=== PATIENT | male | born 1980 | race Caucasian/White ===

== ENCOUNTER 2017-04-05 10:00 | Emergency (ER) | payer MEDICAID ==
[~2017-04-05] VITALS: Ht 193 cm; Wt 88.9 kg
[~2017-04-05 10:00] MED LIST: ANXIETY PILL PO; BACTRIM DS 8001 TAB PO; ESCITALOPRAM5 MG PO; FACTOR 8 SQ; KEFLEX 500MG.500 MG PO; KEFLEX500 M1 PO; MEDROL 4MG. DOSE4 MG PO; VENTOLIN H0.09 MG/Ac IH; WELLBUTRIN XL300 MG PO
[2017-04-05 10:13] LABS: HEMOGLOBIN 15.9 g/dL (14.1-18.0); LYMPH # 1.5 K/mm3 (0.7-4.5); LYMPH % 25.5 % (10-50)
--- OUTSIDE RECORDS SUMMARY | 2017-04-05 10:31 | External Medical Summary Rpt ---
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 [address] 30 AR EV 0 MA EN MG CY J CA 03 PS 93 UL 8 E # 03 93 OX 00 12 12 0 90 30 WA 44 CO Ac AZ 78 -1 -1 .0 L- 90 OP ti EP 12 6- 6- 00 MA 52 ER ve AM 80 20 20 RT 3 90 10 10 MATT 10 1 PH HN AR G MG MA CY CA # PS UL 10 E 05 91 67 12 12 3 60 30 WA 70 CO Ac 76 -1 -1 .0 L- 98 OP ti 70 6- 6- 00 MA 74 ER ve 13 20 20 RT 3 36 10 10 MATT 0 PH HN AR G MA CY # 10 05 91 AL 68 12 12 5 79 8 BI 10 PE Ac PH 51 -0 -0 20 OP 05 TE ti AN 64 6- 8- .0 AR 4 RS ve AT 60 20 20 00 TN ON E 30 10 10 ER 1, 2 S NIELSEN 00 IN SA 0- N 40 CA M 0 RE UN IT IN C # AL 00 08 EN 60 11 12 0 50 9 CL 22 LA Ac DO 95 -0 -0 .0 IN 80 WR ti CE 10 8- 6- 00 IC 94 EN ve T 60 20 20 CE 5- 28 10 10 PH [address] 5 MA EV TA CY EN BL J ET LL C AL 68 10 11 0 99 28 BI 99 PE Ac PH 51 -2 -1 00 OP 30 TE ti AN 64 5- 1- .0 AR RS ve AT 60 20 20 00 TN ON E 30 10 10 ER 1, 2 S NIELSEN 00 IN SA 0- N 40 CA M 0 RE UN IT IN C # AL 00 08 NC 68 11 11 0 15 4 CL 22 CO Ac OM 38 -0 -0 .0 IN 61 OP ti ET 20 4- 4- 00 IC 80 ER ve MULLER 04 20 20 ZI 10 10 10 PH MATT NE 1 AR HN MA G 25 CY MG LL C TA BL ET OX 00 10 10 60 6 RI 85 BA Ac YC 60 -2 -2 .0 TE 59 RR ti OD 34 8- 9- 00 38 ON ve ON 99 20 20 AI E- 82 10 10 D MA AC 1 PH RK ET AR T AM MA IN CY OP HE 03 N 93 5- 8 32 # 5 03 93 00 09 10 1 30 30 CL 22 CO Ac 02 -1 -2 .0 IN 30 OP ti 45 0- 9- 00 IC 27 ER ve 80 20 20 09 10 10 PH MATT 0 AR HN MA G CY LL C AL 68 10 10 0 65 17 BI 98 PE Ac PH 51 -2 -2 50 OP 76 TE ti AN 64 5- 8- .0 AR 1 RS ve AT 60 20 20 00 TN ON E 30 10 10 ER 1, 2 S NIELSEN 00 IN SA 0- N 40 CA M 0 RE UN IT IN C # AL 00 08 AL 68 08 10 3 38 8 BI 98 PE Ac PH 51 -0 -2 00 OP 56 TE ti AN 64 5- 1- .0 AR RS ve AT 60 20 20 00 TN ON E 20 10 10 ER 50 1 S NIELSEN 0- IN SA 20 N 0 CA M UN RE IT IN C AL # 00 08 OX 00 10 10 0 90 30 CL 22 NO Ac AZ 17 -2 -2 .0 IN 52 RF ti EP 24 0- 0- 00 IC 99 LE ve AM 80 20 20 ET 46 10 10 PH R 10 0 AR MA HE MG CY NR Y CA LL PS C UL E BU 00 10 10 0 60 30 CL 22 CO Ac NC 18 -1 -1 .0 IN 49 OP ti OP 50 4- 4- 00 IC 78 ER ve IO 41 20 20 N 50 10 10 PH MATT HC 1 AR HN L MA G SR CY 15 LL 0 C MG TA BL ET BU 00 09 09 2 30 30 CL 22 CO Ac NC 18 -2 -2 .0 IN 37 OP ti OP 50 4- 4- 00 IC 87 ER ve IO 41 20 20 N 50 10 10 PH MATT HC 1 AR HN L MA G SR CY 15 LL 0 C MG TA BL ET 00 09 09 1 30 30 CL 22 CO Ac 02 -1 -1 .0 IN 30 OP ti 45 0- 0- 00 IC 27 ER ve 80 20 20 09 10 10 PH MATT 0 AR HN MA G CY LL C AL 68 08 09 4 39 8 AC 30 PE Ac PH 51 -0 -0 20 CR 85 TE ti AN 64 5- 9- .0 ED 1 RS ve AT 60 20 20 00 O ON E 20 10 10 HE 50 1 AL NIELSEN 0- TH SA 20 N 0 GR M UN OU IT P IN C AL # 07 0 OX 00 09 09 0 90 30 CL 22 CO Ac AZ 17 -0 -0 .0 IN 29 OP ti EP 24 9- 9- 00 IC 71 ER ve AM 80 20 20 46 10 10 PH MATT 10 0 AR HN MA G MG CY CA LL PS C UL E BU 00 08 08 3 30 30 RI 84 CO Ac NC 18 -2 -2 .0 TE 70 OP ti OP 50 5- 5- 00 72 ER ve IO 41 20 20 AI N 56 10 10 D MATT HC 0 PH HN L AR G SR MA CY 15 0 03 MG 93 8 TA # BL 03 ET 93 NY 51 08 08 15 14 RI [address] 67 -1 -1 .0 TE 59 MM ti AT 21 7- 7- 00 86 ON ve IN 26 20 20 AI D -T 30 10 10 D KA RI 1 PH TH AM AR AR CI MA IN NO CY E LO Y NE 03 93 CR 8 EA # M 03 93 60 08 08 1 18 5 RI 84 MULLER Ac 25 -1 -1 0. TE 59 MM ti 80 7- 7- 00 87 ON ve 23 20 20 0 AI D 91 10 10 D KA 6 PH TH AR AR MA IN CY E Y 03 93 8 # 03 93 59 06 08 2 8. 16 RI 83 NO Ac 31 -1 -1 50 TE 82 RF ti 00 6- 7- 0 34 LE ve 57 20 20 AI ET 92 10 10 D R 0 PH AR HE MA NR CY Y 03 93 8 # 03 93 00 04 08 5 30 30 CL 21 CO Ac 37 -0 -0 .0 IN 41 OP ti 84 8- 9- 00 IC 68 ER ve 18 20 20 80 10 10 PH MATT 5 AR HN MA G CY LL C AL 68 08 08 5 39 8 AC 27 PE Ac PH 51 -0 -0 20 CR 72 TE ti AN 64 5- 9- .0 ED 0 RS ve AT 60 20 20 00 O ON E 20 10 10 HE 50 1 AL NIELSEN 0- TH SA 20 N 0 GR M UN OU IT P IN C AL # 07 0 OX 00 06 07 1 90 30 CL 21 CO Ac AZ 17 -2 -3 .0 IN 86 OP ti EP 24 3- 0- 00 IC 17 ER ve AM 80 20 20 46 10 10 PH MATT 10 0 AR HN MA G MG CY CA LL PS C UL E 00 06 07 3 30 30 RI 83 NO Ac 02 -1 -2 .0 TE 82 RF ti 45 6- 6- 00 33 LE ve 80 20 20 AI ET 09 10 10 D R 0 PH AR HE MA NR CY Y 03 93 8 # 03 93 00 04 07 5 30 30 CL 21 CO Ac 37 -0 -0 .0 IN 41 OP ti 84 8- 9- 00 IC 68 ER ve 18 20 20 80 10 10 PH MATT 5 AR HN MA G CY LL C AL 68 02 07 3 39 8 AC 24 PE Ac PH 51 -1 -0 20 CR 75 TE ti AN 64 8- 6- .0 ED 0 RS ve AT 60 20 20 00 O ON E 20 10 10 HE 50 1 AL NIELSEN 0- TH SA 20 N 0 GR M UN OU IT P IN C AL # 07 0 NIELSEN 53 06 06 0 14 7 CL 21 MULLER Ac LF 74 -2 -2 .0 IN 88 MM ti AM 60 9- 9- 00 IC 87 ON ve ET 27 20 20 D HO 20 10 10 PH KA XA 5 AR TH ZO MA AR LE CY IN -T E MP LL Y C DS TA BL ET OX 00 06 06 1 90 30 CL 21 CO Ac AZ 17 -2 -2 .0 IN 86 OP ti EP 24 3- 3- 00 IC 17 ER ve AM 80 20 20 46 10 10 PH MATT 10 0 AR HN MA G MG CY CA LL PS C UL E 00 06 06 3 30 30 RI 83 NO Ac 02 -1 -1 .0 TE 82 RF ti 45 6- 6- 00 33 LE ve 80 20 20 AI ET 09 10 10 D R 0 PH AR HE MA NR CY Y 03 93 8 # 03 93 59 06 06 2 8. 16 RI 83 NO Ac 31 -1 -1 50 TE 82 RF ti 00 6- 6- 0 34 LE ve 57 20 20 AI ET 92 10 10 D R 0 PH AR HE MA NR CY Y 03 93 8 # 03 93 00 04 06 5 30 30 CL 21 CO Ac 37 -0 -0 .0 IN 41 OP ti 84 8- 7- 00 IC 68 ER ve 18 20 20 80 10 10 PH MATT 5 AR HN MA G CY LL C AL 68 02 06 3 40 8 AC 24 PE Ac PH 51 -1 -0 00 CR 75 TE ti AN 64 8- 1- .0 ED 0 RS ve AT 60 20 20 00 O ON E 20 10 10 HE 50 1 AL NIELSEN 0- TH SA 20 N 0 GR M UN OU IT P IN C AL # 07 0 64 05 05 18 5 RI 83 NO Ac 37 -1 -1 0. TE 39 RF ti 60 4- 4- 00 12 LE ve 72 20 20 0 AI ET 91 10 10 D R 6 PH AR HE MA NR CY Y 03 93 8 # 03 93 NIELSEN 00 05 05 20 10 RI 83 NO Ac LF 60 -1 -1 .0 TE 34 RF ti AM 35 1- 1- 00 80 LE ve ET 78 20 20 AI ET HO 12 10 10 D R XA 8 PH ZO AR HE LE MA NR -T CY Y MP 03 DS 93 8 TA # BL 03 ET 93 BE 67 05 05 0 30 10 CL 21 MU Ac NZ 87 -0 -0 .0 IN 59 LB ti ON 70 8- 8- 00 IC 99 ER ve AT 10 20 20 RY AT 60 10 10 PH E 1 AR BR 20 MA IA 0 CY N MG T LL CA C PS UL E 00 04 05 5 30 30 CL 21 CO Ac 37 -0 -0 .0 IN 41 OP ti 84 8- 7- 00 IC 68 ER ve 18 20 20 80 10 10 PH MATT 5 AR HN MA G CY LL C NC 00 04 04 12 3 RI 83 CO Ac OM 78 -2 -2 .0 TE 14 OP ti ET 11 6- 6- 00 37 ER ve MULLER 83 20 20 AI ZI 00 10 10 D MATT NE 1 PH HN AR G 25 MA CY MG 03 TA 93 BL 8 ET # 03 93 60 04 04 18 5 RI 83 MULLER Ac 25 -1 -1 0. TE 01 MM ti 80 6- 6- 00 61 ON ve 23 20 20 0 AI D 91 10 10 D KA 6 PH TH AR AR MA IN CY E Y 03 93 8 # 03 93 NIELSEN 00 04 04 14 7 RI 83 MULLER Ac LF 60 -1 -1 .0 TE 01 MM ti AM 35 6- 6- 00 62 ON ve ET 78 20 20 AI D HO 12 10 10 D KA XA 8 PH TH ZO AR AR LE MA IN -T CY E MP Y 03 DS 93 8 TA # BL 03 ET 93 00 04 04 5 30 30 CL 21 CO Ac 37 -0 -0 .0 IN 41 OP ti 84 8- 8- 00 IC 68 ER ve 18 20 20 80 10 10 PH MATT 5 AR HN MA G CY LL C OX 00 02 04 1 90 30 WA 44 CO Ac AZ 78 -2 -0 .0 L- 83 OP ti EP 12 2- 5- 00 MA 66 ER ve AM 80 20 20 RT 0 90 10 10 MATT 10 1 PH HN AR G MG MA CY CA # PS UL 10 E 05 91 AL 68 02 03 3 16 8 AC 24 PE Ac PH 51 -1 -2 80 CR 75 TE ti AN 64 8- 9- 0. ED 02 RS ve AT 60 20 20 00 O ON E 30 10 10 0 HE 1, 2 AL NIELSEN 00 TH SA 0- N 40 GR M 0 OU UN P IT IN C # AL 07 0 00 03 03 10 10 RI 82 CO Ac 09 -2 -2 .0 TE 70 OP ti 51 5- 5- 00 75 ER ve 29 20 20 AI 00 10 10 D MATT 6 PH HN AR G MA CY 03 93 8 # 03 93 CI 13 03 03 2 30 30 RI 82 CO Ac TA 66 -2 -2 .0 TE 70 OP ti LO 80 5- 5- 00 76 ER ve NC 01 20 20 AI AM 10 10 10 D MATT 1 PH HN HB AR G R MA 40 CY MG 03 93 TA 8 BL # ET 03 93 66 03 03 20 10 RI 82 NO Ac 99 -0 -0 .0 TE 39 RF ti 20 4- 4- 00 64 LE ve 23 20 20 AI ET 56 10 10 D R 0 PH AR HE MA NR CY Y 03 93 8 # 03 93 AL 68 02 02 00 41 8 AC 24 PE Ac PH 51 -1 -2 60 CR 75 TE ti AN 64 8- 6- .0 ED 0 RS ve AT 60 20 20 00 O ON E 20 10 10 HE 50 1 AL NIELSEN 0- TH SA 20 N 0 GR M UN OU IT P IN C AL CE 65 01 01 00 28 7 RI 81 MULLER Ac FU 86 -2 -2 .0 TE 79 MM ti RO 20 0- 8- 00 73 ON ve XI 03 20 20 AI D ME 42 10 10 D KA 0 PH TH AX AR AR ET M IN IL #3 E 93 Y 25 8 0 MG TA B 60 01 01 00 12 3 RI 81 MULLER Ac 25 -2 -2 0. TE 79 MM ti 80 0- 8- 00 74 ON ve 23 20 20 0 AI D 91 10 10 D KA 6 PH TH AR AR M IN #3 E 93 Y 8 59 01 01 00 8. 25 RI 81 MULLER Ac 31 -2 -2 50 TE 79 MM ti 00 0- 8- 0 75 ON ve 57 20 20 AI D 92 10 10 D KA 0 PH TH AR AR M IN #3 E 93 Y 8 DE 00 12 01 00 75 5 CL 20 NO Ac XA 05 -3 -1 .0 IN 79 RF ti ME 43 1- 4- 00 IC 10 LE ve TH 17 20 20 ET 76 09 10 PH R ON 3 AR E MA HE 0. CY NR 5 Y MG /5 ML LI Q AL 68 11 12 00 35 7 AC 23 PE Ac PH 51 -2 -1 70 CR 49 TE ti AN 64 5- 7- .0 ED 0 RS ve AT 60 20 20 00 O ON E 20 09 09 HE 50 1 AL NIELSEN 0- TH SA 20 N 0 GR M UN OU IT P IN C AL MU 63 11 11 00 20 10 WA 88 KE Ac CI 82 -1 -1 .0 L- 15 AG ti NE 40 2- 9- 00 MA 01 LE ve X 05 20 20 RT 1 D 73 09 09 RI ER 6 PH TA AR K 60 MA 0- CY 60 #5 MG 91 TA BL ET DO 00 11 11 00 14 7 RI 80 MU Ac XY 14 -0 -1 .0 TE 74 LB ti CY 33 6- 9- 00 98 ER ve CL 14 20 20 AI RY IN 20 09 09 D E 5 PH BR HY AR IA CL M N AT #3 T E 93 10 8 0 MG CA P AL 68 10 10 00 11 31 AC 22 PE Ac PH 51 -0 -2 22 CR 62 TE ti AN 64 6- 2- 0. ED 8 RS ve AT 60 20 20 00 O ON E 20 09 09 0 HE 50 1 AL NIELSEN 0- TH SA 20 N 0 GR M UN OU IT P IN C AL 00 10 10 00 45 3 RI 80 No Ac 40 -1 -2 .0 TE 40 t ti 60 2- 2- 00 11 Av ve 35 20 20 AI ai 70 09 09 D la 5 PH bl AR e M #3 93 8 AL 68 08 10 01 22 30 AC 22 PE Ac PH 51 -1 -0 80 CR 06 TE ti AN 64 8- 8- 0. ED 7 RS ve AT 60 20 20 00 O ON E 30 09 09 0 HE 1, 2 AL NIELSEN 00 TH SA 0- N 40 GR M 0 OU UN P IT IN C AL KE 00 09 09 00 60 30 RI 80 CO Ac TO 09 -1 -2 .0 TE 03 OP ti CO 30 7- 4- 00 45 ER ve NA 84 20 20 AI ZO 09 09 09 D MATT LE 2 PH HN AR G 2% M #3 CR 93 EA 8 M AL 68 08 09 00 22 28 AC 22 PE Ac PH 51 -1 -1 80 CR 06 TE ti AN 64 8- 0- 0. ED 7 RS ve AT 60 20 20 00 O ON E 30 09 09 0 HE 1, 2 AL NIELSEN 00 TH SA 0- N 40 GR M 0 OU UN P IT IN C AL AL 68 08 08 00 51 28 AC 21 PE Ac PH 51 -1 -2 70 CR 76 TE ti AN 64 8- 7- .0 ED 7 RS ve AT 60 20 20 00 O ON E 20 09 09 HE 50 1 AL NIELSEN 0- TH SA 20 N 0 GR M UN OU IT P IN C AL MU 63 07 08 00 36 9 WA 88 NO Ac CI 82 -2 -1 .0 L- 14 RF ti NE 40 8- 3- 00 MA 40 LE ve X 05 20 20 RT 1 ET D 73 09 09 R ER 6 PH AR HE 60 MA NR 0- CY Y 60 #5 MG 91 TA BL ET DO 53 07 08 00 14 7 WA 70 NO Ac XY 48 -2 -1 .0 L- 30 RF ti CY 90 8- 3- 00 MA 04 LE ve CL 11 20 20 RT 0 ET IN 90 09 09 R E 2 PH HY AR HE CL MA NR AT CY Y E 10 #5 0 91 MG CA P AL 68 07 07 00 83 28 AC 21 PE Ac PH 51 -0 -3 20 CR 03 TE ti AN 64 9- 0- .0 ED 1 RS ve AT 60 20 20 00 O ON E 30 09 09 HE 1, 2 AL NIELSEN 00 TH SA 0- N 40 GR M 0 OU UN P IT IN C AL 60 07 07 00 12 3 WA 70 NO Ac 25 -0 -1 0. L- 27 RF ti 80 9- 6- 00 MA 89 LE ve 23 20 20 0 RT 6 ET 91 09 09 R 6 PH AR HE MA NR CY Y #5 91 CE 00 07 07 00 30 30 WA 70 PE Ac LE 02 -0 -1 .0 L- 27 TE ti BR 51 9- 6- 00 MA 93 RS ve EX 52 20 20 RT 5 ON 53 09 09 20 1 PH NIELSEN 0 AR SA MG MA N CY M CA PS #5 UL 91 E HE 00 04 07 01 13 6 AC 19 PE Ac MO 94 -1 -0 80 CR 40 TE ti FI 42 0- 2- 0. ED 3 RS ve L 93 20 20 00 O ON M 20 09 09 0 HE 1, 1 AL NIELSEN 00 TH SA 0 N UN GR M IT OU P NO IN AZ C NA L HE 00 04 06 00 28 6 AC 19 PE Ac MO 94 -1 -0 50 CR 40 TE ti FI 42 0- 4- .0 ED 31 RS ve L 93 20 20 00 O ON M 10 09 09 HE 50 1 AL NIELSEN 0 TH SA UN N IT GR M OU NO P AZ IN NA C L 60 05 05 00 18 4 WA 70 NO Ac 25 -0 -2 0. L- 18 RF ti 80 2- 1- 00 MA 92 LE ve 23 20 20 0 RT 7 ET 91 09 09 R 6 PH AR HE MA NR CY Y #5 91 NIELSEN 53 05 05 00 20 10 WA 70 NO Ac LF 74 -0 -2 .0 L- 18 RF ti AM 60 2- 1- 00 MA 92 LE ve ET 27 20 20 RT 8 ET HO 20 09 09 R XA 5 PH ZO AR HE LE MA NR -T CY Y MP #5 DS 91 TA BL ET VE 00 01 05 01 18 20 WA 70 MULLER Ac NT 17 -0 -2 .0 L- 02 MM ti OL 30 7- 1- 00 MA 87 ON ve IN 68 20 20 RT 6 D 22 09 09 KA HF 0 PH TH A AR AR 90 MA IN CY E MC Y G #5 IN 91 MULLER LE R CE 68 04 05 00 20 10 WA 70 MU Ac PH 18 -2 -0 .0 L- 18 LB ti AL 00 7- 7- 00 MA 13 ER ve EX 12 20 20 RT 6 RY IN 20 09 09 2 PH BR 50 AR IA 0 MA N MG CY T CA #5 PS 91 UL E HE 00 04 04 00 13 6 AC 19 PE Ac MO 94 -1 -2 56 CR 40 TE ti FI 42 0- 3- 0. ED 3 RS ve L 93 20 20 00 O ON M 20 09 09 0 HE 1, 1 AL NIELSEN 00 TH SA 0 N UN GR M IT OU P NO IN AZ C NA L HE 00 09 03 03 13 6 AC 17 PE Ac MO 94 -1 -2 56 CR 11 TE ti FI 42 7- 6- 0. ED 3 RS ve L 93 20 20 00 O ON M 20 08 09 0 HE 1, 1 AL NIELSEN 00 TH SA 0 N UN GR M IT OU P NO IN AZ C NA L HE 00 09 02 02 13 6 AC 17 PE Ac MO 94 -1 -2 56 CR 11 TE ti FI 42 7- 6- 0. ED 3 RS ve L 93 20 20 00 O ON M 20 08 09 0 HE 1, 1 AL NIELSEN 00 TH SA 0 N UN GR M IT OU P NO IN AZ C NA L 00 02 02 00 20 2 WA 70 NO Ac 40 -0 -1 .0 L- 06 RF ti 62 2- 2- 00 MA 26 LE ve 04 20 20 RT 9 ET 10 09 09 R 1 PH AR HE MA NR CY Y #5 91 CI 55 02 02 00 14 7 70 NO Ac NC 11 -0 -1 .0 L- 06 RF ti OF 10 3- 2- 00 MA 58 LE ve LO 12 20 20 RT 7 ET XA 60 09 09 R CI 1 PH N AR HE HC MA NR L CY Y 25 0 #5 MG 91 TA B NIELSEN 53 02 02 00 14 7 WA 70 NO Ac LF 74 -0 -1 .0 L- 06 RF ti AM 60 2- 2- 00 MA 26 LE ve ET 27 20 20 RT 8 ET HO 20 09 09 R XA 5 PH ZO AR HE LE MA NR -T CY Y MP #5 DS 91 TA BL ET HE 00 09 01 01 13 6 AC 17 PE Ac MO 94 -1 -3 56 CR 11 TE ti FI 42 7- 0- 0. ED 3 RS ve L 93 20 20 00 O ON M 20 08 09 0 HE 1, 1 AL NIELSEN 00 TH SA 0 N UN GR M IT OU P NO IN AZ C NA L 60 01 01 01 12 3 WA 70 MULLER Ac 25 -0 -3 0. L- 02 MM ti 80 7- 0- 00 MA 87 ON ve 23 20 20 0 RT 5 D 91 09 09 KA 6 PH TH AR AR MA IN CY E Y #5 91 60 01 01 00 12 3 WA 70 MULLER Ac 25 -0 -1 0. L- 02 MM ti 80 7- 5- 00 MA 87 ON ve 23 20 20 0 RT 5 D 91 09 09 KA 6 PH TH AR AR MA IN CY E Y #5 91 VE 00 01 01 00 18 20 WA 70 MULLER Ac NT 17 -0 -1 .0 L- 02 MM ti OL 30 7- 5- 00 MA 87 ON ve IN 68 20 20 RT 6 D 22 09 09 KA HF 0 PH TH A AR AR 90 MA IN CY E MC Y G #5 IN 91 MULLER LE R HE 00 09 12 00 13 6 AC 17 PE Ac MO 94 -1 -1 56 CR 11 TE ti FI 42 7- 8- 0. ED 3 RS ve L 93 20 20 00 O ON M 20 08 08 0 HE 1, 1 AL NIELSEN 00 TH SA 0 N UN GR M IT OU P NO IN AZ C NA L 00 09 10 00 26 6 AC 16 PE Ac 94 -1 -0 16 CR 04 TE ti 42 7- 9- .0 ED 71 RS ve 93 20 20 00 O ON 50 08 08 HE 2 AL NIELSEN TH SA N GR M OU P IN C HE 00 09 10 00 11 6 AC 16 PE Ac MO 94 -1 -0 04 CR 04 TE ti FI 42 7- 9- 0. ED 7 RS ve L 93 20 20 00 O ON M 30 08 08 0 HE 1, 1 AL NIELSEN 70 TH SA 0 N UN GR M IT OU P NO IN AZ C NA L TR 00 08 08 00 80 20 WA 69 CO Ac IA 16 -1 -2 .0 L- 82 OP ti MC 80 3- 8- 00 MA 92 ER ve IN 00 20 20 RT 6 OL 48 08 08 MATT ON 0 PH HN E AR G 0. MA 1% CY CR #5 EA 91 M 60 08 08 00 18 4 WA 69 CO Ac 25 -1 -2 0. L- 82 OP ti 80 3- 8- 00 MA 92 ER ve 23 20 20 0 RT 4 91 08 08 MATT 6 PH HN AR G MA CY #5 91 00 07 08 00 35 28 AC 14 PE Ac 94 -1 -0 20 CR 98 TE ti 42 6- 1- 0. ED 71 RS ve 93 20 20 00 O ON 50 08 08 0 HE 4 AL NIELSEN TH SA N GR M OU P IN C 00 07 08 00 98 28 AC 14 PE Ac 94 -1 -0 00 CR 98 TE ti 42 6- 1- .0 ED 7 RS ve 93 20 20 00 O ON 50 08 08 HE 3 AL NIELSEN TH SA N GR M OU P IN C 00 06 07 00 24 14 AC 14 PE Ac 94 -3 -1 64 CR 77 TE ti 42 0- 7- 0. ED 31 RS ve 93 20 20 00 O ON 50 08 08 0 HE 4 AL NIELSEN TH SA N GR M OU P IN C 00 06 07 00 30 14 AC 14 PE Ac 94 -3 -1 52 CR 77 TE ti 42 0- 7- .0 ED 3 RS ve 93 20 20 00 O ON 50 08 08 HE 2 AL NIELSEN TH SA N GR M OU P IN C 00 04 07 02 12 6 AC 13 PE Ac 94 -0 -0 96 CR 61 TE ti 42 3- 3- 0. ED 3 RS ve 93 20 20 00 O ON 50 08 08 0 HE 3 AL NIELSEN TH SA N GR M OU P IN C 00 05 06 00 20 5 WA 44 No Ac 40 -2 -0 .0 L- 68 t ti 60 3- 5- 00 MA 40 Av ve 35 20 20 RT 4 ai 70 08 08 la 5 PH bl AR e MA CY #5 91 00 05 06 00 64 14 AC 14 No Ac 94 -2 -0 96 CR 24 t ti 42 2- 5- 0. ED 8 Av ve 93 20 20 00 O ai 50 08 08 0 HE la 3 AL bl TH e GR OU P IN C 00 04 05 01 13 6 AC 13 No Ac 94 -0 -2 56 CR 61 t ti 42 3- 2- 0. ED 3 Av ve 93 20 20 00 O ai 50 08 08 0 HE la 3 AL bl TH e GR OU P IN C 00 04 04 00 13 6 AC 13 No Ac 94 -0 -1 74 CR 61 t ti 42 3- 0- 0. ED 3 Av ve 93 20 20 00 O ai 50 08 08 0 HE la 3 AL bl TH e GR OU P IN C CE 00 01 04 01 30 30 WA 69 No Ac LE 02 -1 -0 .0 L- 56 t ti BR 51 7- 7- 00 MA 51 Av ve EX 52 20 20 RT 0 ai 53 08 08 la 20 1 PH bl 0 AR e MG MA CY CA PS #5 UL 91 E VE 00 03 04 00 18 20 WA 69 No Ac NT 17 -0 -0 .0 L- 63 t ti OL 30 6- 7- 00 MA 12 Av ve IN 68 20 20 RT 1 ai 22 08 08 la HF 0 PH bl A AR e 90 MA CY MC G #5 IN 91 MULLER LE R MU 63 03 04 00 20 10 WA 88 No Ac CI 82 -0 -0 .0 L- 11 t ti NE 40 6- 7- 00 MA 93 Av ve X 05 20 20 RT 0 ai D 71 08 08 la ER 8 PH bl AR e 60 MA 0- CY 60 #5 MG 91 TA BL ET 63 01 03 00 21 7 WA 69 No Ac 30 -2 -2 .0 L- 57 t ti 40 9- 6- 00 MA 99 Av ve 65 20 20 RT 5 ai 70 08 08 la 1 PH bl AR e MA CY #5 91 00 09 03 00 30 6 AC 41 No Ac 94 -1 -2 36 CR 19 t ti 42 7- 6- .0 ED 57 Av ve 93 20 20 00 O ai 50 07 08 HE la 2 AL bl TH e GR OU P IN C 00 09 03 00 10 6 AC 31 No Ac 94 -1 -2 44 CR 19 t ti 42 7- 6- 0. ED 57 Av ve 93 20 20 00 O ai 50 07 08 0 HE la 4 AL bl TH e GR OU P IN C 59 01 03 00 14 7 WA 69 No Ac 70 -2 -2 .0 L- 57 t ti 20 9- 6- 00 MA 99 Av ve 81 20 20 RT 6 ai 90 08 08 la 1 PH bl AR e MA CY #5 91 CE 00 01 03 00 30 30 WA 69 No Ac LE 02 -1 -2 .0 L- 56 t ti BR 51 7- 5- 00 MA 51 Av ve EX 52 20 20 RT 0 ai 53 08 08 la 20 1 PH bl 0 AR e MG MA CY CA PS #5 UL 91 E 00 09 03 01 10 6 AC 11 No Ac 94 -1 -2 44 CR 95 t ti 42 7- 4- 0. ED 71 Av ve 93 20 20 00 O ai 50 07 08 0 HE la 4 AL bl TH e GR OU P IN C 00 09 03 01 30 6 AC 11 No Ac 94 -1 -2 36 CR 95 t ti 42 7- 4- .0 ED 7 Av ve 93 20 20 00 O ai 50 07 08 HE la 2 AL bl TH e GR OU P IN C Immunization Name Date Rout CVX Reac Dose Comm Prov Is Faci e tion ent ider Refu lity Give sed n TDAP 03-10 115 [facility] No [facility] 4-20 O O VACC 15 DIST DIST INE RICT RICT 7 YRS/ HLTH HLTH > IM DEPT DEPT [place] TDAP 09-11 115 [facility] No EDEN 7-20 [facility] VACC 15 MEM MEM INE 7 HOSP HOSP YRS/ INC INC > IM IIV3 06-10 141 EDEN No EDEN 9-20 [facility] VACC 12 CO CO INE HEAL HEAL SPLI TH TH T CENT CENT VIRU ER ER S 0.5 ML DOSA GE IM USE Results Labs Lab Lab Date Result Refere Interp Status Commen Order Detail nces retati t Range on CHLAMYDIA AND GONORRHEA TESTING (07-03-2012 14:45) Chlamyd NEGATIV complet ia 012 E ed trachom 14:45 atis rRNA [Presen ce] in Unspeci fied specime n by Probe & target amplifi cation method Neisser NEGATIV complet ia 012 E ed gonorrh 14:45 oeae rRNA [Presen ce] in Unspeci fied specime n by Probe & target amplifi cation method Treponema pallidum IgG Ab [Presence] in Serum by Immunoassay (07-03-2012 14:45) Trepone NON-JULIANNE complet ma 012 CTIVE ed pallidu 14:45 m IgG Ab [Presen ce] in Serum by Immunoa ssay Treponema pallidum IgG Ab [Presence] in Serum by Immunoassay (07-03-2012 14:45) COLLECT J. complet OR 012 HOLLOWAY ed 14:45 RN ETHNICI W complet TY 012 ed 14:45 PURPOSE DIAGNOS complet OF 012 TIC ed EXAM 14:45 SPECIME BLOOD complet N 012 ed SOURCE 14:45 CHART NA complet NUMBER 012 ed 14:45 Trepone Pending complet ma 012 ed pallidu 14:45 m IgG Ab [Presen ce] in Serum by Immunoa ssay CHLAMYDIA AND GONORRHEA TESTING (07-03-2012 14:45) COLLECT J. complet [place] 012 HOLLOWAY ed 14:45 RN ETHNICI WHITE, complet TY 012 NON-HIS ed 14:45 PANIC KIT December complet EXPIRAT 012 30, ed ION 14:45 2012 DATE SYMPTOM NO complet S 012 ed 14:45 REASON VOLUNTE complet FOR 012 ER/MEDI ed REQUEST 14:45 EIDE PROBLEM SPECIME MALE complet N 012 URETHRA ed SOURCE 14:45 L PREGNAN NO complet T 012 ed 14:45 CHART NA complet NUMBER 012 ed 14:45 Chlamyd Pending complet ia 012 ed trachom 14:45 atis rRNA [Presen ce] in Unspeci fied specime n by Probe & target amplifi cation method Neisser Pending complet ia 012 ed gonorrh 14:45 oeae rRNA [Presen ce] in Unspeci fied specime n by Probe & target amplifi cation method Procedures Procedure DOS Code Location Performer Comment BLOOD [id number] FAMILY FAMILY COUNT 7 CARE CARE COMPLETE ASSOCIATE ASSOCIATE AUTO&AUTO S S DIFRNTL WBC IAADIADOO 34257 FAMILY WARE 7 CARE STREPTOCO ASSOCIATE CCUS S GROUP A BLOOD 42749 FAMILY FAMILY COUNT 7 CARE CARE COMPLETE ASSOCIATE ASSOCIATE AUTO&AUTO S S DIFRNTL WBC IAADIADOO 44144 FAMILY YAJAIRA 7 CARE STREPTOCO ASSOCIATE CCUS S GROUP A BLOOD 81118 FAMILY MULBERRY COUNT 6 CARE COMPLETE ASSOCIATE AUTO&AUTO S DIFRNTL WBC COLLECTIO 41667 FAMILY MULBERRY N 6 CARE CAPILLARY ASSOCIATE BLOOD S SPECIMEN COMPREHEN 11969 [facility] SIVE 6 [facility] METABOLIC E E PANEL [facility] BLOOD 54877 [place] COUNT 6 [facility]ALTH[facility] HEALTHCAR COMPLETE E E AUTO&AUTO [facility] DIFRNTL WBC ANTIBODY 12-12-201 61673 [place] SCREEN 6 [facility] RBC EACH E E SERUM [facility] TECHNIQUE BLOOD 99207 [place] TYPING 6 [facility]ALTH[facility] HEALTHCAR SEROLOGIC E E [facility] [address] [place] VARGAS EXTREMITY 6 MEDICAL NON-VASC SERV FOUNDATIO REAL-TIME N IMG LMTD PROTHROMB 80778 [place] IN TIME 6 [facility]ALTHCAR HEALTHCAR E E [facility] THROMBOPL 88411 [place] ASTIN 6 HEALTHCAR HEALTHCAR TIME E E PARTIAL [facility] PLASMA/WH OLE BLOOD BLOOD 70203 [place] TYPING 6 [facility]ALTHCAR HEALTHCAR SEROLOGIC E E RH (D) [facility] CUL BACT 84058 COMBINED COMBINED XCPT 6 PHYSICIAN PHYSICIAN URINE S LA S LA BLOOD/STO OL AEROBIC ISOL IAADIADOO 03374 FAMILY ISAMAR 6 CARE STREPTOCO ASSOCIATE CCUS S GROUP A IAADIADOO 96930 FAMILY ISAMAR 6 CARE TAR STREPTOCO ASSOCIATE CCUS S GROUP A BLOOD 73735 FAMILY FAMILY COUNT 6 CARE CARE COMPLETE ASSOCIATE ASSOCIATE AUTO&AUTO S S DIFRNTL WBC RADEX 71460 [place] [facility] SINUSES 6 MEDICAL PARANASAL IMAGING COMPL ASS MINIMUM 3 VIEWS IAADIADOO 62134 FAMILY ISAMAR 6 CARE TAR STREPTOCO ASSOCIATE CCUS S GROUP A BLOOD 99205 FAMILY FAMILY COUNT 6 CARE CARE COMPLETE ASSOCIATE ASSOCIATE AUTO&AUTO S S DIFRNTL WBC RADIOLOGI 56972 [place] NICKELS C 6 MEDICAL MAL[place] EXAMINATI SERV ON CHEST FOUNDATIO SINGLE N VIEW FRONTAL RADEX 06364 [place] ABDOMEN 1 6 MEDICAL [place] SERV ANTEROPOS FOUNDATIO TERIOR N VIEW BLOOD 75406 FAMILY ISAMAR COUNT 6 CARE TAR COMPLETE ASSOCIATE AUTO&AUTO S DIFRNTL WBC IAADIADOO 81202 FAMILY ISAMAR 6 CARE TAR STREPTOCO ASSOCIATE CCUS S GROUP A COLLECTIO 20404 FAMILY ISAMAR N 6 CARE TAR CAPILLARY [place] B[place] [address] [facility] SIVLA IN[facility]ION 6 [facility] INC INC ROPHYLAXI S /DX 1ST TO 1 [place] [address] SHIRA SILVA INFUSION 6 [facility] THERAPY INC INC PROPHYLAX IS/DX EA HOUR UNCLASSIF J3490 SHIRA SILVA IED DRUGS 6 [facility] INC INC UNCLASSIF J3490 SHIRA SILVA IED DRUGS 6 [facility] [place] [address] SHIRA SILVA INFUSION 6 [facility] THERAPY INC INC PROPHYLAX IS/DX EA [place] [address] SHIRA SILVA INFUSION 6 [facility] THERAPY/P INC INC ROPHYLAXI S /DX 1ST TO 1 [place] [address] SHIRA SILVA INFUSION 6 [facility] THERAPY/P INC INC ROPHYLAXI S /DX 1ST TO 1 [place] [address] SHIRA SILVA INFUSION 6 [facility] THERAPY INC INC PROPHYLAX IS/DX EA HOUR UNCLASSIF J3490 SHIRA SILVA IED DRUGS 6 [facility] INC INC UNCLASSIF J3490 SHIRA SILVA IED DRUGS 6 [facility] [place] [address] SHIRA SILVA INFUSION 6 [facility] THERAPY INC INC PROPHYLAX IS/DX EA HOUR BASIC 82331 SHIRA SILVA METABOLIC 6 [facility] PANEL INC INC CALCIUM TOTAL DRUG 47089 SHIRA SILVA SCREEN 6 [facility] QU[place]IT[place] [address] SHIRA SILVA INFUSION 6 [facility] THERAPY/P INC INC ROPHYLAXI S /DX 1ST TO 1 [place] [address] SHIRA SILVA INFUSION 6 [facility] THERAPY/P INC INC ROPHYLAXI S /DX 1ST TO 1 [place] [address] SHIRA SILVA INFUSION 6 [facility] THERAPY INC INC PROPHYLAX IS/DX EA HOUR UNCLASSIF J3490 SHIRA SILVA IED DRUGS 6 [facility] INC INC UNCLASSIF J3490 SHIRA SILVA IED DRUGS 6 [facility] [place] [address] SHIRA SHIRA INFUSION 6 [facility] THERAPY INC [place] [address] SHIRA HEARDON INFUSION 6 [facility] THERAPY/P INC INC ROPHYLAXI S /DX 1ST TO 1 [place] [address] SHIRAROCKY SILVA INFUSION 6 [facility] THERAPY/P INC INC ROPHYLAXI S /DX 1ST TO 1 [place] [address] SHIRAROCKY SILVA INFUSION 6 [facility] THERAPY INC [place] [address] SHIRAROCKY SILVA INFUSION 6 [facility] THERAPY INC [place] [address] SHIRA HEARDON INFUSION 6 [facility] THERAPY/P INC INC ROPHYLAXI S /DX 1ST TO 1 HR DRUG 54387 SHIRA SILVA SCREEN 6 [facility] QUANTITAT INC INC JEF VANCOMYCI N COLLECTIO 43658 SHIRA SILVA N VENOUS 6 [facility] BLOOD INC INC VENIPUNCT URE UNCLASSIF J3490 SHIRA SILVA IED DRUGS 6 [facility] INC INC UNCLASSIF J3490 SHIRA SILVA IED DRUGS 6 [place] [address] SHIRA HEARDON INFUSION 6 [facility] THERAPY/P INC INC ROPHYLAXI S /DX 1ST TO 1 HR BLOOD 36317 FAMILY FAMILY COUNT 6 CARE CARE COMPLETE ASSOCIATE ASSOCIATE AUTO&[place] [address] SHIRAROCKY SILVA INFUSION 6 [facility] THERAPY INC INC PROPHYLAX IS/DX EA HOUR BLOOD 52640 FAMILY FAMILY COUNT 6 CARE CARE COMPLETE ASSOCIATE ASSOCIATE AUTO&AUTO S S DIFRNTL WBC BLOOD 18246 FAMILY FAMILY COUNT 6 CARE CARE COMPLETE ASSOCIATE ASSOCIATE AUTO&AUTO S S DIFRNTL WBC BLOOD 83275 FAMILY FAMILY COUNT 6 CARE CARE COMPLETE ASSOCIATE ASSOCIATE AUTO&AUTO S S DIFRNTL WBC IAADIADOO 82014 FAMILY CROWDY 6 CARE CRI STREPTOCO ASSOCIATE CCUS S GROUP A BLOOD 02067 FAMILY FAMILY COUNT 5 CARE CARE COMPLETE ASSOCIATE ASSOCIATE AUTO&AUTO S S DIFRNTL WBC BLOOD 19247 FAMILY FAMILY COUNT 5 CARE CARE COMPLETE ASSOCIATE ASSOCIATE AUTO&AUTO S S DIFRNTL WBC ANKLE L4350 [employer], [employer], [employer] CONTROL 5 ORTHOSIS STIRRUP STYL RIGID PREFAB BLOOD 54505 FAMILY FAMILY COUNT 5 CARE CARE COMPLETE ASSOCIATE ASSOCIATE AUTO&AUTO S S DIFRNTL WBC BLOOD 36326 FAMILY FAMILY COUNT 5 CARE CARE COMPLETE ASSOCIATE ASSOCIATE AUTO&AUTO S S DIFRNTL WBC IM ADM 79715 [facility] PR[facility] SUBQ/IM HLTH DEPT HLTH DEPT NJXS 1 [place] VACC[facility] TDAP 33664 [facility] VACCINE 7 [facility] YRS/> IM HLTH [place] [address] COMBINED COMBINED TROPONIN 5 PHYSICIAN PHYSICIAN QUALITATI S LA S LA VE CYANOCOBA 89648 COMBINED COMBINED HARDY 5 PHYSICIAN PHYSICIAN VITAMIN S LA S LA B-12 MYOGLOBIN 69315 COMBINED COMBINED 5 PHYSICIAN PHYSICIAN S LA S LA COMPREHEN 28378 COMBINED COMBINED SIVE 5 PHYSICIAN PHYSICIAN METABOLIC S LA S LA PANEL CREATINE 40721 COMBINED COMBINED KINASE MB 5 PHYSICIAN PHYSICIAN FRACTION S LA S LA ONLY INJECTION J7185 BIORX BIORX FACTOR 5 VIII PER IU APPLICATI 72283 SHRIA SILVA ON SHORT 5 [facility] ARM INC INC SPLINT FOREARM-H AND STATIC RADEX 54204 SH[facility]A SILVA HAND 5 [facility] MINIMUM 3 INC INC VIEWS CAST Q4010 [facility] SUPPLIES 5 PHYSICIAN JAM SHORT ARM S GROUP CAST ADULT FIBERGLAS S RADEX 62136 SHIRA SILVA WRIST 5 [facility] COMPLETE INC INC MINIMUM 3 VIEWS APPLICATI 50486 [facility] ON CAST 5 PHYSICIAN JAM ELBOW S GROUP FINGER SHORT ARM WRIST L3908 ADVANCED ADVANCED HAND 5 TECHNOLOG TECHNOLOG ORTHOSIS IES INC IES INC EXT CONTROL COCK-UP PREFAB US SOFT 95271 SHIRA SILVA TISSUE 5 [facility] HEAD & INC INC NECK REAL TIME IMGE DOCM BLOOD 61908 FAMILY FAMILY COUNT 5 CARE CARE COMPLETE ASSOCIATE ASSOCIATE AUTO&AUTO S S DIFRNTL WBC BLOOD 29518 FAMILY FAMILY COUNT 5 CARE CARE COMPLETE ASSOCIATE ASSOCIATE AUTO&AUTO S S DIFRNTL WBC INJECTION J7185 [facility]OR[facility] BIORX FACTOR 5 VIII PER IU RADEX 00608 MATEO COCHRANAN ANKLE 5 MEDICAL FRA COMPLETE SERV MINIMUM 3 FOUNDATIO VIEWS N IAADIADOO 80001 FAMILY YAJAIRA 5 CARE R H STREPTOCO ASSOCIATE CCUS S GROUP A BLOOD 16635 FAMILY FAMILY COUNT 5 CARE CARE COMPLETE ASSOCIATE ASSOCIATE AUTO&AUTO S S DIFRNTL WBC INJECTION J7185 BIOR[facility] BIORX FACTOR 5 VIII PER IU INJECTION J7185 BIORX BIORX FACTOR 5 VIII PER IU SIMPLE 08282 SHIRA DE LA VEGA REPAIR 5 [facility] / P 2.5CM/< TDAP 64209 SHIRA SILVA VACCINE 7 5 [facility] YRS/> IM INC INC IM ADM 30637 SHIRA SILVA PRQ ID 5 [facility] SUBQ/IM INC INC NJXS 1 VACCINE BLOOD 27284 FAMILY FAMILY COUNT 4 CARE CARE COMPLETE ASSOCIATE ASSOCIATE AUTO&AUTO S S DIFRNTL WBC IAADIADOO 93382 FAMILY YAJAIRA 4 CARE R H INFLUENZA ASSOCIATE S BLOOD 80592 FAMILY FAMILY COUNT 4 CARE CARE COMPLETE ASSOCIATE ASSOCIATE AUTO&AUTO S S DIFRNTL WBC BLOOD 54688 FAMILY FAMILY COUNT 4 CARE CARE COMPLETE ASSOCIATE ASSOCIATE AUTO&AUTO S S DIFRNTL WBC INJECTION J7185 BIORX BIORX FACTOR 4 VIII PER IU BLOOD 50946 FAMILY FAMILY COUNT 4 CARE CARE COMPLETE ASSOCIATE ASSOCIATE AUTO&AUTO S S DIFRNTL WBC INJECTION J7185 BIORX BIORX FACTOR 4 VIII PER IU INJECTION J7185 BIORX BIORX FACTOR 4 VIII PER IU BLOOD 25535 FAMILY FAMILY COUNT 4 CARE CARE COMPLETE ASSOCIATE ASSOCIATE AUTO&AUTO S S DIFRNTL WBC ADD LOW L2330 HARJIT LOMBARDI EXT LACER 4 ORTHOPEDI ORTHOPEDI MOLD PT CS CS MDL CSTM ORTHOTIC ONLY ADDITION L2210 HARJIT LOMBARDI LOWER 4 ORTHOPEDI ORTHOPEDI EXTREM CS CS DORSIFLEX ASSIST EA JOINT ADD LW L2820 HARJIT LOMBARDI EXT ORTH 4 ORTHOPEDI ORTHOPEDI SFT CS CS INTERFCE MOLD BELW KNEE ANK FT L1940 HARJIT LOMBARDI ORTHOTIC 4 ORTHOPEDI ORTHOPEDI PLASTIC/O CS CS TH MATERIAL CUSTOM PAUL INJECTION J7185 BIORX BIORX FACTOR 4 VIII PER IU BLOOD 46876 LISA Gordon COUNT 4 G G COMPLETE AUTO&AUTO DIFRNTL WBC IAADIADOO 52717 MULBERRY MULBERRY 4 NEW NEW STREPTOCO CCUS GROUP A BLOOD 02153 MULBERRY MULBERRY COUNT 4 NEW NEW COMPLETE AUTO&AUTO DIFRNTL WBC IAADIADOO 38514 MULBERRY MULBERRY 4 NEW NEW STREPTOCO CCUS GROUP A BLOOD 18953 MULBERRY BALBAUGH COUNT 4 NEW AND COMPLETE AUTO&AUTO DIFRNTL WBC INJECTION J7185 BIORX BIORX FACTOR 4 VIII PER IU INJECTION J7185 BIORX BIORX FACTOR 4 VIII PER IU INJECTION J7185 BIORX BIORX FACTOR 4 VIII PER IU BLOOD 24708 LISA Gordon COUNT 4 G G COMPLETE AUTO&AUTO DIFRNTL WBC NONINVASI 14258 LISA Gordon VE 4 G G EAR/PULSE OXIMETRY SINGLE DETER COLLECTIO 82814 LISA Gordon N 4 G G CAPILLARY BLOOD SPECIMEN NEBULIZER E0570 HOLDEN HATCH WITH 4 HOME HOME COMPRESSO MEDICAL MEDICAL R EQUIPME EQUIPME RADIOLOGI 29468 SYL SYL C EXAM 4 MARA MARA CHEST 2 VIEWS FRONTAL&L ATERAL ADMN SET A7003 YOUR YOUR SM VOL 4 [facility]ARM[facility]Y [facility] PNEUMAT NEBULIZR DISPBL NONINVASI 82280 FAMILY SCOTT VE 3 CARE CARE EAR/PULSE ASSOCIATE ASSOCIATE OXIMETRY S S SINGLE DETER BLOOD 64628 MULBERRY MULBERRY COUNT 3 NEW NEW COMPLETE AUTO&AUTO DIFRNTL WBC BLOOD 21661 FAMILY GONZALEZ COUNT 3 CARE PAUL COMPLETE ASSOCIATE AUTO&AUTO S DIFRNTL WBC COLLECTIO 35360 FAMILY GONZALEZ N 3 CARE PAUL CAPILLARY ASSOCIATE BLOOD S SPECIMEN INJECTION J7185 BIORX BIORX FACTOR 3 VIII PER IU INJECTION J7185 BIORX BIORX FACTOR 3 VIII PER IU INJECTION J7185 BIORX BIORX FACTOR 3 VIII PER IU INJECTION J7185 BIORX BIORX FACTOR 3 VIII PER IU INJECTION J7185 BIORX BIORX FACTOR 3 VIII PER IU INJECTION J7185 BIORX BIORX FACTOR 3 VIII PER IU INJECTION J7185 BIORX BIORX FACTOR 3 VIII PER IU INJECTION J7185 BIORX BIORX FACTOR 3 VIII PER IU SUPPLIES A4221 BIORX BIORX FOR MAINT 3 NON-INS RX INFUS CATH PER WK RADEX 25844 [facility] 3 Y Y [facility] MINIMUM 3 VIEWS RADEX 55652 SYL SYL SPINE 3 MARA MARA LUMBOSACR AL 2/3 VIEWS RADEX 27670 SHIRA SILVA SPINE 3 [facility] LUMBOSACR INC INC AL MINIMUM 4 VIEWS URNLS DIP 14585 LISA GONZALEZ J 3 G G STICK/TAB LET RGNT NON-AUTO W/O MICRSCP INJECTION J7185 BIORX BIORX FACTOR 3 VIII PER IU SUPPLIES A4221 BIORX BIORX FOR MAINT 3 NON-INS RX INFUS CATH PER WK ORTHOTIC 90133 SHIRA SILVA MGMT&DAREN 3 [facility] [place] UXTR INC INC LXTR&/TRN K EA 15 ELB ORTH L3760 ADVANCED ADVANCED W/ADJ 3 TECHNOLOG TECHNOLOG LOCK JNT IES INC IES INC PRFAB W/FIT&ADJ TYPE INJ F/ J7186 BIORX BIORX VWF CMPLX 3 PER FACTOR VIII IU SUPPLIES A4221 BIORX BIORX FOR MAINT 3 NON-INS RX INFUS CATH PER WK BLOOD 35054 MULBERRY MULBERRY COUNT 3 NEW NEW COMPLETE AUTO&AUTO DIFRNTL WBC SUPPLIES A4221 BIORX BIORX FOR MAINT 2 NON-INS RX INFUS CATH PER WK INJ AHF/ J7186 BIORX BIORX VWF CMPLX 2 PER FACTOR VIII IU INJ AHF/ J7186 BIORX BIORX VWF CMPLX 2 PER FACTOR VIII IU RADEX 24406 [place] CHEPE ELBOW 2 MEDICAL AMBROSIO COMPLETE SERV MINIMUM 3 FOUNDATIO VIEWS N IIV3 70318 SHIRA SILVA VACCINE 2 [facility] VIRUS 0.5 ML DOSAGE IM USE E-STIM G0283 SHIRA SILVA 1/> AREAS 2 [facility] OTH THAN INC INC WND CARE PART TX PLAN APPL 38778 SHIRA SILVA MODALITY 2 [facility] 1/> AREAS INC INC ULTRASOUN D EA 15 MIN APPLICATI 39542 SHIRA SILVA ON 2 [facility] MODALITY INC INC 1/> AREAS HOT/COLD PACKS MANUAL 04747 SHIRA SILVA THERAPY 2 [facility] TQS 1/> INC INC REGIONS EACH 15 MINUTES INJ AHF/ J7186 BIORX BIORX VWF CMPLX 2 PER FACTOR VIII IU APPL 28858 SHIRA SILVA MODALITY 2 [facility] 1/> AREAS INC INC ULTRASOUN D EA 15 MIN APPLICATI 46797 SHIRA SILVA ON 2 [facility] MODALITY INC INC 1/> AREAS HOT/COLD PACKS E-STIM G0283 SHIRA SILVA 1/> AREAS 2 [facility] OTH THAN INC INC WND CARE PART TX PLAN MANUAL 38590 SHIRA SILVA THERAPY 2 [facility] TQS 1/> INC INC REGIONS EACH 15 MINUTES INJ AHF/ J7186 BIORX BIORX VWF CMPLX 2 PER FACTOR VIII IU MANUAL 70831 SHIRA SILVA THERAPY 2 [facility] TQS 1/> INC INC REGIONS EACH 15 MINUTES APPL 89345 SHIRA SILVA MODALITY 2 [facility] 1/> AREAS INC INC ULTRASOUN D EA 15 MIN APPLICATI 63735 SHIRA SILVA ON 2 [facility] MODALITY INC INC 1/> AREAS HOT/COLD PACKS E-STIM G0283 SHIRA SILVA 1/> AREAS 2 [facility] OTH THAN INC INC WND CARE PART TX PLAN E-STIM G0283 SHIRA SILVA 1/> AREAS 2 [facility] OTH THAN INC INC WND CARE PART TX PLAN APPL 69489 SHIRA SILVA MODALITY 2 [facility] 1/> AREAS INC INC ULTRASOUN D EA 15 MIN MANUAL 62973 SHIRA SILVA THERAPY 2 [facility] TQS 1/> INC INC REGIONS EACH 15 MINUTES APPLICATI 85628 SHIRA SILVA ON 2 [facility] MODALITY INC INC 1/> AREAS HOT/COLD PACKS APPLICATI 84188 SHIRA SILVA ON 2 [facility] MODALITY INC INC 1/> AREAS HOT/COLD PACKS MANUAL 58011 SHIRA SILVA THERAPY 2 [facility] TQS 1/> INC INC REGIONS EACH 15 MINUTES APPL 57759 SHIRA SILVA MODALITY 2 [facility] 1/> AREAS INC INC ULTRASOUN D EA 15 MIN E-STIM G0283 SHIRA SILVA 1/> AREAS 2 [facility] OTH THAN INC INC WND CARE PART TX PLAN E-STIM G0283 SHIRA SILVA 1/> AREAS 2 [facility] OTH THAN INC INC WND CARE PART TX PLAN THERAPEUT 23373 SHIRA SILVA IC PX 1/> 2 [facility] AREAS INC INC EACH 15 MIN EXERCISES APPL 31335 SHIRA SILVA MODALITY 2 [facility] 1/> AREAS INC INC ULTRASOUN D EA 15 MIN MANUAL 08979 SHIRA SILVA THERAPY 2 [facility] TQS 1/> INC INC REGIONS EACH 15 MINUTES APPLICATI 53924 SHIRA SILVA ON 2 [facility] MODALITY INC INC 1/> AREAS HOT/COLD PACKS INJ AHF/ J7186 BIORX BIORX VWF CMPLX 2 PER FACTOR VIII IU THROMBOPL 01671 [facility] ASTIN 2 Y Y TIME [facility] PARTIAL PLASMA/WH OLE BLOOD PROTHROMB 06714 [facility] IN TIME 2 Y Y [facility] SEDIMENTA 83258 [facility] TION RATE 2 Y Y RBC [facility] AUTOMATED BLOOD 85079 [facility] COUNT 2 Y Y COMPLETE [facility] AUTO&AUTO DIFRNTL WBC THERAPEUT 88697 [facility] IC 2 Y Y INJECTION [facility] IV PUSH EACH NEW DRUG INJECTION J2270 [facility] MORPHINE 2 Y Y SULFATE [facility] UP TO 10 MG C-REACTIV 42083 [facility] E PROTEIN 2 Y Y [facility] INJECTION J2405 [facility] PER 1 MG RADEX 19861 [place] MERHAR ELBOW 2 MEDICAL GAR COMPLETE SERV MINIMUM 3 FOUNDATIO VIEWS N COLLECTIO 25591 [facility] N VENOUS 2 Y Y BLOOD [facility] VENIPUNCT URE THER 45206 [facility] PROPH/DX 2 Y Y NJX IV [facility] PUSH SINGLE/1S T SBST/DRUG APPLICATI 97244 SHIRA SILVA ON 2 [facility] MODALITY INC INC 1/> AREAS HOT/COLD PACKS MANUAL 12655 SHIRA SILVA THERAPY 2 [facility] TQS 1/> INC INC REGIONS EACH 15 MINUTES PHYSICAL 54492 SHIRA SILVA THERAPY 2 [facility] EVALUATIO INC INC N ARTHROSCO 50245 CAM LEVY PY ELBOW 2 SRI SRI SURGICAL SYNOVECTO MY COMPLETE ARTHROSCO 56042 [facility] PY ELBOW 2 Y Y SURGICAL HOSPITAL HOSPITAL DEBRIDEME NT EXTENSIVE PARTIAL 77930 MENDYLEONORMOI AVINI EXCISION 2 SRI [facility] BONE OLECRANON PROCESS INJECTION J2250 [facility] 2 Y Y [facility] HCL PER 1 MG INJECTION J2270 [facility] MORPHINE 2 [facility] UP TO 10 MG INJECTION J2405 [facility] 2 Y Y ONDANSETR [facility] ON HCL PER 1 MG INJECTION J1170 [facility] 2 Y Y HYDROMORP [facility] KADY UP TO 4 MG RINGERS J7120 [facility] LACTATE 2 Y Y INFUSION [facility] UP TO 1000 CC BLOOD 87208 [facility] COUNT 2 Y Y COMPLETE [facility] [place] [address] [facility] SURG 2 Y Y PATHOLOGY [facility] GROSS&SONU ROSCOPIC EXAM PROTHROMB 85234 [facility] IN TIME 2 Y Y HOSPITAL HOSPITAL ANESTHESI 65783 [facility] RE[facility] A ELBOW 2 LTH [place] ANESTHESI DIAGNOSTI A PSC C ARTHROSCO PIC THROMBOPL 59631 [facility] ASTIN 2 Y Y TIME HOSPITAL HOSPITAL PARTIAL PLASMA/WH OLE BLOOD INJECTION J3010 [facility] FENTANYL 2 Y Y CITRATE [facility] 0.1 MG INJECTION J2710 [facility] 2 Y Y NEOSTIGMI [facility] NE METHYLSUL FATE UP TO 0.5 MG UNCLASSIF J3490 [facility] IED DRUGS 2 Y Y HOSPITAL HOSPITAL ARTHRT 63298 CAM LEVY ELBOW 2 [facility] SRI CAPSULAR EXCISION CAPSULAR RLS SPX INJ AHF/ J7186 [facility]OR[facility]ORX VWF CMPLX 2 PER FACTOR VIII IU INJ AHF/ J7186 [facility]ORX VWF CMPLX 2 PER FACTOR VIII IU FACTOR J7190 BIORX BIORX VIII 2 ANTIHEMOP HILIC FACTOR HUMAN PER IU RADEX 26045 [place] CHEPE ELBOW 2 MEDICAL AMBROSIO COMPLETE SERV MINIMUM 3 FOUNDATIO VIEWS N INJ AHF/ J7186 BIORX BIORX VWF CMPLX 2 PER FACTOR VIII IU FACTOR J7190 [facility] BIORX VIII 2 ANTIHEMOP HILIC FACTOR HUMAN PER IU BLOOD 74289 [facility] OSORIOOND COUNT 2 [place] KATI[place] COMPLETE AUTO&AUTO DIFRNTL WBC INJ AHF/ J7186 BIORX BIORX VWF CMPLX 2 PER FACTOR VIII IU BLOOD 68634 LISA Gordon COUNT 2 COMPLETE AUTO&AUTO DIFRNTL WBC RADIOLOGI 90156 SHIRA Desai EXAM 2 [facility] CHEST 2 INC INC VIEWS FRONTAL&L ATERAL TRANSFERA 37052 LISA Gordon HANA ANT SE 2 ASPARTATE AMINO AST SGOT TRANSFERA 90628 LISA Gordon SE 2 ALANINE AMINO ALT SGPT PROTHROMB 76669 LISA Gordon IN TIME 2 SUPPLIES A4221 BIORX BIORX FOR MAINT 2 NON-INS RX INFUS CATH PER WK FACTOR J7190 BIORX BIORX VIII 2 ANTIHEMOP HILIC FACTOR HUMAN PER IU INJ AHF/ J7186 BIORX BIORX VWF CMPLX 2 PER FACTOR VIII IU INJ AHF/ J7186 BIORX BIORX VWF CMPLX 2 PER FACTOR VIII IU FACTOR J7190 BIORX BIORX VIII 2 ANTIHEMOP HILIC FACTOR HUMAN PER IU CULTURE 86344 COMBINED COMBINED BACTERIAL 2 PHYSICIAN PHYSICIAN S LA S LA QUANTTATI VE COLONY COUNT URINE BLOOD 63744 CHAZ OSORIOOND COUNT 2 [place] COMPLETE AUTO&AUTO DIFRNTL WBC URNLS DIP 43139 CHAZ OSORIOOND 2 [place] STICK/TAB LET RGNT NON-AUTO W/O MICRSCP LOCM Q9967 SHIRA SILVA 300-399 2 [facility] MG/ML INC INC IODINE CONCENTRA TION PER ML COMPREHEN 37227 SHIRA SILVA SIVE 2 [facility] METABOLIC INC INC PANEL URNLS DIP 67359 SHIRA SILVA 2 [facility] STICK/TAB INC INC LET REAGENT AUTO MICROSCOP Y BLOOD 22304 SH[facility] SILVA COUNT 2 [facility] COMPLETE INC INC AUTO&[place] [address] SYL SYL ABDOMEN & 2 MARA MARA PELVIS W/CONTRAS T MATERIAL THROMBOPL 05989 SH[facility] SILVA ASTIN 2 [facility] TIME INC INC PARTIAL PLASMA/WH OLE BLOOD PROTHROMB 07868 SHIRA [facility] IN TIME 2 [facility] THO INC FACTOR J7190 BIORX BIORX VIII 2 ANTIHEMOP HILIC FACTOR HUMAN PER IU BLOOD 47683 FAMILY FAMILY COUNT 2 CARE CARE COMPLETE ASSOCIATE ASSOCIATE AUTO&AUTO S S DIFRNTL WBC FACTOR J7190 [facility]OR[facility] BIORX VIII 1 ANTIHEMOP HILIC FACTOR HUMAN PER IU ORTHOTIC 90854 SHIRA SILVA MGMT&DAREN 1 [facility] [place] UXTR INC INC LXTR&/TRN K EA 15 ANK FT L1906 ADVANCED ADVANCED ORTHOS 1 TECHNOLOG TECHNOLOG MX-LIG IES INC IES INC ANK SUPT PREFB OFF SHELF BLOOD 19790 FAMILY FAMILY COUNT 1 CARE CARE COMPLETE ASSOCIATE ASSOCIATE AUTO&AUTO S S DIFRNTL WBC BLOOD 66340 FAMILY FAMILY COUNT 1 CARE CARE COMPLETE ASSOCIATE ASSOCIATE AUTO&AUTO S S DIFRNTL WBC IAADIADOO 69641 FAMILY MULBERRY 1 CARE NEW STREPTOCO ASSOCIATE CCUS S GROUP A IAADIADOO 28981 FAMILY MULBERRY 1 CARE NEW STREPTOCO ASSOCIATE CCUS S GROUP A BLOOD 29956 FAMILY FAMILY COUNT 1 CARE CARE COMPLETE ASSOCIATE ASSOCIATE AUTO&AUTO S S DIFRNTL WBC BLOOD 82638 SHIRA SIVLA OCCULT 1 [facility] PEROXIDAS INC INC E ACTV QUAL FECES 1-3 [place] [address] SHIRA SILVA CLOSTRIDI 1 [facility] [place] [address] SHIRA SILVA ROTAVIRUS 1 [facility] INC INC IAADIADOO 61031 FAMILY YAJAIRA 1 CARE R H STREPTOCO ASSOCIATE CCUS S GROUP A IAADIADOO 77755 FAMILY LISA J 1 CARE STREPTOCO ASSOCIATE CCUS S GROUP A RADIOLOGI 82678 [facility] SILVA C EXAM 0 [facility] CHEST 2 INC INC VIEWS FRONTAL&L ATERAL BLOOD 89271 FAMILY MULBERRY COUNT 0 CARE NEW COMPLETE ASSOCIATE AUTO&AUTO S DIFRNTL WBC IAADIADOO 75559 FAMILY MULBERRY 0 CARE NEW STREPTOCO ASSOCIATE CCUS S GROUP A ARTHROSCO 83362 [place] MICHOACANO PY ANKLE 0 MEDICAL ALLEN SURGICAL SERV DEBRIDEME FOUNDATIO NT LIMITED ANESTHESI 18419 [place] YADIRA A 0 MEDICAL JOSH ARTHROSCO SERVICES PIC PROCEDURE ANKLE & FOOT OTH LOCAL 8087 [facility] 0 Y Y EXCISION/ [facility] DESTRUCTI ON LESION ANK JOINT IAADIADOO 31497 FAMILY LISA J 0 CARE STREPTOCO ASSOCIATE CCUS S GROUP A BLOOD 90064 FAMILY FAMILY COUNT 0 CARE CARE COMPLETE ASSOCIATE ASSOCIATE AUTO&AUTO S S DIFRNTL WBC RADEX 27234 [place] MANAS ANGELIQUE ANKLE 0 MEDICAL COMPLETE SERV MINIMUM 3 FOUNDATIO VIEWS 25 [id number] [facility] SHANI HYDROXY 0 AMERIC AMERIC INCLUDES HOLDING HOLDING FRACTIONS IF PERFORMED THERAPEUT 07923 [facility] IC PX 1/> 0 Y Y [facility] 15 MIN EXERCISES PHYSICAL 98036 [facility] 9 Y Y [facility] N APPL 46840 SHIRA SILVA MODALITY 9 [facility] 1/> AREAS INC INC ELEC STIMJ UNATTENDE D THERAPEUT 22508 SHIRA SILVA IC PX 1/> 9 [facility] AREAS INC INC EACH 15 MIN EXERCISES APPLICATI 23620 [facility] SILVA ON 9 [facility] MODALITY INC INC 1/> AREAS HOT/COLD PACKS APPL 65230 [facility] SILVA MODALITY 9 [facility] 1/> AREAS INC INC ULTRASOUN D EA 15 MIN APPL 59759 SH[facility] SILVA MODALITY 9 [facility] 1/> AREAS INC INC ULTRASOUN D EA 15 MIN APPLICATI 55521 SHIRA SILVA ON 9 [facility] MODALITY INC INC 1/> AREAS HOT/COLD PACKS THERAPEUT 68898 SHIRA SILVA IC PX 1/> 9 [facility] AREAS INC INC EACH 15 MIN EXERCISES APPL 81538 SHIRA SILVA MODALITY 9 [facility] 1/> AREAS INC INC ELEC STIMJ UNATTENDE D RADEX 72102 SHIRA SHIRA ELBOW 9 [facility] COMPLETE INC INC MINIMUM 3 VIEWS APPL 20984 SHIRA SILVA MODALITY 9 [facility] 1/> AREAS INC INC ELEC STIMJ UNATTENDE D THERAPEUT 10914 SHIRA SHIRA IC PX 1/> 9 [facility] AREAS INC INC EACH 15 MIN EXERCISES APPLICATI 48794 SHIRAROCKY SILVA ON 9 [facility] MODALITY INC INC 1/> AREAS HOT/COLD PACKS APPL 39647 SHIRA SILVA MODALITY 9 [facility] 1/> AREAS INC INC ULTRASOUN D EA 15 MIN APPL 39848 SHIRA SILVA MODALITY 9 [facility] 1/> AREAS INC INC ULTRASOUN D EA 15 MIN APPLICATI 58176 SHIRA SILVA ON 9 [facility] MODALITY INC INC 1/> AREAS HOT/COLD PACKS APPL 76466 SHIRA SILVA MODALITY 9 [facility] 1/> AREAS INC INC IONTOPHOR ESIS EA 15 MIN BLOOD 75814 FAMILY ZEESHANBERRY, COUNT 9 CARE ALEKSANDR T COMPLETE ASSOCIATE AUTO&AUTO S DIFRNTL WBC APPL 20853 SH[facility] SILVA MODALITY 9 [facility] 1/> AREAS INC INC ELEC STIMJ UNATTENDE D PHYSICAL 42725 SHIRA SILVA THERAPY 9 [facility] EVALUATIO INC INC N BLOOD 78399 FAMILY YAJAIRA, COUNT 9 CARE R NII COMPLETE ASSOCIATE AUTO&AUTO S DIFRNTL WBC INITIAL 26910 [facility] 9 Y Y ON HOSPITAL HOSPITAL CARE/DAY 30 MINUTES INJECTION J2997 [facility] 9 Y [facility] RECOMBINA NT 1 MG INJECTION J3010 [facility] FENTANYL 9 Y Y [facility] 0.1 MG EXCISION 88156 MATEO AVIMOI, RADIAL 9 MEDICAL [facility] HEAD SERV FOUNDATIO RAD RESCJ 35108 MATEO LEVY, CAPSL 9 [facility] TISS&HTRT SERV PC BONE FOUNDATIO ELBW CONTRCT UNCLASSIF J3490 [facility] IED DRUGS 9 Y [facility] ANESTHESI 44049 MATEO MELI, Reid 9 MEDICAL JULIETTE C OPEN/SURG SERVICES ARTHRS RADICAL PROC ELBOW INJECTION J2270 [facility] MORPHINE 9 Y Y [facility] UP TO 10 MG INJECTION J2405 [facility] 9 [facility] PER 1 MG ARTHROSCO 19461 [facility] PY ELBOW 9 Y Y SURGICAL [facility] SYNOVECTO MY COMPLETE UNLISTED 61595 [facility] PROCEDURE 9 [facility] [place] [address] [facility] SURG 9 Y Y PATHOLOGY [facility] GROSS&SONU ROSCOPIC EXAM DECALCIFI 84808 [facility] CATION 9 Y Y [facility]URE [facility] INJECTION J2175 [facility] 9 Y Y MEPERIDIN [facility] E HCL PER 100 MG INJECTION J2795 [facility] 9 Y Y [facility] NE HYDROCHLO RIDE 1 MG BLOOD 66706 [facility] ALLIANCE UNIVERS COUNT 9 Y [facility]PLETE [facility] AUTO&AUTO DIFRNTL WBC RADIOLOGI 80820 [facility] C EXAM 9 Y Y CHEST 2 [facility] FRONTAL&L ATERAL INSJ PRPH 18571 [facility] CVC W/O 9 Y Y SUBQ H[facility] HOSPITAL PORT/PAPER SORTER AND COUNTER AGE 6 YR/> FACTOR 63910 [facility] INHIBITOR 9 Y Y TEST [facility] RADEX 07105 [place] MATHIAS, ELBOW 2 9 MEDICAL HITESH N VIEWS SERV FOUNDATIO BLOOD 88105 Heidi REDD COUNT 9 CARE G COMPLETE ASSOCIATE AUTO&AUTO S DIFRNTL WBC THERAPEUT 35579 SHIRA SILVA IC PX 1/> 9 [facility] AREAS INC INC EACH 15 MIN EXERCISES APPL 18403 SHIRA SILVA MODALITY 9 [facility] 1/> AREAS INC INC IONTOPHOR ESIS EA 15 MIN APPL 38186 SHIRA HEARDON MODALITY 9 [facility] 1/> AREAS INC INC ULTRASOUN D EA 15 MIN APPL 30113 SHIRA HEARDON MODALITY 9 [facility] 1/> AREAS INC INC ULTRASOUN D EA 15 MIN MANUAL 96600 [facility] TQS 1/> INC INC REGIONS EACH 15 MINUTES APPL 13919 [facility] MODALITY 9 [facility] 1/> AREAS INC INC IONTOPHOR ESIS EA 15 MIN PHYSICAL 67892 [facility] EVALUATIO INC INC N THERAPEUT 59340 SH[facility] SILVA IC PX 1/> 9 [facility] AREAS INC INC EACH 15 MIN EXERCISES RADIOLOGI 11243 Giselle RILEY 9 MEDICAL SERENITY N EXAMINATI SERV ON KNEE 3 FOUNDATIO VIEWS RADIOLOGI 50921 Giselle RILEY MEDICAL SERENITY N EXAMINATI SERV ON KNEE FOUNDATIO 1/2 VIEWS MRI ANY 05128 ROLANDO C SYL, JT LOWER 9 SYL ROLANDO EXTREM W/O CONTRAST MATRL COLLECTIO 39016 FAMILY MULBERRY, N 9 CARE ALEKSANDR T CAPILLARY ASSOCIATE BLOOD S SPECIMEN BLOOD 81116 FAMILY MULBERRY, COUNT 9 CARE ALEKSANDR T COMPLETE ASSOCIATE AUTO&AUTO S DIFRNTL WBC RADIOLOGI 35688 [facility] C 9 [facility] EXAMINATI INC INC ON KNEE 3 VIEWS BLOOD 21845 FAMILY MULBERRY, COUNT 9 CARE ALEKSANDR T COMPLETE ASSOCIATE AUTO&AUTO S DIFRNTL WBC COLLECTIO 92390 FAMILY MULBERRY, N 9 CARE ALEKSANDR T CAPILLARY ASSOCIATE BLOOD S SPECIMEN RADEX 50929 UNIVERSIT DIPTI, ELBOW 2 9 Y OF JENELLE A VIEWS [facility] APPL 89671 [facility] MODALITY 9 [facility] 1/> AREAS INC INC ELEC STIMJ UNATTENDE D THERAPEUT 60137 SH[facility]A SILVA IC PX 1/> 9 [facility] AREAS INC INC EACH 15 MIN EXERCISES APPLICATI 73612 [facility] ON 9 [facility] MODALITY INC INC 1/> AREAS HOT/COLD PACKS APPLICATI 04271 [facility] ON [facility] MODALITY INC INC 1/> AREAS HOT/COLD PACKS THERAPEUT 95207 SH[facility]A SILVA IC PX /> 9 [facility] AREAS INC INC EACH 15 MIN EXERCISES APPL 41201 [facility]ALITY [facility] 1/> AREAS INC INC ELEC STIMJ UNATTENDE D URNLS DIP 11336 FAMILY YAJAIRA, 9 CARE R NII STICK/TAB ASSOCIATE LET RGNT S NON-AUTO W/O MICRSCP CULTURE 93971 COMBINED COMBINED BACTERIAL 9 PHYSICIAN PHYSICIAN S LAB S LAB QUANTTATI VE COLONY COUNT URINE URNLS DIP 42771 FAMILY YAJAIRA, 9 CARE R NII STICK/TAB ASSOCIATE LET RGNT S NON-AUTO W/O MICRSCP APPL 85041 [facility]ALITY [facility] 1/> AREAS INC INC ELEC STIMJ UNATTENDE D THERAPEUT 61929 SH[facility] SILVA IC PX /> 9 [facility] AREAS INC INC EACH 15 MIN EXERCISES APPLICATI 51369 [facility] S[facility]VA ON 9 [facility] MODALITY INC INC 1/> AREAS HOT/COLD PACKS MANUAL 06401 [facility] TH[facility]APY 9 [facility] TQS 1/> INC INC REGIONS EACH 15 MINUTES THERAPEUT 27974 SHIRA SILVA IC PX 1/> 9 [facility] AREAS INC INC EACH 15 MIN EXERCISES THERAPEUT 51614 SH[facility]A SILVA IC PX 1/> 9 [facility] AREAS INC INC EACH 15 MIN EXERCISES APPL 20948 [facility] S[facility]VA MODALITY 9 [facility] 1/> AREAS INC INC ELEC STIMJ UNATTENDE D MANUAL 70800 [facility]VA TH[facility]APY 9 [facility] TQS 1/> INC INC REGIONS EACH 15 MINUTES APPLICATI 25891 [facility]VA ON 9 [facility] MODALITY INC INC 1/> AREAS HOT/COLD PACKS MANUAL 26190 SH[facility] THERAPY 9 [facility] TQS 1/> INC INC REGIONS EACH 15 MINUTES THERAPEUT 40456 SHIRA HEARDON IC PX /> 9 [facility] AREAS INC INC EACH 15 MIN EXERCISES THERAPEUT 93733 SH[facility]A HEARDON IC PX /> 9 [facility] AREAS INC INC EACH 15 MIN EXERCISES PHYSICAL 94981 SH[facility]APY [facility] EVALUATIO INC INC N ANKLE L1930 PROSTHETI PROSTHETI FOOT 8 C&ORTHOTI C&ORTHOTI ORTHOTIC C C PLASTIC/O ASSOCIATE ASSOCIATE [facility] PREFAB RADEX 72502 [place] ABDIRASHID, ANKLE 8 MEDICAL REJI K COMPLETE SERV MINIMUM 3 FOUNDATIO VIEWS HOSPITAL 76553 [facility], DISCHARGE 8 MEDICAL ANDRES DAY SERV MANAGEMEN FOUNDATIO T 30 MIN/< CT PELVIS 20556 [facility], 8 MEDICAL MIKEY W/CONTRAS SERV T FOUNDATIO MATERIAL INITIAL 51605 [place] O[place] INPATIENT 8 MEDICAL , JANAE CONSULT SERV R NEW/ESTAB [place] [address] [place] [address] [facility], ABDOMEN 8 MEDICAL MIKEY W/CONTRAS SERV T FOUNDATIO MATERIAL SBSQ 64056 [facility] 8 [facility] SERV 25 FOUNDATIO MINUTES INFUSION [address] [place] [address] Y [facility] INITIAL 46684 [facility] 8 [facility] C[facility]/DAY SERV 70 FOUNDATIO MINUTES BLOOD 53603 FAMILY YAJAIRA, COUNT 8 CARE R NII COMPLETE ASSOCIATE AUTO&AUTO S DIFRNTL WBC CT PELVIS 69987 FANY MANJARREZ, 8 MEDICAL VILMA P W/CONTRAS IMAGING T ASSOCIATE MATERIAL S 3D 78870 FANY MANJARREZ, RENDERING 8 MEDICAL VILMA P IMAGING W/INTERP& [place]OCI[place] [address] FANY MANJARREZ, ABDOMEN 8 MEDICAL VILMA P W/CONTRAS IMAGING T ASSOCIATE MATERIAL S BLOOD 17172 FAMILY OCONNOR, COUNT 8 CARE ALEKSANDR T COMPLETE ASSOCIATE AUTO&AUTO S DIFRNTL WBC BLOOD 46667 FAMILY GONZALEZHeidi COUNT 8 CARE G COMPLETE ASSOCIATE AUTO&AUTO S DIFRNTL WBC THROMBOPL 31284 COMBINED COMBINED ASTIN 8 PHYSICIAN PHYSICIAN TIME S LAB S LAB PARTIAL PLASMA/WH OLE BLOOD PROTHROMB 71421 Heidi GONZALEZ IN TIME 8 CARE G ASSOCIATE S Encounters Encounter Start End Date Code Location Performer Type Date OFFICE 69555 FAMILY YAJAIRA OUTPATIEN 7 7 CARE T VISIT ASSOCIATE 15 S MINUTES OFFICE 96660 FAMILY WARE OUTPATIEN 7 7 CARE T VISIT ASSOCIATE 15 S MINUTES OFFICE 99153 FAMILY YAJAIRA OUTPATIEN 7 7 CARE T VISIT ASSOCIATE 15 S MINUTES OFFICE 38192 FAMILY ANASTASIA OUTPATIEN 6 6 CARE T VISIT ASSOCIATE 15 S MINUTES OFFICE 77737 FAMILY YAJAIRA OUTPATIEN 6 6 CARE T VISIT ASSOCIATE 15 S MINUTES EMERGENCY 87292 6 6 [facility] DEPARTMEN E T VISIT HOSPITALS HIGH/URGE NT SEVERITY EMERGENCY 82475 [facility] 6 6 MEDICAL DEPARTMEN SERV T VISIT FOUNDATIO LOW/MODER N SEVERITY HOSPITAL - 6 6 [facility] OUTPATIEN E T HOSPITALS OFFICE 25653 [facility] OUTPATIEN 6 6 PHYSICIAN WENDY T NEW 10 S GROUP MINUTES OFFICE 61872 FAMILY ISAMAR OUTPATIEN 6 6 CARE T VISIT ASSOCIATE 15 S MINUTES OFFICE 66907 FAMILY ISAMAR OUTPATIEN 6 6 CARE TAR T VISIT ASSOCIATE 15 S MINUTES OFFICE 03519 FAMILY ISAMAR OUTPATIEN 6 6 CARE TAR T VISIT ASSOCIATE 15 S MINUTES OFFICE 60618 FAMILY CROWDY OUTPATIEN 6 6 CARE CRI T VISIT ASSOCIATE 15 S MINUTES OFFICE 73633 FAMILY MULBERRY OUTPATIEN 6 6 CARE NEW T VISIT ASSOCIATE 15 S MINUTES OFFICE 48120 FAMILY ISAMAR OUTPATIEN 6 6 CARE TAR T VISIT ASSOCIATE 15 S MINUTES OFFICE 36552 FAMILY LISA OUTPATIEN 6 6 CARE PAUL T VISIT ASSOCIATE 15 S MINUTES OFFICE 06370 FAMILY ISAMAR OUTPATIEN 6 6 CARE TAR T VISIT ASSOCIATE 15 S MINUTES OFFICE 68153 FAMILY LISA OUTPATIEN 6 6 CARE PAUL T VISIT ASSOCIATE 15 S MINUTES OFFICE 30669 FAMILY LISA OUTPATIEN 6 6 CARE PAUL T VISIT ASSOCIATE 15 S MINUTES [facility]OSP[facility] [place] ECKERLINE 6 6 MEDICAL JR ROSE DEPARTMEN SERV T VISIT FOUNDATIO MODERATE N SEVERITY OFFICE 43000 FAMILY YAJAIRA OUTPATIEN 6 6 CARE R H T VISIT ASSOCIATE 15 S MINUTES EMERGENCY 60461 YAYA PAZ 6 6 PHYSICIAN U NAM DEPARTMEN S, PLLC T VISIT MODERATE SEVERITY OFFICE 87961 FAMILY ISAMAR OUTPATIEN 6 6 CARE TAR T VISIT ASSOCIATE 15 S MINUTES OFFICE 17756 FAMILY LISA OUTPATIEN 6 6 CARE PAUL T VISIT ASSOCIATE 10 S MINUTES HOSPITAL [facility] - 6 6 [facility] SH[facility] - 6 6 [facility] SH[facility] - 6 6 [facility] OFFICE 84229 FAMILY LISA OUTPATIEN 6 6 CARE PAUL T VISIT ASSOCIATE 15 S MINUTES HOSPITAL SH[facility]A - 6 6 [facility] SH[facility] - 6 6 [facility] 6 6 [facility] - 6 6 [facility] - 6 6 [facility] OFFICE 50657 FAMILY LISA OUTPATIEN 6 6 CARE PAUL T VISIT ASSOCIATE 15 S MINUTES [facility] 6 6 [facility] 58713 YAYA PAZ 6 6 PHYSICIAN Julita [facility]PART[facility] S, [facility] T VISIT HIGH/URGE NT SEVERITY OFFICE 76390 FAMILY LISA OUTPATIEN 6 6 CARE PAUL T VISIT ASSOCIATE 15 S MINUTES EMERGENCY 04488 YAYA MARTINEZ 6 6 PHYSICIAN JR [facility], [facility] T VISIT HIGH/URGE NT SEVERITY OFFICE 87379 FAMILY YAJAIRA OUTPATIEN 6 6 CARE R H T VISIT ASSOCIATE 15 S MINUTES OFFICE 21677 FAMILY CROWDY OUTPATIEN 6 6 CARE CRI T VISIT ASSOCIATE 15 S MINUTES OFFICE 79319 FAMILY CROWDY OUTPATIEN 6 6 CARE CRI T VISIT ASSOCIATE 15 S MINUTES OFFICE 60139 FAMILY YAJAIRA OUTPATIEN 6 6 CARE R H T VISIT ASSOCIATE 15 S MINUTES OFFICE 45805 FAMILY CROWDY OUTPATIEN 6 6 CARE CRI T VISIT ASSOCIATE 15 S MINUTES OFFICE 15541 FAMILY LISA OUTPATIEN 5 5 CARE PAUL T VISIT ASSOCIATE 15 S MINUTES OFFICE 00293 FAMILY CROWDY OUTPATIEN 5 5 CARE CRI T VISIT ASSOCIATE 15 S MINUTES OFFICE 44225 FAMILY YAJAIRA OUTPATIEN 5 5 CARE R H T VISIT ASSOCIATE 15 S MINUTES OFFICE 62835 FAMILY CROWDY OUTPATIEN 5 5 CARE CRI T VISIT ASSOCIATE 15 S MINUTES OFFICE 34920 FAMILY CROWDY OUTPATIEN 5 5 CARE CRI T VISIT ASSOCIATE 15 S MINUTES OFFICE 86654 [facility] OUTPATIEN 5 5 PHYSICIAN JAM T VISIT S GROUP 15 MINUTES OFFICE 51107 [facility] OUTPATIEN 5 5 PHYSICIAN JAM T NEW 20 S GROUP MINUTES EMERGENCY 15079 [facility] 5 5 [facility] DEPARTMEN INC T VISIT MODERATE SEVERITY HOSPITAL [facility] - 5 5 [facility] OUTPATIEN INC T OFFICE 03197 FAMILY LISA OUTPATIEN 5 5 CARE PAUL T VISIT ASSOCIATE 25 S MINUTES OFFICE 97201 FAMILY YAJAIRA OUTPATIEN 5 5 CARE R H T VISIT ASSOCIATE 15 S MINUTES OFFICE 85346 UNIVERSIT OUTPATIEN 5 5 Y T VISIT HOSPITAL 10 MINUTES HOSPITAL UNIVERSIT - 5 5 Y OUTPATIEN HOSPITAL T OFFICE 53102 [place] MICHOACANO OUTPATIEN 5 5 MEDICAL ALLEN T VISIT SERV 25 FOUNDATIO MINUTES N OFFICE 99544 FAMILY YAJAIRA OUTPATIEN 5 5 CARE R H T VISIT ASSOCIATE 15 S MINUTES OFFICE 02136 FAMILY CROWDY OUTPATIEN 5 5 CARE CRI T VISIT ASSOCIATE 15 S MINUTES OFFICE 10493 FAMILY LISA J OUTPATIEN 5 5 CARE G T VISIT ASSOCIATE 15 S MINUTES HOSPITAL [facility]A - 5 5 [facility] OUTPATIEN INC T EMERGENCY 83799 [facility] 5 5 [facility] T VISIT MODERATE SEVERITY EMERGENCY 01308 [facility] 5 5 [facility] T VISIT P LOW/MODER SEVERITY OFFICE 56735 FAMILY MULBERRY OUTPATIEN 4 4 CARE NEW T VISIT ASSOCIATE 15 S MINUTES OFFICE 02756 FAMILY YAJAIRA OUTPATIEN 4 4 CARE R H T VISIT ASSOCIATE 15 S MINUTES OFFICE 99902 FAMILY MULBERRY OUTPATIEN 4 4 CARE NEW T VISIT ASSOCIATE 15 S MINUTES OFFICE 99284 FAMILY OUTPATIEN 4 4 CARE T VISIT ASSOCIATE 15 S MINUTES OFFICE 88774 FAMILY YAJAIRA OUTPATIEN 4 4 CARE R H T VISIT ASSOCIATE 15 S MINUTES OFFICE 98964 LISA J OUTPATIEN 4 4 G T VISIT 15 MINUTES OFFICE 00850 MULBERRY MULBERRY OUTPATIEN 4 4 NEW NEW T VISIT 15 MINUTES OFFICE 96614 ABDULAZIZ CINTRON OUTPATIEN 4 4 ERIC ERIC T VISIT 15 MINUTES OFFICE 40574 MULBERRY MULBERRY OUTPATIEN 4 4 NEW NEW T VISIT 15 MINUTES OFFICE 95207 LISA GONZALEZ J OUTPATIEN 4 4 G G T VISIT 15 MINUTES HOSPITAL [facility] - 4 4 [facility] OUTPATIEN INC T OFFICE 30097 FAMILY OUTPATIEN 3 3 CARE T VISIT ASSOCIATE 15 S MINUTES OFFICE 84703 MULBERRY MULBERRY OUTPATIEN 3 3 NEW NEW T VISIT 15 MINUTES OFFICE 69084 FAMILY LISA OUTPATIEN 3 3 CARE PAUL T VISIT ASSOCIATE 15 S MINUTES OFFICE 51136 [place] ROM[place] OUTPATIEN 3 3 MEDICAL EDW T VISIT SERV 25 FOUNDATIO MINUTES N OFFICE 95264 YAJAIRA YAJAIRA OUTPATIEN 3 3 R H R H T VISIT 15 MINUTES OFFICE 70242 ABDULAZIZ CINTRON OUTPATIEN 3 3 ERIC ERIC T VISIT 15 MINUTES OFFICE 51386 KMSF ABDULAZIZ OUTPATIEN 3 3 NURSE ERIC T VISIT PRACTITIO 15 NER GR MINUTES HOSPITAL UNIVERSIT - 3 3 Y [facility] T OFFICE 80358 LISA Gordon OUTPATIEN 3 3 G G T VISIT 10 MINUTES HOSPITAL SHIAR - 3 3 [facility] OUTPATIEN [facility] T OFFICE 77015 LISA Gordon OUTPATIEN 3 3 G G T VISIT 15 MINUTES HOSPITAL SHIRA - 3 3 [facility] OUTPATIEN [facility] T OFFICE 79765 ABDULAZIZ CINTRON OUTPATIEN 3 3 ERIC ERIC T VISIT 15 MINUTES OFFICE 55541 MULBERRY MULBERRY OUTPATIEN 3 3 NEW NEW T VISIT 15 MINUTES OFFICE 20302 SHIRA SILVA OUTPATIEN 2 2 [facility] T VISIT CENTER CENTER 10 [facility]ES [facility] 2 2 Y [facility] SHIRA - 2 2 [facility] OUTPATIEN INC T EMERGENCY 71756 MATEO [place] 2 2 MEDICAL NEW DEPARTMEN SERV T VISIT FOUNDATIO MODERATE SEVERITY EMERGENCY 82498 UNIVERSIT DEPT 2 2 Y VISIT HOSPITAL HIGH SEVERITY& THREAT [facility] UNIVERSIT - 2 2 Y [facility] SHIRA - 2 2 [facility] OUTPATIEN INC T OFFICE 93376 ABDULAZIZ CINTRON OUTPATIEN 2 2 ERIC ERIC T VISIT 15 MINUTES HOSPITAL UNIVERSIT - 2 2 Y [facility] T OFFICE 83139 BRENDA FREEMANGH CONSULTAT 2 2 LUCIAN LUCIAN ION NEW/ESTAB PATIENT 40 MIN OFFICE 90681 CAM LEVY OUTPATIEN 2 2 SRI SRI T VISIT 25 MINUTES HOSPITAL UNIVERSIT - 2 2 Y [facility] T OFFICE 22307 FAMILY OUTPATIEN 2 2 CARE T VISIT ASSOCIATE 15 S MINUTES OFFICE 03671 ABDULAZIZ CINTRON OUTPATIEN 2 2 ERIC ERIC T VISIT 15 MINUTES OFFICE 45607 WARE WARE OUTPATIEN 2 2 KATIUSKA KATIUSKA T VISIT 15 MINUTES OFFICE 12620 LISA Gordon OUTPATIEN 2 2 T VISIT 15 MINUTES HOSPITAL SHIRA - 2 2 [facility] OUTPATIEN INC T OFFICE 75182 LISA Gordon OUTPATIEN 2 2 T VISIT 15 MINUTES OFFICE 51299 CHAZ WARE OUTPATIEN 2 2 KATIUSKA KATIUSKA T VISIT 15 MINUTES HOSPITAL SHIRA - 2 2 [facility] OUTPATIEN INC T EMERGENCY 04018 SHIRA 2 2 [facility] DEPARTMEN INC T VISIT MODERATE SEVERITY OFFICE 87270 FAMILY WARE OUTPATIEN 2 2 CARE KATIUSKA T VISIT ASSOCIATE 15 S MINUTES HOSPITAL SHIRA - 1 1 [facility] OUTPATIEN INC T OFFICE 12793 ABDULAZIZ CINTRON OUTPATIEN 1 1 ERIC ERIC T VISIT 15 MINUTES OFFICE 14306 MARINE HAWTHORNE OUTPATIEN 1 1 YESI YESI T NEW 30 MINUTES OFFICE 93778 FAMILY MULBERRY OUTPATIEN 1 1 CARE NEW T VISIT ASSOCIATE 15 S MINUTES OFFICE 38974 FAMILY ZEESHANBERRY OUTPATIEN 1 1 CARE NEW T VISIT ASSOCIATE 15 S MINUTES HOSPITAL [facility] - 1 1 [facility] OUTPATIEN INC T OFFICE 69723 FAMILY ZEESHANBERRY OUTPATIEN 1 1 CARE NEW T VISIT ASSOCIATE 15 S MINUTES OFFICE 47442 FAMILY YAJAIRA OUTPATIEN 1 1 CARE R H T VISIT ASSOCIATE 15 S MINUTES OFFICE 47451 FAMILY YAJAIRA OUTPATIEN 1 1 CARE R H T VISIT ASSOCIATE 15 S MINUTES OFFICE 74292 FAMILY LISA Gordon OUTPATIEN 1 1 CARE T VISIT ASSOCIATE 15 S MINUTES OFFICE 31742 ABEBESMauricio CINTRON OUTPATIEN 1 1 NURSE ERIC T VISIT PRACTITIO 15 NER GR MINUTES OFFICE 58108 FAMILY ANASTASIA OUTPATIEN 1 1 CARE NEW T VISIT ASSOCIATE 25 S MINUTES OFFICE 13553 MATEO RÍOS OUTPATIEN 1 1 MEDICAL ALLEN T VISIT SERV 15 FOUNDATIO MINUTES HOSPITAL SHIRA - 0 0 [facility] OUTPATIEN INC T OFFICE 68951 FAMILY LISA Gordon OUTPATIEN 0 0 CARE T VISIT ASSOCIATE 15 S MINUTES OFFICE 81465 FAMILY YAJAIRA OUTPATIEN 0 0 CARE R H T VISIT ASSOCIATE 15 S MINUTES OFFICE 68824 FAMILY ZEESHANBERRY OUTPATIEN 0 0 CARE NEW T VISIT ASSOCIATE 15 S MINUTES HOSPITAL UNIVERSIT - 0 0 Y INPATIENT HOSPITAL OFFICE 31586 FAMILY GONZALEZ J OUTPATIEN 0 0 CARE T VISIT ASSOCIATE 15 S MINUTES OFFICE 36032 MATEO RÍOS OUTPATIEN 0 0 MEDICAL ALLEN T VISIT SERV 10 FOUNDATIO MINUTES OFFICE 90845 FAMILY ANASTASIA OUTPATIEN 0 0 CARE NEW T VISIT ASSOCIATE 15 S [facility]UTES [facility] JOHN CINTRON OUTPATIEN 0 0 NURSE JOSÉ Stephens T VISIT PRACTITIO 15 NER GROUP MINUTES OFFICE 28813 Heidi GONZALEZ OUTPATIEN 0 0 CARE G T VISIT ASSOCIATE 15 S MINUTES OFFICE 19338 FAMILY GATES, OUTPATIEN 0 0 CARE R NII T VISIT ASSOCIATE 15 S MINUTES OFFICE 08142 JOHN CINTRON OUTPATIEN 0 0 NURSE JOSÉ Stephens T VISIT PRACTITIO 15 NER GROUP MINUTES OFFICE 20239 FAMILY GATES, OUTPATIEN 0 0 CARE R NII T VISIT ASSOCIATE 15 S MINUTES OFFICE 66914 FAMILY OCONNOR, OUTPATIEN 0 0 CARE ALEKSANDR T T VISIT ASSOCIATE 15 S MINUTES OFFICE 71088 Heidi GONZALEZ OUTPATIEN 0 0 CARE G T VISIT ASSOCIATE 15 S MINUTES OFFICE 08242 MATEO GLORIAKAYLEEN, OUTPATIEN 0 0 MEDICAL EDWARD T VISIT SERV 15 FOUNDATIO MINUTES OFFICE 06520 FAMILY GATES, OUTPATIEN 0 0 CARE R NII T VISIT ASSOCIATE 15 S MINUTES HOSPITAL UN[facility]ERSIT - 0 0 Y [facility] T OFFICE 60660 FAMILY CARSONT, OUTPATIEN 9 9 CARE R NII T VISIT ASSOCIATE 15 S MINUTES [facility] - 9 9 [facility] - 9 9 [facility] OFFICE 81332 FAMILY OCONNOR, OUTPATIEN 9 9 CARE ALEKSANDR T T VISIT ASSOCIATE 15 S MINUTES OFFICE 33649 FAMILY GATES, OUTPATIEN 9 9 CARE R NII T VISIT ASSOCIATE 15 S MINUTES OFFICE 59349 ABEBEDreaMauricio CINTRON OUTPATIEN 9 9 NURSE JOSÉ Stephens T VISIT PRACTITIO 10 NER GROUP MINUTES OFFICE 63371 FAMILY OCONNOR OUTPATIEN 9 9 CARE ALEKSANDR T T VISIT ASSOCIATE 15 S MINUTES HOSPITAL [facility] - 9 9 [facility] OUTPATIEN INC T OFFICE 38143 FARMDALE OUTPATIEN 9 9 [facility] T VISIT INC 10 MINUTES HOME [facility], 9 9 HOME [facility] - 9 9 Y [facility] T HOME [facility], 9 9 HOME [facility] T [facility] UNIVERSIT [facility] 9 9 Y [facility] T OFFICE 95181 MATEO CAM OUTPATIEN 9 9 MEDICAL BIMAL T VISIT SERV 15 FOUNDATIO MINUTES [facility] 9 9 Y [facility] T OFFICE 82408 Heidi REDD OUTPATIEN 9 9 CARE G T VISIT ASSOCIATE 15 S MINUTES OFFICE 36728 FAMILY GATES, OUTPATIEN 9 9 CARE R NII T VISIT ASSOCIATE 15 S MINUTES OFFICE 37681 MATEO ANNY OUTPATIEN 9 9 MEDICAL EDWARD T VISIT SERV 15 FOUNDATIO MINUTES HOSPITAL [facility] - 9 9 [facility] OUTPATIEN INC T OFFICE 42331 [place] KACI, CONSULTAT 9 9 MEDICAL JULIETTE T ION SERV NEW/ESTAB FOUNDATIO PATIENT 40 MIN OFFICE 36012 FAMILY YAJAIRA OUTPATIEN 9 9 CARE R NII T VISIT ASSOCIATE 15 S MINUTES OFFICE 21598 FAMILY MULBERRY, OUTPATIEN 9 9 CARE ALEKSANDR T T VISIT ASSOCIATE 15 S MINUTES OFFICE 88617 FAMILY YAJAIRA, OUTPATIEN 9 9 CARE R NII T VISIT ASSOCIATE 15 S MINUTES HOSPITAL [facility] - 9 9 [facility] OUTPATIEN INC T OFFICE 26937 FAMILY MULBERRY, OUTPATIEN 9 9 CARE ALEKSANDR T T VISIT ASSOCIATE 15 S MINUTES OFFICE 88366 FAMILY MULBERRY, OUTPATIEN 9 9 CARE ALEKSANDR T T VISIT ASSOCIATE 15 S MINUTES [facility] 29085 ABEBESMauricio ESTRADAON, OUTPATIEN 9 9 NURSE JOSÉ Stephens T VISIT PRACTITIO 10 NER GROUP MINUTES HOSPITAL [facility] - 9 9 [facility] OUTPATIEN INC T OFFICE 40592 FAMILY YAJAIRA, OUTPATIEN 9 9 CARE R NII T VISIT ASSOCIATE 15 S MINUTES OFFICE 66677 FAMILY YAJAIRA, OUTPATIEN 9 9 CARE R NII T VISIT ASSOCIATE 15 S MINUTES OFFICE 16792 FAMILY YAJAIRA, OUTPATIEN 9 9 CARE R NII T VISIT ASSOCIATE 15 S MINUTES HOSPITAL [facility] - 9 9 [facility] OUTPATIEN INC T OFFICE 67306 FAMILY YAJIARA, OUTPATIEN 9 9 CARE R NII T VISIT ASSOCIATE 15 S MINUTES OFFICE 41436 MATEO MCCORMICK, OUTPATIEN 9 9 MEDICAL EDWARD T VISIT SERV 15 FOUNDATIO MINUTES OFFICE 42130 FAMILY YAJAIRA, OUTPATIEN 9 9 CARE R NII T VISIT ASSOCIATE 15 S MINUTES OFFICE 64127 FAMILY YAJAIRA, OUTPATIEN 8 8 CARE R NII T VISIT ASSOCIATE 10 S MINUTES OFFICE 83785 MATEO RÍOS OUTPATIEN 8 8 MEDICAL ELENA J T VISIT SERV 10 FOUNDATIO MINUTES OFFICE 92512 FAMILY GATES OUTPATIEN 8 8 CARE R NII T VISIT ASSOCIATE 15 S MINUTES OFFICE 31872 MATEO CASTROKAYLEEN OUTPATIEN 8 8 MEDICAL EDWARD T VISIT SERV 15 FOUNDATIO MINUTES HOSPITAL UNIVERSIT - 8 8 Y OUTPATIEN HOSPITAL T OFFICE 53438 MATEO RÍOS OUTPATIEN 8 8 MEDICAL ELENA J T VISIT SERV 15 FOUNDATIO MINUTES HOSPITAL UNIVERSIT - 8 8 Y INPATIENT HOSPITAL OFFICE 01741 FAMILY CARSONDenise BRIPATIEN 8 8 CARE R NII T VISIT ASSOCIATE 15 S MINUTES HOSPITAL [facility] - 8 8 [facility] 94020 FAMILY OCONNOR BRIPATIEN 8 8 CARE ALEKSANDR T T VISIT ASSOCIATE 15 S MINUTES OFFICE 80464 ANASTASIA OUTPATIEN 8 8 CARE ALEKSANDR T T VISIT ASSOCIATE 15 S MINUTES OFFICE 56079 FAMILY GONZALEZHeidi OUTPATIEN 8 8 CARE G T VISIT ASSOCIATE 15 S MINUTES OFFICE 45949 YAJAIRA BRIPATIEN 8 8 CARE R NII T VISIT ASSOCIATE 15 S MINUTES OFFICE 22377 MATEO ANNY BRIPATIPATRICA 8 8 MEDICAL EDWARD T VISIT SERV 15 FOUNDATIO MINUTES
--- OUTSIDE RECORDS SUMMARY | 2017-04-05 10:31 | External Medical Summary Rpt ---
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 BIORX FOR MAINT 3 NON-INS RX INFUS CATH PER WK BLOOD 45411 MULBERRY MULBERRY COUNT 3 NEW NEW COMPLETE AUTO&AUTO DIFRNTL WBC SUPPLIES A4221 BIORX BIORX FOR MAINT 2 NON-INS RX INFUS CATH PER WK INJ AHF/ J7186 BIORX BIORX VWF CMPLX 2 PER FACTOR VIII IU INJ AHF/ J7186 BIORX BIORX VWF CMPLX 2 PER FACTOR VIII IU RADEX 45477 [place] CHEPE ELBOW 2 MEDICAL AMBROSIO COMPLETE SERV MINIMUM 3 FOUNDATIO VIEWS N IIV3 58949 SHIRA SILVA VACCINE 2 [facility] VIRUS 0.5 ML DOSAGE IM USE E-STIM G0283 SHIRA SILVA 1/> AREAS 2 [facility] OTH THAN INC INC WND CARE PART TX PLAN APPL 53984 SHIRA SILVA MODALITY 2 [facility] 1/> AREAS INC INC ULTRASOUN D EA 15 MIN APPLICATI 03091 SHIRA SILVA ON 2 [facility] MODALITY INC INC 1/> AREAS HOT/COLD PACKS MANUAL 75023 SHIRA SILVA THERAPY 2 [facility] TQS 1/> INC INC REGIONS EACH 15 MINUTES INJ AHF/ J7186 BIORX BIORX VWF CMPLX 2 PER FACTOR VIII IU APPL 23449 SHIRA SILVA MODALITY 2 [facility] 1/> AREAS INC INC ULTRASOUN D EA 15 MIN APPLICATI 27568 SHIRA SILVA ON 2 [facility] MODALITY INC INC 1/> AREAS HOT/COLD PACKS E-STIM G0283 SHIRA SILVA 1/> AREAS 2 [facility] OTH THAN INC INC WND CARE PART TX PLAN MANUAL 16155 SHIRA SILVA THERAPY 2 [facility] TQS 1/> INC INC REGIONS EACH 15 MINUTES INJ AHF/ J7186 BIORX BIORX VWF CMPLX 2 PER FACTOR VIII IU MANUAL 12056 SHIRA SILVA THERAPY 2 [facility] TQS 1/> INC INC REGIONS EACH 15 MINUTES APPL 94021 SHIRA SILVA MODALITY 2 [facility] 1/> AREAS INC INC ULTRASOUN D EA 15 MIN APPLICATI 51903 SHIRA SILVA ON 2 [facility] MODALITY INC INC 1/> AREAS HOT/COLD PACKS E-STIM G0283 SHIRA SILVA 1/> AREAS 2 [facility] OTH THAN INC INC WND CARE PART TX PLAN E-STIM G0283 SHIRA SILVA 1/> AREAS 2 [facility] OTH THAN INC INC WND CARE PART TX PLAN APPL 46130 SHIRA SILVA MODALITY 2 [facility] 1/> AREAS INC INC ULTRASOUN D EA 15 MIN MANUAL 18918 SHIRA SILVA THERAPY 2 [facility] TQS 1/> INC INC REGIONS EACH 15 MINUTES APPLICATI 49936 SHIRA SILVA ON 2 [facility] MODALITY INC INC 1/> AREAS HOT/COLD PACKS APPLICATI 95353 SHIRA SILVA ON 2 [facility] MODALITY INC INC 1/> AREAS HOT/COLD PACKS MANUAL 58308 SHIRA SILVA THERAPY 2 [facility] TQS 1/> INC INC REGIONS EACH 15 MINUTES APPL 18088 SHIRA SILVA MODALITY 2 [facility] 1/> AREAS INC INC ULTRASOUN D EA 15 MIN E-STIM G0283 SHIRA SILVA 1/> AREAS 2 [facility] OTH THAN INC INC WND CARE PART TX PLAN E-STIM G0283 SHIRA SILVA 1/> AREAS 2 [facility] OTH THAN INC INC WND CARE PART TX PLAN THERAPEUT 85415 SHIRA SILVA IC PX 1/> 2 [facility] AREAS INC INC EACH 15 MIN EXERCISES APPL 30047 SHIRA SILVA MODALITY 2 [facility] 1/> AREAS INC INC ULTRASOUN D EA 15 MIN MANUAL 49170 SHIRA SILVA THERAPY 2 [facility] TQS 1/> INC INC REGIONS EACH 15 MINUTES APPLICATI 28183 SHIRA SILVA ON 2 [facility] MODALITY INC INC 1/> AREAS HOT/COLD PACKS INJ AHF/ J7186 BIORX BIORX VWF CMPLX 2 PER FACTOR VIII IU THROMBOPL 43694 [facility] ASTIN 2 Y Y TIME [facility] PARTIAL PLASMA/WH OLE BLOOD PROTHROMB 90396 [facility] IN TIME 2 Y Y [facility] SEDIMENTA 25569 [facility] TION RATE 2 Y Y RBC [facility] AUTOMATED BLOOD 07536 [facility] COUNT 2 Y Y COMPLETE [facility] AUTO&AUTO DIFRNTL WBC THERAPEUT 86020 [facility] IC 2 Y Y INJECTION [facility] IV PUSH EACH NEW DRUG INJECTION J2270 [facility] MORPHINE 2 Y Y SULFATE [facility] UP TO 10 MG C-REACTIV 45907 [facility] E PROTEIN 2 Y Y [facility] INJECTION J2405 [facility] 2 Y Y [facility] ON HCL PER 1 MG RADEX 14904 [place] MERHAR ELBOW 2 MEDICAL GAR COMPLETE SERV MINIMUM 3 FOUNDATIO VIEWS N COLLECTIO 63477 [facility] N VENOUS 2 Y Y BLOOD [facility] VENIPUNCT URE THER 24133 [facility] PROPH/DX 2 Y Y NJX IV [facility] PUSH SINGLE/1S T SBST/DRUG APPLICATI 40773 SHIRA SILVA ON 2 [facility] MODALITY INC INC 1/> AREAS HOT/COLD PACKS MANUAL 27674 SHIRA SILVA THERAPY 2 [facility] TQS 1/> INC INC REGIONS EACH 15 MINUTES PHYSICAL 98239 SHIRA SIVLA THERAPY 2 [facility] EVALUATIO INC INC N ARTHROSCO 02057 CAM LEVY PY ELBOW 2 SRI SRI SURGICAL SYNOVECTO MY COMPLETE ARTHROSCO 07645 [facility] PY ELBOW 2 Y Y [facility]ICAL [facility] HOSPITAL DEBRIDEME NT EXTENSIVE PARTIAL 33319 MENDYLEONORMOI AVINI EXCISION 2 SRI [facility] BONE OLECRANON PROCESS INJECTION J2250 [facility] 2 Y Y [facility] HCL PER 1 MG INJECTION J2270 [facility] MORPHINE 2 Y Y SULFATE [facility] UP TO 10 MG INJECTION J2405 [facility] 2 Y Y ONDANSETR [facility] ON HCL PER 1 MG INJECTION J1170 [facility] 2 Y Y HYDROMORP [facility] KADY UP TO 4 MG RINGERS J7120 [facility] LACTATE 2 Y Y INFUSION [facility] UP TO 1000 CC BLOOD 79381 [facility] COUNT 2 Y Y COMPLETE [facility] [place] [address] [facility] SURG 2 Y Y PATHOLOGY [facility] GROSS&SONU ROSCOPIC EXAM PROTHROMB 04221 [facility] IN TIME 2 Y Y HOSPITAL HOSPITAL ANESTHESI 67604 [place] RE[facility] A ELBOW 2 [facility]TH [place] ANESTHESI DIAGNOSTI A PSC C ARTHROSCO PIC THROMBOPL 05608 [facility] ASTIN 2 Y Y TIME HOSPITAL HOSPITAL PARTIAL PLASMA/WH OLE BLOOD INJECTION J3010 [facility] FENTANYL 2 Y Y CITRATE [facility] 0.1 MG INJECTION J2710 [facility] 2 Y Y NEOSTIGMI [facility] NE METHYLSUL FATE UP TO 0.5 MG UNCLASSIF J3490 [facility] IED DRUGS 2 Y Y HOSPITAL HOSPITAL ARTHRT 88161 CAM LEVY ELBOW 2 [facility] SRI CAPSULAR EXCISION CAPSULAR RLS SPX INJ AHF/ J7186 BIORX BIORX VWF CMPLX 2 PER FACTOR VIII IU INJ AHF/ J7186 BIORX BIORX VWF CMPLX 2 PER FACTOR VIII IU FACTOR J7190 BIORX BIORX VIII 2 ANTIHEMOP HILIC FACTOR HUMAN PER IU RADEX 50876 [place] CHEPE ELBOW 2 MEDICAL AMBROSIO COMPLETE SERV MINIMUM 3 FOUNDATIO VIEWS N INJ AHF/ J7186 BIORX BIORX VWF CMPLX 2 PER FACTOR VIII IU FACTOR J7190 BIORX BIORX VIII 2 ANTIHEMOP HILIC FACTOR HUMAN PER IU BLOOD 68294 CHAZ OSORIOOND COUNT 2 [place] COMPLETE AUTO&AUTO DIFRNTL WBC INJ AHF/ J7186 BIORX BIORX VWF CMPLX 2 PER FACTOR VIII IU BLOOD 93777 LISA Gordon COUNT 2 COMPLETE AUTO&AUTO DIFRNTL WBC RADIOLOGI 23411 SHIRA Desai EXAM 2 [facility] CHEST 2 INC INC VIEWS FRONTAL&L ATERAL TRANSFERA 93841 LISA Gordon HANA ANT SE 2 ASPARTATE AMINO AST SGOT TRANSFERA 76488 LISA Gordon SE 2 ALANINE AMINO ALT SGPT PROTHROMB 67975 LISA Gordon IN TIME 2 SUPPLIES A4221 [...] ANTIHEMOP HILIC FACTOR HUMAN PER IU CULTURE 29869 COMBINED COMBINED BACTERIAL 2 PHYSICIAN PHYSICIAN S LA S LA QUANTTATI VE COLONY COUNT URINE BLOOD 13828 CHAZ OSORIOOND COUNT 2 [place] COMPLETE AUTO&AUTO DIFRNTL WBC URNLS DIP 75052 CHAZ OSORIOOND 2 [place] STICK/TAB LET RGNT NON-AUTO W/O MICRSCP LOCM Q9967 SHIRA SILVA 300-399 2 [facility] MG/ML INC INC IODINE CONCENTRA TION PER ML COMPREHEN 15812 SHIRA SILVA SIVE 2 [facility] METABOLIC INC INC PANEL URNLS DIP 12897 SHIRA SILVA 2 [facility] STICK/TAB INC INC LET REAGENT AUTO MICROSCOP Y BLOOD 88066 SHIRA SILVA COUNT 2 [facility] COMPLETE INC INC AUTO&[place] [address] SYL SYL ABDOMEN & 2 MARA MARA PELVIS W/CONTRAS T MATERIAL THROMBOPL 15584 SHIRA SILVA ASTIN 2 [facility] TIME INC INC PARTIAL PLASMA/WH OLE BLOOD PROTHROMB 03662 SHIRA MAYAZEEM IN TIME 2 [facility] THO INC FACTOR J7190 BIORX BIORX VIII 2 ANTIHEMOP HILIC FACTOR HUMAN PER IU BLOOD 62544 FAMILY FAMILY COUNT 2 CARE CARE COMPLETE ASSOCIATE ASSOCIATE AUTO&AUTO S S DIFRNTL WBC FACTOR J7190 BIORX BIORX VIII 1 ANTIHEMOP HILIC FACTOR HUMAN PER IU ORTHOTIC 36219 SHIRA SILVA MGMT&DAREN 1 [facility] [place] UXTR INC INC LXTR&/TRN K EA 15 ANK FT L1906 ADVANCED ADVANCED ORTHOS 1 TECHNOLOG TECHNOLOG MX-LIG IES INC IES INC ANK SUPT PREFB OFF SHELF BLOOD 72402 FAMILY FAMILY COUNT 1 CARE CARE COMPLETE ASSOCIATE ASSOCIATE AUTO&AUTO S S DIFRNTL WBC BLOOD 99968 FAMILY FAMILY COUNT 1 CARE CARE COMPLETE ASSOCIATE ASSOCIATE AUTO&AUTO S S DIFRNTL WBC IAADIADOO 80450 FAMILY MULBERRY 1 CARE NEW STREPTOCO ASSOCIATE CCUS S GROUP A IAADIADOO 76296 FAMILY MULBERRY 1 CARE NEW STREPTOCO ASSOCIATE CCUS S GROUP A BLOOD 04562 FAMILY FAMILY COUNT 1 CARE CARE COMPLETE ASSOCIATE ASSOCIATE AUTO&AUTO S S DIFRNTL WBC BLOOD 81244 SHIRA SILVA OCCULT 1 [facility] PEROXIDAS INC INC E ACTV QUAL FECES 1-3 [place] [address] SHIRA SILVA CLOSTRIDI 1 [facility] [place] [address] SHIRA SILVA ROTAVIRUS 1 [facility] INC INC IAADIADOO 94137 FAMILY YAJAIRA 1 CARE R H STREPTOCO ASSOCIATE CCUS S GROUP A IAADIADOO 04159 FAMILY LISA J 1 CARE STREPTOCO ASSOCIATE CCUS S GROUP A RADIOLOGI 12283 SHIRA SILVA C EXAM 0 [facility] CHEST 2 INC INC VIEWS FRONTAL&L ATERAL BLOOD 95474 FAMILY MULBERRY COUNT 0 CARE NEW COMPLETE ASSOCIATE AUTO&AUTO S DIFRNTL WBC IAADIADOO 07857 FAMILY MULBERRY 0 CARE NEW STREPTOCO ASSOCIATE CCUS S GROUP A ARTHROSCO 72344 [place] MICHOACANO PY ANKLE 0 MEDICAL ALLEN SURGICAL SERV DEBRIDEME FOUNDATIO NT LIMITED ANESTHESI 61156 [place] YADIRA A 0 MEDICAL JOSH ARTHROSCO SERVICES PIC PROCEDURE ANKLE & FOOT OTH LOCAL 8087 [facility] 0 Y Y EXCISION/ [facility] DESTRUCTI ON LESION ANK JOINT IAADIADOO 67658 FAMILY LISA J 0 CARE STREPTOCO ASSOCIATE CCUS S GROUP A BLOOD 95013 FAMILY FAMILY COUNT 0 CARE CARE COMPLETE ASSOCIATE ASSOCIATE AUTO&AUTO S S DIFRNTL WBC RADEX 47228 [place] MANAS ANGELIQUE ANKLE 0 MEDICAL COMPLETE SERV MINIMUM 3 FOUNDATIO VIEWS 25 54957 LAB SHANI LAB SHANI HYDROXY 0 AMERIC AMERIC INCLUDES HOLDING HOLDING FRACTIONS IF PERFORMED THERAPEUT 03716 [facility] IC PX 1/> 0 Y Y [facility] EACH 15 MIN EXERCISES PHYSICAL 90626 [facility] 9 Y Y [facility] APPL 75890 SHIRA SILVA MODALITY 9 [facility] 1/> AREAS INC INC ELEC STIMJ UNATTENDE D THERAPEUT 59762 SHIRA SILVA IC PX 1/> 9 [facility] AREAS INC INC EACH 15 MIN EXERCISES APPLICATI 89246 SHIRA SILVA ON 9 [facility] MODALITY INC INC 1/> AREAS HOT/COLD PACKS APPL 99379 SHIRA SILVA MODALITY 9 [facility] 1/> AREAS INC INC ULTRASOUN D EA 15 MIN APPL 79707 SHIRA SILVA MODALITY 9 [facility] 1/> AREAS INC INC ULTRASOUN D EA 15 MIN APPLICATI 77618 SHIRA SILVA ON 9 [facility] MODALITY INC INC 1/> AREAS HOT/COLD PACKS THERAPEUT 25729 SHIRA SILVA IC PX 1/> 9 [facility] AREAS INC INC EACH 15 MIN EXERCISES APPL 88792 SHIRA SILVA MODALITY 9 [facility] 1/> AREAS INC INC ELEC STIMJ UNATTENDE D RADEX 81024 SHIRA SHIRA ELBOW 9 [facility] COMPLETE INC INC MINIMUM 3 VIEWS APPL 14075 SHIRA SILVA MODALITY 9 [facility] 1/> AREAS INC INC ELEC STIMJ UNATTENDE D THERAPEUT 93889 SHIRA SHIRA IC PX 1/> 9 [facility] AREAS INC INC EACH 15 MIN EXERCISES APPLICATI 05230 SHIRAROCKY SILVA ON 9 [facility] MODALITY INC INC 1/> AREAS HOT/COLD PACKS APPL 31391 SHIRA SILVA MODALITY 9 [facility] 1/> AREAS INC INC ULTRASOUN D EA 15 MIN APPL 19488 SHIRA SILVA MODALITY 9 [facility] 1/> AREAS INC INC ULTRASOUN D EA 15 MIN APPLICATI 02854 SHIRA SILVA ON 9 [facility] MODALITY INC INC 1/> AREAS HOT/COLD PACKS APPL 40132 SHIRA SILVA MODALITY 9 [facility] 1/> AREAS INC INC IONTOPHOR ESIS EA 15 MIN BLOOD 51027 FAMILY ZEESHANBERRY, COUNT 9 CARE ALEKSANDR T COMPLETE ASSOCIATE AUTO&AUTO S DIFRNTL WBC APPL 50785 SHIRA SILVA MODALITY 9 [facility] 1/> AREAS INC INC ELEC STIMJ UNATTENDE D PHYSICAL 63686 SHIRA SILVA THERAPY 9 [facility] EVALUATIO INC INC N BLOOD 38615 FAMILY YAJAIRA, COUNT 9 CARE R NII COMPLETE ASSOCIATE AUTO&AUTO S DIFRNTL WBC INITIAL 54899 [facility] 9 Y Y ON HOSPITAL HOSPITAL CARE/DAY 30 MINUTES INJECTION J2997 [facility] 9 Y [facility] RECOMBINA NT 1 MG INJECTION J3010 [facility] FENTANYL 9 Y Y [facility] 0.1 MG EXCISION 44163 MATEO AVIMOI, RADIAL 9 MEDICAL [facility] HEAD SERV FOUNDATIO RAD RESCJ 87595 MATEO LEVY, CAPSL 9 [facility] TISS&HTRT SERV PC BONE FOUNDATIO ELBW CONTRCT UNCLASSIF J3490 [facility] IED DRUGS 9 Y [facility] ANESTHESI 20738 MATEO MELI, Reid 9 MEDICAL JULIETTE C OPEN/SURG SERVICES ARTHRS RADICAL PROC ELBOW INJECTION J2270 [facility] MORPHINE 9 Y Y [facility] UP TO 10 MG INJECTION J2405 [facility] 9 [facility] PER 1 MG ARTHROSCO 05653 [facility] PY ELBOW 9 Y Y SURGICAL [facility] SYNOVECTO MY COMPLETE UNLISTED 82803 [facility] PROCEDURE 9 Y Y [facility] [place] [address] [facility] SURG 9 Y Y PATHOLOGY [facility] GROSS&SONU ROSCOPIC EXAM DECALCIFI 82008 [facility] CATION 9 Y Y PROCEDURE [facility] INJECTION J2175 [facility] 9 Y Y MEPERIDIN [facility] E HCL PER 100 MG INJECTION J2795 [facility] 9 Y Y [facility] NE HYDROCHLO RIDE 1 MG BLOOD 38073 [facility] UNIVERS COUNT 9 Y Y COMPLETE [facility] AUTO&AUTO DIFRNTL WBC RADIOLOGI 65065 [facility] C EXAM 9 Y Y CHEST 2 [facility] FRONTAL&L ATERAL INSJ PRPH 79278 [facility] CVC W/O 9 Y Y SUBQ HOSPITAL HOSPITAL PORT/SANDFILL OPERATOR SURFACE AGE 6 YR/> FACTOR 44366 [facility] INHIBITOR 9 Y Y TEST [facility] RADEX 16890 [place] MATHIAS, ELBOW 2 9 MEDICAL HITESH N VIEWS SERV FOUNDATIO BLOOD 53896 Heidi REDD COUNT 9 CARE G COMPLETE ASSOCIATE AUTO&AUTO S DIFRNTL WBC THERAPEUT 93415 SHIRA SILVA IC PX 1/> 9 [facility] AREAS INC INC EACH 15 MIN EXERCISES APPL 14352 SHIRA SILVA MODALITY 9 [facility] 1/> AREAS INC INC IONTOPHOR ESIS EA 15 MIN APPL 11660 SHIRA [facility]ON MODALITY 9 [facility] 1/> AREAS INC INC ULTRASOUN D EA 15 MIN APPL 19160 SHIRA [place]ON MODALITY 9 [facility] 1/> AREAS INC INC ULTRASOUN D EA 15 MIN MANUAL 57991 SHIRA SILVA THERAPY 9 [facility] TQS 1/> INC INC REGIONS EACH 15 MINUTES APPL 82772 SHIRA SILVA MODALITY 9 [facility] 1/> AREAS INC INC IONTOPHOR ESIS EA 15 MIN PHYSICAL 83553 SHIRA SILVA THERAPY 9 [facility] EVALUATIO INC INC N THERAPEUT 49452 SHIRA SILVA IC PX 1/> 9 [facility] AREAS INC INC EACH 15 MIN EXERCISES RADIOLOGI 77803 Giselle RILEY 9 MEDICAL SERENITY N EXAMINATI SERV ON KNEE 3 FOUNDATIO VIEWS RADIOLOGI 67198 Giselle RILEY MEDICAL SERENITY N EXAMINATI SERV ON KNEE FOUNDATIO 1/2 VIEWS MRI ANY 19173 ROLANDO C SYL, JT LOWER 9 SYL ROLANDO EXTREM W/O CONTRAST MATRL COLLECTIO 33676 FAMILY MULBERRY, N 9 CARE ALEKSANDR T CAPILLARY ASSOCIATE BLOOD S SPECIMEN BLOOD 60695 FAMILY MULBERRY, COUNT 9 CARE ALEKSANDR T COMPLETE ASSOCIATE AUTO&AUTO S DIFRNTL WBC RADIOLOGI 47972 SHIRA SILVA C 9 [facility] EXAMINATI INC INC ON KNEE 3 VIEWS BLOOD 81902 FAMILY MULBERRY, COUNT 9 CARE ALEKSANDR T COMPLETE ASSOCIATE AUTO&AUTO S DIFRNTL WBC COLLECTIO 64015 FAMILY MULBERRY, N 9 CARE ALEKSANDR T CAPILLARY ASSOCIATE BLOOD S SPECIMEN RADEX 34700 UNIVERSIT DIPTI, ELBOW 2 9 Y OF JENELLE A VIEWS [facility] APPL 18363 SHIRA SILVA MODALITY 9 [facility] 1/> AREAS INC INC ELEC STIMJ UNATTENDE D THERAPEUT 36939 SHIRA SILVA IC PX 1/> 9 [facility] AREAS INC INC EACH 15 MIN EXERCISES APPLICATI 83632 SH[facility] SILVA ON 9 [facility] MODALITY INC INC 1/> AREAS HOT/COLD PACKS APPLICATI 34887 SH[facility]A SILVA ON 9 [facility] MODALITY INC INC 1/> AREAS HOT/COLD PACKS THERAPEUT 10065 SHIRA SILVA IC PX /> 9 [facility] AREAS INC INC EACH 15 MIN EXERCISES APPL 32710 SHIRA SILVA MODALITY 9 [facility] 1/> AREAS INC INC ELEC STIMJ UNATTENDE D URNLS DIP 22576 FAMILY YAJAIRA, 9 CARE R NII STICK/TAB ASSOCIATE LET RGNT S NON-AUTO W/O MICRSCP CULTURE 16715 COMBINED COMBINED BACTERIAL 9 PHYSICIAN PHYSICIAN S LAB S LAB QUANTTATI VE COLONY COUNT URINE URNLS DIP 73734 FAMILY YAJAIRA, 9 CARE R NII STICK/TAB ASSOCIATE LET RGNT S NON-AUTO W/O MICRSCP APPL 59561 SHIRA SILVA MODALITY 9 [facility] 1/> AREAS INC INC ELEC STIMJ UNATTENDE D THERAPEUT 05744 SHIRA SILVA IC PX /> 9 [facility] AREAS INC INC EACH 15 MIN EXERCISES APPLICATI 45425 SHIRA SILVA ON 9 [facility] MODALITY INC INC 1/> AREAS HOT/COLD PACKS MANUAL 44954 SHIRA SILVA THERAPY 9 [facility] TQS 1/> INC INC REGIONS EACH 15 MINUTES THERAPEUT 64438 SHIRA SILVA IC PX 1/> 9 [facility] AREAS INC INC EACH 15 MIN EXERCISES THERAPEUT 27216 SHIRA SILVA IC PX 1/> 9 [facility] AREAS INC INC EACH 15 MIN EXERCISES APPL 95192 SHIRA SILVA MODALITY 9 [facility] 1/> AREAS INC INC ELEC STIMJ UNATTENDE D MANUAL 67444 SHIRA SILVA THERAPY 9 [facility] TQS 1/> INC INC REGIONS EACH 15 MINUTES APPLICATI 70226 SHIRA SILVA ON 9 [facility] MODALITY INC INC 1/> AREAS HOT/COLD PACKS MANUAL 44803 SHIRA SHIRA THERAPY 9 [facility] TQS 1/> INC INC REGIONS EACH 15 MINUTES THERAPEUT 58554 SHIRA HEARDON IC PX /> 9 [facility] AREAS INC INC EACH 15 MIN EXERCISES THERAPEUT 40349 SHIRA HEARDON IC PX /> 9 [facility] AREAS INC INC EACH 15 MIN EXERCISES PHYSICAL 99736 SHIRA SHIRA THERAPY 9 [facility] EVALUATIO INC INC N ANKLE L1930 PROSTHETI PROSTHETI FOOT 8 C&ORTHOTI C&ORTHOTI ORTHOTIC C C PLASTIC/O ASSOCIATE ASSOCIATE [facility] S,[facility] PREFAB RADEX 19352 [place] ABDIRASHID, ANKLE 8 MEDICAL REJI K COMPLETE SERV MINIMUM 3 [facility] [address] [facility], DISCHARGE 8 MEDICAL ANDRES DAY SERV MANAGEMEN FOUNDAT[facility] T 30 MIN/< CT PELVIS [address]484 [facility], 8 MEDICAL MIKEY W/CONTRAS SERV T FOUNDATIO MATERIAL INITIAL 34182 [place] OLY INPATIENT 8 MEDICAL , JANAE CONSULT SERV R NEW/ESTAB [place]AT[place] [address] [place] [address] [facility], ABDOMEN 8 MEDICAL MIKEY W/CONTRAS SERV T FOUNDATIO MATERIAL SBSQ 15717 [facility] 8 [facility] SERV 25 FOUNDATIO MINUTES INFUSION 0011 [place] [address] Y Y [facility] INITIAL 21974 [facility] 70 FOUNDATIO MINUTES BLOOD 92465 FAMILY YAJAIRA, COUNT 8 CARE R NII COMPLETE ASSOCIATE AUTO&AUTO S DIFRNTL WBC CT PELVIS 30917 FANY MANJARREZ, 8 MEDICAL VILMA P W/CONTRAS IMAGING T ASSOCIATE MATERIAL S 3D 43790 FANY MANJARREZ, RENDERING 8 MEDICAL VILMA P IMAGING W/INTERP& [place]OCI[place] [address] FANY MANJARREZ, ABDOMEN 8 MEDICAL VILMA P W/CONTRAS IMAGING T ASSOCIATE MATERIAL S BLOOD 02803 FAMILY OCONNOR, COUNT 8 CARE ALEKSANDR T COMPLETE ASSOCIATE AUTO&AUTO S DIFRNTL WBC BLOOD 24855 FAMILY GONZALEZHeidi COUNT 8 CARE G COMPLETE ASSOCIATE AUTO&AUTO S DIFRNTL WBC THROMBOPL 05307 COMBINED COMBINED ASTIN 8 PHYSICIAN PHYSICIAN TIME S LAB S LAB PARTIAL PLASMA/WH OLE BLOOD PROTHROMB 03635 Heidi GONZALEZ IN TIME 8 CARE G ASSOCIATE S Encounters Encounter Start End Date Code Location Performer Type Date OFFICE 60057 FAMILY YAJAIRA OUTPATIEN 7 7 CARE T VISIT ASSOCIATE 15 S MINUTES OFFICE 60341 FAMILY WARE OUTPATIEN 7 7 CARE T VISIT ASSOCIATE 15 S MINUTES OFFICE 32430 FAMILY YAJAIRA OUTPATIEN 7 7 CARE T VISIT ASSOCIATE 15 S MINUTES OFFICE 34064 FAMILY ANASTASIA OUTPATIEN 6 6 CARE T VISIT ASSOCIATE 15 S MINUTES OFFICE 71820 FAMILY YAJAIRA OUTPATIEN 6 6 CARE T VISIT ASSOCIATE 15 S MINUTES EMERGENCY [id number] 6 6 [facility]ALTH[facility] DEPARTMEN E T VISIT HOSPITALS HIGH/URGE NT SEVERITY EMERGENCY 65136 [facility] 6 6 MEDICAL DEPARTMEN SERV T VISIT FOUNDATIO LOW/MODER N SEVERITY HOSPITAL - 6 6 [facility] OUTPATIEN E T HOSPITALS OFFICE 11779 [facility] HARP OUTPATIEN 6 6 PHYSICIAN WENDY T NEW 10 S GROUP MINUTES OFFICE 80018 FAMILY ISAMAR OUTPATIEN 6 6 CARE T VISIT ASSOCIATE 15 S MINUTES OFFICE 00277 FAMILY ISAMAR OUTPATIEN 6 6 CARE TAR T VISIT ASSOCIATE 15 S MINUTES OFFICE 89180 FAMILY ISAMAR OUTPATIEN 6 6 CARE TAR T VISIT ASSOCIATE 15 S MINUTES OFFICE 32894 FAMILY CROWDY OUTPATIEN 6 6 CARE CRI T VISIT ASSOCIATE 15 S MINUTES OFFICE 71670 FAMILY MULBERRY OUTPATIEN 6 6 CARE NEW T VISIT ASSOCIATE 15 S MINUTES OFFICE 02552 FAMILY ISAMAR OUTPATIEN 6 6 CARE TAR T VISIT ASSOCIATE 15 S MINUTES OFFICE 31421 FAMILY LISA OUTPATIEN 6 6 CARE PAUL T VISIT ASSOCIATE 15 S MINUTES OFFICE 34367 FAMILY ISAMAR OUTPATIEN 6 6 CARE TAR T VISIT ASSOCIATE 15 S MINUTES OFFICE 43840 FAMILY LISA OUTPATIEN 6 6 CARE PAUL T VISIT ASSOCIATE 15 S MINUTES OFFICE 72755 FAMILY LISA OUTPATIEN 6 6 CARE PAUL T VISIT ASSOCIATE 15 S MINUTES HOSP[facility] 20540 [place] ECKERLINE 6 6 MEDICAL JR ROSE DEPARTMEN SERV T VISIT FOUNDATIO MODERATE N SEVERITY OFFICE 45907 FAMILY YAJAIRA OUTPATIEN 6 6 CARE R H T VISIT ASSOCIATE 15 S MINUTES EMERGENCY 35911 YAYA PAZ 6 6 PHYSICIAN U NAM DEPARTMEN S, PLLC T VISIT MODERATE SEVERITY OFFICE 66514 FAMILY ISAMAR OUTPATIEN 6 6 CARE TAR T VISIT ASSOCIATE 15 S MINUTES OFFICE 24908 FAMILY LISA OUTPATIEN 6 6 CARE PAUL T VISIT ASSOCIATE 10 S MINUTES HOSPITAL [facility] - 6 6 [facility] SHIRA - 6 6 [facility] OUTPATIEN [facility]A - 6 6 [facility] OUTPATIEN [facility] OFFICE 82034 FAMILY LISA OUTPATIEN 6 6 CARE PAUL T VISIT ASSOCIATE 15 S MINUTES HOSPITAL [facility] - 6 6 [facility] OUTPATIEN [facility] - 6 6 [facility] OUTPATIEN [facility] - 6 6 [facility] SH[facility] - 6 6 [facility] OUTPATIEN [facility] SHIRA - 6 6 [facility] OUTPATIEN [facility] OFFICE 09989 FAMILY LISA OUTPATIEN 6 6 CARE PAUL T VISIT ASSOCIATE 15 S MINUTES [facility] SHIRA - 6 6 [facility] OUTPATIEN [facility] EMERGENCY 79850 YAYA PAZ 6 6 PHYSICIAN Julita [facility], [facility] T VISIT HIGH/URGE NT SEVERITY OFFICE 56000 FAMILY LISA OUTPATIEN 6 6 CARE PAUL T VISIT ASSOCIATE 15 S MINUTES EMERGENCY 48493 YAYA MARTINEZ 6 6 PHYSICIAN JR [facility] S, [facility] T VISIT HIGH/URGE NT SEVERITY OFFICE 84220 FAMILY YAJAIRA OUTPATIEN 6 6 CARE R H T VISIT ASSOCIATE 15 S MINUTES OFFICE 03812 FAMILY CROWDY OUTPATIEN 6 6 CARE CRI T VISIT ASSOCIATE 15 S MINUTES OFFICE 68247 FAMILY CROWDY OUTPATIEN 6 6 CARE CRI T VISIT ASSOCIATE 15 S MINUTES OFFICE 04773 FAMILY YAJAIRA OUTPATIEN 6 6 CARE R H T VISIT ASSOCIATE 15 S MINUTES OFFICE 91169 FAMILY CROWDY OUTPATIEN 6 6 CARE CRI T VISIT ASSOCIATE 15 S MINUTES OFFICE 53688 FAMILY LISA OUTPATIEN 5 5 CARE PAUL T VISIT ASSOCIATE 15 S MINUTES OFFICE 86945 FAMILY CROWDY OUTPATIEN 5 5 CARE CRI T VISIT ASSOCIATE 15 S MINUTES OFFICE 63074 FAMILY YAJAIRA OUTPATIEN 5 5 CARE R H T VISIT ASSOCIATE 15 S MINUTES OFFICE 73084 FAMILY CROWDY OUTPATIEN 5 5 CARE CRI T VISIT ASSOCIATE 15 S MINUTES OFFICE 88769 FAMILY CROWDY OUTPATIEN 5 5 CARE CRI T VISIT ASSOCIATE 15 S MINUTES OFFICE 84285 [facility] OUTPATIEN 5 5 PHYSICIAN JAM T VISIT S GROUP 15 MINUTES OFFICE 76287 [facility] PET[facility] OUTPATIEN 5 5 PHYSICIAN JAM T NEW 20 S GROUP MINUTES EMERGENCY 77966 [facility] 5 5 [facility] DEPARTMEN INC T VISIT MODERATE SEVERITY HOSPITAL [facility] - 5 5 [facility] OUTPATIEN INC T OFFICE 29703 FAMILY LISA OUTPATIEN 5 5 CARE PAUL T VISIT ASSOCIATE 25 S MINUTES OFFICE 82311 FAMILY YAJAIRA OUTPATIEN 5 5 CARE R H T VISIT ASSOCIATE 15 S MINUTES OFFICE 60484 UN[facility]ERSIT OUTPATIEN 5 5 Y T VISIT HOSPITAL 10 MINUTES HOSPITAL UNIVERSIT - 5 5 Y OUTPATIEN HOSPITAL T OFFICE 83466 [place] MICHOACANO OUTPATIEN 5 5 MEDICAL ALLEN T VISIT SERV 25 FOUNDATIO MINUTES N OFFICE 63170 FAMILY YAJAIRA OUTPATIEN 5 5 CARE R H T VISIT ASSOCIATE 15 S MINUTES OFFICE 73653 FAMILY CROWDY OUTPATIEN 5 5 CARE CRI T VISIT ASSOCIATE 15 S MINUTES OFFICE 67229 FAMILY LISA J OUTPATIEN 5 5 CARE G T VISIT ASSOCIATE 15 S MINUTES HOSPITAL [facility] - 5 5 [facility] OUTPATIEN INC T EMERGENCY 63055 [facility] 5 5 [facility] T VISIT MODERATE SEVERITY EMERGENCY 08869 [facility] DE LA VEGA 5 5 [facility] T VISIT P LOW/MODER SEVERITY OFFICE 09857 FAMILY MULBERRY OUTPATIEN 4 4 CARE NEW T VISIT ASSOCIATE 15 S MINUTES OFFICE 43398 FAMILY YAJAIRA OUTPATIEN 4 4 CARE R H T VISIT ASSOCIATE 15 S MINUTES OFFICE 44167 FAMILY MULBERRY OUTPATIEN 4 4 CARE NEW T VISIT ASSOCIATE 15 S MINUTES OFFICE 73174 FAMILY OUTPATIEN 4 4 CARE T VISIT ASSOCIATE 15 S MINUTES OFFICE 50840 FAMILY YAJAIRA OUTPATIEN 4 4 CARE R H T VISIT ASSOCIATE 15 S MINUTES OFFICE 89735 LISA J OUTPATIEN 4 4 G T VISIT 15 MINUTES OFFICE 72024 MULBERRY MULBERRY OUTPATIEN 4 4 NEW NEW T VISIT 15 MINUTES OFFICE 97710 ABDULAZIZ CINTRON OUTPATIEN 4 4 ERIC ERIC T VISIT 15 MINUTES OFFICE 95222 MULBERRY MULBERRY OUTPATIEN 4 4 NEW NEW T VISIT 15 MINUTES OFFICE 27210 LISA GONZALEZ J OUTPATIEN 4 4 G G T VISIT 15 MINUTES HOSPITAL [facility] - 4 4 [facility] OUTPATIEN INC T OFFICE 31338 FAMILY OUTPATIEN 3 3 CARE T VISIT ASSOCIATE 15 S MINUTES OFFICE 06416 MULBERRY MULBERRY OUTPATIEN 3 3 NEW NEW T VISIT 15 MINUTES OFFICE 49081 FAMILY LISA OUTPATIEN 3 3 CARE PAUL T VISIT ASSOCIATE 15 S MINUTES OFFICE 68617 [place] ROMOND OUTPATIEN 3 3 MEDICAL EDW T VISIT SERV 25 FOUNDATIO MINUTES N OFFICE 45537 YAJAIRA YAJAIRA OUTPATIEN 3 3 R H R H T VISIT 15 MINUTES OFFICE 08052 ABDULAZIZ CINTRON OUTPATIEN 3 3 ERIC ERIC T VISIT 15 MINUTES OFFICE 81707 KMSF ABDULAZIZ OUTPATIEN 3 3 NURSE ERIC T VISIT PRACTITIO 15 NER GR MINUTES HOSPITAL UNIVERSIT - 3 3 Y [facility] T OFFICE 05231 LISA Gordon OUTPATIEN 3 3 G G T VISIT 10 MINUTES HOSPITAL [facility] - 3 3 [facility] OUTPATIEN [facility] T OFFICE 61666 LISA Gordon OUTPATIEN 3 3 G G T VISIT 15 MINUTES HOSPITAL [facility] - 3 3 [facility] OUTPATIEN [facility] T OFFICE 38771 ABDULAZIZ CINTRON OUTPATIEN 3 3 ERIC ERIC T VISIT 15 MINUTES OFFICE 66676 MULBERRY MULBERRY OUTPATIEN 3 3 NEW NEW T VISIT 15 MINUTES OFFICE 61846 [facility] SILVA OUTPATIEN 2 2 [facility] VISIT CENTER CENTER 10 MINUTES [facility] UNIVERSIT - 2 2 Y [facility] SH[facility]A - 2 2 [facility] OUTPATIEN INC T EMERGENCY 47637 MATEO CALLOWAY 2 2 MEDICAL NEW DEPARTMEN SERV T VISIT FOUNDATIO MODERATE SEVERITY EMERGENCY 33659 UNIVERSIT DEPT 2 2 Y VISIT HOSPITAL HIGH SEVERITY& [facility] UNIVERSIT - 2 2 Y [facility] - 2 2 [facility] OUTPATIEN INC T OFFICE 29350 ABDULAZIZ CINTRON OUTPATIEN 2 2 ERIC ERIC T VISIT 15 MINUTES HOSPITAL UNIVERSIT - 2 2 Y [facility] T OFFICE 47091 BRENDA FREEMANGH CONSULTAT 2 2 LUCIAN LUCIAN ION NEW/ESTAB PATIENT 40 MIN OFFICE 64329 CAM LEVY OUTPATIEN 2 2 SRI SRI T VISIT 25 MINUTES HOSPITAL UNIVERSIT - 2 2 Y [facility] T OFFICE 99755 FAMILY OUTPATIEN 2 2 CARE T VISIT ASSOCIATE 15 S MINUTES OFFICE 56279 ABDULAZIZ CINTRON OUTPATIEN 2 2 ERIC ERIC T VISIT 15 MINUTES OFFICE 69810 WARE WARE OUTPATIEN 2 2 KATIUSKA KATIUSKA T VISIT 15 MINUTES OFFICE 13062 LISA Gordon OUTPATIEN 2 2 T VISIT 15 MINUTES HOSPITAL [facility] - 2 2 [facility] OUTPATIEN INC T OFFICE 84422 LISA Gordon OUTPATIEN 2 2 T VISIT 15 MINUTES OFFICE 74857 CHAZ WARE OUTPATIEN 2 2 KATIUSKA KATIUSKA T VISIT 15 MINUTES HOSPITAL [facility] - 2 2 [facility] OUTPATIEN INC T EMERGENCY 47203 [facility] 2 2 [facility] DEPARTMEN INC T VISIT MODERATE SEVERITY OFFICE 15975 FAMILY WARE OUTPATIEN 2 2 CARE KATIUSKA T VISIT ASSOCIATE 15 S MINUTES HOSPITAL [facility] - 1 1 [facility] OUTPATIEN INC T OFFICE 45956 ABDULAZIZ CINTRON OUTPATIEN 1 1 ERIC ERIC T VISIT 15 MINUTES OFFICE 53113 MARINE HAWTHORNE OUTPATIEN 1 1 YESI YESI T NEW 30 MINUTES OFFICE 11782 FAMILY MULBERRY OUTPATIEN 1 1 CARE NEW T VISIT ASSOCIATE 15 S MINUTES OFFICE 05415 FAMILY ZEESHANBERRY OUTPATIEN 1 1 CARE NEW T VISIT ASSOCIATE 15 S MINUTES HOSPITAL [facility] - 1 1 [facility] OUTPATIEN INC T OFFICE 80682 FAMILY ZEESHANBERRY OUTPATIEN 1 1 CARE NEW T VISIT ASSOCIATE 15 S MINUTES OFFICE 07571 FAMILY YAJAIRA OUTPATIEN 1 1 CARE R H T VISIT ASSOCIATE 15 S MINUTES OFFICE 60250 FAMILY YAJAIRA OUTPATIEN 1 1 CARE R H T VISIT ASSOCIATE 15 S MINUTES OFFICE 27671 FAMILY LISA Gordon OUTPATIEN 1 1 CARE T VISIT ASSOCIATE 15 S MINUTES OFFICE 99332 ABEBESMauricio CINTRON OUTPATIEN 1 1 NURSE ERIC T VISIT PRACTITIO 15 NER GR MINUTES OFFICE 87617 FAMILY ANASTASIA OUTPATIEN 1 1 CARE NEW T VISIT ASSOCIATE 25 S MINUTES OFFICE 64623 MATEO RÍOS OUTPATIEN 1 1 MEDICAL ALLEN T VISIT SERV 15 FOUNDATIO MINUTES HOSPITAL [facility] - 0 0 [facility] OUTPATIEN INC T OFFICE 05465 FAMILY LISA Gordon OUTPATIEN 0 0 CARE T VISIT ASSOCIATE 15 S MINUTES OFFICE 75925 FAMILY YAJAIRA OUTPATIEN 0 0 CARE R H T VISIT ASSOCIATE 15 S MINUTES OFFICE 21887 FAMILY ZEESHANBERRY OUTPATIEN 0 0 CARE NEW T VISIT ASSOCIATE 15 S MINUTES HOSPITAL UNIVERSIT - 0 0 Y INPATIENT HOSPITAL OFFICE 58660 FAMILY GONZALEZ J OUTPATIEN 0 0 CARE T VISIT ASSOCIATE 15 S MINUTES OFFICE 72806 MATEO RÍOS OUTPATIEN 0 0 MEDICAL ALLEN T VISIT SERV 10 FOUNDATIO MINUTES OFFICE 13852 FAMILY ANASTASIA OUTPATIEN 0 0 CARE NEW T VISIT ASSOCIATE 15 S MINUTES [facility] JOHN CINTRON OUTPATIEN 0 0 NURSE JOSÉ Stephens T VISIT PRACTITIO 15 NER GROUP MINUTES OFFICE 48511 Heidi GONZALEZ OUTPATIEN 0 0 CARE G T VISIT ASSOCIATE 15 S MINUTES OFFICE 25495 FAMILY GATES, OUTPATIEN 0 0 CARE R NII T VISIT ASSOCIATE 15 S MINUTES OFFICE 86299 JOHN CINTRON OUTPATIEN 0 0 NURSE JOSÉ Stephens T VISIT PRACTITIO 15 NER GROUP MINUTES OFFICE 12119 FAMILY GATES, OUTPATIEN 0 0 CARE R NII T VISIT ASSOCIATE 15 S MINUTES OFFICE 09220 FAMILY OCONNOR, OUTPATIEN 0 0 CARE ALEKSANDR T T VISIT ASSOCIATE 15 S MINUTES OFFICE 51024 Heidi GONZALEZ OUTPATIEN 0 0 CARE G T VISIT ASSOCIATE 15 S MINUTES OFFICE 00254 MATEO GLORIAKAYLEEN, OUTPATIEN 0 0 MEDICAL EDWARD T VISIT SERV 15 FOUNDATIO MINUTES OFFICE 07806 FAMILY GATES, OUTPATIEN 0 0 CARE R NII T VISIT ASSOCIATE 15 S MINUTES HOSPITAL UNIVERSIT - 0 0 Y [facility] T OFFICE 47420 FAMILY CARSONT, OUTPATIEN 9 9 CARE R NII T VISIT ASSOCIATE 15 S MINUTES HOSPITAL [facility] - 9 [facility] OUT[facility]EN [facility] - 9 9 [facility] OUTPATIEN [facility] - 9 9 [facility] OUTPATIEN [facility] OFFICE 10473 FAMILY OCONNOR, OUTPATIEN 9 9 CARE ALEKSANDR T T VISIT ASSOCIATE 15 S MINUTES OFFICE 40679 FAMILY GATES, OUTPATIEN 9 9 CARE R NII T VISIT ASSOCIATE 15 S MINUTES OFFICE 07558 ABEBEDreaMauricio CINTRON OUTPATIEN 9 9 NURSE JOSÉ Stephens T VISIT PRACTITIO 10 NER GROUP MINUTES OFFICE 78499 FAMILY OCONNOR OUTPATIEN 9 9 CARE ALEKSANDR T T VISIT ASSOCIATE 15 S MINUTES HOSPITAL [facility] - 9 9 [facility] OUTPATIEN INC T OFFICE 16119 [place] OUT[facility]IEN 9 9 [facility] T VISIT INC 10 MINUTES HOME [facility], 9 9 HOME [facility] T [facility] UNIVERSIT [facility] 9 9 Y [facility] T HOME [facility], 9 9 HOME [facility] T [facility] UNIVERSIT - 9 9 Y [facility] T OFFICE 46409 MATEO CAM OUTPATIEN 9 9 MEDICAL BIMAL T VISIT SERV 15 FOUNDATIO MINUTES [facility] UNIVERSIT - 9 9 Y [facility] T OFFICE 57835 Heidi REDD OUTPATIEN 9 9 CARE G T VISIT ASSOCIATE 15 S MINUTES OFFICE 54689 FAMILY GATES, OUTPATIEN 9 9 CARE R NII T VISIT ASSOCIATE 15 S MINUTES OFFICE 19133 MATEO ANNY OUTPATIEN 9 9 MEDICAL EDWARD T VISIT SERV 15 FOUNDATIO MINUTES HOSPITAL [facility] - 9 9 [facility] OUTPATIEN INC T OFFICE 71190 [place] KACI, CONSULTAT 9 9 MEDICAL JULIETTE T ION SERV NEW/ESTAB FOUNDATIO PATIENT 40 MIN OFFICE 00109 FAMILY YAJAIRA OUTPATIEN 9 9 CARE R NII T VISIT ASSOCIATE 15 S MINUTES OFFICE 21767 FAMILY MULBERRY, OUTPATIEN 9 9 CARE ALEKSANDR T T VISIT ASSOCIATE 15 S MINUTES OFFICE 06461 FAMILY YAJAIRA, OUTPATIEN 9 9 CARE R NII T VISIT ASSOCIATE 15 S MINUTES HOSPITAL [facility] - 9 9 [facility] OUTPATIEN INC T OFFICE 59168 FAMILY MULBERRY, OUTPATIEN 9 9 CARE ALEKSANDR T T VISIT ASSOCIATE 15 S MINUTES OFFICE 94661 FAMILY MULBERRY, OUTPATIEN 9 9 CARE ALEKSANDR T T VISIT ASSOCIATE 15 S MINUTES [facility] 78414 ABEBESMauricio ESTRADAON, OUTPATIEN 9 9 NURSE JOSÉ Stephens T VISIT PRACTITIO 10 NER GROUP MINUTES [facility]OSPITAL [facility] - 9 9 [facility] OUTPATIEN INC T OFFICE 96436 FAMILY YAJAIRA, OUTPATIEN 9 9 CARE R NII T VISIT ASSOCIATE 15 S MINUTES OFFICE 20967 FAMILY YAJAIRA, OUTPATIEN 9 9 CARE R NII T VISIT ASSOCIATE 15 S MINUTES OFFICE 21086 FAMILY YAJAIRA, OUTPATIEN 9 9 CARE R NII T VISIT ASSOCIATE 15 S MINUTES HOSPITAL [facility] - 9 9 [facility] OUTPATIEN INC T OFFICE 67035 FAMILY YAJAIRA, OUTPATIEN 9 9 CARE R NII T VISIT ASSOCIATE 15 S MINUTES OFFICE 31547 MATEO MCCORMICK, OUTPATIEN 9 9 MEDICAL EDWARD T VISIT SERV 15 FOUNDATIO MINUTES OFFICE 94866 FAMILY YAJAIRA, OUTPATIEN 9 9 CARE R NII T VISIT ASSOCIATE 15 S MINUTES OFFICE 76937 FAMILY YAJAIRA, OUTPATIEN 8 8 CARE R NII T VISIT ASSOCIATE 10 S MINUTES OFFICE 72369 MATEO RÍOS OUTPATIEN 8 8 MEDICAL ELENA J T VISIT SERV 10 FOUNDATIO MINUTES OFFICE 83128 FAMILY GATES OUTPATIEN 8 8 CARE R NII T VISIT ASSOCIATE 15 S MINUTES OFFICE 42020 MATEO CASTROKAYLEEN OUTPATIEN 8 8 MEDICAL EDWARD T VISIT SERV 15 FOUNDATIO MINUTES HOSPITAL UNIVERSIT - 8 8 Y OUTPATIEN HOSPITAL T OFFICE 14723 MATEO RÍOS OUTPATIEN 8 8 MEDICAL ELENA J T VISIT SERV 15 FOUNDATIO MINUTES HOSPITAL UNIVERSIT - 8 8 Y INPATIENT HOSPITAL OFFICE 55207 FAMILY CARSONDenise BRIPATIEN 8 8 CARE R NII T VISIT ASSOCIATE 15 S MINUTES [facility]OSP[facility] [place] [facility] 87985 FAMILY OCONNOR BRIPATIEN 8 8 CARE ALEKSANDR T T VISIT ASSOCIATE 15 S MINUTES OFFICE 37740 ANASTASIA OUTPATIEN 8 8 CARE ALEKSANDR T T VISIT ASSOCIATE 15 S MINUTES OFFICE 03456 FAMILY GONZALEZHeidi OUTPATIEN 8 8 CARE G T VISIT ASSOCIATE 15 S MINUTES OFFICE 25746 YAJAIRA BRIPATIEN 8 8 CARE R NII T VISIT ASSOCIATE 15 S MINUTES OFFICE 24288 MATEO ANNY BRIPATIPATRICA 8 8 MEDICAL EDWARD T VISIT SERV 15 FOUNDATIO MINUTES
[2017-04-05 10:35] LABS: BUN 8 mg/dL (7-18); GFR (ESTIMATED) 95 ML/MIN (>60)
--- OUTSIDE RECORDS SUMMARY | 2017-04-05 10:45 | External Medical Summary Rpt ---
Author Author , [facility] Organization [facility] Address Unknown Phone [email or web address] Team Providers Care Instructor Watch Assembly Name Role Phone [facility] Unavailable [...] [facility], Unavailable Unavailable [facility] Unavailable Unavailable INC # [id number], [facility] # 0008 [facility], BIOR[facility] Unavailable Unavailable [facility], [facility] Unavailable Unavailable CHAMPION ALL, [facility]AMPION ALL Unavailable Unavailable JANAE ALDRIDGE R, Unavailable Unavailable JANAE ALDRIDGE MICHAEL A, Unavailable Unavailable MARIO ALBERTO KING ROBERT C, Unavailable Unavailable [facility], Unavailable [facility]available [facility], Unavailable [facility] Unavailable Unavailable [place], [facility] Unavailable Unavailable [facility], [facility] Unavailable Unavailable LAB, [facility] LISA ALMAZAN Unavailable Unavailable LISA ALMAZAN Unavailable Unavailable LISA IGLESIAS Unavailable Unavailable G LISA IGLESIAS Unavailable Unavailable G LISA MORRIS Unavailable Unavailable Heidi LARKIN COOPER, Unavailable Unavailable Heidi Gil CROWRADHA CRI, CROWDY Unavailable Unavailable CRI SYL MARA, Unavailable Unavailable SYL MARA SYL MARA, Unavailable Unavailable SYL MARA ROLANDO STREETER, Unavailable Unavailable SYL, ROLANDO [facility], [facility] Unavailable Unavailable [facility], [facility] Unavailable Unavailable [facility], Unavailable Unavailable [facility] Unavailable Unavailable [facility], [facility] JR TYRONE MARTINEZ, Unavailable Unavailable MARTINEZ, JR ELZ CEFERINO SONU, CEFERINO Unavailable Unavailable SONU KACI, JULIETTE T, Unavailable Unavailable KACI, JULIETTE T WARE, WARE Unavailable Unavailable WARE KATIUSKA, WARE Unavailable Unavailable KATIUSKA WARE KATIUSKA, WARE Unavailable Unavailable KATIUSKA HANA ANT, HANA ANT Unavailable Unavailable [facility] Unavailable Unavailable CENTER, [facility] Unavailable Unavailable CENTER, [facility] Unavailable Unavailable INC, [facility] Unavailable Unavailable [facility]PITAL P, [facility], [facility] Unavailable Unavailable [facility], Unavailable Unavailable [facility] KAMINENI SRI, Unavailable Unavailable KAMINENI SRI KAMINENI SRI, Unavailable Unavailable KAMINENI SRI KAMINENI, BIMAL, Unavailable Unavailable KAMINENI, BIMAL ABAD, CHICHUAN Y, Unavailable Unavailable ABAD, CHICHUAN Y KARAZEEM, THO, Unavailable Unavailable KARPARKERS, JR THO [facility], Unavailable Unavailable [facility], Unavailable Unavailable [facility] Unavailable Unavailable [facility], [facility] Un[facility], Unavailable Unavailable [facility] Unavailable Unavailable [facility], [facility] Unavailable Unavailable [facility], [facility] MICHOACANO VILLA, Unavailable Unavailable ELENA STINSON, Unavailable Unavailable ELENA RÍOS LAWSON Unavailable Unavailable [facility] Un[facility]available [facility] BRENDA LUCIAN, Unavailable Unavailable BRENDA LUCIAN JENELLE RESENDEZ, Unavailable Unavailable JENELLE RESENDEZ MERKING GAR, MERHAR Unavailable Unavailable GAR VILMA MANJARREZ, Unavailable Unavailable VILMA MANJARREZ MULBERRY, MULBERRY Unavailable Unavailable MULBERRY NEW, Unavailable Unavailable MULBERRY NEW MULBERRY NEW, Unavailable Unavailable MULBERRY NEW MULBERRY, ALEKSANDR T, Unavailable Unavailable MULBERRY, ALEKSANDR T NICKELS MALIKA, NICKELS Unavailable Unavailable MALIKA YAJAIRA, YAJAIRA Unavailable Unavailable YAJAIRA R H, Unavailable Unavailable YAJAIRA R H YAJAIRA R H, Unavailable Unavailable YAJAIRA R H Deneen GATES, Unavailable Unavailable Deneen GATES WILLIAM N, Unavailable Unavailable [facility], Unavailable Unavailable [facility] CINTRON ERIC, Unavailable Unavailable CINTRON ERIC CINTRON, JOSÉ M, Unavailable Unavailable JOSÉ CINTRON M PETTINAY JAM, PETTEY Unavailable Unavailable MIKA MAXWELL, KUSH Unavailable Unavailable [id number] Unavailable Unavailable [id number] Unavailable Unavailable [id number] [address] [id number], [facility] [id number] [address] [id number] ROMOND EDW, ROMOND Unavailable Unavailable EDW ROMOND, EDWARD, Unavailable Unavailable ROMOND, EDWARD [facility] Unavailable Unavailable [facility], [facility] Unavailable Unavailable [facility], [facility] SOTINGEANU NAM, Unavailable Unavailable SOTINGEANU NAM CHEPE AMBROSIO, CHEPE Unavailable Unavailable AMBROSIO CARLOS ERIC, CARLOS Unavailable Unavailable ERIC LISA, LISA Unavailable Unavailable REILLY KING, REILLY Unavailable Unavailable [facility] Unavailable Unavailable HOSPITALS, [facility], Unavailable Unavailable [facility] Unavailable Unavailable [facility], [facility] Unavailable Unavailable #591, [facility] # Unavailable Unavailable [id number], [facility] # [id number] [facility] Unavailable Unavailable [facility], [facility] Unavailable Unavailable [facility], [facility] [place], [facility]available Unavailable [facility], Unavailable Unavailable [facility] Purpose Continuity of Care Document - 09-23-2007 through 2016 Problems Code Diagnosis DOS Provider Status B360 PITYRIASIS 02-08-2017 [facility] J301 ALLERGIC 02-08-2017 [facility] RHINITIS [facility] DUE TO POLLEN J069 ACUTE UPPER 01-15-2017 [facility] RESPIRATORY INFECTION UNSPECIFIED D66 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 J309 ALLERGIC 08-22-2016 [facility] RHINITIS [facility] UNSPECIFIED M7981 NONTRAUMATI 08-21-2016 [facility] HEMATOMA SERV OF SOFT [facility]OUNDATION TISSUE [id number] CONTUSION 08-21-2016 [facility] INITIAL ENCOUNTER [id number] CONTUSION 08-21-2016 [facility] UNS FRONT SERV WALL [facility] INITIAL ENCNTR [id number] CONTUSION 08-21-2016 [facility] OF RIGHT SERV SHOULDER [facility] INITIAL ENCOUNTER J0301 ACUTE 08-14-2016 [facility] RECURRENT PHYSICIANS STREPTOCOCC GROUP AL TONSILLITIS [...] D/T OTH CHEM PRODUCTS R140 ABDOMINAL 01-18-2016 [facility] DISTENSION SERV GASEOUS FOUNDATION Z0389 ENCOUNTER 01-18-2016 [facility] OBSERV OTH SERV SUSPCT DZ & FOUNDATION COND RULED OUT Z048 ENCOUNTER 01-18-2016 [facility] OTHER SPEC REASONS Z049 ENCOUNTER 01-18-2016 [facility] EXAMINATION SERV &OBSERVATIO FOUNDATION N FOR UNS REASON D699 HEMORRHAGIC 01-06-2016 [facility] CONDITION [facility] UNSPECIFIED L7621 POSTPROC 01-05-2016 [facility] HEMORR SKIN PHYSICIANS, & SUBQ PLLC TISSUE FLW DERM PROC L0390 CELLULITIS 12-01-2015 [facility] UNSPECIFIED ASSOCIATES Q07424 CELLULITIS 11-27-2015 [facility] OF CHEST [facility] WALL INC Z792 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 [facility] CURRENT USE [facility] OF [...] ASSOCIATES ITIS COMMON COLD M1990 UNSPECIFIED 07-07-2015 Black Drumm OSTEOARTHRI TIS UNSPECIFIED SITE 4659 ACUTE URIS 05-08-2015 [facility] OF [facility]OCIATES UNSPECIFIED SITE V069 NEED PROPH 03-23-2015 [facility] W/UNSPEC TH DEPT COMB KING VACCINE 7048 OTHER 03-19-2015 [facility] SPECIFIED [facility]ATES DISEASE OF HAIR&HAIR FOLLICLES 2662 OTHER 02-15-2015 [facility] B-COMPLEX PHYSICIANS DEFICIENCIE LA S 7820 DISTURBANCE 02-15-2015 [facility] SKIN PHYSICIANS SENSATION [place] 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 97073 CLOSED 02-03-2015 [facility] FRACTURE OF PHYSICIANS TRIQUETRAL GROUP BONE OF WRIST 8290 CLOSED 02-03-2015 [facility] FRACTURE OF PHYSICIANS GROUP UNSPECIFIED BONE 2410 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 [facility] 69762 ASTHMA, 01-29-2015 [facility] UNSPECIFIED [facility] , INC UNSPECIFIED STATUS 61639 PAIN IN 01-29-2015 [facility], MEDICAL FOREARM [facility] 7239 UNSPEC 01-29-2015 [facility] MUSCULOSKEL [facility] INC D/O&SYMPTOM S REFERABLE NECK 7295 PAIN IN 01-29-2015 [facility] SOFT MEDICAL TISSUES OF IMAGING ASS LIMB 98446 SPRAIN AND 01-29-2015 [facility] STRAIN OF PHYSICIANS, UNSPECIFIED PLLC SITE OF WRIST 83875 SPRAIN AND 01-29-2015 [facility] STRAIN OF MEM HOSP UNSPECIFIED INC SITE OF HAND 9593 INJURY 01-29-2015 [facility] OTHER&UNSPE MEDICAL CIFIED IMAGING ASS ELBOW FOREARM&WRI ST 9594 INJURY 01-29-2015 [facility] OTHER AND MEDICAL UNSPECIFIED IMAGING ASS HAND EXCEPT FINGER 89749 OSTEOARTHRO 11-25-2014 [place] [facility] UNSPEC SERV WHETHER [facility]OUNDATION GEN/LOC ANK&FOOT 56893 UNSPECIFIED 11-25-2014 [facility] ARTHROPATHY ANKLE AND FOOT 68204 SPASM OF 11-25-2014 [facility] 6929 CONTACT 11-24-2014 [facility] DERMATITIS& ASSOCIATES OTHER ECZEMA DUE UNSPEC CAUSE 7336 TIETZES 11-02-2014 [facility] DISEASE [facility] 30703 OPEN WOUND 10-12-2014 [facility] FOREHEAD [facility] WITHOUT MENTION COMPLICATIO N 76993 OPEN WOUND 10-06-2014 [facility] FACE UNSPEC [facility] P WITHOUT MENTION COMP E8490 PLACE OF 10-06-2014 [facility] OCCURRENCE, [facility] P E9600 UNARMED 10-06-2014 [facility] OR [facility] P 4660 ACUTE 09-04-2014 [facility] BRONCHITIS [facility] 58071 OTHER 09-04-2014 [facility] DYSPNEA AND ASSOCIATES RESPIRATORY ABNORMALITI ES 460 ACUTE 07-17-2014 [facility] NASOPHARYNG ASS[facility]ATES ITIS 7821 RASH AND 06-01-2014 [facility] OTHER ASSOCIATES NONSPECIFIC SKIN ERUPTION 7132 ARTHROPATHY 05-05-2014 [facility] W/HEMATOLOG ICAL DISORDERS 462 ACUTE 03-02-2014 MULBERRY PHARYNGITIS NEW 0091 COLITIS 01-08-2014 MULBERRY ENTERIT&GAS NEW TROENTERIT INF ORIGIN 490 BRONCHITIS 09-15-2013 LISA Heidi Gil NOT SPECIFIED ACUTE OR CHRONIC 80790 ASTHMA 09-15-2013 LISA Heidi Gil UNSPECIFIED WITH EXACERBATIO N 4911 MUCOPURULEN 09-12-2013 [facility] CHRONIC HOME BRONCHITIS MEDICAL EQUIPME 4919 UNSPECIFIED 09-12-2013 SYL CHRONIC MARA BRONCHITIS 4720 CHRONIC 05-08-2013 YAJAIRA R RHINITIS H 70120 PAIN IN 01-15-2013 [facility] ANKLE AND FOOT 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 7242 LUMBAGO 11-25-2012 [facility] HOS[facility] INC 71690 PAIN IN 10-29-2012 [facility]INT, [facility] UPPER ARM INC 98785 SWELLING OF 10-29-2012 [facility] [employer] S INC V571 OTHER 10-29-2012 [facility] PH[facility]ICAL [facility] THERAPY INC V016 CONTACT 07-17-2012 [facility] CASTELLANOS WITH OR HEALTH EXPOSURE TO CENTER VENEREAL DISEASES V5412 AFTERCARE 07-09-2012 [facility] TRAUMATIC [facility] FRACTURE LOWER ARM V5489 OTHER 07-09-2012 [facility] AFTERCARE V0481 NEED 06-28-2012 [facility] VACCINATION &INOCULATIO N FLU 27876 UNSPECIFIED 06-10-2012 [facility] HOSP ARTHROPATHY INC , UPPER ARM 90191 UNSPECIFIED 05-30-2012 [facility]THROPATHY [facility] OTHER SPECIFIED SITES 91295 CLOSED 05-30-2012 [place] FRACTURE [facility] OLECRANON PROCESS OF ULNA 92867 OTHER&UNSPE 05-30-2012 [facility] OPEN SERV FRACTURES [facility] PROXIMAL END RADIUS 50253 OTHER 05-09-2012 [facility] PAIN 28944 STIFFNESS 05-09-2012 [facility] UPPER ARM 26136 UNSPECIFIED 05-09-2012 [facility] [place] [address] OTHER 05-09-2012 [facility] [place] [address] OTHER 05-09-2012 [facility] CONGENITAL ANOMALY HEART OTHER 15799 PRIMARY 04-02-2012 KAMINENI LOCALIZED [facility] OSTEOARTHRO [facility] UPPER ARM 95915 OSTEOARTHRO 04-02-2012 [facility] WHETHER GEN/LOC UPPER ARM 38562 LOOSE BODY 04-02-2012 KAMINENI IN UPPER [facility] ARM JOINT 9895 TOXIC 03-05-2012 [facility] EFFECT OF ASSOCIATES VENOM 15201 HEMOPTYSIS 01-16-2012 LISA J UNSPECIFIED 78006 OTHER 01-02-2012 [facility] DISEASES OF MEDICAL LUNG NOT IMAGING ASS ELSEWHERE CLASSIFIED 21885 HEMATURIA 10-16-2011 WARE KATIUSKA UNSPECIFIED 7880 RENAL COLIC 10-14-2011 [facility] INC 25026 ABDOMINAL 10-14-2011 SYL PAIN, LEFT MARA UPPER QUADRANT 1123 CANDIDIASIS 09-25-2011 [facility] OF SKIN ASSOCIATES AND NAILS 59931 HEMARTHROSI 08-24-2011 [facility] S, ANKLE [facility]OS[facility] AND FOOT INC 78033 ASTHMA 07-25-2011 ARNOLD YESI UNSPECIFIED WITH STATUS ASTHMATICUS 5781 BLOOD IN 03-03-2011 [facility] STOOL [facility] 65788 NAUSEA 03-03-2011 [facility] ALONE [facility] 04359 DIARRHEA 03-03-2011 [facility] INC 4779 ALLERGIC 02-07-2011 [facility] RHINITIS [facility]ATES CAUSE UNSPECIFIED 89698 PAINFUL 09-05-2010 [facility] RESPIRATION [facility]ING ASS 30919 OTHER CHEST 09-05-2010 [facility] PAIN [facility] INC 01387 PRIMARY 07-05-2010 [facility] LOCALIZED SERVICES OSTEOARTHRO [facility] ANKLE AND FOOT 72959 ABDOMINAL 06-18-2010 [facility] PAIN, ASSOCIATES EPIGASTRIC 83388 EFFUSION OF 05-31-2010 [facility] JOINT 7388 ACQUIRED 05-31-2010 [facility] ETAL DEFORMITY OTH SPEC SITE 43740 UNSPECIFIED 02-02-2010 [facility] OTALGIA [facility] 6829 CELLULITIS 01-21-2010 [facility] AND ABSCESS ASSOCIATES OF UNSPECIFIED SITE 5589 OTH&UNSPEC 01-03-2010 [facility] NONINFECTIO ASSOCIATES US GASTROENTER ITIS&COLITI S V7260 LABORATORY 10-28-2009 LAB [facility] EXAMINATION [employer] UNSPECIFIED 48663 STOMATITIS 09-09-2009 [facility] AND ASSOCIATES MUCOSITIS UNSPECIFIED V5881 FITTING AND 07-15-2009 [facility] ADJUSTMENT MEM HOSP OF INC VASCULAR CATHETER 66488 SIDEROSIS 06-21-2009 [facility] OF GLOBE SERV FOUNDATIO 28270 OSTEOARTHRO 06-21-2009 [facility] S UNSPEC SERV GEN/LOC OTH FOUNDATIO SPEC SITES 82187 UNSPECIFIED 06-21-2009 [facility] SERV ARTHROPATHY FOUNDATIO , FOREARM 1110 PITYRIASIS 05-27-2009 [facility] VERS[facility]OLOR [facility] 09473 PAIN IN 01-19-2009 [facility] JOINT, SERV LOWER LEG FOUNDATIO 70585 OTHER 11-25-2008 [facility] SPECIFIED ASSOCIATES CIRCULATORY SYSTEM DISORDERS 31684 OTHER CYST 11-16-2008 [facility] 5990 URINARY 10-16-2008 [facility] TRACT ASSOCIATES INFECTION SITE NOT SPECIFIED 59735 OTHER 07-23-2008 PROSTHETIC& ACQUIRED ORTHOTIC DEFORMITY ASSOCIATES, OF [employer] AND FOOT OTHER 4778 ALLERGIC 06-05-2008 [facility] RHINITIS ASSOCIATES DUE TO OTHER ALLERGEN 8250 CLOSED 05-06-2008 [facility] FRACTURE OF SERV CALCANEUS FOUNDATIO 69226 OTHER 02-12-2008 [facility] DISORDERS OF ANKLE&FOOT JOINT 52322 EXOSTOSIS 02-12-2008 [facility] UNSPECIFIED SITE 22393 OTHER 02-12-2008 [facility] OTHER 4590 UNSPECIFIED 01-30-2008 [facility] HEMORRHAGE SERV FOUNDATIO 24392 OTHER 01-30-2008 [facility] RETROPERITO SERV YAYA FOUNDATIO ABSCESS 89888 RETROPERITO 01-30-2008 [facility] N INJURY SERV W/O MENTION FOUNDATIO OPN WOUND IN CAV 84169 HEMOPERITON 01-29-2008 [facility] 19794 ABDOMINAL 01-28-2008 [facility] PAIN, LEFT MEDICAL LOWER IMAGING QUADRANT ASSOCIATES 9245 CONTUSION 11-14-2007 [facility] OF [facility]IATES UNSPECIFIED PART OF LOWER LIMB 7062 SEBACEOUS 10-08-2007 [facility] CYST [facility] Medications Na ND Rx Da Fi Fi Am Da Di Ph RX Ph St me C No te ll ll ou ys ag ar # ys at rm s nt no ma ic us Or Da si cy ia de te s n re d TE 67 06 06 15 15 00 CL Ac RB 40 -0 -3 .0 00 IN ti IN 50 1- 0- 00 00 IC ve AF 50 20 20 43 IN 01 17 17 26 PH E 0 51 AR HC MA L CY 25 0 MG TA BL ET MO 16 06 06 30 30 00 CL Ac NT 72 -0 -3 .0 00 IN ti EL 90 1- 0- 00 00 IC ve UK 11 20 20 43 91 17 17 26 PH T 7 52 AR SO MA D CY 10 MG TA BL ET XY 58 06 [...] 3, 00 0 UN IT KI T OH 00 05 06 24 12 00 CL [...] 0 CY MG CA PS UL E OH 00 12 01 24 12 00 CL [...] 3 60 30 RI 89 NO Ac OH 18 -1 -1 .0 TE 15 RF [...] 3 60 30 RI 89 NO Ac OH 18 -1 -0 .0 TE 15 RF [...] 3 60 30 RI 89 NO Ac OH 18 -1 -1 .0 TE 15 RF [...] 15 3- 3- 00 31 LE ve OH 02 20 20 AI ET ED 20 [...] 11 11 D R E 9 PH OH AR HE OP MA NR CY Y [...] IT IN C # AL 00 08 OH 68 11 11 0 15 4 CL [...] 0 60 30 CL 22 CO Ac OH 18 -1 -1 .0 IN 49 OP ti OP 50 4- 4- 00 IC 78 ER ve IO 41 20 20 N 50 10 10 PH MATT HC 1 AR HN L MA G SR CY 15 LL 0 C MG TA BL ET BU 00 09 09 2 30 30 CL 22 CO Ac OH 18 -2 -2 .0 IN 37 OP [...] 3 30 30 RI 84 CO Ac OH 18 -2 -2 .0 TE 70 OP [...] AR HN MA G CY LL C OH 00 04 04 12 3 RI 83 [...] 80 5- 5- 00 76 ER ve OH 01 20 20 AI AM 10 10 [...] UN OU IT P IN C AL DO 53 07 08 00 14 7 WA 70 NO Ac XY 48 -2 -1 .0 L- 30 RF ti CY 90 8- 3- 00 MA 04 LE ve CL 11 20 20 RT 0 ET IN 90 09 09 R E 2 PH HY AR HE CL MA NR AT CY Y E 10 #5 0 91 MG CA P MU 63 07 08 00 36 9 WA 88 NO Ac CI 82 -2 -1 .0 L- 14 RF ti NE 40 8- 3- 00 MA 40 LE ve X 05 20 20 RT 1 ET D 73 09 09 R ER 6 PH AR HE 60 MA NR 0- CY Y 60 #5 MG 91 TA BL ET AL 68 07 07 00 83 28 AC 21 PE Ac PH 51 -0 -3 20 CR 03 TE ti AN 64 9- 0- .0 ED 1 RS ve AT 60 20 20 00 O ON E 30 09 09 HE 1, 2 AL NIELSEN 00 TH SA 0- N 40 GR M 0 OU UN P IT IN C AL CE 00 07 07 00 30 30 WA 70 PE Ac LE 02 -0 -1 .0 L- 27 TE ti BR 51 9- 6- 00 MA 93 RS ve EX 52 20 20 RT 5 ON 53 09 09 20 1 PH NIELSEN 0 AR SA MG MA N CY M CA PS #5 UL 91 E 60 07 07 00 12 3 WA 70 NO Ac 25 -0 -1 0. L- 27 RF ti 80 9- 6- 00 MA 89 LE ve 23 20 20 0 RT 6 ET 91 09 09 R 6 PH AR HE MA NR CY Y #5 91 HE 00 04 07 01 13 6 AC 19 PE Ac MO 94 -1 -0 80 CR 40 TE ti FI 42 0- 2- 0. ED 3 RS ve L 93 20 20 00 O ON M 20 09 09 0 HE 1, 1 AL NIELSEN 00 TH SA 0 N UN GR M IT OU P NO IN MS C NA L HE 00 04 06 00 28 6 AC 19 PE Ac MO 94 -1 -0 50 CR 40 TE ti FI 42 0- 4- .0 ED 31 RS ve L 93 20 20 00 O ON M 10 09 09 HE 50 1 AL NIELSEN 0 TH SA UN N IT GR M OU NO P MS IN NA C L 60 05 05 [...] GR M IT OU P NO IN MS C NA L HE 00 09 03 03 13 6 AC 17 PE Ac MO 94 -1 -2 56 CR 11 TE ti FI 42 7- 6- 0. ED 3 RS ve L 93 20 20 00 O ON M 20 08 09 0 HE 1, 1 AL NIELSEN 00 TH SA 0 N UN GR M IT OU P NO IN MS C NA L HE 00 09 02 02 13 6 AC 17 PE Ac MO 94 -1 -2 56 CR 11 TE ti FI 42 7- 6- 0. ED 3 RS ve L 93 20 20 00 O ON M 20 08 09 0 HE 1, 1 AL NIELSEN 00 TH SA 0 N UN GR M IT OU P NO IN MS C NA L CI 55 02 02 00 14 7 WA 70 NO Ac OH 11 -0 -1 .0 L- 06 RF [...] MP #5 DS 91 TA BL ET 00 02 02 00 20 2 WA 70 NO Ac 40 -0 -1 .0 L- 06 RF ti 62 2- 2- 00 MA 26 LE ve 04 20 20 RT 9 ET 10 09 09 R 1 PH AR HE MA NR CY Y #5 91 HE 00 09 01 01 13 6 AC 17 PE Ac MO 94 -1 -3 56 CR 11 TE ti FI 42 7- 0- 0. ED 3 RS ve L 93 20 20 00 O ON M 20 08 09 0 HE 1, 1 AL NIELSEN 00 TH SA 0 N UN GR M IT OU P NO IN MS C NA L 60 01 01 01 [...] GR M IT OU P NO IN MS C NA L HE 00 09 10 00 11 6 AC 16 PE Ac MO 94 -1 -0 04 CR 04 TE ti FI 42 7- 9- 0. ED 7 RS ve L 93 20 20 00 O ON M 30 08 08 0 HE 1, 1 AL NIELSEN 70 TH SA 0 N UN GR M IT OU P NO IN MS C NA L 00 09 10 00 26 6 AC 16 PE Ac 94 -1 -0 16 CR 04 TE ti 42 7- 9- .0 ED 71 RS ve 93 20 20 00 O ON 50 08 08 HE 2 AL NIELSEN TH SA N GR M OU P IN C TR 00 08 08 00 80 20 [...] CY #5 91 00 07 08 00 98 28 AC 14 PE Ac 94 -1 -0 00 CR 98 TE ti 42 6- 1- .0 ED 7 RS ve 93 20 20 00 O ON 50 08 08 HE 3 AL NIELSEN TH SA N GR M OU P IN C 00 07 08 00 35 28 AC [...] UL 91 E 00 09 03 01 30 6 AC 11 No Ac 94 -1 -2 36 CR 95 t ti 42 7- 4- .0 ED 7 Av ve 93 20 20 00 O ai 50 07 08 HE la 2 AL bl TH e GR OU P IN C 00 09 03 01 10 6 AC [...] HOSP YRS/ INC INC > IM IIV3 10-1 141 EDEN No EDEN 9-20 MARQUEZ MARQUEZ VACC 12 CO CO INE HEAL HEAL SPLI TH TH T CENT CENT VIRU ER ER S 0.5 ML DOSA GE IM USE Procedures Procedure DOS Code Location Performer Comment BLOOD 99548 FAMILY FAMILY COUNT 7 CARE CARE COMPLETE ASSOCIATE ASSOCIATE AUTO&AUTO S S DIFRNTL WBC BLOOD 67154 FAMILY FAMILY COUNT 7 CARE CARE COMPLETE ASSOCIATE ASSOCIATE AUTO&AUTO S S DIFRNTL WBC IAADIADOO 93523 FAMILY WARE 7 CARE STREPTOCO ASSOCIATE CCUS S GROUP A IAADIADOO [id number] FAMILY YAJAIRA 7 CARE STREPTOCO ASSOCIATE CCUS S GROUP A COLLECTIO 65735 FAMILY MULBERRY N 6 CARE CAPILLARY ASSOCIATE BLOOD S SPECIMEN BLOOD 11406 FAMILY MULBERRY COUNT 6 CARE COMPLETE ASSOCIATE AUTO&AUTO S DIFRNTL WBC BLOOD 53373 [facility] COUNT 6 [facility] COMPLETE E E AUTO&AUTO [facility] [place] [address] [facility] EXTREMITY 6 [facility] NON-VASC E E [facility] REAL-TIME IMG LMTD THROMBOPL 05786 [facility] ASTIN 6 [facility] TIME E E PARTIAL [facility]OS[facility] PLASMA/WH OLE BLOOD ANTIBODY 92639 [facility] SCREEN 6 [facility] RBC EACH E E SERUM [facility] TECHNIQUE BLOOD 15972 [facility] TYPING 6 [facility] SEROLOGIC E E ABO [facility] PROTHROMB 23288 [facility] IN TIME 6 [facility]ALTHCAR E E [facility]OSPITALS H[facility] BLOOD 32757 [facility]YPING 6 [facility] SEROLOGIC E E RH (D) HOSPITALS HOSPIT[facility] COMPREHEN 78155 [facility] SIVE 6 [facility] METABOLIC E E PANEL [facility] CUL BACT 59194 COMBINED COMBINED XCPT 6 PHYSICIAN PHYSICIAN URINE S LA S LA BLOOD/STO OL AEROBIC ISOL IAADIADOO 20536 FAMILY ISAMAR 6 CARE STREPTOCO ASSOCIATE CCUS S GROUP A IAADIADOO 63467 FAMILY ISAMAR 6 CARE TAR STREPTOCO ASSOCIATE CCUS S GROUP A BLOOD 73091 FAMILY FAMILY COUNT 6 CARE CARE COMPLETE ASSOCIATE ASSOCIATE AUTO&AUTO S S DIFRNTL WBC RADEX 76569 [facility] ALL SINUSES 6 MEDICAL PARANASAL IMAGING COMPL ASS MINIMUM 3 VIEWS IAADIADOO 36353 FAMILY ISAMAR 6 CARE TAR STREPTOCO ASSOCIATE CCUS S GROUP A BLOOD 34213 FAMILY FAMILY COUNT 6 CARE CARE COMPLETE ASSOCIATE ASSOCIATE AUTO&AUTO S S DIFRNTL WBC RADEX 83593 [place] ABDOMEN 1 6 MEDICAL MALIK[place] SERV ANTEROPOS FOUNDATIO TERIOR N VIEW RADIOLOGI 78587 [place]ICKELS C 6 MEDICAL MAL[place] EXAMINATI SERV ON CHEST FOUNDATIO SINGLE N VIEW FRONTAL BLOOD 85794 FAMILY ISAMAR COUNT 6 CARE TAR COMPLETE ASSOCIATE AUTO&AUTO S DIFRNTL WBC IAADIADOO 94531 FAMILY ISAMAR 6 CARE TAR STREPTOCO ASSOCIATE CCUS S GROUP A COLLECTIO 60938 FAMILY ISAMAR N 6 CARE TAR CAPILLARY [place] B[place] [address] [facility]VA INFUSION 6 [facility] TH[facility] [place] PROPHYLAX IS/[place] [address] SH[facility]A SILVA INFUSION 6 [facility]/P INC INC ROPHYLAXI S /DX 1ST TO 1 HR UNCLASSIF [id number] SH[facility]A SILVA IED DRUGS 6 [facility] INC INC UNCLASSIF J3490 SHIRA SILVA IED DRUGS 6 [place] [address] SHIRA SILVA INFUSION 6 [facility]/P INC INC ROPHYLAXI S /DX 1ST TO 1 [place] [address] SHIRA SILVA INFUSION 6 [facility] THERAPY INC [place] [address] SHIRA SILVA INFUSION 6 [facility] THERAPY INC [place] [address] SHIRA SILVA INFUSION 6 [facility]AP[facility]/P INC INC ROPHYLAXI S /DX 1ST TO 1 HR UNCLASSIF J3490 SHIRA [facility]ILVA IED DRUGS 6 [facility] INC INC UNCLASSIF J3490 SHIRA [facility]ILVA IED DRUGS 6 [facility] [place] [address] SHIRA [facility]ILVA INFUSION 6 [facility]/P INC INC ROPHYLAXI S /DX 1ST TO 1 [place] [address] SHIRA SILVA INFUSION 6 [facility] THERAPY INC INC PROPHYLAX IS/DX EA HOUR BASIC 49331 SHIRA SILVA METABOLIC 6 [facility] PANEL INC INC CALCIUM TOTAL DRUG 04236 SHIRA SILVA SCREEN 6 [facility] [place]ITAT [place] [address] SHIRA SILVA INFUSION 6 [facility] THERAPY/P INC INC ROPHYLAXI S /DX 1ST TO 1 [place] [address] SHIRA SILVA INFUSION 6 [facility] THERAPY INC INC PROPHYLAX IS/DX EA HOUR UNCLASSIF J3490 SHIRA SILVA IED DRUGS 6 [facility] INC INC UNCLASSIF J3490 SHIRA SILVA IED DRUGS 6 [facility] [place] [address] SHIRA SILVA INFUSION 6 [facility] THERAPY/P INC INC ROPHYLAXI S /DX 1ST TO 1 [place] [address] SHIRA SILVA INFUSION 6 [facility] THERAPY INC [place] [address] SHIRA SILVA INFUSION 6 [facility] THERAPY INC [place] [address] SHIRA SILVA INF[facility]ION 6 [facility] THERAPY/P INC INC ROPHYLAXI S /DX 1ST TO 1 [place] [address] SHIRA SILVA INFUSION 6 [facility] THERAPY/P INC INC ROPHYLAXI S /DX 1ST TO [place] [address] SHIRA SILVA INFUSION 6 [facility] THERAPY INC INC PROPHYLAX IS/DX EA HOUR UNCLASSIF J3490 SHIRA SILVA IED DRUGS 6 [facility] INC INC DRUG 21261 SHIRA SILVA SCREEN 6 [facility] QUANTITAT INC INC JEF VANCOMYCI N COLLECTIO 35126 SHIRA SHIRA N VENOUS 6 [facility] BLOOD INC INC VENIPUNCT URE UNCLASSIF J3490 SHIRA SILVA IED DRUGS 6 [place] [address] SHIRA SILVA INFUSION 6 [facility] THERAPY/P INC INC ROPHYLAXI S /DX 1ST [place] [address] SHIRA SILVA INF[facility]ION 6 [facility] THERAPY INC INC PROPHYLAX IS/DX EA HOUR BLOOD 30205 FAMILY FAMILY COUNT 6 CARE CARE COMPLETE ASSOCIATE ASSOCIATE AUTO&AUTO S S DIFRNTL WBC BLOOD 35133 FAMILY FAMILY COUNT 6 CARE CARE COMPLETE ASSOCIATE ASSOCIATE AUTO&AUTO S S DIFRNTL WBC BLOOD 77812 FAMILY FAMILY COUNT 6 CARE CARE COMPLETE ASSOCIATE ASSOCIATE AUTO&AUTO S S DIFRNTL WBC BLOOD 89255 FAMILY FAMILY COUNT 6 CARE CARE COMPLETE ASSOCIATE ASSOCIATE AUTO&AUTO S S DIFRNTL WBC IAADIADOO 90541 FAMILY CROWDY 6 CARE CRI STREPTOCO ASSOCIATE CCUS S GROUP A BLOOD 49827 FAMILY FAMILY COUNT 5 CARE CARE COMPLETE ASSOCIATE ASSOCIATE AUTO&AUTO S S DIFRNTL WBC BLOOD 71341 FAMILY FAMILY COUNT 5 CARE CARE COMPLETE ASSOCIATE ASSOCIATE AUTO&AUTO S S DIFRNTL WBC ANKLE L4350 [employer] CONTROL 5 ORTHOSIS STIRRUP STYL RIGID PREFAB BLOOD 47632 FAMILY FAMILY COUNT 5 CARE CARE COMPLETE ASSOCIATE ASSOCIATE AUTO&AUTO S S DIFRNTL WBC BLOOD 07743 FAMILY FAMILY COUNT 5 CARE CARE COMPLETE ASSOCIATE ASSOCIATE AUTO&AUTO S S DIFRNTL WBC IM ADM 00213 [facility] PR[facility] ID 5 [facility] SUBQ/IM TH DEPT [facility] DE[facility] NJXS 1 [place] V[place] TDAP 84447 [facility] 7 5 [facility] YRS/> IM HLTH DEPT TH DEPT [place] CYANOCOBA 77785 COMBINED COMBINED HARDY 5 PHYSICIAN PHYSICIAN VITAMIN S LA S LA B-12 MYOGLOBIN 39933 COMBINED COMBINED 5 PHYSICIAN PHYSICIAN S LA S LA COMPREHEN 87161 COMBINED COMBINED SIVE 5 PHYSICIAN PHYSICIAN METABOLIC S LA S LA PANEL CREATINE 17081 COMBINED COMBINED KINASE MB 5 PHYSICIAN PHYSIC[place] [address] COMBINED COMBINED TROPONIN 5 PHYSICIAN PHYSICIAN QUALITATI S LA S LA VE INJECTION J7185 BIORX BIORX FACTOR 5 VIII PER IU RADEX 75772 SHIRA SILVA WRIST 5 [facility] COMPLETE INC INC MINIMUM 3 VIEWS APPLICATI 45674 [facility] PETTEY ON CAST 5 PHYSICIAN MIKA ELBOW S GROUP FINGER SHORT ARM US SOFT 01599 SHIRA SILVA TISSUE 5 [facility] HEAD & INC INC NECK REAL TIME IMGE DOCM APPLICATI 75864 SHIRA SILVA ON SHORT 5 [facility] ARM INC INC SPLINT FOREARM-H AND STATIC CAST Q4010 [facility] PETTEY SUPPLIES 5 PHYSICIAN JAM SHORT ARM S GROUP CAST ADULT FIBERGLAS S WRIST L3908 ADVANCED ADVANCED HAND 5 TECHNOLOG TECHNOLOG ORTHOSIS IES INC IES INC EXT CONTROL COCK-UP PREFAB RADEX 74936 SHIRA SILVA HAND 5 [facility] MINIMUM 3 INC INC VIEWS BLOOD 67601 FAMILY FAMILY COUNT 5 CARE CARE COMPLETE ASSOCIATE ASSOCIATE AUTO&AUTO S S DIFRNTL WBC BLOOD 64300 FAMILY FAMILY COUNT 5 CARE CARE COMPLETE ASSOCIATE ASSOCIATE AUTO&AUTO S S DIFRNTL WBC INJECTION J7185 BIORX BIORX FACTOR 5 VIII PER IU RADEX 13647 [facility] ANKLE 5 Y Y COMPLETE [facility] MINIMUM 3 VIEWS IAADIADOO 95532 FAMILY YAJAIRA 5 CARE R H STREPTOCO ASSOCIATE CCUS S GROUP A BLOOD 38244 FAMILY FAMILY COUNT 5 CARE CARE COMPLETE ASSOCIATE ASSOCIATE AUTO&AUTO S S DIFRNTL WBC INJECTION J7185 BIORX BIORX FACTOR 5 VIII PER IU INJECTION J7185 BIORX BIORX FACTOR 5 VIII PER IU SIMPLE 60554 SHIRA SILVA REPAIR 5 [facility] F/E/E/N/L INC INC /M 2.5CM/< IM ADM 81375 SHIRA SILVA PRQ ID 5 [facility] SUBQ/IM INC INC NJXS 1 VACCINE TDAP 65746 SHIRA SILVA VACCINE 7 5 [facility] YRS/> IM INC INC BLOOD 65745 FAMILY FAMILY COUNT 4 CARE CARE COMPLETE ASSOCIATE ASSOCIATE AUTO&AUTO S S DIFRNTL WBC BLOOD 51663 FAMILY FAMILY COUNT 4 CARE CARE COMPLETE ASSOCIATE ASSOCIATE AUTO&AUTO S S DIFRNTL WBC IAADIADOO 85970 FAMILY YAJAIRA 4 CARE R H INFLUENZA ASSOCIATE S BLOOD 49099 FAMILY FAMILY COUNT 4 CARE CARE COMPLETE ASSOCIATE ASSOCIATE AUTO&AUTO S S DIFRNTL WBC INJECTION J7185 BIORX BIORX FACTOR 4 VIII PER IU BLOOD 77339 FAMILY FAMILY COUNT 4 CARE CARE COMPLETE ASSOCIATE ASSOCIATE AUTO&AUTO S S DIFRNTL WBC INJECTION J7185 BIORX BIORX FACTOR 4 VIII PER IU INJECTION J7185 BIORX BIORX FACTOR 4 VIII PER IU BLOOD 72800 FAMILY FAMILY COUNT 4 CARE CARE COMPLETE ASSOCIATE ASSOCIATE AUTO&AUTO S S DIFRNTL WBC ADDITION L2210 HARJIT LOMBARDI LOWER 4 ORTHOPEDI ORTHOPEDI EXTREM CS CS DORSIFLEX ASSIST EA JOINT ADD LW L2820 HARJIT LOMBARDI EXT ORTH 4 ORTHOPEDI ORTHOPEDI SFT CS CS INTERFCE MOLD BELW KNEE ANK FT L1940 HARJIT LOMBARDI ORTHOTIC 4 ORTHOPEDI ORTHOPEDI PLASTIC/O CS CS TH MATERIAL CUSTOM PAUL ADD LOW L2330 HARJIT LOMBARDI EXT LACER 4 ORTHOPEDI ORTHOPEDI MOLD PT CS CS MDL CSTM ORTHOTIC ONLY INJECTION J7185 BIORX BIORX FACTOR 4 VIII PER IU BLOOD 53349 LISA Gordon COUNT 4 G G COMPLETE AUTO&AUTO DIFRNTL WBC BLOOD 44825 MULBERRY MULBERRY COUNT 4 NEW NEW COMPLETE AUTO&AUTO DIFRNTL WBC IAADIADOO 81659 MULBERRY MULBERRY 4 NEW NEW STREPTOCO CCUS GROUP A IAADIADOO 20913 MULBERRY MULBERRY 4 NEW NEW STREPTOCO CCUS GROUP A BLOOD 88626 MULBERRY BALBAUGH COUNT 4 NEW AND COMPLETE AUTO&AUTO DIFRNTL WBC INJECTION J7185 BIORX BIORX FACTOR 4 VIII PER IU INJECTION J7185 BIORX BIORX FACTOR 4 VIII PER IU INJECTION J7185 BIORX BIORX FACTOR 4 VIII PER IU BLOOD 01717 LISA Gordon COUNT 4 G G COMPLETE AUTO&AUTO DIFRNTL WBC NONINVASI 38860 LISA Gordon VE 4 G G EAR/PULSE OXIMETRY SINGLE DETER COLLECTIO 06867 LISA Gordon N 4 G G CAPILLARY BLOOD SPECIMEN ADMN SET A7003 YOUR YOUR SM VOL 4 PHARMACY PH[facility]Y [facility] PNEUMAT NEBULIZR DISPBL NEBULIZER E0570 HOLD[facility] HATCH WITH 4 HOME HOME COMPRESSO MEDICAL MEDICAL R EQUIPME EQUIPME RADIOLOGI 11390 SHIRA SILVA C EXAM 4 [facility] CHEST 2 INC INC VIEWS FRONTAL&L ATERAL NONINVASI 01184 FAMILY FAMILY VE 3 CARE CARE EAR/PULSE ASSOCIATE ASSOCIATE OXIMETRY S S SINGLE DETER BLOOD 98463 MULBERRY MULBERRY COUNT 3 NEW NEW COMPLETE AUTO&AUTO DIFRNTL WBC BLOOD 99554 FAMILY LISA COUNT 3 CARE PAUL COMPLETE ASSOCIATE AUTO&AUTO S DIFRNTL WBC COLLECTIO 13695 FAMILY LISA N 3 CARE PAUL CAPILLARY ASSOCIATE BLOOD [...] NON-INS RX INFUS CATH PER WK RADEX 76094 [facility] 3 Y Y [facility] MINIMUM 3 VIEWS RADEX 70088 SYL HAYESCHER SPINE 3 MARA MARA LUMBOSACR AL 2/3 VIEWS RADEX 36864 SHIRA SILVA SPINE 3 [facility] LUMBOSACR INC INC AL MINIMUM 4 VIEWS URNLS DIP 22288 LISA J LISA J 3 G G STICK/TAB LET RGNT NON-AUTO W/O MICRSCP SUPPLIES A4221 BIORX BIORX FOR MAINT 3 NON-INS RX INFUS CATH PER WK INJECTION J7185 BIORX BIORX FACTOR 3 VIII PER IU ORTHOTIC 96675 SHIRA SILVA MGMT&DAREN 3 [facility] NJ UXTR INC INC LXTR&/TRN K EA 15 ELB ORTH L3760 ADVANCED ADVANCED W/ADJ 3 TECHNOLOG TECHNOLOG LOCK JNT IES INC IES INC PRFAB W/FIT&ADJ TYPE SUPPLIES A4221 BIORX BIORX FOR MAINT 3 NON-INS RX INFUS CATH PER WK INJ AHF/ J7186 BIORX BIORX VWF CMPLX 3 PER FACTOR VIII IU BLOOD 02370 MULBERRY MULBERRY COUNT 3 NEW NEW COMPLETE AUTO&AUTO DIFRNTL WBC SUPPLIES A4221 BIORX BIORX FOR MAINT 2 NON-INS RX INFUS CATH PER WK INJ AHF/ J7186 BIORX BIORX VWF CMPLX 2 PER FACTOR VIII IU INJ AHF/ J7186 BIORX BIORX VWF CMPLX 2 PER FACTOR VIII IU RADEX 79247 [place] CHEPE ELBOW 2 MEDICAL AMBROSIO COMPLETE SERV MINIMUM 3 FOUNDATIO VIEWS N IIV3 15362 SHIRA SHIRA VACCINE [address] [facility] VIRUS 0.5 ML DOSAGE IM USE E-STIM G0283 SHIRA SILVA 1/> AREAS 2 [facility] OTH THAN INC INC WND CARE PART TX PLAN APPLICATI 49495 SHIRA SILVA ON 2 [facility] MODALITY INC INC 1/> AREAS HOT/COLD PACKS MANUAL 32389 SHIRA SILVA THERAPY 2 [facility] TQS 1/> INC INC REGIONS EACH 15 MINUTES APPL 03873 SHIRA SILVA MODALITY 2 [facility] 1/> AREAS INC INC ULTRASOUN D EA 15 MIN INJ AHF/ J7186 BIORX BIORX VWF CMPLX 2 PER FACTOR VIII IU APPL 05432 SHIRA SILVA MODALITY 2 [facility] 1/> AREAS INC INC ULTRASOUN D EA 15 MIN MANUAL 45818 SHIRA SILVA THERAPY 2 [facility] TQS 1/> INC INC REGIONS EACH 15 MINUTES APPLICATI 14326 SHIRA SILVA ON 2 [facility] MODALITY INC INC 1/> AREAS HOT/COLD PACKS E-STIM G0283 SHIRA SILVA 1/> AREAS 2 [facility] OTH THAN INC INC WND CARE PART TX PLAN INJ AHF/ J7186 BIORX BIORX VWF CMPLX 2 PER FACTOR VIII IU APPL 82013 SHIRA SILVA MODALITY 2 [facility] 1/> AREAS INC INC ULTRASOUN D EA 15 MIN MANUAL 66901 SHIRA ISLVA THERAPY 2 [facility] TQS 1/> INC INC REGIONS EACH 15 MINUTES E-STIM G0283 SHIRA SILVA 1/> AREAS 2 [facility] OTH THAN INC INC WND CARE PART TX PLAN APPLICATI 68844 SHIRA SILVA ON 2 [facility] MODALITY INC INC 1/> AREAS HOT/COLD PACKS APPLICATI 88764 SHIRA SHIRA ON 2 [facility] MODALITY INC INC 1/> AREAS HOT/COLD PACKS E-STIM G0283 SHIRA SHIRA 1/> AREAS 2 [facility] OTH THAN INC INC WND CARE PART TX PLAN MANUAL 49911 SHIRA SILVA THERAPY 2 [facility] TQS 1/> INC INC REGIONS EACH 15 MINUTES APPL 47437 SHIRA SILVA MODALITY 2 [facility] 1/> AREAS INC INC ULTRASOUN D EA 15 MIN APPL 03528 SHIRA SHIRA MODALITY 2 [facility] 1/> AREAS INC INC ULTRASOUN D EA 15 MIN MANUAL 48005 SHIRA SILVA THERAPY 2 [facility] TQS 1/> INC INC REGIONS EACH 15 MINUTES E-STIM G0283 SHIRA SILVA 1/> AREAS 2 [facility] OTH THAN INC INC WND CARE PART TX PLAN APPLICATI 11135 SHIRA SILVA ON 2 [facility] MODALITY INC INC 1/> AREAS HOT/COLD PACKS APPLICATI 33616 SHIRA SHIRA ON 2 [facility] MODALITY INC INC 1/> AREAS HOT/COLD PACKS E-STIM G0283 SHIRA SHIRA 1/> AREAS 2 [facility] OTH THAN INC INC WND CARE PART TX PLAN THERAPEUT 79779 SHIRA SHIRA IC PX 1/> 2 [facility] AREAS INC INC EACH 15 MIN EXERCISES MANUAL 12983 SHIRA SILVA THERAPY 2 [facility] TQS 1/> INC INC REGIONS EACH 15 MINUTES APPL 75929 SHIRA SILVA MODALITY 2 [facility] 1/> AREAS INC INC ULTRASOUN D EA 15 MIN INJ AHF/ J7186 BIORX BIORX VWF CMPLX 2 PER FACTOR VIII IU SEDIMENTA 55557 UNIVERSIT UNIVERSIT TION RATE 2 Y Y RBC HOSPITAL HOSPITAL AUTOMATED THROMBOPL 19370 [facility] ASTIN 2 Y Y TIME HOSPITAL HOSPITAL PARTIAL PLASMA/WH OLE BLOOD PROTHROMB 14707 [facility] IN TIME 2 Y Y HOSPITAL HOSPITAL BLOOD 96832 [facility] COUNT 2 Y Y COMPLETE [facility] AUTO&AUTO DIFRNTL WBC THER 42559 [facility] PROPH/DX 2 Y Y NJX IV HOSPITAL HOSPITAL PUSH SINGLE/1S T SBST/DRUG THERAPEUT 53235 [facility] IC 2 Y Y INJECTION HOSPITAL [facility] IV PUSH EACH NEW DRUG INJECTION J2270 [facility] MORPHINE 2 Y Y SULFATE [facility] HOSPITAL UP TO 10 MG RADEX 78164 [place] MERHAR ELBOW 2 MEDICAL GAR COMPLETE SERV MINIMUM 3 FOUNDATIO VIEWS N COLLECTIO 00728 [facility] N VENOUS 2 Y Y BLOOD [facility] VENIPUNCT URE INJECTION J2405 [facility] 2 Y Y [facility] HCL PER 1 MG C-REACTIV 13068 [facility] E PROTEIN 2 Y Y HOSPITAL [facility] APPLICATI 42071 SHIRA SILVA ON 2 [facility] MODALITY INC INC 1/> AREAS HOT/COLD PACKS MANUAL 47428 SHIRA SILVA THERAPY 2 [facility]P TQS 1/> INC INC REGIONS EACH 15 MINUTES PHYSICAL 47959 SHIRA HEARDON THERAPY 2 [facility] HOSP EVALUATIO INC INC N ARTHROSCO 16110 CAM LEVY PY ELBOW 2 [facility] SURGICAL SYNOVECTO MY COMPLETE INJECTION J2270 [facility] MORPHINE 2 Y Y SULFATE [facility] UP TO 10 MG INJECTION J2250 [facility] 2 Y Y [facility] HCL PER 1 MG ARTHROSCO 35606 CAM LEVY PY ELBOW 2 [facility] SURGICAL DEBRIDEME NT EXTENSIVE INJECTION J2405 [facility] 2 Y Y [facility] HCL PER 1 MG BLOOD 95700 [facility] COUNT 2 Y Y COMPLETE [facility] AUTOMATED UNCLASSIF J3490 [facility] IED DRUGS 2 Y Y [facility] J7120 [facility] LACTATE 2 Y Y [facility] UP TO 1000 CC INJECTION J1170 [facility] 2 Y Y HYDROMORP [facility] KADY UP TO 4 MG INJECTION J3010 [facility] FENTANYL 2 Y Y CITRATE [facility] HOSPITAL 0.1 MG INJECTION J2710 [facility] 2 Y Y NEOSTIGMI [facility] NE METHYLSUL FATE UP TO 0.5 MG PROTHROMB 07056 [facility] IN TIME 2 Y Y HOSPITAL HOSPITAL ARTHRT 95814 CAM LEVY ELBOW 2 [facility] CAPSULAR EXCISION CAPSULAR RLS SPX THROMBOPL 87808 [facility] ASTIN 2 Y Y TIME HOSPITAL [facility] PARTIAL PLASMA/WH OLE BLOOD ANESTHESI 29752 [place] REILLY A ELBOW 2 [facility] KING JOINT ANESTHESI DIAGNOSTI A PSC C ARTHROSCO PIC PARTIAL 98470 CAM LEVY EXCISION 2 [facility] [place] [address] [facility] SURG 2 Y OF ERIC PATHOLOGY [place] [facility] GROSS&SONU ROSCOPIC EXAM INJ [facility]/ J7186 BIORX BIORX VWF CMPLX 2 PER FACTOR VIII IU INJ [facility]/ J7186 BIORX BIORX VWF CMPLX 2 PER FACTOR VIII IU FACTOR J7190 BIORX BIORX VIII 2 ANTIHEMOP HILIC FACTOR HUMAN PER IU RADEX 09811 [place] ELBOW 2 MEDICAL AMBROSIO COMPLETE SERV MINIMUM 3 FOUNDATIO VIEWS N FACTOR J7190 BIORX BIORX VIII 2 ANTIHEMOP HILIC FACTOR HUMAN PER IU INJ [facility]/ J7186 BIORX BIORX VWF CMPLX 2 PER FACTOR VIII IU BLOOD 32491 [facility] WARE COUNT 2 [place] COMPLETE AUTO&AUTO DIFRNTL WBC INJ F/ J7186 BIORX BIORX VWF CMPLX 2 PER FACTOR VIII IU PROTHROMB 62803 LISA Gorodn IN TIME 2 BLOOD 75356 LIAS Gordon COUNT 2 COMPLETE AUTO&AUTO DIFRNTL WBC RADIOLOGI 16290 SHIRA Desai EXAM 2 [facility] CHEST 2 INC INC VIEWS FRONTAL&L ATERAL TRANSFERA 98590 LISA Heidi HANA ANT SE 2 ASPARTATE AMINO AST SGOT TRANSFERA 85890 LISA Gordon SE 2 ALANINE AMINO ALT SGPT SUPPLIES A4221 BIORX BIORX FOR MAINT 2 NON-INS RX INFUS CATH PER WK FACTOR J7190 BIORX BIORX VIII 2 ANTIHEMOP HILIC FACTOR HUMAN PER IU INJ AHF/ J7186 BIORX BIORX VWF CMPLX 2 PER FACTOR VIII IU INJ AHF/ J7186 BIORX BIORX VWF CMPLX 2 PER FACTOR VIII IU FACTOR J7190 BIORX BIORX VIII 2 ANTIHEMOP HILIC FACTOR HUMAN PER IU BLOOD 43188 CHAZ WARE COUNT 2 [place] COMPLETE AUTO&AUTO DIFRNTL WBC CULTURE 97498 COMBINED COMBINED BACTERIAL 2 PHYSICIAN PHYSICIAN S LA S LA QUANTTATI VE COLONY COUNT URINE URNLS DIP 86652 CHAZ OSORIOOND 2 [place] STICK/TAB LET RGNT NON-AUTO W/O MICRSCP LOCM Q9967 SHIRA SILVA 300-399 2 [facility] MG/ML INC INC IODINE CONCENTRA TION PER ML COMPREHEN 69688 SHIRA SILVA SIVE 2 [facility] METABOLIC INC INC PANEL URNLS DIP 69542 SHIRA SILVA 2 [facility] STICK/TAB INC INC LET REAGENT AUTO MICROSCOP Y BLOOD 01752 SHIRA SILVA COUNT 2 [facility] COMPLETE INC INC AUTO&AUTO DIFRNTL WBC PROTHROMB 26925 SHIRA RINALDI IN TIME 2 [facility] JR THO INC THROMBOPL 79329 SHIRA SILVA ASTIN 2 [facility] TIME INC INC PARTIAL PLASMA/[place] [address] SYL SYL ABDOMEN & 2 MARA MARA PELVIS W/CONTRAS T MATERIAL FACTOR J7190 BIORX BIORX VIII 2 ANTIHEMOP HILIC FACTOR HUMAN PER IU BLOOD 60991 FAMILY FAMILY COUNT 2 CARE CARE COMPLETE ASSOCIATE ASSOCIATE AUTO&AUTO S S DIFRNTL WBC FACTOR J7190 BIORX BIORX VIII 1 ANTIHEMOP HILIC FACTOR HUMAN PER IU ORTHOTIC 24718 SHIRA SILVA MGMT&DAREN 1 [facility] UXTR INC INC LXTR&/TRN K EA 15 ANK FT L1906 ADVANCED ADVANCED ORTHOS 1 TECHNOLOG TECHNOLOG MX-LIG IES INC IES INC ANK SUPT PREFB OFF SHELF BLOOD 80088 FAMILY FAMILY COUNT 1 CARE CARE COMPLETE ASSOCIATE ASSOCIATE AUTO&AUTO S S DIFRNTL WBC BLOOD 35781 FAMILY FAMILY COUNT 1 CARE CARE COMPLETE ASSOCIATE ASSOCIATE AUTO&AUTO S S DIFRNTL WBC IAADIADOO 86738 FAMILY MULBERRY 1 CARE NEW STREPTOCO ASSOCIATE CCUS S GROUP A IAADIADOO 45298 FAMILY MULBERRY 1 CARE NEW STREPTOCO ASSOCIATE CCUS S GROUP A BLOOD 96079 FAMILY FAMILY COUNT 1 CARE CARE COMPLETE ASSOCIATE ASSOCIATE AUTO&AUTO S S DIFRNTL WBC BLOOD 94378 SHIRA SILVA OCCULT 1 [facility] PEROXIDAS INC INC E ACTV QUAL FECES 1-3 [place] [address] SHIRA SILVA CLOSTRIDI 1 [facility] [place] [address] SHIRA SILVA ROTAVIRUS 1 [facility] INC INC IAADIADOO 42122 FAMILY YAJAIRA 1 CARE R H STREPTOCO ASSOCIATE CCUS S GROUP A IAADIADOO 63265 FAMILY LISA J 1 CARE STREPTOCO ASSOCIATE CCUS S GROUP A RADIOLOGI 35015 IOWA SYL C EXAM 0 MEDICAL MARA CHEST 2 IMAGING VIEWS ASS FRONTAL&L ATERAL BLOOD 42101 FAMILY MULBERRY COUNT 0 CARE NEW COMPLETE ASSOCIATE AUTO&AUTO S DIFRNTL WBC IAADIADOO 56485 FAMILY MULBERRY 0 CARE NEW STREPTOCO ASSOCIATE CCUS S GROUP A ARTHROSCO 12418 MATEO RÍOS PY ANKLE 0 MEDICAL ALLEN SURGICAL SERV DEBRIDEME FOUNDATIO NT LIMITED ANESTHESI 59020 MATEO MAY A 0 MEDICAL JOSH ARTHROSCO SERVICES PIC PROCEDURE ANKLE & FOOT OTH LOCAL 8087 [facility] 0 Y Y EXCISION/ HOSPITAL HOSPITAL DESTRUCTI ON LESION ANK JOINT IAADIADOO 19697 FAMILY LISA J 0 CARE STREPTOCO ASSOCIATE CCUS S GROUP A BLOOD 58202 FAMILY FAMILY COUNT 0 CARE CARE COMPLETE ASSOCIATE ASSOCIATE AUTO&AUTO S S DIFRNTL WBC RADEX 14057 [facility] ANKLE 0 Y Y [facility] MINIMUM 3 VIEWS 25 [id number] LAB SHANI LAB SHANI HYDROXY 0 AMERIC AMERIC INCLUDES HOLDING HOLDING FRACTIONS IF PERFORMED THERAPEUT 76221 [facility] IC PX 1/> 0 Y Y [facility] EACH 15 MIN EXERCISES PHYSICAL 45841 [facility] 9 [facility] THERAPEUT 45313 SHIRA SILVA IC PX 1/> 9 [facility] AREAS INC INC EACH 15 MIN EXERCISES APPLICATI 27868 [facility] SILVA ON 9 [facility] MODALITY INC INC 1/> AREAS HOT/COLD PACKS APPL 61545 SH[facility] SILVA MODALITY 9 [facility] 1/> AREAS INC INC ULTRASOUN D EA 15 MIN APPL 75367 [facility] SILVA MODALITY 9 [facility] 1/> AREAS INC INC ELEC STIMJ UNATTENDE D APPL 87838 [facility] SILVA MODALITY 9 [facility] 1/> AREAS INC INC ULTRASOUN D EA 15 MIN APPL 04184 [facility] SILVA MODALITY 9 [facility] 1/> AREAS INC INC ELEC STIMJ UNATTENDE D APPLICATI 33597 [facility] SILVA ON 9 [facility] MODALITY INC INC 1/> AREAS HOT/COLD PACKS THERAPEUT 46428 SHIRA SILVA IC PX 1/> 9 [facility] AREAS INC INC EACH 15 MIN EXERCISES RADEX 91784 [place] [facility], [place] 9 MEDICAL [place] COMPLETE IMAGING MINIMUM 3 ASSOCIATE VIEWS S THERAPEUT 81450 SHIRA SILVA IC PX 1/> 9 [facility] AREAS INC INC EACH 15 MIN EXERCISES APPLICATI 94867 SH[facility]A SILVA ON 9 [facility] MODALITY INC INC 1/> AREAS HOT/COLD PACKS APPL 06670 SHIRA HEARDON MODALITY 9 [facility] 1/> AREAS INC INC ULTRASOUN D EA 15 MIN APPL 15978 SH[facility]A SILVA MODALITY 9 [facility] 1/> AREAS INC INC ELEC STIMJ UNATTENDE D APPL 16112 SHIRA SILVA MODALITY 9 [facility] 1/> AREAS INC INC ULTRASOUN D EA 15 MIN APPL 03479 SH[facility]A SILVA MODALITY 9 [facility] 1/> AREAS INC INC ELEC STIMJ UNATTENDE D APPLICATI 80814 SH[facility]A SILVA ON 9 [facility] MODALITY INC INC 1/> AREAS HOT/COLD PACKS BLOOD 84504 FAMILY MULBERRY, COUNT 9 CARE ALEKSANDR Walker COMPLETE ASSOCIATE AUTO&AUTO S DIFRNTL WBC PHYSICAL 29666 SH[facility] SILVA THERAPY 9 [facility] EVALUATIO INC INC N APPL 08821 SH[facility] SILVA MODALITY 9 [facility] 1/> AREAS INC INC IONTOPHOR ESIS EA 15 MIN BLOOD 73547 FAMILY YAJAIRA, COUNT 9 CARE Deneen BALES COMPLETE ASSOCIATE AUTO&AUTO S DIFRNTL WBC INITIAL 85748 [facility] OBSERVATI 9 Y Y ON HOSPITAL HOSPITAL CARE/DAY 30 MINUTES INJECTION J2997 [facility] 9 Y [facility] RECOMBINA NT 1 MG INJECTION J3010 [facility] FENTANYL 9 Y Y [facility] 0.1 MG UNCLASSIF J3490 [facility] IED DRUGS 9 Y HANS HOSPITAL INJECTION J2175 [facility] 9 Y Y [facility] E HCL PER 100 MG INJECTION J2795 [facility] 9 Y Y [facility] NE HYDROCHLO RIDE 1 MG EXCISION 39109 MATEO CAM, RADIAL 9 MEDICAL [facility] HEAD SERV FOUNDATIO RAD RESCJ 11403 MATEO AVIMOI CAPSL 9 [facility] TISS&HTRT SERV PC BONE FOUNDATIO ELBW CONTRCT ANESTHESI 06845 MATEO GARRISON, A 9 MEDICAL JULIETTE C OPEN/SURG SERVICES ARTHRS RADICAL PROC ELBOW INJECTION J2270 [facility] MORPHINE 9 Y Y [facility] UP TO 10 MG ARTHROSCO 27652 [facility] PY ELBOW 9 Y Y SURGICAL [facility] SYNOVECTO MY COMPLETE UNLISTED 11718 [facility] PROCEDURE 9 Y Y [facility] ARTHROSCO PY INJECTION J2405 [facility] 1 MG DECALCIFI 31643 [facility] CATION 9 Y [place] [address] [facility] SURG 9 Y Y PATHOLOGY [facility] GROSS&SONU ROSCOPIC EXAM FACTOR 01652 [facility] INHIBITOR 9 Y Y TEST [facility] BLOOD 87711 [facility] COUNT 9 Y Y [facility] AUTO&AUTO DIFRNTL WBC RADIOLOGI 25644 [facility] [facility] Giselle MELGOZA EXAM 9 Y OF [facility] CHEST 2 [facility] FRONTAL&L ATERAL INSJ PRPH 42735 [facility] CVC W/O 9 Y Y SUBQ HOSPITAL HOSPITAL PORT/AMPOULE SEALER AGE 6 YR/> RADEX 81316 [facility] ELBOW 2 9 Y Y [facility] BLOOD 67267 FAMILY LISA, J COUNT 9 CARE G COMPLETE ASSOCIATE AUTO&AUTO S DIFRNTL WBC APPL 04054 [facility] SILVA MODALITY 9 [facility] 1/> AREAS INC INC ULTRASOUN D EA 15 MIN THERAPEUT 13760 SHIRA SILVA IC PX 1/> 9 [facility] AREAS INC INC EACH 15 MIN EXERCISES APPL 70993 SH[facility]A SILVA MODALITY 9 [facility] 1/> AREAS INC INC IONTOPHOR ESIS EA 15 MIN APPL 05-18-200 54031 [facility] SILVA MODALITY 9 [facility] 1/> AREAS INC INC IONTOPHOR ESIS EA 15 MIN PHYSICAL 92050 SH[facility] SILVA THERAPY 9 [facility] EVALUATIO INC INC N THERAPEUT 24084 SHIRA SILVA IC PX 1/> 9 [facility] AREAS INC INC EACH 15 MIN EXERCISES APPL 55426 SH[facility]A SILVA MODALITY 9 [facility] 1/> AREAS INC INC ULTRASOUN D EA 15 MIN MANUAL 60348 SH[facility]A SILVA THERAPY 9 [facility] TQS 1/> INC INC REGIONS EACH 15 MINUTES RADIOLOGI 47193 Giselle RILEY 9 MEDICAL SERENITY N EXAMINATI SERV ON KNEE FOUNDATIO 1/2 VIEWS RADIOLOGI 82378 Giselle RILEY 9 MEDICAL SERENITY N EXAMINATI SERV ON KNEE 3 [place] [address] [address] Heidi STREETERT LOWER 9 SYL MARSHALL EXTREM W/O CONTRAST MATRL BLOOD 45708 FAMILY MULBERRY, COUNT 9 CARE ALEKSANDR T COMPLETE ASSOCIATE AUTO&AUTO S DIFRNTL WBC COLLECTIO 31623 FAMILY MULBERRY, N 9 CARE ALEKSANDR T CAPILLARY ASSOCIATE BLOOD S SPECIMEN RADIOLOGI 38411 [facility] SILVA C 9 [facility] EXAMINATI INC INC ON KNEE 3 VIEWS BLOOD 87974 FAMILY MULBERRY, COUNT 9 CARE ALEKSANDR T COMPLETE ASSOCIATE AUTO&AUTO S DIFRNTL WBC COLLECTIO 78077 FAMILY MULBERRY, N 9 CARE ALEKSANDR T CAPILLARY ASSOCIATE BLOOD S SPECIMEN RADEX 50671 UNIVERSIT DIPTI, ELBOW 2 9 Y OF JENELLE A VIEWS [facility] THERAPEUT 92438 SHIRA SILVA IC PX 1/> 9 [facility] AREAS INC INC EACH 15 MIN EXERCISES APPLICATI 37208 SH[facility]A SILVA ON 9 [facility] MODALITY INC INC 1/> AREAS HOT/COLD PACKS APPL 18984 SH[facility]A SILVA MODALITY 9 [facility] 1/> AREAS INC INC ELEC STIMJ UNATTENDE D APPL 91085 SH[facility]A SILVA MODALITY 9 [facility] 1/> AREAS INC INC ELEC STIMJ UNATTENDE D APPLICATI 47273 [facility]A SILVA ON 9 [facility] MODALITY INC INC 1/> AREAS HOT/COLD PACKS THERAPEUT 49372 SHIRA SILVA IC PX 1/> 9 [facility] AREAS INC INC EACH 15 MIN EXERCISES URNLS DIP 47303 FAMILY YAJAIRA, 9 CARE R NII STICK/TAB ASSOCIATE LET RGNT S NON-AUTO W/O MICRSCP CULTURE 67015 COMBINED COMBINED BACTERIAL 9 PHYSICIAN PHYSICIAN S LAB S LAB QUANTTATI VE COLONY COUNT URINE URNLS DIP 17843 FAMILY YAJAIRA, 9 CARE R NII STICK/TAB ASSOCIATE LET RGNT S NON-AUTO W/O MICRSCP THERAPEUT 25960 SHIRA SILVA IC PX 1/> 9 [facility] AREAS INC INC EACH 15 MIN EXERCISES APPLICATI 77843 SHIRA SILVA ON 9 [facility] MODALITY INC INC 1/> AREAS HOT/COLD PACKS APPL 91578 SHIRA SILVA MODALITY 9 [facility] 1/> AREAS INC INC ELEC STIMJ UNATTENDE D THERAPEUT 10237 SHIRA SILVA IC PX /> 9 [facility] AREAS INC INC EACH 15 MIN EXERCISES MANUAL 72150 SHIRA SILVA THERAPY 9 [facility] TQS 1/> INC INC REGIONS EACH 15 MINUTES MANUAL 27713 SHIRA SILVA THERAPY 9 [facility] TQS 1/> INC INC REGIONS EACH 15 MINUTES THERAPEUT 38484 SHIRA SILVA IC PX 1/> 9 [facility] AREAS INC INC EACH 15 MIN EXERCISES APPL 85213 SHIRA SILVA MODALITY 9 [facility] 1/> AREAS INC INC ELEC STIMJ UNATTENDE D APPLICATI 67869 SHIRA SILVA ON 9 [facility] MODALITY INC INC 1/> AREAS HOT/COLD PACKS THERAPEUT 05753 SHIRA SILVA IC PX 1/> 9 [facility] AREAS INC INC EACH 15 MIN EXERCISES MANUAL 78711 SHIRA SILVA THERAPY 9 [facility] TQS 1/> INC INC REGIONS EACH 15 MINUTES THERAPEUT 20341 SHIRA SILVA IC PX 1/> 9 [facility] AREAS INC INC EACH 15 MIN EXERCISES PHYSICAL 20096 SHIRA SILVA THERAPY 9 [facility] EVALUATIO INC INC N ANKLE L1930 PROSTHETI PROSTHETI FOOT 8 C&ORTHOTI C&ORTHOTI ORTHOTIC C C PLASTIC/O ASSOCIATE ASSOCIATE MATL S,[employer] PREFAB RADEX 45731 [facility] 8 Y Y [facility] MINIMUM 3 VIEWS HOSPITAL 23190 [facility], DISCHARGE 8 [facility] DAY SERV MANAGEMEN FOUNDATIO T 30 MIN/< SBSQ 67788 [facility] 8 [facility] CARE/DAY [place] [address] [place] [address] [facility], ABDOMEN 8 MEDICAL MIKEY W/CONTRAS SERV T FOUNDATIO MATERIAL INITIAL 33008 SC OLY INPATIENT 8 MEDICAL , JANAE CONSULT SERV R NEW/ESTAB FOUNDATIO PT [address] PELVIS 53563 [facility], 8 MEDICAL MIKEY W/CONTRAS SERV T FOUNDATIO MATERIAL INFUSION 0011 [facility] 8 Y Y [facility] IN JOSE INITIAL 72606 [facility] 8 [facility] CARE/DAY SERV 70 FOUNDATIO MINUTES BLOOD 67383 FAMILY YAJAIRA, COUNT 8 CARE R NII COMPLETE ASSOCIATE AUTO&[place] [address] SH[facility] SILVA ABDOMEN 8 [facility] W/CONTRAS INC INC T MATERIAL 3D 72265 SHIRA HEARDON RENDERING 8 [facility] INC INC W/INTERP& POSTPROC DIFF WORK STATION CT PELVIS 09610 [facility] SILVA 8 [facility] W/CONTRAS INC INC T MATERIAL BLOOD 15606 FAMILY MULBERRY, COUNT 8 CARE ALEKSANDR Walker COMPLETE ASSOCIATE AUTO&AUTO S DIFRNTL WBC BLOOD 13172 Heidi REDD COUNT 8 CARE G COMPLETE ASSOCIATE AUTO&AUTO S DIFRNTL WBC THROMBOPL 61704 COMBINED COMBINED ASTIN 8 PHYSICIAN PHYSICIAN TIME S LAB S LAB PARTIAL PLASMA/WH OLE BLOOD PROTHROMB 50470 Heidi REDD IN TIME 8 CARE G ASSOCIATE S Encounters Encounter Start End Date Code Location Performer Type Date OFFICE 16134 FAMILY YAJAIRA OUTPATIEN 7 7 CARE T VISIT ASSOCIATE 15 S MINUTES OFFICE 37404 FAMILY WARE OUTPATIEN 7 7 CARE T VISIT ASSOCIATE 15 S MINUTES OFFICE 42961 FAMILY YAJAIRA OUTPATIEN 7 7 CARE T VISIT ASSOCIATE 15 S MINUTES OFFICE 66855 FAMILY MULBERRY OUTPATIEN 6 6 CARE T VISIT ASSOCIATE 15 S MINUTES OFFICE 10304 FAMILY YAJAIRA OUTPATIEN 6 6 CARE T VISIT ASSOCIATE 15 S MINUTES EMERGENCY 83196 6 6 [facility] DEPARTMEN E T VISIT HOSPITALS HIGH/URGE NT SEVERITY EMERGENCY 68923 [facility] 6 6 MEDICAL DEPARTMEN SERV T VISIT FOUNDATIO LOW/MODER N SEVERITY HOSPITAL - 6 6 [facility] OUTPATIEN E T HOSPITALS OFFICE 61823 [facility] HARP OUTPATIEN 6 6 PHYSICIAN WENDY T NEW 10 S GROUP MINUTES OFFICE 95433 FAMILY ISAMAR OUTPATIEN 6 6 CARE T VISIT ASSOCIATE 15 S MINUTES OFFICE 16473 FAMILY ISAMAR OUTPATIEN 6 6 CARE TAR T VISIT ASSOCIATE 15 S MINUTES OFFICE 16977 FAMILY ISAMAR OUTPATIEN 6 6 CARE TAR T VISIT ASSOCIATE 15 S MINUTES OFFICE 28128 FAMILY CROWDY OUTPATIEN 6 6 CARE CRI T VISIT ASSOCIATE 15 S MINUTES OFFICE 73403 FAMILY MULBERRY OUTPATIEN 6 6 CARE NEW T VISIT ASSOCIATE 15 S MINUTES OFFICE 06407 FAMILY ISAMAR OUTPATIEN 6 6 CARE TAR T VISIT ASSOCIATE 15 S MINUTES OFFICE 94088 FAMILY LISA OUTPATIEN 6 6 CARE PAUL T VISIT ASSOCIATE 15 S MINUTES OFFICE 43048 FAMILY ISAMAR OUTPATIEN 6 6 CARE TAR T VISIT ASSOCIATE 15 S MINUTES OFFICE 77975 FAMILY LISA OUTPATIEN 6 6 CARE PAUL T VISIT ASSOCIATE 15 S MINUTES OFFICE 55453 FAMILY LISA OUTPATIEN 6 6 CARE PAUL T VISIT ASSOCIATE 15 S MINUTES [facility]OSPITAL [facility]52 [place] ECKERLINE 6 6 MEDICAL JR [facility] SERV T VISIT FOUNDATIO MODERATE N SEVERITY OFFICE 61462 FAMILY YAJAIRA OUTPATIEN 6 6 CARE R H T VISIT ASSOCIATE 15 S MINUTES OFFICE 57971 FAMILY ISAMAR OUTPATIEN 6 6 CARE TAR T VISIT ASSOCIATE 15 S MINUTES EMERGENCY 96840 YAYA PAZ 6 6 PHYSICIAN U [facility] S, [facility] T VISIT MODERATE SEVERITY OFFICE 40861 FAMILY LISA OUTPATIEN 6 6 CARE PAUL T VISIT ASSOCIATE 10 S MINUTES HOSPITAL SHIRA - 6 6 [facility]EN [facility] SHIRA - 6 6 [facility]PATIEN [facility] SHIRA - 6 6 [facility]EN [facility] SHIRA - 6 6 [facility] OUTPATIEN [facility] T OFFICE 05082 FAMILY LISA OUTPATIEN 6 6 CARE PAUL T VISIT ASSOCIATE 15 S MINUTES HOSPITAL SHIRA - 6 6 [facility] SHIRA - 6 6 [facility]PATIEN [facility] HOSPITAL SHIRA - 6 6 [facility]PATIEN [facility] SHIRA - 6 6 [facility] OUTPATIEN INC HOSPITAL SHIRA - 6 6 [facility] OUTPATIEN INC OFFICE 25701 FAMILY LISA OUTPATIEN 6 6 CARE PAUL T VISIT ASSOCIATE 15 S MINUTES EMERGENCY 72479 YAYA PAZ 6 6 PHYSICIAN Julita [facility] S, [facility] T VISIT HIGH/URGE NT SEVERITY OFFICE 56245 FAMILY LISA OUTPATIEN 6 6 CARE PAUL T VISIT ASSOCIATE 15 S MINUTES EMERGENCY 56587 YAYA MARTINEZ, 6 6 PHYSICIAN JR [facility] S, [facility] T VISIT HIGH/URGE NT SEVERITY OFFICE 74323 FAMILY YAJAIRA OUTPATIEN 6 6 CARE R H T VISIT ASSOCIATE 15 S MINUTES OFFICE 76736 FAMILY CROWDY OUTPATIEN 6 6 CARE CRI T VISIT ASSOCIATE 15 S MINUTES OFFICE 24432 FAMILY CROWDY OUTPATIEN 6 6 CARE CRI T VISIT ASSOCIATE 15 S MINUTES OFFICE 37081 FAMILY YAJAIRA OUTPATIEN 6 6 CARE R H T VISIT ASSOCIATE 15 S MINUTES OFFICE 00468 FAMILY CROWDY OUTPATIEN 6 6 CARE CRI T VISIT ASSOCIATE 15 S MINUTES OFFICE 58049 FAMILY LISA OUTPATIEN 5 5 CARE PAUL T VISIT ASSOCIATE 15 S MINUTES OFFICE 13439 FAMILY CROWDY OUTPATIEN 5 5 CARE CRI T VISIT ASSOCIATE 15 S MINUTES OFFICE 87015 FAMILY YAJAIRA OUTPATIEN 5 5 CARE R H T VISIT ASSOCIATE 15 S MINUTES OFFICE 14175 FAMILY CROWDY OUTPATIEN 5 5 CARE CRI T VISIT ASSOCIATE 15 S MINUTES OFFICE 42319 FAMILY CROWDY OUTPATIEN 5 5 CARE CRI T VISIT ASSOCIATE 15 S MINUTES OFFICE 46975 [facility] PETTEY OUTPATIEN 5 5 PHYSICIAN JAM T VISIT S GROUP 15 MINUTES EMERGENCY 24032 YAYA SKYEY [address] [facility] T VISIT MODERATE SEVERITY OFFICE 15918 [facility] PETTEY OUTPATIEN 5 5 PHYSICIAN JAM T NEW 20 S GROUP MINUTES HOSPITAL SHIRA - 5 5 [facility] OUTPATIEN INC T OFFICE 26084 FAMILY LISA OUTPATIEN 5 5 CARE PAUL T VISIT ASSOCIATE 25 S MINUTES OFFICE 19717 FAMILY YAJAIRA OUTPATIEN 5 5 CARE R H T VISIT ASSOCIATE 15 S MINUTES OFFICE 11393 [place] MICHOACANO OUTPATIEN 5 5 MEDICAL ALLEN T VISIT SERV 25 FOUNDATIO MINUTES N OFFICE 53034 UNIVERSIT OUTPATIEN 5 5 Y T VISIT HOSPITAL 10 MINUTES [facility]OSPITAL [facility] 62133 FAMILY YAJAIRA OUTPATIEN 5 5 CARE R H T VISIT ASSOCIATE 15 S MINUTES OFFICE 61531 FAMILY CROWDY OUTPATIEN 5 5 CARE CRI T VISIT ASSOCIATE 15 S MINUTES OFFICE 63378 FAMILY LISA J OUTPATIEN 5 5 CARE G T VISIT ASSOCIATE 15 S MINUTES EMERGENCY 48795 SHIRA CEFERINO 5 5 [facility] T VISIT P LOW/MODER SEVERITY HOSPITAL SHIRA - 5 5 [facility] OUTPATIEN INC T EMERGENCY 51847 SHIRA 5 5 [facility] DEPARTMEN INC T VISIT MODERATE SEVERITY OFFICE 41463 FAMILY MULBERRY OUTPATIEN 4 4 CARE NEW T VISIT ASSOCIATE 15 S MINUTES OFFICE 15307 FAMILY YAJAIRA OUTPATIEN 4 4 CARE R H T VISIT ASSOCIATE 15 S MINUTES OFFICE 47486 FAMILY MULBERRY OUTPATIEN 4 4 CARE NEW T VISIT ASSOCIATE 15 S MINUTES OFFICE 24277 FAMILY OUTPATIEN 4 4 CARE T VISIT ASSOCIATE 15 S MINUTES OFFICE 81295 FAMILY YAJAIRA OUTPATIEN 4 4 CARE R H T VISIT ASSOCIATE 15 S MINUTES OFFICE 40827 LISA J OUTPATIEN 4 4 G T VISIT 15 MINUTES OFFICE 11958 MULBERRY MULBERRY OUTPATIEN 4 4 NEW NEW T VISIT 15 MINUTES OFFICE 31459 CINTRON CINTRON OUTPATIEN 4 4 ERIC ERIC T VISIT 15 MINUTES OFFICE 15162 MULBERRY MULBERRY OUTPATIEN 4 4 NEW NEW T VISIT 15 MINUTES OFFICE 69367 LISA Gordon LISA J OUTPATIEN 4 4 G G T VISIT 15 MINUTES HOSPITAL SHIRA - 4 4 [facility] OUTPATIEN INC T OFFICE 52827 FAMILY OUTPATIEN 3 3 CARE T VISIT ASSOCIATE 15 S MINUTES OFFICE 35777 MULBERRY MULBERRY OUTPATIEN 3 3 NEW NEW T VISIT 15 MINUTES OFFICE 02107 FAMILY LISA OUTPATIEN 3 3 CARE PAUL T VISIT ASSOCIATE 15 S MINUTES OFFICE 29584 [place] ROMOND OUTPATIEN 3 3 MEDICAL EDW T VISIT SERV 25 FOUNDATIO MINUTES N OFFICE 93248 YAJAIRA YAJAIRA OUTPATIEN 3 3 R H R H T VISIT 15 MINUTES OFFICE 01320 CINTRON CINTRON OUTPATIEN 3 3 ERIC ERIC T VISIT 15 MINUTES HOSPITAL UNIVERSIT - 3 3 Y OUTPATI HOSPITAL T OFFICE 75672 KMSF ABDULAZIZ OUTPATIEN 3 3 NURSE ERIC T VISIT PRACTITIO 15 NER GR MINUTES OFFICE 68301 LISA Gordon OUTPATIEN 3 3 G G T VISIT 10 MINUTES HOSPITAL SHIRA - 3 3 [facility] OUTPATIEN [facility] T OFFICE 86834 LISA Gordon OUTPATIEN 3 3 G G T VISIT 15 MINUTES HOSPITAL SHIRA - 3 3 [facility] OUTPATIEN [facility] T OFFICE 95298 ABDULAZIZ CINTRON OUTPATIEN 3 3 ERIC ERIC T VISIT 15 MINUTES OFFICE 55922 MULBERRY MULBERRY OUTPATIEN 3 3 NEW NEW T VISIT 15 MINUTES OFFICE 37699 SHIRA SILVA OUTPATIEN 2 2 IA [facility] T VISIT CENTER CENTER 10 MINUTES [facility] UNIVERSIT - 2 2 Y [facility] SHIR[facility] - 2 2 [facility] UN[facility] - 2 2 Y [facility] EMERGENCY 80737 MATEO CALLOWAY 2 2 MEDICAL NEW DEPARTMEN SERV T VISIT FOUNDATIO MODERATE SEVERITY EMERGENCY 71962 UNIVERSIT DEPT 2 2 Y VISIT HOSPITAL HIGH SEVERITY& THREAT [facility] SHIRA - 2 2 [facility] OUTPATIEN [facility] T OFFICE 98458 ABDULAZIZ CINTRON OUTPATIEN 2 2 ERIC ERIC T VISIT 15 MINUTES OFFICE 75906 BRENDA GUTIERREZ CONSULTAT 2 2 LUCIAN LUCIAN ION NEW/ESTAB PATIENT 40 MIN HOSPITAL UNIVERSIT - 2 2 Y [facility] T OFFICE 01912 CAM LEVY OUTPATIEN 2 2 SRI SRI T VISIT 25 MINUTES HOSPITAL UNIVERSIT - 2 2 Y [facility] T OFFICE 65368 FAMILY OUTPATIEN 2 2 CARE T VISIT ASSOCIATE 15 S MINUTES OFFICE 28978 ABDULAZIZ CINTRON OUTPATIEN 2 2 ERIC ERIC T VISIT 15 MINUTES OFFICE 52655 WARE WARE OUTPATIEN 2 2 KATIUSKA KATIUSKA T VISIT 15 MINUTES OFFICE 31146 LISA Gordon OUTPATIEN 2 2 T VISIT 15 MINUTES HOSPITAL SHIRA - 2 2 [facility] OUTPATIEN INC T OFFICE 63933 LISA Gordon OUTPATIEN 2 2 T VISIT 15 MINUTES OFFICE 70832 WARE WARE OUTPATIEN 2 2 KATIUSKA KATIUSKA T VISIT 15 MINUTES EMERGENCY 66444 SHIRA 2 2 [facility] DEPARTMEN INC T VISIT MODERATE SEVERITY HOSPITAL SHIRA - 2 2 [facility] OUTPATIEN INC T OFFICE 84780 FAMILY WARE OUTPATIEN 2 2 CARE KATIUSKA T VISIT ASSOCIATE 15 S MINUTES HOSPITAL SHIRA - 1 1 [facility] OUTPATIEN INC T OFFICE 91680 ABDULAZIZ CINTRON OUTPATIEN 1 1 ERIC ERIC T VISIT 15 MINUTES OFFICE 39417 MARINE HAWTHORNE OUTPATIEN 1 1 YESI YESI T NEW 30 MINUTES OFFICE 33865 FAMILY MULBERRY OUTPATIEN 1 1 CARE NEW T VISIT ASSOCIATE 15 S MINUTES OFFICE 77489 FAMILY MULBERRY OUTPATIEN 1 1 CARE NEW T VISIT ASSOCIATE 15 S MINUTES HOSPITAL SHIRA - 1 1 [facility] OUTPATIEN INC T OFFICE 62842 FAMILY MULBERRY OUTPATIEN 1 1 CARE NEW T VISIT ASSOCIATE 15 S MINUTES OFFICE 55865 FAMILY YAJAIRA OUTPATIEN 1 1 CARE R H T VISIT ASSOCIATE 15 S MINUTES OFFICE 47872 FAMILY BRENNANEET OUTPATIEN 1 1 CARE R H T VISIT ASSOCIATE 15 S MINUTES OFFICE 18121 FAMILY GONZALEZ J OUTPATIEN 1 1 CARE T VISIT ASSOCIATE 15 S MINUTES OFFICE 68045 JOHN CINTRON OUTPATIEN 1 1 NURSE ERIC T VISIT PRACTITIO 15 NER GR MINUTES OFFICE 59790 FAMILY OCONNOR OUTPATIEN 1 1 CARE NEW T VISIT ASSOCIATE 25 S MINUTES OFFICE 23471 MATEO RÍOS OUTPATIEN 1 1 MEDICAL ALLEN T VISIT SERV 15 FOUNDATIO MINUTES OFFICE 42585 FAMILY GONZALEZ J OUTPATIEN 0 0 CARE T VISIT ASSOCIATE 15 S MINUTES HOSPITAL SHIRA - 0 0 [facility] OUTPATIEN [facility] T OFFICE 58352 FAMILY YAJAIRA OUTPATIEN 0 0 CARE R H T VISIT ASSOCIATE 15 S MINUTES OFFICE 30129 FAMILY OCONNOR OUTPATIEN 0 0 CARE NEW T VISIT ASSOCIATE 15 S MINUTES HOSPITAL UNIVERSIT - 0 0 Y INPATIENT HOSPITAL OFFICE 98073 FAMILY LISA Gordon OUTPATIEN 0 0 CARE T VISIT ASSOCIATE 15 S MINUTES OFFICE 81347 MATEO RÍOS OUTPATIEN 0 0 MEDICAL ALLEN T VISIT SERV 10 FOUNDATIO MINUTES OFFICE 54276 FAMILY OCONNOR OUTPATIEN 0 0 CARE NEW T VISIT ASSOCIATE 15 S MINUTES [facility] 89847 JOHN CINTRON, OUTPATIEN 0 0 NURSE JOSÉ Stephens T VISIT PRACTITIO 15 NER GROUP MINUTES OFFICE 37959 FAMILY GONZALEZ J OUTPATIEN 0 0 CARE G T VISIT ASSOCIATE 15 S MINUTES OFFICE 59010 FAMILY YAJAIRA, OUTPATIEN 0 0 CARE R NII T VISIT ASSOCIATE 15 S MINUTES OFFICE 41545 JOHN CINTRON, OUTPATIEN 0 0 NURSE JOSÉ Stephens T VISIT PRACTITIO 15 NER GROUP MINUTES OFFICE 45730 FAMILY BRENNANEET, OUTPATIEN 0 0 CARE R NII T VISIT ASSOCIATE 15 S MINUTES OFFICE 22685 FAMILY OCONNOR, OUTPATIEN 0 0 CARE ALEKSANDR T T VISIT ASSOCIATE 15 S MINUTES OFFICE 54277 FAMILY GONZALEZ J OUTPATIEN 0 0 CARE G T VISIT ASSOCIATE 15 S MINUTES OFFICE 18315 MATEO ANNY, OUTPATIEN 0 0 MEDICAL EDWARD T VISIT SERV 15 FOUNDATIO MINUTES OFFICE 83258 FAMILY CARSONT, OUTPATIEN 0 0 CARE R NII T VISIT ASSOCIATE 15 S MINUTES HOSPITAL UNIVERSIT - 0 0 Y [facility] T OFFICE 26104 FAMILY BRENNANEET, OUTPATIEN 9 9 CARE R NII T VISIT ASSOCIATE 15 S MINUTES HOSPITAL UNIVERSIT - 9 9 Y [facility] SHIRA - 9 9 [facility] OUTPATIEN [facility] SHIRA - 9 9 [facility]EN [facility] SHIRA - 9 9 [facility] OUTPATIEN [facility] T OFFICE 42623 FAMILY OCONNOR, OUTPATIEN 9 9 CARE ALEKSANDR T T VISIT ASSOCIATE 15 S MINUTES OFFICE 69043 FAMILY BRENNANEET, OUTPATIEN 9 9 CARE R NII T VISIT ASSOCIATE 15 S MINUTES OFFICE 87473 ABEBEDreaMauricio ESTRADAROCKY OUTPATIEN 9 9 NURSE JOSÉ Stephens T VISIT PRACTITIO 10 NER GROUP MINUTES OFFICE 92108 FAMILY OCONNOR, OUTPATIEN 9 9 CARE ALEKSANDR T T VISIT ASSOCIATE 15 S MINUTES HOSPITAL SHIRA - 9 9 [facility] OUTPATIEN INC T OFFICE 04474 SH[facility]A OUTPATIEN 9 9 [facility] T VISIT INC 10 MINUTES [facility] - 9 [facility] 9 9 [facility] - 9 9 [facility] 91853 MATEO LEVY OUTPATIEN 9 9 MEDICAL BIMAL T VISIT SERV 15 FOUNDATIO MINUTES OFFICE 04165 Heidi REDD OUTPATIEN 9 9 CARE G T VISIT ASSOCIATE 15 S MINUTES OFFICE 51309 FAMILY GATES OUTPATIEN 9 9 CARE R NII T VISIT ASSOCIATE 15 S MINUTES OFFICE 63811 MATEO MCCORMICK OUTPATIPATRICA 9 9 MEDICAL EDWARD T VISIT SERV 15 FOUNDATIO MINUTES HOSPITAL SHIRA - 9 9 [facility] OUTPATIEN INC T OFFICE 95732 [place] KACI CONSULTBELEN 9 9 MEDICAL JULIETTE T ION SERV NEW/ESTAB FOUNDATIO PATIENT 40 MIN OFFICE 87106 FAMILY YAJAIRA OUTPATIEN 9 9 CARE R NII T VISIT ASSOCIATE 15 S MINUTES OFFICE 91484 FAMILY ANASTASIA OUTPATIEN 9 9 CARE ALEKSANDR T T VISIT ASSOCIATE 15 S MINUTES OFFICE 13686 FAMILY YAJAIRA OUTPATIEN 9 9 CARE R NII T VISIT ASSOCIATE 15 S MINUTES HOSPITAL SHIRA - 9 9 [facility] OUTPATIEN INC T OFFICE 60508 FAMILY MULBERRY, OUTPATIEN 9 9 CARE ALEKSANDR T T VISIT ASSOCIATE 15 S MINUTES OFFICE 73569 FAMILY ANASTASIA, OUTPATIEN 9 9 CARE ALEKSANDR T T VISIT ASSOCIATE 15 S MINUTES HOSPITAL UNIVERSIT - 9 9 Y OUTPATI HOSPITAL T OFFICE 53860 KMS ABDULAZIZ OUTPATIEN 9 9 NURSE JOSÉ Stephens T VISIT PRACTITIO 10 NER GROUP MINUTES HOSPITAL SHIRA - 9 9 [facility] OUTPATIEN INC T OFFICE 78668 FAMILY YAJAIRA, OUTPATIEN 9 9 CARE R NII T VISIT ASSOCIATE 15 S MINUTES OFFICE 33931 FAMILY YAJAIRA, OUTPATIEN 9 9 CARE R NII T VISIT ASSOCIATE 15 S MINUTES OFFICE 63581 FAMILY YAJAIRA, OUTPATIEN 9 9 CARE R NII T VISIT ASSOCIATE 15 S MINUTES [facility] 9 [facility] 78235 FAMILY YAJAIRA, OUTPATIEN 9 9 CARE R NII T VISIT ASSOCIATE 15 S MINUTES OFFICE 73513 MATEO ANNY, OUTPATIEN 9 9 MEDICAL EDWARD T VISIT SERV 15 FOUNDATIO MINUTES OFFICE 99957 FAMILY YAJAIRA, OUTPATIEN 9 9 CARE R NII T VISIT ASSOCIATE 15 S MINUTES OFFICE 54307 FAMILY YAJAIRA, OUTPATIEN 8 8 CARE R NII T VISIT ASSOCIATE 10 S MINUTES OFFICE [id number] MATEO MICHOACANO OUTPATIEN 8 8 MEDICAL ELENA J T VISIT SERV 10 FOUNDATIO MINUTES OFFICE 21625 FAMILY YAJAIRA, OUTPATIEN 8 8 CARE R NII T VISIT ASSOCIATE 15 S MINUTES OFFICE [id number] MATEO ANNY OUTPATIEN 8 8 MEDICAL EDWARD T VISIT SERV 15 FOUNDATIO MINUTES OFFICE 22099 MATEO MICHOACANO BRIFREYA 8 8 MEDICAL ELENA Gordon T VISIT SERV 15 FOUNDATIO MINUTES [facility] Y INPATIENT [facility] SHRIA - 8 8 MEM [id number] YAJAIRA BRIFREYA 8 8 CARE R NII T VISIT ASSOCIATE 15 S MINUTES OFFICE 27151 FAMILY OCONNOR ANNAPATRICA 8 8 CARE ALEKSANDR T T VISIT ASSOCIATE 15 S MINUTES OFFICE 85579 [facility] CARE ALEKSANDR T T VISIT ASSOCIATE 15 S MINUTES OFFICE 67202 Heidi GONZALEZ [facility] 8 8 CARE G T VISIT ASSOCIATE 15 S MINUTES OFFICE 64375 YAJAIRA ANNAPATRICA 8 8 CARE R NII T VISIT ASSOCIATE 15 S MINUTES OFFICE 87561 MATEO ANG MCCORMICK 8 8 MEDICAL EDWARD T VISIT SERV 15 FOUNDATIO MINUTES
--- OUTSIDE RECORDS SUMMARY | 2017-04-05 10:45 | External Medical Summary Rpt ---
Author Author , LACY Organization LACY Address Unknown Phone [email or web address] Care Team Providers Care Environmental Economist Name Role Phone [facility] Unavailable [...] Unavailable YESI ARNOLD YESI, ARNOLD Unavailable Unavailable YEIS ANDRES HAWTHORNE, Unavailable Unavailable ANDRES HAWTHORNE BALBAUGH [...] KATIUSKA HANA ANT, HANA ANT Unavailable [facility]available [facility] Unavailable Unavailable [facility]ENTER, [facility] Unavailable Unavailable [facility]ENTER, [facility] Unavailable Unavailable INC, [facility] Unavailable [facility]available [facility]PITAL [facility], [facility] Unavailable Unavailable [facility], Unavailable Unavailable [facility] KAMINENI SRI, Unavailable Unavailable KAMINENI SRI KAMINENI SRI, Unavailable Unavailable KAMINENI SRI KAMINENI, BIMAL, Unavailable Unavailable KAMINENI, BIMAL ABAD, CHICHUAN Y, Unavailable Unavailable ABAD, CHICHUAN Y KARAZEEM, THO, Unavailable Unavailable KARPARKERS, JR THO [facility], Unavailable Unavailable [facility], Unavailable Unavailable [facility] Unavailable Unavailable IMAGING [facility], [facility] Un[facility], Unavailable Unavailable [facility] Unavailable Unavailable [facility], [facility] Unavailable Unavailable [facility], [facility] MICHOACANO VILLA, Unavailable Unavailable ELENA STINSON, Unavailable Unavailable ELENA RÍOS LAWSON Unavailable Unavailable [facility] Un[facility]available [facility] BRENDA LUCIAN, Unavailable Unavailable BRENDA LUCIAN [...] [facility] #[id number] [facility] Unavailable Unavailable [id number] [address] [id number], [facility] [id number] # [id number] ROMOND EDW, ROMOND Unavailable Unavailable EDW ROMOND, EDWARD, Unavailable Unavailable ROMOND, EDWARD [facility] Unavailable Unavailable [facility], [facility] Unavailable Unavailable [facility], [facility] SOTINGEANU NAM, Unavailable Unavailable SOTINGEANU NAM CHEPE AMBROSIO, CHEPE Unavailable Unavailable AMBROSIO CARLOS ERIC, CARLOS Unavailable Unavailable ERIC LISA, LISA Unavailable Unavailable REILLY KING, REILLY Unavailable Unavailable [facility] Unavailable Unavailable HOSPITALS, [facility], Unavailable [facility]available [facility] Unavailable [facility] Unavailable Unavailable #591, [facility] # Unavailable [facility]available [id number], [facility] # [id number] [facility] Unavailable Unavailable DEPT [facility] Unavailable [facility]available DEPT [facility] [place], Unavailable Un[facility], Unavailable Unavailable [facility] Purpose Continuity of Care Document - 09-23-2007 through 2016 Problems Code Diagnosis DOS Provider Status B360 PITYRIASIS 02-08-2017 [facility] J301 ALLERGIC 02-08-2017 [facility] RH[facility]IS [facility] DUE TO POLLEN J069 ACUTE UPPER 01-15-2017 [facility] RESPIRATORY INFECTION UNSPECIFIED D66 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 J309 ALLERGIC 08-22-2016 [facility] UNSPECIFIED M7981 NONTRAUMATI 08-21-2016 [facility] HEMATOMA SERV OF SOFT FOUNDATION TISSUE [id number] CONTUSION 08-21-2016 [facility] INITIAL ENCOUNTER C32265S CONTUSION 08-21-2016 [facility] UNS FRONT SERV WALL [facility] INITIAL ENCNTR [id number] CONTUSION 08-21-2016 [facility] OF RIGHT SERV SHOULDER [facility] INITIAL ENCOUNTER J0301 ACUTE 08-14-2016 [facility] RECURRENT PHYSICIANS STREPTOCOCC GROUP AL TONSILLITIS [...] D/T OTH CHEM PRODUCTS R140 ABDOMINAL 01-18-2016 [facility] DISTENSION SERV GASEOUS FOUNDATION Z0389 ENCOUNTER 01-18-2016 [facility] OBSERV OTH SERV SUSPCT DZ & FOUNDATION COND RULED OUT Z048 ENCOUNTER 01-18-2016 [facility] OTHER SPEC REASONS Z049 ENCOUNTER 01-18-2016 [facility] EXAMINATION SERV &OBSERVATIO FOUNDATION N FOR UNS REASON D699 HEMORRHAGIC 01-06-2016 [facility] CONDITION [facility] UNSPECIFIED L7621 POSTPROC 01-05-2016 [facility] HEMORR SKIN PHYSICIANS, & SUBQ PLLC TISSUE FLW DERM PROC L0390 CELLULITIS 12-01-2015 [facility] UNSPECIFIED ASSOCIATES L94407 CELLULITIS 11-27-2015 [facility] OF CHEST [facility] WALL INC Z792 AEROSPACE MEDICINE PHYSICIAN 11-26-2015 [facility] CURRENT USE [facility] OF [...] ASSOCIATES ITIS COMMON COLD M1990 UNSPECIFIED 07-07-2015 [facility] OSTEOARTHRI TIS UNSPECIFIED SITE 4659 ACUTE URIS 05-08-2015 [facility] OF ASSOCIATES UNSPECIFIED SITE V069 NEED PROPH 03-23-2015 [facility] W/UNSPEC TH DEPT COMB KING VACCINE 7048 OTHER 03-19-2015 [facility] SPECIFIED [facility]ATES DISEASE OF HAIR&HAIR FOLLICLES 2662 OTHER 02-15-2015 COMBINED B-COMPLEX PHYSICIANS DEFICIENCIE LA S 7820 DISTURBANCE 02-15-2015 [facility]ED OF SKIN PHYSICIANS SENSATION [place] 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 24921 CLOSED 02-03-2015 [facility] FRACTURE OF PHYSICIANS TRIQUETRAL GROUP BONE OF WRIST 8290 CLOSED 02-03-2015 [facility] FRACTURE OF PHYSICIANS GROUP UNSPECIFIED BONE 2410 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 [facility] 87274 ASTHMA, 01-29-2015 [facility] UNSPECIFIED [facility] , INC UNSPECIFIED STATUS 96943 PAIN IN 01-29-2015 [place] [facility]INT, MEDICAL FOREARM [facility] 7239 UNSPEC 01-29-2015 [facility] MUSCULOSKEL [facility] INC D/O&SYMPTOM S REFERABLE NECK 7295 PAIN IN 01-29-2015 [place] SOFT MEDICAL TISSUES OF IMAGING ASS LIMB 97133 SPRAIN AND 01-29-2015 [facility] STRAIN OF PHYSICIANS, UNSPECIFIED PLLC SITE OF WRIST 78892 SPRAIN AND 01-29-2015 [facility] STRAIN OF MEM [facility] UNSPECIFIED INC SITE OF HAND 9593 INJURY 01-29-2015 [place] OTHER&UNSPE MEDICAL CIFIED IMAGING ASS ELBOW FOREARM&WRI ST 9594 INJURY 01-29-2015 [place] OTHER AND MEDICAL UNSPECIFIED IMAGING ASS HAND EXCEPT FINGER 62190 OSTEOARTHRO 11-25-2014 [place] [facility] UNSPEC SERV WHETHER [facility] GEN/LOC ANK&FOOT 90553 UNSPECIFIED 11-25-2014 [facility] ARTHROPATHY ANKLE AND FOOT 69885 SPASM OF 11-25-2014 [facility] 6929 CONTACT 11-24-2014 [facility] DERMATITIS& ASSOCIATES OTHER ECZEMA DUE UNSPEC CAUSE 7336 TIETZES 11-02-2014 [facility] DISEASE [facility] 11041 OPEN WOUND 10-12-2014 [facility] FOREHEAD [facility] WITHOUT M[place] COM[place]ICATIO N 96810 OPEN WOUND 10-06-2014 [facility] FACE UNSPEC [facility] P WITHOUT MENTION COMP E8490 PLACE OF 10-06-2014 [facility] OCCURRENCE, [facility] P E9600 UNARMED 10-06-2014 [facility] OR [facility] P 4660 ACUTE 09-04-2014 [facility] BRONCHITIS [facility] 35094 OTHER 09-04-2014 [facility] DYSPNEA AND ASSOCIATES [...] Heidi Gil NOT SPECIFIED ACUTE OR CHRONIC 94446 ASTHMA 09-15-2013 LISA Heidi Gil UNSPECIFIED WITH EXACERBATIO N 4911 MUCOPURULEN 09-12-2013 [facility] CHRONIC HOME BRONCHITIS MEDICAL EQUIPME 4919 UNSPECIFIED 09-12-2013 SYL CHRONIC MARA BRONCHITIS 4720 CHRONIC 05-08-2013 YAJAIRA R RHINITIS H 14444 PAIN IN 01-15-2013 [facility] ANKLE AND FOOT 92135 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 TRAUMATIC [facility] FRACTURE LOWER ARM V5489 OTHER 07-09-2012 [facility] AFTERCARE V0481 NEED 06-28-2012 [facility] CASTELLANOS [facility] VACCINATION &INOCULATIO N FLU 21761 UNSPECIFIED 06-10-2012 [facility] HOSP ARTHROPATHY INC , UPPER ARM 45424 UNSPECIFIED 05-30-2012 [facility] SERV ARTHROPATHY [facility] OTHER SPECIFIED SITES 17133 CLOSED 05-30-2012 [place] FRACTURE [facility] OLECRANON PROCESS OF ULNA 44347 OTHER&UNSPE 05-30-2012 [facility] C OPEN SERV FRACTURES [facility] PROXIMAL END RADIUS 73902 OTHER 05-09-2012 [facility] PAIN 22285 STIFFNESS 05-09-2012 [facility] UPPER ARM 51836 UNSPECIFIED 05-09-2012 [facility] [place] [address] OTHER 05-09-2012 [facility] [place] [address] OTHER 05-09-2012 [facility] CONGENITAL ANOMALY HEART OTHER 01833 PRIMARY 04-02-2012 KAMINENI LOCALIZED [facility] OSTEOARTHRO [facility] UPPER ARM 09263 OSTEOARTHRO 04-02-2012 [facility] WHETHER GEN/LOC UPPER ARM 11575 LOOSE BODY 04-02-2012 KAMINENI IN UPPER [facility] ARM JOINT 9895 TOXIC 03-05-2012 [facility] EFFECT OF ASSOCIATES VENOM 15884 HEMOPTYSIS 01-16-2012 LISA J UNSPECIFIED 22881 OTHER 01-02-2012 [place] DISEASES OF MEDICAL LUNG NOT IMAGING ASS ELSEWHERE CLASSIFIED 93601 HEMATURIA 10-16-2011 WARE KATIUSKA UNSPECIFIED 7880 RENAL COLIC 10-14-2011 [facility] 61920 ABDOMINAL 10-14-2011 SYL PAIN, LEFT MARA UPPER QUADRANT 1123 CANDIDIASIS 09-25-2011 [facility] OF SKIN ASSOCIATES AND NAILS 59657 HEMARTHROSI 08-24-2011 [facility] S, ANKLE [facility] AND FOOT INC 17586 ASTHMA 07-25-2011 ARNOLD YESI UNSPECIFIED WITH STATUS ASTHMATICUS 5781 BLOOD IN 03-03-2011 [facility] STOOL [facility] 18141 NAUSEA 03-03-2011 [facility] ALONE [facility] 95488 DIARRHEA 03-03-2011 [facility] INC 4779 ALLERGIC 02-07-2011 [facility] RHINITIS [facility]ATES CAUSE UNSPECIFIED 87873 PAINFUL 09-05-2010 [place] [facility] 34970 OTHER CHEST 09-05-2010 [facility] PAIN [facility] INC 95303 PRIMARY 07-05-2010 [facility] LOCALIZED SERVICES OSTEOARTHRO [facility] ANKLE AND FOOT 17706 ABDOMINAL 06-18-2010 [facility] PAIN, ASSOCIATES EPIGASTRIC 45083 EFFUSION OF 05-31-2010 [facility] JOINT 7388 ACQUIRED 05-31-2010 [facility] ETAL DEFORMITY OTH SPEC SITE 98222 UNSPECIFIED 02-02-2010 [facility] OTALGIA [facility] 6829 CELLULITIS 01-21-2010 [facility] AND ABSCESS ASSOCIATES OF UNSPECIFIED SITE 5589 OTH&UNSPEC 01-03-2010 [facility] NONINFECTIO ASSOCIATES US GASTROENTER ITIS&COLITI S V7260 LABORATORY 10-28-2009 LAB SHANI EXAMINATION [employer] UNSPECIFIED 88576 STOMATITIS 09-09-2009 [facility] AND ASSOCIATES MUCOSITIS UNSPECIFIED V5881 FITTING AND 07-15-2009 [facility] ADJUSTMENT [facility] OF INC VASCULAR CATHETER 02581 SIDEROSIS 06-21-2009 HI MEDICAL OF GLOBE SERV FOUNDATIO 40969 OSTEOARTHRO 06-21-2009 [facility] S UNSPEC SERV GEN/LOC OTH FOUNDATIO SPEC SITES 26287 UNSPECIFIED 06-21-2009 [facility] SERV ARTHROPATHY FOUNDATIO , FOREARM 1110 PITYRIASIS 05-27-2009 [facility] VERSICOLOR [facility] 36946 PAIN IN 01-19-2009 [facility] JOINT, SERV LOWER LEG FOUNDATIO 77126 OTHER 11-25-2008 [facility] SPECIFIED ASSOCIATES CIRCULATORY SYSTEM DISORDERS 76973 OTHER CYST 11-16-2008 [facility] 5990 URINARY 10-16-2008 [facility] TRACT ASSOCIATES INFECTION SITE NOT SPECIFIED 26915 OTHER 07-23-2008 PROSTHETIC& ACQUIRED ORTHOTIC DEFORMITY ASSOCIATES, OF [employer] AND FOOT OTHER 4778 ALLERGIC 06-05-2008 [facility] RHINITIS ASSOCIATES DUE TO OTHER ALLERGEN 8250 CLOSED 05-06-2008 [facility] FRACTURE OF SERV CALCANEUS FOUNDATIO 31629 OTHER 02-12-2008 [facility] DISORDERS OF ANKLE&FOOT JOINT 64300 EXOSTOSIS 02-12-2008 [facility] UNSPECIFIED SITE 38469 OTHER 02-12-[address] [facility] OTHER 4590 UNSPECIFIED 01-30-2008 [facility] HEMORRHAGE SERV FOUNDATIO 49201 OTHER 01-30-2008 [facility] RETROPERITO SERV YAYA FOUNDATIO ABSCESS 94800 RETROPERITO 01-30-2008 [facility] N INJURY SERV W/O [place] 45254 HEMOPERITON 01-29-2008 [facility] 77770 ABDOMINAL 01-28-2008 [place] PAIN, LEFT MEDICAL LOWER IMAGING QUADRANT ASSOCIATES [...] 3, 00 [address]I T CT 00 05 06 24 12 00 CL [...] 0 CY MG CA PS UL E CT 00 12 01 24 12 00 CL [...] 3 60 [address] 18 -1 -1 .0 TE 15 RF [...] 3 60 30 RI [address] 18 -1 -0 .0 TE 15 RF [...] 3 60 30 RI [address] 18 -1 -1 .0 TE 15 RF [...] 15 3- 3- [address] 02 20 20 AI ET ED 20 [...] 11 11 D R E [address] AR HE OP MA NR CY Y [...] 20 20 NE 98 11 11 PH AMTT 7 AR HN HC MA G L [...] IT IN C # AL [address] 68 11 11 0 15 4 CL [...] 0 60 30 CL [address] 18 -1 -1 .0 IN 49 OP ti OP 50 4- 4- 00 IC 78 ER ve IO 41 20 20 N 50 10 10 PH MATT HC 1 AR HN L MA G SR CY 15 LL 0 C MG TA BL ET BU 00 09 09 2 30 30 CL [address] 18 -2 -2 .0 IN 37 OP [...] 3 30 30 [address] 18 -2 -2 .0 TE 70 OP [...] AR HN MA G CY LL C CT 00 04 04 12 3 RI 83 [...] 80 5- 5- [address] 01 20 20 AI AM 10 10 [...] GR M IT OU P NO IN OH C NA L HE 00 04 06 00 28 6 AC 19 PE Ac MO 94 -1 -0 50 CR 40 TE ti FI 42 0- 4- .0 ED 31 RS ve L 93 20 20 00 O ON M 10 09 09 HE 50 1 AL NIELSEN 0 TH SA UN N IT GR M OU NO P OH IN NA C L 60 05 05 [...] GR M IT OU P NO IN OH C NA L HE 00 09 03 03 13 6 AC 17 PE Ac MO 94 -1 -2 56 CR 11 TE ti FI 42 7- 6- 0. ED 3 RS ve L 93 20 20 00 O ON M 20 08 09 0 HE 1, 1 AL NIELSEN 00 TH SA 0 N UN GR M IT OU P NO IN OH C NA L HE 00 09 02 02 13 6 AC 17 PE Ac MO 94 -1 -2 56 CR 11 TE ti FI 42 7- 6- 0. ED 3 RS ve L 93 20 20 00 O ON M 20 08 09 0 HE 1, 1 AL NIELSEN 00 TH SA 0 N UN GR M IT OU P NO IN OH C NA L CI 55 02 02 00 14 7 [address] 11 -0 -1 .0 L- 06 RF [...] GR M IT OU P NO IN OH C NA L 60 01 01 01 [...] GR M IT OU P NO IN OH C NA L HE 00 09 10 00 11 6 AC 16 PE Ac MO 94 -1 -0 04 CR 04 TE ti FI 42 7- 9- 0. ED 7 RS ve L 93 20 20 00 O ON M 30 08 08 0 HE 1, 1 AL NIELSEN 70 TH SA 0 N UN GR M IT OU P NO IN OH C NA L 00 09 10 00 [...] Procedure DOS Code Location Performer Comment BLOOD 13206 FAMILY FAMILY COUNT 7 CARE CARE COMPLETE ASSOCIATE ASSOCIATE AUTO&AUTO S S DIFRNTL WBC BLOOD 04511 FAMILY FAMILY COUNT 7 CARE CARE COMPLETE ASSOCIATE ASSOCIATE AUTO&AUTO S S DIFRNTL WBC IAADIADOO 79189 FAMILY WARE 7 CARE STREPTOCO ASSOCIATE CCUS S GROUP A IAADIADOO 14525 FAMILY YAJAIRA 7 CARE STREPTOCO ASSOCIATE CCUS S GROUP A COLLECTIO 49182 FAMILY MULBERRY N 6 CARE CAPILLARY ASSOCIATE BLOOD S SPECIMEN BLOOD 02650 FAMILY MULBERRY COUNT 6 CARE COMPLETE ASSOCIATE AUTO&AUTO S DIFRNTL WBC BLOOD 88840 [facility] COUNT 6 [facility] COMPLETE E E AUTO&AUTO [facility] [place] [address] [facility] EXTREMITY 6 [facility] NON-VASC E E [facility]OS[facility] REAL-TIME IMG LMTD THROMBOPL 32465 [facility] ASTIN 6 [facility] TIME E E PARTIAL HOSPITALS HOSPITALS PLASMA/WH OLE BLOOD ANTIBODY 61607 [facility] SCREEN 6 [facility] RBC EACH E E SERUM [facility] TECHNIQUE BLOOD 83534 [facility] TYPING 6 [facility] SEROLOGIC E E ABO [facility] PROTHROMB 44774 [facility] IN TIME 6 [facility]ALTH[facility] HEALTHCAR E E HOSPITALS HOSPITALS BLOOD 88485 [facility] TYPING 6 [facility] SER[facility] E E RH (D) HOSPITALS HOSPITALS COMPREHEN 31227 [facility] SIVE [facility] METABOLIC E E PANEL [facility] CUL BACT 93212 COMBINED COMBINED XCPT 6 PHYSICIAN PHYSICIAN URINE S LA S LA BLOOD/STO OL AEROBIC ISOL IAADIADOO 43814 FAMILY ISAMAR 6 CARE STREPTOCO ASSOCIATE CCUS S GROUP A IAADIADOO 65766 FAMILY ISAMAR 6 CARE TAR STREPTOCO ASSOCIATE CCUS S GROUP A BLOOD 63731 FAMILY FAMILY COUNT 6 CARE CARE COMPLETE ASSOCIATE ASSOCIATE AUTO&AUTO S S DIFRNTL WBC RADEX 99174 [place] [facility] ALL SINUSES 6 MEDICAL PARANASAL IMAGING COMPL ASS MINIMUM 3 VIEWS IAADIADOO 72163 FAMILY ISAMAR 6 CARE TAR STREPTOCO ASSOCIATE CCUS S GROUP A BLOOD 04879 FAMILY FAMILY COUNT 6 CARE CARE COMPLETE ASSOCIATE ASSOCIATE AUTO&AUTO S S DIFRNTL WBC RADEX 75937 [place] ABDOMEN 1 6 MEDICAL MALIK[place] SERV ANTEROPOS FOUNDATIO TERIOR N VIEW RADIOLOGI 16713 [place]ICKEL[place] C 6 MEDICAL MAL[place] EXAMINATI SERV ON CHEST FOUNDATIO SINGLE N VIEW FRONTAL BLOOD 57218 FAMILY ISAMAR COUNT 6 CARE TAR COMPLETE ASSOCIATE AUTO&AUTO S DIFRNTL WBC IAADIADOO 25712 FAMILY ISAMAR 6 CARE TAR STREPTOCO ASSOCIATE CCUS S GROUP A COLLECTIO 90456 FAMILY ISAMAR N 6 CARE TAR CAPILL[place] [address] [facility] SILVA INFUSION 6 [facility] THERAPY INC [place] [address] [facility] SILVA INFUSION 6 [facility] THERAPY/P INC INC ROPHYLAXI S /DX 1ST TO 1 HR UNCLASSIF J3490 [facility] SILVA IED DRUGS 6 [facility] H[facility] INC INC UNCLASSIF J3490 [facility] SILVA IED DRUGS 6 [place] [address] SHIRA SILVA INFUSION 6 MEM HOS[facility] THERAPY/P INC INC ROPHYLAXI S /DX 1ST TO [place] [address] [facility] SILVA INFUSION 6 [facility] THERAPY INC [place] [address] [facility] SILVA INFUSION 6 [facility] THERAPY INC [place] [address] [facility] SILVA INFUSION 6 [facility] THERAPY/P INC INC ROPHYLAXI S /DX 1ST TO 1 HR UNCLASSIF J3490 [facility] SILVA IED DRUGS 6 [facility] INC INC UNCLASSIF J3490 SHIRA SILVA IED DRUGS 6 [facility] [place] [address] SHIRA [facility]ILVA INFUSION 6 [facility] THERAPY/P INC INC ROPHYLAXI S /DX 1ST TO [place] [address] [facility] SILVA INFUSION 6 [facility] THERAPY INC INC PROPHYLAX IS/DX EA HOUR BASIC 80536 [facility] SILVA METABOLIC 6 [facility] PANEL INC INC CALCIUM TOTAL DRUG 34321 [facility] SILVA SCREEN 6 [facility] [place]ITAT [place] [address] SH[facility] SILVA INFUSION 6 [facility] THERAPY/P INC INC ROPHYLAXI S /DX 1ST TO [place] [address] [facility] SILVA INFUSION 6 [facility] THERAPY INC INC PROPHYLAX IS/DX EA HOUR UNCLASSIF J3490 [facility] SILVA IED DRUGS 6 [facility] INC INC UNCLASSIF J3490 [facility] SILVA IED DRUGS 6 [facility] [place] [address] SHIRA SILVA INFUSION 6 [facility] THERAPY/P INC INC ROPHYLAXI S /DX 1ST TO [place] [address] SH[facility]ILVA INFUSION 6 [facility] THERAPY INC [place] [address] SHIRA SILVA INFUSION 6 [facility] THERAPY INC [place] [address] SHIRA SILVA INFUSION 6 MEM H[facility] MEM HOS[facility] THERAPY/P INC INC ROPHYLAXI S /DX 1ST TO [place] [address] [facility] SILVA INFUSION 6 [facility] H[facility]OS[facility] THERAPY/P INC INC ROPHYLAXI S /DX 1ST TO [place] [address] SHIRA SILVA INFUSION 6 [facility] THERAPY INC INC PROPHYLAX IS/DX EA HOUR UNCLASSIF J3490 [facility] SILVA IED DRUGS 6 [facility] H[facility]OS[facility] INC INC DRUG 51396 [facility] SILVA SCREEN 6 [facility] QUANTITAT INC INC JEF VANCOMYCI N COLLECTIO 78227 SHIRA SHIRA N VENOUS 6 [facility] H[facility]OS[facility] BLOOD INC INC VENIPUNCT URE UNCLASSIF J3490 SHIRA SILVA IED DRUGS 6 [place] [address] SHIRA SILVA INFUSION 6 [facility] THERAPY/P INC INC ROPHYLAXI S /DX 1ST [place] [address] [facility] SILVA INFUSION 6 [facility] THERAPY INC INC PROPHYLAX IS/DX EA HOUR BLOOD 96286 FAMILY FAMILY COUNT 6 CARE CARE COMPLETE ASSOCIATE ASSOCIATE AUTO&AUTO S S DIFRNTL WBC BLOOD 53345 FAMILY FAMILY COUNT 6 CARE CARE COMPLETE ASSOCIATE ASSOCIATE AUTO&AUTO S S DIFRNTL WBC BLOOD 97429 FAMILY FAMILY COUNT 6 CARE CARE COMPLETE ASSOCIATE ASSOCIATE AUTO&AUTO S S DIFRNTL WBC BLOOD 15363 FAMILY FAMILY COUNT 6 CARE CARE COMPLETE ASSOCIATE ASSOCIATE AUTO&AUTO S S DIFRNTL WBC IAADIADOO 47589 FAMILY CROWDY 6 CARE CRI STREPTOCO ASSOCIATE CCUS S GROUP A BLOOD 39235 FAMILY FAMILY COUNT 5 CARE CARE COMPLETE ASSOCIATE ASSOCIATE AUTO&AUTO S S DIFRNTL WBC BLOOD 88710 FAMILY FAMILY COUNT 5 CARE CARE COMPLETE ASSOCIATE ASSOCIATE AUTO&AUTO S S DIFRNTL WBC ANKLE L4350 [employer] CONTROL 5 ORTHOSIS STIRRUP STYL RIGID PREFAB BLOOD 47833 FAMILY FAMILY COUNT 5 CARE CARE COMPLETE ASSOCIATE ASSOCIATE AUTO&AUTO S S DIFRNTL WBC BLOOD 04631 FAMILY FAMILY COUNT 5 CARE CARE COMPLETE ASSOCIATE ASSOCIATE AUTO&AUTO S S DIFRNTL WBC IM ADM 06747 [facility] SUBQ/IM TH DEPT [facility] DEPT NJXS 1 [place] VACCINE TDAP 69511 [facility]ACC[facility] YRS/> IM HLTH DEPT TH DEPT [place] CYANOCOBA 63457 COMBINED COMBINED HARDY 5 PHYSICIAN PHYSICIAN VITAMIN S LA S LA B-12 MYOGLOBIN 41802 COMBINED COMBINED 5 PHYSICIAN PHYSICIAN S LA S LA COMPREHEN 80712 COMBINED COMBINED SIVE 5 PHYSICIAN PHYSICIAN METABOLIC S LA S LA PANEL CREATINE 35146 COMBINED COMBINED KINASE MB 5 PHYSICIAN PHYSIC[place] [address] COMBINED COMBINED TROPONIN 5 PHYSICIAN PHYSICIAN QUALITATI S LA S LA VE INJECTION J7185 [facility] FACTOR 5 VIII PER IU RADEX 99968 [facility] WRIST [facility] COMPLETE INC INC MINIMUM 3 VIEWS APPLICATI 11809 [facility] CAST 5 PHYSICIAN MIKA ELBOW S GROUP FINGER SHORT ARM US SOFT 30686 [facility] TISSUE 5 [facility] HEAD & INC INC NECK REAL TIME IMGE DOCM APPLICATI 61706 [facility] S[facility] ON SHORT 5 [facility] ARM INC INC SPLINT FOREARM-H AND STATIC CAST Q4010 [facility] SUPPLIES 5 PHYSICIAN JAM SHORT ARM S GROUP CAST ADULT FIBERGLAS S WRIST L3908 [facility] 5 TECHNOLOG TECHNOLOG ORTHOSIS IES INC IES INC EXT CONTROL COCK-UP PREFAB RADEX 79859 [facility] HAND 5 [facility] MINIMUM 3 INC INC VIEWS BLOOD 61916 FAMILY FAMILY COUNT 5 CARE CARE COMPLETE ASSOCIATE ASSOCIATE AUTO&AUTO S S DIFRNTL WBC BLOOD 56869 FAMILY FAMILY COUNT 5 CARE CARE COMPLETE ASSOCIATE ASSOCIATE AUTO&AUTO S S DIFRNTL WBC INJECTION J7185 [facility] [facility] FACTOR 5 VIII PER IU RADEX 17252 [facility] ANKLE 5 Y Y COMPLETE [facility] MINIMUM 3 VIEWS IAADIADOO 89546 FAMILY YAJAIRA 5 CARE R H STREPTOCO ASSOCIATE CCUS S GROUP A BLOOD 82519 FAMILY FAMILY COUNT 5 CARE CARE COMPLETE ASSOCIATE ASSOCIATE AUTO&AUTO S S DIFRNTL WBC INJECTION J7185 [facility] [employer] FACTOR 5 VIII PER IU INJECTION J7185 [employer] FACTOR 5 VIII PER IU SIMPLE 61720 [facility] REPAIR 5 [facility] F/E/E/N/L INC INC /M 2.5CM/< IM ADM 03022 [facility] PRQ ID 5 [facility] SUBQ/IM INC INC NJXS 1 VACCINE TDAP 93680 [facility] VACCINE 7 5 [facility] YRS/> IM INC INC BLOOD 65742 FAMILY FAMILY COUNT 4 CARE CARE COMPLETE ASSOCIATE ASSOCIATE AUTO&AUTO S S DIFRNTL WBC BLOOD 20698 FAMILY FAMILY COUNT 4 CARE CARE COMPLETE ASSOCIATE ASSOCIATE AUTO&AUTO S S DIFRNTL WBC IAADIADOO 48550 FAMILY YAJAIRA 4 CARE R H INFLUENZA ASSOCIATE S BLOOD 72692 FAMILY FAMILY COUNT 4 CARE CARE COMPLETE ASSOCIATE ASSOCIATE AUTO&AUTO S S DIFRNTL WBC INJECTION J7185 BIORX BIORX FACTOR 4 VIII PER IU BLOOD 62885 FAMILY FAMILY COUNT 4 CARE CARE COMPLETE ASSOCIATE ASSOCIATE AUTO&AUTO S S DIFRNTL WBC INJECTION J7185 BIORX BIORX FACTOR 4 VIII PER IU INJECTION J7185 BIORX BIORX FACTOR 4 VIII PER IU BLOOD 88926 FAMILY FAMILY COUNT 4 CARE CARE COMPLETE [...] BIORX FACTOR 4 VIII PER IU BLOOD 55564 LISA Gordon COUNT 4 G G COMPLETE AUTO&AUTO DIFRNTL WBC BLOOD 35209 MULBERRY MULBERRY COUNT 4 NEW NEW COMPLETE AUTO&AUTO DIFRNTL WBC IAADIADOO 59259 MULBERRY MULBERRY 4 NEW NEW STREPTOCO CCUS GROUP A IAADIADOO 84226 MULBERRY MULBERRY 4 NEW NEW STREPTOCO CCUS GROUP A BLOOD 45958 MULBERRY BALBAUGH COUNT 4 NEW AND COMPLETE AUTO&AUTO DIFRNTL WBC INJECTION J7185 BIORX BIORX FACTOR 4 VIII PER IU INJECTION J7185 BIORX BIORX FACTOR 4 VIII PER IU INJECTION J7185 BIORX BIORX FACTOR 4 VIII PER IU BLOOD 69858 LISA Gordon COUNT 4 G G COMPLETE AUTO&AUTO DIFRNTL WBC NONINVASI 89694 LISA Gordon VE 4 G G EAR/PULSE OXIMETRY SINGLE DETER COLLECTIO 03019 LISA Gordon N 4 G G CAPILLARY BLOOD SPECIMEN ADMN SET A7003 YOUR YOUR SM VOL 4 PHARMACY PHARMACY [facility] PNEUMAT NEBULIZR DISPBL NEBULIZER E0570 HOLDEN HATCH WITH 4 HOME HOME COMPRESSO MEDICAL MEDICAL R EQUIPME EQUIPME RADIOLOGI 60300 SHIRA SILVA C EXAM 4 [facility] CHEST 2 INC INC VIEWS FRONTAL&L ATERAL NONINVASI 37821 FAMILY FAMILY VE 3 CARE CARE EAR/PULSE ASSOCIATE ASSOCIATE OXIMETRY S S SINGLE DETER BLOOD 96465 MULBERRY MULBERRY COUNT 3 NEW NEW COMPLETE AUTO&AUTO DIFRNTL WBC BLOOD 00713 FAMILY LISA COUNT 3 CARE PAUL COMPLETE ASSOCIATE AUTO&AUTO S DIFRNTL WBC COLLECTIO 43041 FAMILY LISA N 3 CARE PAUL CAPILLARY [...] NON-INS RX INFUS CATH PER WK RADEX 36360 [facility] 3 Y Y [facility] MINIMUM 3 VIEWS RADEX 95125 SYL HAYESCHER SPINE 3 MARA MARA LUMBOSACR AL 2/3 VIEWS RADEX 79295 SHIRA SILVA SPINE 3 [facility] LUMBOSACR INC INC AL MINIMUM 4 VIEWS URNLS DIP 43123 LISA J LISA J 3 G G STICK/TAB LET RGNT NON-AUTO W/O MICRSCP SUPPLIES A4221 BIORX BIORX FOR MAINT 3 NON-INS RX INFUS CATH PER WK INJECTION J7185 BIORX BIORX FACTOR 3 VIII PER IU ORTHOTIC 27443 SHIRA SILVA MGMT&DAREN 3 [facility] [place] UXTR INC INC LXTR&/TRN K EA 15 ELB ORTH L3760 ADVANCED ADVANCED W/ADJ 3 TECHNOLOG TECHNOLOG LOCK JNT IES INC IES INC PRFAB W/FIT&ADJ TYPE SUPPLIES A4221 BIORX BIORX FOR MAINT 3 NON-INS RX INFUS CATH PER WK INJ AHF/ J7186 BIORX BIORX VWF CMPLX 3 PER FACTOR VIII IU BLOOD 24001 MULBERRY MULBERRY COUNT 3 NEW NEW COMPLETE AUTO&AUTO DIFRNTL WBC SUPPLIES A4221 BIORX BIORX FOR MAINT 2 NON-INS RX INFUS CATH PER WK INJ AHF/ J7186 BIORX BIORX VWF CMPLX 2 PER FACTOR VIII IU INJ AHF/ J7186 BIORX BIORX VWF CMPLX 2 PER FACTOR VIII IU RADEX 77974 [place] CHEPE ELBOW 2 MEDICAL AMBROSIO COMPLETE SERV MINIMUM 3 FOUNDATIO VIEWS N IIV3 09726 SHIRA SHIRA VACCINE 2 [facility] VIRUS 0.5 ML DOSAGE IM USE E-STIM G0283 SHIRA SILVA 1/> AREAS 2 [facility] OTH THAN INC INC WND CARE PART TX PLAN APPLICATI 87709 SHIRA SILVA ON 2 [facility] MODALITY INC INC 1/> AREAS HOT/COLD PACKS MANUAL 77189 SHIRA SILVA THERAPY 2 [facility] TQS 1/> INC INC REGIONS EACH 15 MINUTES APPL 34213 SHIRA SILVA MODALITY 2 [facility] 1/> AREAS INC INC ULTRASOUN D EA 15 MIN INJ AHF/ J7186 BIORX BIORX VWF CMPLX 2 PER FACTOR VIII IU APPL 00973 SHIRA SILVA MODALITY 2 [facility] 1/> AREAS INC INC ULTRASOUN D EA 15 MIN MANUAL 15632 SHIRA SILVA THERAPY 2 [facility] TQS 1/> INC INC REGIONS EACH 15 MINUTES APPLICATI 01245 SHIRA SILVA ON 2 [facility] MODALITY INC INC 1/> AREAS HOT/COLD PACKS E-STIM G0283 SHIRA SILVA 1/> AREAS 2 [facility] OTH THAN INC INC WND CARE PART TX PLAN INJ AHF/ J7186 BIORX BIORX VWF CMPLX 2 PER FACTOR VIII IU APPL 83471 SHIRA SILVA MODALITY 2 [facility] 1/> AREAS INC INC ULTRASOUN D EA 15 MIN MANUAL 53582 SHIRA SILVA THERAPY 2 [facility] TQS 1/> INC INC REGIONS EACH 15 MINUTES E-STIM G0283 SHIRA SILVA 1/> AREAS 2 [facility] OTH THAN INC INC WND CARE PART TX PLAN APPLICATI 87591 SHIRA SILVA ON 2 [facility] MODALITY INC INC 1/> AREAS HOT/COLD PACKS APPLICATI 99014 SHIRA SHIRA ON 2 [facility] MODALITY INC INC 1/> AREAS HOT/COLD PACKS E-STIM G0283 SHIRA SHIRA 1/> AREAS 2 [facility] OTH THAN INC INC WND CARE PART TX PLAN MANUAL 93456 SHIRA SILVA THERAPY 2 [facility] TQS 1/> INC INC REGIONS EACH 15 MINUTES APPL 15194 SHIRA SILVA MODALITY 2 [facility] 1/> AREAS INC INC ULTRASOUN D EA 15 MIN APPL 82277 SHIRA SHIRA MODALITY 2 [facility] 1/> AREAS INC INC ULTRASOUN D EA 15 MIN MANUAL 94141 SHIRA SILVA THERAPY 2 [facility] TQS 1/> INC INC REGIONS EACH 15 MINUTES E-STIM G0283 SHIRA SILVA 1/> AREAS 2 [facility] OTH THAN INC INC WND CARE PART TX PLAN APPLICATI 86925 SHIRA SILVA ON 2 [facility] MODALITY INC INC 1/> AREAS HOT/COLD PACKS APPLICATI 07047 SHIRA SHIRA ON 2 [facility] MODALITY INC INC 1/> AREAS HOT/COLD PACKS E-STIM G0283 SHIRA SHIRA 1/> AREAS 2 [facility] OTH THAN INC INC WND CARE PART TX PLAN THERAPEUT 11596 SHIRA SHIRA IC PX 1/> 2 [facility] AREAS INC INC EACH 15 MIN EXERCISES MANUAL 55417 SHIRA SILVA THERAPY 2 [facility] TQS 1/> INC INC REGIONS EACH 15 MINUTES APPL 74577 SHIRA SILVA MODALITY 2 [facility] 1/> AREAS INC INC ULTRASOUN D EA 15 MIN INJ AHF/ J7186 BIORX BIORX VWF CMPLX 2 PER FACTOR VIII IU SEDIMENTA 14997 UNIVERSIT UNIVERSIT TION RATE 2 Y Y RBC HOSPITAL HOSPITAL AUTOMATED THROMBOPL 16458 [facility] ASTIN 2 Y Y TIME HOSPITAL HOSPITAL PARTIAL PLASMA/WH OLE BLOOD PROTHROMB 93653 [facility] IN TIME 2 Y Y HOSPITAL HOSPITAL BLOOD 26499 [facility] COUNT 2 Y Y COMPLETE [facility] AUTO&AUTO DIFRNTL WBC THER 80326 [facility] PROPH/DX 2 Y Y NJX IV HOSPITAL HOSPITAL PUSH SINGLE/1S T SBST/DRUG THERAPEUT 14532 [facility] IC 2 Y Y INJECTION HOSPITAL [facility] IV PUSH EACH NEW DRUG INJECTION J2270 [facility] MORPHINE 2 Y Y SULFATE [facility] HOSPITAL UP TO 10 MG RADEX 65474 [place] MERHAR ELBOW 2 MEDICAL GAR COMPLETE SERV MINIMUM 3 FOUNDATIO VIEWS N COLLECTIO 24061 [facility] N VENOUS 2 Y Y BLOOD [facility] VENIPUNCT URE INJECTION J2405 [facility] 2 Y Y [facility] ON HCL PER 1 MG C-REACTIV 31257 [facility] E PROTEIN 2 Y Y HOSPITAL [facility] APPLICATI 38219 SHIRA SILVA ON 2 [facility] MODALITY INC INC 1/> AREAS HOT/COLD PACKS MANUAL 98476 SHIRA SILVA THERAPY 2 [facility] TQS 1/> INC INC REGIONS EACH 15 MINUTES PHYSICAL 12979 SHIRA HEARDON THERAPY 2 [facility] EVALUATIO INC INC N ARTHROSCO 22513 CAM LEVY PY ELBOW 2 [facility] SURGICAL SYNOVECTO MY COMPLETE INJECTION J2270 [facility] MORPHINE 2 Y Y SULFATE [facility] UP TO 10 MG INJECTION J2250 [facility] 2 Y [facility] H[facility] PER 1 MG ARTHROSCO 51496 [facility]EVY PY ELBOW 2 [facility] SURGICAL DEBRIDEME NT EXTENSIVE INJECTION J2405 [facility] 2 Y Y [facility] ON HCL PER 1 MG BLOOD 92489 [facility] COUNT 2 Y Y COMPLETE [facility] AUTOMATED UNCLASSIF J3490 [facility] IED DRUGS 2 Y Y HOSPITAL [facility] RINGERS J7120 [facility] LACTATE 2 [facility] UP TO 1000 CC INJECTION J1170 [facility] 2 Y Y HYDROMORP [facility] KADY UP TO 4 MG INJECTION J3010 [facility] FENTANYL 2 Y Y CITRATE [facility] HOSPITAL 0.1 MG INJECTION J2710 [facility] 2 Y Y NEOSTIGMI [facility] NE METHYLSUL FATE UP TO 0.5 MG PROTHROMB 22569 [facility] IN TIME 2 Y Y HOSPITAL HOSPITAL ARTHRT 40008 CAM LEVY ELBOW 2 [facility] CAPSULAR EXCISION CAPSULAR RLS SPX THROMBOPL 09446 [facility] ASTIN 2 Y Y TIME HOSPITAL [facility] PARTIAL PLASMA/WH OLE BLOOD ANESTHESI 76760 [facility] REILLY A ELBOW [address] [facility] KING JOINT ANESTHESI DIAGNOSTI A PSC C ARTHROSCO PIC PARTIAL 76399 CAM LEVY EXCISION 2 [facility] [place] [address] [facility] HOSPITAL SURG 2 Y OF ERIC PATHOLOGY [facility] GROSS&SONU ROSCOPIC EXAM INJ [facility]/ J7186 BIORX BIORX VWF CMPLX 2 PER FACTOR VIII IU INJ [facility]/ J7186 BIORX BIORX VWF CMPLX 2 PER FACTOR VIII IU FACTOR J7190 BIORX BIORX VIII 2 ANTIHEMOP HILIC FACTOR HUMAN PER IU RADEX 31818 [place] CHE[place] ELBOW 2 MEDICAL AMBROSIO COMPLETE SERV MINIMUM 3 FOUNDATIO VIEWS N FACTOR J7190 BIORX BIORX VIII 2 ANTIHEMOP HILIC FACTOR HUMAN PER IU INJ [facility]/ J7186 BIORX BIORX VWF CMPLX 2 PER FACTOR VIII IU BLOOD 46902 [facility] COUNT 2 [place] COMPLETE AUTO&AUTO DIFRNTL WBC INJ F/ J7186 BIORX BIORX VWF CMPLX 2 PER FACTOR VIII IU PROTHROMB 18303 LISA Gordon IN TIME 2 BLOOD 43196 LISA Gordon COUNT 2 COMPLETE AUTO&AUTO DIFRNTL WBC RADIOLOGI 76642 SHIRA Desai EXAM 2 [facility] CHEST 2 INC INC VIEWS FRONTAL&L ATERAL TRANSFERA 08652 LISA Heidi HANA ANT SE 2 ASPARTATE AMINO AST SGOT TRANSFERA 02177 LISA Gordon SE 2 ALANINE AMINO ALT [...] ANTIHEMOP HILIC FACTOR HUMAN PER IU BLOOD 78660 CHAZ WARE COUNT 2 [place] COMPLETE AUTO&AUTO DIFRNTL WBC CULTURE 05252 COMBINED COMBINED BACTERIAL 2 PHYSICIAN PHYSICIAN S LA S LA QUANTTATI VE COLONY COUNT URINE URNLS DIP 37996 CHAZ OSORIOOND 2 [place] STICK/TAB LET RGNT NON-AUTO W/O MICRSCP LOCM Q9967 SHIRA SILVA 300-399 2 [facility] MG/ML INC INC IODINE CONCENTRA TION PER ML COMPREHEN 18283 SHIRA SILVA SIVE 2 [facility] METABOLIC INC INC PANEL URNLS DIP 50172 SHIRA SILVA 2 [facility] STICK/TAB INC INC LET REAGENT AUTO MICROSCOP Y BLOOD 69344 SHIRA SILVA COUNT 2 [facility] COMPLETE INC INC AUTO&AUTO DIFRNTL WBC PROTHROMB 51919 SHIRA RINALDI IN TIME 2 [facility] JR THO INC THROMBOPL 63545 SHIRA SILVA ASTIN 2 [facility] TIME INC INC PARTIAL PLASMA/[place] [address] SYL SYL ABDOMEN & 2 MARA MARA PELVIS W/CONTRAS T MATERIAL FACTOR J7190 BIORX BIORX VIII 2 ANTIHEMOP HILIC FACTOR HUMAN PER IU BLOOD 28279 FAMILY FAMILY COUNT 2 CARE CARE COMPLETE ASSOCIATE ASSOCIATE AUTO&AUTO S S DIFRNTL WBC FACTOR J7190 BIORX BIORX VIII 1 ANTIHEMOP HILIC FACTOR HUMAN PER IU ORTHOTIC 71786 SHIRA SILVA MGMT&DAREN 1 [facility] UXTR INC INC LXTR&/TRN K EA 15 ANK FT L1906 ADVANCED ADVANCED ORTHOS 1 TECHNOLOG TECHNOLOG MX-LIG IES INC IES INC ANK SUPT PREFB OFF SHELF BLOOD 32372 FAMILY FAMILY COUNT 1 CARE CARE COMPLETE ASSOCIATE ASSOCIATE AUTO&AUTO S S DIFRNTL WBC BLOOD 71916 FAMILY FAMILY COUNT 1 CARE CARE COMPLETE ASSOCIATE ASSOCIATE AUTO&AUTO S S DIFRNTL WBC IAADIADOO 59628 FAMILY MULBERRY 1 CARE NEW STREPTOCO ASSOCIATE CCUS S GROUP A IAADIADOO 86591 FAMILY MULBERRY 1 CARE NEW STREPTOCO ASSOCIATE CCUS S GROUP A BLOOD 68869 FAMILY FAMILY COUNT 1 CARE CARE COMPLETE ASSOCIATE ASSOCIATE AUTO&AUTO S S DIFRNTL WBC BLOOD 36216 SHIRA SILVA OCCULT 1 [facility] PEROXIDAS INC INC E ACTV QUAL [place]ECES 1-3 [place] [address] SHIRA SILVA CLOSTRIDI 1 [facility] [place] [address] SHIRA SILVA ROTAVIRUS 1 [facility] INC INC IAADIADOO 75790 FAMILY YAJAIRA 1 CARE R H STREPTOCO ASSOCIATE CCUS S GROUP A IAADIADOO 17388 FAMILY LISA J 1 CARE STREPTOCO ASSOCIATE CCUS S GROUP A RADIOLOGI 80621 [place] [facility] C EXAM 0 MEDICAL MARA CHEST 2 IMAGING VIEWS ASS FRONTAL&L ATERAL BLOOD 57905 FAMILY MULBERRY COUNT 0 CARE NEW COMPLETE ASSOCIATE AUTO&AUTO S DIFRNTL WBC IAADIADOO 46036 FAMILY MULBERRY 0 CARE NEW STREPTOCO ASSOCIATE CCUS S GROUP A ARTHROSCO 13439 MATEO RÍOS PY ANKLE 0 MEDICAL ALLEN SURGICAL SERV DEBRIDEME FOUNDATIO NT LIMITED ANESTHESI 73957 MATEO MAY A 0 MEDICAL JOSH ARTHROSCO SERVICES PIC PROCEDURE ANKLE & FOOT OTH LOCAL 8087 [facility] 0 Y Y EXCISION/ HOSPITAL HOSPITAL DESTRUCTI ON LESION ANK JOINT IAADIADOO 73307 FAMILY LISA J 0 CARE STREPTOCO ASSOCIATE CCUS S GROUP A BLOOD 26173 FAMILY FAMILY COUNT 0 CARE CARE COMPLETE ASSOCIATE ASSOCIATE AUTO&AUTO S S DIFRNTL WBC RADEX 69178 [facility] ANKLE 0 Y Y [facility] MINIMUM 3 VIEWS 25 99905 LAB SHANI LAB SHANI HYDROXY 0 AMERIC AMERIC INCLUDES HOLDING HOLDING FRACTIONS IF PERFORMED THERAPEUT 42019 [facility] IC PX 1/> 0 Y [facility] E[facility] 15 MIN EXERCISES PHYSICAL 95819 [facility] 9 [facility] THER[facility] 89444 SHIRA SILVA IC PX 1/> 9 [facility] AREAS INC INC EACH 15 MIN EXERCISES APPLICATI 07801 SHIRA SILVA ON 9 [facility] MODALITY INC INC 1/> AREAS HOT/COLD PACKS APPL 61274 SHIRA SILVA MODALITY 9 [facility] 1/> AREAS INC INC ULTRASOUN D EA 15 MIN APPL 41060 SHIRA SILVA MODALITY 9 [facility] 1/> AREAS INC INC ELEC STIMJ UNATTENDE D APPL 14548 SHIRA SILVA MODALITY 9 [facility] 1/> AREAS INC INC ULTRASOUN D EA 15 MIN APPL 71568 SHIRA SILVA MODALITY 9 [facility] 1/> AREAS INC INC ELEC STIMJ UNATTENDE D APPLICATI 91373 SHIRA SILVA ON 9 [facility] MODALITY INC INC 1/> AREAS HOT/COLD PACKS THERAPEUT 38417 SHIRA SILVA IC PX 1/> 9 [facility] AREAS INC INC EACH 15 MIN EXERCISES RADEX 38656 [place] SYL, ELBOW 9 MEDICAL ROLANDO COMPLETE IMAGING MINIMUM 3 ASSOCIATE VIEWS S THERAPEUT 22885 SHIRA SILVA IC PX 1/> 9 [facility] AREAS INC INC EACH 15 MIN EXERCISES APPLICATI 74951 SHIRA SILVA ON 9 [facility] MODALITY INC INC 1/> AREAS HOT/COLD PACKS APPL 08144 SHIRA HEARDON MODALITY 9 [facility] 1/> AREAS INC INC ULTRASOUN D EA 15 MIN APPL 95067 SHIRA SILVA MODALITY 9 [facility] 1/> AREAS INC INC ELEC STIMJ UNATTENDE D APPL 71779 SHIRA SILVA MODALITY 9 [facility] 1/> AREAS INC INC ULTRASOUN D EA 15 MIN APPL 42848 SHIRA SILVA MODALITY 9 [facility] 1/> AREAS INC INC ELEC STIMJ UNATTENDE D APPLICATI 49769 SHIRA SILVA ON 9 [facility] MODALITY INC INC 1/> AREAS HOT/COLD PACKS BLOOD 23719 FAMILY MULBERRY, COUNT 9 CARE ALEKSANDR Walker COMPLETE ASSOCIATE AUTO&AUTO S DIFRNTL WBC PHYSICAL 57597 SHIRA SILVA THERAPY 9 [facility] EVALUATIO INC INC N APPL 35368 SHIRA SILVA MODALITY 9 [facility] 1/> AREAS INC INC IONTOPHOR ESIS EA 15 MIN BLOOD 53239 FAMILY YAJAIRA, COUNT 9 CARE Deneen BALES COMPLETE ASSOCIATE AUTO&AUTO S DIFRNTL WBC INITIAL 03902 [facility] OBSERVATI 9 Y Y ON HOSPITAL HOSPITAL CARE/DAY 30 MINUTES INJECTION J2997 [facility] 9 Y [facility] RECOMBINA NT 1 MG INJECTION J3010 [facility] [place] 9 Y Y [facility] 0.1 MG UNCLASSIF J3490 [facility] IED DRUGS 9 Y [facility] INJECTION J2175 [facility] 9 Y Y [facility] E HCL PER 100 MG INJECTION J2795 [facility] 9 Y Y [facility] NE HYDROCHLO RIDE 1 MG EXCISION 70904 MATEO CAM, RADIAL 9 [facility]ICAL [facility] SERV FOUNDATIO RAD RESCJ 37565 MATEO AVIMOI CAPSL 9 [facility] TISS&HTRT SERV PC BONE FOUNDATIO ELBW CONTRCT ANESTHESI 55285 MATEO GARRISON, A 9 MEDICAL JULIETTE C OPEN/SURG SERVICES ARTHRS RADICAL PROC ELBOW INJECTION J2270 [facility] MORPHINE 9 Y Y SULFATE [facility] HOSPITAL UP TO 10 MG ARTHROSCO 38008 [facility] PY ELBOW 9 Y Y SURGICAL [facility] SYNOVECTO MY COMPLETE UNLISTED 89676 [facility] PROCEDURE 9 Y Y [facility] ARTHROSCO PY INJECTION J2405 [facility] 9 [facility] PER 1 MG DECALCIFI 03354 [facility] CATION 9 Y [place] [address] [facility] SURG 9 Y Y PATHOLOGY [facility] GROSS&SONU ROSCOPIC EXAM FACTOR 78070 [facility] INHIBITOR 9 Y Y TEST [facility] BLOOD 79234 [facility] COUNT 9 Y Y [facility] AUTO&AUTO DIFRNTL WBC RADIOLOGI 66838 [facility] Giselle MELGOZA EXAM 9 Y OF [facility] CHEST 2 [facility] FRONTAL&L ATERAL INSJ PRPH 69097 [facility] CVC W/O 9 Y Y [facility] [place] FABRICATOR AGE 6 YR/> RADEX 35804 [facility] ELBOW [address] [facility] BLOOD 42665 FAMILY LISA, J COUNT 9 CARE G COMPLETE ASSOCIATE AUTO&AUTO S DIFRNTL WBC APPL 17128 SHIRA SILVA MODALITY 9 [facility] 1/> AREAS INC INC ULTRASOUN D EA 15 MIN THERAPEUT 69598 SHIRA SILVA IC PX 1/> 9 [facility] AREAS INC INC EACH 15 MIN EXERCISES APPL 62222 SHIRA SILVA MODALITY 9 [facility] 1/> AREAS INC INC IONTOPHOR ESIS EA 15 MIN APPL 05-18-200 29085 SHIRA SILVA MODALITY 9 [facility] 1/> AREAS INC INC IONTOPHOR ESIS EA 15 MIN PHYSICAL 46918 SHIRA SILVA THERAPY 9 [facility] EVALUATIO INC INC N THERAPEUT 63876 SHIRA SILVA IC PX 1/> 9 [facility] AREAS INC INC EACH 15 MIN EXERCISES APPL 59677 SHIRA SILVA MODALITY 9 [facility] 1/> AREAS INC INC ULTRASOUN D EA 15 MIN MANUAL 92486 SHIRA SILVA THERAPY 9 [facility] TQS 1/> INC INC REGIONS EACH 15 MINUTES RADIOLOGI 58258 Giselle RILEY 9 MEDICAL SERENITY N EXAMINATI SERV ON KNEE FOUNDATIO 1/2 VIEWS RADIOLOGI 08898 Giselle RILEY 9 MEDICAL SERENITY N EXAMINATI SERV ON KNEE 3 FOUNDATIO VIE[place] ANY [address] [place] C Heidi STREETERT LOWER 9 SYL MARSHALL EXTREM W/O CONTRAST MATRL BLOOD 78811 FAMILY MULBERRY, COUNT 9 CARE ALEKSANDR T COMPLETE ASSOCIATE AUTO&AUTO S DIFRNTL WBC COLLECTIO 09294 FAMILY MULBERRY, N 9 CARE ALEKSANDR T CAPILLARY ASSOCIATE BLOOD S SPECIMEN RADIOLOGI 69112 SHIRA SILVA C 9 [facility] EXAMINATI INC INC ON KNEE 3 VIEWS BLOOD 34561 FAMILY MULBERRY, COUNT 9 CARE ALEKSANDR T COMPLETE ASSOCIATE AUTO&AUTO S DIFRNTL WBC COLLECTIO 18942 FAMILY MULBERRY, N 9 CARE ALEKSANDR T CAPILLARY ASSOCIATE BLOOD S SPECIMEN RADEX 56695 UNIVERS[facility] DIPTI, ELBOW 2 9 Y OF JENELLE A VIEWS [facility] THERAPEUT 27229 SHIRA SILVA IC PX 1/> 9 [facility] AREAS INC INC EACH 15 MIN EXERCISES APPLICATI 60957 SHIRA SILVA ON 9 [facility] MODALITY INC INC 1/> AREAS HOT/COLD PACKS APPL 58405 SHIRA SILVA MODALITY 9 [facility] 1/> AREAS INC INC ELEC STIMJ UNATTENDE D APPL 68343 SHIRA SILVA MODALITY 9 [facility] 1/> AREAS INC INC ELEC STIMJ UNATTENDE D APPLICATI 43054 SHIRA SILVA ON 9 [facility] MODALITY INC INC 1/> AREAS HOT/COLD PACKS THERAPEUT 88219 SHIRA SILVA IC PX 1/> 9 [facility] AREAS INC INC EACH 15 MIN EXERCISES URNLS DIP 17274 FAMILY YAJAIRA, 9 CARE R NII STICK/TAB ASSOCIATE LET RGNT S NON-AUTO W/O MICRSCP CULTURE 73007 COMBINED COMBINED BACTERIAL 9 PHYSICIAN PHYSICIAN S LAB S LAB QUANTTATI VE COLONY COUNT URINE URNLS DIP 32278 FAMILY YAJAIRA, 9 CARE R NII STICK/TAB ASSOCIATE LET RGNT S NON-AUTO W/O MICRSCP THERAPEUT 01447 SHIRA SILVA IC PX 1/> 9 [facility] AREAS INC INC EACH 15 MIN EXERCISES APPLICATI 28467 SHIRA SILVA ON 9 [facility] MODALITY INC INC 1/> AREAS HOT/COLD PACKS APPL 24428 SHIRA SILVA MODALITY 9 [facility] 1/> AREAS INC INC ELEC STIMJ UNATTENDE D THERAPEUT 52982 SH[facility] SILVA IC PX /> 9 [facility] AREAS INC INC EACH 15 MIN EXERCISES MANUAL 35887 [facility]VA THERAPY 9 [facility] TQS 1/> INC INC REGIONS EACH 15 MINUTES MANUAL 80960 [facility] THERAPY 9 [facility] TQS 1/> INC INC REGIONS EACH 15 MINUTES THERAPEUT 84532 SHIRA SILVA IC PX 1/> 9 [facility] AREAS INC INC EACH 15 MIN EXERCISES APPL 41847 SH[facility] SILVA MODALITY 9 [facility] 1/> AREAS INC INC ELEC STIMJ UNATTENDE D APPLICATI 96242 [facility]ILVA ON 9 [facility] MODALITY INC INC 1/> AREAS HOT/COLD PACKS THERAPEUT 53343 SHIRA SILVA IC PX 1/> 9 [facility] AREAS INC INC EACH 15 MIN EXERCISES MANUAL 77289 [facility] SILVA THERAPY 9 [facility] TQS 1/> INC INC REGIONS EACH 15 MINUTES THERAPEUT 64503 SH[facility]A SILVA IC PX 1/> 9 [facility] AREAS INC INC EACH 15 MIN EXERCISES PHYSICAL 71800 [facility] THERAPY 9 [facility] EVALUATIO INC INC N ANKLE L1930 PROSTHETI PROSTHETI FOOT 8 C&ORTHOTI C&ORTHOTI ORTHOTIC C C PLASTIC/O ASSOCIATE ASSOCIATE MATL S,[employer] S,LLC PREFAB RADEX 45777 [facility] 8 Y Y [facility] MINIMUM 3 VIEWS HOSPITAL 80371 [facility], DISCHARGE 8 [facility] DAY SERV MANAGEMEN F[facility] T 30 MIN/< SBSQ 48850 [facility] 8 [facility]/DAY [place] [address] [place] [address] [facility], ABDOMEN 8 MEDICAL MIKEY W/CONTRAS SERV T FOUNDATIO MATERIAL INITIAL 65691 HI OLY INPATIENT 8 MEDICAL , JANAE CONSULT SERV R NEW/ESTAB FOUNDATIO PT [address] PELVIS [address] [facility], 8 MEDICAL MIKEY W/CONTRAS SERV T FOUNDATIO MATERIAL INFUSION 0011 [facility] 8 Y Y [facility] INITIAL 21922 [facility] 8 [facility]/DAY SERV 70 FOUNDATIO MINUTES BLOOD 93032 FAMILY YAJAIRA, COUNT 8 CARE R NII COMPLETE ASSOCIATE AUTO&[place] [address] [facility] S[facility]VA ABDOMEN 8 [facility] W/CONTRAS INC INC T MATERIAL 3D 15510 SHIRA HEARDON RENDERING 8 [facility] INC INC W/INTERP& POSTPROC DIFF WORK STATION CT PELVIS 66146 [facility] SILVA 8 [facility] W/CONTRAS INC INC T MATERIAL BLOOD 50643 FAMILY MULBERRY, COUNT 8 CARE ALEKSANDR Walker COMPLETE ASSOCIATE AUTO&AUTO S DIFRNTL WBC BLOOD 63051 Heidi REDD COUNT 8 CARE G COMPLETE ASSOCIATE AUTO&AUTO S DIFRNTL WBC THROMBOPL 45863 COMBINED COMBINED ASTIN 8 PHYSICIAN PHYSICIAN TIME S LAB S LAB PARTIAL PLASMA/WH OLE BLOOD PROTHROMB 80355 Heidi REDD IN TIME 8 CARE G ASSOCIATE S Encounters Encounter Start End Date Code Location Performer Type Date OFFICE 57006 FAMILY YAJAIRA OUTPATIEN 7 7 CARE T VISIT ASSOCIATE 15 S MINUTES OFFICE 42085 FAMILY WARE OUTPATIEN 7 7 CARE T VISIT ASSOCIATE 15 S MINUTES OFFICE 43489 FAMILY YAJAIRA OUTPATIEN 7 7 CARE T VISIT ASSOCIATE 15 S MINUTES OFFICE 96585 FAMILY MULBERRY OUTPATIEN 6 6 CARE T VISIT ASSOCIATE 15 S MINUTES OFFICE 41144 FAMILY YAJAIRA OUTPATIEN 6 6 CARE T VISIT ASSOCIATE 15 S MINUTES EMERGENCY 23561 6 6 [facility] DEPARTMEN E T VISIT HOSPITALS HIGH/URGE NT SEVERITY EMERGENCY 61084 [facility] 6 6 MEDICAL DEPARTMEN SERV T VISIT FOUNDATIO LOW/MODER N SEVERITY HOSPITAL - 6 6 [facility] OUTPATIEN E T HOSPITALS OFFICE 11978 [facility] HARP OUTPATIEN 6 6 PHYSICIAN WENDY T NEW 10 S GROUP MINUTES OFFICE 68499 FAMILY ISAMAR OUTPATIEN 6 6 CARE T VISIT ASSOCIATE 15 S MINUTES OFFICE 60055 FAMILY ISAMAR OUTPATIEN 6 6 CARE TAR T VISIT ASSOCIATE 15 S MINUTES OFFICE 32057 FAMILY ISAMAR OUTPATIEN 6 6 CARE TAR T VISIT ASSOCIATE 15 S MINUTES OFFICE 13553 FAMILY CROWDY OUTPATIEN 6 6 CARE CRI T VISIT ASSOCIATE 15 S MINUTES OFFICE 17826 FAMILY MULBERRY OUTPATIEN 6 6 CARE NEW T VISIT ASSOCIATE 15 S MINUTES OFFICE 40102 FAMILY ISAMAR OUTPATIEN 6 6 CARE TAR T VISIT ASSOCIATE 15 S MINUTES OFFICE 68406 FAMILY LISA OUTPATIEN 6 6 CARE PAUL T VISIT ASSOCIATE 15 S MINUTES OFFICE 58324 FAMILY ISAMAR OUTPATIEN 6 6 CARE TAR T VISIT ASSOCIATE 15 S MINUTES OFFICE 57178 FAMILY LISA OUTPATIEN 6 6 CARE PAUL T VISIT ASSOCIATE 15 S MINUTES OFFICE 68673 FAMILY LISA OUTPATIEN 6 6 CARE PAUL T VISIT ASSOCIATE 15 S MINUTES HOSPITAL UNIVERSIT - 6 6 Y [facility] EMERGENCY [address] [place] ECKERLINE 6 6 MEDICAL JR [facility] SERV T VISIT FOUNDATIO MODERATE N SEVERITY OFFICE 08255 FAMILY YAJAIRA OUTPATIEN 6 6 CARE R H T VISIT ASSOCIATE 15 S MINUTES OFFICE 26325 FAMILY ISAMAR OUTPATIEN 6 6 CARE TAR T VISIT ASSOCIATE 15 S MINUTES EMERGENCY 83341 YAYA PAZ 6 6 PHYSICIAN U NAM [facility], [facility] VISIT MODERATE SEVERITY OFFICE 85047 FAMILY LISA OUTPATIEN 6 6 CARE PAUL T VISIT ASSOCIATE 10 S MINUTES HOSPITAL SH[facility]A - 6 6 [facility]EN [facility] SHIRA - 6 6 [facility] SHIRA - 6 6 [facility] OUTPATIEN [facility] SHIRA - 6 6 [facility] OUTPATIEN [facility] T OFFICE 33342 FAMILY LISA OUTPATIEN 6 6 CARE PAUL T VISIT ASSOCIATE 15 S MINUTES HOSPITAL SH[facility]A - 6 6 [facility]PATIEN [facility] SHIRA - 6 6 [facility] H[facility] SHIRA - 6 6 [facility]PATI[facility] SHIRA - 6 6 [facility] OUTPATIEN INC HOSPITAL [facility] - 6 6 [facility] OUTPATIEN INC OFFICE 72437 FAMILY LISA OUTPATIEN 6 6 CARE PAUL T VISIT ASSOCIATE 15 S MINUTES EMERGENCY 30896 YAYA PAZ 6 6 PHYSICIAN Julita BROWNING [facility] S, [facility] T VISIT HIGH/URGE NT SEVERITY OFFICE 65640 FAMILY LSIA OUTPATIEN 6 6 CARE PAUL T VISIT ASSOCIATE 15 S MINUTES EMERGENCY 62795 YAYA MARTINEZ, 6 6 PHYSICIAN JR HANSEN [facility] S, [facility] T VISIT HIGH/URGE NT SEVERITY OFFICE 23254 FAMILY YAJAIRA OUTPATIEN 6 6 CARE R H T VISIT ASSOCIATE 15 S MINUTES OFFICE 63133 FAMILY CROWDY OUTPATIEN 6 6 CARE CRI T VISIT ASSOCIATE 15 S MINUTES OFFICE 79993 FAMILY CROWDY OUTPATIEN 6 6 CARE CRI T VISIT ASSOCIATE 15 S MINUTES OFFICE 93079 FAMILY YAJAIRA OUTPATIEN 6 6 CARE R H T VISIT ASSOCIATE 15 S MINUTES OFFICE 36515 FAMILY CROWDY OUTPATIEN 6 6 CARE CRI T VISIT ASSOCIATE 15 S MINUTES OFFICE 26331 FAMILY LISA OUTPATIEN 5 5 CARE PAUL T VISIT ASSOCIATE 15 S MINUTES OFFICE 07531 FAMILY CROWDY OUTPATIEN 5 5 CARE CRI T VISIT ASSOCIATE 15 S MINUTES OFFICE 17723 FAMILY YAJAIRA OUTPATIEN 5 5 CARE R H T VISIT ASSOCIATE 15 S MINUTES OFFICE 89767 FAMILY CROWDY OUTPATIEN 5 5 CARE CRI T VISIT ASSOCIATE 15 S MINUTES OFFICE 60152 FAMILY CROWDY OUTPATIEN 5 5 CARE CRI T VISIT ASSOCIATE 15 S MINUTES OFFICE 66222 [facility] OUTPATIEN 5 5 PHYSICIAN JAM T VISIT S GROUP 15 MINUTES EMERGENCY 43809 YAYA SKYEY [address] [facility] T VISIT MODERATE SEVERITY OFFICE 42749 [facility] PET[facility] OUTPATIEN 5 5 PHYSICIAN JAM T NEW 20 S GROUP MINUTES HOSPITAL [facility] - 5 5 [facility] OUTPATIEN INC T OFFICE 64751 FAMILY LISA OUTPATIEN 5 5 CARE PAUL T VISIT ASSOCIATE 25 S MINUTES OFFICE 03920 FAMILY YAJAIRA OUTPATIEN 5 5 CARE R H T VISIT ASSOCIATE 15 S MINUTES OFFICE 32494 [place] MICHOACANO OUTPATIEN 5 5 MEDICAL ALLEN T VISIT SERV 25 FOUNDATIO MINUTES N OFFICE 00931 UNIVERSIT OUTPATIEN 5 5 Y T VISIT HOSPITAL 10 MINUTES HOSPITAL [facility]ERSIT - 5 5 Y [facility] T OFFICE 51452 FAMILY YAJAIRA OUTPATIEN 5 5 CARE R H T VISIT ASSOCIATE 15 S MINUTES OFFICE 48821 FAMILY CROWDY OUTPATIEN 5 5 CARE CRI T VISIT ASSOCIATE 15 S MINUTES OFFICE 50628 FAMILY LISA J OUTPATIEN 5 5 CARE G T VISIT ASSOCIATE 15 S MINUTES EMERGENCY 30311 [facility] CEFERINO 5 5 [facility] T VISIT P LOW/MODER SEVERITY HOSPITAL [facility] - 5 5 [facility] OUTPATIEN INC T EMERGENCY 11379 [facility] 5 5 [facility] DEPARTMEN INC T VISIT MODERATE SEVERITY OFFICE 22691 FAMILY MULBERRY OUTPATIEN 4 4 CARE NEW T VISIT ASSOCIATE 15 S MINUTES OFFICE 70070 FAMILY YAJAIRA OUTPATIEN 4 4 CARE R H T VISIT ASSOCIATE 15 S MINUTES OFFICE 15013 FAMILY MULBERRY OUTPATIEN 4 4 CARE NEW T VISIT ASSOCIATE 15 S MINUTES OFFICE 23525 FAMILY OUTPATIEN 4 4 CARE T VISIT ASSOCIATE 15 S MINUTES OFFICE 77053 FAMILY YAJAIRA OUTPATIEN 4 4 CARE R H T VISIT ASSOCIATE 15 S MINUTES OFFICE 70262 LISA J OUTPATIEN 4 4 G T VISIT 15 MINUTES OFFICE 54075 MULBERRY MULBERRY OUTPATIEN 4 4 NEW NEW T VISIT 15 MINUTES OFFICE 13531 CINTRON CINTRON OUTPATIEN 4 4 ERIC ERIC T VISIT 15 MINUTES OFFICE 74636 MULBERRY MULBERRY OUTPATIEN 4 4 NEW NEW T VISIT 15 MINUTES OFFICE 28827 LISA Gordon LISA J OUTPATIEN 4 4 G G T VISIT 15 MINUTES HOSPITAL SH[facility]A - 4 4 [facility] OUTPATIEN INC T OFFICE 18422 FAMILY OUTPATIEN 3 3 CARE T VISIT ASSOCIATE 15 S MINUTES OFFICE 93679 MULBERRY MULBERRY OUTPATIEN 3 3 NEW NEW T VISIT 15 MINUTES OFFICE 67449 FAMILY LISA OUTPATIEN 3 3 CARE PAUL T VISIT ASSOCIATE 15 S MINUTES OFFICE 95566 [place] ROMOND OUTPATIEN 3 3 MEDICAL EDW T VISIT SERV 25 FOUNDATIO MINUTES N OFFICE 64149 YAJAIRA YAJAIRA OUTPATIEN 3 3 R H R H T VISIT 15 MINUTES OFFICE 43496 CINTRON CINTRON OUTPATIEN 3 3 ERIC ERIC T VISIT 15 MINUTES HOSPITAL UNIVERSIT - 3 3 Y OUTPATI HOSPITAL T OFFICE 75095 KMSF ABDULAZIZ OUTPATIEN 3 3 NURSE ERIC T VISIT PRACTITIO 15 NER GR MINUTES OFFICE 64430 LISA Gordon OUTPATIEN 3 3 G G T VISIT 10 MINUTES HOSPITAL SHIRA - 3 3 [facility] OUTPATIEN [facility] T OFFICE 79995 LISA Gordon OUTPATIEN 3 3 G G T VISIT 15 MINUTES HOSPITAL SHIRA - 3 3 [facility] T OFFICE 32484 ABDULAZIZ CINTRON OUTPATIEN 3 3 ERIC ERIC T VISIT 15 MINUTES OFFICE 11489 MULBERRY MULBERRY OUTPATIEN 3 3 NEW NEW T VISIT 15 MINUTES OFFICE 51472 SHIRA SILVA OUTPATIEN 2 2 ME [facility] T VISIT CENTER CENTER 10 MINUTES [facility] UNIVERSIT [facility] 2 2 Y [facility] SHIRA - 2 2 [facility] UNIVERSIT - [address] [facility] EMERGENCY 78616 MATEO [place] 2 2 MEDICAL NEW DEPARTMEN SERV T VISIT FOUNDATIO MODERATE SEVERITY EMERGENCY 11562 UNIVERSIT DEPT 2 2 Y VISIT HOSPITAL HIGH SEVERITY& THREAT [facility] SHIRA - 2 2 [facility] OUTPATIEN [facility] T OFFICE 04923 ABDULAZIZ CINTRON OUTPATIEN 2 2 ERIC ERIC T VISIT 15 MINUTES OFFICE 91334 BRENDA GUTIERREZ CONSULTAT 2 2 LUCIAN LUCIAN ION NEW/ESTAB PATIENT 40 MIN HOSPITAL UNIVERSIT - 2 2 Y [facility] T OFFICE 41551 CAM LEVY OUTPATIEN 2 2 SRI SRI T VISIT 25 MINUTES HOSPITAL UNIVERSIT - 2 2 Y [facility] T OFFICE 32521 FAMILY OUTPATIEN 2 2 CARE T VISIT ASSOCIATE 15 S MINUTES OFFICE 07128 ABDULAZIZ CINTRON OUTPATIEN 2 2 ERIC ERIC T VISIT 15 MINUTES OFFICE 02305 WARE WARE OUTPATIEN 2 2 KATIUSKA KATIUSKA T VISIT 15 MINUTES OFFICE 46549 LISA Gordon OUTPATIEN 2 2 T VISIT 15 MINUTES HOSPITAL SHIRA - 2 2 [facility] OUTPATIEN INC T OFFICE 29403 LISA Gordon OUTPATIEN 2 2 T VISIT 15 MINUTES OFFICE 31470 WARE WARE OUTPATIEN 2 2 KATIUSKA KATIUSKA T VISIT 15 MINUTES EMERGENCY 67824 SHIRA 2 2 [facility] DEPARTMEN INC T VISIT MODERATE SEVERITY HOSPITAL SH[facility]A - 2 2 [facility] OUTPATIEN INC T OFFICE 89104 FAMILY WARE OUTPATIEN 2 2 CARE KATIUSKA T VISIT ASSOCIATE 15 S MINUTES HOSPITAL SHIRA - 1 1 [facility] OUTPATIEN INC T OFFICE 84146 ABDULAZIZ CINTRON OUTPATIEN 1 1 ERIC ERIC T VISIT 15 MINUTES OFFICE 07918 MARINE HAWTHORNE OUTPATIEN 1 1 YESI YESI T NEW 30 MINUTES OFFICE 15687 FAMILY MULBERRY OUTPATIEN 1 1 CARE NEW T VISIT ASSOCIATE 15 S MINUTES OFFICE 49990 FAMILY MULBERRY OUTPATIEN 1 1 CARE NEW T VISIT ASSOCIATE 15 S MINUTES HOSPITAL SHIRA - 1 1 [facility] OUTPATIEN INC T OFFICE 39301 FAMILY MULBERRY OUTPATIEN 1 1 CARE NEW T VISIT ASSOCIATE 15 S MINUTES OFFICE 84566 FAMILY YAJAIRA OUTPATIEN 1 1 CARE R H T VISIT ASSOCIATE 15 S MINUTES OFFICE 82144 FAMILY BRENNANEET OUTPATIEN 1 1 CARE R H T VISIT ASSOCIATE 15 S MINUTES OFFICE 33829 FAMILY GONZALEZ J OUTPATIEN 1 1 CARE T VISIT ASSOCIATE 15 S MINUTES OFFICE 24177 JOHN CINTRON OUTPATIEN 1 1 NURSE ERIC T VISIT PRACTITIO 15 NER GR MINUTES OFFICE 17420 FAMILY OCONNOR OUTPATIEN 1 1 CARE NEW T VISIT ASSOCIATE 25 S MINUTES OFFICE 89585 MATEO RÍOS OUTPATIEN 1 1 MEDICAL ALLEN T VISIT SERV 15 FOUNDATIO MINUTES OFFICE 01983 FAMILY GONZALEZ J OUTPATIEN 0 0 CARE T VISIT ASSOCIATE 15 S MINUTES HOSPITAL SHIRA - 0 0 [facility] OUTPATIEN [facility] T OFFICE 91098 FAMILY YAJAIRA OUTPATIEN 0 0 CARE R H T VISIT ASSOCIATE 15 S MINUTES OFFICE 30794 FAMILY OCONNOR OUTPATIEN 0 0 CARE NEW T VISIT ASSOCIATE 15 S MINUTES HOSPITAL UNIVERSIT - 0 0 Y INPATIENT HOSPITAL OFFICE 86273 FAMILY LISA Gordon OUTPATIEN 0 0 CARE T VISIT ASSOCIATE 15 S MINUTES OFFICE 91680 MATEO RÍOS OUTPATIEN 0 0 MEDICAL ALLEN T VISIT SERV 10 FOUNDATIO MINUTES OFFICE 18223 FAMILY OCONNOR OUTPATIEN 0 0 CARE NEW T VISIT ASSOCIATE 15 S MINUTES HOSPITAL UNIVERSIT - 0 0 Y [facility] T OFFICE 41570 JOHN CINTRON, OUTPATIEN 0 0 NURSE JOSÉ Stephens T VISIT PRACTITIO 15 NER GROUP MINUTES OFFICE 09024 FAMILY GONZALEZ J OUTPATIEN 0 0 CARE G T VISIT ASSOCIATE 15 S MINUTES OFFICE 94166 FAMILY YAJAIRA, OUTPATIEN 0 0 CARE R NII T VISIT ASSOCIATE 15 S MINUTES OFFICE 48009 JOHN CINTRON, OUTPATIEN 0 0 NURSE JOSÉ Stephens T VISIT PRACTITIO 15 NER GROUP MINUTES OFFICE 01596 FAMILY BRENNANEET, OUTPATIEN 0 0 CARE R NII T VISIT ASSOCIATE 15 S MINUTES OFFICE 13041 FAMILY OCONNOR, OUTPATIEN 0 0 CARE ALEKSANDR T T VISIT ASSOCIATE 15 S MINUTES OFFICE 97114 FAMILY GONZALEZ J OUTPATIEN 0 0 CARE G T VISIT ASSOCIATE 15 S MINUTES OFFICE 64942 MATEO ANNY, OUTPATIEN 0 0 MEDICAL EDWARD T VISIT SERV 15 FOUNDATIO MINUTES OFFICE 98455 FAMILY CARSONT, OUTPATIEN 0 0 CARE R NII T VISIT ASSOCIATE 15 S MINUTES HOSPITAL UNIVERSIT - 0 0 Y [facility] T OFFICE 11151 FAMILY BRENNANEET, OUTPATIEN 9 9 CARE R NII T VISIT ASSOCIATE 15 S MINUTES HOSPITAL UNIVERSIT - 9 9 Y [facility] SHIRA - 9 9 [facility] OUTPATIEN [facility] SHIRA - 9 9 [facility] OUTPATIEN [facility] SHIRA - 9 9 [facility] OUTPATIEN [facility] T OFFICE 82770 FAMILY OCONNOR, OUTPATIEN 9 9 CARE ALEKSANDR T T VISIT ASSOCIATE 15 S MINUTES OFFICE 55930 FAMILY BRENNANEET, OUTPATIEN 9 9 CARE R NII T VISIT ASSOCIATE 15 S MINUTES OFFICE 51414 ABEBEDreaMauricio ESTRADAROCKY OUTPATIEN 9 9 NURSE JOSÉ Stephens T VISIT PRACTITIO 10 NER GROUP MINUTES OFFICE 64043 FAMILY OCONNOR, OUTPATIEN 9 9 CARE ALEKSANDR T T VISIT ASSOCIATE 15 S MINUTES HOSPITAL SH[facility]A - 9 9 [facility] OUTPATIEN INC T OFFICE 88445 SH[facility]A OUTPATIEN 9 9 [facility] T VISIT INC 10 MINUTES HOME [facility], 9 9 HOME [facility] T [facility] UNIVERSIT [facility] 9 9 Y [facility] T HOME [facility], 9 9 HOME [facility] 84708 MATEO LEVY OUTPATIEN 9 9 MEDICAL BIMAL T VISIT SERV 15 FOUNDATIO MINUTES OFFICE 58661 Heidi REDD OUTPATIEN 9 9 CARE G T VISIT ASSOCIATE 15 S MINUTES OFFICE 45428 FAMILY GATES OUTPATIEN 9 9 CARE R NII T VISIT ASSOCIATE 15 S MINUTES OFFICE 34282 MATEO MCCORMICK OUTPATIPATRICA 9 9 MEDICAL EDWARD T VISIT SERV 15 FOUNDATIO MINUTES HOSPITAL SHIRA - 9 9 [facility] OUTPATIEN INC T OFFICE 85967 [place] KACI CONSULTBELEN 9 9 MEDICAL JULIETTE T ION SERV NEW/ESTAB FOUNDATIO PATIENT 40 MIN OFFICE 33430 FAMILY YAJAIRA OUTPATIEN 9 9 CARE R NII T VISIT ASSOCIATE 15 S MINUTES OFFICE 43606 FAMILY ANASTASIA OUTPATIEN 9 9 CARE ALEKSANDR T T VISIT ASSOCIATE 15 S MINUTES OFFICE 58949 FAMILY YAJAIRA OUTPATIEN 9 9 CARE R NII T VISIT ASSOCIATE 15 S MINUTES HOSPITAL SHIRA - 9 9 [facility] OUTPATIEN INC T OFFICE 52212 FAMILY MULBERRY, OUTPATIEN 9 9 CARE ALEKSANDR T T VISIT ASSOCIATE 15 S MINUTES OFFICE 77776 FAMILY ANASTASIA, OUTPATIEN 9 9 CARE ALEKSANDR T T VISIT ASSOCIATE 15 S MINUTES HOSPITAL UNIVERSIT - 9 9 Y OUTPATI HOSPITAL T OFFICE 25357 KMS ABDULAZIZ OUTPATIEN 9 9 NURSE JOSÉ Stephens T VISIT PRACTITIO 10 NER GROUP MINUTES HOSPITAL SHIRA - 9 9 [facility] OUTPATIEN INC T OFFICE 24502 FAMILY YAJAIRA, OUTPATIEN 9 9 CARE R NII T VISIT ASSOCIATE 15 S MINUTES OFFICE 03495 FAMILY YAJAIRA, OUTPATIEN 9 9 CARE R NII T VISIT ASSOCIATE 15 S MINUTES OFFICE 26069 FAMILY YAJAIRA, OUTPATIEN 9 9 CARE R NII T VISIT ASSOCIATE 15 S MINUTES HOSPITAL [facility] - 9 9 [facility] 95345 FAMILY YAJAIRA, OUTPATIEN 9 9 CARE R NII T VISIT ASSOCIATE 15 S MINUTES OFFICE 72704 MATEO ANNY, OUTPATIEN 9 9 MEDICAL EDWARD T VISIT SERV 15 FOUNDATIO MINUTES OFFICE 64905 FAMILY YAJAIRA, OUTPATIEN 9 9 CARE R NII T VISIT ASSOCIATE 15 S MINUTES OFFICE 86383 FAMILY YAJAIRA, OUTPATIEN 8 8 CARE R NII T VISIT ASSOCIATE 10 S MINUTES OFFICE 92028 MATEO MICHOACANO OUTPATIEN 8 8 MEDICAL ELENA J T VISIT SERV 10 FOUNDATIO MINUTES OFFICE 32688 FAMILY YAJAIRA, OUTPATIEN 8 8 CARE R NII T VISIT ASSOCIATE 15 S MINUTES OFFICE 57334 MATEO ANNY OUTPATIEN 8 8 MEDICAL EDWARD T VISIT SERV 15 FOUNDATIO MINUTES OFFICE 59135 MATEO MICHOACANO BRIFREYA 8 8 MEDICAL ELENA Gordon T VISIT SERV 15 FOUNDATIO MINUTES [facility] UN[facility]ERSIT - 8 8 [facility] - [facility] 8 Y INPATIENT [facility] SHIRA - 8 8 MEM [facility] OFFICE 61196 YAJAIRA BRIFREYA 8 8 CARE R NII T VISIT ASSOCIATE 15 S MINUTES OFFICE 33581 FAMILY OCONNOR ANNAPATRICA 8 8 CARE ALEKSANDR T T VISIT ASSOCIATE 15 S MINUTES OFFICE 91028 [facility] CARE ALEKSANDR T T VISIT ASSOCIATE 15 S MINUTES OFFICE 26179 Heidi GONZALEZ [facility] 8 8 CARE G T VISIT ASSOCIATE 15 S MINUTES OFFICE 83862 YAJAIRA ANNAPATRICA 8 8 CARE R NII T VISIT ASSOCIATE 15 S MINUTES OFFICE 84597 MATEO ANG MCCORMICK 8 8 MEDICAL EDWARD T VISIT SERV 15 FOUNDATIO MINUTES
--- OUTSIDE RECORDS SUMMARY | 2017-04-05 10:49 | External Medical Summary Rpt ---
Demographics Preferred Language Faroese Marital Status Unknown Baptism Affiliation Unknown Race Unknown Ethnic Group Unknown Author Author , [facility] Address Unknown Phone Immunization Unable to retrieve immunization data due to connection failure with Immunization Registry. Please try again later.
--- OUTSIDE RECORDS SUMMARY | 2017-04-05 10:49 | External Medical Summary Rpt ---
Author Author [facility] Lov[facility], [employer] Organization [employer] Address Unknown Phone Unavailable Results CBC W Auto Differential panel in Blood Observa Value Referen Units Interpr Notes Date tion ce etation Range Basophils 0 - 0.2 K/MM3 Normal No Apr 05 inform2016 [#/volume on in 10:00 AM ] in source Blood by data Automated count Basophils 0.1 - 2.0 % Normal No Apr 05 inform2016 leukocyte on in 10:00 AM s in source Blood by data Automated count Eosinophi 0.0 - 0.4 K/mm3 Normal No Apr 05 ls informati 2016 [#/volume on in 10:00 AM ] in source Blood by data Automated count Eosinophi 0.1 - % Normal No Apr 05 ls/100 12.0 inform2016 leukocyte on in 10:00 AM s in source Blood by data Automated count Granulocy 1.3 - 8.0 K/mm3 Normal No Apr 05 megan informati 2016 [#/volume on in 10:00 AM ] in source Blood by data Automated count Granulocy 37.0 - % Normal No Apr 05 megan/100 80.0 informati 2016 leukocyte on in 10:00 AM s in source Blood by data Automated count Hematocri 42.0 - % Normal No Apr 05 t [Volume 52.0 informati 2016 on in 10:00 AM Fraction] source of Blood data Hemoglobi 14.1 - g/dL Normal No Apr 05 n 18.0 informati 2016 [Mass/vol on in 10:00 AM ume] in source Blood data Lymphocyt 0.7 - 4.5 K/mm3 Normal No Apr 05 es informati 2016 [#/volume on in 10:00 AM ] in source Unspecifi data ed specimen by Automated count Lymphocyt 10 - 50 % Normal No Apr 05 es informati 2016 [#/volume on in 10:00 AM ] in source Unspecifi data ed specimen by Automated count Erythrocy 27 - 31.2 pg Normal No Apr 05 te mean ati 2016 corpuscul on in 10:00 AM ar source hemoglobi data n [Entitic mass] Erythrocy 31.8 - g/dl Normal No Apr 05 te mean 35.4 inform2016 corpuscul on in 10:00 AM ar source hemoglobi data n concentra tion [Mass/vol ume] by Automated count Erythrocy 82.2 - fl Normal No Apr 05 te mean 97.8 informati 2016 corpuscul on in 10:00 AM ar volume source [Entitic data volume] by Automated count Monocytes 0.1 - 1.0 K/mm3 Normal No Apr 05 informati 2016 [#/volume on in 10:00 AM ] in source Blood by data Automated count Monocytes 1.7 - 9.3 % Normal No Apr 05 /100 informati 2016 leukocyte on in 10:00 AM s in source Blood by data Automated count Platelet 7.4 - fl Low No Apr 05 mean 10.4 informati 2016 volume on in 10:00 AM [Entitic source volume] data in Blood by Automated count Platelets 142 - 424 K/mm3 Normal No Apr 05 informati 2016 [#/volume on in 10:00 AM ] in source Blood data Erythrocy 4.6 - 6.2 M/mm3 Normal No Apr 05 megan informati 2016 [#/volume on in 10:00 AM ] in source Amniotic data fluid Erythrocy 11.5 - % Normal No Apr 05 te 17.5 informati 2016 distribut on in 10:00 AM ion width source [Entitic data volume] by Automated count Leukocyte 4.8 - K/MM3 Normal No Apr 05 s 10.8 informati 2016 [#/volume on in 10:00 AM ] in source Blood data CHLAMYDIA AND GONORRHEA TESTING Observa Value Referen Units Interpr Notes Date tion ce etation Range COLLECT J. No No No No Jul 03 OR JEWEL informa informa informa informa 2011 RN tion in tion in tion in tion in 2:45 PM source source source source data data data data ETHNICI WHITE, No No No No Jul 03 TY NON-HIS informa informa informa informa 2012 PANIC tion in tion in tion in tion in 2:45 PM source source source source data data data data KIT DECEMBER No No No No Jul 03 EXPIRAT 30, informa informa informa informa 2012 ION 2013 tion in tion in tion in tion in 2:45 PM DATE source source source source data data data data SYMPTOM NO No No No No Jul 03 S informa informa informa informa 2012 tion in tion in tion in tion in 2:45 PM source source source source data data data data REASON VOLUNTE No No No No Jul 03 FOR ER/MEDI informa informa informa informa 2012 REQUEST EDIE tion in tion in tion in tion in 2:45 PM PROBLEM source source source source data data data data SPECIME MALE No No No No Jul 03 N URETHRA informa informa informa informa 2012 SOURCE L tion in tion in tion in tion in 2:45 PM source source source source data data data data PREGNAN NO No No No No Jul 03 T informa informa informa informa 2012 tion in tion in tion in tion in 2:45 PM source source source source data data data data CHART NA No No No No Jul 03 NUMBER informa informa informa informa 2012 tion in tion in tion in tion in 2:45 PM source source source source data data data data Chlamyd NEGATIV No No No NEGATIV Jul 03 ia E informa informa informa E 2012 trachom tion in tion in tion in RESULT= 2:45 PM atis source source source WITHIN rRNA data data data NORMAL [Presen ce] in LIMITSP Unspeci OSITIVE fied specime RESULT= n by Probe & ABNORMA target LEQUIVO EDIE amplifi RESULT= cation method INDETER MINATEU NSATISF ACTORY RESULT= INVALID Neisser NEGATIV No No No NEGATIV Jul 03 ia E informa informa informa E 2012 gonorrh tion in tion in tion in RESULT= 2:45 PM oeae source source source WITHIN rRNA data data data NORMAL [Presen ce] in LIMITSP Unspeci OSITIVE fied specime RESULT= n by Probe & ABNORMA target LEQUIVO EDIE amplifi RESULT= cation method INDETER MINATEU NSATISF ACTORY RESULT= INVALID THE APTIMA COMBO 2 ASSAY IS NOT INTENDE D FOR THE EVALUAT ION OF SUSPECT EDSEXUA L ABUSE OR FOR OTHER MEDICO- LEGAL INDICAT IONS. FOR THOSE PATIENT S FORWHOM A FALSE POSITIV E RESULT MAY HAVE ADVERSE PSYCHO- SOCIAL IMPACT, THE CDCRECO MMENDS RETESTI NG.\.br \This report contain s patient informa tion that must be protect ed [place] with the Health Ins[employer] [place] Portabi lity and Account ability Act. Treponema pallidum IgG Ab [Presence] in Serum by Immunoassay Observa Value Referen Units Interpr Notes Date tion ce etation Range COLLECT J. No No No No Jul 03 OR JEWEL informa informa informa informa 2012 RN tion in tion in tion in tion in 2:45 PM source source source source data data data data ETHNICI W No No No No Jul 03 TY informa informa informa informa 2012 tion in tion in tion in tion in 2:45 PM source source source source data data data data PURPOSE DIAGNOS No No No No Jul 03 OF TIC informa informa informa informa 2012 EXAM tion in tion in tion in tion in 2:45 PM source source source source data data data data SPECIME BLOOD No No No No Jul 03 N informa informa informa informa 2012 SOURCE tion in tion in tion in tion in 2:45 PM source source source source data data data data CHART NA No No No No Jul 03 NUMBER informa informa informa informa 2012 tion in tion in tion in tion in 2:45 PM source source source source data data data data Trepone NON-JULIANNE No No No METHOD Jul [address] informa informa informa OF 2012 pallidu tion in tion in tion in ANALYSI 2:45 PM m IgG source source source S: Ab data data data EIANORM [Presen AL ce] in RANGE: Serum NON-JULIANNE by CTIVE\. Immunoa br\This ssay report contain s patient informa tion that must be protect ed [place] with the Health Ins[employer] ce Portabi lity and Account ability Act. Treponema pallidum IgG Ab [Presence] in Serum by Immunoassay Observa Value Referen Units Interpr Notes Date tion ce etation Range COLLECT J. No No No No Jul 03 OR JEWEL informa informa informa informa 2012 RN tion in tion in tion in tion in 2:45 PM source source source source data data data data ETHNICI W No No No No Jul 03 TY informa informa informa informa 2012 tion in tion in tion in tion in 2:45 PM source source source source data data data data PURPOSE DIAGNOS No No No No Jul 03 OF TIC informa informa informa informa 2012 EXAM tion in tion in tion in tion in 2:45 PM source source source source data data data data SPECIME BLOOD No No No No Jul 03 N informa informa informa informa 2012 SOURCE tion in tion in tion in tion in 2:45 PM source source source source data data data data CHART NA No No No No Jul 03 NUMBER informa informa informa informa 2012 tion in tion in tion in tion in 2:45 PM source source source source data data data data Trepone Pending No No No \.br\Jul 03 ma informa informa informa is 2012 pallidu tion in tion in tion in report 2:45 PM m IgG source source source contain Ab data data data s [Presen patient ce] in Serum informa by gloria Immunoa that ssay must be protect ed [place] with the Health Ins[employer] ce Portabi lity and Account ability Act. CHLAMYDIA AND GONORRHEA TESTING Observa Value Referen Units Interpr Notes Date tion ce etation Range COLLECT J. No No No No Jul 03 OR HOLLOWAY informa informa informa informa 2012 RN tion in tion in tion in tion in 2:45 PM source source source source data data data data ETHNICI WHITE, No No No No Jul 03 TY NON-HIS informa informa informa informa 2012 PANIC tion in tion in tion in tion in 2:45 PM source source source source data data data data KIT ASUNCION No No No No Jul 03 EXPIRAT 30, informa informa informa informa 2012 ION 2013 tion in tion in tion in tion in 2:45 PM DATE source source source source data data data data SYMPTOM NO No No No No Jul 03 S informa informa informa informa 2012 tion in tion in tion in tion in 2:45 PM source source source source data data data data REASON VOLUNTE No No No No Jul 03 FOR ER/MEDI informa informa informa informa 2012 REQUEST EDIE tion in tion in tion in tion in 2:45 PM PROBLEM source source source source data data data data SPECIME MALE No No No No Jul 03 N URETHRA informa informa informa informa 2012 SOURCE L tion in tion in tion in tion in 2:45 PM source source source source data data data data PREGNAN NO No No No No Jul 03 T informa informa informa informa 2012 tion in tion in tion in tion in 2:45 PM source source source source data data data data CHART NA No No No No Jul 03 NUMBER informa informa informa informa 2012 tion in tion in tion in tion in 2:45 PM source source source source data data data data Chlamyd Pending No No No No Jul 03 ia informa informa informa informa 2012 trachom tion in tion in tion in tion in 2:45 PM atis source source source source rRNA data data data data [Presen ce] in Unspeci fied specime n by Probe & target amplifi cation method Neisser Pending No No No \.br\Th Jul 03 ia informa informa informa is 2012 gonorrh tion in tion in tion in report 2:45 PM oeae source source source contain rRNA data data data s [Presen patient ce] in Unspeci informa fied tion specime that n by must be Probe & target protect ed in amplifi accorda cation nce method with the Health Ins[employer] ce Portabi lity and Account ability Act.
--- OUTSIDE RECORDS SUMMARY | 2017-04-05 10:49 | External Medical Summary Rpt ---
Demographics Preferred Language Georgian Marital Status Unknown Rastafari Affiliation Unknown Race Unknown Ethnic Group Unknown Author Author , [facility] Address Unknown Phone Immunization Unable to retrieve immunization data due to connection failure with Immunization Registry. Please try again later.
--- OUTSIDE RECORDS SUMMARY | 2017-04-05 10:49 | External Medical Summary Rpt ---
[...] tion that must be protect ed [place] the [employer] Portabi lity [...] tion that must be protect [place] the [employer] Portabi lity [...]
--- NOTE | 2017-04-05 11:09 | RADIOLOGY REPORT PS360 ---
CHEST-PORTABLE HISTORY: Chest pain pain ORDERING PHYSICIAN: Salas Valdes MD PATIENT AGE: 37 years COMPARISON: 09/12/2013 FINDINGS: The cardiomediastinal silhouette and pulmonary vascularity are within normal limits. The lungs are clear without infiltrates, suspicious nodules, or pleural effusions. No acute bony abnormalities. IMPRESSION: Negative chest, no acute finding
--- NOTE | 2017-04-05 11:17 | Emergency Room Report ---
History of Present Illness Time Seen by 1003 Presenting Problem in Triage Pt arrived:Walked Presenting Problem:PT C/O CP THATS BEEN PRESENT SINCE HE WOKE UP THIS MORNING. 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 N Clinical Suspician of Infection? N Mental Status: 1 - Regular (Normal Baseline) Sepsis Risk:Low Sepsis Risk Have you (or family members/close friends) recently traveled outside the [place]? N If Yes, where/when: Have you had exposure to infectious disease within the past month? N TB? Other? Specify: Source patient, RN notes reviewed, family, RN/MD Exam Limitations no limitations Comment This is a 37-year-old male arriving to the emergency room by POV complaining with RIGHT sided chest pain, pleuritic in nature, since 4:00 this morning. Patient has a history of hemomylia A (factor VIII deficiency). In September 2016 the patient had a lung hemorrhage (? lung contusion), and he was treated at for this condition. Patient is additional other nonspecific complaints such as perioral numbness, tingling in his fingers, dizziness, etc. ALLERGIES Coded Allergies: clarithromycin (From One DiaryAXIN) (Intermediate, I-RASH 11/19/15) Penicillins (11/18/15) aspirin (11/18/15) Home Medications Reported Medications [FACTOR 8 ] 2,500 UNITS SQ PRN Albuterol Sulfate (Ventolin Hfa) 0.09 MG IH PRN PRN BREATHING #18 Escitalopram Oxalate 5 MG PO DAILY #30 History Medical History General CAD? No Angina: No MN: No Hypertension? No Hyperlipidemia? No CHF? No DVT? No PE? No COPD? No Asthma? Yes Anemia? No GERD? No Gastric ulcers? No GI Bleed? No Hernia? No Thyroid Problems? No Hypothyroidism? No CVA? No Seizures? No Diabetes? No Renal Insuffiency? No End Stage Renal Disease? No UTI? No Stones? Yes BPH? No GB Disease: No Nephritic Syndrome? No Asplenia? No Hepatitis? No Sickle Cell Disease? No Arthritis? Yes Migraines? No Cataracts? No Glaucoma? No MRSA? No HIV? No TB? No Anxiety? No Depression? Yes Cancer? No More? Yes Additional hx: HEMOPHILIA-FACTOR 8 Immunization Hx DT/Tetanus Unknown Surgical Hx Previous Surgery?Y BOTH ANKLES BOTH ELBOWS Family History Family Hx Diabetes Yes CAD No Hypertension Yes Hyperlipidemia No Cancer No TB No Social History Smoking Hx Smoker: Never Smoker Tobacco: No Alcohol Alcohol: Yes Review of Systems All Other Systems Reviewed and Negative Cardiovascular chest pain Psychiatric/Neurological numbness (face), paresthesia (face) Physical Exam Vital Signs Vital Signs Date Time Temp Pulse Resp B/P Pulse O2 O2 Flow FiO2 Ox Delivery Rate 04/05 1320 76 18 137/84 98 04/05 1301 64 18 134/75 99 04/05 1225 64 18 133/89 99 04/05 1114 64 18 86/47 99 04/05 1037 64 18 122/69 99 04/05 1015 98 04/05 1001 98.8 64 18 137/85 99 General Appearance normal appearance, WD/WN, no apparent distress Respiratory Status Yes: trachea midline, chest symmetrical, tender on palpation (right side chest wall). No: respiratory distress. Lung Sounds bilateral: normal breath sounds, lungs clear. 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 No Results/Orders Laboratory Tests 04/05/17 1000: B-Natriuretic Peptide 31 04/05/17 1000: Sodium 142, Potassium 3.5, Chloride 107, Carbon Dioxide 29, BUN 8, Creatinine 0.9, Estimated Creat Clear 143, Estimated GFR (MDRD) 95, Glucose 99, Calcium 8.4 L, Total Bilirubin 1.1 H, AST 15, ALT 21, Alkaline Phosphatase 73, Creatine Kinase 45, CK and CKMB Interp < 0.5, Troponin I < 0.02, Total Protein 7.4, Albumin 3.9, Globulin 3.5 H, Albumin/Globulin Ratio 1.1, PT 10.8, INR 1.00, APTT 70.4 *H, WBC 6.0, RBC 5.19, Hgb 15.9, Hct 45.4, MCV 87.4, RDW 13.1, Plt Count 287, MPV 6.8 L, Gran % 67.8, Gran # 4.1, Lymphocytes % 25.5, Monocytes % 4.8, Eosinophils % 1.4, Basophils % 0.5, Lymphocytes # 1.5, Monocytes # 0.3, Eosinophils # 0.1, Basophils # 0.0, PUBS MCHC 35.0, MCH 30.6 Current Medication Orders Sig/Cary Start time Last Medication Dose Route Stop Time Status Admin Iopamidol 60 ML ONCE ONE 04/05 1230 DC 04/05 IV 04/05 1231 1226 Sodium Chloride 10 ML PRN PRN 04/05 1230 DCD 04/05 IV 04/05 1356 1226 Sodium Chloride 20 ML ONCE ONE 04/05 1230 DC 04/05 IV 04/05 1231 1226 Sodium Chloride 20 ML ONCE ONE 04/05 1230 DC 04/05 IV 04/05 1231 1226 Sodium Chloride 10 ML PRN PRN 04/05 1015 DCD IV 04/06 1003 Orders Procedure Date/time Status DIET-NOTHING BY MOUTH 04/[address] CHEST W/PE PROTOCOL REQ 04/05 1114 Complete PARTIAL THROMBOPLASTIN TIME 04/05 1004 Complete PROTHROMBIN TIME 04/05 1004 Complete BRAIN NATRIURETIC PEPTIDE 04/05 1004 Complete ELECTROCARDIOGRAM REQUEST 04/05 1003 Active IV SALINE LOCK 04/05 1003 Active OXYGEN PER NURSE 04/05 1003 Active FURNITURE MAKER 04/05 1003 Active TROPONIN I 04/05 1003 Complete CPK 04/05 1003 Complete COMPLETE METABOLIC PANEL 04/05 1003 Complete CKMB 04/05 1003 Complete CBC WITH AUTO DIFF 04/05 1003 Complete 12 LEAD EKG-NORIS (INITIAL) 04/05 1000 Active 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 of ischemic chgs, no ectopy, normal QRS, normal MT, normal EKG, no EKG for comparison, non-spec. ST/Twave chgs, ST elevation, ST depression, LBBB, RBBB, ectopy, abnormal Q waves XRAY/CT/US XRAY/CT/US 1 XRAY chest XR interpretation by reviewed by me, discussed w/radiologist Xray Results no infiltrates, normal heart size, normal lung inflation jakob XRAY/CT/US [address] interpretation by discussed w/radiologist CT Results abnormal Comment No pulmonary embolus, no lung contusion, no lung hemorrhage. Departure Departure Time of Disposition 1359 Disposition DC Home or Self Care(routine) Clinical Impression Primary Impression: Chest pain Qualifiers: Chest pain type: unspecified Qualified Code: R07.9 - Chest pain, unspecified Condition STABLE Referrals Heidi Abdul MD (Family) Patient Instructions DI for Chest Pain Additional Instructions Please take Tylenol every 4-6 hours as needed for pain, follow-up with Dr. Abdul if not better in the morning. Discharge Counseling Counseled pt/family regarding diagnosis, test results, medications/RX, home care, follow up needs Comment Please take Tylenol every 4-6 hours as needed for pain, follow-up with Dr. Abdul if not better in the morning. ED Critical Care Critical Care No at 1936
--- NOTE | 2017-04-05 11:17 | Emergency Room Report ---
History of Present Illness Time Seen by [id number] Presenting Problem in Triage Pt arrived:Walked Presenting Problem:PT C/O CP THATS BEEN PRESENT SINCE HE WOKE UP THIS MORNING. 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 N Clinical Suspician of Infection? N Mental Status: 1 - Regular (Normal Baseline) Sepsis Risk:Low Sepsis Risk Have you (or family members/close friends) recently traveled outside the [place]? N If Yes, where/when: Have you had exposure to infectious disease within the past month? N TB? Other? Specify: Source patient, RN notes reviewed, family, RN/MD Exam Limitations no limitations Comment This is a 37-year-old male arriving to the emergency room by POV complaining with RIGHT sided chest pain, pleuritic in nature, since 4:00 this morning. Patient has a history of hemomylia A (factor VIII deficiency). In September 2016 the patient had a lung hemorrhage (? lung contusion), and he was treated at for this condition. Patient is additional other nonspecific complaints such as perioral numbness, tingling in his fingers, dizziness, etc. ALLERGIES Coded Allergies: clarithromycin (From [employer]) (Intermediate, I-RASH 11/19/15) Penicillins (11/18/15) aspirin (11/18/15) Home Medications Reported Medications [FACTOR 8 ] 2,500 UNITS SQ PRN Albuterol Sulfate (Ventolin Hfa) 0.09 MG IH PRN PRN BREATHING #18 Escitalopram Oxalate 5 MG PO DAILY #30 History Medical History General CAD? No Angina: No [place]: No Hypertension? No Hyperlipidemia? No CHF? No DVT? No PE? No COPD? No Asthma? Yes Anemia? No GERD? No Gastric ulcers? No GI Bleed? No Hernia? No Thyroid Problems? No Hypothyroidism? No CVA? No Seizures? No Diabetes? No Renal Insuffiency? No End Stage Renal Disease? No UTI? No Stones? Yes BPH? No GB Disease: No Nephritic Syndrome? No Asplenia? No Hepatitis? No Sickle Cell Disease? No Arthritis? Yes Migraines? No Cataracts? No Glaucoma? No MRSA? No HIV? No TB? No Anxiety? No Depression? Yes Cancer? No More? Yes Additional hx: HEMOPHILIA-FACTOR 8 Immunization Hx DT/Tetanus Unknown Surgical Hx Previous Surgery?Y BOTH ANKLES BOTH ELBOWS Family History Family Hx Diabetes Yes CAD No Hypertension Yes Hyperlipidemia No Cancer No TB No Social History Smoking Hx Smoker: Never Smoker Tobacco: No Alcohol Alcohol: Yes Review of Systems All Other Systems Reviewed and Negative Cardiovascular chest pain Psychiatric/Neurological numbness (face), paresthesia (face) Physical Exam Vital Signs Vital Signs Date Time Temp Pulse Resp B/P Pulse O2 O2 Flow FiO2 Ox Delivery Rate 04/05 1320 76 18 137/84 98 04/05 1301 64 18 134/75 99 04/05 1225 64 18 133/89 99 04/05 1114 64 18 86/47 99 04/05 1037 64 18 122/69 99 04/05 1015 98 04/05 1001 98.8 64 18 137/85 99 General Appearance normal appearance, WD/WN, no apparent distress Respiratory Status Yes: trachea midline, chest symmetrical, tender on palpation (right side chest wall). No: respiratory distress. Lung Sounds bilateral: normal breath sounds, lungs clear. Cardiovascular normal exam, regular rate/rhythm, no peripheral edema, no gallop, no JVD, no murmur, no rub, normal peripheral pulses Gastrointestinal normal bowel sounds, normal exam, non tender, soft, no organomegaly Extremities non-tender, normal range of motion, normal inspection Neurologic alert, distribution lead II-XII nml as tested, normal exam, oriented x 3 Mental status normal mood/affect Skin intact, normal color, warm/dry Medical Decision Making LABS/Meds/Orders Pt receiving controlled substance in ED? No Results/Orders Laboratory Tests 04/05/17 1000: B-Natriuretic Peptide 31 04/05/17 1000: Sodium 142, Potassium 3.5, Chloride 107, Carbon Dioxide 29, BUN 8, Creatinine 0.9, Estimated Creat Clear 143, Estimated GFR (MDRD) 95, Glucose 99, Calcium 8.4 L, Total Bilirubin 1.1 H, AST 15, ALT 21, Alkaline Phosphatase 73, Creatine Kinase 45, CK and CKMB Interp < 0.5, Troponin I < 0.02, Total Protein 7.4, Albumin 3.9, Globulin 3.5 H, Albumin/Globulin Ratio 1.1, PT 10.8, INR 1.00, APTT 70.4 *H, WBC 6.0, RBC 5.19, Hgb 15.9, Hct 45.4, MCV 87.4, RDW 13.1, Plt Count 287, MPV 6.8 L, Gran % 67.8, Gran # 4.1, Lymphocytes % 25.5, Monocytes % 4.8, Eosinophils % 1.4, Basophils % 0.5, Lymphocytes # 1.5, Monocytes # 0.3, Eosinophils # 0.1, Basophils # 0.0, PUBS MCHC 35.0, MCH 30.6 Current Medication Orders Sig/Cary Start time Last Medication Dose Route Stop Time Status Admin Iopamidol 60 ML ONCE ONE 04/05 1230 DC 04/05 IV 04/05 1231 1226 Sodium Chloride 10 ML PRN PRN 04/05 1230 DCD 04/05 IV 04/05 1356 1226 Sodium Chloride 20 ML ONCE ONE 04/05 1230 DC 04/05 IV 04/05 1231 1226 Sodium Chloride 20 ML ONCE ONE 04/05 1230 DC 04/05 IV 04/05 1231 1226 Sodium Chloride 10 ML PRN PRN 04/05 1015 DCD IV 04/06 1003 Orders Procedure Date/time Status DIET-NOTHING BY MOUTH 04/[address] CHEST W/PE PROTOCOL REQ 04/05 1114 Complete PARTIAL THROMBOPLASTIN TIME 04/05 1004 Complete PROTHROMBIN TIME 04/05 1004 Complete BRAIN NATRIURETIC PEPTIDE 04/05 1004 Complete ELECTROCARDIOGRAM REQUEST 04/05 1003 Active IV SALINE LOCK 04/05 1003 Active OXYGEN PER NURSE 04/05 1003 Active COMPLEX HUMAN RESOURCES MANAGER 04/05 1003 Active TROPONIN I 04/05 1003 Complete CPK 04/05 1003 Complete COMPLETE METABOLIC PANEL 04/05 1003 Complete CKMB 04/05 1003 Complete CBC WITH AUTO DIFF 04/05 1003 Complete 12 LEAD EKG-NORIS (INITIAL) 04/05 1000 Active CM/EKG CM/supervisor 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 of ischemic chgs, no ectopy, normal QRS, normal VA, normal EKG, no EKG for comparison, non-spec. ST/Twave chgs, ST elevation, ST depression, LBBB, RBBB, ectopy, abnormal Q waves XRAY/CT/US XRAY/CT/US 1 XRAY chest XR interpretation by reviewed by me, discussed w/radiologist Xray Results no infiltrates, normal heart size, normal lung inflation jakob XRAY/CT/US [address] interpretation by discussed w/radiologist CT Results abnormal Comment No pulmonary embolus, no lung contusion, no lung hemorrhage. Departure Departure Time of Disposition 1359 Disposition DC Home or Self Care(routine) Clinical Impression Primary Impression: Chest pain Qualifiers: Chest pain type: unspecified Qualified Code: R07.9 - Chest pain, unspecified Condition STABLE Referrals Heidi Abdul MD (Family) Patient Instructions DI for Chest Pain Additional Instructions Please take Tylenol every 4-6 hours as needed for pain, follow-up with Dr. Abdul if not better in the morning. Discharge Counseling Counseled pt/family regarding diagnosis, test results, medications/RX, home care, follow up needs Comment Please take Tylenol every 4-6 hours as needed for pain, follow-up with Dr. Abdul if not better in the morning. ED Critical Care Critical Care No at 1936
--- NOTE | 2017-04-05 12:58 | RADIOLOGY REPORT PS360 ---
CTA-CHEST HISTORY: CHEST PAIN,DYSPNEA, HX HEMOPHYLIA ORDERING PHYSICIAN: Salas Valdes MD PATIENT AGE: 37 years TECHNIQUE: Helical acquisition obtained following the bolus administration of 60 mL of Isovue 370 followed by a saline bolus. Axial, sagittal, and coronal reformatted images are generated and reviewed. COMPARISON: None FINDINGS: There is no evidence of pulmonary embolus. No evidence of aortic aneurysm. Air is present within the left brachiocephalic vein possibly related to venous catheterization. No mediastinal or hilar mass. No evidence of pericardial effusion. Normal heart size. There is a calcified granuloma in the right lower lobe. The lungs are clear. No lobar consolidation or collapse. No effusions. Upper abdominal images are unremarkable. No acute bony anomalies. IMPRESSION: Negative CTA of the chest. No evidence of pulmonary embolus
[2017-04-05 13:20] VITALS: BP 137/84
== END 2017-04-05 13:20 | disposition home or self-care (01) ==
LOC: ER 10:00
PROVIDERS: Emergency Medicine
DX: R07.9 Chest pain, unspecified (principal)
CPT/HCPCS: Q9967

== ENCOUNTER 2017-06-17 09:57 | Inpatient (IN) | payer MEDICAID ==
[~2017-06-17] VITALS: Ht 193 cm; Wt 88.2 kg
[~2017-06-17 09:57] MED LIST changes: -FACTOR 8 SQ; +[UNRECOGNIZED DRUG - OTHER] IV
[2017-06-17 09:58] VITALS: BP 119/76
[2017-06-17] MEDS ORDERED: CEFDINIR300 M1 PO (10:01)
--- NOTE | 2017-06-17 10:28 | Emergency Room Report ---
History of Present Illness Time Seen by [id number] Presenting Problem in Triage Pt arrived:Walked Presenting Problem:SHARP CP IN THE MEDIASTINAL AREA WITHOUT RADIATION SINCE LAST NIGHT. 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 N Clinical Suspician of Infection? N Mental Status: 1 - Regular (Normal Baseline) Sepsis Risk:Low Sepsis Risk Have you (or family members/close friends) recently traveled outside the [place]? N If Yes, where/when: Have you had exposure to infectious disease within the past month? TB? Other? Specify: 37 years old female alert patient who gives himself injections every week. He had multiple history of multiple intra-articular hemorrhages. He presened with a constant 5/10 lower sternal sharp pain in since 10 PM last night that is worse with exertion. There is no orthopnea or exertional dyspnea palpitations nausea vomiting or diarrhea. There is no numbness or tingling weakness no hematemesis or coffee- ground emesis or melanotic stool. He denies abdominal pain or joint pains. Source patient, RN notes reviewed, family Exam Limitations no limitations ALLERGIES Coded Allergies: clarithromycin (From [employer]XIN) (Intermediate, I-RASH 06/17/17) Penicillins (06/17/17) aspirin (06/17/17) Home Medications Reported Medications [FACTOR 8 ] 2,500 UNITS SQ PRN Albuterol Sulfate (Ventolin Hfa) 0.09 MG IH PRN PRN BREATHING #18 Escitalopram Oxalate 5 MG PO DAILY #30 Cefdinir 300 MG PO BID #20 History Medical History General CAD? No Angina: No [place]: No Hypertension? No Hyperlipidemia? No CHF? No DVT? No PE? No COPD? No Asthma? Yes Anemia? No GERD? No Gastric ulcers? No GI Bleed? No Hernia? No Thyroid Problems? No Hypothyroidism? No CVA? No Seizures? No Diabetes? No Renal Insuffiency? No End Stage Renal Disease? No UTI? No Stones? Yes BPH? No GB Disease: No Nephritic Syndrome? No Asplenia? No Hepatitis? No Sickle Cell Disease? No Arthritis? Yes Migraines? No Cataracts? No Glaucoma? No MRSA? No HIV? No TB? No Anxiety? No Depression? Yes Cancer? No More? Yes Additional hx: HEMOPHILIA-FACTOR 8 Immunization Hx Ped.Immunizations UTD Yes DT/Tetanus Unknown Surgical Hx Previous Surgery?Y BOTH ANKLES BOTH ELBOWS Family History Family Hx Diabetes Yes CAD No Hypertension Yes Hyperlipidemia No Cancer No TB No Social History Smoking Hx Smoker: Never Smoker Tobacco: No Type N/A Are you/the child exposed to second-hand smoke: No Alcohol Alcohol: Yes Review of Systems All Other Systems Reviewed and Negative Constitutional no symptoms reported Eyes no symptoms reported ENT no symptoms reported. Respiratory no symptoms reported Cardiovascular see HPI, chest pain (at xiphisternal junction) Gastrointestinal no symptoms reported Genitourinary no symptoms reported. Musculoskeletal no symptoms reported Skin no symptoms reported Psychiatric/Neurological no symptoms reported Physical Exam Vital Signs Vital Signs Date Time Temp Pulse Resp B/P Pulse O2 O2 Flow FiO2 Ox Delivery Rate 06/17 1138 18 06/17 1126 57 18 116/78 99 06/17 1046 57 16 119/77 97 06/17 1018 18 06/17 0958 98.1 57 18 119/76 98 Alert and oriented in no distress (Shannon HENDERSON,[facility]) - WBC >12,000 or <4,000 or 10% bands? 2 or more SIRS Criteria Met? B/P:119/76 MAP:90 Creatinine >2.0? UA output<0.5ml/kg/hr for 2 hrs? Platelet count >100,000? Lactate >2.0mmol/1? INR >1.2 or PTT > than 60 sec? Evidence of Organ Dysfunction? Provider documented clinical suspician of infection? N Sepsis Criteria Count: 0 Sepsis Risk: Low Sepsis Risk General Appearance normal appearance, WD/WN Eye Exam - bilateral eye normal exam, bilateral eye PERRL, bilateral eye EOMI Ear, Nose, Throat hearing grossly normal, normal ENT inspection Neck normal inspection, non-tender, supple, full range of motion Respiratory Status Yes: trachea midline, chest symmetrical, tender on palpation. No: respiratory distress. Lung Sounds bilateral: normal breath sounds, lungs clear. Cardiovascular normal exam, regular rate/rhythm, no peripheral edema, no gallop Peripheral Pulses Pulses normal Yes Peripheral Pulses 2+ femoral (R), 2+ femoral (L) Gastrointestinal normal bowel sounds, normal exam, non tender, soft, no organomegaly Back normal inspection, no CVA tenderness, no vertebral tenderness Extremities non-tender, normal range of motion, normal inspection Male Genitalia normal genitalia, normal prostate, no hernia, circumcised Nurse present during exam? 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 No Medical Decision Making LABS/Meds/Orders Pt receiving controlled substance in ED? No Results/Orders Laboratory Tests 06/17/17 1010: Lipase 1682 H 06/17/17 1010: Amylase 137 H, D-Dimer < 100 06/17/17 1010: Sodium 141, Potassium 4.0, Chloride 106, Carbon Dioxide 29, BUN 8, Creatinine 0.9, Estimated Creat Clear 143, Estimated GFR (MDRD) 95, Glucose 89, Calcium 8.4 L, Total Bilirubin 0.7, AST 10 L, ALT 20, Alkaline Phosphatase 81, Creatine Kinase 40, CK-MB (CK-2) Rel Index 1.3, CK and CKMB Interp < 0.5, Troponin I < 0.02, Total Protein 7.3, Albumin 3.9, Globulin 3.4 H, Albumin/Globulin Ratio 1.1, PT 10.6, INR 0.98, APTT 73.0 *H, WBC 6.1, RBC 5.25, Hgb 15.9, Hct 47.4, MCV 90.3, RDW 13.2, Plt Count 305, MPV 7.4, Gran % 64.3, Gran # 4.0, Lymphocytes % 28.4, Monocytes % 5.3, Eosinophils % 1.3, Basophils % 0.7, Lymphocytes # 1.7, Monocytes # 0.3, Eosinophils # 0.1, Basophils # 0.0, PUBS MCHC 33.5, MCH 30.2 Current Medication Orders Sig/Cary Start time Last Medication Dose Route Stop Time Status Admin Morphine Sulfate 4 MG ONCE ONE 06/17 1145 DC 06/17 IV 06/17 1146 1138 Ondansetron HCl 4 MG ONCE ONE 06/17 1145 DC 06/17 IV 06/17 1146 1137 Morphine Sulfate 2 MG [id number] PRN 06/17 1130 DC IV Nitroglycerin 0.4 MG [id number] PRN 06/17 1030 AC 06/17 SL 1018 Sodium Chloride 10 ML PRN PRN 06/17 1015 AC IV 06/18 1004 Orders Procedure Date/time Status DIET-NOTHING BY MOUTH 06/17 D Active PARTIAL THROMBOPLASTIN TIME 06/17 1141 Complete PROTHROMBIN TIME 06/17 1141 Complete AMYLASE 06/[address] ABD/PELVIS REQ 06/17 1121 Complete D-DIMER 06/17 1055 Complete LIPASE 06/17 1008 Complete ELECTROCARDIOGRAM REQUEST 06/17 1004 Active IV SALINE LOCK 06/17 1004 Active CBC WITH AUTO DIFF 06/17 1004 Complete CARDIAC ENZYMES 06/17 100 Complete CHEM 12 PROFILE 06/17 1004 Complete CM/EKG CM/EKG EKG rate (inus bradycardia), no evid. of ischemic chgs Comments Sinus bradycardia 58/m baseline artifact no acute findings Departure Departure Time of Disposition 1246 Disposition Still a Patient Clinical Impression Primary Impression: Hemophilia Secondary Impressions: Acute pancreatitis, Non compliance with medical treatment Condition STABLE Referrals Heidi Abdul MD (Family) Additional Instructions [address] Abdul to admit due to pancreatitis, Dr Abdul requested a CT scan and serum amylase prior to admitting. I obtained a CT scan of that was negative for Radiologic evidence of acute pancreatitis, the patient informed me that he has not taken his factor VIII shot and a week. He was supposed to give himself a shots twice a week. I discussed with Dr. Abdul who agreed to admit the patient for pain control and gastrointestinal consultation Dr. Borges. Also it is okay for the patient to give himself his factor VIII injections. The patient was admitted in stable condition Dr. Ortega Discharge Counseling Counseled pt/family regarding diagnosis, test results, medications/RX, follow up needs ED Critical Care Critical Care No If Critical Care minutes are documented, the time involved in the performance of seperately reportable procedures was not counted toward critical care time documented. I directly delivered medical care to this critically ill and/or injured patient. Timely evaluation and treatment was necessary to address the significant organ system(s) dysfunction present in this patient. at 1246
--- NOTE | 2017-06-17 10:34 | RADIOLOGY REPORT PS360 ---
CHEST(2 VIEWS-NOT PORTABLE) INDICATION: Chest pain COMPARISON: PA and lateral chest 09/12/2013 FINDINGS: The lung barriga are well expanded and appear clear of infiltrate. The cardiomediastinal silhouette and vascularity are normal. The costophrenic angles are clear. The bony thorax is normal. IMPRESSION: Normal chest.
[2017-06-17 10:53] LABS: HEMOGLOBIN 15.9 g/dL (14.1-18.0); LYMPH # 1.7 K/mm3 (0.7-4.5); LYMPH % 28.4 % (10-50)
[2017-06-17 11:14] LABS: BUN 8 mg/dL (7-18); GFR (ESTIMATED) 95 ML/MIN (>60)
--- NOTE | 2017-06-17 12:31 | RADIOLOGY REPORT PS360 ---
CT ABD PELVIS W/ CONTRAST COMPARISON: CT scan abdomen pelvis 10/14/2011 HISTORY: Patient is known hemophiliac, elevated lipase levels TECHNIQUE: Multiaxial scans obtained from hemidiaphragms the pelvic floor and were performed with IV and oral contrast. Sagittal and coronal reformats were evaluated as well. FINDINGS: There is mild or borderline cardio megaly. The lower lung barriga are clear. The liver spleen and stomach appear grossly normal. The pancreas is normal size and there are no peripancreatic inflammatory changes noted. Gallbladder is partially contracted shows no definite stones. The adrenal glands are normal. The kidneys are normal in size and show symmetrical function both appearing normal. Small bowel is normal. The appendix is normal in caliber and partially air-filled. There is a moderate amount stool in ascending and transverse and proximal descending colon. The urinary bladder is partially decompressed, the prostate is normal. IMPRESSION: Essentially unremarkable CT scan abdomen and pelvis the pancreas appears entirely normal with no inflammatory changes seen.
[2017-06-17 14:31] VITALS: BP 116/78
[2017-06-17 15:22] VITALS: BP 128/85
--- NOTE | 2017-06-17 16:41 | HISTORY AND PHYSICAL REPORT ---
History and Physical ([facility]) Date of admission: 06/17/17 Chief complaint: Chest/epigastric pain History: History of Present Illness: This 37-year-old male hemophiliac resented to the emergency room with complaints of perceived midsternal and epigastric chest pain. He did not have shortness of breath, he did not have vomiting. He was evaluated in the emergency room and found to have normal labs except for a lipase level of 1682. He was admitted for further evaluation treatment including hydration. He will also be seen in the morning by Dr. Borges, final rail cutter. He is supposed to take factor VIII twice a week. He admits that he usually only takes it once a week. He has not taken it this past week, thus his mother brought a dose to the hospital and he administered it to himself after admission. Apart from that he takes no regular medications except for occasional medications for ALLERGY. Also significant is that the patient has a bicuspid aortic valve and atrial septum defect. He has also had gouty attacks. Past Medical History: Medical History: CAD? No Angina: No [place]: No Hypertension? No Hyperlipidemia? No CHF? No DVT? No PE? No COPD? No Asthma? Yes Anemia? No GERD? No Gastric ulcers? No GI Bleed? No Hernia? No Thyroid Problems? No Hypothyroidism? No CVA? No Seizures? No Diabetes? No Renal Insuffiency? No UTI? No Stones? Yes BPH? No GB Disease: No Nephritic Syndrome? No Asplenia? No Hepatitis? No Sickle Cell Disease? No Arthritis? Yes (related to joint bleeds) Migraines? Yes Cataracts? No Glaucoma? No MRSA? No HIV? No TB? No Anxiety? Yes Depression? Yes (related to of a cousin) Cancer? No More? No Additional hx: HEMOPHILIA-FACTOR 8 Positive for Hep C Adacel injection 10/06/14 Additional medical history: Injury to right hand/wrist 01/29/15. Skin infection 11/13/14 Bleeding from lip piercing 01/05/16 Recent tooth abscess. Treated with Cefdinir Surgical history: Previous Surgery?N 1. BOTH ANKLES, right 02/13/2006. Left 07/05/10 2. BOTH ELBOWS, right 05/09/12. left 06/21/09 Additional surgical history: Colonoscopy in past, [facility], Dr. So Medications: Reported Medications [FACTOR 8 ] 2,500 UNITS SQ PRN Albuterol Sulfate (Ventolin Hfa) 0.09 MG IH PRN PRN BREATHING #18 Cefdinir 300 MG PO BID #20 Allergies: Coded Allergies: clarithromycin (From BIAXIN) (Intermediate, I-RASH 06/17/17) Penicillins (06/17/17) aspirin (06/17/17) Family History: Family history: Postive for: CAD (mother), DM (mother), HTN, cancer (lung, mother). Social History: Smoking Hx Tobacco: No Smoker: Never Smoker Type: N/A Packs/day: N/A Are you exposed to second hand No Alcohol: Alcohol: Yes (occ whiskey) How much do you drink Less Than One Drink A Day For how long 2-5 Years When was your last drink Greater Than 72 Hours Ago Hx of Drug Use: Drug Use? No Patien't marital status is: single Patient's support system is: good Patient's occupation: Disabled Review of Systems: Patient unresponsive? No Constitutional No: chills, fatigue, lethargy, malaise, weak, recent weight loss. ENT No: ear ache, nose bleed, ear drainage, hearing loss, mouth pain, nasal congestion, ear ringing, sinus problems, sore throat, throat swelling, tongue pain, tongue swelling, toothache, voice change. Cardiovascular Positive for: chest pain. No: BYRD, PND, edema, orthopnea, palpitations. Respiratory No: dyspnea on exertion, PND, shortness of air, hemoptysis, non-productive, pleurisy, pleuritic pain, pneumonia, productive cough (sputum), wheezing. GI Positive for: abdominal pain. No: GERD, anorexia, constipation, diarrhea, dysphagia, hematemeis, hematochezia, hernia, melena, nausea, rectal pain, vomitting. (male) No: flank pain, frequency, hematuria, nocturia, penile lesion, penile discharge, testicular pain, testicular swelling, urgency. Skin Positive for: bruising. No: laceration, rash, swelling. Neurological No: change in LOC, bladder dysfunction, bowel dysfunction, confusion, dizziness, gait problem, headache, light headed, numbness, seizure, slurred speech, unable to speak, spinning sensation, syncope, vision change, weakness. Immune/allergy Positive for: allergy (Biaxin and penicillin). Eyes No: blurry vision, diploplia, discharge, itching, vision loss, eye pain, photophobia, redness, swelling. Musculoskeletal Positive for: extremity pain, joint pain, joint swelling. No: extremity swelling. Heme Positive for: bruising. Endocrine No: cold intolerance, dyspnea, heat, polydipsia. Psychiatric Positive for: depression, stress. No: agitation, anxious, auditory hallucinations, confused, delusional, homicidal ideation, hostile, insomnia, change in mental status, suicidal ideation, visual hallucination. Physical Exam: Vital signs: 1ST Vital Signs Result Date Time Pulse Ox 98 06/17 958 B/P 119/76 06/17 958 Temp 98.1 06/17 958 Pulse 57 06/17 958 Resp 18 06/17 958 O2 Delivery ROOM AIR 06/17 1431 Exam: General appearance: alert, no acute distress Eyes: anicteric, conjunctiva clear, PERRLA ENT: mucous membranes moist Neck: non-tender, full range of motion Cardiovascular: no ectopics, regular rate & rhythm, no murmur Respiratory: good air movement, rhonchi (a few) ABD: soft, no tenderness, no guarding, no organomegaly Genitourinary: normal voiding & quantity Extremities: no peripheral edema, multiple Tattoos Musculoskeletal: equal muscle strength Skin: dry, intact, multiple tattoos Neuro: alert, no deficit, oriented, speech clear Lab data: Labs: Laboratory Tests 06/17/17 1010: Lipase 1682 H 06/17/17 1010: Amylase 137 H, D-Dimer < 100 06/17/17 1010: Sodium 141, Potassium 4.0, Chloride 106, Carbon Dioxide 29, BUN 8, Creatinine 0.9, Estimated Creat Clear 143, Estimated GFR (MDRD) 95, Glucose 89, Calcium 8.4 L, Total Bilirubin 0.7, AST 10 L, ALT 20, Alkaline Phosphatase 81, Creatine Kinase 40, CK-MB (CK-2) Rel Index 1.3, CK and CKMB Interp < 0.5, Troponin I < 0.02, Total Protein 7.3, Albumin 3.9, Globulin 3.4 H, Albumin/Globulin Ratio 1.1, PT 10.6, INR 0.98, APTT 73.0 *H, WBC 6.1, RBC 5.25, Hgb 15.9, Hct 47.4, MCV 90.3, RDW 13.2, Plt Count 305, MPV 7.4, Gran % 64.3, Gran # 4.0, Lymphocytes % 28.4, Monocytes % 5.3, Eosinophils % 1.3, Basophils % 0.7, Lymphocytes # 1.7, Monocytes # 0.3, Eosinophils # 0.1, Basophils # 0.0, PUBS MCHC 33.5, MCH 30.2 Diagnosis(es): 1. Acute pancreatitis 2. Chest pain 3. Factor VIII deficiency hemophilia 4. Non compliance with medical treatment 5. Hyperuricemia Plan: Fluids and gastrointestinal consult. at 1642
[2017-06-17 19:00] VITALS: BP 116/81
[2017-06-17 19:55] VITALS: BP 116/81
[2017-06-18 03:57] VITALS: BP 109/73
[2017-06-18 07:24] VITALS: BP 107/71
[2017-06-18 08:08] VITALS: BP 107/71
--- NOTE | 2017-06-18 08:26 | PHARMACY CLINIC NOTE ---
Patient Demographics Patient Demographics Admission date: 06/17/17 Date: 06/18/17 Time: 0826 Allergies Coded Allergies: clarithromycin (From BIAXIN) (Intermediate, I-RASH 06/17/17) Penicillins (06/17/17) aspirin (06/17/17) HEIGHT- FT: 6 IN: 4.00 K.225 VTE General Information Labs: Laboratory Tests 06/17 1010 Coagulation PT (9.4 - 11.8 SECONDS) 10.6 INR (0.9 - 1.1) 0.98 APTT (23.6 - 34.0 SECONDS) 73.0 *H Hematology Hgb (14.1 - 18.0 g/dL) 15.9 Hct (42.0 - 52.0 %) 47.4 Plt Count (142 - 424 K/mm3) 305 Disclaimer The following section includes nursing documentation that has been pulled in for pharmacy review. Patient's VTE score: 0 Patient's VTE Risk: VERY LOW RISK Clinical trial participant? No VTE prophylaxis NQF [id number] VTE prophylaxis ordered? Yes Type of prophylaxis/treatment: WERNER at 0826
--- NOTE | 2017-06-18 08:26 | PHARMACY CLINIC NOTE ---
Patient Demographics Patient Demographics Admission date: 06/17/17 Date: 06/18/17 Time: 0826 Allergies Coded Allergies: clarithromycin (From BIAXIN) (Intermediate, I-RASH 06/17/17) Penicillins (06/17/17) aspirin (06/17/17) HEIGHT- FT: 6 IN: 4.00 K.225 VTE General Information Labs: Laboratory Tests 06/17 1010 Coagulation PT (9.4 - 11.8 SECONDS) 10.6 INR (0.9 - 1.1) 0.98 APTT (23.6 - 34.0 SECONDS) 73.0 *H Hematology Hgb (14.1 - 18.0 g/dL) 15.9 Hct (42.0 - 52.0 %) 47.4 Plt Count (142 - 424 K/mm3) 305 Disclaimer The following section includes nursing documentation that has been pulled in for pharmacy review. Patient's VTE score: 0 Patient's VTE Risk: VERY LOW RISK Clinical trial participant? No VTE prophylaxis NQF [id number] VTE prophylaxis ordered? Yes Type of prophylaxis/treatment: WRENER at 0826
--- NOTE | 2017-06-18 08:32 | ACUTE CARE PROGRESS NOTE (QUA) ---
See Addendum Progress Notes Subjective Date 06/18/17 Time 0800 Note Slept last night; remains NPO; some epigastric discomfort; denies nausea and vomiting; bowels have not moved; voiding QS Objective Findings Laboratory Tests 06/18/17 0659: Amylase 101, Lipase 297 06/17/17 1010: Uric Acid 6.6 06/17/17 1010: Lipase 1682 H 06/17/17 1010: Amylase 137 H, D-Dimer < 100 06/17/17 1010: Sodium 141, Potassium 4.0, Chloride 106, Carbon Dioxide 29, BUN 8, Creatinine 0.9, Estimated Creat Clear 143, Estimated GFR (MDRD) 95, Glucose 89, Calcium 8.4 L, Total Bilirubin 0.7, AST 10 L, ALT 20, Alkaline Phosphatase 81, Creatine Kinase 40, CK-MB (CK-2) Rel Index 1.3, CK and CKMB Interp < 0.5, Troponin I < 0.02, Total Protein 7.3, Albumin 3.9, Globulin 3.4 H, Albumin/Globulin Ratio 1.1, PT 10.6, INR 0.98, APTT 73.0 *H, WBC 6.1, RBC 5.25, Hgb 15.9, Hct 47.4, MCV 90.3, RDW 13.2, Plt Count 305, MPV 7.4, Gran % 64.3, Gran # 4.0, Lymphocytes % 28.4, Monocytes % 5.3, Eosinophils % 1.3, Basophils % 0.7, Lymphocytes # 1.7, Monocytes # 0.3, Eosinophils # 0.1, Basophils # 0.0, PUBS MCHC 33.5, MCH 30.2 Vital Signs Date Time Temp Pulse Resp B/P Pulse O2 O2 Flow FiO2 Ox Delivery Rate 06/18 0808 97.6 62 18 107/71 99 06/18 0724 97.6 62 18 107/71 99 ROOM AIR 06/18 0357 97.6 56 21 109/73 95 ROOM AIR 06/17 1955 97.7 60 20 116/81 96 06/17 1900 97.7 60 20 116/81 96 ROOM AIR 06/17 1524 98.5 56 20 128/85 100 06/17 1522 98.5 56 20 128/85 100 ROOM AIR 06/17 1431 62 06/17 1431 98.1 62 18 116/78 06/17 1431 99 ROOM AIR 06/17 1138 18 06/17 1126 57 18 116/78 99 06/17 1046 57 16 119/77 97 06/17 1018 18 06/17 0958 98.1 57 18 119/76 98 Current Medications Dextrose/Sodium Chloride 1,000 ML .STK-MED ONE IV (DC) Dextrose/Sodium Chloride 1,000 ML .STK-MED ONE IV (DC) Pantoprazole Sodium 40 MG QHS IV Iopamidol 75 ML ONCE ONE IV (DC) Sodium Chloride 10 ML ONCE ONE IV (DC) Dextrose/Sodium Chloride 1,000 ML .STK-MED ONE IV (DC) Dextrose/Sodium Chloride 1,000 ML .Q8H IV Sodium Chloride 10 ML PRN PRN IV Morphine Sulfate 2 MG Q2HP PRN IV Morphine Sulfate 4 MG ONCE ONE IV (DC) Ondansetron HCl 4 MG ONCE ONE IV (DC) Morphine Sulfate 2 MG [id number] PRN IV (DC) Nitroglycerin 0.4 MG [id number] PRN SL Sodium Chloride 10 ML PRN PRN IV 06/17 1500 06/17 2300 06/18 0700 Intake Total 556 Output Total Balance 556 Intake, IV 556 Patient 196 lb 195 lb Weight Last VS-Temp:97.6 B/P:107/71 Pulse:62 Resp:18 SaO2:99 ROOM AIR Last weight lbs:194 oz:8 K.225 Method:Bed Scales Exam General appearance: alert, no acute distress Cardiovascular: regular rate & rhythm Respiratory: clear to auscultation (bilat anterior and posterior) ABD: soft, tenderness (epigastric) Extremities: no peripheral edema Neuro: alert, oriented Assessment/Plan Problem List 1. Acute pancreatitis 2. Chest pain 3. Factor VIII deficiency hemophilia 4. Non compliance with medical treatment 5. Hyperuricemia Patient condition Improving Plan: Dr. Borges to see today This inpt stay is expected to cross 2 MNs from start of care Yes at 0832 at 0845
--- NOTE | 2017-06-18 11:00 | CONSULT NOTE ---
Dr. Borges' Consult History: History of Present Illness: Pancreatitis. Mr. Upton is a 37 year old male with a hx of Hemophilia-Factor 8. He is somewhat non-compliant with regimen. He reports he developed acute epigastric pain on Sunday which progressed and the pt presented to the ED on Sunday night. He denies, n/v/d, hematochezia, melena, or dyspepsia. He did have contrast CT abdomen which was normal and showed no evidence of pancreatitis or gallbladder dz. The pt did have initial lipase of 1682 and Amylase of 137. This has resolved with Lipase of 297 and Amylase of 101. AST 10, ALT 20, and Alk Phos 81.Total bili is 0.7. The pt has received symptomatic care and is reporting improved abd pain. He has no fever or any other complaints. He is to be d/c home later today. We were consulted for GI eval. The pt denies any continues ETOH use and has not had any Alcohol in several days. Past Medical History: Medical History: CAD? No Angina: No [place]: No Hypertension? No Hyperlipidemia? No CHF? No DVT? No PE? No COPD? No Asthma? Yes Anemia? No GERD? No Gastric ulcers? No GI Bleed? No Hernia? No Thyroid Problems? No Hypothyroidism? No CVA? No Seizures? No Diabetes? No Renal Insuffiency? No UTI? No Stones? Yes BPH? No GB Disease: No Nephritic Syndrome? No Asplenia? No Hepatitis? No Sickle Cell Disease? No Arthritis? Yes (related to joint bleeds) Migraines? Yes Cataracts? No Glaucoma? No MRSA? No HIV? No TB? No Anxiety? Yes Depression? Yes (related to of a cousin) Cancer? No More? No Additional hx: HEMOPHILIA-FACTOR 8 Positive for Hep C Adacel injection 10/06/14 Surgical history: Previous Surgery?N BOTH ANKLES BOTH ELBOWS Allergies: Coded Allergies: clarithromycin (From BIAXIN) (Intermediate, I-RASH 06/17/17) Penicillins (06/17/17) aspirin (06/17/17) Social History: Smoking Hx Tobacco: No Smoker: Never Smoker Type: N/A Packs/day: N/A Are you exposed to second hand No Alcohol: Alcohol: Yes (occ whiskey) How much do you drink Less Than One Drink A Day For how long 2-5 Years When was your last drink Greater Than 72 Hours Ago Hx of Drug Use: Drug Use? No Physical Exam: Vital signs: 1ST Vital Signs Result Date Time Pulse Ox 98 06/17 958 B/P 119/76 06/17 958 Temp 98.1 06/17 958 Pulse 57 06/17 958 Resp 18 06/17 958 O2 Delivery ROOM AIR 06/17 1431 Exam: General appearance: normal appearance Eyes: normal exam ENT: normal exam Neck: normal inspection Cardiovascular: normal exam Respiratory: normal exam ABD: tenderness (epigastric ) Genitourinary: normal voiding & quantity Extremities: normal exam Musculoskeletal: normal exam Skin: normal exam Neuro: normal exam, alert Lab data: Labs: Laboratory Tests 06/18/17 0659: Amylase 101, Lipase 297 Diagnosis(es): 1. Acute pancreatitis 2. Chest pain 3. Factor VIII deficiency hemophilia 4. Non compliance with medical treatment 5. Hyperuricemia Plan: 1.) Acute Mild Pancreatitis - Given mild episode and improving enzymes this is likely transiate idopathic etiology, however, 30% of 1st time pancretitis pt will have recurrance and if so will need MRCP at that time. Will check u/s of RUQ, Lipids (Triglycerides), and Ionized Ca levels today and have pt f/u in specialty clinic in 2-3 weeks. (AVNI FLORES APRN) Past Medical History: Medications: Reported Medications Antihemoph.fviii,B-Domain Del (Xyntha) 2,500 UNITS IV PRN PRN HEMOPHILIA Montelukast Sodium 10 MG PO QHS #30 TAB Loratadine (Claritin 10MG) 10 MG PO DAILY #30 TAB Fluticasone Propionate (Flonase 50 Mcg Nasal [place]) 1 SPRAY NA DAILY #16 GM Albuterol Sulfate (Ventolin Hfa) 0.09 MG IH PRN PRN BREATHING #18 Diagnosis(es): 1. Acute pancreatitis 2. Chest pain 3. Factor VIII deficiency hemophilia 4. Non compliance with medical treatment 5. Hyperuricemia Plan: Pancreatitis of unknown etiology. I would at this point check an ultrasound of the gallbladder and biliary system. I would exclude common causes including hypercalcemia/hypertriglyceridemia. If the patient does have recurrent pancreatitis, I would recommend MRCP to exclude pancreas divisum or any congenital pancreatic ductal anomaly or pancreatic strictures. If he has recurrent pancreatitis, I would still consider ERCP even with normal MRCP. I would do additional testing at that point to exclude other etiologies including autoimmune pancreatitis and familial pancreatitis. (MIQUEL BORGES)
[2017-06-18] MEDS ORDERED: MONTELUKAST SOD10 MG PO (11:15)
[2017-06-18] MEDS ORDERED: CLARITIN 10MG T10 MG PO (11:15)
[2017-06-18] MEDS ORDERED: FLONASE 50 MCG16 GM (11:49)
--- NOTE | 2017-06-18 13:41 | RADIOLOGY REPORT PS360 ---
US RUQ-(ABD LTD)1ORGAN/QUAD/FU HISTORY: Pancreatitis, abdominal pain PANCREATITIS ORDERING PHYSICIAN: Heidi Abdul MD PATIENT AGE: 37 years COMPARISON: None FINDINGS: PANCREAS:Unremarkable. No obvious mass or abnormal fluid collection. No ductal dilatation LIVER:No focal liver lesions demonstrated. Homogeneous echogenicity. No intrahepatic biliary ductal dilatation evident RIGHT KIDNEY:Unremarkable. Normal size and echogenicity. No hydronephrosis GALLBLADDER: No gallstones, biliary dilatation, or gallbladder wall thickening. A small polyp is present along the anterior wall the gallbladder at 2 mm. There is minimal amount sludge versus concentrated bile. IMPRESSION: 1. No gallstones. 2. Small gallbladder polyp with concentrated bile/minimal sludge.
[2017-06-18] MEDS ORDERED: OMEPRAZOLE20 MG PO (15:44)
[2017-06-18 15:47] VITALS: BP 116/67
[2017-06-18 16:35] VITALS: BP 116/67
--- NOTE | 2017-06-18 16:36 | DISCHARGE SUMMARY STANDARD ---
Discharge Summary (FCA2) Date of admission: 06/17/17 Date of discharge: 06/18/17 Problem List: 1. Acute pancreatitis 2. Chest pain 3. Factor VIII deficiency hemophilia 4. Non compliance with medical treatment 5. Hyperuricemia History of present illness: This 37-year-old male hemophiliac presented to the emergency room with complaints of perceived midsternal and epigastric chest pain. He did not have shortness of breath; he did not have vomiting. He was evaluated in the emergency room and found to have normal labs except for a lipase level of 1682. He was admitted for further evaluation/treatment including hydration. He will also be seen in the morning by Dr. Borges, automatic print developer. He was suppose to take factor VIII twice a week. He admitted that he usually only takes it once a week. He had not taken it the past week; thus his mother brought a dose to the hospital and he administered it to himself after admission. Apart from that he took no regular medications except for occasional medications for ALLERGY. Also significant was that the patient has a bicuspid aortic valve; an atrial septum defect; and also gouty attacks. Exam on admission: Vital signs: 1ST Vital Signs Result Date Time Pulse Ox 98 06/17 958 B/P 119/76 06/17 958 Temp 98.1 06/17 958 Pulse 57 06/17 958 Resp 18 06/17 958 O2 Delivery ROOM AIR 06/17 1431 Exam: General appearance: alert, no acute distress Eyes: anicteric, conjunctiva clear, PERRLA ENT: mucous membranes moist Neck: non-tender, full range of motion Cardiovascular: no ectopics, regular rate & rhythm, no murmur Respiratory: good air movement, rhonchi (a few) ABD: soft, no tenderness, no guarding, no organomegaly Genitourinary: normal voiding & quantity Extremities: no peripheral edema, multiple Tattoos Musculoskeletal: equal muscle strength Skin: dry, intact, multiple tattoos Neuro: alert, no deficit, oriented, speech clear Hospital Course: Patient slept well overnight and had only mild epigastric discomfort. He had no nausea or vomiting. Lipase had a significant drop to normal. He was seen by GI with the following comments and plan: Pancreatitis of unknown etiology. Recommended an ultrasound of the gallbladder and biliary system which was done and was normal. Also to exclude common causes including hypercalcemia/hypertriglyceridemia, labs which were ordered. He noted that with recurrent pancreatitis, MRCP be performed to exclude pancreas divisum or any congenital pancreatic ductal anomaly or pancreatic strictures. With recurrent pancreatitis, ERCP to be considered even with normal MRCP and would do additional testing to exclude other etiologies including autoimmune pancreatitis and familial pancreatitis. Patient did well the rest of the AM and was discharged to home. Laboratory data this visit: 06/17/17 1010: Lipase 1682 H 06/17/17 1010: Amylase 137 H, D-Dimer < 100 06/17/17 1010: Sodium 141, Potassium 4.0, Chloride 106, Carbon Dioxide 29, BUN 8, Creatinine 0.9, Estimated Creat Clear 143, Estimated GFR (MDRD) 95, Glucose 89, Calcium 8.4 L, Total Bilirubin 0.7, AST 10 L, ALT 20, Alkaline Phosphatase 81, Creatine Kinase 40, CK-MB (CK-2) Rel Index 1.3, CK and CKMB Interp < 0.5, Troponin I < 0.02, Total Protein 7.3, Albumin 3.9, Globulin 3.4 H, Albumin/Globulin Ratio 1.1, PT 10.6, INR 0.98, APTT 73.0 *H, WBC 6.1, RBC 5.25, Hgb 15.9, Hct 47.4, MCV 90.3, RDW 13.2, Plt Count 305, MPV 7.4, Gran % 64.3, Gran # 4.0, Lymphocytes % 28.4, Monocytes % 5.3, Eosinophils % 1.3, Basophils % 0.7, Lymphocytes # 1.7, Monocytes # 0.3, Eosinophils # 0.1, Basophils # 0.0, PUBS MCHC 33.5, MCH 30.2 06/18/17 0659: Amylase 101, Lipase 297 Imagin06/17/17 CXR IMPRESSION: Normal chest. 06/17/17 CT of abdomen and pelvis IMPRESSION: Essentially unremarkable CT scan abdomen and pelvis the pancreas appears entirely normal with no inflammatory changes seen. 06/18/17 RUQ US IMPRESSION: 1. No gallstones. 2. Small gallbladder polyp with concentrated bile/minimal sludge. Discharge medications: Continue taking these medications: Antihemoph.fviii,B-Domain Del (Xyntha) 3,000 UNIT SYRINGEKIT 2,500 UNITS INTRAVEN As Needed as needed for HEMOPHILIA Instructions: PRN FOR BLEEDING Albuterol Sulfate (Ventolin Hfa) 18 GM HFA.AER.AD 0.09 MILLIGRAM INHALATION As Needed as needed for BREATHING Qty = 18 Montelukast Sodium (Montelukast Sodium) 10 MG TABLET 10 MILLIGRAM ORAL AT BEDTIME NIGHTLY Qty = 30 Loratadine (Claritin 10MG) 10 MG TABLET 10 MILLIGRAM ORAL DAILY Qty = 30 Fluticasone Propionate (Flonase 50 Mcg Nasal [place]) 16 GM SPRAY.SUSP 1 SPRAY Nasal DAILY Qty = 16 Start taking the following new medications: Omeprazole (Omeprazole 20MG) 20 MG CAPSULE. 20 MILLIGRAM ORAL DAILY Qty = 30 Refills = 3 Disposition: Discharged to home in stable and satisfactory condition. He was to continue with meds as per reconciliation sheet. To continue with the same diet and activity. To follow-up with Dr. Abdul in [address] Borges in 2-3 weeks. at 1637
--- OUTSIDE RECORDS SUMMARY | 2017-06-22 18:11 | External Medical Summary Rpt | CCD ---
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 INC INC ROPHYLAXI S /DX 1ST TO [place] [address] SHIRA HEARDON INFUSION 6 [facility] THERAPY INC [place] [address] SHIRA SHIRA INFUSION 6 [facility] THERAPY/P INC INC ROPHYLAXI S /DX 1ST TO [place] [address] SHIRA HEARDON INFUSION 6 [facility] THERAPY INC INC PROPHYLAX IS/DX EA HOUR BASIC 70734 SHIRA SILVA METABOLIC 6 [facility] PANEL INC INC CALCIUM TOTAL DRUG 70455 SHIRA HEARDON SCREEN 6 [facility] [place]ITAT [place] [address] SHIRA HEARDON INFUSION 6 [facility] THERAPY/P INC INC ROPHYLAXI S /DX 1ST [place] [address] SHIRA HEARDON INFUSION 6 [facility] THERAPY/P INC INC ROPHYLAXI S /DX 1ST TO 1 [place] [address] SHIRA SHIRA INFUSION 6 [facility] THERAPY INC [place] [address] SHIRA HEARDON INFUSION 6 [facility] THERAPY INC [place] [address] SHIRA HEARDON INFUSION 6 [facility] THERAPY/P INC INC ROPHYLAXI S /DX 1ST [place] [address] SHIRA HEARDON INFUSION 6 [facility] THERAPY INC [place] [address] SHIRA HEARDON INFUSION 6 [facility] THERAPY/P INC INC ROPHYLAXI S /DX 1ST TO 1 [place] [address] SHIRA SHIRA INFUSION 6 [facility] THERAPY/P INC INC ROPHYLAXI S /DX 1ST TO 1 [place] [address] SHIRA SHIRA INFUSION 6 [facility] THERAPY INC INC PROPHYLAX IS/DX EA HOUR DRUG 03239 SHIRAROCKY SILVA SCREEN 6 [facility] QUANTITAT INC INC JEF VANCOMYCI N COLLECTIO 90384 SHIRA SILVA N VENOUS 6 [facility] [address] SHIRA SILVA INFUSION 6 [facility] THERAPY INC [place] PROPHYLA[place] [address] SHIRA SILVA INFUSION 6 [facility] THERAPY/P INC INC ROPHYLAXI S /DX 1ST TO 1 HR BLOOD 57037 FAMILY FAMILY COUNT 6 CARE CARE COMPLETE ASSOCIATE ASSOCIATE AUTO&AUTO S S DIFRNTL WBC COMPREHEN 16868 SHIRA SILVA SIVE 6 [facility] METABOLIC INC INC PANEL UNCLASSIF J3490 SHIRA SILVA IED DRUGS 6 [place] [address] SHIRA SILVA INFUSION 6 [facility] THERAPY INC INC PROPHYLAX IS/DX EA HOUR BLOOD 08118 SHIRA SILVA COUNT 6 [facility] COMPLETE INC INC AUTO&AUTO DIFRNTL WBC BLOOD 49730 FAMILY FAMILY COUNT 6 CARE CARE COMPLETE ASSOCIATE ASSOCIATE AUTO&AUTO S S DIFRNTL WBC BLOOD 54974 FAMILY FAMILY COUNT 6 CARE CARE COMPLETE ASSOCIATE ASSOCIATE AUTO&AUTO S S DIFRNTL WBC BLOOD 21279 FAMILY FAMILY COUNT 6 CARE CARE COMPLETE ASSOCIATE ASSOCIATE AUTO&AUTO S S DIFRNTL WBC IAADIADOO 72484 FAMILY CROWDY 6 CARE CRI STREPTOCO ASSOCIATE CCUS S GROUP A BLOOD 42972 FAMILY FAMILY COUNT 5 CARE CARE COMPLETE ASSOCIATE ASSOCIATE AUTO&AUTO S S DIFRNTL WBC BLOOD 21007 FAMILY FAMILY COUNT 5 CARE CARE COMPLETE ASSOCIATE ASSOCIATE AUTO&AUTO S S DIFRNTL WBC ANKLE L4350 SKURA[employer]iralNinjasOVoodooVox CONTROL 5 ORTHOSIS STIRRUP STYL RIGID PREFAB BLOOD 54579 FAMILY FAMILY COUNT 5 CARE CARE COMPLETE ASSOCIATE ASSOCIATE AUTO&AUTO S S DIFRNTL WBC BLOOD 45920 FAMILY FAMILY COUNT 5 CARE CARE COMPLETE ASSOCIATE ASSOCIATE AUTO&AUTO S S DIFRNTL WBC IM ADM 84936 [facility] PRQ [facility] SUBQ/IM HLTH DEPT HLTH DEPT NJXS 1 [place] V[facility] TDAP 87631 [facility] YRS/> IM HLTH DEPT HLTH DEPT [place] CYANOCOBA 02598 COMBINED COMBINED HARDY 5 PHYSICIAN PHYSICIAN VITAMIN S LA S LA B-12 MYOGLOBIN 65689 COMBINED COMBINED 5 [place] [address] COMBINED COMBINED TROPONIN 5 PHYSICIAN PHYSICIAN QUALITATI S LA S LA VE COMPREHEN 77871 COMBINED COMBINED SIVE 5 PHYSICIAN PHYSICIAN METABOLIC S LA S LA PANEL CREATINE 60989 COMBINED COMBINED KINASE MB 5 PHYSICIAN PHYSICIAN FRACTION S LA S LA ONLY INJECTION J7185 BIORX BIORX FACTOR 5 VIII PER IU CAST Q4010 [facility] PETTEY SUPPLIES 5 PHYSICIAN MIKA SHORT ARM S GROUP CAST ADULT FIBERGLAS S RADEX 42283 SHIRA SILVA WRIST 5 [facility] COMPLETE INC INC MINIMUM 3 VIEWS WRIST L3908 ADVANCED ADVANCED HAND 5 TECHNOLOG TECHNOLOG ORTHOSIS IES INC IES INC EXT CONTROL COCK-UP PREFAB RADEX 68549 SHIRA SILVA HAND 5 [facility] MINIMUM 3 INC INC VIEWS APPLICATI 47680 SHIRA SILVA ON SHORT 5 [facility] ARM INC INC SPLINT FOREARM-H AND STATIC US SOFT 25824 SHIRA SHIRA TISSUE 5 [facility] HEAD & INC INC NECK REAL TIME IMGE DOCM APPLICATI 36801 [facility] PETTEY ON CAST 5 PHYSICIAN MIKA ELBOW S GROUP FINGER SHORT ARM BLOOD 85544 FAMILY FAMILY COUNT 5 CARE CARE COMPLETE ASSOCIATE ASSOCIATE AUTO&AUTO S S DIFRNTL WBC BLOOD 61147 FAMILY FAMILY COUNT 5 CARE CARE COMPLETE ASSOCIATE ASSOCIATE AUTO&AUTO S S DIFRNTL WBC INJECTION J7185 BIORX BIORX FACTOR 5 VIII PER IU RADEX 26738 [facility] 5 Y Y COMPLETE [facility] MINIMUM 3 VIEWS BLOOD 20494 FAMILY FAMILY COUNT 5 CARE CARE COMPLETE ASSOCIATE ASSOCIATE AUTO&AUTO S S DIFRNTL WBC IAADIADOO 61165 FAMILY YAJAIRA 5 CARE R H STREPTOCO ASSOCIATE CCUS S GROUP A INJECTION J7185 BIOR[facility] BIORX FACTOR 5 VIII PER IU INJECTION J7185 BIORX BIORX FACTOR 5 VIII PER IU SIMPLE 43290 SHIRA DE LA VEGA REPAIR 5 [facility] / P 2.5CM/< TDAP 83598 SHIRA SHIRA VACCINE 7 5 [facility] YRS/> IM INC INC IM ADM 89715 SHIRA SHIRA PRQ ID 5 [facility] SUBQ/IM INC INC NJXS 1 VACCINE BLOOD 34729 FAMILY FAMILY COUNT 4 CARE CARE COMPLETE ASSOCIATE ASSOCIATE AUTO&AUTO S S DIFRNTL WBC IAADIADOO 51133 FAMILY YAJAIRA 4 CARE R H INFLUENZA ASSOCIATE S BLOOD 55521 FAMILY FAMILY COUNT 4 CARE CARE COMPLETE ASSOCIATE ASSOCIATE AUTO&AUTO S S DIFRNTL WBC BLOOD 71126 FAMILY FAMILY COUNT 4 CARE CARE COMPLETE ASSOCIATE ASSOCIATE AUTO&AUTO S S DIFRNTL WBC INJECTION J7185 BIOR[facility] BIORX FACTOR 4 VIII PER IU BLOOD 01268 FAMILY FAMILY COUNT 4 CARE CARE COMPLETE ASSOCIATE ASSOCIATE AUTO&AUTO S S DIFRNTL WBC INJECTION J7185 BIORX BIORX FACTOR 4 VIII PER IU INJECTION J7185 BIORX BIORX FACTOR 4 VIII PER IU BLOOD 57727 FAMILY FAMILY COUNT 4 CARE CARE COMPLETE ASSOCIATE ASSOCIATE AUTO&AUTO S S DIFRNTL WBC ADD LW L2820 HARJIT LOMBARDI EXT ORTH 4 ORTHOPEDI ORTHOPEDI SFT CS CS INTERFCE MOLD BELW KNEE ADDITION L2210 HARJIT LOMBARDI LOWER 4 ORTHOPEDI ORTHOPEDI EXTREM CS CS DORSIFLEX ASSIST EA JOINT ADD LOW L2330 HARJIT LOMBARDI EXT LACER 4 ORTHOPEDI ORTHOPEDI MOLD PT CS CS MDL CSTM ORTHOTIC ONLY ANK FT L1940 HARJIT LOMBARDI ORTHOTIC 4 ORTHOPEDI ORTHOPEDI PLASTIC/O CS CS TH MATERIAL CUSTOM PAUL INJECTION J7185 BIORX BIORX FACTOR 4 VIII PER IU BLOOD 61018 LISA Gordon COUNT 4 G G COMPLETE AUTO&AUTO DIFRNTL WBC IAADIADOO 37640 MULBERRY MULBERRY 4 NEW NEW STREPTOCO CCUS GROUP A BLOOD 96244 MULBERRY MULBERRY COUNT 4 NEW NEW COMPLETE AUTO&AUTO DIFRNTL WBC BLOOD 66345 MULBERRY BALBAUGH COUNT 4 NEW AND COMPLETE AUTO&AUTO DIFRNTL WBC IAADIADOO 54516 MULBERRY MULBERRY 4 NEW NEW STREPTOCO CCUS GROUP A INJECTION J7185 BIORX BIORX FACTOR 4 VIII PER IU INJECTION J7185 BIORX BIORX FACTOR 4 VIII PER IU INJECTION J7185 BIORX BIORX FACTOR 4 VIII PER IU NONINVASI 10728 LISA Gordon VE 4 G G EAR/PULSE OXIMETRY SINGLE DETER BLOOD 88845 LISA Gordon COUNT 4 G G COMPLETE AUTO&AUTO DIFRNTL WBC COLLECTIO 74948 LISA Gordon N 4 G G CAPILLARY BLOOD SPECIMEN RADIOLOGI 31117 SHIRA Desai EXAM 4 [facility] CHEST 2 INC INC VIEWS FRONTAL&L ATERAL ADMN SET A7003 YOUR YOUR SM VOL 4 PHARMACY PHARMACY [facility] PNEUMAT NEBULIZR DISPBL NEBULIZER E0570 [facility]ATCH WITH 4 HOME HOME COMPRESSO MEDICAL MEDICAL R EQUIPME EQUIPME NONINVASI 60506 FAMILY FAMILY VE 3 CARE CARE EAR/PULSE ASSOCIATE ASSOCIATE OXIMETRY S S SINGLE DETER BLOOD 05976 MULBERRY MULBERRY COUNT 3 NEW NEW COMPLETE AUTO&AUTO DIFRNTL WBC BLOOD 22301 FAMILY LISA COUNT 3 CARE PAUL COMPLETE ASSOCIATE AUTO&AUTO S DIFRNTL WBC COLLECTIO 50557 FAMILY GONZALEZ N 3 CARE PAUL CAPILLARY [...] NON-INS RX INFUS CATH PER WK RADEX 46915 [facility] 3 Y Y [facility] [place] MINIMUM 3 VIEWS RADEX 67832 SHIRA SILVA SPINE 3 [facility] LUMBOSACR INC INC AL MINIMUM 4 VIEWS RADEX 40476 SYL SYL SPINE 3 MARA MARA LUMBOSACR AL 2/3 VIEWS URNLS DIP 24657 LISA Gordon 3 G G STICK/TAB LET RGNT NON-AUTO W/O MICRSCP SUPPLIES A4221 BIORX BIORX FOR MAINT 3 NON-INS RX INFUS CATH PER WK INJECTION J7185 BIORX BIORX FACTOR 3 VIII PER IU ORTHOTIC 92057 SHIRA SILVA MGMT&DAREN 3 [facility] NJ UXTR INC INC LXTR&/TRN K EA 15 ELB ORTH L3760 ADVANCED ADVANCED W/ADJ 3 TECHNOLOG TECHNOLOG LOCK JNT IES INC IES INC PRFAB W/FIT&ADJ TYPE INJ AHF/ J7186 BIOR[facility] BIORX VWF CMPLX 3 PER FACTOR VIII IU SUPPLIES A4221 BIORX BIORX FOR MAINT 3 NON-INS RX INFUS CATH PER WK BLOOD 58825 MULBERRY MULBERRY COUNT 3 NEW NEW COMPLETE AUTO&AUTO DIFRNTL WBC SUPPLIES A4221 BIORX BIORX FOR MAINT 2 NON-INS RX INFUS CATH PER WK INJ AHF/ J7186 BIORX BIORX VWF CMPLX 2 PER FACTOR VIII IU INJ AHF/ J7186 BIORX BIORX VWF CMPLX 2 PER FACTOR VIII IU RADEX 23206 [place] CHEPE ELBOW 2 MEDICAL AMBROSIO COMPLETE SERV MINIMUM 3 FOUNDATIO VIEWS N IIV3 60983 SHIRA SILVA VACCINE 2 [facility] VIRUS 0.5 ML DOSAGE IM USE APPL 38652 SHIRA SILVA MODALITY 2 [facility] 1/> AREAS INC INC ULTRASOUN D EA 15 MIN MANUAL 26928 SHIRA SILVA THERAPY 2 [facility] TQS 1/> INC INC REGIONS EACH 15 MINUTES E-STIM G0283 SHIRA SILVA 1/> AREAS 2 [facility] OTH THAN INC INC WND CARE PART TX PLAN APPLICATI 11110 SHIRA SILVA ON 2 [facility] MODALITY INC INC 1/> AREAS HOT/COLD PACKS INJ AHF/ J7186 BIORX BIORX VWF CMPLX 2 PER FACTOR VIII IU APPL 90188 SHIRA SILVA MODALITY 2 [facility] 1/> AREAS INC INC ULTRASOUN D EA 15 MIN MANUAL 69863 SHIRA SILVA THERAPY 2 [facility] TQS 1/> INC INC REGIONS EACH 15 MINUTES E-STIM G0283 SHIRA SILVA 1/> AREAS 2 [facility] OTH THAN INC INC WND CARE PART TX PLAN APPLICATI 38162 SHIRA SILVA ON 2 [facility] MODALITY INC INC 1/> AREAS HOT/COLD PACKS INJ AHF/ J7186 BIORX BIORX VWF CMPLX 2 PER FACTOR VIII IU APPL 44450 SHIRA SILVA MODALITY 2 [facility] 1/> AREAS INC INC ULTRASOUN D EA 15 MIN MANUAL 85159 SHIRA SILVA THERAPY 2 [facility] TQS 1/> INC INC REGIONS EACH 15 MINUTES E-STIM G0283 SHIRA SILVA 1/> AREAS 2 [facility] OTH THAN INC INC WND CARE PART TX PLAN APPLICATI 08552 SHIRA SILVA ON 2 [facility] MODALITY INC INC 1/> AREAS HOT/COLD PACKS E-STIM G0283 SHIRA SILVA 1/> AREAS 2 [facility] OTH THAN INC INC WND CARE PART TX PLAN APPL 91302 SHIRA SILVA MODALITY 2 [facility] 1/> AREAS INC INC ULTRASOUN D EA 15 MIN MANUAL 33473 SHIRA SILVA THERAPY 2 [facility] TQS 1/> INC INC REGIONS EACH 15 MINUTES APPLICATI 08718 SHIRA SILVA ON 2 [facility] MODALITY INC INC 1/> AREAS HOT/COLD PACKS APPLICATI 08992 SHIRA SILVA ON 2 [facility] MODALITY INC INC 1/> AREAS HOT/COLD PACKS APPL 62177 SHIRA SILVA MODALITY 2 [facility] 1/> AREAS INC INC ULTRASOUN D EA 15 MIN MANUAL 56245 SHIRA SILVA THERAPY 2 [facility] TQS 1/> INC INC REGIONS EACH 15 MINUTES E-STIM G0283 SHIRA SILVA 1/> AREAS 2 [facility] OTH THAN INC INC WND CARE PART TX PLAN E-STIM G0283 SHIRA SILVA 1/> AREAS 2 [facility] OTH THAN INC INC WND CARE PART TX PLAN APPL 04976 SHIRA SILVA MODALITY 2 [facility] 1/> AREAS INC INC ULTRASOUN D EA 15 MIN MANUAL 50734 SHIRA SILVA THERAPY 2 [facility] TQS 1/> INC INC REGIONS EACH 15 MINUTES APPLICATI 53802 SHIRA SILVA ON 2 [facility] MODALITY INC INC 1/> AREAS HOT/COLD PACKS THERAPEUT 78652 SHIRAROCKY SILVA IC PX 1/> 2 [facility] AREAS INC INC EACH 15 MIN EXERCISES INJ AHF/ J7186 BIORX BIORX VWF CMPLX 2 PER FACTOR VIII IU THROMBOPL 35049 [facility] 2 Y Y TIME [facility] PARTIAL PLASMA/WH OLE BLOOD SEDIMENTA 60896 UNIVERSIT UNIVERSIT TION RATE 2 Y Y RBC [facility]OSPITAL HOSPITAL AUTOMATED PROTHROMB 53028 [facility] IN TIME 2 Y Y HOSPITAL HOSPITAL THER 21301 [facility] PROPH/DX 2 Y Y NJX IV HOSPITAL HOSPITAL PUSH SINGLE/1S T SBST/DRUG BLOOD 47734 [facility] COUNT 2 Y Y COMPLETE [facility] AUTO&AUTO DIFRNTL WBC THERAPEUT 25441 [facility] IC 2 Y Y INJECTION [facility] IV PUSH EACH NEW DRUG INJECTION J2270 [facility] MORPHINE 2 Y Y SULFATE [facility] UP TO 10 MG C-REACTIV 01179 [facility] E PROTEIN 2 Y Y HOSPITAL [facility] COLLECTIO 40959 [facility] N VENOUS 2 Y Y BLOOD [facility] VENIPUNCT URE INJECTION J2405 [facility] 1 MG RADEX 03523 [place] MERHAR ELBOW 2 MEDICAL GAR COMPLETE SERV MINIMUM 3 FOUNDATIO VIEWS N APPLICATI 35537 SHIRA SILVA ON 2 [facility] MODALITY INC INC 1/> AREAS HOT/COLD PACKS MANUAL 45140 SHIRA SILVA THERAPY 2 [facility] TQS 1/> INC INC REGIONS EACH 15 MINUTES PHYSICAL 51420 SHIRA SILVA THERAPY 2 [facility] EVALUATIO INC INC N INJECTION J2710 [facility] 2 Y Y NEOSTIGMI [facility] NE METHYLSUL FATE UP TO 0.5 MG INJECTION J3010 [facility] FENTANYL 2 Y Y CITRATE [facility] 0.1 MG UNCLASSIF J3490 [facility] IED DRUGS 2 Y Y HOSPITAL [facility]PITAL THROMBOPL 45839 [facility] ASTIN 2 Y Y TIME [facility] PARTIAL PLASMA/WH OLE BLOOD RINGERS J7120 [facility] LACTATE 2 Y Y INFUSION [facility] UP TO 1000 CC INJECTION J1170 [facility] 2 Y Y HYDROMORP [facility] KADY UP TO 4 MG PROTHROMB 38172 [facility] IN TIME 2 Y Y HOSPITAL HOSPITAL INJECTION J2250 [facility] 2 Y Y MIDAZOLAM [facility] HCL PER 1 MG INJECTION J2270 [facility] MORPHINE 2 Y Y SULFATE [facility] UP TO 10 MG BLOOD 03650 [facility] COUNT 2 Y Y COMPLETE [facility] AUTOMATED ANESTHESI 12260 [place] A ELBOW 2 LTH [place] JOINT ANESTHESI DIAGNOSTI A PSC C ARTHROSCO PIC INJECTION J2405 [facility] 2 [facility] H[facility] MG ARTHROSCO 05709 [facility] PY ELBOW 2 Y Y SURGICAL [facility] [place] [address] [facility] SURG 2 Y Y PATHOLOGY [facility] GROSS&SONU ROSCOPIC EXAM PARTIAL 96653 CAM LEVY EXCISION 2 SRI SRI BONE OLECRANON PROCESS ARTHRT 80969 CAM LEVY ELBOW 2 SRI SRI CAPSULAR EXCISION CAPSULAR RLS SPX ARTHROSCO 50137 CAM LEVY PY ELBOW 2 SRI SRI SURGICAL SYNOVECTO MY COMPLETE INJ AHF/ J7186 BIORX BIORX VWF CMPLX 2 PER FACTOR VIII IU INJ AHF/ J7186 BIORX BIORX VWF CMPLX 2 PER FACTOR VIII IU FACTOR J7190 BIORX BIORX VIII 2 ANTIHEMOP HILIC FACTOR HUMAN PER IU RADEX 45309 [place] ELBOW 2 MEDICAL AMBROSIO COMPLETE SERV MINIMUM 3 FOUNDATIO VIEWS N FACTOR J7190 BIORX BIORX VIII 2 ANTIHEMOP HILIC FACTOR HUMAN PER IU INJ AHF/ J7186 BIORX BIORX VWF CMPLX 2 PER FACTOR VIII IU BLOOD 42019 [facility] COUNT 2 [place] COMPLETE AUTO&AUTO DIFRNTL WBC INJ AHF/ J7186 BIORX BIORX VWF CMPLX 2 PER FACTOR VIII IU PROTHROMB 50662 LISA Gordon IN TIME 2 RADIOLOGI 88540 SHIRA SILVA C EXAM 2 [facility] CHEST 2 INC INC VIEWS FRONTAL&L ATERAL BLOOD 04-24-201 64593 LISA Gordon COUNT 2 COMPLETE AUTO&AUTO DIFRNTL WBC TRANSFERA 03115 LISA Gordon SE 2 ALANINE AMINO ALT SGPT TRANSFERA 78212 LISA SIMS SE 2 ASPARTATE AMINO AST SGOT SUPPLIES A4221 BIORX BIORX FOR MAINT 2 NON-INS RX INFUS CATH PER WK INJ AHF/ J7186 BIORX BIORX VWF CMPLX 2 PER FACTOR VIII IU FACTOR J7190 BIORX BIORX VIII 2 ANTIHEMOP HILIC FACTOR HUMAN PER IU INJ AHF/ J7186 BIORX BIORX VWF CMPLX 2 PER FACTOR VIII IU FACTOR J7190 BIORX BIORX VIII 2 ANTIHEMOP HILIC FACTOR HUMAN PER IU BLOOD 20000 [facility]ARE COUNT 2 [place] COMPLETE AUTO&AUTO DIFRNTL WBC CULTURE 49664 COMBINED COMBINED BACTERIAL 2 PHYSICIAN PHYSICIAN S LA S LA QUANTTATI VE COLONY COUNT URINE URNLS DIP 72908 WARE WARE 2 [place] STICK/TAB LET RGNT NON-AUTO W/O MICRSCP THROMBOPL 56650 SHIRA SILVA ASTIN 2 [facility] TIME INC INC PARTIAL PLASMA/WH OLE BLOOD COMPREHEN 19650 [facility] SIVE 2 [facility] METABOLIC INC INC PANEL LOCM Q9967 [facility] SILVA [phone] [facility] MG/ML INC INC IODINE CONCENTRA TION PER ML BLOOD 29594 [facility] COUNT 2 [facility] COMPLETE INC INC AUTO&AUTO DIFRNTL WBC URNLS DIP 23454 [facility] SILVA 2 [facility] STICK/TAB INC [place] [address] SYL SYL ABDOMEN & 2 MARA MARA PELVIS W/CONTRAS T MATERIAL PROTHROMB 87975 [facility] RINALDI IN TIME 2 [facility] JR THO INC FACTOR J7190 BIORX BIORX VIII 2 ANTIHEMOP HILIC FACTOR HUMAN PER IU BLOOD 37316 FAMILY FAMILY COUNT 2 CARE CARE COMPLETE ASSOCIATE ASSOCIATE AUTO&AUTO S S DIFRNTL WBC FACTOR J7190 BIORX BIORX VIII 1 ANTIHEMOP HILIC FACTOR HUMAN PER IU ANK FT L1906 ADVANCED ADVANCED ORTHOS 1 TECHNOLOG TECHNOLOG MX-LIG IES INC IES INC ANK SUPT PREFB OFF SHELF ORTHOTIC 47886 SH[facility] SILVA MGMT&DAREN 1 [facility] RI UXTR INC INC LXTR&/TRN K EA 15 BLOOD 09444 FAMILY FAMILY COUNT 1 CARE CARE COMPLETE ASSOCIATE ASSOCIATE AUTO&AUTO S S DIFRNTL WBC BLOOD 38190 FAMILY FAMILY COUNT 1 CARE CARE COMPLETE ASSOCIATE ASSOCIATE AUTO&AUTO S S DIFRNTL WBC IAADIADOO 22052 FAMILY MULBERRY 1 CARE NEW STREPTOCO ASSOCIATE CCUS S GROUP A BLOOD 26773 [facility] OCCULT 1 [facility] PEROXIDAS INC INC E ACTV QUAL FECES 1-3 SPEC IAADIADOO 64949 FAMILY MULBERRY 1 CARE NEW STREPTOCO ASSOCIATE CCUS S GROUP A BLOOD 51256 FAMILY FAMILY COUNT 1 CARE CARE COMPLETE ASSOCIATE ASSOCIATE AUTO&[place] [address] [facility] S[facility] ROTAVIRUS 1 [place] [address] [facility] S[facility] CLOSTRIDI 1 [facility] INC INC DIFFICILE TOXIN IAADIADOO 82255 FAMILY YAJAIRA 1 CARE R H STREPTOCO ASSOCIATE CCUS S GROUP A IAADIADOO 70710 LISA J 1 CARE STREPTOCO ASSOCIATE CCUS S GROUP A RADIOLOGI 66307 [facility] C EXAM 0 [facility] CHEST 2 INC INC VIEWS FRONTAL&L ATERAL BLOOD 30139 FAMILY MULBERRY COUNT 0 CARE NEW COMPLETE ASSOCIATE AUTO&AUTO S DIFRNTL WBC IAADIADOO 99121 FAMILY MULBERRY 0 CARE NEW STREPTOCO ASSOCIATE CCUS S GROUP A ARTHROSCO 54377 [place] MICHO[place] PY ANKLE 0 MEDICAL ALLEN SURGICAL SERV DEBRIDEME FOUNDATIO NT LIMITED ANESTHESI 09703 MATEO YADIRA A 0 MEDICAL JOSH ARTHROSCO SERVICES PIC PROCEDURE ANKLE & FOOT OTH LOCAL 8087 [facility] 0 Y Y EXCISION/ [facility] DESTRUCTI ON LESION ANK JOINT IAADIADOO 57084 FAMILY LISA J 0 CARE STREPTOCO ASSOCIATE CCUS S GROUP A BLOOD 91076 FAMILY FAMILY COUNT 0 CARE CARE COMPLETE ASSOCIATE ASSOCIATE AUTO&AUTO S S DIFRNTL WBC RADEX 25990 MATEO MANAS ANGELIQUE ANKLE 0 MEDICAL COMPLETE SERV MINIMUM 3 FOUNDATIO VIEWS 25 52678 LAB [facility]ANI HYDROXY 0 AMERIC AMERIC INCLUDES HOLDING HOLDING FRACTIONS IF PERFORMED THERAPEUT 92729 [facility] IC PX 1/> 0 Y Y [facility] EACH 15 MIN EXERCISES PHYSICAL 95870 [facility] 9 [facility] APPL[facility] 79875 [facility] SILVA ON 9 [facility] MODALITY INC INC 1/> AREAS HOT/COLD PACKS APPL 40449 SH[facility] SILVA MODALITY 9 [facility] 1/> AREAS INC INC ULTRASOUN D EA 15 MIN APPL 32454 [facility] S[facility] MODALITY 9 [facility] 1/> AREAS INC INC ELEC STIMJ UNATTENDE D THERAPEUT 47967 SH[facility] SILVA IC PX /> 9 [facility] AREAS INC INC EACH 15 MIN EXERCISES RADEX 83327 MANINDERY SYL, ELBOW 9 MEDICAL ROLANDO COMPLETE IMAGING MINIMUM 3 ASSOCIATE VIEWS S APPL 62689 SHIRA SILVA MODALITY 9 [facility] 1/> AREAS INC INC ULTRASOUN D EA 15 MIN APPL 58888 [facility] SILVA MODALITY 9 [facility] 1/> AREAS INC INC ELEC STIMJ UNATTENDE D THERAPEUT 36872 SHIRA SILVA IC PX 1/> 9 [facility] AREAS INC INC EACH 15 MIN EXERCISES APPLICATI 56400 [facility] SILVA ON 9 [facility] MODALITY INC INC 1/> AREAS HOT/COLD PACKS THERAPEUT 62873 SHIRA SILVA IC PX 1/> 9 [facility] AREAS INC INC EACH 15 MIN EXERCISES APPLICATI 89263 [facility]ILVA ON 9 [facility] MODALITY INC INC 1/> AREAS HOT/COLD PACKS APPL 13958 [facility] SILVA MODALITY 9 [facility] 1/> AREAS INC INC ELEC STIMJ UNATTENDE D APPL 74892 [facility] SILVA MODALITY 9 [facility] 1/> AREAS INC INC ULTRASOUN D EA 15 MIN APPL 31756 SH[facility] SILVA MODALITY 9 [facility] 1/> AREAS INC INC ULTRASOUN D EA 15 MIN APPL 96960 [facility] SILVA MODALITY 9 [facility] 1/> AREAS INC INC ELEC STIMJ UNATTENDE D PHYSICAL 59552 [facility] THERAPY 9 [facility] EVALUATIO INC INC N BLOOD 08990 FAMILY ZEESHANBERRY, COUNT 9 CARE ALEKSANDR Walker COMPLETE ASSOCIATE AUTO&AUTO S DIFRNTL WBC APPL 26568 SHIRA SILVA [facility] 1/> AREAS INC INC IONTOPHOR ESIS EA 15 MIN APPLICATI 23961 SHIRA SILVA ON 9 [facility] MODALITY INC INC 1/> AREAS HOT/COLD PACKS BLOOD 98210 FAMILY YAJAIRA, COUNT 9 CARE Deneen BALES COMPLETE ASSOCIATE AUTO&AUTO S DIFRNTL WBC INJECTION J2997 [facility] 9 Y [facility]ANS [facility] RECOMBINA NT 1 MG INITIAL 75992 [facility] OBSERVATI 9 Y Y ON HOSPITAL HOSPITAL CARE/DAY 30 MINUTES INJECTION J2270 [facility] MORPHINE 9 Y [facility] UP TO 10 MG UNLISTED 86052 [facility] PROCEDURE 9 Y Y HOSPITAL HOSPITAL ARTHROSCO PY ARTHROSCO 62534 [facility] PY ELBOW 9 Y Y SURGICAL [facility]PITAL HOSPITAL SYNOVECTO MY COMPLETE INJECTION J2405 [facility] 9 Y Y [facility] ON HCL PER 1 MG DECALCIFI 85447 [facility] CATION 9 Y [place] [address] [facility] SURG 9 Y Y PATHOLOGY HOSPITAL HOSPITAL GROSS&SONU ROSCOPIC EXAM INJECTION J3010 [facility] FENTANYL 9 Y Y CITRATE [facility] HOSPITAL 0.1 MG UNCLASSIF J3490 [facility] IED DRUGS 9 Y HANS [facility] RAD RESCJ 62347 MATEO CAM CAPSL 9 [facility] TISS&HTRT SERV PC BONE FOUNDATIO ELBW CONTRCT EXCISION 47949 MATEO LEVY RADIAL 9 MEDICAL [facility] SERV FOUNDATIO ANESTHESI 78467 Reid ZIEGLER 9 [facility] OPEN/SURG SERVICES ARTHRS RADICAL PROC ELBOW INJECTION J2175 [facility] 9 Y Y [facility] HCL PER 100 MG INJECTION J2795 [facility] 9 Y Y [facility] NE HYDROCHLO RIDE 1 MG INSJ PRPH 85652 [facility] CVC W/O 9 Y Y SUBQ [facility] HOSPITAL PORT/IMAGING AIDE AGE 6 YR/> FACTOR 51845 [facility] INHIBITOR 9 Y Y TEST [facility] BLOOD 68183 [facility] COUNT 9 Y Y COMPLETE [facility] AUTO&AUTO DIFRNTL WBC RADIOLOGI 06857 [facility] C EXAM 9 Y Y CHEST 2 [facility] VIEWS FRONTAL&L ATERAL RADEX 95951 MATEO MATHIAS, ELBOW 2 9 MEDICAL IHTESH N VIEWS SERV FOUNDATIO BLOOD 88937 FAMILY LISA, J COUNT 9 CARE G COMPLETE ASSOCIATE AUTO&AUTO S DIFRNTL WBC APPL 73293 SHIRA SILVA MODALITY 9 [facility] 1/> AREAS INC INC ULTRASOUN D EA 15 MIN THERAPEUT 78837 SHIRA SILVA IC PX 1/> 9 [facility] AREAS INC INC EACH 15 MIN EXERCISES APPL 99774 SHIRA SILVA MODALITY 9 [facility] 1/> AREAS INC INC IONTOPHOR ESIS EA 15 MIN PHYSICAL 35737 SHIRA SILVA THERAPY 9 [facility] EVALUATIO INC INC N APPL 63033 SHIRA SILVA MODALITY 9 [facility] 1/> AREAS INC INC IONTOPHOR ESIS EA 15 MIN THERAPEUT 13182 SHIRA SILVA IC PX 1/> 9 [facility] AREAS INC INC EACH 15 MIN EXERCISES MANUAL 07037 SHIRA SILVA THERAPY 9 [facility] TQS 1/> INC INC REGIONS EACH 15 MINUTES APPL 56930 SHIRA SILVA MODALITY 9 [facility] 1/> AREAS INC INC ULTRASOUN D EA 15 MIN RADIOLOGI 57684 Giselle RILEY 9 MEDICAL SERENITY [place] EXAMINATI SERV ON KNEE FOUNDATIO 1/2 VIEWS RADIOLOGI 26191 Giselle RILEY 9 MEDICAL SERENITY Tor[place] EXAMINATI SERV ON KNEE 3 FOUNDATIO V[place] ANY 78199 ROLANDO C SYL, JT LOWER 9 SYL ROLANDO EXTREM W/O CONTRAST MATRL COLLECTIO 03879 FAMILY MULBERRY, N 9 CARE ALEKSANDR T CAPILLARY ASSOCIATE BLOOD S SPECIMEN BLOOD 32271 FAMILY MULBERRY, COUNT 9 CARE ALEKSANDR T COMPLETE ASSOCIATE AUTO&AUTO S DIFRNTL WBC RADIOLOGI 09095 Giselle LAM 9 MEDICAL ROLANDO EXAMINATI IMAGING ON KNEE 3 ASSOCIATE VIEWS S BLOOD 28868 FAMILY MULBERRY, COUNT 9 CARE ALEKSANDR T COMPLETE ASSOCIATE AUTO&AUTO S DIFRNTL WBC COLLECTIO 74212 FAMILY MULBERRY, N 9 CARE ALEKSANDR T CAPILLARY ASSOCIATE BLOOD S SPECIMEN RADEX 06674 [facility] ELBOW 2 9 Y Y [facility] THERAPEUT 73230 SHIRA SILVA IC PX 1/> 9 [facility] AREAS INC INC EACH 15 MIN EXERCISES APPL 28310 SHIRA SILVA MODALITY 9 [facility] 1/> AREAS INC INC ELEC STIMJ UNATTENDE D APPLICATI 07095 SHIRA SILVA ON 9 [facility] MODALITY INC INC 1/> AREAS HOT/COLD PACKS APPLICATI 45200 SHIRA SILVA ON 9 [facility] MODALITY INC INC 1/> AREAS HOT/COLD PACKS THERAPEUT 16182 SHIRA SILVA IC PX 1/> 9 [facility] AREAS INC INC EACH 15 MIN EXERCISES APPL 42576 SHIRA SILVA MODALITY 9 [facility] 1/> AREAS INC INC ELEC STIMJ UNATTENDE D URNLS DIP 69471 FAMILY YAJAIRA, 9 CARE R NII STICK/TAB ASSOCIATE LET RGNT S NON-AUTO W/O MICRSCP CULTURE 64656 COMBINED COMBINED BACTERIAL 9 PHYSICIAN PHYSICIAN S LAB S LAB QUANTTATI VE COLONY COUNT URINE URNLS DIP 52885 FAMILY YAJAIRA, 9 CARE R NII STICK/TAB ASSOCIATE LET RGNT S NON-AUTO W/O MICRSCP APPL 65079 SHIRA SILVA MODALITY 9 [facility] 1/> AREAS INC INC ELEC STIMJ UNATTENDE D THERAPEUT 53046 SHIRA SILVA IC PX 1/> 9 [facility] AREAS INC INC EACH 15 MIN EXERCISES APPLICATI 00914 SHIRA SILVA ON 9 [facility] MODALITY INC INC 1/> AREAS HOT/COLD PACKS MANUAL 09090 SHIRA SILVA THERAPY 9 [facility] TQS 1/> INC INC REGIONS EACH 15 MINUTES THERAPEUT 17488 SHIRA SILVA IC PX 1/> 9 [facility] AREAS INC INC EACH 15 MIN EXERCISES THERAPEUT 02275 SHIRA SILVA IC PX 1/> 9 [facility] AREAS INC INC EACH 15 MIN EXERCISES APPL 15862 SHIRA SILVA MODALITY 9 [facility] 1/> AREAS INC INC ELEC STIMJ UNATTENDE D MANUAL 94270 SHIRA SILVA THERAPY 9 [facility] TQS 1/> INC INC REGIONS EACH 15 MINUTES APPLICATI 59077 SHIRA SILVA ON 9 [facility] MODALITY INC INC 1/> AREAS HOT/COLD PACKS MANUAL 59852 SHIRA SILVA THERAPY 9 [facility] TQS 1/> INC INC REGIONS EACH 15 MINUTES THERAPEUT 03312 SHIRA SILVA IC PX 1/> 9 [facility] AREAS INC INC EACH 15 MIN EXERCISES PHYSICAL 94466 SHIRA SILVA THERAPY 9 [facility] H[facility] EVALUATIO INC INC N THERAPEUT 30641 SHIRA SILVA IC PX 1/> 9 [facility] AREAS INC INC EACH 15 MIN EXERCISES ANKLE L1930 PROSTHETI PROSTHETI FOOT 8 C&ORTHOTI C&ORTHOTI ORTHOTIC C C PLASTIC/O ASSOCIATE ASSOCIATE Digital [employer] PREFAB RADEX 58292 [place] ABDIRASHID, ANKLE 8 MEDICAL REJI K COMPLETE SERV MINIMUM 3 F[facility] VIEWS HOSPITAL 06772 [facility], DISCHARGE 8 [facility] DAY SERV MANAGEMEN FOUNDATIO T 30 MIN/< SBSQ 91011 [facility] 8 [facility] CARE/DAY SERV [address] PELVIS 67613 [facility], MEDICAL MIKEY W/[place] [address] [facility], ABDOMEN 8 MEDICAL MIKEY W/CONTRAS SERV T FOUNDATIO MATERIAL INITIAL 41317 MS OLY INPATIENT 8 MEDICAL , JANAE CONSULT SERV R NEW/ESTAB FOUNDATIO PT 55 MIN INITIAL 61984 [facility] 8 [facility] CARE/DAY SERV 70 FOUNDATIO MINUTES INFUSION 0011 [place] [address] Y Y [facility] BLOOD 69795 FAMILY YAJAIRA, COUNT 8 CARE R NII COMPLETE ASSOCIATE AUTO&[place] [address] [facility], ABDOMEN 8 MEDICAL VILMA P W/CONTRAS IMAGING T ASSOCIATE MATERIAL S CT PELVIS 47879 [place] [facility], 8 MEDICAL VILMA P W/CONTRAS IMAGING T ASSOCIATE MATERIAL S 3D 41932 [place] [facility], RENDERING 8 MEDICAL VILMA P IMAGING W/INTERP& ASSOCIATE POSTPROC S DIFF WORK STATION BLOOD 88497 FAMILY ZEESHANBERRY, COUNT 8 CARE ALEKSANDR T COMPLETE ASSOCIATE AUTO&AUTO S DIFRNTL WBC BLOOD 74338 FAMILY LISA, J COUNT 8 CARE G COMPLETE ASSOCIATE AUTO&AUTO S DIFRNTL WBC PROTHROMB 23870 Heidi REDD IN TIME 8 CARE G ASSOCIATE S THROMBOPL 44229 COMBINED COMBINED ASTIN 8 PHYSICIAN PHYSICIAN TIME S LAB S LAB PARTIAL PLASMA/WH OLE BLOOD Encounters Encounter Start End Date Code Location Performer Type Date OFFICE 65628 FAMILY OCONNOR OUTPATIEN 7 7 CARE T VISIT ASSOCIATE 25 S MINUTES OFFICE 50068 FAMILY ALYSSA OUTPATIEN 7 7 CARE T VISIT ASSOCIATE 15 S MINUTES OFFICE 25586 FAMILY CHAZ OUTPATIEN 7 7 CARE T VISIT ASSOCIATE 15 S MINUTES EMERGENCY 62904 YAYA PAZ DEPT 7 7 PHYSICIAN U VISIT S, [facility] HIGH SEVERITY& THREAT [facility] SHIRA - 7 7 [facility] OUTPATIEN INC T EMERGENCY 54412 SHIRA 7 7 [facility] DEPARTMEN INC T VISIT HIGH/URGE NT SEVERITY OFFICE 20113 FAMILY YAJAIRA OUTPATIEN 7 7 CARE T VISIT ASSOCIATE 15 S MINUTES OFFICE 34592 FAMILY WARE OUTPATIEN 7 7 CARE T VISIT ASSOCIATE 15 S MINUTES OFFICE 42672 FAMILY YAJIARA OUTPATIEN 7 7 CARE T VISIT ASSOCIATE 15 S MINUTES OFFICE 71919 FAMILY ANASTASIA OUTPATIEN 6 6 CARE T VISIT ASSOCIATE 15 S MINUTES OFFICE 56902 FAMILY YAJAIRA OUTPATIEN 6 6 CARE T VISIT ASSOCIATE 15 S MINUTES EMERGENCY 26764 6 6 [facility] DEPART[facility] E T VISIT HOSPITALS HIGH/URGE NT SEVERITY [facility] - 6 6 [facility] OUTPATIEN E T HOSPITALS EMERGENCY 36339 [facility] 6 6 MEDICAL DEPARTMEN SERV T VISIT FOUNDATIO LOW/MODER N SEVERITY OFFICE 30271 [facility] OUTPATIEN 6 6 PHYSICIAN WENDY T NEW 10 S GROUP MINUTES OFFICE 55189 FAMILY ISAMAR OUTPATIEN 6 6 CARE T VISIT ASSOCIATE 15 S MINUTES OFFICE 88542 FAMILY ISAMAR OUTPATIEN 6 6 CARE TAR T VISIT ASSOCIATE 15 S MINUTES OFFICE 33689 FAMILY ISAMAR OUTPATIEN 6 6 CARE TAR T VISIT ASSOCIATE 15 S MINUTES OFFICE 34717 FAMILY CROWDY OUTPATIEN 6 6 CARE CRI T VISIT ASSOCIATE 15 S MINUTES OFFICE 16484 FAMILY MULBERRY OUTPATIEN 6 6 CARE NEW T VISIT ASSOCIATE 15 S MINUTES OFFICE 61718 FAMILY ISMAAR OUTPATIEN 6 6 CARE TAR T VISIT ASSOCIATE 15 S MINUTES OFFICE 67202 FAMILY LISA OUTPATIEN 6 6 CARE PAUL T VISIT ASSOCIATE 15 S MINUTES OFFICE 51275 FAMILY ISAMAR OUTPATIEN 6 6 CARE TAR T VISIT ASSOCIATE 15 S MINUTES OFFICE 99198 FAMILY LISA OUTPATIEN 6 6 CARE PAUL T VISIT ASSOCIATE 15 S MINUTES OFFICE 99034 FAMILY LISA OUTPATIEN 6 6 CARE PAUL T VISIT ASSOCIATE 15 S MINUTES HOSPITAL [facility] - 6 6 Y [facility] T EMERGENCY 80039 UNIVERSIT 6 6 Y [facility] T VISIT MODERATE SEVERITY OFFICE 51866 FAMILY YAJAIRA OUTPATIEN 6 6 CARE R H T VISIT ASSOCIATE 15 S MINUTES OFFICE 09511 FAMILY ISAMAR OUTPATIEN 6 6 CARE TAR T VISIT ASSOCIATE 15 S MINUTES EMERGENCY 36272 YAYA SOTINGEAN 6 6 PHYSICIAN U [facility] T VISIT MODERATE SEVERITY OFFICE 74768 FAMILY LISA OUTPATIEN 6 6 CARE PAUL T VISIT ASSOCIATE 10 S MINUTES HOSPITAL SHIRA - 6 6 [facility] OUTPATIEN [facility] T HOSPITAL SHIRA - 6 6 [facility] OUTPATIEN [facility] T HOSPITAL SHIRA - 6 6 [facility] OUTPATIEN [facility] T HOSPITAL SHIRA - 6 6 [facility] OUTPATIEN [facility] T OFFICE 25373 FAMILY LISA OUTPATIEN 6 6 CARE PAUL T VISIT ASSOCIATE 15 S MINUTES HOSPITAL SHIRA - 6 6 [facility] OUTPATIEN [facility] T HOSPITAL SHIRA - 6 6 [facility] OUTPATIEN [facility] SHIRA - 6 6 [facility] OUTPATIEN [facility] SHIRA - 6 6 [facility]IEN [facility] OFFICE 53325 FAMILY LISA OUTPATIEN 6 6 CARE PAUL T VISIT ASSOCIATE 15 S MINUTES HOSPITAL SHIRA - 6 6 [facility] OUTPATIEN [facility] SHIRA - 6 6 [facility] OUTPATIEN [facility] T EMERGENCY 17410 SHIRA 6 6 [facility] T VISIT MODERATE SEVERITY EMERGENCY 09542 YAYA PAZ 6 6 PHYSICIAN Julita BROWNING [facility] S, [facility] T VISIT HIGH/URGE NT SEVERITY OFFICE 41727 FAMILY LISA OUTPATIEN 6 6 CARE PAUL T VISIT ASSOCIATE 15 S MINUTES EMERGENCY 94353 YAYA MARTINEZ 6 6 PHYSICIAN JR HANSEN [facility] S, [facility] T VISIT HIGH/URGE NT SEVERITY OFFICE 54557 FAMILY YAJAIRA OUTPATIEN 6 6 CARE R H T VISIT ASSOCIATE 15 S MINUTES OFFICE 07943 FAMILY CROWDY OUTPATIEN 6 6 CARE CRI T VISIT ASSOCIATE 15 S MINUTES OFFICE 90658 FAMILY CROWDY OUTPATIEN 6 6 CARE CRI T VISIT ASSOCIATE 15 S MINUTES OFFICE 71894 FAMILY YAJAIRA OUTPATIEN 6 6 CARE R H T VISIT ASSOCIATE 15 S MINUTES OFFICE 35152 FAMILY CROWDY OUTPATIEN 6 6 CARE CRI T VISIT ASSOCIATE 15 S MINUTES OFFICE 81164 FAMILY LISA OUTPATIEN 5 5 CARE PAUL T VISIT ASSOCIATE 15 S MINUTES OFFICE 85080 FAMILY CROWDY OUTPATIEN 5 5 CARE CRI T VISIT ASSOCIATE 15 S MINUTES OFFICE 51227 FAMILY YAJAIRA OUTPATIEN 5 5 CARE R H T VISIT ASSOCIATE 15 S MINUTES OFFICE 85083 FAMILY CROWDY OUTPATIEN 5 5 CARE CRI T VISIT ASSOCIATE 15 S MINUTES OFFICE 73627 FAMILY CROWDY OUTPATIEN 5 5 CARE CRI T VISIT ASSOCIATE 15 S MINUTES OFFICE 44663 [facility] PETTEY OUTPATIEN 5 5 PHYSICIAN JAM T VISIT S GROUP 15 MINUTES EMERGENCY 56167 YAYA DE LA VEGA 5 5 PHYSICIAN SONU DEPARTMEN S, PLLC T VISIT MODERATE SEVERITY [facility]OSPITAL [facility] - 5 5 [facility] 64519 [facility] PETTEY OUTPATIEN 5 5 PHYSICIAN JAM T NEW 20 S GROUP MINUTES OFFICE 40066 FAMILY LISA OUTPATIEN 5 5 CARE PAUL T VISIT ASSOCIATE 25 S MINUTES OFFICE 62181 FAMILY YAJAIRA OUTPATIEN 5 5 CARE R H T VISIT ASSOCIATE 15 S MINUTES OFFICE 95026 [place] MICHOACAN[facility] OUTPATIEN 5 5 MEDICAL ALLEN T VISIT SERV 25 FOUNDATIO MINUTES N OFFICE 39178 UNIVERSIT OUTPATIEN 5 5 Y T VISIT HOSPITAL 10 MINUTES HOSPITAL UNIVERSIT - 5 5 Y OUTPATIEN [facility] T OFFICE 70644 FAMILY YAJAIRA OUTPATIEN 5 5 CARE R H T VISIT ASSOCIATE 15 S MINUTES OFFICE 78249 FAMILY CROWDY OUTPATIEN 5 5 CARE CRI T VISIT ASSOCIATE 15 S MINUTES OFFICE 94997 FAMILY LISA J OUTPATIEN 5 5 CARE G T VISIT ASSOCIATE 15 S MINUTES HOSPITAL SHIRA - 5 5 [facility] OUTPATIEN INC T EMERGENCY 76487 SHIRA DE LA VEGA 5 5 [facility] T VISIT P LOW/MODER SEVERITY EMERGENCY 58823 SHIRA 5 5 [facility] INC T VISIT MODERATE SEVERITY OFFICE 49925 FAMILY MULBERRY OUTPATIEN 4 4 CARE NEW T VISIT ASSOCIATE 15 S MINUTES OFFICE 80286 FAMILY YAJAIRA OUTPATIEN 4 4 CARE R H T VISIT ASSOCIATE 15 S MINUTES OFFICE 67291 FAMILY MULBERRY OUTPATIEN 4 4 CARE NEW T VISIT ASSOCIATE 15 S MINUTES OFFICE 41505 FAMILY OUTPATIEN 4 4 CARE T VISIT ASSOCIATE 15 S MINUTES OFFICE 34729 FAMILY YAJAIRA OUTPATIEN 4 4 CARE R H T VISIT ASSOCIATE 15 S MINUTES OFFICE 62965 LISA J OUTPATIEN 4 4 G T VISIT 15 MINUTES OFFICE 81348 MULBERRY MULBERRY OUTPATIEN 4 4 NEW NEW T VISIT 15 MINUTES OFFICE 10921 CINTRON CINTRON OUTPATIEN 4 4 ERIC ERIC T VISIT 15 MINUTES OFFICE 98892 MULBERRY MULBERRY OUTPATIEN 4 4 NEW NEW T VISIT 15 MINUTES OFFICE 19721 LISA GONZALEZ J OUTPATIEN 4 4 G G T VISIT 15 MINUTES HOSPITAL SHIRA - 4 4 [facility] OUTPATIEN INC T OFFICE 43915 FAMILY OUTPATIEN 3 3 CARE T VISIT ASSOCIATE 15 S MINUTES OFFICE 91150 ANASTASIA MULBERRY OUTPATIEN 3 3 NEW NEW T VISIT 15 MINUTES OFFICE 21347 FAMILY GONZALEZ OUTPATIEN 3 3 CARE PAUL T VISIT ASSOCIATE 15 S MINUTES OFFICE 35657 MATEO ANNY OUTPATIEN 3 3 MEDICAL EDW T VISIT SERV 25 FOUNDATIO MINUTES N OFFICE 93441 YAJAIRA YAJAIRA OUTPATIEN 3 3 R H R H T VISIT 15 MINUTES OFFICE 54212 ABDULAZIZ CINTRON OUTPATIEN 3 3 ERIC ERIC T VISIT 15 MINUTES HOSPITAL [facility]ERS[facility] - 3 3 [facility] T OFFICE 96335 KMSF CINTRON OUTPATIEN 3 3 NURSE ERIC T VISIT PRACTITIO 15 NER GR MINUTES OFFICE 88047 LISA Gordon OUTPATIEN 3 3 G G T VISIT 10 MINUTES HOSPITAL SHIRA - 3 3 [facility] OUTPATIEN [facility] T OFFICE 15666 LISA Gordon OUTPATIEN 3 3 G G T VISIT 15 MINUTES HOSPITAL SHIRA - 3 3 [facility] OUTPATIEN INC T OFFICE 81027 ABDULAZIZ ESTRADAON OUTPATIEN 3 3 ERIC ERIC T VISIT 15 MINUTES OFFICE 04222 MULMARSHA MULBERRY OUTPATIEN 3 3 NEW NEW T VISIT 15 MINUTES OFFICE 53976 SHIRA SILVA OUTPATIEN 2 2 [facility] T VISIT C[facility] CENTER 10 MINUTES HOSPITAL UNIVERSIT - 2 2 [facility] SHIRA - 2 2 [facility] OUTPATIEN INC T EMERGENCY 60136 MATEO [place] 2 2 MEDICAL NEW DEPARTMEN SERV T VISIT FOUNDATIO MODERATE SEVERITY EMERGENCY 00680 UNIVERSIT DEPT 2 2 Y VISIT HOSPITAL HIGH SEVERITY& THREAT [facility] UNIVERSIT - 2 2 [facility] SHIRA - 2 2 [facility] OUTPATIEN INC T OFFICE 11422 ABDULAZIZ CINTRON OUTPATIEN 2 2 ERIC ERIC T VISIT 15 MINUTES OFFICE 70491 [facility] CON[facility]ULT[facility] 2 2 LUCIAN LUCIAN ION NEW/ESTAB PATIENT 40 MIN HOSPITAL UNIVERSIT - 2 2 Y [facility] UNIVERSIT - 2 2 Y [facility] T OFFICE 08524 CAM LEVY OUTPATIEN 2 2 SRI SRI T VISIT 25 MINUTES OFFICE 96793 FAMILY OUTPATIEN 2 2 CARE T VISIT ASSOCIATE 15 S MINUTES OFFICE 82797 ABDULAZIZ CINTRON OUTPATIEN 2 2 ERIC ERIC T VISIT 15 MINUTES OFFICE 74058 WARE WARE OUTPATIEN 2 2 KATIUSKA KATIUSKA T VISIT 15 MINUTES OFFICE 15381 LISA Gordon OUTPATIEN 2 2 T VISIT 15 MINUTES OFFICE 66645 LISA Gordon OUTPATIEN 2 2 T VISIT 15 MINUTES HOSPITAL SHIRA - 2 2 [facility] OUTPATIEN INC T OFFICE 75396 WARE WARE OUTPATIEN 2 2 KATIUSKA KATIUSKA T VISIT 15 MINUTES HOSPITAL SHIRA - 2 2 [facility] OUTPATIEN INC T EMERGENCY 90684 SHIRA 2 2 [facility] DEPARTMEN INC T VISIT MODERATE SEVERITY OFFICE 40304 FAMILY WARE OUTPATIEN 2 2 CARE KATIUSKA T VISIT ASSOCIATE 15 S MINUTES HOSPITAL SHIRA - 1 1 [facility] OUTPATIEN INC T OFFICE 15649 ABDULAZIZ CINTRON OUTPATIEN 1 1 ERIC ERIC T VISIT 15 MINUTES OFFICE 34031 MARINE HAWTHORNE OUTPATIEN 1 1 YESI YESI T NEW 30 MINUTES OFFICE 39813 FAMILY MULBERRY OUTPATIEN 1 1 CARE NEW T VISIT ASSOCIATE 15 S MINUTES OFFICE 63786 FAMILY MULBERRY OUTPATIEN 1 1 CARE NEW T VISIT ASSOCIATE 15 S MINUTES OFFICE 99563 FAMILY MULBERRY OUTPATIEN 1 1 CARE NEW T VISIT ASSOCIATE 15 S MINUTES HOSPITAL SHIRA - 1 1 [facility] OUTPATIEN INC T OFFICE 06052 FAMILY YAJAIRA OUTPATIEN 1 1 CARE R H T VISIT ASSOCIATE 15 S MINUTES OFFICE 43037 FAMILY YAJAIRA OUTPATIEN 1 1 CARE R H T VISIT ASSOCIATE 15 S MINUTES OFFICE 80012 FAMILY LISA J OUTPATIEN 1 1 CARE T VISIT ASSOCIATE 15 S MINUTES OFFICE 74644 JOHN CINTRON OUTPATIEN 1 1 NURSE ERIC T VISIT PRACTITIO 15 NER GR MINUTES OFFICE 71299 FAMILY MULBERRY OUTPATIEN 1 1 CARE NEW T VISIT ASSOCIATE 25 S MINUTES OFFICE 80468 MATEO RÍOS OUTPATIEN 1 1 MEDICAL ALLEN T VISIT SERV 15 FOUNDATIO MINUTES HOSPITAL SHIRA - 0 0 [facility] OUTPATIEN INC T OFFICE 81165 FAMILY LISA J OUTPATIEN 0 0 CARE T VISIT ASSOCIATE 15 S MINUTES OFFICE 16327 FAMILY YAJAIRA OUTPATIEN 0 0 CARE R H T VISIT ASSOCIATE 15 S MINUTES OFFICE 24590 FAMILY MULBERRY OUTPATIEN 0 0 CARE NEW T VISIT ASSOCIATE 15 S MINUTES HOSPITAL UNIVERSIT - 0 0 Y INPATIENT HOSPITAL OFFICE 35696 FAMILY LISA Gordon OUTPATIEN 0 0 CARE T VISIT ASSOCIATE 15 S MINUTES OFFICE 52999 MATEO RÍOS OUTPATIEN 0 0 MEDICAL ALLEN T VISIT SERV 10 FOUNDATIO MINUTES OFFICE 35979 FAMILY OCONNOR OUTPATIEN 0 0 CARE NEW T VISIT ASSOCIATE 15 S MINUTES HOSPITAL UNIVERSIT - 0 0 Y [facility] T OFFICE 17235 JOHN CINTRON, OUTPATIEN 0 0 NURSE JOSÉ Stephens T VISIT PRACTITIO 15 NER GROUP MINUTES OFFICE 15426 Heidi REDD OUTPATIEN 0 0 CARE G T VISIT ASSOCIATE 15 S MINUTES OFFICE 92901 FAMILY BRENNANEET, OUTPATIEN 0 0 CARE R NII T VISIT ASSOCIATE 15 S MINUTES OFFICE 64063 [facility], [facility] 0 0 NURSE JOSÉ Stephens T VISIT PRACTITIO 15 NER GROUP MINUTES OFFICE 51229 FAMILY BRENNANEET, OUTPATIEN 0 0 CARE R NII T VISIT ASSOCIATE 15 S MINUTES OFFICE 47087 FAMILY OCONNOR, OUTPATIEN 0 0 CARE ALEKSANDR T T VISIT ASSOCIATE 15 S MINUTES OFFICE 88287 Heidi REDD OUTPATIEN 0 0 CARE G T VISIT ASSOCIATE 15 S MINUTES OFFICE 36089 MATEO ANNY, OUTPATIEN 0 0 MEDICAL EDWARD T VISIT SERV 15 FOUNDATIO MINUTES OFFICE 93734 FAMILY BRENNANEET, OUTPATIEN 0 0 CARE R NII T VISIT ASSOCIATE 15 S MINUTES HOSPITAL UNIVERSIT - 0 0 Y [facility] T OFFICE 71431 FAMILY BRENNANEET, OUTPATIEN 9 9 CARE R NII T VISIT ASSOCIATE 15 S MINUTES HOSPITAL UNIVERSIT - 9 9 Y [facility] - 9 9 [facility] OUTPATIEN [facility] T [facility] - 9 9 [facility]IEN INC T OFFICE [id number] FAMILY OCONNOR, OUTPATIEN 9 9 CARE ALEKSANDR T T VISIT ASSOCIATE 15 S MINUTES [facility]OSPITAL [facility] - 9 9 [facility]IEN INC T OFFICE [id number] FAMILY GATES OUTPATIEN 9 9 CARE R NII T VISIT ASSOCIATE 15 S MINUTES OFFICE 57295 JOHN CINTRON OUTPATIEN 9 9 NURSE JOSÉ Stephens T VISIT PRACTITIO 10 NER GROUP MINUTES OFFICE 65949 FAMILY OCONNOR OUTPATIEN 9 9 CARE ALEKSANDR T T VISIT ASSOCIATE 15 S MINUTES OFFICE 07307 [facility] OUTPATIEN 9 9 [facility] T VISIT INC 10 MINUTES HOSPITAL [facility] - 9 9 [facility] OUTPATIEN INC T [facility], 9 9 [facility] 9 9 [facility] - 9 9 [facility] OFF[facility] [id number] MATEO LEVY OUTPATIEN 9 9 MEDICAL BIMAL T VISIT SERV 15 FOUNDATIO MINUTES [facility] 73554 Heidi GONZALEZ OUTPATIEN 9 9 CARE G T VISIT ASSOCIATE 15 S MINUTES OFFICE 67304 FAMILY GATES OUTPATIEN 9 9 CARE R NII T VISIT ASSOCIATE 15 S MINUTES OFFICE 37089 MATEO MCCORMICK OUTPATIEN 9 9 MEDICAL EDWARD T VISIT SERV 15 FOUNDATIO [facility] SHIRA - 9 9 [facility] OUTPATIEN INC T OFFICE 15151 [place] KACI, CONSULTBELEN 9 9 MEDICAL JULIETTE T ION SERV NEW/ESTAB FOUNDATIO PATIENT 40 MIN OFFICE 30297 FAMILY YAJAIRA, OUTPATIEN 9 9 CARE R NII T VISIT ASSOCIATE 15 S MINUTES OFFICE 90433 FAMILY MULBERRY, OUTPATIEN 9 9 CARE ALEKSANDR T T VISIT ASSOCIATE 15 S MINUTES OFFICE 04502 FAMILY YAJAIRA, OUTPATIEN 9 9 CARE R NII T VISIT ASSOCIATE 15 S MINUTES HOSPITAL [facility]RA - 9 9 [facility] OUTPATIEN INC T OFFICE 08625 FAMILY MULBERRY, OUTPATIEN 9 9 CARE ALEKSANDR T T VISIT ASSOCIATE 15 S MINUTES OFFICE 70804 FAMILY MULBERRY, OUTPATIEN 9 9 CARE ALEKSANDR T T VISIT ASSOCIATE 15 S MINUTES OFFICE 90869 KMSF ABDULAZIZ, OUTPATIEN 9 9 NURSE JOSÉ Stephens T VISIT PRACTITIO 10 NER GROUP [facility] UN[facility]ERSIT - 9 [facility] - 9 9 [facility] OUTPATIEN INC T OFFICE 56699 FAMILY YAJAIRA, OUTPATIEN 9 9 CARE R NII T VISIT ASSOCIATE 15 S MINUTES OFFICE 96301 FAMILY YAJAIRA, OUTPATIEN 9 9 CARE R NII T VISIT ASSOCIATE 15 S MINUTES OFFICE 74112 FAMILY YAJAIRA, OUTPATIEN 9 9 CARE R NII T VISIT ASSOCIATE 15 S MINUTES HOSPITAL [facility] - 9 9 [facility] OUTPATIEN INC T OFFICE 73268 FAMILY YAJAIRA, OUTPATIEN 9 9 CARE R NII T VISIT ASSOCIATE 15 S MINUTES OFFICE 93256 MATEO CASTROKAYLEEN OUTPATIEN 9 9 MEDICAL EDWARD T VISIT SERV 15 FOUNDATIO MINUTES OFFICE 22881 FAMILY GATES OUTPATIEN 9 9 CARE R NII T VISIT ASSOCIATE 15 S MINUTES OFFICE 84028 FAMILY GATES OUTPATIEN 8 8 CARE R NII T VISIT ASSOCIATE 10 S MINUTES OFFICE 65842 MATEO RÍOS OUTPATIEN 8 8 MEDICAL ELENA J T VISIT SERV 10 FOUNDATIO MINUTES OFFICE 47474 FAMILY GATES, OUTPATIEN 8 8 CARE R NII T VISIT ASSOCIATE 15 S MINUTES OFFICE 12075 MATEO ANNY OUTPATIEN 8 8 MEDICAL EDWARD T VISIT SERV 15 FOUNDATIO MINUTES HOSPITAL UNIVERSIT - 8 8 Y [facility] T OFFICE 46529 MATEO MICHOACANO OUTPATIPATRICA 8 8 MEDICAL ELENA J T VISIT SERV 15 FOUNDATIO MINUTES HOSPITAL UNIVERSIT - 8 8 Y [facility] SHIRA - 8 8 MEM [facility] T OFFICE 73361 BRI SAEEDPATIEN 8 8 CARE R NII T VISIT ASSOCIATE 15 S MINUTES OFFICE 48827 FAMILY OCONNOR, OUTPATIEN 8 8 CARE ALEKSANDR T T VISIT ASSOCIATE 15 S MINUTES OFFICE 43438 FAMILY OCONNOR, OUTPATIEN 8 8 CARE ALEKSANDR T T VISIT ASSOCIATE 15 S MINUTES OFFICE 32182 Heidi GONZALEZ OUTPATIEN 8 8 CARE G T VISIT ASSOCIATE 15 S MINUTES OFFICE 80497 FAMILY GATES, OUTPATIEN 8 8 CARE R NII T VISIT ASSOCIATE 15 S MINUTES OFFICE 79112 MATEO ANNY OUTPATIEN 8 8 MEDICAL EDWARD T VISIT SERV 15 FOUNDATIO MINUTES
--- OUTSIDE RECORDS SUMMARY | 2017-06-22 18:11 | External Medical Summary Rpt | CCD ---
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 PER IU NONINVASI 11632 LISA Gordon VE 4 G G EAR/PULSE OXIMETRY SINGLE DETER BLOOD 05507 LISA Gordon COUNT 4 G G COMPLETE AUTO&AUTO DIFRNTL WBC COLLECTIO 52773 LISA Gordon N 4 G G CAPILLARY BLOOD SPECIMEN RADIOLOGI 23724 SHIRA Desai EXAM 4 [facility] CHEST 2 INC INC VIEWS FRONTAL&L ATERAL ADMN SET A7003 YOUR YOUR SM VOL 4 PHARMACY PHARMACY [facility] PNEUMAT NEBULIZR DISPBL NEBULIZER E0570 [facility] WITH 4 HOME HOME COMPRESSO MEDICAL MEDICAL R EQUIPME EQUIPME NONINVASI 94337 FAMILY FAMILY VE 3 CARE CARE EAR/PULSE ASSOCIATE ASSOCIATE OXIMETRY S S SINGLE DETER BLOOD 88851 MULBERRY MULBERRY COUNT 3 NEW NEW COMPLETE AUTO&AUTO DIFRNTL WBC BLOOD 73855 FAMILY LISA COUNT 3 CARE PAUL COMPLETE ASSOCIATE AUTO&AUTO S DIFRNTL WBC COLLECTIO 53553 FAMILY GONZALEZ N 3 CARE PAUL CAPILLARY [...] NON-INS RX INFUS CATH PER WK RADEX 23308 [facility] 3 Y Y [facility] MINIMUM 3 VIEWS RADEX 55793 SHIRA SILVA SPINE 3 [facility] LUMBOSACR INC INC AL MINIMUM 4 VIEWS RADEX 63904 SYL SYL SPINE 3 MARA MARA LUMBOSACR AL 2/3 VIEWS URNLS DIP 26458 LISA Gordon 3 G G STICK/TAB LET RGNT NON-AUTO W/O MICRSCP SUPPLIES A4221 BIORX BIORX FOR MAINT 3 NON-INS RX INFUS CATH PER WK INJECTION J7185 BIORX BIORX FACTOR 3 VIII PER IU ORTHOTIC 10670 SHIRA SILVA MGMT&DAREN 3 [facility] NJ UXTR INC INC LXTR&/TRN K EA 15 ELB ORTH L3760 ADVANCED ADVANCED W/ADJ 3 TECHNOLOG TECHNOLOG LOCK JNT IES INC IES INC PRFAB W/FIT&ADJ TYPE INJ AHF/ J7186 BIORX BIORX VWF CMPLX 3 PER FACTOR VIII IU SUPPLIES A4221 BIORX BIORX FOR MAINT 3 NON-INS RX INFUS CATH PER WK BLOOD 51836 MULBERRY MULBERRY COUNT 3 NEW NEW COMPLETE AUTO&AUTO DIFRNTL WBC SUPPLIES A4221 BIORX BIORX FOR MAINT 2 NON-INS RX INFUS CATH PER WK INJ AHF/ J7186 BIORX BIORX VWF CMPLX 2 PER FACTOR VIII IU INJ AHF/ J7186 BIORX BIORX VWF CMPLX 2 PER FACTOR VIII IU RADEX 53110 [place] CHEPE ELBOW 2 MEDICAL AMBROSIO COMPLETE SERV MINIMUM 3 FOUNDATIO VIEWS N IIV3 27921 SHIRA SILVA VACCINE 2 [facility] VIRUS 0.5 ML DOSAGE IM USE APPL 83746 SHIRA SILVA MODALITY 2 [facility] 1/> AREAS INC INC ULTRASOUN D EA 15 MIN MANUAL 03603 SHIRA SILVA THERAPY 2 [facility] TQS 1/> INC INC REGIONS EACH 15 MINUTES E-STIM G0283 SHIRA SILVA 1/> AREAS 2 [facility] OTH THAN INC INC WND CARE PART TX PLAN APPLICATI 53825 SHIRA SILVA ON 2 [facility] MODALITY INC INC 1/> AREAS HOT/COLD PACKS INJ AHF/ J7186 BIORX BIORX VWF CMPLX 2 PER FACTOR VIII IU APPL 34491 SHIRA SILVA MODALITY 2 [facility] 1/> AREAS INC INC ULTRASOUN D EA 15 MIN MANUAL 10299 SHIRA SILVA THERAPY 2 [facility] TQS 1/> INC INC REGIONS EACH 15 MINUTES E-STIM G0283 SHIRA SILVA 1/> AREAS 2 [facility]OS[facility] OTH THAN INC INC WND CARE PART TX PLAN APPLICATI 96717 SHIRA SILVA ON 2 [facility] MODALITY INC INC 1/> AREAS HOT/COLD PACKS INJ AHF/ J7186 BIORX BIORX VWF CMPLX 2 PER FACTOR VIII IU APPL 40442 SHIRA SILVA MODALITY 2 [facility] 1/> AREAS INC INC ULTRASOUN D EA 15 MIN MANUAL 12196 SHIRA SILVA THERAPY 2 [facility] TQS 1/> INC INC REGIONS EACH 15 MINUTES E-STIM G0283 SHIRA SILVA 1/> AREAS 2 [facility] OTH THAN INC INC WND CARE PART TX PLAN APPLICATI 42940 SHIRA SILVA ON 2 [facility] MODALITY INC INC 1/> AREAS HOT/COLD PACKS E-STIM G0283 SHIRA SILVA 1/> AREAS 2 [facility] OTH THAN INC INC WND CARE PART TX PLAN APPL 50062 SHIRA SILVA MODALITY 2 [facility] 1/> AREAS INC INC ULTRASOUN D EA 15 MIN MANUAL 84943 SHIRA SILVA THERAPY 2 [facility] TQS 1/> INC INC REGIONS EACH 15 MINUTES APPLICATI 57570 SHIRA SILVA ON 2 [facility] MODALITY INC INC 1/> AREAS HOT/COLD PACKS APPLICATI 23220 SHIRA SILVA ON 2 [facility] MODALITY INC INC 1/> AREAS HOT/COLD PACKS APPL 88810 SHIRA SILVA MODALITY 2 [facility] 1/> AREAS INC INC ULTRASOUN D EA 15 MIN MANUAL 82483 SHIRA SILVA THERAPY 2 [facility] TQS 1/> INC INC REGIONS EACH 15 MINUTES E-STIM G0283 SHIRA SILVA 1/> AREAS 2 [facility] OTH THAN INC INC WND CARE PART TX PLAN E-STIM G0283 SHIRA SILVA 1/> AREAS 2 [facility] OTH THAN INC INC WND CARE PART TX PLAN APPL 41515 SHIRA SILVA MODALITY 2 [facility] 1/> AREAS INC INC ULTRASOUN D EA 15 MIN MANUAL 12681 SHIRA SILVA THERAPY 2 [facility] TQS 1/> INC INC REGIONS EACH 15 MINUTES APPLICATI 79021 SHIRA SILVA ON 2 [facility] MODALITY INC INC 1/> AREAS HOT/COLD PACKS THERAPEUT 42601 [place]OCKY SILVA IC PX 1/> 2 [facility] AREAS INC INC EACH 15 MIN EXERCISES INJ AHF/ J7186 BIORX BIORX VWF CMPLX 2 PER FACTOR VIII IU THROMBOPL 31732 [facility] 2 Y Y TIME [facility] HOSPITAL PARTIAL PLASMA/WH OLE BLOOD SEDIMENTA 16401 UNIVERSIT UNIVERSIT TION RATE 2 Y Y RBC HOSPITAL HOSPITAL AUTOMATED PROTHROMB 27071 [facility] IN TIME 2 Y Y HOSPITAL HOSPITAL THER 98129 [facility] PROPH/DX 2 Y Y NJX IV HOSPITAL HOSPITAL PUSH SINGLE/1S T SBST/DRUG BLOOD 12747 [facility] COUNT 2 Y Y COMPLETE [facility] AUTO&AUTO DIFRNTL WBC THERAPEUT 14170 [facility] IC 2 Y Y INJECTION [facility] IV PUSH EACH NEW DRUG INJECTION J2270 [facility] MORPHINE 2 Y Y SULFATE [facility] UP TO 10 MG C-REACTIV 92344 [facility] E PROTEIN 2 Y Y HOSPITAL [facility] COLLECTIO 01261 [facility] N VENOUS 2 Y Y BLOOD [facility] VENIPUNCT URE INJECTION J2405 [facility] MG RADEX 02047 [place] MERH[facility] ELBOW 2 MEDICAL GAR COMPLETE SERV MINIMUM 3 FOUNDATIO VIEWS N APPLICATI 05669 SHIRA SILVA ON 2 [facility] MODALITY INC INC 1/> AREAS HOT/COLD PACKS MANUAL 32270 SHIRA SILVA THERAPY 2 [facility] TQS 1/> INC INC REGIONS EACH 15 MINUTES PHYSICAL 21791 SHIRA SILVA THERAPY 2 [facility] EVALUATIO INC INC N INJECTION J2710 [facility] 2 Y Y NEOSTIGMI [facility] NE METHYLSUL FATE UP TO 0.5 MG INJECTION J3010 [facility] FENTANYL 2 Y Y CITRATE [facility] 0.1 MG UNCLASSIF J3490 [facility] IED DRUGS 2 Y Y HOSPITAL HOSPITAL THROMBOPL 33392 [facility] ASTIN 2 Y Y TIME [facility] PARTIAL PLASMA/WH OLE BLOOD RINGERS J7120 [facility] LACTATE 2 Y Y INFUSION [facility] UP TO 1000 CC INJECTION J1170 [facility] 2 Y Y HYDROMORP [facility] KADY UP TO 4 MG PROTHROMB 18087 [facility] IN TIME 2 Y Y HOSPITAL HOSPITAL INJECTION J2250 [facility] 2 Y Y MIDAZOLAM [facility] HCL PER 1 MG INJECTION J2270 [facility] MORPHINE 2 Y Y SULFATE [facility] UP TO 10 MG BLOOD 31060 [facility] COUNT 2 Y Y COMPLETE [facility] AUTOMATED ANESTHESI 75188 [place] REILLY A ELBOW 2 LTH [place] JOINT ANESTHESI DIAGNOSTI A PSC C ARTHROSCO PIC INJECTION J2405 [facility] 2 Y [facility] PER 1 MG ARTHROSCO 60123 [facility] PY ELBOW 2 Y Y SURGICAL [facility] [place] [address] [facility] SURG 2 Y Y PATHOLOGY [facility] GROSS&SONU ROSCOPIC EXAM PARTIAL 16133 CAM LEVY EXCISION 2 SRI SRI BONE OLECRANON PROCESS ARTHRT 32253 CAM LEVY ELBOW 2 SRI SRI CAPSULAR EXCISION CAPSULAR RLS SPX ARTHROSCO 65442 CAM LEVY PY ELBOW 2 SRI SRI SURGICAL SYNOVECTO MY COMPLETE INJ AHF/ J7186 BIORX BIORX VWF CMPLX 2 PER FACTOR VIII IU INJ AHF/ J7186 BIORX BIORX VWF CMPLX 2 PER FACTOR VIII IU FACTOR J7190 BIORX BIORX VIII 2 ANTIHEMOP HILIC FACTOR HUMAN PER IU RADEX 31594 [place] CHE[place] ELBOW 2 MEDICAL AMBROSIO COMPLETE SERV MINIMUM 3 FOUNDATIO VIEWS N FACTOR J7190 BIORX BIORX VIII 2 ANTIHEMOP HILIC FACTOR HUMAN PER IU INJ AHF/ J7186 BIORX BIORX VWF CMPLX 2 PER FACTOR VIII IU BLOOD 85322 [facility] COUNT 2 [place] COMPLETE AUTO&AUTO DIFRNTL WBC INJ AHF/ J7186 BIORX BIORX VWF CMPLX 2 PER FACTOR VIII IU PROTHROMB 71310 LISA Gordon IN TIME 2 RADIOLOGI 00118 SHIRA SILVA C EXAM 2 [facility] CHEST 2 INC INC VIEWS FRONTAL&L ATERAL BLOOD 04-24-201 96994 LISA Gordon COUNT 2 COMPLETE AUTO&AUTO DIFRNTL WBC TRANSFERA 85596 LISA Gordon SE 2 ALANINE AMINO ALT SGPT TRANSFERA 00581 LISA SIMS SE 2 ASPARTATE AMINO AST [...] ANTIHEMOP HILIC FACTOR HUMAN PER IU BLOOD 91332 WARE WARE COUNT 2 [place] COMPLETE AUTO&AUTO DIFRNTL WBC CULTURE 39189 COMBINED COMBINED BACTERIAL 2 PHYSICIAN PHYSICIAN S LA S LA QUANTTATI VE COLONY COUNT URINE URNLS DIP 29860 WARE WARE 2 [place] STICK/TAB LET RGNT NON-AUTO W/O MICRSCP THROMBOPL 05786 SHIRA SILVA ASTIN 2 [facility] TIME INC INC PARTIAL PLASMA/WH OLE BLOOD COMPREHEN 05733 SHIRA SILVA SIVE 2 [facility] METABOLIC INC INC PANEL LOCM Q9967 SHIRA SILVA 300-399 2 [facility] MG/ML INC INC IODINE CONCENTRA TION PER ML BLOOD 52129 SHIRA SILVA COUNT 2 [facility] COMPLETE INC INC AUTO&AUTO DIFRNTL WBC URNLS DIP 36873 SHIRA SILVA 2 [facility] STICK/TAB INC [place] [address] SYL SYL ABDOMEN & 2 MARA MARA PELVIS W/CONTRAS T MATERIAL PROTHROMB 19935 SHIRA RINALDI IN TIME 2 [facility] JR THO INC FACTOR J7190 BIORX BIORX VIII 2 ANTIHEMOP HILIC FACTOR HUMAN PER IU BLOOD 06474 FAMILY FAMILY COUNT 2 CARE CARE COMPLETE ASSOCIATE ASSOCIATE AUTO&AUTO S S DIFRNTL WBC FACTOR J7190 BIORX BIORX VIII 1 ANTIHEMOP HILIC FACTOR HUMAN PER IU ANK FT L1906 ADVANCED ADVANCED ORTHOS 1 TECHNOLOG TECHNOLOG MX-LIG IES INC IES INC ANK SUPT PREFB OFF SHELF ORTHOTIC 07041 SHIRA SILVA MGMT&DAREN 1 [facility] MN UXTR INC INC LXTR&/TRN K EA 15 BLOOD 06622 FAMILY FAMILY COUNT 1 CARE CARE COMPLETE ASSOCIATE ASSOCIATE AUTO&AUTO S S DIFRNTL WBC BLOOD 31479 FAMILY FAMILY COUNT 1 CARE CARE COMPLETE ASSOCIATE ASSOCIATE AUTO&AUTO S S DIFRNTL WBC IAADIADOO 04181 FAMILY MULBERRY 1 CARE NEW STREPTOCO ASSOCIATE CCUS S GROUP A BLOOD 36114 SHIRA SILVA OCCULT 1 [facility] PEROXIDAS INC INC E ACTV QUAL FECES 1-3 SPEC IAADIADOO 32143 FAMILY MULBERRY 1 CARE NEW STREPTOCO ASSOCIATE CCUS S GROUP A BLOOD 16271 FAMILY FAMILY COUNT 1 CARE CARE COMPLETE ASSOCIATE ASSOCIATE AUTO&[place] [address] SHIRA SILVA ROTAVIRUS 1 [place] [address] SHIRA SILVA CLOSTRIDI 1 [facility] INC INC DIFFICILE TOXIN IAADIADOO 36256 FAMILY YAJAIRA 1 CARE R H STREPTOCO ASSOCIATE CCUS S GROUP A IAADIADOO 26140 LISA J 1 CARE STREPTOCO ASSOCIATE CCUS S GROUP A RADIOLOGI 48476 SHIRA SILVA C EXAM 0 [facility] CHEST 2 INC INC VIEWS FRONTAL&L ATERAL BLOOD 04148 FAMILY MULBERRY COUNT 0 CARE NEW COMPLETE ASSOCIATE AUTO&AUTO S DIFRNTL WBC IAADIADOO 36289 FAMILY MULBERRY 0 CARE NEW STREPTOCO ASSOCIATE CCUS S GROUP A ARTHROSCO 96542 [place] MICHOACAN[place] PY ANKLE 0 MEDICAL ALLEN SURGICAL SERV DEBRIDEME FOUNDATIO NT LIMITED ANESTHESI 22670 MATEO YADIRA A 0 MEDICAL JOSH ARTHROSCO SERVICES PIC PROCEDURE ANKLE & FOOT OTH LOCAL 8087 [facility] 0 Y Y EXCISION/ [facility] HOSPITAL DESTRUCTI ON LESION ANK JOINT IAADIADOO 46748 FAMILY LISA J 0 CARE STREPTOCO ASSOCIATE CCUS S GROUP A BLOOD 37968 FAMILY FAMILY COUNT 0 CARE CARE COMPLETE ASSOCIATE ASSOCIATE AUTO&AUTO S S DIFRNTL WBC RADEX 45063 MATEO MANAS ANGELIQUE ANKLE 0 MEDICAL COMPLETE SERV MINIMUM 3 FOUNDATIO VIEWS 25 22925 LAB SHANI LAB SHANI HYDROXY 0 AMERIC AMERIC INCLUDES HOLDING HOLDING FRACTIONS IF PERFORMED THERAPEUT 72029 [facility] IC PX 1/> 0 Y Y [facility] EACH 15 MIN EXERCISES PHYSICAL 13234 [facility] 9 [facility] AP[facility] 71850 SHIRA SILVA ON 9 [facility] MODALITY INC INC 1/> AREAS HOT/COLD PACKS APPL 06626 SHIRA SILVA MODALITY 9 [facility] 1/> AREAS INC INC ULTRASOUN D EA 15 MIN APPL 18027 SHIRA SILVA MODALITY 9 [facility] 1/> AREAS INC INC ELEC STIMJ UNATTENDE D THERAPEUT 99265 SHIRA SILVA IC PX /> 9 [facility] AREAS INC INC EACH 15 MIN EXERCISES RADEX 30271 MANINDERY SYL, ELBOW 9 MEDICAL ROLANDO COMPLETE IMAGING MINIMUM 3 ASSOCIATE VIEWS S APPL 95542 SHIRA SILVA MODALITY 9 [facility] 1/> AREAS INC INC ULTRASOUN D EA 15 MIN APPL 43906 SHIRA SILVA MODALITY 9 [facility] 1/> AREAS INC INC ELEC STIMJ UNATTENDE D THERAPEUT 90442 SHIRA SILVA IC PX 1/> 9 [facility] AREAS INC INC EACH 15 MIN EXERCISES APPLICATI 96164 SHIRA SILVA ON 9 [facility] MODALITY INC INC 1/> AREAS HOT/COLD PACKS THERAPEUT 66305 SHIRA SILVA IC PX 1/> 9 [facility] AREAS INC INC EACH 15 MIN EXERCISES APPLICATI 27987 SHIRA SILVA ON 9 [facility] MODALITY INC INC 1/> AREAS HOT/COLD PACKS APPL 47801 SHIRA SILVA MODALITY 9 [facility] 1/> AREAS INC INC ELEC STIMJ UNATTENDE D APPL 03413 SHIRA SILVA MODALITY 9 [facility] 1/> AREAS INC INC ULTRASOUN D EA 15 MIN APPL 76128 SHIRA SILVA MODALITY 9 [facility] 1/> AREAS INC INC ULTRASOUN D EA 15 MIN APPL 02138 SHIRA SILVA MODALITY 9 [facility] 1/> AREAS INC INC ELEC STIMJ UNATTENDE D PHYSICAL 77198 SHIRA SILVA THERAPY 9 [facility] EVALUATIO INC INC N BLOOD 86440 FAMILY ZEESHANBERRY, COUNT 9 CARE ALEKSANDR Walker COMPLETE ASSOCIATE AUTO&AUTO S DIFRNTL WBC APPL 99777 SHIRA SILVA MODALITY 9 [facility] 1/> AREAS INC INC IONTOPHOR ESIS EA 15 MIN APPLICATI 93185 SHIRA SILVA ON 9 [facility] MODALITY INC INC 1/> AREAS HOT/COLD PACKS BLOOD 65923 FAMILY YAJAIRA, COUNT 9 CARE Deneen BALES COMPLETE ASSOCIATE AUTO&AUTO S DIFRNTL WBC INJECTION J2997 [facility] 9 Y [facility] RECOMBINA NT 1 MG INITIAL 52417 [facility] OBSERVATI 9 Y Y ON HOSPITAL HOSPITAL CARE/DAY 30 MINUTES INJECTION J2270 [facility] MORPHINE 9 Y [facility] UP TO 10 MG UNLISTED 19571 [facility] PROCEDURE 9 Y Y HOSPITAL HOSPITAL ARTHROSCO PY ARTHROSCO 84675 [facility] PY ELBOW 9 Y Y SURGICAL [facility]OSPITAL HOSPITAL SYNOVECTO MY COMPLETE INJECTION J2405 [facility] 9 Y Y [facility] ON HCL PER 1 MG DECALCIFI 21983 [facility] CATION 9 Y [place] [address] [facility] SURG 9 Y Y PATHOLOGY HOSPITAL HOSPITAL GROSS&SONU ROSCOPIC EXAM INJECTION J3010 [facility] FENTANYL 9 Y Y CITRATE [facility] HOSPITAL 0.1 MG UNCLASSIF J3490 [facility] IED DRUGS 9 Y HANS [facility] RAD RESCJ 57010 MATEO CAM CAPSL 9 [facility] TISS&HTRT SERV PC BONE FOUNDATIO ELBW CONTRCT EXCISION 04487 MATEO LEVY RADIAL 9 MEDICAL [facility] SERV FOUNDATIO ANESTHESI 46302 Reid ZIEGLER 9 [facility] OPEN/SURG SERVICES ARTHRS RADICAL PROC ELBOW INJECTION J2175 [facility] 9 Y Y [facility] HCL PER 100 MG INJECTION J2795 [facility] 9 Y Y [facility] NE HYDROCHLO RIDE 1 MG INSJ PRPH 26910 [facility] CVC W/O 9 Y Y SUBQ [facility] HOSPITAL PORT/LANGUAGE PATHOLOGIST AGE 6 YR/> FACTOR 26040 [facility] INHIBITOR 9 Y Y TEST [facility] BLOOD 70516 [facility] COUNT 9 Y Y COMPLETE [facility] AUTO&AUTO DIFRNTL WBC RADIOLOGI 19480 [facility] C EXAM 9 Y Y CHEST 2 [facility] VIEWS FRONTAL&L ATERAL RADEX 51705 MATEO MATHIAS, ELBOW 2 9 MEDICAL HITESH N VIEWS SERV FOUNDATIO BLOOD 97674 FAMILY LISA, J COUNT 9 CARE G COMPLETE ASSOCIATE AUTO&AUTO S DIFRNTL WBC APPL 42526 SHIRA SILVA MODALITY 9 [facility] 1/> AREAS INC INC ULTRASOUN D EA 15 MIN THERAPEUT 44928 SHIRA SILVA IC PX 1/> 9 [facility] AREAS INC INC EACH 15 MIN EXERCISES APPL 39728 SHIRA SILVA MODALITY 9 [facility] 1/> AREAS INC INC IONTOPHOR ESIS EA 15 MIN PHYSICAL 61458 SHIRA SILVA THERAPY 9 [facility]OS[facility] EVALUATIO INC INC N APPL 69200 SHIRA SILVA MODALITY 9 [facility] 1/> AREAS INC INC IONTOPHOR ESIS EA 15 MIN THERAPEUT 09140 SHIRA SILVA IC PX 1/> 9 [facility] INC EACH 15 MIN EXERCISES MANUAL 36572 [facility] S[facility] THERAPY 9 [facility] TQS 1/> INC INC REGIONS EACH 15 MINUTES APPL 08432 SH[facility] SILVA MODALITY 9 [facility] 1/> AREAS INC INC ULTRASOUN D EA 15 MIN RADIOLOGI 67304 Giselle RILEY 9 MEDICAL SERENITY [facility] EXAMINATI SERV ON KNEE FOUNDATIO 1/2 VIEWS RADIOLOGI 82429 Giselle RILEY 9 MEDICAL SERENITY [place] EXAMINATI SERV ON KNEE 3 FOUNDATIO VIEWS MRI ANY 10874 ROLANDO C SYL, JT LOWER 9 SYL ROLANDO EXTREM W/O CONTRAST MATRL COLLECTIO 32372 FAMILY MULBERRY, N 9 CARE ALEKSANDR T CAPILLARY ASSOCIATE BLOOD S SPECIMEN BLOOD 06390 FAMILY MULBERRY, COUNT 9 CARE ALEKSANDR T COMPLETE ASSOCIATE AUTO&AUTO S DIFRNTL WBC RADIOLOGI 94095 Giselle LAM 9 MEDICAL ROLANDO EXAMINATI IMAGING ON KNEE 3 ASSOCIATE VIEWS S BLOOD 56251 FAMILY MULBERRY, COUNT 9 CARE ALEKSANDR T COMPLETE ASSOCIATE AUTO&AUTO S DIFRNTL WBC COLLECTIO 33690 FAMILY MULBERRY, N 9 CARE ALEKSANDR T CAPILLARY ASSOCIATE BLOOD S SPECIMEN RADEX 28282 [facility] [address] [facility] THERAPEUT 52284 SHIRA SILVA IC PX 1/> 9 [facility] AREAS INC INC EACH 15 MIN EXERCISES APPL 67733 SHIRA SILVA MODALITY 9 [facility] 1/> AREAS INC INC ELEC STIMJ UNATTENDE D APPLICATI 22718 [facility] SILVA ON 9 [facility] MODALITY INC INC 1/> AREAS HOT/COLD PACKS APPLICATI 88587 SH[facility]A SILVA ON 9 [facility] MODALITY INC INC 1/> AREAS HOT/COLD PACKS THERAPEUT 79969 SHIRA SILVA IC PX 1/> 9 [facility] AREAS INC INC EACH 15 MIN EXERCISES APPL 78248 SHIRA SILVA MODALITY 9 [facility] 1/> AREAS INC INC ELEC STIMJ UNATTENDE D URNLS DIP 41465 FAMILY YAJAIRA, 9 CARE R NII STICK/TAB ASSOCIATE LET RGNT S NON-AUTO W/O MICRSCP CULTURE 00711 COMBINED COMBINED BACTERIAL 9 PHYSICIAN PHYSICIAN S LAB S LAB QUANTTATI VE COLONY COUNT URINE URNLS DIP 79531 FAMILY YAJAIRA, 9 CARE R NII STICK/TAB ASSOCIATE LET RGNT S NON-AUTO W/O MICRSCP APPL 21477 SH[facility]A SILVA MODALITY 9 [facility] 1/> AREAS INC INC ELEC STIMJ UNATTENDE D THERAPEUT 63443 SHIRA SILVA IC PX 1/> 9 [facility]AS INC INC EACH 15 MIN EXERCISES APPLICATI 97277 SHIRA SILVA ON 9 [facility] MODALITY INC INC 1/> AREAS HOT/COLD PACKS MANUAL 62136 SHIRA SILVA THERAPY 9 [facility] TQS 1/> INC INC REGIONS EACH 15 MINUTES THERAPEUT 01083 SHIRA SILVA IC PX 1/> 9 [facility] AREAS INC INC EACH 15 MIN EXERCISES THERAPEUT 27741 SHIRA SILVA IC PX 1/> 9 [facility] AREAS INC INC EACH 15 MIN EXERCISES APPL 48235 SHIRA SILVA MODALITY 9 [facility] 1/> AREAS INC INC ELEC STIMJ UNATTENDE D MANUAL 61824 SHIRA SILVA THERAPY 9 [facility] TQS 1/> INC INC REGIONS EACH 15 MINUTES APPLICATI 96872 SH[facility]A SILVA ON 9 [facility] MODALITY INC INC 1/> AREAS HOT/COLD PACKS MANUAL 98859 SHIRA SILVA THERAPY 9 [facility] TQS 1/> INC INC REGIONS EACH 15 MINUTES THERAPEUT 47776 SHIRA SILVA IC PX 1/> 9 [facility] AREAS INC INC EACH 15 MIN EXERCISES PHYSICAL 33924 SHIRA SILVA THERAPY 9 [facility] EVALUATIO INC INC N THERAPEUT 34812 SHIRA SILVA IC PX 1/> 9 [facility] AREAS INC INC EACH 15 MIN EXERCISES ANKLE L1930 PROSTHETI PROSTHETI FOOT 8 C&ORTHOTI C&ORTHOTI ORTHOTIC C C PLASTIC/O ASSOCIATE ASSOCIATE [employer] PREFAB RADEX 70593 [place] ABDIRASHID, ANKLE 8 MEDICAL REJI K COMPLETE SERV MINIMUM 3 [facility] [address]36 [facility], DISCHARGE 8 [facility] DAY SERV MANAGEMEN FOUNDATIO T 30 MIN/< SBSQ 39481 [facility] 8 [facility] CARE/[facility] SERV [address] PELVIS 49726 [facility], MEDICAL [place] W/[place] [address] [facility], ABDOMEN 8 MEDICAL MIKEY W/CONTRAS SERV T FOUNDATIO MATERIAL INITIAL 30118 [place] [facility] INPATIENT 8 MEDICAL , JANAE CONSULT SERV R NEW/ESTAB FOUNDATIO PT 55 MIN INITIAL 71082 [facility] 8 [facility] CARE/DAY SERV 70 FOUNDATIO MINUTES [facility] [address] [address] Y [facility] BLOOD 52341 FAMILY YAJAIRA, COUNT 8 CARE R NII COMPLETE ASSOCIATE AUTO&[place] [address] AL[place]AMA LOKI, ABDOMEN 8 MEDICAL VILMA P W/CONTRAS IMAGING T ASSOCIATE MATERIAL S CT PELVIS 96676 ALABAMA LOKI, 8 MEDICAL VILMA P W/CONTRAS IMAGING T ASSOCIATE MATERIAL S 3D 35216 ALABAMA LOKI, RENDERING 8 MEDICAL VILMA P IMAGING W/INTERP& ASSOCIATE POSTPROC S DIFF WORK STATION BLOOD 19090 FAMILY ZEESHANBERRY, COUNT 8 CARE ALEKSANDR T COMPLETE ASSOCIATE AUTO&AUTO S DIFRNTL WBC BLOOD 46578 FAMILY LISA, J COUNT 8 CARE G COMPLETE ASSOCIATE AUTO&AUTO S DIFRNTL WBC PROTHROMB 18129 Heidi REDD IN TIME 8 CARE G ASSOCIATE S THROMBOPL 94942 COMBINED COMBINED ASTIN 8 PHYSICIAN PHYSICIAN TIME S LAB S LAB PARTIAL PLASMA/WH OLE BLOOD Encounters Encounter Start End Date Code Location Performer Type Date OFFICE 47181 FAMILY OCONNOR OUTPATIEN 7 7 CARE T VISIT ASSOCIATE 25 S MINUTES OFFICE 66143 FAMILY ALYSSA OUTPATIEN 7 7 CARE T VISIT ASSOCIATE 15 S MINUTES OFFICE 80035 FAMILY CHAZ OUTPATIEN 7 7 CARE T VISIT ASSOCIATE 15 S MINUTES EMERGENCY 48921 YAYA PAZ DEPT 7 7 PHYSICIAN U VISIT S, [facility] HIGH SEVERITY& THREAT [facility] - 7 7 [facility] OUTPATIEN INC T EMERGENCY 48914 [facility] 7 7 [facility] DEPARTMEN INC T VISIT HIGH/URGE NT SEVERITY OFFICE 24683 FAMILY YAJAIRA OUTPATIEN 7 7 CARE T VISIT ASSOCIATE 15 S MINUTES OFFICE 26815 FAMILY WARE OUTPATIEN 7 7 CARE T VISIT ASSOCIATE 15 S MINUTES OFFICE 97058 FAMILY YAJAIRA OUTPATIEN 7 7 CARE T VISIT ASSOCIATE 15 S MINUTES OFFICE 17223 FAMILY ANASTASIA OUTPATIEN 6 6 CARE T VISIT ASSOCIATE 15 S MINUTES OFFICE 48738 FAMILY YAJAIRA OUTPATIEN 6 6 CARE T VISIT ASSOCIATE 15 S MINUTES EMERGENCY 51924 6 6 [facility] DEPART[facility] T VISIT HOSPITALS HIGH/URGE NT SEVERITY [facility]PITAL - 6 6 [facility] OUTPATIEN E T HOSPITALS EMERGENCY 25121 [facility] 6 6 MEDICAL DEPARTMEN SERV T VISIT FOUNDATIO LOW/MODER N SEVERITY OFFICE 63975 [facility] OUTPATIEN 6 6 PHYSICIAN WENDY T NEW 10 S GROUP MINUTES OFFICE 44231 FAMILY ISAMAR OUTPATIEN 6 6 CARE T VISIT ASSOCIATE 15 S MINUTES OFFICE 12180 FAMILY ISAMAR OUTPATIEN 6 6 CARE TAR T VISIT ASSOCIATE 15 S MINUTES OFFICE 54879 FAMILY ISAMAR OUTPATIEN 6 6 CARE TAR T VISIT ASSOCIATE 15 S MINUTES OFFICE 63117 FAMILY CROWDY OUTPATIEN 6 6 CARE CRI T VISIT ASSOCIATE 15 S MINUTES OFFICE 71178 FAMILY MULBERRY OUTPATIEN 6 6 CARE NEW T VISIT ASSOCIATE 15 S MINUTES OFFICE 85675 FAMILY ISAMAR OUTPATIEN 6 6 CARE TAR T VISIT ASSOCIATE 15 S MINUTES OFFICE 02668 FAMILY LISA OUTPATIEN 6 6 CARE PAUL T VISIT ASSOCIATE 15 S MINUTES OFFICE 33669 FAMILY ISAMAR OUTPATIEN 6 6 CARE TAR T VISIT ASSOCIATE 15 S MINUTES OFFICE 76518 FAMILY LISA OUTPATIEN 6 6 CARE PAUL T VISIT ASSOCIATE 15 S MINUTES OFFICE 62984 FAMILY LISA OUTPATIEN 6 6 CARE PAUL T VISIT ASSOCIATE 15 S MINUTES HOSPITAL UNIVERSIT - 6 6 Y [facility] HOSP[facility] T EMERGENCY 41573 UNIVERSIT 6 6 Y [facility] T VISIT MODERATE SEVERITY OFFICE 48243 FAMILY YAJAIRA OUTPATIEN 6 6 CARE R H T VISIT ASSOCIATE 15 S MINUTES OFFICE 00274 FAMILY ISAMAR OUTPATIEN 6 6 CARE TAR T VISIT ASSOCIATE 15 S MINUTES EMERGENCY 47803 YAYA SOTINGEAN 6 6 PHYSICIAN U [facility] T VISIT MODERATE SEVERITY OFFICE 00163 FAMILY LISA OUTPATIEN 6 6 CARE PAUL T VISIT ASSOCIATE 10 S MINUTES HOSPITAL SHIRA - 6 6 [facility] OUT[facility]EN [facility] T HOSP[facility] SHIRA - 6 6 [facility] OUTPATIEN [facility] T HOSPITAL SHIRA - 6 6 [facility]EN [facility] T HOSPITAL SHIRA - 6 6 [facility] OUTPATIEN [facility] T OFFICE 72502 FAMILY LISA OUTPATIEN 6 6 CARE PAUL T VISIT ASSOCIATE 15 S MINUTES HOSPITAL SH[facility] - 6 6 [facility]EN [facility] T HOSPITAL SHIRA - 6 6 [facility] - 6 6 [facility]EN [facility] - 6 6 [facility] OFFICE 83023 FAMILY LISA OUTPATIEN 6 6 CARE PAUL T VISIT ASSOCIATE 15 S MINUTES HOSPITAL [facility] - 6 6 [facility] - 6 6 [facility] OUTPATIEN [facility] T EMERGENCY 04393 SH[facility]A 6 6 [facility] T VISIT MODERATE SEVERITY EMERGENCY 58078 YAYA PAZ 6 6 PHYSICIAN Julita BROWNING [facility] S, [facility] T VISIT HIGH/URGE NT SEVERITY OFFICE 37290 FAMILY LISA OUTPATIEN 6 6 CARE PAUL T VISIT ASSOCIATE 15 S MINUTES EMERGENCY 86480 YAYA MARTINEZ 6 6 PHYSICIAN JR HANSEN [facility], [facility] HIGH/URGE NT SEVERITY OFFICE 78575 FAMILY YAJAIRA OUTPATIEN 6 6 CARE R H T VISIT ASSOCIATE 15 S MINUTES OFFICE 17534 FAMILY CROWDY OUTPATIEN 6 6 CARE CRI T VISIT ASSOCIATE 15 S MINUTES OFFICE 76644 FAMILY CROWDY OUTPATIEN 6 6 CARE CRI T VISIT ASSOCIATE 15 S MINUTES OFFICE 54381 FAMILY YAJAIRA OUTPATIEN 6 6 CARE R H T VISIT ASSOCIATE 15 S MINUTES OFFICE 96027 FAMILY CROWDY OUTPATIEN 6 6 CARE CRI T VISIT ASSOCIATE 15 S MINUTES OFFICE 93733 FAMILY LISA OUTPATIEN 5 5 CARE PAUL T VISIT ASSOCIATE 15 S MINUTES OFFICE 61590 FAMILY CROWDY OUTPATIEN 5 5 CARE CRI T VISIT ASSOCIATE 15 S MINUTES OFFICE 03458 FAMILY YAJAIRA OUTPATIEN 5 5 CARE R H T VISIT ASSOCIATE 15 S MINUTES OFFICE 31661 FAMILY CROWDY OUTPATIEN 5 5 CARE CRI T VISIT ASSOCIATE 15 S MINUTES OFFICE 47215 FAMILY CROWDY OUTPATIEN 5 5 CARE CRI T VISIT ASSOCIATE 15 S MINUTES OFFICE 29715 [facility] PETTEY OUTPATIEN 5 5 PHYSICIAN JAM T VISIT S GROUP 15 MINUTES EMERGENCY 95115 YAYA DE LA VEGA 5 5 PHYSICIAN SONU DEPARTMEN S, PLLC T VISIT MODERATE SEVERITY [facility] 5 [facility] 01257 [facility] PETTEY OUTPATIEN 5 5 PHYSICIAN JAM T NEW 20 S GROUP MINUTES OFFICE 24061 FAMILY LISA OUTPATIEN 5 5 CARE PAUL T VISIT ASSOCIATE 25 S MINUTES OFFICE 01812 FAMILY YAJAIRA OUTPATIEN 5 5 CARE R H T VISIT ASSOCIATE 15 S MINUTES OFFICE 29692 [place] MICHOACANO OUTPATIEN 5 5 MEDICAL ALLEN T VISIT SERV 25 FOUNDATIO MINUTES N OFFICE 14090 UNIVERSIT OUTPATIEN 5 5 Y T VISIT HOSPITAL 10 MINUTES HOSPITAL UNIVERSIT - 5 5 Y OUTPATIEN [facility] T OFFICE 97071 FAMILY YAJAIRA OUTPATIEN 5 5 CARE R H T VISIT ASSOCIATE 15 S MINUTES OFFICE 09077 FAMILY CROWDY OUTPATIEN 5 5 CARE CRI T VISIT ASSOCIATE 15 S MINUTES OFFICE 51277 FAMILY LISA J OUTPATIEN 5 5 CARE G T VISIT ASSOCIATE 15 S MINUTES HOSPITAL [facility] - 5 5 [facility] OUTPATIEN INC T EMERGENCY 13341 SHIRA DE LA VEGA 5 5 [facility] T VISIT P LOW/MODER SEVERITY EMERGENCY 27879 SHIRA 5 5 [facility] INC T VISIT MODERATE SEVERITY OFFICE 92223 FAMILY MULBERRY OUTPATIEN 4 4 CARE NEW T VISIT ASSOCIATE 15 S MINUTES OFFICE 48770 FAMILY YAJAIRA OUTPATIEN 4 4 CARE R H T VISIT ASSOCIATE 15 S MINUTES OFFICE 77808 FAMILY MULBERRY OUTPATIEN 4 4 CARE NEW T VISIT ASSOCIATE 15 S MINUTES OFFICE 57167 FAMILY OUTPATIEN 4 4 CARE T VISIT ASSOCIATE 15 S MINUTES OFFICE 69066 FAMILY YAJAIRA OUTPATIEN 4 4 CARE R H T VISIT ASSOCIATE 15 S MINUTES OFFICE 05953 LISA J OUTPATIEN 4 4 G T VISIT 15 MINUTES OFFICE 77175 MULBERRY MULBERRY OUTPATIEN 4 4 NEW NEW T VISIT 15 MINUTES OFFICE 71159 CINTRON CINTRON OUTPATIEN 4 4 ERIC ERIC T VISIT 15 MINUTES OFFICE 36717 MULBERRY MULBERRY OUTPATIEN 4 4 NEW NEW T VISIT 15 MINUTES OFFICE 19494 LISA GONZALEZ J OUTPATIEN 4 4 G G T VISIT 15 MINUTES HOSPITAL [facility] - 4 4 [facility]EN INC T OFFICE 33781 FAMILY OUTPATIEN 3 3 CARE T VISIT ASSOCIATE 15 S MINUTES OFFICE 61197 ANASTASIA MULBERRY OUTPATIEN 3 3 NEW NEW T VISIT 15 MINUTES OFFICE 25053 FAMILY GONZALEZ OUTPATIEN 3 3 CARE PAUL T VISIT ASSOCIATE 15 S MINUTES OFFICE 50860 MATEO ANNY OUTPATIEN 3 3 MEDICAL EDW T VISIT SERV 25 FOUNDATIO MINUTES N OFFICE 45261 YAJAIRA YAJAIRA OUTPATIEN 3 3 R H R H T VISIT 15 MINUTES OFFICE 53344 ABDULAZIZ CINTRON OUTPATIEN 3 3 ERIC ERIC T VISIT 15 MINUTES HOSPITAL UNIVERSIT - 3 3 [facility] T OFFICE 92848 KMSF CINTRON OUTPATIEN 3 3 NURSE ERIC T VISIT PRACTITIO 15 NER GR MINUTES OFFICE 75603 LISA Gordon OUTPATIEN 3 3 G G T VISIT 10 MINUTES HOSPITAL SHIRA - 3 3 [facility] OUTPATIEN [facility] T OFFICE 90829 LISA Gordon OUTPATIEN 3 3 G G T VISIT 15 MINUTES HOSPITAL SHIRA - 3 3 [facility] OUTPATIEN INC T OFFICE 21217 ABDULAZIZ ESTRADAON OUTPATIEN 3 3 ERIC ERIC T VISIT 15 MINUTES OFFICE 07373 MULMARSHA MULBERRY OUTPATIEN 3 3 NEW NEW T VISIT 15 MINUTES OFFICE 53732 SHIRA SILVA OUTPATIEN 2 2 [facility] T VISIT CENTER CENTER 10 MINUTES HOSPITAL UNIVERSIT - 2 2 [employer] SHIRA - 2 2 [facility] OUTPATIEN INC T EMERGENCY 41204 MATEO CALLOWAY 2 2 MEDICAL NEW DEPARTMEN SERV T VISIT FOUNDATIO MODERATE SEVERITY EMERGENCY 32499 UNIVERSIT DEPT 2 2 Y VISIT HOSPITAL HIGH SEVERITY& THREAT [facility] UNIVERSIT - 2 2 Y [facility] SHIRA - 2 2 [facility] OUTPATIEN INC T OFFICE 28340 ABDULAZIZ CINTRON OUTPATIEN 2 2 ERIC ERIC T VISIT 15 MINUTES OFFICE 24707 [facility] CONSULTAT 2 2 LUCIAN LUCIAN ION NEW/ESTAB PATIENT 40 MIN HOSPITAL UNIVERSIT - 2 2 Y [facility] UNIVERSIT - 2 2 Y [facility] T OFFICE 29238 CAM LEVY OUTPATIEN 2 2 SRI SRI T VISIT 25 MINUTES OFFICE 46755 FAMILY OUTPATIEN 2 2 CARE T VISIT ASSOCIATE 15 S MINUTES OFFICE 22400 ABDULAZIZ CINTRON OUTPATIEN 2 2 ERIC ERIC T VISIT 15 MINUTES OFFICE 09270 WARE WARE OUTPATIEN 2 2 KATIUSKA KATIUSKA T VISIT 15 MINUTES OFFICE 96902 LISA Gordon OUTPATIEN 2 2 T VISIT 15 MINUTES OFFICE 63827 LISA Gordon OUTPATIEN 2 2 T VISIT 15 MINUTES HOSPITAL [facility] - 2 2 [facility] OUTPATIEN INC T OFFICE 95036 WARE WARE OUTPATIEN 2 2 KATIUSKA KATIUSKA T VISIT 15 MINUTES HOSPITAL SHIRA - 2 2 [facility] OUTPATIEN INC T EMERGENCY 02324 [facility] 2 2 [facility] DEPARTMEN INC T VISIT MODERATE SEVERITY OFFICE 87031 FAMILY WARE OUTPATIEN 2 2 CARE KATIUSKA T VISIT ASSOCIATE 15 S MINUTES HOSPITAL SH[facility] - 1 1 [facility] OUTPATIEN INC T OFFICE 61408 ABDULAZIZ CINTRON OUTPATIEN 1 1 ERIC ERIC T VISIT 15 MINUTES OFFICE 55159 MARINE HAWTHORNE OUTPATIEN 1 1 YESI YESI T NEW 30 MINUTES OFFICE 44648 FAMILY MULBERRY OUTPATIEN 1 1 CARE NEW T VISIT ASSOCIATE 15 S MINUTES OFFICE 13403 FAMILY MULBERRY OUTPATIEN 1 1 CARE NEW T VISIT ASSOCIATE 15 S MINUTES OFFICE 15571 FAMILY MULBERRY OUTPATIEN 1 1 CARE NEW T VISIT ASSOCIATE 15 S MINUTES HOSPITAL SH[facility]A - 1 1 [facility] OUTPATIEN INC T OFFICE 14178 FAMILY YAJAIRA OUTPATIEN 1 1 CARE R H T VISIT ASSOCIATE 15 S MINUTES OFFICE 94475 FAMILY YAJAIRA OUTPATIEN 1 1 CARE R H T VISIT ASSOCIATE 15 S MINUTES OFFICE 41429 FAMILY LISA J OUTPATIEN 1 1 CARE T VISIT ASSOCIATE 15 S MINUTES OFFICE 08013 JOHN CITNRON OUTPATIEN 1 1 NURSE ERIC T VISIT PRACTITIO 15 NER GR MINUTES OFFICE 95064 FAMILY MULBERRY OUTPATIEN 1 1 CARE NEW T VISIT ASSOCIATE 25 S MINUTES OFFICE 84859 MATEO RÍOS OUTPATIEN 1 1 MEDICAL ALLEN T VISIT SERV 15 FOUNDATIO MINUTES HOSPITAL SH[facility]A - 0 0 [facility] OUTPATIEN INC T OFFICE 80987 FAMILY LISA J OUTPATIEN 0 0 CARE T VISIT ASSOCIATE 15 S MINUTES OFFICE 55704 FAMILY YAJAIRA OUTPATIEN 0 0 CARE R H T VISIT ASSOCIATE 15 S MINUTES OFFICE 04544 FAMILY MULBERRY OUTPATIEN 0 0 CARE NEW T VISIT ASSOCIATE 15 S MINUTES HOSPITAL UNIVERSIT - 0 0 Y INPATIENT HOSPITAL OFFICE 19523 FAMILY LISA Gordon OUTPATIEN 0 0 CARE T VISIT ASSOCIATE 15 S MINUTES OFFICE 60727 MATEO RÍOS OUTPATIEN 0 0 MEDICAL ALLEN T VISIT SERV 10 FOUNDATIO MINUTES OFFICE 30475 FAMILY OCONNOR OUTPATIEN 0 0 CARE NEW T VISIT ASSOCIATE 15 S MINUTES HOSPITAL UNIVERSIT - 0 0 Y [facility] T OFFICE 58644 JOHN CINTRON, OUTPATIEN 0 0 NURSE JOSÉ Stephens T VISIT PRACTITIO 15 NER GROUP MINUTES OFFICE 39409 Heidi REDD OUTPATIEN 0 0 CARE G T VISIT ASSOCIATE 15 S MINUTES OFFICE 56867 FAMILY BRENNANEET, OUTPATIEN 0 0 CARE R NII T VISIT ASSOCIATE 15 S MINUTES OFFICE 91466 [facility] CINTRON, OUTPATIEN 0 0 NURSE JOSÉ Stephens T VISIT PRACTITIO 15 NER GROUP MINUTES OFFICE 32986 FAMILY BRENNANEET, OUTPATIEN 0 0 CARE R NII T VISIT ASSOCIATE 15 S MINUTES OFFICE 18723 FAMILY OCONNOR, OUTPATIEN 0 0 CARE ALEKSANDR T T VISIT ASSOCIATE 15 S MINUTES OFFICE 20911 Heidi REDD OUTPATIEN 0 0 CARE G T VISIT ASSOCIATE 15 S MINUTES OFFICE 55454 MATEO ANNY, OUTPATIEN 0 0 MEDICAL EDWARD T VISIT SERV 15 FOUNDATIO MINUTES OFFICE 01337 FAMILY BRENNANEET, OUTPATIEN 0 0 CARE R NII T VISIT ASSOCIATE 15 S MINUTES HOSPITAL UNIVERSIT - 0 0 Y [facility] T OFFICE 53705 FAMILY BRENNANEET, OUTPATIEN 9 9 CARE R NII T VISIT ASSOCIATE 15 S MINUTES HOSPITAL UNIVERSIT - [address] [facility]PITAL SHIRA - 9 9 [facility] OUTPATIEN INC T HOSPITAL SHIRA - 9 9 [facility] OUTPATIEN INC T OFFICE 86173 FAMILY OCONNOR, OUTPATIEN 9 9 CARE ALEKSANDR T T VISIT ASSOCIATE 15 S MINUTES HOSPITAL SHIRA - 9 9 [facility] OUTPATIEN INC T OFFICE 99476 FAMILY GATES OUTPATIEN 9 9 CARE R NII T VISIT ASSOCIATE 15 S MINUTES OFFICE 52092 JOHN CINTRON OUTPATIEN 9 9 NURSE JOSÉ Stephens T VISIT PRACTITIO 10 NER GROUP MINUTES OFFICE 66055 FAMILY OCONNOR OUTPATIEN 9 9 CARE ALEKSANDR T T VISIT ASSOCIATE 15 S MINUTES OFFICE 44346 [facility] OUTPATIEN 9 9 [facility] T VISIT INC 10 MINUTES HOSPITAL SHIRA - 9 9 [facility]IEN [facility] T [facility], [facility] 01098 MATEO LEVY OUTPATIEN 9 9 MEDICAL BIMAL T VISIT SERV 15 FOUNDATIO MINUTES [facility]ERSIT - 9 [facility] 14300 Heidi GONZALEZ OUTPATIEN 9 9 CARE G T VISIT ASSOCIATE 15 S MINUTES OFFICE 99358 FAMILY GATES OUTPATIEN 9 9 CARE R NII T VISIT ASSOCIATE 15 S MINUTES OFFICE 55925 MATEO MCCORMICK OUTPATIEN 9 9 MEDICAL EDWARD T VISIT SERV 15 FOUNDATIO [facility] SHIRA - 9 9 [facility] OUTPATIEN INC T OFFICE 14539 [place] KACI, CONSULTBELEN 9 9 MEDICAL JULIETTE T ION SERV NEW/ESTAB FOUNDATIO PATIENT 40 MIN OFFICE 33629 FAMILY YAJAIRA, OUTPATIEN 9 9 CARE R NII T VISIT ASSOCIATE 15 S MINUTES OFFICE 88085 FAMILY MULBERRY, OUTPATIEN 9 9 CARE ALEKSANDR T T VISIT ASSOCIATE 15 S MINUTES OFFICE 38266 FAMILY YAJAIRA, OUTPATIEN 9 9 CARE R NII T VISIT ASSOCIATE 15 S MINUTES HOSPITAL [facility] - 9 9 [facility] OUTPATIEN INC T OFFICE 17931 FAMILY MULBERRY, OUTPATIEN 9 9 CARE ALEKSANDR T T VISIT ASSOCIATE 15 S MINUTES OFFICE 48961 FAMILY MULBERRY, OUTPATIEN 9 9 CARE ALEKSANDR T T VISIT ASSOCIATE 15 S MINUTES OFFICE 74487 KMS[facility] ABDULAZIZ, OUTPATIEN 9 9 NURSE JOSÉ Stephens T VISIT PRACTITIO 10 NER GROUP [facility] OUT[facility] INC T OFFICE 13952 FAMILY YAJAIRA, OUTPATIEN 9 9 CARE R NII T VISIT ASSOCIATE 15 S MINUTES OFFICE 52022 FAMILY YAJAIRA, OUTPATIEN 9 9 CARE R NII T VISIT ASSOCIATE 15 S MINUTES OFFICE 65438 FAMILY YAJAIRA, OUTPATIEN 9 9 CARE R NII T VISIT ASSOCIATE 15 S MINUTES HOSPITAL [facility] - 9 9 [facility] OUTPATIEN INC T OFFICE 57115 FAMILY YAJAIRA, OUTPATIEN 9 9 CARE R NII T VISIT ASSOCIATE 15 S MINUTES OFFICE 25075 MATEO CASTROKAYLEEN OUTPATIEN 9 9 MEDICAL EDWARD T VISIT SERV 15 FOUNDATIO MINUTES OFFICE 04893 FAMILY GATES OUTPATIEN 9 9 CARE R NII T VISIT ASSOCIATE 15 S MINUTES OFFICE 21305 FAMILY GATES OUTPATIEN 8 8 CARE R NII T VISIT ASSOCIATE 10 S MINUTES OFFICE 59210 MATEO RÍOS OUTPATIEN 8 8 MEDICAL ELENA J T VISIT SERV 10 FOUNDATIO MINUTES OFFICE 30250 FAMILY GATES, OUTPATIEN 8 8 CARE R NII T VISIT ASSOCIATE 15 S MINUTES OFFICE 63522 MATEO ANNY OUTPATIEN 8 8 MEDICAL EDWARD T VISIT SERV 15 FOUNDATIO MINUTES HOSPITAL UNIVERSIT - 8 8 Y [facility] T OFFICE 79678 MATEO MICHOACANO OUTPATIPATRICA 8 8 MEDICAL ELENA J T VISIT SERV 15 FOUNDATIO MINUTES HOSPITAL UNIVERSIT - 8 8 Y [facility] HOSPITAL SHIRA - 8 8 MEM [facility] T OFFICE 55278 BRI SAEEDPATIEN 8 8 CARE R NII T VISIT ASSOCIATE 15 S MINUTES OFFICE 49650 FAMILY OCONNOR, OUTPATIEN 8 8 CARE ALEKSANDR T T VISIT ASSOCIATE 15 S MINUTES OFFICE 22711 FAMILY OCONNOR, OUTPATIEN 8 8 CARE ALEKSANDR T T VISIT ASSOCIATE 15 S MINUTES OFFICE 73914 Heidi GONZALEZ OUTPATIEN 8 8 CARE G T VISIT ASSOCIATE 15 S MINUTES OFFICE 17545 FAMILY GATES, OUTPATIEN 8 8 CARE R NII T VISIT ASSOCIATE 15 S MINUTES OFFICE 85997 MATEO ANNY OUTPATIEN 8 8 MEDICAL EDWARD T VISIT SERV 15 FOUNDATIO MINUTES
--- OUTSIDE RECORDS SUMMARY | 2017-06-22 18:23 | External Medical Summary Rpt | CCD ---
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 DIFRNTL WBC BLOOD 61995 FAMILY FAMILY COUNT 4 CARE CARE COMPLETE ASSOCIATE ASSOCIATE AUTO&AUTO S S DIFRNTL WBC IAADIADOO 16660 FAMILY YAJAIRA 4 CARE R H INFLUENZA ASSOCIATE S BLOOD 11280 FAMILY FAMILY COUNT 4 CARE CARE COMPLETE ASSOCIATE ASSOCIATE AUTO&AUTO S S DIFRNTL WBC INJECTION J7185 [facility]ORX FACTOR 4 VIII PER IU BLOOD 71566 FAMILY FAMILY COUNT 4 CARE CARE COMPLETE ASSOCIATE ASSOCIATE AUTO&AUTO S S DIFRNTL WBC INJECTION J7185 BIORX BIORX FACTOR 4 VIII PER IU INJECTION J7185 BIORX BIORX FACTOR 4 VIII PER IU BLOOD 90255 FAMILY FAMILY COUNT 4 CARE CARE COMPLETE ASSOCIATE ASSOCIATE AUTO&AUTO S S DIFRNTL WBC ADD LW L2820 HARJIT SHAHNEY EXT ORTH 4 ORTHOPEDI ORTHOPEDI SFT CS CS INTERFCE MOLD BELW KNEE ADDITION L2210 HARJIT LOMBARDI LOWER 4 ORTHOPEDI ORTHOPEDI EXTREM CS CS DORSIFLEX ASSIST EA JOINT ADD LOW L2330 HARJIT SHAHNEY EXT LACER 4 ORTHOPEDI ORTHOPEDI MOLD PT CS CS MDL CSTM ORTHOTIC ONLY ANK FT L1940 HARJIT SHAHNEY ORTHOTIC 4 ORTHOPEDI ORTHOPEDI PLASTIC/O CS CS TH MATERIAL CUSTOM PAUL INJECTION J7185 BIORX BIORX FACTOR 4 VIII PER IU BLOOD 80253 LISA GONZALEZ J COUNT 4 G G COMPLETE AUTO&AUTO DIFRNTL WBC IAADIADOO 55559 MULBERRY MULBERRY 4 NEW NEW STREPTOCO CCUS GROUP A BLOOD 05823 MULBERRY MULBERRY COUNT 4 NEW NEW COMPLETE AUTO&AUTO DIFRNTL WBC BLOOD 38530 MULBERRY BALBAUGH COUNT 4 NEW AND COMPLETE AUTO&AUTO DIFRNTL WBC IAADIADOO 77041 MULBERRY MULBERRY 4 NEW NEW STREPTOCO CCUS GROUP A INJECTION J7185 BIORX BIORX FACTOR 4 VIII PER IU INJECTION J7185 BIORX BIORX FACTOR 4 VIII PER IU INJECTION J7185 BIORX BIORX FACTOR 4 VIII PER IU COLLECTIO 83471 LISA Gordon N 4 G G CAPILLARY BLOOD SPECIMEN NONINVASI 86569 LISA Gordon VE 4 G G EAR/PULSE OXIMETRY SINGLE DETER BLOOD 86209 LISA Gordon COUNT 4 G G COMPLETE AUTO&AUTO DIFRNTL WBC RADIOLOGI 57944 SHIRA Desai EXAM 4 [facility] CHEST 2 INC INC VIEWS FRONTAL&L ATERAL NEBULIZER E0570 HOLDEN HATCH WITH 4 HOME HOME COMPRESSO MEDICAL MEDICAL R EQUIPME EQUIPME ADMN SET A7003 YOUR YOUR SM VOL 4 PHARMACY PHARMACY [facility] PNEUMAT NEBULIZR DISPBL NONINVASI 44262 FAMILY SCOTT VE 3 CARE CARE EAR/PULSE ASSOCIATE ASSOCIATE OXIMETRY S S SINGLE DETER BLOOD 64577 MULBERRY MULBERRY COUNT 3 NEW NEW COMPLETE AUTO&AUTO DIFRNTL WBC COLLECTIO 90590 FAMILY GONZALEZ N 3 CARE PAUL CAPILLARY ASSOCIATE BLOOD S SPECIMEN BLOOD 46534 FAMILY GONZALEZ COUNT 3 CARE PAUL COMPLETE ASSOCIATE AUTO&AUTO S DIFRNTL WBC INJECTION J7185 BIORX BIORX FACTOR 3 VIII [...] BIORX BIORX FACTOR 3 VIII PER IU RADEX 01266 [facility] 3 Y Y [facility] MINIMUM 3 VIEWS URNLS DIP 08219 LISA J LISA J 3 G G STICK/TAB LET RGNT NON-AUTO W/O MICRSCP RADEX 70621 SYL SYL SPINE 3 MARA MARA LUMBOSACR AL 2/3 VIEWS RADEX 38092 SHIRA SILVA SPINE 3 [facility] LUMBOSACR INC INC AL MINIMUM 4 VIEWS INJECTION J7185 [facility]ORX FACTOR 3 VIII PER IU SUPPLIES A4221 BIORX BIORX FOR MAINT 3 NON-INS RX INFUS CATH PER WK ORTHOTIC 15788 SHIRA SILVA MGMT&DAREN 3 [facility] [place] UXTR INC INC LXTR&/TRN K EA 15 ELB ORTH L3760 ADVANCED ADVANCED W/ADJ 3 TECHNOLOG TECHNOLOG LOCK JNT IES INC IES INC PRFAB W/FIT&ADJ TYPE SUPPLIES A4221 BIORX BIORX FOR MAINT 3 NON-INS RX INFUS CATH PER WK INJ F/ J7186 BIORX BIORX VWF CMPLX 3 PER FACTOR VIII IU BLOOD 74497 MULBERRY MULBERRY COUNT 3 NEW NEW COMPLETE AUTO&AUTO DIFRNTL WBC INJ AHF/ J7186 BIORX BIORX VWF CMPLX 2 PER FACTOR VIII IU SUPPLIES A4221 BIORX BIORX FOR MAINT 2 NON-INS RX INFUS CATH PER WK INJ AHF/ J7186 BIORX BIORX VWF CMPLX 2 PER FACTOR VIII IU RADEX 97337 [place] CHEPE ELBOW 2 MEDICAL AMBROSIO COMPLETE SERV MINIMUM 3 FOUNDATIO VIEWS N IIV3 99385 SHIRA SILVA VACCINE 2 [facility] VIRUS 0.5 ML DOSAGE IM USE APPLICATI 28334 SHIRA SILVA ON 2 [facility] MODALITY INC INC 1/> AREAS HOT/COLD PACKS E-STIM G0283 SHIRA SILVA 1/> AREAS 2 [facility] OTH THAN INC INC WND CARE PART TX PLAN APPL 76166 SHIRA SILVA MODALITY 2 [facility] 1/> AREAS INC INC ULTRASOUN D EA 15 MIN MANUAL 10881 SHIRA SHIRA THERAPY 2 [facility] TQS 1/> INC INC REGIONS EACH 15 MINUTES INJ AHF/ J7186 BIORX BIORX VWF CMPLX 2 PER FACTOR VIII IU APPL 51034 SHIRA SILVA MODALITY 2 [facility] 1/> AREAS INC INC ULTRASOUN D EA 15 MIN MANUAL 26983 SHIRA SILVA THERAPY 2 [facility] TQS 1/> INC INC REGIONS EACH 15 MINUTES APPLICATI 65616 SHIRA SILVA ON 2 [facility] MODALITY INC INC 1/> AREAS HOT/COLD PACKS E-STIM G0283 SHIRA SILVA 1/> AREAS 2 [facility] OTH THAN INC INC WND CARE PART TX PLAN INJ AHF/ J7186 BIORX BIORX VWF CMPLX 2 PER FACTOR VIII IU E-STIM G0283 SHIRA SILVA 1/> AREAS 2 [facility] OTH THAN INC INC WND CARE PART TX PLAN APPLICATI 41783 SHIRA SILVA ON 2 [facility] MODALITY INC INC 1/> AREAS HOT/COLD PACKS APPL 60719 SHIRA SILVA MODALITY 2 [facility] 1/> AREAS INC INC ULTRASOUN D EA 15 MIN MANUAL 84549 SHIRA SILVA THERAPY 2 [facility] TQS 1/> INC INC REGIONS EACH 15 MINUTES MANUAL 24818 SHIRA SILVA THERAPY 2 [facility] TQS 1/> INC INC REGIONS EACH 15 MINUTES APPLICATI 29312 SHIRA SILVA ON 2 [facility] MODALITY INC INC 1/> AREAS HOT/COLD PACKS E-STIM G0283 SHIRA SILVA 1/> AREAS 2 [facility] OTH THAN INC INC WND CARE PART TX PLAN APPL 37127 SHIRA SILVA MODALITY 2 [facility] 1/> AREAS INC INC ULTRASOUN D EA 15 MIN APPL 46952 SHIRA SILVA MODALITY 2 [facility] 1/> AREAS INC INC ULTRASOUN D EA 15 MIN MANUAL 87920 SHIRA SILVA THERAPY 2 [facility] TQS 1/> INC INC REGIONS EACH 15 MINUTES E-STIM G0283 SHIRA SILVA 1/> AREAS 2 [facility] OTH THAN INC INC WND CARE PART TX PLAN APPLICATI 36665 SHIRA SILVA ON 2 [facility] MODALITY INC INC 1/> AREAS HOT/COLD PACKS APPLICATI 27735 SHIRA SILVA ON 2 [facility] MODALITY INC INC 1/> AREAS HOT/COLD PACKS E-STIM G0283 SHIRA SILVA 1/> AREAS 2 [facility] OTH THAN INC INC WND CARE PART TX PLAN THERAPEUT 89473 SHIRA SILVA IC PX 1/> 2 [facility] AREAS INC INC EACH 15 MIN EXERCISES APPL 37253 SHIRA SILVA MODALITY 2 [facility] 1/> AREAS INC INC ULTRASOUN D EA 15 MIN MANUAL 83049 SHIRA SILVA THERAPY 2 [facility] TQS 1/> INC INC REGIONS EACH 15 MINUTES INJ AHF/ J7186 BIORX BIORX VWF CMPLX 2 PER FACTOR VIII IU PROTHROMB 22735 [facility] IN TIME 2 Y Y [facility] THER 09000 [facility] PROPH/DX 2 Y Y NJX IV [facility] PUSH SINGLE/1S T SBST/DRUG THROMBOPL 17271 [facility] ASTIN 2 Y Y TIME [facility] PARTIAL PLASMA/WH OLE BLOOD SEDIMENTA 02774 [facility] TION RATE 2 Y Y RBC [facility] AUTOMATED RADEX 98177 [place] MERHAR ELBOW 2 MEDICAL GAR COMPLETE SERV MINIMUM 3 FOUNDATIO VIEWS N C-REACTIV 32675 [facility] E PROTEIN 2 Y Y HOSPITAL HOSPITAL COLLECTIO 45366 [facility] N VENOUS 2 Y Y BLOOD [facility] VENIPUNCT URE INJECTION J2405 [facility] 2 Y Y [facility] ON HCL PER 1 MG BLOOD 30354 [facility] COUNT 2 Y Y COMPLETE [facility] AUTO&AUTO DIFRNTL WBC THERAPEUT 27988 [facility] IC 2 Y Y INJECTION [facility] IV PUSH EACH NEW DRUG INJECTION J2270 [facility] MORPHINE 2 Y Y SULFATE [facility] UP TO 10 MG MANUAL 31069 SHIRA SILVA THERAPY 2 [facility] TQS 1/> INC INC REGIONS EACH 15 MINUTES APPLICATI 14757 SHIRA SILVA ON 2 [facility] MODALITY INC INC 1/> AREAS HOT/COLD PACKS PHYSICAL 34339 SHIRA SILVA THERAPY 2 [facility] EVALUATIO INC INC N PROTHROMB 85086 [facility] IN TIME 2 Y Y HOSPITAL HOSPITAL INJECTION J1170 [facility] 2 Y Y HYDROMORP [facility] KADY UP TO 4 MG RINGERS J7120 [facility] LACTATE 2 Y Y INFUSION [facility] UP TO 1000 CC ARTHRT 23280 [facility] ELBOW 2 SRI SRI CAPSULAR EXCISION CAPSULAR RLS SPX INJECTION J2405 [facility] 2 Y Y [facility] ON HCL PER 1 MG PARTIAL 87876 [facility] EXCISION 2 SRI SRI BONE OLECRANON PROCESS ARTHROSCO 16644 CAM LEVY PY ELBOW 2 SRI SRI SURGICAL [place] [address] [facility] CARLOS SURG 2 Y [facility] [place] [facility]&SONU ROSCOPIC EXAM THROMBOPL 07259 [facility] ASTIN 2 Y Y TIME HOSPITAL HOSPITAL PARTIAL PLASMA/WH OLE BLOOD UNCLASSIF J3490 [facility] IED DRUGS 2 Y Y HOSPITAL HOSPITAL INJECTION J3010 [facility] FENTANYL 2 Y Y CITRATE [facility] HOSPITAL 0.1 MG INJECTION J2710 [facility] 2 Y Y NEOSTIGMI [facility] NE METHYLSUL FATE UP TO 0.5 MG ANESTHESI 33426 [facility] REILLY A ELBOW 2 LTH [place] JOINT ANESTHESI DIAGNOSTI A PSC C ARTHROSCO PIC BLOOD 84403 [facility] COUNT 2 Y Y COMPLETE HOSPITAL HOSPITAL AUTOMATED INJECTION J2270 [facility] MORPHINE 2 Y Y SULFATE [facility] HOSPITAL UP TO 10 MG INJECTION J2250 [facility] 2 Y Y MIDAZOLAM [facility] HCL PER 1 MG ARTHROSCO 75839 CAM BROOKELEONORMOI PY ELBOW 2 SRI SRI SURGICAL SYNOVECTO MY COMPLETE INJ AHF/ J7186 BIORX BIORX VWF CMPLX 2 PER FACTOR VIII IU INJ [facility]/ J7186 BIORX BIORX VWF CMPLX 2 PER FACTOR VIII IU FACTOR J7190 BIORX BIORX VIII 2 ANTIHEMOP HILIC FACTOR HUMAN PER IU RADEX 47831 [place] CHEPE ELBOW 2 MEDICAL AMBROSIO COMPLETE SERV MINIMUM 3 FOUNDATIO VIEWS N FACTOR J7190 BIORX BIORX VIII 2 ANTIHEMOP HILIC FACTOR HUMAN PER IU INJ F/ J7186 BIORX BIORX VWF CMPLX 2 PER FACTOR VIII IU BLOOD 26920 [facility] COUNT 2 [place] COMPLETE AUTO&AUTO DIFRNTL WBC INJ F/ J7186 BIORX BIORX VWF CMPLX 2 PER FACTOR VIII IU PROTHROMB 93644 LISA Gordon IN TIME 2 BLOOD 70825 LISA Gordon COUNT 2 COMPLETE AUTO&AUTO DIFRNTL WBC RADIOLOGI 67627 SHIRA Desai EXAM 2 [facility] CHEST 2 INC INC VIEWS FRONTAL&L ATERAL TRANSFERA 42899 LISA CAMARILLO ANT SE 2 ASPARTATE AMINO AST SGOT TRANSFERA 04871 LISA Gordon SE 2 ALANINE AMINO ALT SGPT INJ F/ J7186 BIORX BIORX VWF CMPLX 2 PER FACTOR VIII IU SUPPLIES A4221 BIORX BIORX FOR MAINT 2 NON-INS RX INFUS CATH PER WK FACTOR J7190 BIORX BIORX VIII 2 ANTIHEMOP HILIC FACTOR HUMAN PER IU INJ AHF/ J7186 BIORX BIORX VWF CMPLX 2 PER FACTOR VIII IU FACTOR J7190 BIORX BIORX VIII 2 ANTIHEMOP HILIC FACTOR HUMAN PER IU URNLS DIP 06241 WARE WARE 2 [place] STICK/TAB LET RGNT NON-AUTO W/O MICRSCP BLOOD 29362 WARE WARE COUNT 2 [place] COMPLETE AUTO&AUTO DIFRNTL WBC CULTURE 72767 COMBINED COMBINED BACTERIAL 2 PHYSICIAN PHYSICIAN S LA S LA QUANTTATI VE COLONY COUNT URINE THROMBOPL 45842 SHIRA SILVA ASTIN 2 [facility] TIME INC INC PARTIAL PLASMA/WH OLE BLOOD URNLS DIP 22641 SHIRA SILVA 2 [facility] STICK/TAB INC INC LET REAGENT AUTO MICROSCOP Y BLOOD 33156 SHIRA SILAV COUNT 2 [facility] COMPLETE INC INC AUTO&[place] [address] SYL SYL ABDOMEN & 2 MARA MARA PELVIS W/CONTRAS T MATERIAL LOCM Q9967 SHIRA SILVA 300-399 2 [facility] MG/ML INC INC IODINE CONCENTRA TION PER ML COMPREHEN 26041 SHIRA SILVA SIVE 2 [facility] METABOLIC INC INC PANEL PROTHROMB 07565 SHIRA RINALDI IN TIME 2 [facility] JR THO INC FACTOR J7190 BIORX BIORX VIII 2 ANTIHEMOP HILIC FACTOR HUMAN PER IU BLOOD 49606 FAMILY FAMILY COUNT 2 CARE CARE COMPLETE ASSOCIATE ASSOCIATE AUTO&AUTO S S DIFRNTL WBC FACTOR J7190 BIORX BIORX VIII 1 ANTIHEMOP HILIC FACTOR HUMAN PER IU ANK FT L1906 ADVANCED ADVANCED ORTHOS 1 TECHNOLOG TECHNOLOG MX-LIG IES INC IES INC ANK SUPT PREFB OFF SHELF ORTHOTIC 76680 SHIRA SILVA MGMT&DAREN 1 [facility] [place] UXTR INC INC LXTR&/TRN K EA 15 BLOOD 73936 FAMILY FAMILY COUNT 1 CARE CARE COMPLETE ASSOCIATE ASSOCIATE AUTO&AUTO S S DIFRNTL WBC IAADIADOO 70353 FAMILY MULBERRY 1 CARE NEW STREPTOCO ASSOCIATE CCUS S GROUP A BLOOD 85169 FAMILY FAMILY COUNT 1 CARE CARE COMPLETE ASSOCIATE ASSOCIATE AUTO&AUTO S S DIFRNTL WBC BLOOD 59458 SHIRA SILVA OCCULT 1 [facility] PEROXIDAS INC INC E ACTV QUAL FECES 1-3 SPEC BLOOD 28380 FAMILY FAMILY COUNT 1 CARE CARE COMPLETE ASSOCIATE ASSOCIATE AUTO&AUTO S S DIFRNTL WBC IAADIADOO 13472 FAMILY ZEESHANBERRY 1 CARE NEW STREPTOCO [place] [address] SHIRA SILVA CLOSTRIDI 1 [facility] [place] [address] SHIRA SILVA ROTAVIRUS 1 [facility] INC INC IAADIADOO 98276 YAJAIRA 1 CARE R H STREPTOCO ASSOCIATE CCUS S GROUP A IAADIADOO 33944 FAMILY LISA Gordon 1 CARE STREPTOCO ASSOCIATE CCUS S GROUP A RADIOLOGI 09038 [facility] C EXAM 0 MEDICAL MARA CHEST 2 IMAGING VIEWS ASS FRONTAL&L ATERAL IAADIADOO 13599 FAMILY MULBERRY 0 CARE NEW STREPTOCO ASSOCIATE CCUS S GROUP A BLOOD 14723 FAMILY MULBERRY COUNT 0 CARE NEW COMPLETE ASSOCIATE AUTO&AUTO S DIFRNTL WBC ARTHROSCO 93503 [place] MICHOACANO PY ANKLE 0 MEDICAL ALLEN SURGICAL SERV DEBRIDEME FOUNDATIO NT LIMITED ANESTHESI 68757 [place] YADIRA A 0 MEDICAL JOSH ARTHROSCO SERVICES PIC PROCEDURE ANKLE & FOOT OTH LOCAL 8087 [facility]ERSIT UNIVERS 0 Y Y EXCISION/ HOSPITAL HOSPITAL DESTRUCTI ON LESION ANK JOINT IAADIADOO 62201 FAMILY LISA J 0 CARE STREPTOCO ASSOCIATE CCUS S GROUP A BLOOD 16275 FAMILY FAMILY COUNT 0 CARE CARE COMPLETE ASSOCIATE ASSOCIATE AUTO&AUTO S S DIFRNTL WBC RADEX 40042 [facility] ANKLE 0 Y Y [facility] MINIMUM 3 VIEWS 25 01948 LAB SHANI LAB SHANI HYDROXY 0 AMERIC AMERIC INCLUDES HOLDING HOLDING FRACTIONS IF PERFORMED THERAPEUT 53337 [facility] IC PX 1/> 0 Y Y [facility] EACH 15 MIN EXERCISES PHYSICAL 22706 [facility] 9 [facility] THER[facility] 99600 SHIRA SILVA IC PX 1/> 9 [facility] AREAS INC INC EACH 15 MIN EXERCISES APPL 07269 SHIRA SILVA MODALITY 9 [facility] 1/> AREAS INC INC ULTRASOUN D EA 15 MIN APPLICATI 89938 SHIRA SILVA ON 9 [facility] MODALITY INC INC 1/> AREAS HOT/COLD PACKS APPL 93249 SHIRA SILVA MODALITY 9 [facility] 1/> AREAS INC INC ELEC STIMJ UNATTENDE D RADEX 60517 [facility] [place] 9 MEDICAL ROLANDO COMPLETE IMAGING MINIMUM 3 ASSOCIATE VIEWS S APPL 22223 SHIRA SILVA MODALITY 9 [facility] 1/> AREAS INC INC ELEC STIMJ UNATTENDE D APPL 23774 SHIRA SILVA MODALITY 9 [facility] 1/> AREAS INC INC ULTRASOUN D EA 15 MIN APPLICATI 15112 SHIRA SILVA ON 9 [facility] MODALITY INC INC 1/> AREAS HOT/COLD PACKS THERAPEUT 02472 SHIRA SILVA IC PX 1/> 9 [facility] AREAS INC INC EACH 15 MIN EXERCISES THERAPEUT 73652 SHIRA SILVA IC PX 1/> 9 [facility] AREAS INC INC EACH 15 MIN EXERCISES APPL 09440 SHIRA SILVA MODALITY 9 [facility] 1/> AREAS INC INC ULTRASOUN D EA 15 MIN APPLICATI 44508 SHIRA SILVA ON 9 [facility] MODALITY INC INC 1/> AREAS HOT/COLD PACKS APPL 46387 SHIRA SILVA MODALITY 9 [facility] 1/> AREAS INC INC ELEC STIMJ UNATTENDE D BLOOD 39946 FAMILY OCONNOR, COUNT 9 CARE ALEKSANDR Walker COMPLETE ASSOCIATE AUTO&AUTO S DIFRNTL WBC APPL 79225 SHIRA SILVA MODALITY 9 [facility] 1/> AREAS INC INC ELEC STIMJ UNATTENDE D APPLICATI 07619 [facility]VA ON 9 [facility] MODALITY INC INC 1/> AREAS HOT/COLD PACKS APPL 19175 SH[facility] SILVA MODALITY 9 [facility]/> AREAS INC INC ULTRASOUN D EA 15 MIN PHYSICAL 74770 [facility] THERAPY 9 [facility] EVALUATIO INC INC N APPL 07061 SIHRA SILVA MODALITY 9 [facility] 1/> AREAS INC INC IONTOPHOR ESIS EA 15 MIN BLOOD 21068 YAJAIRA, COUNT 9 MARGARETH BALES COMPLETE ASSOCIATE AUTO&AUTO S DIFRNTL WBC INJECTION J2997 [facility] 9 Y [facility]ANS [facility] RECOMBINA NT 1 MG INITIAL 13008 [facility] OBSERVATI 9 Y Y ON HOSPITAL HOSPITAL CARE/DAY 30 MINUTES ARTHROSCO 17180 [facility] PY ELBOW 9 Y Y SURGICAL [facility] SYNOVECTO MY COMPLETE UNLISTED 30573 [facility] PROCEDURE 9 Y Y HOSPITAL HOSPITAL ARTHROSCO PY INJECTION J2270 [facility] MORPHINE 9 Y Y SULFATE [facility] UP TO 10 [place] [address] [facility] SURG 9 Y Y PATHOLOGY [facility] GROSS&SONU ROSCOPIC EXAM DECALCIFI 43669 [facility] CATION 9 Y Y PROCEDURE HOSPITAL HOSPITAL INJECTION J2405 [facility] H[facility] PER 1 MG UNCLASSIF J3490 [facility] IED DRUGS 9 Y HANS HOSPITAL INJECTION J3010 [facility] FENTANYL 9 Y Y CITRATE [facility] HOSPITAL 0.1 MG ANESTHESI 10770 MATEO GARRISON A 9 MEDICAL JULIETTE C OPEN/SURG SERVICES ARTHRS RADICAL PROC ELBOW RAD RESCJ 63993 MATEO CAM CAPSL 9 [facility] TISS&HTRT SERV PC BONE FOUNDATIO ELBW CONTRCT EXCISION 46465 MATEO CAM RADIAL 9 [facility] HEAD SERV FOUNDATIO INJECTION J2795 [facility] 9 Y Y [facility] HYDROCHLO RIDE 1 MG INJECTION J2175 [facility] 9 Y Y [facility] E [facility]CL PER 100 MG INSJ PRPH 80505 [facility] CVC W/O 9 Y Y [facility] 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 AGE 6 YR/> FACTOR 03153 [facility] INHIBITOR 9 Y Y [facility] B[facility] 36518 [facility] COUNT 9 Y Y [facility] AUTO&AUTO DIFRNTL WBC RADIOLOGI 48217 [facility] Giselle MELGOZA EXAM 9 Y OF CHICAN CHEST 2 [facility] FRONTAL&L ATERAL RADEX 43621 [facility] ELBOW 2 9 Y Y [facility] BLOOD 81155 FAMILY LISA, Heidi COUNT 9 CARE G COMPLETE ASSOCIATE AUTO&AUTO S DIFRNTL WBC APPL 03957 SHIRA SHIRA MODALITY 9 [facility] 1/> AREAS INC INC ULTRASOUN D EA 15 MIN THERAPEUT 50700 SHIRA HEARDON IC PX 1/> 9 [facility] AREAS INC INC EACH 15 MIN EXERCISES APPL 92443 SHIRA SHIRA MODALITY 9 [facility] 1/> AREAS INC INC IONTOPHOR ESIS EA 15 MIN PHYSICAL 21398 SHIRA SHIRA THERAPY 9 [facility] EVALUATIO INC INC N THERAPEUT 59247 SHIRA HEARDON IC PX 1/> 9 [facility] AREAS INC INC EACH 15 MIN EXERCISES APPL 05866 SHIRA SHIRA MODALITY 9 [facility] 1/> AREAS INC INC IONTOPHOR ESIS EA 15 MIN MANUAL 76234 SHIRA HEARDON THERAPY 9 [facility] TQS 1/> INC INC REGIONS EACH 15 MINUTES APPL 49391 SHIRA SILVA MODALITY 9 [facility] 1/> AREAS INC INC ULTRASOUN D EA 15 MIN RADIOLOGI 73024 Giselle RILEY 9 MEDICAL SERENITY N EXAMINATI SERV ON KNEE 3 FOUNDATIO VIEWS RADIOLOGI 63242 MATEO TOVAR C 9 MEDICAL SERENITY N EXAMINATI SERV ON KNEE FOUNDATIO 1/2 VIEWS MRI ANY 05283 ROLANDO C SYL, JT LOWER 9 SYL ROLANDO EXTREM W/O CONTRAST MATRL BLOOD 19714 FAMILY MULBERRY, COUNT 9 CARE ALEKSANDR T COMPLETE ASSOCIATE AUTO&AUTO S DIFRNTL WBC COLLECTIO 61666 FAMILY MULBERRY, N 9 CARE ALEKSANDR T CAPILLARY ASSOCIATE BLOOD S SPECIMEN RADIOLOGI 28897 SH[facility]A SILVA C 9 [facility] EXAMINATI INC INC ON KNEE 3 VIEWS BLOOD 89430 FAMILY MULBERRY, COUNT 9 CARE ALEKSANDR T COMPLETE ASSOCIATE AUTO&AUTO S DIFRNTL WBC COLLECTIO 97335 FAMILY MULBERRY, N 9 CARE ALEKSANDR T CAPILLARY ASSOCIATE BLOOD S SPECIMEN RADEX 45092 JAVEIRIT DIPTI, ELBOW 2 9 Y OF [facility] APPL 59785 SHIRA SILVA MODALITY 9 [facility] 1/> AREAS INC INC ELEC STIMJ UNATTENDE D APPLICATI 71774 SH[facility]A SILVA ON 9 [facility] MODALITY INC INC 1/> AREAS HOT/COLD PACKS THERAPEUT [address] [facility] SILVA IC PX 1/> 9 [facility] INC EACH 15 MIN EXERCISES THERAPEUT 46358 SHIRA SILVA IC PX 1/> 9 [facility] EACH 15 MIN EXERCISES APPLICATI 81781 [facility] SILVA ON 9 [facility] MODALITY INC INC 1/> AREAS HOT/COLD PACKS APPL 93769 SH[facility] SILVA MODALITY 9 [facility] 1/> AREAS INC INC ELEC STIMJ UNATTENDE D URNLS DIP 56405 FAMILY YAJAIRA, 9 CARE R NII STICK/TAB ASSOCIATE LET RGNT S NON-AUTO W/O MICRSCP CULTURE 09283 COMBINED COMBINED BACTERIAL 9 PHYSICIAN PHYSICIAN S LAB S LAB QUANTTATI VE COLONY COUNT URINE URNLS DIP 66682 FAMILY YAJAIRA, 9 CARE R NII STICK/TAB ASSOCIATE LET RGNT S NON-AUTO W/O MICRSCP APPLICATI 11968 SIHRA SILVA ON 9 [facility] MODALITY INC INC 1/> AREAS HOT/COLD PACKS APPL 89881 SHIRA SILVA MODALITY 9 [facility] 1/> AREAS INC INC ELEC STIMJ UNATTENDE D THERAPEUT 90039 SHIRA SILVA IC PX 1/> 9 [facility] INC INC EACH 15 MIN EXERCISES MANUAL 33192 SH[facility] SILVA THERAPY 9 [facility] TQS 1/> INC INC REGIONS EACH 15 MINUTES THERAPEUT 50973 SHIRA SILVA IC PX 1/> 9 [facility]AS INC INC EACH 15 MIN EXERCISES THERAPEUT 18281 SHIRA HEARDON IC PX /> 9 [facility]AS INC INC EACH 15 MIN EXERCISES MANUAL 13994 SH[facility] SILVA THERAPY 9 [facility] TQS 1/> INC INC REGIONS EACH 15 MINUTES APPL 06350 SH[facility] SILVA MODALITY 9 [facility] 1/> AREAS INC INC ELEC STIMJ UNATTENDE D APPLICATI 49604 [facility] SILVA ON 9 [facility] MODALITY INC INC 1/> AREAS HOT/COLD PACKS MANUAL 20993 SHIRA SILVA THERAPY 9 [facility] TQS 1/> INC INC REGIONS EACH 15 MINUTES THERAPEUT 78500 SHIRA SILVA IC PX 1/> 9 [facility] AREAS INC INC EACH 15 MIN EXERCISES THERAPEUT 03031 SHIRA HEARDON IC PX 1/> 9 [facility] AREAS INC INC EACH 15 MIN EXERCISES PHYSICAL 88217 SH[facility] SILVA THERAPY 9 [facility] EVALUATIO INC INC N ANKLE L1930 PROSTHETI PROSTHETI FOOT 8 C&ORTHOTI C&ORTHOTI ORTHOTIC C C PLASTIC/O ASSOCIATE ASSOCIATE MATStef S,LLC S,LLC PREFAB RADEX 35146 [facility] ANKLE 8 Y Y COMPLETE [facility] HOSPITAL MINIMUM 3 VIEWS HOSPITAL 99995 MATEO ARNNAIF, DISCHARGE 8 MEDICAL ANDRES DAY SERV MANAGEMEN FOUNDATIO T 30 MIN/< [place] [address] MATEO KING, ABDOMEN 8 MEDICAL MIKEY W/CONTRAS SERV T FOUNDATIO MATERIAL CT PELVIS 22697 [place] KING, 8 MEDICAL MIKEY W/CONTRAS SERV T FOUNDATIO MATERIAL INITIAL 94352 [place] OLY INPATIENT 8 MEDICAL , JANAE CONSULT SERV R NEW/ESTAB FOUNDATIO PT 55 MIN SBSQ 87378 [facility] 8 [facility] CARE/DAY SERV 25 FOUNDATIO MINUTES INITIAL 86283 [facility] 8 [facility] CARE/DAY SERV 70 FOUNDATIO MINUTES INFUSION 0011 [facility] 8 [place] [address] SHIRA HEARDON ABDOMEN 8 [facility] W/CONTRAS INC INC T MATERIAL 3D 82630 SHIRA SILVA RENDERING 8 [facility] INC INC W/INTERP& POSTPROC DIFF WORK STATION BLOOD 89573 FAMILY YAJAIRA, COUNT 8 CARE R NII COMPLETE ASSOCIATE AUTO&AUTO S DIFRNTL WBC CT PELVIS 34977 [facility] SILVA 8 [facility] W/CONTRAS INC INC T MATERIAL BLOOD 32481 FAMILY ANASTASIA, COUNT 8 CARE ALEKSANDR T COMPLETE ASSOCIATE AUTO&AUTO S DIFRNTL WBC BLOOD 39399 Heidi REDD COUNT 8 CARE G COMPLETE ASSOCIATE AUTO&AUTO S DIFRNTL WBC THROMBOPL 09737 COMBINED COMBINED ASTIN 8 PHYSICIAN PHYSICIAN TIME S LAB S LAB PARTIAL PLASMA/WH OLE BLOOD PROTHROMB 05808 Heidi REDD IN TIME 8 CARE G ASSOCIATE S Encounters Encounter Start End Date Code Location Performer Type Date OFFICE 65081 FAMILY MULBERRY OUTPATIEN 7 7 CARE T VISIT ASSOCIATE 25 S MINUTES OFFICE 07808 FAMILY ALYSSA OUTPATIEN 7 7 CARE T VISIT ASSOCIATE 15 S MINUTES OFFICE 73372 FAMILY WARE OUTPATIEN 7 7 CARE T VISIT ASSOCIATE 15 S MINUTES EMERGENCY 05666 SHIRA 7 7 [facility] DEPARTMEN INC T VISIT HIGH/URGE NT SEVERITY EMERGENCY 53581 [facility] PHYSICIAN U VISIT S, [facility] HIGH SEVERITY& THREAT [facility] SHIRA - 7 7 [facility] OUTPATIEN INC T OFFICE 78051 FAMILY YAJAIRA OUTPATIEN 7 7 CARE T VISIT ASSOCIATE 15 S MINUTES OFFICE 23114 FAMILY WARE OUTPATIEN 7 7 CARE T VISIT ASSOCIATE 15 S MINUTES OFFICE 28573 FAMILY YAJAIRA OUTPATIEN 7 7 CARE T VISIT ASSOCIATE 15 S MINUTES OFFICE 51153 FAMILY MULBERRY OUTPATIEN 6 6 CARE T VISIT ASSOCIATE 15 S MINUTES OFFICE 06933 FAMILY YAJAIRA OUTPATIEN 6 6 CARE T VISIT ASSOCIATE 15 S MINUTES EMERGENCY 44750 6 6 [facility] DEPARTMEN E T VISIT HOSPITALS HIGH/URGE NT SEVERITY [facility]OSPITAL - 6 6 [facility] OUTPATIEN E T HOSPITALS EMERGENCY 85544 [facility] 6 6 MEDICAL DEPARTMEN SERV T VISIT FOUNDATIO LOW/MODER N SEVERITY OFFICE 97077 [facility] HARP OUTPATIEN 6 6 PHYSICIAN WENDY T NEW 10 S GROUP MINUTES OFFICE 79849 FAMILY ISAMAR OUTPATIEN 6 6 CARE T VISIT ASSOCIATE 15 S MINUTES OFFICE 38889 FAMILY ISAMAR OUTPATIEN 6 6 CARE TAR T VISIT ASSOCIATE 15 S MINUTES OFFICE 49615 FAMILY ISAMAR OUTPATIEN 6 6 CARE TAR T VISIT ASSOCIATE 15 S MINUTES OFFICE 58257 FAMILY CROWDY OUTPATIEN 6 6 CARE CRI T VISIT ASSOCIATE 15 S MINUTES OFFICE 95315 FAMILY MULBERRY OUTPATIEN 6 6 CARE NEW T VISIT ASSOCIATE 15 S MINUTES OFFICE 57922 FAMILY ISAMAR OUTPATIEN 6 6 CARE TAR T VISIT ASSOCIATE 15 S MINUTES OFFICE 81197 FAMILY LISA OUTPATIEN 6 6 CARE PAUL T VISIT ASSOCIATE 15 S MINUTES OFFICE 25396 FAMILY ISAMAR OUTPATIEN 6 6 CARE TAR T VISIT ASSOCIATE 15 S MINUTES OFFICE 94462 FAMILY LISA OUTPATIEN 6 6 CARE PAUL T VISIT ASSOCIATE 15 S MINUTES OFFICE 82977 FAMILY LISA OUTPATIEN 6 6 CARE PAUL T VISIT ASSOCIATE 15 S MINUTES HOSPITAL UNIVERSIT - 6 6 Y OUTPATI HOSPITAL T EMERGENCY 40350 [place] ECKERLINE 6 6 MEDICAL JR ROSE DEPARTMEN SERV T VISIT FOUNDATIO MODERATE N SEVERITY OFFICE 66876 FAMILY YAJAIRA OUTPATIEN 6 6 CARE R H T VISIT ASSOCIATE 15 S MINUTES OFFICE 46176 FAMILY ISAMAR OUTPATIEN 6 6 CARE TAR T VISIT ASSOCIATE 15 S MINUTES EMERGENCY 82334 YAYA PAZ 6 6 PHYSICIAN U NAM DEPARTMEN S, PLLC T VISIT MODERATE SEVERITY OFFICE 49667 FAMILY LISA OUTPATIEN 6 6 CARE PAUL T VISIT ASSOCIATE 10 S MINUTES HOSPITAL SHIRA - 6 6 [facility] SH[facility] - 6 6 [facility] OUTPATIEN INC H[facility] SHIRA - 6 6 [facility] OUTPATIEN [facility] T OFFICE 38197 FAMILY LISA OUTPATIEN 6 6 CARE PAUL T VISIT ASSOCIATE 15 S MINUTES HOSPITAL SHIRA - 6 6 [facility]PATIEN [facility] T HOSPITAL SHIRA - 6 6 [facility] OUTPATIEN [facility] T HOSPITAL SHIRA - 6 6 [facility] OUTPATIEN [facility] T HOSPITAL SHIRA - 6 6 [facility]PATIEN [facility] SHIRA - 6 6 [facility] OUTPATIEN [facility] OFFICE 79548 FAMILY LISA OUTPATIEN 6 6 CARE PAUL T VISIT ASSOCIATE 15 S MINUTES HOSPITAL SHIRA - 6 6 [facility] OUTPATIEN [facility] EMERGENCY 13748 SHIRA 6 6 [facility] T VISIT MODERATE SEVERITY HOSPITAL SHIRA - 6 6 [facility] EMERGENCY 51244 YAYA PAZ 6 6 PHYSICIAN Julita [facility] S, PLL[facility] T VISIT HIGH/URGE NT SEVERITY OFFICE 40813 FAMILY LISA OUTPATIEN 6 6 CARE PAUL T VISIT ASSOCIATE 15 S MINUTES EMERGENCY 40655 YAYA MARTINEZ 6 6 PHYSICIAN JR [facility] S, PLL[facility] T VISIT HIGH/URGE NT SEVERITY OFFICE 13642 FAMILY YAJAIRA OUTPATIEN 6 6 CARE R H T VISIT ASSOCIATE 15 S MINUTES OFFICE 90860 FAMILY CROWDY OUTPATIEN 6 6 CARE CRI T VISIT ASSOCIATE 15 S MINUTES OFFICE 42015 FAMILY CROWDY OUTPATIEN 6 6 CARE CRI T VISIT ASSOCIATE 15 S MINUTES OFFICE 95320 FAMILY YAJAIRA OUTPATIEN 6 6 CARE R H T VISIT ASSOCIATE 15 S MINUTES OFFICE 27131 FAMILY CROWDY OUTPATIEN 6 6 CARE CRI T VISIT ASSOCIATE 15 S MINUTES OFFICE 76927 FAMILY LISA OUTPATIEN 5 5 CARE PAUL T VISIT ASSOCIATE 15 S MINUTES OFFICE 81662 FAMILY CROWDY OUTPATIEN 5 5 CARE CRI T VISIT ASSOCIATE 15 S MINUTES OFFICE 33459 FAMILY YAJAIRA OUTPATIEN 5 5 CARE R H T VISIT ASSOCIATE 15 S MINUTES OFFICE 35319 FAMILY CROWDY OUTPATIEN 5 5 CARE CRI T VISIT ASSOCIATE 15 S MINUTES OFFICE 60818 FAMILY CROWDY OUTPATIEN 5 5 CARE CRI T VISIT ASSOCIATE 15 S MINUTES OFFICE 94676 [facility] PETTEY OUTPATIEN 5 5 PHYSICIAN JAM T VISIT S GROUP 15 MINUTES OFFICE 23795 [facility] PETTEY OUTPATIEN 5 5 PHYSICIAN JAM T NEW 20 S GROUP MINUTES HOSPITAL SHIRA - 5 5 [facility] OUTPATIEN INC T EMERGENCY 40949 YAYA DE LA VEGA 5 5 PHYSICIAN SONU DEPARTMEN S, PLLC T VISIT MODERATE SEVERITY OFFICE 18722 FAMILY LISA OUTPATIEN 5 5 CARE PAUL T VISIT ASSOCIATE 25 S MINUTES OFFICE 93456 FAMILY YAJAIRA OUTPATIEN 5 5 CARE R H T VISIT ASSOCIATE 15 S MINUTES HOSPITAL UNIVERSIT - 5 5 Y OUTPATIEN HOSPITAL T OFFICE 25291 [place] MICHOACANO OUTPATIEN 5 5 MEDICAL ALLEN T VISIT SERV 25 FOUNDATIO MINUTES N OFFICE 79065 UNIVERSIT OUTPATIEN 5 5 Y T VISIT HOSPITAL 10 MINUTES OFFICE 27082 FAMILY YAJAIRA OUTPATIEN 5 5 CARE R H T VISIT ASSOCIATE 15 S MINUTES OFFICE 22962 FAMILY CROWDY OUTPATIEN 5 5 CARE CRI T VISIT ASSOCIATE 15 S MINUTES OFFICE 39851 FAMILY LISA J OUTPATIEN 5 5 CARE G T VISIT ASSOCIATE 15 S MINUTES EMERGENCY 05700 SHIRA DE LA VEGA 5 5 [facility] T VISIT P LOW/MODER SEVERITY EMERGENCY 83346 SHIRA 5 5 [facility] INC T VISIT MODERATE SEVERITY HOSPITAL [facility] - 5 5 [facility]EN INC T OFFICE 76676 FAMILY MULBERRY OUTPATIEN 4 4 CARE NEW T VISIT ASSOCIATE 15 S MINUTES OFFICE 29121 FAMILY YAJAIRA OUTPATIEN 4 4 CARE R H T VISIT ASSOCIATE 15 S MINUTES OFFICE 42147 FAMILY MULBERRY OUTPATIEN 4 4 CARE NEW T VISIT ASSOCIATE 15 S MINUTES OFFICE 18850 FAMILY OUTPATIEN 4 4 CARE T VISIT ASSOCIATE 15 S MINUTES OFFICE 02245 FAMILY YAJAIRA OUTPATIEN 4 4 CARE R H T VISIT ASSOCIATE 15 S MINUTES OFFICE 91094 LISA J OUTPATIEN 4 4 G T VISIT 15 MINUTES OFFICE 14824 MULBERRY MULBERRY OUTPATIEN 4 4 NEW NEW T VISIT 15 MINUTES OFFICE 06097 ABDULAZIZ ESTRADAON OUTPATIEN 4 4 ERIC ERIC T VISIT 15 MINUTES OFFICE 56971 MULBERRY MULBERRY OUTPATIEN 4 4 NEW NEW T VISIT 15 MINUTES OFFICE 82115 LISA Gordon LISA J OUTPATIEN 4 4 G G T VISIT 15 MINUTES HOSPITAL SHIRA - 4 4 [facility] OUTPATIEN INC T OFFICE 62014 FAMILY OUTPATIEN 3 3 CARE T VISIT ASSOCIATE 15 S MINUTES OFFICE 94603 MULBERRY MULBERRY OUTPATIEN 3 3 NEW NEW T VISIT 15 MINUTES OFFICE 41758 FAMILY LISA OUTPATIEN 3 3 CARE PAUL T VISIT ASSOCIATE 15 S MINUTES OFFICE 62750 [place] ROMOND OUTPATIEN 3 3 MEDICAL EDW T VISIT SERV 25 FOUNDATIO MINUTES N OFFICE 43257 YAJAIRA YAJAIRA OUTPATIEN 3 3 R H R H T VISIT 15 MINUTES OFFICE 99983 ABDULAZIZ CINTRON OUTPATIEN 3 3 ERIC ERIC T VISIT 15 MINUTES [facility] ABDULAZIZ OUTPATIEN 3 3 NURSE ERIC T VISIT PRACTITIO 15 NER GR MINUTES OFFICE 71968 LISA Gordon OUTPATIEN 3 3 G G T VISIT 10 MINUTES HOSPITAL SHIRA - 3 3 [facility]IEN [facility] T OFFICE 96766 LISA Gordon OUTPATIEN 3 3 G G T VISIT 15 MINUTES HOSPITAL SHIRA - 3 3 [facility] OUTPATIEN [facility] T OFFICE 65310 ABDULAZIZ CINTRON OUTPATIEN 3 3 ERIC ERIC T VISIT 15 MINUTES OFFICE 83995 MULBERRY MULBERRY OUTPATIEN 3 3 NEW NEW T VISIT 15 MINUTES OFFICE 95734 SHIRA SILVA OUTPATIEN 2 2 [facility] 10 MINUTES HOSPITAL [facility]ERS[facility] - 2 2 [facility] 2 2 [facility] UNIVERSIT - 2 2 [facility] EMERGENCY 35139 UNIVERSIT DEPT 2 2 Y VISIT HOSPITAL HIGH SEVERITY& THREAT [facility] EMERGENCY 63673 MATEO CALLOWAY 2 2 MEDICAL NEW DEPARTMEN SERV T VISIT FOUNDATIO MODERATE SEVERITY HOSPITAL SHIRA - 2 2 [facility] OUTPATIEN [facility] T OFFICE 00300 ABDULAZIZ CINTRON OUTPATIEN 2 2 ERIC ERIC T VISIT 15 MINUTES HOSPITAL UNIVERSIT - 2 2 Y [facility] T OFFICE 22790 BRENDA GUTIERREZ CONSULTAT 2 2 LUCIAN LUCIAN ION NEW/ESTAB PATIENT 40 MIN OFFICE 33222 CAM LEVY OUTPATIEN 2 2 SRI SRI T VISIT 25 MINUTES HOSPITAL UNIVERSIT - 2 2 Y [facility] T OFFICE 47058 FAMILY OUTPATIEN 2 2 CARE T VISIT ASSOCIATE 15 S MINUTES OFFICE 95073 ABDULAZIZ CINTRON OUTPATIEN 2 2 ERIC ERIC T VISIT 15 MINUTES OFFICE 24918 WARE WARE OUTPATIEN 2 2 KATIUSKA KATIUSKA T VISIT 15 MINUTES OFFICE 04079 LISA Gordon OUTPATIEN 2 2 T VISIT 15 MINUTES OFFICE 41641 LISA Gordon OUTPATIEN 2 2 T VISIT 15 MINUTES HOSPITAL SHIRA - 2 2 [facility] OUTPATIEN INC T OFFICE 32367 WARE WARE OUTPATIEN 2 2 KATIUSKA KATIUSKA T VISIT 15 MINUTES EMERGENCY 59094 SHIRA 2 2 [facility] DEPARTMEN INC T VISIT MODERATE SEVERITY HOSPITAL SHIRA - 2 2 [facility] OUTPATIEN INC T OFFICE 11184 FAMILY WARE OUTPATIEN 2 2 CARE KATIUSKA T VISIT ASSOCIATE 15 S MINUTES HOSPITAL SHIRA - 1 1 [facility] OUTPATIEN INC T OFFICE 47016 ABDULAZIZ CINTRON OUTPATIEN 1 1 ERIC ERIC T VISIT 15 MINUTES OFFICE 36571 KAMNAIF MARINE OUTPATIEN 1 1 YESI YESI T NEW 30 MINUTES OFFICE 82621 FAMILY MULBERRY OUTPATIEN 1 1 CARE NEW T VISIT ASSOCIATE 15 S MINUTES OFFICE 40292 FAMILY MULBERRY OUTPATIEN 1 1 CARE NEW T VISIT ASSOCIATE 15 S MINUTES OFFICE 65550 FAMILY MULBERRY OUTPATIEN 1 1 CARE NEW T VISIT ASSOCIATE 15 S MINUTES HOSPITAL SHIRA - 1 1 [facility] OUTPATIEN INC T OFFICE 84151 FAMILY YAJAIRA OUTPATIEN 1 1 CARE R H T VISIT ASSOCIATE 15 S MINUTES OFFICE 19330 FAMILY YAJAIRA OUTPATIEN 1 1 CARE R H T VISIT ASSOCIATE 15 S MINUTES OFFICE 12415 FAMILY LISA J OUTPATIEN 1 1 CARE T VISIT ASSOCIATE 15 S MINUTES OFFICE 88605 ABEBESMauricio CINTRON OUTPATIEN 1 1 NURSE ERIC T VISIT PRACTITIO 15 NER GR MINUTES OFFICE 29960 FAMILY MULBERRY OUTPATIEN 1 1 CARE NEW T VISIT ASSOCIATE 25 S MINUTES OFFICE 38418 MATEO RÍOS OUTPATIEN 1 1 MEDICAL ALLEN T VISIT SERV 15 FOUNDATIO MINUTES HOSPITAL SHIRA - 0 0 [facility] OUTPATIEN INC T OFFICE 57171 FAMILY LISA J OUTPATIEN 0 0 CARE T VISIT ASSOCIATE 15 S MINUTES OFFICE 44284 FAMILY YAJAIRA OUTPATIEN 0 0 CARE R H T VISIT ASSOCIATE 15 S MINUTES OFFICE 12081 FAMILY MULBERRY OUTPATIEN 0 0 CARE NEW T VISIT ASSOCIATE 15 S MINUTES HOSPITAL UNIVERSIT - 0 0 Y INPATIENT HOSPITAL OFFICE 28106 FAMILY LISA J OUTPATIEN 0 0 CARE T VISIT ASSOCIATE 15 S MINUTES OFFICE 11014 MATEO RÍOS OUTPATIEN 0 0 MEDICAL ALLEN T VISIT SERV 10 FOUNDATIO MINUTES OFFICE 16994 FAMILY MULBERRY OUTPATIEN 0 0 CARE NEW T VISIT ASSOCIATE 15 S MINUTES HOSPITAL UNIVERSIT - 0 0 Y [facility] T OFFICE 27911 JOHN CINTRON, OUTPATIEN 0 0 NURSE JOSÉ Stephens T VISIT PRACTITIO 15 NER GROUP MINUTES OFFICE 57834 FAMILY GONZALEZ, J OUTPATIEN 0 0 CARE G T VISIT ASSOCIATE 15 S MINUTES OFFICE 28603 FAMILY BRENNANEET, OUTPATIEN 0 0 CARE R NII T VISIT ASSOCIATE 15 S MINUTES OFFICE 08707 [facility] ABDULAZIZ, OUTPATIEN 0 0 NURSE JOSÉ Stephens T VISIT PRACTITIO 15 NER GROUP MINUTES OFFICE 64849 FAMILY BRENNANEET, OUTPATIEN 0 0 CARE R NII T VISIT ASSOCIATE 15 S MINUTES OFFICE 44848 FAMILY OCONNOR, OUTPATIEN 0 0 CARE ALEKSANDR T T VISIT ASSOCIATE 15 S MINUTES OFFICE 69702 FAMILY GONZALEZ, J OUTPATIEN 0 0 CARE G T VISIT ASSOCIATE 15 S MINUTES OFFICE 49091 MATEO GLORIAKAYLEEN, OUTPATIEN 0 0 MEDICAL EDWARD T VISIT SERV 15 FOUNDATIO MINUTES OFFICE 29334 FAMILY BRENNANEET, OUTPATIEN 0 0 CARE R NII T VISIT ASSOCIATE 15 S MINUTES HOSPITAL UNIVERSIT - 0 0 Y [facility] T OFFICE 73303 FAMILY BRENNANEET, OUTPATIEN 9 9 CARE R NII T VISIT ASSOCIATE 15 S MINUTES HOSPITAL UNIVERSIT - 9 9 Y [facility] SH[facility] - 9 9 [facility] OUTPATIEN [facility] SHIRA - 9 9 [facility] OUTPATIEN [facility] T OFFICE 40460 FAMILY OCONNOR, OUTPATIEN 9 9 CARE ALEKSANDR T T VISIT ASSOCIATE 15 S MINUTES HOSPITAL SHIRA - 9 9 [facility] OUTPATIEN INC T OFFICE 69659 FAMILY GATES OUTPATIEN 9 9 CARE R NII T VISIT ASSOCIATE 15 S MINUTES OFFICE 18191 JOHN CINTRON OUTPATIEN 9 9 NURSE JOSÉ Stephens T VISIT PRACTITIO 10 NER GROUP MINUTES OFFICE 31173 FAMILY OCONNOR OUTPATIEN 9 9 CARE ALEKSANDR T T VISIT ASSOCIATE 15 S MINUTES OFFICE 76463 SHIRA OUTPATIEN 9 9 [facility] T VISIT INC 10 MINUTES HOSPITAL SHIRA - 9 9 [facility] OUTPATIEN INC T HOME [facility], 9 9 HOME [facility] T [facility]ERS[facility] - 9 9 Y [facility] T HOME [facility], 9 9 HOME [facility] T [facility] UNIVERSIT - 9 9 Y [facility] T HOSPITAL UNIVERSIT - 9 9 Y [facility] T OFFICE 57274 MATEO CAM OUTPATIEN 9 9 MEDICAL BIMAL T VISIT SERV 15 FOUNDATIO MINUTES OFFICE 01222 Heidi GONZALEZ OUTPATIEN 9 9 CARE G T VISIT ASSOCIATE 15 S MINUTES OFFICE 22421 FAMILY GATES OUTPATIEN 9 9 CARE R NII T VISIT ASSOCIATE 15 S MINUTES OFFICE 40900 MATEO MCCORMICK OUTPATIEN 9 9 MEDICAL EDWARD T VISIT SERV 15 FOUNDATIO MINUTES HOSPITAL SH[facility]A - 9 9 [facility] OUTPATIEN INC T OFFICE 72860 [place] KACI, CONSULTBELEN 9 9 MEDICAL JULIETTE T ION SERV NEW/ESTAB FOUNDATIO PATIENT 40 MIN OFFICE 32826 FAMILY YAJAIRA, OUTPATIEN 9 9 CARE R NII T VISIT ASSOCIATE 15 S MINUTES OFFICE 76345 FAMILY MULBERRY, OUTPATIEN 9 9 CARE ALEKSANDR T T VISIT ASSOCIATE 15 S MINUTES OFFICE 67241 FAMILY YAJAIRA, OUTPATIEN 9 9 CARE R NII T VISIT ASSOCIATE 15 S MINUTES HOSPITAL [facility] - 9 9 [facility] INC T OFFICE 26714 FAMILY MULBERRY, OUTPATIEN 9 9 CARE ALEKSANDR T T VISIT ASSOCIATE 15 S MINUTES OFFICE 69538 FAMILY MULBERRY, OUTPATIEN 9 9 CARE ALEKSANDR T T VISIT ASSOCIATE 15 S MINUTES HOSPITAL UNIVERSIT - 9 9 Y [facility] T OFFICE 06445 ABEBESMauricio CINTRON, OUTPATIEN 9 9 NURSE JOSÉ Stephens T VISIT PRACTITIO 10 NER GROUP MINUTES HOSPITAL SHIRA - 9 9 [facility] OUTPAT[facility]EN INC T OFFICE 12299 FAMILY YAJAIRA, OUTPATIEN 9 9 CARE R NII T VISIT ASSOCIATE 15 S MINUTES OFFICE 28975 FAMILY YAJAIRA, OUTPATIEN 9 9 CARE R NII T VISIT ASSOCIATE 15 S MINUTES OFFICE 06194 FAMILY YAJAIRA, OUTPATIEN 9 9 CARE R NII T VISIT ASSOCIATE 15 S MINUTES HOSPITAL [facility] - 9 9 [facility] INC T OFFICE 28449 FAMILY YAJAIRA, OUTPATIEN 9 9 CARE R NII T VISIT ASSOCIATE 15 S MINUTES OFFICE 67242 MATEO MCCORMICK, OUTPATIEN 9 9 MEDICAL EDWARD T VISIT SERV 15 FOUNDATIO MINUTES OFFICE 00743 FAMILY YAJAIRA, OUTPATIEN 9 9 CARE R NII T VISIT ASSOCIATE 15 S MINUTES OFFICE 28045 FAMILY YAJAIRA, OUTPATIEN 8 8 CARE R NII T VISIT ASSOCIATE 10 S MINUTES OFFICE 87842 MATEO RÍOS ANG 8 8 MEDICAL ELENA J T VISIT SERV 10 FOUNDATIO MINUTES OFFICE 73857 BRI SAEEDPATIEN 8 8 CARE R NII T VISIT ASSOCIATE 15 S MINUTES OFFICE 25001 MATEO MCCORMICK BRIPATIPATRICA 8 8 MEDICAL EDWARD T VISIT SERV 15 FOUNDATIO MINUTES OFFICE 38148 MATEO RÍOS BRIPATIPATRICA 8 8 MEDICAL ELENA Gordon T VISIT SERV 15 FOUNDATIO MINUTES [facility] 8 8 Y [facility] - 8 8 [facility] OFF[facility] 03073 BRI SAEEDPATIEN 8 8 CARE R NII T VISIT ASSOCIATE 15 S MINUTES OFFICE 45002 BRI SELLERSPATIEN 8 8 CARE ALEKSANDR T T VISIT ASSOCIATE 15 S MINUTES OFFICE 07285 FAMILY OCONNOR BRIPATIEN 8 8 CARE ALEKSANDR T T VISIT ASSOCIATE 15 S MINUTES OFFICE 30110 FAMILY GONZALEZ Heidi OUTPATIEN 8 8 CARE G T VISIT ASSOCIATE 15 S MINUTES OFFICE 52677 FAMILY GATES OUTPATIEN 8 8 CARE R NII T VISIT ASSOCIATE 15 S MINUTES OFFICE 26364 MATEO CASTROKAYLEEN BRIPATIEN 8 8 MEDICAL EDWARD T VISIT SERV 15 FOUNDATIO MINUTES
--- OUTSIDE RECORDS SUMMARY | 2017-06-22 18:23 | External Medical Summary Rpt | CCD ---
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 SUPPLIES A4221 BIORX BIORX FOR MAINT 3 NON-INS RX INFUS CATH PER WK INJ F/ J7186 BIORX BIORX VWF CMPLX 3 PER FACTOR VIII IU BLOOD 29965 MULBERRY MULBERRY COUNT 3 NEW NEW COMPLETE AUTO&AUTO DIFRNTL WBC INJ AHF/ J7186 BIORX BIORX VWF CMPLX 2 PER FACTOR VIII IU SUPPLIES A4221 BIORX BIORX FOR MAINT 2 NON-INS RX INFUS CATH PER WK INJ AHF/ J7186 BIORX BIORX VWF CMPLX 2 PER FACTOR VIII IU RADEX 64738 [place] CHEPE ELBOW 2 MEDICAL AMBROSIO COMPLETE SERV MINIMUM 3 FOUNDATIO VIEWS N IIV3 47450 SHIRA SILVA VACCINE 2 [facility] VIRUS 0.5 ML DOSAGE IM USE APPLICATI 71759 SHIRA SILVA ON 2 [facility] MODALITY INC INC 1/> AREAS HOT/COLD PACKS E-STIM G0283 SHIRA SILVA 1/> AREAS 2 [facility] OTH THAN INC INC WND CARE PART TX PLAN APPL 29803 SHIRA SILVA MODALITY 2 [facility] 1/> AREAS INC INC ULTRASOUN D EA 15 MIN MANUAL 77724 SHIRA SHIRA THERAPY 2 [facility] TQS 1/> INC INC REGIONS EACH 15 MINUTES INJ AHF/ J7186 BIORX BIORX VWF CMPLX 2 PER FACTOR VIII IU APPL 18614 SHIRA SILVA MODALITY 2 [facility] 1/> AREAS INC INC ULTRASOUN D EA 15 MIN MANUAL 56118 SHIRA SILVA THERAPY 2 [facility] TQS 1/> INC INC REGIONS EACH 15 MINUTES APPLICATI 98339 SHIRA SILVA ON 2 [facility] MEM [...] INC WND CARE PART TX PLAN APPLICATI 60256 SHIRA SILVA ON 2 [facility] MODALITY INC INC 1/> AREAS HOT/COLD PACKS APPL 52283 SHIRA SILVA MODALITY 2 [facility] 1/> AREAS INC INC ULTRASOUN D EA 15 MIN MANUAL 56293 SHIRA SILVA THERAPY 2 [facility] TQS 1/> INC INC REGIONS EACH 15 MINUTES MANUAL 67831 SHIRA SILVA THERAPY 2 [facility] TQS 1/> INC INC REGIONS EACH 15 MINUTES APPLICATI 42549 SHIRA SILVA ON 2 [facility] MODALITY INC INC 1/> AREAS HOT/COLD PACKS E-STIM G0283 SHIRA SILVA 1/> AREAS 2 [facility] OTH THAN INC INC WND CARE PART TX PLAN APPL 26266 SHIRA SILVA MODALITY 2 [facility] 1/> AREAS INC INC ULTRASOUN D EA 15 MIN APPL 63365 SHIRA SILVA MODALITY 2 [facility] 1/> AREAS INC INC ULTRASOUN D EA 15 MIN MANUAL 52352 SHIRA SILVA THERAPY 2 [facility] TQS 1/> INC INC REGIONS EACH 15 MINUTES E-STIM G0283 SHIRA SILVA 1/> AREAS 2 [facility] OTH THAN INC INC WND CARE PART TX PLAN APPLICATI 14709 SHIRA SILVA ON 2 [facility] MODALITY INC INC 1/> AREAS HOT/COLD PACKS APPLICATI 69090 SHIRA SILVA ON 2 [facility] MODALITY INC INC 1/> AREAS HOT/COLD PACKS E-STIM G0283 SHIRA SILVA 1/> AREAS 2 [facility] OTH THAN INC INC WND CARE PART TX PLAN THERAPEUT 82197 SHIRA SILVA IC PX 1/> 2 [facility] AREAS INC INC EACH 15 MIN EXERCISES APPL 98830 SHIRA SILVA MODALITY 2 [facility] 1/> AREAS INC INC ULTRASOUN D EA 15 MIN MANUAL 57791 SHIRA SILVA THERAPY 2 [facility] TQS 1/> INC INC REGIONS EACH 15 MINUTES INJ AHF/ J7186 BIORX BIORX VWF CMPLX 2 PER FACTOR VIII IU PROTHROMB 21986 [facility] IN TIME 2 Y Y [facility] THER 26165 [facility] PROPH/DX 2 Y Y NJX IV [facility] PUSH SINGLE/1S T SBST/DRUG THROMBOPL 60862 [facility] ASTIN 2 Y Y TIME [facility] PARTIAL PLASMA/WH OLE BLOOD SEDIMENTA 90611 [facility] TION RATE 2 Y Y RBC [facility] AUTOMATED RADEX 94824 [place] MERHAR ELBOW 2 MEDICAL GAR COMPLETE SERV MINIMUM 3 FOUNDATIO VIEWS N C-REACTIV 22432 [facility] E PROTEIN 2 Y Y [facility] COLLECTIO 27903 [facility] N VENOUS 2 Y Y BLOOD [facility] VENIPUNCT URE INJECTION J2405 [facility] 2 Y Y [facility] ON HCL PER 1 MG BLOOD 47196 [facility] COUNT 2 Y Y COMPLETE [facility] AUTO&AUTO DIFRNTL WBC THERAPEUT 75330 [facility] IC 2 Y Y INJECTION HOSPITAL [facility] IV PUSH EACH NEW DRUG INJECTION J2270 [facility] MORPHINE 2 Y Y SULFATE [facility] UP TO 10 MG MANUAL 21004 SHIRA SILVA THERAPY 2 [facility] TQS 1/> INC INC REGIONS EACH 15 MINUTES APPLICATI 92329 SHIRA SILVA ON 2 [facility] HOSP MODALITY INC INC 1/> AREAS HOT/COLD PACKS PHYSICAL 09576 SHIRA SILVA THERAPY 2 [facility] HOSP EVALUATIO INC INC N PROTHROMB 93962 [facility] IN TIME 2 Y Y HOSPITAL HOSPITAL INJECTION J1170 [facility] 2 Y Y HYDROMORP [facility] KADY UP TO 4 MG RINGERS J7120 [facility] LACTATE 2 Y Y INFUSION [facility] UP TO 1000 CC ARTHRT 77845 CAM LEVY ELBOW 2 SRI SRI CAPSULAR EXCISION CAPSULAR RLS SPX INJECTION J2405 [facility] 2 Y Y [facility] ON HCL PER 1 MG PARTIAL 54859 CAM LEVY EXCISION 2 SRI SRI BONE OLECRANON PROCESS ARTHROSCO 93045 CAM LEVY PY ELBOW 2 SRI SRI SURGICAL [place] [address] [facility] CARLOS SURG 2 Y OF [facility]OLOGY [facility] [place] [facility] GROSS&SONU ROSCOPIC EXAM THROMBOPL 38511 [facility] ASTIN 2 Y Y TIME HOSPITAL HOSPITAL PARTIAL PLASMA/WH OLE BLOOD UNCLASSIF J3490 [facility] IED DRUGS 2 Y Y HOSPITAL HOSPITAL INJECTION J3010 [facility] FENTANYL 2 Y Y CITRATE [facility] 0.1 MG INJECTION J2710 [facility] 2 Y Y NEOSTIGMI [facility] NE METHYLSUL FATE UP TO 0.5 MG ANESTHESI 24440 [facility] REILL[facility] A ELBOW 2 LTH [place] ANESTHESI DIAGNOSTI A PSC C ARTHROSCO PIC BLOOD 46940 [facility] COUNT 2 Y Y COMPLETE HOSPITAL HOSPITAL AUTOMATED INJECTION J2270 [facility] MORPHINE 2 Y Y SULFATE [facility] UP TO 10 MG INJECTION J2250 [facility] 2 Y Y MIDAZOLAM [facility] HCL PER 1 MG ARTHROSCO 71966 CAM BROOKELEONORMOI PY ELBOW 2 SRI SRI SURGICAL SYNOVECTO MY COMPLETE INJ AHF/ J7186 BIORX BIORX VWF CMPLX 2 PER FACTOR VIII IU INJ [facility]/ J7186 BIORX BIORX VWF CMPLX 2 PER FACTOR VIII IU FACTOR J7190 BIORX BIORX VIII 2 ANTIHEMOP HILIC FACTOR HUMAN PER IU RADEX 70841 [place] CHEPE ELBOW 2 MEDICAL AMBROSIO COMPLETE SERV MINIMUM 3 FOUNDATIO VIEWS N FACTOR J7190 BIORX BIORX VIII 2 ANTIHEMOP HILIC FACTOR HUMAN PER IU INJ F/ J7186 BIORX BIORX VWF CMPLX 2 PER FACTOR VIII IU BLOOD 23801 [facility] WARE COUNT 2 [place] COMPLETE AUTO&AUTO DIFRNTL WBC INJ F/ J7186 BIORX BIORX VWF CMPLX 2 PER FACTOR VIII IU PROTHROMB 77586 LISA Gordon IN TIME 2 BLOOD 80093 LISA Gordon COUNT 2 COMPLETE AUTO&AUTO DIFRNTL WBC RADIOLOGI 74083 SHIRA Desai EXAM 2 [facility] CHEST 2 INC INC VIEWS FRONTAL&L ATERAL TRANSFERA 16255 LISA CAMARILLO ANT SE 2 ASPARTATE AMINO AST SGOT TRANSFERA 29300 LISA Gordon SE 2 ALANINE AMINO ALT [...] HILIC FACTOR HUMAN PER IU URNLS DIP 62556 WARE WARE 2 [place] STICK/TAB LET RGNT NON-AUTO W/O MICRSCP BLOOD 08961 WARE WARE COUNT 2 [place] COMPLETE AUTO&AUTO DIFRNTL WBC CULTURE 53861 COMBINED COMBINED BACTERIAL 2 PHYSICIAN PHYSICIAN S LA S LA QUANTTATI VE COLONY COUNT URINE THROMBOPL 97518 SHIRA SILVA ASTIN 2 [facility] TIME INC INC PARTIAL PLASMA/WH OLE BLOOD URNLS DIP 56458 SHIRA SILVA 2 [facility] STICK/TAB INC INC LET REAGENT AUTO MICROSCOP Y BLOOD 97944 SHIAR SILVA COUNT 2 [facility] COMPLETE INC INC AUTO&[place] [address] SYL SYL ABDOMEN & 2 MARA MARA PELVIS W/CONTRAS T MATERIAL LOCM Q9967 SHIRA SILVA 300-399 2 [facility] MG/ML INC INC IODINE CONCENTRA TION PER ML COMPREHEN 09743 SHIRA SILVA SIVE 2 [facility] METABOLIC INC INC PANEL PROTHROMB 74416 SHIRA RINALDI IN TIME 2 MEM HOS[facility] JR THO INC FACTOR J7190 BIORX BIORX VIII 2 ANTIHEMOP HILIC FACTOR HUMAN PER IU BLOOD 42348 FAMILY FAMILY COUNT 2 CARE CARE COMPLETE ASSOCIATE ASSOCIATE AUTO&AUTO S S DIFRNTL WBC FACTOR J7190 BIORX BIORX VIII 1 ANTIHEMOP HILIC FACTOR HUMAN PER IU ANK FT L1906 ADVANCED ADVANCED ORTHOS 1 TECHNOLOG TECHNOLOG MX-LIG IES INC IES INC ANK SUPT PREFB OFF SHELF ORTHOTIC 94236 SHIRA SILVA MGMT&DAREN 1 [facility] [place] UXTR INC INC LXTR&/TRN K EA 15 BLOOD 33669 FAMILY FAMILY COUNT 1 CARE CARE COMPLETE ASSOCIATE ASSOCIATE AUTO&AUTO S S DIFRNTL WBC IAADIADOO 27749 FAMILY MULBERRY 1 CARE NEW STREPTOCO ASSOCIATE CCUS S GROUP A BLOOD 24984 FAMILY FAMILY COUNT 1 CARE CARE COMPLETE ASSOCIATE ASSOCIATE AUTO&AUTO S S DIFRNTL WBC BLOOD 72443 SHIRA SILVA OCCULT 1 [facility] PEROXIDAS INC INC E ACTV QUAL FECES 1-3 SPEC BLOOD 18594 FAMILY FAMILY COUNT 1 CARE CARE COMPLETE ASSOCIATE ASSOCIATE AUTO&AUTO S S DIFRNTL WBC IAADIADOO 94490 FAMILY ZEESHANBERRY 1 CARE NEW STREPTOCO [place] [address] SHIRA SILVA CLOSTRIDI 1 [facility] [place] [address] SHIRA SILVA ROTAVIRUS 1 [facility] INC INC IAADIADOO 49658 YAJAIRA 1 CARE R H STREPTOCO ASSOCIATE CCUS S GROUP A IAADIADOO 67836 FAMILY LISA Gordon 1 CARE STREPTOCO ASSOCIATE CCUS S GROUP A RADIOLOGI 99917 [facility] C EXAM 0 MEDICAL MARA CHEST 2 IMAGING VIEWS ASS FRONTAL&L ATERAL IAADIADOO 34898 FAMILY MULBERRY 0 CARE NEW STREPTOCO ASSOCIATE CCUS S GROUP A BLOOD 73896 FAMILY MULBERRY COUNT 0 CARE NEW COMPLETE ASSOCIATE AUTO&AUTO S DIFRNTL WBC ARTHROSCO 72440 [place] MICHOACANO PY ANKLE 0 MEDICAL ALLEN SURGICAL SERV DEBRIDEME FOUNDATIO NT LIMITED ANESTHESI 02469 [place] YADIRA A 0 MEDICAL JOSH ARTHROSCO SERVICES PIC PROCEDURE ANKLE & FOOT OTH LOCAL 8087 [facility] 0 Y Y EXCISION/ HOSPITAL HOSPITAL DESTRUCTI ON LESION ANK JOINT IAADIADOO 24284 FAMILY LISA J 0 CARE STREPTOCO ASSOCIATE CCUS S GROUP A BLOOD 19985 FAMILY FAMILY COUNT 0 CARE CARE COMPLETE ASSOCIATE ASSOCIATE AUTO&AUTO S S DIFRNTL WBC RADEX 69144 [facility] ANKLE 0 Y Y [facility] MINIMUM 3 VIEWS 25 29664 LAB SHANI LAB SHANI HYDROXY 0 AMERIC AMERIC INCLUDES HOLDING HOLDING FRACTIONS IF PERFORMED THERAPEUT 52885 [facility] IC PX 1/> 0 Y Y [facility] EACH 15 MIN EXERCISES PHYSICAL 59859 [facility] 9 Y Y [facility] CHILDREN'S N THERAPEUT 85798 SHIRA SILVA IC PX 1/> 9 [facility] AREAS INC INC EACH 15 MIN EXERCISES APPL 29266 SHIRA SILVA MODALITY 9 [facility] 1/> AREAS INC INC ULTRASOUN D EA 15 MIN APPLICATI 44694 SHIRA SILVA ON 9 [facility] MODALITY INC INC 1/> AREAS HOT/COLD PACKS APPL 75430 SHIRA SILVA MODALITY 9 [facility] 1/> AREAS INC INC ELEC STIMJ UNATTENDE D RADEX 08776 [facility] SYL, ELBOW 9 MEDICAL ROLANDO COMPLETE IMAGING MINIMUM 3 ASSOCIATE VIEWS S APPL 09435 SHIRA SILVA MODALITY 9 [facility] 1/> AREAS INC INC ELEC STIMJ UNATTENDE D APPL 95042 SHIRA SILVA MODALITY 9 [facility] 1/> AREAS INC INC ULTRASOUN D EA 15 MIN APPLICATI 07716 SHIRA SILVA ON 9 [facility] MODALITY INC INC 1/> AREAS HOT/COLD PACKS THERAPEUT 22055 SHIRA SILVA IC PX 1/> 9 [facility] AREAS INC INC EACH 15 MIN EXERCISES THERAPEUT 39601 SHIRA SILVA IC PX 1/> 9 [facility] AREAS INC INC EACH 15 MIN EXERCISES APPL 02883 SHIRA SILVA MODALITY 9 [facility] 1/> AREAS INC INC ULTRASOUN D EA 15 MIN APPLICATI 37916 SHIRA SILVA ON 9 [facility] MODALITY INC INC 1/> AREAS HOT/COLD PACKS APPL 63343 SHIRA SILVA MODALITY 9 [facility] 1/> AREAS INC INC ELEC STIMJ UNATTENDE D BLOOD 57529 FAMILY OCONNOR, COUNT 9 CARE ALEKSANDR Walker COMPLETE ASSOCIATE AUTO&AUTO S DIFRNTL WBC APPL 93923 SHIRA SILVA MODALITY 9 [facility] 1/> AREAS INC INC ELEC STIMJ UNATTENDE D APPLICATI 60700 SHIRA SILVA ON 9 [facility] MODALITY INC INC 1/> AREAS HOT/COLD PACKS APPL 65437 SHIRA SILVA MODALITY 9 [facility] 1/> AREAS INC INC ULTRASOUN D EA 15 MIN PHYSICAL 98097 SHIRA SILVA THERAPY 9 [facility] EVALUATIO INC INC N APPL 52364 SHIRA SILVA MODALITY 9 [facility] 1/> AREAS INC INC IONTOPHOR ESIS EA 15 MIN BLOOD 47086 YAJAIRA, COUNT 9 MARGARETH BALES COMPLETE ASSOCIATE AUTO&AUTO S DIFRNTL WBC INJECTION J2997 [facility] 9 Y [facility] RECOMBINA NT 1 MG INITIAL 11597 [facility] OBSERVATI 9 Y Y ON HOSPITAL HOSPITAL CARE/DAY 30 MINUTES ARTHROSCO 74680 [facility] PY ELBOW 9 Y Y SURGICAL [facility] SYNOVECTO MY COMPLETE UNLISTED 68843 [facility] PROCEDURE 9 Y Y HOSPITAL HOSPITAL ARTHROSCO PY INJECTION J2270 [facility] MORPHINE 9 Y Y SULFATE [facility] UP [place] [address] [place] [address] [facility] SURG 9 Y Y PATHOLOGY [facility] GROSS&SONU ROSCOPIC EXAM DECALCIFI 66373 [facility] CATION 9 Y Y PROCEDURE [facility]PITAL HOSPITAL INJECTION J2405 [facility] PER 1 MG UNCLASSIF J3490 [facility] IED DRUGS 9 Y HANS HOSPITAL INJECTION J3010 [facility] FENTANYL 9 Y Y CITRATE [facility] 0.1 MG ANESTHESI 04296 MATEO GARRISON A 9 MEDICAL JULIETTE C OPEN/SURG SERVICES ARTHRS RADICAL PROC ELBOW RAD RESCJ 12779 MATEO CAM CAPSL 9 [facility] TISS&HTRT SERV PC BONE FOUNDATIO ELBW CONTRCT EXCISION 18279 MATEO CAM RADIAL 9 [facility] HEAD SERV FOUNDATIO INJECTION J2795 [facility] [address] Y [address] [facility] NE HYDROCHLO RIDE 1 MG INJECTION J2175 [facility] 9 Y Y [facility] E HCL PER 100 MG INSJ PRPH 06574 [facility] CVC W/O 9 Y Y [facility] PORT/FOOD BROKER AGE 6 YR/> FACTOR 99374 [facility] INHIBITOR 9 Y [facility] BLOOD 86937 [facility] COUNT 9 Y Y [facility] AUTO&AUTO DIFRNTL WBC RADIOLOGI 81998 [facility] Giselle MELGOZA EXAM 9 Y OF CHICAN CHEST 2 [facility] FRONTAL&L ATERAL RADEX 42227 [facility] ELBOW 2 9 Y Y [facility] BLOOD 20153 FAMILY LISA, Heidi COUNT 9 CARE G COMPLETE ASSOCIATE AUTO&AUTO S DIFRNTL WBC APPL 62978 SHIRA SHIRA MODALITY 9 [facility] 1/> AREAS INC INC ULTRASOUN D EA 15 MIN THERAPEUT 32007 SHIRA HEARDON IC PX 1/> 9 [facility] AREAS INC INC EACH 15 MIN EXERCISES APPL 15339 SHIRA SHIRA MODALITY 9 [facility] 1/> AREAS INC INC IONTOPHOR ESIS EA 15 MIN PHYSICAL 17427 SHIRA SHIRA THERAPY 9 [facility]OS[facility] EVALUATIO INC INC N THERAPEUT 77984 SHIRA HEARDON IC PX 1/> 9 [facility] AREAS INC INC EACH 15 MIN EXERCISES APPL 86570 SHIRA SHIRA MODALITY 9 [facility] 1/> AREAS INC INC IONTOPHOR ESIS EA 15 MIN MANUAL 95132 SHIRA HEARDON THERAPY 9 [facility]OS[facility] TQS 1/> INC INC REGIONS EACH 15 MINUTES APPL 34867 SHIRA SILVA MODALITY 9 [facility] H[facility]OS[facility] 1/> AREAS INC INC ULTRASOUN D EA 15 MIN RADIOLOGI 20497 Giselle RILEY 9 MEDICAL SERENITY N EXAMINATI SERV ON KNEE 3 FOUNDATIO VIEWS RADIOLOGI 07099 MATEO TOVAR C 9 MEDICAL SERENITY N EXAMINATI SERV ON KNEE FOUNDATIO 1/2 VIEWS MRI ANY 08452 ROLANDO C SYL, JT LOWER 9 SYL ROL[place] EXTREM W/O CONTRAST MATRL BLOOD 11429 FAMILY MULBERRY, COUNT 9 CARE ALEKSANDR T COMPLETE ASSOCIATE AUTO&AUTO S DIFRNTL WBC COLLECTIO 59325 FAMILY MULBERRY, N 9 CARE ALEKSANDR T CAPILLARY ASSOCIATE BLOOD S SPECIMEN RADIOLOGI 22770 SHIRA SILVA C 9 [facility] EXAMINATI INC INC ON KNEE 3 VIEWS BLOOD 43552 FAMILY MULBERRY, COUNT 9 CARE ALEKSANDR T COMPLETE ASSOCIATE AUTO&AUTO S DIFRNTL WBC COLLECTIO 47084 FAMILY MULBERRY, N 9 CARE ALEKSANDR T CAPILLARY ASSOCIATE BLOOD S SPECIMEN RADEX 89682 JAVIERIT DIPTI, ELBOW 2 9 Y OF [facility] APPL 06939 SHIRA SILVA MODALITY 9 [facility] H[facility]OS[facility] 1/> AREAS INC INC ELEC STIMJ UNATTENDE D APPLICATI 03279 SHIRA SILVA ON 9 [facility]OS[facility] MODALITY INC INC 1/> AREAS HOT/COLD PACKS THERAPEUT 19646 SHIRA SILVA IC PX 1/> 9 [facility] AREAS INC INC EACH 15 MIN EXERCISES THERAPEUT 80105 SHIRA SILVA IC PX 1/> 9 [facility] AREAS INC INC EACH 15 MIN EXERCISES APPLICATI 28348 SH[facility]A SILVA ON 9 [facility] MODALITY INC INC 1/> AREAS HOT/COLD PACKS APPL 90450 SH[facility] SILVA MODALITY 9 [facility] 1/> AREAS INC INC ELEC STIMJ UNATTENDE D URNLS DIP 17858 FAMILY YAJAIRA, 9 CARE R NII STICK/TAB ASSOCIATE LET RGNT S NON-AUTO W/O MICRSCP CULTURE 26811 COMBINED COMBINED BACTERIAL 9 PHYSICIAN PHYSICIAN S LAB S LAB QUANTTATI VE COLONY COUNT URINE URNLS DIP 90882 FAMILY YAJAIRA, 9 CARE R NII STICK/TAB ASSOCIATE LET RGNT S NON-AUTO W/O MICRSCP APPLICATI 45476 [facility] SILVA ON 9 [facility] MODALITY INC INC 1/> AREAS HOT/COLD PACKS APPL 83169 SHIRA SILVA MODALITY 9 [facility] 1/> AREAS INC INC ELEC STIMJ UNATTENDE D THERAPEUT 89126 SHIRA SILVA IC PX 1/> 9 [facility] AREAS INC INC EACH 15 MIN EXERCISES MANUAL 28333 SHIRA SILVA THERAPY 9 [facility] TQS 1/> INC INC REGIONS EACH 15 MINUTES THERAPEUT 06855 SHIRA SILVA IC PX 1/> 9 [facility] AREAS INC INC EACH 15 MIN EXERCISES THERAPEUT 76750 SHIRA HEARDON IC PX /> 9 [facility] AREAS INC INC EACH 15 MIN EXERCISES MANUAL 09939 SHIRA SILVA THERAPY 9 [facility] TQS 1/> INC INC REGIONS EACH 15 MINUTES APPL 33008 SHIRA SILVA MODALITY 9 [facility] 1/> AREAS INC INC ELEC STIMJ UNATTENDE D APPLICATI 12348 SHIRA SILVA ON 9 [facility] MODALITY INC INC 1/> AREAS HOT/COLD PACKS MANUAL 11691 SHIRA SILVA THERAPY 9 [facility] TQS 1/> INC INC REGIONS EACH 15 MINUTES THERAPEUT 52645 SHIRA SILVA IC PX 1/> 9 [facility] AREAS INC INC EACH 15 MIN EXERCISES THERAPEUT 96835 SHIRA HEARDON IC PX 1/> 9 [facility] AREAS INC INC EACH 15 MIN EXERCISES PHYSICAL 04882 SHIRA SILVA THERAPY 9 [facility] EVALUATIO INC INC N ANKLE L1930 PROSTHETI PROSTHETI FOOT 8 C&ORTHOTI C&ORTHOTI ORTHOTIC C C PLASTIC/O ASSOCIATE ASSOCIATE MATStef S,LLC S,LLC PREFAB RADEX 41756 [facility] PLANO ANKLE 8 Y Y COMPLETE [facility] MINIMUM 3 VIEWS [facility] [address]64 MATEO ARNNAIF, DISCHARGE 8 MEDICAL ANDRES DAY SERV MANAGEMEN FOUNDATIO T 30 MIN/< [place] [address] MATEO KING, ABDOMEN 8 MEDICAL MIKEY W/CONTRAS SERV T FOUNDATIO MATERIAL CT PELVIS 01248 [place], 8 MEDICAL MIKEY W/CONTRAS SERV T FOUNDATIO MATERIAL INITIAL 19497 [place] OLY INPATIENT 8 MEDICAL , JANAE CONSULT SERV R NEW/ESTAB FOUNDATIO PT 55 MIN SBSQ 79100 [facility] 8 [facility] CARE/DAY SERV 25 FOUNDATIO MINUTES INITIAL 22140 [facility] 8 [facility] CARE/DAY SERV 70 FOUNDATIO MINUTES INFUSION 0011 [facility] 8 [place] [address] SHIRA HEARDON ABDOMEN 8 [facility] W/CONTRAS INC INC T MATERIAL 3D 91126 SHIRA SILVA RENDERING 8 [facility] INC INC W/INTERP& POSTPROC DIFF WORK STATION BLOOD 92240 FAMILY YAJAIRA, COUNT 8 CARE R NII COMPLETE ASSOCIATE AUTO&AUTO S DIFRNTL WBC CT PELVIS 17374 [facility] SILVA 8 [facility] W/CONTRAS INC INC T MATERIAL BLOOD 27090 FAMILY ANASTASIA, COUNT 8 CARE ALEKSANDR T COMPLETE ASSOCIATE AUTO&AUTO S DIFRNTL WBC BLOOD 76879 Heidi REDD COUNT 8 CARE G COMPLETE ASSOCIATE AUTO&AUTO S DIFRNTL WBC THROMBOPL 88612 COMBINED COMBINED ASTIN 8 PHYSICIAN PHYSICIAN TIME S LAB S LAB PARTIAL PLASMA/WH OLE BLOOD PROTHROMB 25435 Heidi REDD IN TIME 8 CARE G ASSOCIATE S Encounters Encounter Start End Date Code Location Performer Type Date OFFICE 68325 FAMILY MULBERRY OUTPATIEN 7 7 CARE T VISIT ASSOCIATE 25 S MINUTES OFFICE 75726 FAMILY ALYSSA OUTPATIEN 7 7 CARE T VISIT ASSOCIATE 15 S MINUTES OFFICE 30058 FAMILY WARE OUTPATIEN 7 7 CARE T VISIT ASSOCIATE 15 S MINUTES EMERGENCY 18125 SHIRA 7 7 [facility] DEPARTMEN INC T VISIT HIGH/URGE NT SEVERITY EMERGENCY 21579 [facility]IAN U VISIT S, [facility] HIGH [facility]VERITY& THREAT [facility] SHIRA - 7 7 [facility] OUTPATIEN INC T OFFICE 22977 FAMILY YAJAIRA OUTPATIEN 7 7 CARE T VISIT ASSOCIATE 15 S MINUTES OFFICE 28383 FAMILY WARE OUTPATIEN 7 7 CARE T VISIT ASSOCIATE 15 S MINUTES OFFICE 97753 FAMILY YAJAIRA OUTPATIEN 7 7 CARE T VISIT ASSOCIATE 15 S MINUTES OFFICE 05033 FAMILY MULBERRY OUTPATIEN 6 6 CARE T VISIT ASSOCIATE 15 S MINUTES OFFICE 69818 FAMILY YAJAIRA OUTPATIEN 6 6 CARE T VISIT ASSOCIATE 15 S MINUTES EMERGENCY 38284 6 6 [facility] DEPARTMEN E T VISIT HOSPITALS HIGH/URGE NT SEVERITY [facility]OSP[facility] - 6 6 [facility] OUTPATI[facility] T HOSPITALS EMERGENCY 19870 [facility] 6 6 MEDICAL DEPARTMEN SERV T VISIT FOUNDATIO LOW/MODER N SEVERITY OFFICE 07005 [facility] HARP OUTPATIEN 6 6 PHYSICIAN WENDY T NEW 10 S GROUP MINUTES OFFICE 23984 FAMILY ISAMAR OUTPATIEN 6 6 CARE T VISIT ASSOCIATE 15 S MINUTES OFFICE 83488 FAMILY ISAMAR OUTPATIEN 6 6 CARE TAR T VISIT ASSOCIATE 15 S MINUTES OFFICE 79357 FAMILY ISAMAR OUTPATIEN 6 6 CARE TAR T VISIT ASSOCIATE 15 S MINUTES OFFICE 16708 FAMILY CROWDY OUTPATIEN 6 6 CARE CRI T VISIT ASSOCIATE 15 S MINUTES OFFICE 98289 FAMILY MULBERRY OUTPATIEN 6 6 CARE NEW T VISIT ASSOCIATE 15 S MINUTES OFFICE 48840 FAMILY ISAMAR OUTPATIEN 6 6 CARE TAR T VISIT ASSOCIATE 15 S MINUTES OFFICE 77418 FAMILY LISA OUTPATIEN 6 6 CARE PAUL T VISIT ASSOCIATE 15 S MINUTES OFFICE 06741 FAMILY ISAMAR OUTPATIEN 6 6 CARE TAR T VISIT ASSOCIATE 15 S MINUTES OFFICE 52895 FAMILY LISA OUTPATIEN 6 6 CARE PAUL T VISIT ASSOCIATE 15 S MINUTES OFFICE 19557 FAMILY LISA OUTPATIEN 6 6 CARE PAUL T VISIT ASSOCIATE 15 S MINUTES HOSPITAL UNIVERSIT - 6 6 Y OUTPATI HOSPITAL T EMERGENCY 67543 [place] ECKERLINE 6 6 MEDICAL JR ROSE DEPARTMEN SERV T VISIT FOUNDATIO MODERATE N SEVERITY OFFICE 93354 FAMILY YAJAIRA OUTPATIEN 6 6 CARE R H T VISIT ASSOCIATE 15 S MINUTES OFFICE 46450 FAMILY ISAMAR OUTPATIEN 6 6 CARE TAR T VISIT ASSOCIATE 15 S MINUTES EMERGENCY 71122 YAYA PAZ 6 6 PHYSICIAN U NAM DEPART[facility], PLL[facility] T VISIT MODERATE SEVERITY OFFICE 48506 FAMILY LISA OUTPATIEN 6 6 CARE PAUL T VISIT ASSOCIATE 10 S MINUTES HOSPITAL [facility] - 6 6 [facility] - 6 6 [facility] - 6 6 [facility] OUTPATIEN [facility] T OFFICE 07993 FAMILY LISA OUTPATIEN 6 6 CARE PAUL T VISIT ASSOCIATE 15 S MINUTES HOSPITAL [facility]A - 6 6 [facility] OUTPATIEN [facility] T HOSPITAL SHIRA [facility] 6 6 [facility] OUTPATIEN [facility] T HOSPITAL SHIRA - 6 6 [facility] OUTPATIEN [facility] T HOSPITAL SHIRA - 6 6 [facility] OUTPATIEN [facility] H[facility]PITAL SHIRA - 6 6 [facility] OUTPATIEN [facility] OFFICE 64112 FAMILY LISA OUTPATIEN 6 6 CARE PAUL T VISIT ASSOCIATE 15 S MINUTES HOSPITAL SHIRA - 6 6 [facility] OUTPATIEN [facility] EMERGENCY 43680 SHIRA 6 6 [facility] T VISIT MODERATE SEVERITY HOSPITAL SHIRA - 6 6 [facility] OUTPATIEN [facility] EMERGENCY 73982 YAYA PAZ 6 6 PHYSICIAN Julita [facility] T VISIT HIGH/URGE NT SEVERITY OFFICE 73144 FAMILY LISA OUTPATIEN 6 6 CARE PAUL T VISIT ASSOCIATE 15 S MINUTES EMERGENCY 08237 YAYA MARTINEZ 6 6 PHYSICIAN JR [facility] T VISIT HIGH/URGE NT SEVERITY OFFICE 79393 FAMILY YAJAIRA OUTPATIEN 6 6 CARE R H T VISIT ASSOCIATE 15 S MINUTES OFFICE 53640 FAMILY CROWDY OUTPATIEN 6 6 CARE CRI T VISIT ASSOCIATE 15 S MINUTES OFFICE 40622 FAMILY CROWDY OUTPATIEN 6 6 CARE CRI T VISIT ASSOCIATE 15 S MINUTES OFFICE 34349 FAMILY YAJAIRA OUTPATIEN 6 6 CARE R H T VISIT ASSOCIATE 15 S MINUTES OFFICE 12076 FAMILY CROWDY OUTPATIEN 6 6 CARE CRI T VISIT ASSOCIATE 15 S MINUTES OFFICE 49471 FAMILY LISA OUTPATIEN 5 5 CARE PAUL T VISIT ASSOCIATE 15 S MINUTES OFFICE 28235 FAMILY CROWDY OUTPATIEN 5 5 CARE CRI T VISIT ASSOCIATE 15 S MINUTES OFFICE 08010 FAMILY YAJAIRA OUTPATIEN 5 5 CARE R H T VISIT ASSOCIATE 15 S MINUTES OFFICE 23028 FAMILY CROWDY OUTPATIEN 5 5 CARE CRI T VISIT ASSOCIATE 15 S MINUTES OFFICE 23710 FAMILY CROWDY OUTPATIEN 5 5 CARE CRI T VISIT ASSOCIATE 15 S MINUTES OFFICE 29911 [facility] PETTEY OUTPATIEN 5 5 PHYSICIAN JAM T VISIT S GROUP 15 MINUTES OFFICE 80421 [facility] PETTEY OUTPATIEN 5 5 PHYSICIAN JAM T NEW 20 S GROUP MINUTES HOSPITAL [facility]A - 5 5 [facility] OUTPATIEN INC T EMERGENCY 72699 YAYA DE LA VEGA 5 5 PHYSICIAN SONU DEPARTMEN S, PLLC T VISIT MODERATE SEVERITY OFFICE 58866 FAMILY LISA OUTPATIEN 5 5 CARE PAUL T VISIT ASSOCIATE 25 S MINUTES OFFICE 12007 FAMILY YAJAIRA OUTPATIEN 5 5 CARE R H T VISIT ASSOCIATE 15 S MINUTES HOSPITAL UNIVERSIT - 5 5 Y OUTPATIEN HOSPITAL T OFFICE 30277 [place] MICHOACANO OUTPATIEN 5 5 MEDICAL ALLEN T VISIT SERV 25 FOUNDATIO MINUTES N OFFICE 30632 UNIVERSIT OUTPATIEN 5 5 Y T VISIT HOSPITAL 10 MINUTES OFFICE 19267 FAMILY YAJAIRA OUTPATIEN 5 5 CARE R H T VISIT ASSOCIATE 15 S MINUTES OFFICE 39364 FAMILY CROWDY OUTPATIEN 5 5 CARE CRI T VISIT ASSOCIATE 15 S MINUTES OFFICE 27885 FAMILY LISA J OUTPATIEN 5 5 CARE G T VISIT ASSOCIATE 15 S MINUTES EMERGENCY 27081 SHIRA DE LA VEGA 5 5 [facility] T VISIT P LOW/MODER SEVERITY EMERGENCY 54393 [facility]A 5 5 [facility] INC T VISIT MODERATE SEVERITY HOSPITAL SHIRA - 5 5 [facility] OUTPATIEN INC T OFFICE 44484 FAMILY MULBERRY OUTPATIEN 4 4 CARE NEW T VISIT ASSOCIATE 15 S MINUTES OFFICE 14889 FAMILY YAJAIRA OUTPATIEN 4 4 CARE R H T VISIT ASSOCIATE 15 S MINUTES OFFICE 06951 FAMILY MULBERRY OUTPATIEN 4 4 CARE NEW T VISIT ASSOCIATE 15 S MINUTES OFFICE 32715 FAMILY OUTPATIEN 4 4 CARE T VISIT ASSOCIATE 15 S MINUTES OFFICE 37239 FAMILY YAJAIRA OUTPATIEN 4 4 CARE R H T VISIT ASSOCIATE 15 S MINUTES OFFICE 91207 LISA J OUTPATIEN 4 4 G T VISIT 15 MINUTES OFFICE 86249 MULBERRY MULBERRY OUTPATIEN 4 4 NEW NEW T VISIT 15 MINUTES OFFICE 67934 ABDULAZIZ ESTRADAON OUTPATIEN 4 4 ERIC ERIC T VISIT 15 MINUTES OFFICE 00233 MULBERRY MULBERRY OUTPATIEN 4 4 NEW NEW T VISIT 15 MINUTES OFFICE 92990 LISA Gordon LISA J OUTPATIEN 4 4 G G T VISIT 15 MINUTES HOSPITAL SHIRA - 4 4 [facility] OUTPATIEN INC T OFFICE 68110 FAMILY OUTPATIEN 3 3 CARE T VISIT ASSOCIATE 15 S MINUTES OFFICE 12005 MULBERRY MULBERRY OUTPATIEN 3 3 NEW NEW T VISIT 15 MINUTES OFFICE 66582 FAMILY LISA OUTPATIEN 3 3 CARE PAUL T VISIT ASSOCIATE 15 S MINUTES OFFICE 96163 [place] ROMOND OUTPATIEN 3 3 MEDICAL EDW T VISIT SERV 25 FOUNDATIO MINUTES N OFFICE 75852 YAJAIRA YAJAIRA OUTPATIEN 3 3 R H R H T VISIT 15 MINUTES OFFICE 11947 ABDULAZIZ CINTRON OUTPATIEN 3 3 ERIC ERIC T VISIT 15 MINUTES HOSPITAL [facility] 72668 KMSF ABDULAZIZ OUTPATIEN 3 3 NURSE ERIC T VISIT PRACTITIO 15 NER GR MINUTES OFFICE 11072 LISA Gordon OUTPATIEN 3 3 G G T VISIT 10 MINUTES HOSPITAL SHIRA - 3 3 [facility] OUTPATIEN [facility] T OFFICE 59990 LISA Gordon OUTPATIEN 3 3 G G T VISIT 15 MINUTES HOSPITAL SHIRA - 3 3 [facility] OUTPATIEN [facility] T OFFICE 65180 ABDULAZIZ CINTRON OUTPATIEN 3 3 ERIC ERIC T VISIT 15 MINUTES OFFICE 13209 MULBERRY MULBERRY OUTPATIEN 3 3 NEW NEW T VISIT 15 MINUTES OFFICE 90260 SHIRA SILVA OUTPATIEN 2 2 [facility] 10 [facility]UTES HOSPITAL UNIVERSIT - [address] [facility] SHIRA - 2 2 [facility] OUTPATIEN [facility] UNIVERSIT - 2 2 Y [facility] EMERGENC[facility] 16327 UNIVERSIT DEPT 2 2 Y VISIT HOSPITAL HIGH SEVERITY& THREAT FUNCJ EMERGENCY 69832 MATEO CALLOWAY 2 2 MEDICAL NEW DEPARTMEN SERV T VISIT FOUNDATIO MODERATE SEVERITY HOSPITAL SHIRA - 2 2 [facility] OUTPATIEN [facility] T OFFICE 22763 ABDULAZIZ CINTRON OUTPATIEN 2 2 ERIC ERIC T VISIT 15 MINUTES HOSPITAL UNIVERSIT - 2 2 Y [facility] T OFFICE 09459 BRENDA GUTIERREZ CONSULTAT 2 2 LUCIAN LUCIAN ION NEW/ESTAB PATIENT 40 MIN OFFICE 34214 CAM LEVY OUTPATIEN 2 2 SRI SRI T VISIT 25 MINUTES HOSPITAL UNIVERSIT - 2 2 Y [facility] T OFFICE 61282 FAMILY OUTPATIEN 2 2 CARE T VISIT ASSOCIATE 15 S MINUTES OFFICE 99169 ABDULAZIZ CINTRON OUTPATIEN 2 2 ERIC ERIC T VISIT 15 MINUTES OFFICE 81806 WARE WARE OUTPATIEN 2 2 KATIUSKA KATIUSKA T VISIT 15 MINUTES OFFICE 47510 LISA Gordon OUTPATIEN 2 2 T VISIT 15 MINUTES OFFICE 61372 LISA Gordon OUTPATIEN 2 2 T VISIT 15 MINUTES HOSPITAL SHRIA - 2 2 [facility] OUTPATIEN INC T OFFICE 03218 WARE WARE OUTPATIEN 2 2 KATIUSKA KATIUSKA T VISIT 15 MINUTES EMERGENCY 32208 [facility]A 2 2 [facility] DEPARTMEN INC T VISIT MODERATE SEVERITY HOSPITAL SHIRA - 2 2 [facility] OUTPATIEN INC T OFFICE 37356 FAMILY WARE OUTPATIEN 2 2 CARE KATIUSKA T VISIT ASSOCIATE 15 S MINUTES HOSPITAL SHIRA - 1 1 [facility] OUTPATIEN INC T OFFICE 05418 ABDULAZIZ CINTRON OUTPATIEN 1 1 ERIC ERIC T VISIT 15 MINUTES OFFICE 75702 KAMNAIF MARINE OUTPATIEN 1 1 YESI YESI T NEW 30 MINUTES OFFICE 73399 FAMILY MULBERRY OUTPATIEN 1 1 CARE NEW T VISIT ASSOCIATE 15 S MINUTES OFFICE 24480 FAMILY MULBERRY OUTPATIEN 1 1 CARE NEW T VISIT ASSOCIATE 15 S MINUTES OFFICE 12991 FAMILY MULBERRY OUTPATIEN 1 1 CARE NEW T VISIT ASSOCIATE 15 S MINUTES HOSPITAL SHIRA - 1 1 [facility] OUTPATIEN INC T OFFICE 32436 FAMILY YAJAIRA OUTPATIEN 1 1 CARE R H T VISIT ASSOCIATE 15 S MINUTES OFFICE 04772 FAMILY YAJAIRA OUTPATIEN 1 1 CARE R H T VISIT ASSOCIATE 15 S MINUTES OFFICE 13927 FAMILY LISA J OUTPATIEN 1 1 CARE T VISIT ASSOCIATE 15 S MINUTES OFFICE 23160 ABEBESMauricio CINTRON OUTPATIEN 1 1 NURSE ERIC T VISIT PRACTITIO 15 NER GR MINUTES OFFICE 12453 FAMILY MULBERRY OUTPATIEN 1 1 CARE NEW T VISIT ASSOCIATE 25 S MINUTES OFFICE 14774 MATEO RÍOS OUTPATIEN 1 1 MEDICAL ALLEN T VISIT SERV 15 FOUNDATIO MINUTES HOSPITAL SHIRA - 0 0 [facility] OUTPATIEN INC T OFFICE 19064 FAMILY LISA J OUTPATIEN 0 0 CARE T VISIT ASSOCIATE 15 S MINUTES OFFICE 02239 FAMILY YAJAIRA OUTPATIEN 0 0 CARE R H T VISIT ASSOCIATE 15 S MINUTES OFFICE 31880 FAMILY MULBERRY OUTPATIEN 0 0 CARE NEW T VISIT ASSOCIATE 15 S MINUTES HOSPITAL UNIVERSIT - 0 0 Y INPATIENT HOSPITAL OFFICE 80995 FAMILY LISA J OUTPATIEN 0 0 CARE T VISIT ASSOCIATE 15 S MINUTES OFFICE 74740 MATEO RÍOS OUTPATIEN 0 0 MEDICAL ALLEN T VISIT SERV 10 FOUNDATIO MINUTES OFFICE 30262 FAMILY MULBERRY OUTPATIEN 0 0 CARE NEW T VISIT ASSOCIATE 15 S MINUTES HOSPITAL UNIVERSIT - 0 0 Y [facility] T OFFICE 45225 JOHN CINTRON, OUTPATIEN 0 0 NURSE JOSÉ Stephens T VISIT PRACTITIO 15 NER GROUP MINUTES OFFICE 15066 FAMILY GONZALEZ, J OUTPATIEN 0 0 CARE G T VISIT ASSOCIATE 15 S MINUTES OFFICE 68416 FAMILY BRENNANEET, OUTPATIEN 0 0 CARE R NII T VISIT ASSOCIATE 15 S MINUTES OFFICE 56230 [facility] [place]BDULAZIZ, OUTPATIEN 0 0 NURSE JOSÉ Stephens T VISIT PRACTITIO 15 NER GROUP MINUTES OFFICE 60036 FAMILY BRENNANEET, OUTPATIEN 0 0 CARE R NII T VISIT ASSOCIATE 15 S MINUTES OFFICE 05469 FAMILY OCONNOR, OUTPATIEN 0 0 CARE ALEKSANDR T T VISIT ASSOCIATE 15 S MINUTES OFFICE 02292 FAMILY GONZALEZ, J OUTPATIEN 0 0 CARE G T VISIT ASSOCIATE 15 S MINUTES OFFICE 24581 MATEO GLORIAKAYLEEN, OUTPATIEN 0 0 MEDICAL EDWARD T VISIT SERV 15 FOUNDATIO MINUTES OFFICE 23218 FAMILY BRENNANEET, OUTPATIEN 0 0 CARE R NII T VISIT ASSOCIATE 15 S MINUTES HOSPITAL UNIVERSIT - 0 0 Y [facility] T OFFICE 69513 FAMILY BRENNANEET, OUTPATIEN 9 9 CARE R NII T VISIT ASSOCIATE 15 S MINUTES HOSPITAL UNIVERSIT - [address] [facility] SHIRA - 9 9 [facility]EN [facility] SHIRA - 9 9 [facility] OUTPATIEN [facility] T OFFICE 01864 FAMILY OCONNOR, OUTPATIEN 9 9 CARE ALEKSANDR T T VISIT ASSOCIATE 15 S MINUTES HOSPITAL SHIRA - 9 9 [facility] OUTPATIEN INC T OFFICE 62383 FAMILY GATES OUTPATIEN 9 9 CARE R NII T VISIT ASSOCIATE 15 S MINUTES OFFICE 75945 JOHN CINTRON OUTPATIEN 9 9 NURSE JOSÉ Stephens T VISIT PRACTITIO 10 NER GROUP MINUTES OFFICE 89611 FAMILY OCONNOR OUTPATIEN 9 9 CARE ALEKSANDR T T VISIT ASSOCIATE 15 S MINUTES OFFICE 17515 SH[facility]A OUTPATIEN 9 9 [facility] T VISIT INC 10 MINUTES HOSPITAL SHIRA - 9 9 [facility] OUTPATIEN INC T HOME [facility], 9 9 HOME [facility] T [facility] UNIVERSIT - 9 9 Y [facility] T HOME [facility], 9 9 HOME [facility] T [facility] UNIVERSIT - 9 9 Y [facility] T HOSPITAL UNIVERSIT - 9 9 Y [facility] T OFFICE 78089 MATEO CAM OUTPATIEN 9 9 MEDICAL BIMAL T VISIT SERV 15 FOUNDATIO MINUTES OFFICE 87770 Heidi GONZALEZ OUTPATIEN 9 9 CARE G T VISIT ASSOCIATE 15 S MINUTES OFFICE 49599 FAMILY GATES OUTPATIEN 9 9 CARE R NII T VISIT ASSOCIATE 15 S MINUTES OFFICE 08377 MATEO MCCORMICK OUTPATIEN 9 9 MEDICAL EDWARD T VISIT SERV 15 FOUNDATIO MINUTES HOSPITAL SHIRA - 9 9 [facility] OUTPATIEN INC T OFFICE 75526 [place] KACI, CONSULTBELEN 9 9 MEDICAL JULIETTE T ION SERV NEW/ESTAB FOUNDATIO PATIENT 40 MIN OFFICE 86519 FAMILY YAJAIRA, OUTPATIEN 9 9 CARE R NII T VISIT ASSOCIATE 15 S MINUTES OFFICE 62926 FAMILY MULBERRY, OUTPATIEN 9 9 CARE ALEKSANDR T T VISIT ASSOCIATE 15 S MINUTES OFFICE 50650 FAMILY YAJAIRA, OUTPATIEN 9 9 CARE R NII T VISIT ASSOCIATE 15 S MINUTES HOSPITAL SHIRA - 9 9 [facility] OUTPATIEN INC T OFFICE 18850 FAMILY MULBERRY, OUTPATIEN 9 9 CARE ALEKSANDR T T VISIT ASSOCIATE 15 S MINUTES OFFICE 03390 FAMILY MULBERRY, OUTPATIEN 9 9 CARE ALEKSANDR T T VISIT ASSOCIATE 15 S MINUTES HOSPITAL UNIVERSIT - 9 9 Y [facility] T OFFICE 08946 ABEBESMauricio CINTRON, OUTPATIEN 9 9 NURSE JOSÉ Stephens T VISIT PRACTITIO 10 NER GROUP MINUTES HOSPITAL SHIRA - 9 9 [facility] H[facility] OUTPATIEN INC T OFFICE 84956 FAMILY YAJAIRA, OUTPATIEN 9 9 CARE R NII T VISIT ASSOCIATE 15 S MINUTES OFFICE 42076 FAMILY YAJAIRA, OUTPATIEN 9 9 CARE R NII T VISIT ASSOCIATE 15 S MINUTES OFFICE 45087 FAMILY YAJAIRA, OUTPATIEN 9 9 CARE R NII T VISIT ASSOCIATE 15 S MINUTES HOSPITAL SHIRA - 9 9 [facility] H[facility] OUTPATIEN INC T OFFICE 32999 FAMILY YAJAIRA, OUTPATIEN 9 9 CARE R NII T VISIT ASSOCIATE 15 S MINUTES OFFICE 63990 MATEO MCCORMICK, OUTPATIEN 9 9 MEDICAL EDWARD T VISIT SERV 15 FOUNDATIO MINUTES OFFICE 52940 FAMILY YAJAIRA, OUTPATIEN 9 9 CARE R NII T VISIT ASSOCIATE 15 S MINUTES OFFICE 71016 FAMILY YAJAIRA, OUTPATIEN 8 8 CARE R NII T VISIT ASSOCIATE 10 S MINUTES OFFICE 67234 MATEO RÍOS ANG 8 8 MEDICAL ELENA J T VISIT SERV 10 FOUNDATIO MINUTES OFFICE 64388 BRI SAEEDPATIEN 8 8 CARE R NII T VISIT ASSOCIATE 15 S MINUTES OFFICE 67438 MATEO MCCORMICK BRIPATIPATRICA 8 8 MEDICAL EDWARD T VISIT SERV 15 FOUNDATIO MINUTES OFFICE 43525 MATEO RÍOS BRIPATIPATRICA 8 8 MEDICAL ELENA Gordon T VISIT SERV 15 FOUNDATIO MINUTES [facility] 8 Y [facility] SHIRA - 8 8 [facility] OUTMCLAREN THUMB REGION OFFICE 22508 BRI SAEEDPATIEN 8 8 CARE R NII T VISIT ASSOCIATE 15 S MINUTES OFFICE 34566 BRI SELLERSPATIEN 8 8 CARE ALEKSANDR T T VISIT ASSOCIATE 15 S MINUTES OFFICE 13969 FAMILY OCONNOR BRIPATIEN 8 8 CARE ALEKSANDR T T VISIT ASSOCIATE 15 S MINUTES OFFICE 22071 FAMILY GONZALEZ Heidi OUTPATIEN 8 8 CARE G T VISIT ASSOCIATE 15 S MINUTES OFFICE 03328 FAMILY GATES OUTPATIEN 8 8 CARE R NII T VISIT ASSOCIATE 15 S MINUTES OFFICE 24985 MATEO CASTROKAYLEEN BRIPATIEN 8 8 MEDICAL EDWARD T VISIT SERV 15 FOUNDATIO MINUTES
--- OUTSIDE RECORDS SUMMARY | 2017-06-22 18:26 | External Medical Summary Rpt ---
Author Author [employer] Lovely, [employer] Organization [employer] Address Unknown Phone Unavailable Results Natriutietic peptide B [Mass/volume] in Serum or Plasma Observa Value Referen Units Interpr Notes Date tion ce etation Range Natriutie 0 - 100 pg/mL Normal No Apr 05 tic 2016 peptide B on in 10:00 AM source [Mass/vol data ume] in Serum or Plasma INR in Blood by Coagulation assay Observa Value Referen Units Interpr Notes Date ti ce etation Range IS PATIENT ON ANTICOAGULANTS? N PTT RESULTS MUST BE CALLED IF PT ON HEPARIN!!! Y INR in 0.9 - 1.1 No Normal INDICATIO Apr 05 Blood by informati N 2016 Coagulati on in 10:00 AM on assay source INR data RANGETHER APY FOR DVT, PE, ATRIAL FIB; 2.0 - 3.0PROPHY LAXIS FOR VTETHERAP Y FOR MECHANICA L HEART 2.5 - 3.5VALVE; PREVENTIO N OF SYSTEMICE MBOLISM SECONDARY TO AMI Prothromb 9.4 - SECONDS Normal No Apr 05 in time 11.8 informati 2016 (PT) in on in 10:00 AM Platelet source poor data plasma by Coagulati on assay Activated partial thrombplastin time (aPTT) in Platelet poor plasma by Coagulation assay Observa Value Referen Units Interpr Notes Date ti ce etation Range IS PATIENT ON ANTICOAGULANTS? N PTT RESULTS MUST BE CALLED IF PT ON HEPARIN!!! Y Activated 23.6 - SECONDS High No Apr 05 partial 34.0 alert informati 2016 thrombpla on in 10:00 AM stin time source (aPTT) data in Platelet poor plasma by Coagulati on assay CBC W Auto Differential panel in Blood Observa Value Referen Units Interpr Notes Date ti ce etation Range Basophils 0 - 0.2 K/MM3 Normal No Apr 05 inform2016 [#/volume on in 10:00 AM ] in source Blood by data Automated count Basophils 0.1 - 2.0 % Normal No Apr 05 informati 2016 leukocyte on in 10:00 AM s in source Blood by data Automated count Eosinophi 0.0 - 0.4 K/mm3 Normal No Apr 05 ls informati 2016 [#/volume on in 10:00 AM ] in source Blood by data Automated count Eosinophi 0.1 - % Normal No Apr 05 ls/100 12.0 informati 2016 leukocyte on in 10:00 AM [...] pg Normal No Apr 05 te mean informati 2016 corpuscul on in 10:00 AM ar source hemoglobi data n [Entitic mass] Erythrocy 31.8 - g/dl Normal No Apr 05 te mean 35.4 informati 2016 corpuscul on in 10:00 AM [...] - 9.3 % Normal No Apr 05 / informati 2016 leukocyte on in 10:00 AM s in source Blood by data Automated count Platelet 7.4 - fl Low No Apr 05 mean 10.4 2016 volume on in 10:00 AM [Entitic [...] MAY HAVE ADVERSE PSYCHO- SOCIAL IMPACT, [facility] NG.\.br \This report contain s patient informa tion that must be protect ed in accorda nce [...] tion that must be protect ed in accorda nce [...] data data Trepone Pending No No No \.br\Th Jul 03 ma informa informa informa is 2012 [...] cation method Neisser Pending No No No \.br\Jul 03 ia informa informa informa is 2012 [...]
--- OUTSIDE RECORDS SUMMARY | 2017-06-22 18:26 | External Medical Summary Rpt | CCD ---
Author Author , LOKI HOUSE Address Unknown Phone [email or web address] Immunization Name Date Rout CVX Reac Dose Comm Prov Is Faci e tion ent ider Refu lity Give sed n Tdap 07- 115 999 Hist H149 No H149 , 4-20 oric Adso 15 al rbed Info rmat ion - Sour ce Unsp ecif ied
--- OUTSIDE RECORDS SUMMARY | 2017-06-22 18:26 | External Medical Summary Rpt ---
[...] MAY HAVE ADVERSE PSYCHO- SOCIAL IMPACT, [facility] RETESTI NG.\.br \This report contain s [...] No No No No Jul 03 OR JEWLE informa informa informa informa 2012 RN tion [...]
--- OUTSIDE RECORDS SUMMARY | 2017-06-22 18:26 | External Medical Summary Rpt | CCD ---
Author Author , LOKI HOUSE Address Unknown Phone [email or web address] Immunization Name Date Rout CVX Reac Dose Comm Prov Is Faci e tion ent ider Refu lity Give sed n Tdap 07- 115 999 Hist H149 No H149 , 4-20 oric Adso 15 al rbed Info rmat ion - Sour ce Unsp ecif ied
--- OUTSIDE RECORDS SUMMARY | 2017-06-22 19:29 | External Medical Summary Rpt | CCD ---
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 ASSOCIATE AUTO&[place] [address] SHIRA SHIRA [facility]ION 6 [facility] THERAPY/P INC INC ROPHYLAXI S /DX 1ST TO 1 [place] [address] SHIRA SHIRA INFUSION 6 [facility] THERAPY INC [place] [address] SHIRA SHIRA INFUSION 6 [facility] THERAPY INC [place] [address] SHIRA SHIRA INFUSION 6 [facility] THERAPY/P INC INC ROPHYLAXI S /DX 1ST TO [place] [address] SHIRA SHIRA INFUSION 6 [facility] THERAPY/P INC INC ROPHYLAXI S /DX 1ST TO [place] [address] SHIRA HEARDON INFUSION 6 [facility] THERAPY INC INC PROPHYLAX IS/DX EA HOUR BASIC 47422 SHIRA SILVA METABOLIC 6 [facility] PANEL INC INC CALCIUM TOTAL DRUG 58886 SHIRA HEARDON SCREEN 6 [facility] QUANTITAT [place] [address] SHIRA SHIRA INFUSION 6 [facility] THERAPY/P INC INC ROPHYLAXI S /DX 1ST TO 1 [place] [address] SHIRA HEARDON INFUSION 6 [facility] THERAPY INC [place] [address] SHIRA HEARDON INFUSION 6 [facility] THERAPY INC [place] [address] SHIRA HEARDON INFUSION 6 [facility] THERAPY/P INC INC ROPHYLAXI S /DX 1ST TO 1 [place] [address] SHIRA HEARDON INFUSION 6 [facility] THERAPY/P INC INC ROPHYLAXI S /DX 1ST TO [place] [address] SHIRA HEARDON INFUSION 6 [facility] THERAPY INC [place] [address] SHIRA HEARDON INFUSION 6 [facility] THERAPY/P INC INC ROPHYLAXI S /DX 1ST TO 1 [place] [address] SHIRA HEARDON INFUSION 6 [facility] THERAPY INC [place] [address] SHIRA HEARDON INFUSION 6 [facility] THERAPY INC INC PROPHYLAX IS/DX EA HOUR DRUG 92934 SHIRA HEARDON SCREEN 6 [facility] QUANTITAT INC INC JEF VANCOMYCI N COLLECTIO 47519 SHIRA SILVA N VENOUS 6 [facility] [address] SHIRA HEARDON INFUSION 6 [facility] THERAPY/P INC INC ROPHYLAXI S /DX 1ST TO [place] [address] SHIRA HEARDON INFUSION 6 [facility]OS[facility] THERAPY/P INC INC ROPHYLAXI S /DX 1ST TO [place] [address] SHIRA SILVA INFUSION 6 [facility] THERAPY INC INC PROPHYLAX IS/DX EA HOUR BLOOD 31846 FAMILY FAMILY COUNT 6 CARE CARE COMPLETE ASSOCIATE ASSOCIATE AUTO&AUTO S S DIFRNTL WBC BLOOD 75347 SHIRA SILVA COUNT 6 [facility] COMPLETE INC INC AUTO&AUTO DIFRNTL WBC UNCLASSIF J3490 SHIRA SILVA IED DRUGS 6 [place] [address] SHIRA SILVA INFUSION 6 [facility] THERAPY INC INC PROPHYLAX IS/DX EA HOUR COMPREHEN 22541 SHIRA SILVA SIVE 6 [facility] METABOLIC INC INC PANEL BLOOD 05416 FAMILY FAMILY COUNT 6 CARE CARE COMPLETE ASSOCIATE ASSOCIATE AUTO&AUTO S S DIFRNTL WBC BLOOD 51157 FAMILY FAMILY COUNT 6 CARE CARE COMPLETE ASSOCIATE ASSOCIATE AUTO&AUTO S S DIFRNTL WBC IAADIADOO 72266 FAMILY CROWDY 6 CARE CRI STREPTOCO ASSOCIATE CCUS S GROUP A BLOOD 86985 FAMILY FAMILY COUNT 6 CARE CARE COMPLETE ASSOCIATE ASSOCIATE AUTO&AUTO S S DIFRNTL WBC BLOOD 27525 FAMILY FAMILY COUNT 5 CARE CARE COMPLETE ASSOCIATE ASSOCIATE AUTO&AUTO S S DIFRNTL WBC BLOOD 80174 FAMILY FAMILY COUNT 5 CARE CARE COMPLETE ASSOCIATE ASSOCIATE AUTO&AUTO S S DIFRNTL WBC ANKLE L4350 [employer] CONTROL 5 ORTHOSIS STIRRUP STYL RIGID PREFAB BLOOD 07814 FAMILY FAMILY COUNT 5 CARE CARE COMPLETE ASSOCIATE ASSOCIATE AUTO&AUTO S S DIFRNTL WBC BLOOD 76606 FAMILY FAMILY COUNT 5 CARE CARE COMPLETE ASSOCIATE ASSOCIATE AUTO&AUTO S S DIFRNTL WBC IM ADM 35856 [facility] PR[facility] SUBQ/IM HLTH DEPT HLTH DEPT NJXS 1 [place] V[facility] TDAP 27160 [facility]ACCINE [facility] YRS/> IM HLTH DEPT HLTH DEPT [place] COMPREHEN 74083 COMBINED COMBINED SIVE 5 PHYSICIAN PHYSICIAN METABOLIC S LA S LA PANEL CREATINE 38281 COMBINED COMBINED KINASE MB 5 PHYSICIAN PHYSICIAN FRACTION S LA S LA ONLY CYANOCOBA 30160 COMBINED COMBINED HARDY 5 PHYSICIAN PHYSICIAN VITAMIN S LA S LA B-12 MYOGLOBIN 47181 COMBINED COMBINED 5 [place] [address] COMBINED COMBINED TROPONIN 5 PHYSICIAN PHYSICIAN QUALITATI S LA S LA VE INJECTION J7185 BIORX BIORX FACTOR 5 VIII PER IU RADEX 76250 SHIRA SILVA WRIST 5 [facility] COMPLETE INC INC MINIMUM 3 VIEWS CAST Q4010 [facility] SUPPLIES 5 PHYSICIAN MIKA SHORT ARM S GROUP CAST ADULT FIBERGLAS S WRIST L3908 ADVANCED ADVANCED HAND 5 TECHNOLOG TECHNOLOG ORTHOSIS IES INC IES INC EXT CONTROL COCK-UP PREFAB RADEX 09331 SHIRA SILVA HAND 5 [facility] MINIMUM 3 INC INC VIEWS APPLICATI 00238 SHIRA SILVA ON SHORT 5 [facility] ARM INC INC SPLINT FOREARM-H AND STATIC US SOFT 53268 SHIRA SILVA TISSUE 5 [facility] HEAD & INC INC NECK REAL TIME IMGE DOCM APPLICATI 60191 [facility] ON CAST 5 PHYSICIAN MIKA ELBOW S GROUP FINGER SHORT ARM BLOOD 88959 FAMILY FAMILY COUNT 5 CARE CARE COMPLETE ASSOCIATE ASSOCIATE AUTO&AUTO S S DIFRNTL WBC BLOOD 21595 FAMILY FAMILY COUNT 5 CARE CARE COMPLETE ASSOCIATE ASSOCIATE AUTO&AUTO S S DIFRNTL WBC INJECTION J7185 [facility] BIORX FACTOR 5 VIII PER IU RADEX 34262 [facility] ANKLE [address] [facility] MINIMUM 3 VIEWS BLOOD 46725 FAMILY FAMILY COUNT 5 CARE CARE COMPLETE ASSOCIATE ASSOCIATE AUTO&AUTO S S DIFRNTL WBC IAADIADOO 50373 FAMILY YAJAIRA 5 CARE R H STREPTOCO ASSOCIATE CCUS S GROUP A INJECTION J7185 [facility]ORX FACTOR 5 VIII PER IU INJECTION J7185 BIORX BIORX FACTOR 5 VIII PER IU SIMPLE 24817 SHIRA SILVA REPAIR 5 [facility] F/E/E/N/L INC INC /M 2.5CM/< TDAP 32328 SHIRA SILVA VACCINE 7 5 [facility] YRS/> IM INC INC IM ADM 63556 SHIRA SILVA PRQ ID 5 [facility] SUBQ/IM INC INC NJXS 1 VACCINE BLOOD 76409 FAMILY FAMILY COUNT 4 CARE CARE COMPLETE ASSOCIATE ASSOCIATE AUTO&AUTO S S DIFRNTL WBC BLOOD 38557 FAMILY FAMILY COUNT 4 CARE CARE COMPLETE ASSOCIATE ASSOCIATE AUTO&AUTO S S DIFRNTL WBC IAADIADOO 17388 FAMILY YAJAIRA 4 CARE R H INFLUENZA ASSOCIATE S BLOOD 61975 FAMILY FAMILY COUNT 4 CARE CARE COMPLETE ASSOCIATE ASSOCIATE AUTO&AUTO S S DIFRNTL WBC INJECTION J7185 BIOR[facility] BIORX FACTOR 4 VIII PER IU BLOOD 17522 FAMILY FAMILY COUNT 4 CARE CARE COMPLETE ASSOCIATE ASSOCIATE AUTO&AUTO S S DIFRNTL WBC INJECTION J7185 BIORX BIORX FACTOR 4 VIII PER IU INJECTION J7185 BIORX BIORX FACTOR 4 VIII PER IU BLOOD 38900 FAMILY FAMILY COUNT 4 CARE CARE COMPLETE ASSOCIATE ASSOCIATE AUTO&AUTO S S DIFRNTL WBC ADD LW L2820 HARJIT SHAHNEY EXT ORTH 4 ORTHOPEDI ORTHOPEDI SFT CS CS INTERFCE MOLD BELW KNEE ADDITION L2210 HARJIT SHAHNEY LOWER 4 ORTHOPEDI ORTHOPEDI EXTREM CS CS DORSIFLEX ASSIST EA JOINT ADD LOW L2330 HARJIT SHAHNEY EXT LACER 4 ORTHOPEDI ORTHOPEDI MOLD PT CS CS MDL CSTM ORTHOTIC ONLY ANK FT L1940 HARJIT SHAHNEY ORTHOTIC 4 ORTHOPEDI ORTHOPEDI PLASTIC/O CS CS TH MATERIAL CUSTOM PAUL INJECTION J7185 BIORX BIORX FACTOR 4 VIII PER IU BLOOD 28951 LISA GONZALEZ J COUNT 4 G G COMPLETE AUTO&AUTO DIFRNTL WBC IAADIADOO 97989 MULBERRY MULBERRY 4 NEW NEW STREPTOCO CCUS GROUP A BLOOD 43371 MULBERRY MULBERRY COUNT 4 NEW NEW COMPLETE AUTO&AUTO DIFRNTL WBC BLOOD 04887 MULBERRY BALBAUGH COUNT 4 NEW AND COMPLETE AUTO&AUTO DIFRNTL WBC IAADIADOO 95774 MULBERRY MULBERRY 4 NEW NEW STREPTOCO CCUS GROUP A INJECTION J7185 BIORX BIORX FACTOR 4 VIII PER IU INJECTION J7185 BIORX BIORX FACTOR 4 VIII PER IU INJECTION J7185 BIORX BIORX FACTOR 4 VIII PER IU COLLECTIO 99979 LISA Gordon N 4 G G CAPILLARY BLOOD SPECIMEN BLOOD 10282 LISA Gordon COUNT 4 G G COMPLETE AUTO&AUTO DIFRNTL WBC NONINVASI 87749 LISA Gordon VE 4 G G EAR/PULSE OXIMETRY SINGLE DETER RADIOLOGI 44860 SHIRA SILVA C EXAM 4 [facility] CHEST 2 INC INC VIEWS FRONTAL&L ATERAL NEBULIZER E0570 [facility] HATCH WITH 4 HOME HOME COMPRESSO MEDICAL MEDICAL R EQUIPME EQUIPME ADMN SET A7003 YOUR YOUR SM VOL 4 PHARMACY PHARMACY [facility] PNEUMAT NEBULIZR DISPBL NONINVASI 20167 FAMILY SCOTT VE 3 CARE CARE EAR/PULSE ASSOCIATE ASSOCIATE OXIMETRY S S SINGLE DETER BLOOD 27386 MULBERRY MULBERRY COUNT 3 NEW NEW COMPLETE AUTO&AUTO DIFRNTL WBC BLOOD 51761 FAMILY GONZALEZ COUNT 3 CARE PAUL COMPLETE ASSOCIATE AUTO&AUTO S DIFRNTL WBC COLLECTIO 61177 FAMILY GONZALEZ N 3 CARE PAUL CAPILLARY [...] NON-INS RX INFUS CATH PER WK RADEX 67336 [facility] ANKLE 3 Y Y [facility] MINIMUM 3 VIEWS URNLS DIP 33875 LISA J LISA J 3 G G STICK/TAB LET RGNT NON-AUTO W/O MICRSCP RADEX 58684 SYL SYL SPINE 3 MARA MARA LUMBOSACR AL 2/3 VIEWS RADEX 97969 SHIRA SILVA SPINE 3 [facility] LUMBOSACR INC INC AL MINIMUM 4 VIEWS SUPPLIES A4221 BIORX BIORX FOR MAINT 3 NON-INS RX INFUS CATH PER WK INJECTION J7185 BIORX BIORX FACTOR 3 VIII PER IU ORTHOTIC 24088 SHIRA SILVA MGMT&DAREN 3 [facility] NJ UXTR INC INC LXTR&/TRN K EA 15 ELB ORTH L3760 ADVANCED ADVANCED W/ADJ 3 TECHNOLOG TECHNOLOG LOCK JNT IES INC IES INC PRFAB W/FIT&ADJ TYPE SUPPLIES A4221 BIORX BIORX FOR MAINT 3 NON-INS RX INFUS CATH PER WK INJ AHF/ J7186 BIORX BIORX VWF CMPLX 3 PER FACTOR VIII IU BLOOD 39033 MULBERRY MULBERRY COUNT 3 NEW NEW COMPLETE AUTO&AUTO DIFRNTL WBC INJ AHF/ J7186 BIORX BIORX VWF CMPLX 2 PER FACTOR VIII IU SUPPLIES A4221 BIORX BIORX FOR MAINT 2 NON-INS RX INFUS CATH PER WK INJ AHF/ J7186 BIORX BIORX VWF CMPLX 2 PER FACTOR VIII IU RADEX 92797 [place] CHEPE ELBOW 2 MEDICAL AMBROSIO COMPLETE SERV MINIMUM 3 FOUNDATIO VIEWS N IIV3 55162 SHIRA SILVA VACCINE 2 [facility] VIRUS 0.5 ML DOSAGE IM USE E-STIM G0283 SHIRA SILVA 1/> AREAS 2 [facility] OTH THAN INC INC WND CARE PART TX PLAN APPL 49952 SHIRA SHIRA MODALITY 2 [facility] 1/> AREAS INC INC ULTRASOUN D EA 15 MIN MANUAL 17937 SHIRAROCKY SILVA THERAPY 2 [facility] TQS 1/> INC INC REGIONS EACH 15 MINUTES APPLICATI 83292 SHIRA SILVA ON 2 [facility] MODALITY INC INC 1/> AREAS HOT/COLD PACKS INJ AHF/ J7186 BIORX BIORX VWF CMPLX 2 PER FACTOR VIII IU E-STIM G0283 SHIRA SHIRA 1/> AREAS 2 [facility] OTH THAN INC INC WND CARE PART TX PLAN APPLICATI 68534 SHIRA SILVA ON 2 [facility] MODALITY INC INC 1/> AREAS HOT/COLD PACKS APPL 90757 SHIRA SILVA MODALITY 2 [facility] 1/> AREAS INC INC ULTRASOUN D EA 15 MIN MANUAL 68234 SHRIA SHIRA THERAPY 2 [facility] TQS 1/> INC INC REGIONS EACH 15 MINUTES INJ AHF/ J7186 BIORX BIORX VWF CMPLX 2 PER FACTOR VIII IU E-STIM G0283 SHIRA HEARDON 1/> AREAS 2 [facility] OTH THAN INC INC WND CARE PART TX PLAN APPL 98657 SHIRA SHIRA MODALITY 2 [facility] 1/> AREAS INC INC ULTRASOUN D EA 15 MIN MANUAL 73967 SHIRA SILVA THERAPY 2 [facility] TQS 1/> INC INC REGIONS EACH 15 MINUTES APPLICATI 86359 SHIRA SILVA ON 2 [facility] MODALITY INC INC 1/> AREAS HOT/COLD PACKS APPLICATI 27307 SHIRA SILVA ON 2 [facility] MODALITY INC INC 1/> AREAS HOT/COLD PACKS MANUAL 67497 SHIRA SILVA THERAPY 2 [facility] TQS 1/> INC INC REGIONS EACH 15 MINUTES E-STIM G0283 SHIRA SILVA 1/> AREAS 2 [facility] OTH THAN INC INC WND CARE PART TX PLAN APPL 12943 SHIRA SILVA MODALITY 2 [facility] 1/> AREAS INC INC ULTRASOUN D EA 15 MIN APPL 06396 SHIRA SILVA MODALITY 2 [facility] 1/> AREAS INC INC ULTRASOUN D EA 15 MIN MANUAL 17029 SHIRA SILVA THERAPY 2 [facility] TQS 1/> INC INC REGIONS EACH 15 MINUTES E-STIM G0283 SHIRA SILVA 1/> AREAS 2 [facility] OTH THAN INC INC WND CARE PART TX PLAN APPLICATI 76094 SHIRA SILVA ON 2 [facility] MODALITY INC INC 1/> AREAS HOT/COLD PACKS APPLICATI 25421 SHIRA SILVA ON 2 [facility] MODALITY INC INC 1/> AREAS HOT/COLD PACKS E-STIM G0283 SHIRA SILVA 1/> AREAS 2 [facility] OTH THAN INC INC WND CARE PART TX PLAN APPL 56221 SHIRA SILVA MODALITY 2 [facility] 1/> AREAS INC INC ULTRASOUN D EA 15 MIN MANUAL 96576 SHIRA SILVA THERAPY 2 [facility] TQS 1/> INC INC REGIONS EACH 15 MINUTES THERAPEUT 46474 SHIRA SILVA IC PX 1/> 2 [facility] AREAS INC INC EACH 15 MIN EXERCISES INJ AHF/ J7186 BIORX BIORX VWF CMPLX 2 PER FACTOR VIII IU PROTHROMB 34867 [facility] IN TIME 2 Y Y [facility] THER 43471 [facility] PROPH/DX 2 Y Y NJX IV [facility] PUSH SINGLE/1S T SBST/DRUG C-REACTIV 75071 [facility] E PROTEIN [address] [facility] COLLECTIO 71057 [facility] N VENOUS [address] [facility] VENIPUNCT URE INJECTION J2405 [facility] 2 [facility] HCL PER 1 MG BLOOD 21994 [facility] COUNT 2 Y Y COMPLETE [facility]OSPITAL HOSPITAL AUTO&AUTO DIFRNTL WBC THERAPEUT 32284 [facility] IC 2 Y Y INJECTION HOSPITAL HOSPITAL IV PUSH EACH NEW DRUG INJECTION J2270 [facility] MORPHINE 2 Y [facility] UP TO 10 MG THROMBOPL 72932 [facility] ASTIN 2 Y Y TIME HOSPITAL HOSPITAL PARTIAL PLASMA/WH OLE BLOOD SEDIMENTA 94463 [facility] TION RATE 2 Y Y RBC HOSPITAL HOSPITAL AUTOMATED RADEX 89938 [place] MERHAR ELBOW 2 MEDICAL GAR COMPLETE SERV MINIMUM 3 FOUNDATIO VIEWS N MANUAL 88515 SHIRA SILVA THERAPY 2 [facility] TQS 1/> INC INC REGIONS EACH 15 MINUTES APPLICATI 66583 SHIRA SILVA ON 2 [facility] HOSP MODALITY INC INC 1/> AREAS HOT/COLD PACKS PHYSICAL 93770 SHIRA SILVA THERAPY 2 [facility] HOSP EVALUATIO INC INC N PROTHROMB 21771 [facility] IN TIME 2 Y Y HOSPITAL HOSPITAL INJECTION J1170 [facility] 2 Y Y HYDROMORP [facility] KADY UP TO 4 MG RINGERS J7120 [facility] LACTATE 2 Y Y [facility] UP TO 1000 CC ARTHRT 88647 CAM LEVY ELBOW 2 [facility] CAPSULAR EXCISION CAPSULAR RLS SPX BLOOD 60527 [facility] COUNT 2 Y Y COMPLETE HOSPITAL HOSPITAL AUTOMATED INJECTION J2270 [facility] MORPHINE 2 Y Y [facility] UP TO 10 MG INJECTION J2250 [facility] 2 Y Y [facility] HCL PER 1 MG ARTHROSCO 84299 CAM LEVY PY ELBOW 2 [facility] SURGICAL SYNOVECTO MY COMPLETE THROMBOPL 63486 [facility] ASTIN 2 Y Y TIME HOSPITAL HOSPITAL PARTIAL PLASMA/WH OLE BLOOD UNCLASSIF J3490 [facility] IED DRUGS 2 Y Y HOSPITAL HOSPITAL INJECTION J3010 [facility] FENTANYL 2 Y Y [facility] 0.1 MG INJECTION J2710 [facility] 2 Y [facility] METHYLSUL FATE UP TO 0.5 MG ANESTHESI 52941 [facility] A ELBOW 2 [facility] [place] ANESTHESI DIAGNOSTI A PSC C ARTHROSCO PIC INJECTION J2405 [facility] 2 Y Y [facility] ON HCL PER 1 MG PARTIAL 82412 CAM LEVY EXCISION 2 SRI SRI BONE OLECRANON PROCESS ARTHROSCO 04716 CAM LEVY PY ELBOW 2 SRI [place]RI [place] [address] [facility] SURG 2 Y OF [facility]OLOGY [place] [facility]&SONU ROSCOPIC EXAM INJ AHF/ J7186 BIORX BIORX VWF CMPLX 2 PER FACTOR VIII IU INJ AHF/ J7186 BIORX BIORX VWF CMPLX 2 PER FACTOR VIII IU FACTOR J7190 BIORX BIORX VIII 2 ANTIHEMOP HILIC FACTOR HUMAN PER IU RADEX 37792 [place] CHE[place] ELBOW 2 MEDICAL AMBROSIO COMPLETE SERV MINIMUM 3 FOUNDATIO VIEWS N INJ F/ J7186 BIORX BIORX VWF CMPLX 2 PER FACTOR VIII IU FACTOR J7190 BIORX BIORX VIII 2 ANTIHEMOP HILIC FACTOR HUMAN PER IU BLOOD 81311 [facility] COUNT 2 [place] COMPLETE AUTO&AUTO DIFRNTL WBC INJ F/ J7186 BIORX BIORX VWF CMPLX 2 PER FACTOR VIII IU BLOOD 15557 LISA Gordon COUNT 2 COMPLETE AUTO&AUTO DIFRNTL WBC RADIOLOGI 48747 SHIRA SILVA C EXAM 2 [facility] CHEST 2 INC INC VIEWS FRONTAL&L ATERAL TRANSFERA 77030 LISA CAMARILLO ANT SE 2 ASPARTATE AMINO AST SGOT TRANSFERA 90481 LISA Gordon SE 2 ALANINE AMINO ALT SGPT PROTHROMB 31866 LISA Gordon IN TIME 2 INJ AHF/ J7186 BIORX BIORX VWF CMPLX 2 PER FACTOR VIII IU FACTOR J7190 BIORX BIORX VIII 2 ANTIHEMOP HILIC FACTOR HUMAN PER IU SUPPLIES A4221 BIORX BIORX FOR MAINT 2 NON-INS RX INFUS CATH PER WK INJ AHF/ J7186 BIORX BIORX VWF CMPLX 2 PER FACTOR VIII IU FACTOR J7190 BIORX BIORX VIII 2 ANTIHEMOP HILIC FACTOR HUMAN PER IU BLOOD 48451 [place] [place] COUNT 2 [place] COMPLETE AUTO&AUTO DIFRNTL WBC CULTURE 29275 COMBINED COMBINED BACTERIAL 2 PHYSICIAN PHYSICIAN S LA S LA QUANTTATI VE COLONY COUNT URINE URNLS DIP 21365 WARE WARE 2 [place] STICK/TAB LET RGNT NON-AUTO W/O MICRSCP COMPREHEN 79727 SHIRA SILVA SIVE 2 [facility] METABOLIC INC INC PANEL THROMBOPL 14686 SHIRA SILVA ASTIN 2 [facility] TIME INC INC PARTIAL PLASMA/[place] [address] SYL SYL ABDOMEN & 2 MARA MARA PELVIS W/CONTRAS T MATERIAL LOCM Q9967 SHIRA SILVA 300-399 2 [facility] MG/ML INC INC IODINE CONCENTRA TION PER ML URNLS DIP 14125 SHIRA SILVA 2 [facility] STICK/TAB INC INC LET REAGENT AUTO MICROSCOP Y BLOOD 84992 [facility] COUNT 2 [facility] COMPLETE INC INC AUTO&AUTO DIFRNTL WBC PROTHROMB 07779 [facility] RINALDI IN TIME 2 [facility] JR THO INC FACTOR J7190 BIORX BIORX VIII 2 ANTIHEMOP HILIC FACTOR HUMAN PER IU BLOOD 50532 FAMILY FAMILY COUNT 2 CARE CARE COMPLETE ASSOCIATE ASSOCIATE AUTO&AUTO S S DIFRNTL WBC FACTOR J7190 BIORX BIORX VIII 1 ANTIHEMOP HILIC FACTOR HUMAN PER IU ANK FT L1906 [facility]ED [facility] ORTHOS 1 TECHNOLOG TECHNOLOG MX-LIG IES INC IES INC ANK SUPT PREFB OFF SHELF ORTHOTIC 56502 SH[facility] SILVA MGMT&DAREN 1 [facility] [place] UXTR INC INC LXTR&/TRN K EA 15 BLOOD 68061 FAMILY FAMILY COUNT 1 CARE CARE COMPLETE ASSOCIATE ASSOCIATE AUTO&AUTO S S DIFRNTL WBC IAADIADOO 44428 FAMILY MULBERRY 1 CARE NEW STREPTOCO ASSOCIATE CCUS S GROUP A BLOOD 23193 FAMILY FAMILY COUNT 1 CARE CARE COMPLETE ASSOCIATE ASSOCIATE AUTO&AUTO S S DIFRNTL WBC BLOOD 10689 FAMILY FAMILY COUNT 1 CARE CARE COMPLETE ASSOCIATE ASSOCIATE AUTO&AUTO S S DIFRNTL WBC IAADIADOO 77010 FAMILY MULBERRY 1 CARE NEW STREPTOCO ASSOCIATE CCUS S GROUP A BLOOD 70309 [facility] HEARDON OCCULT 1 [facility] PEROXIDAS INC INC E ACTV QUAL FECES 1-3 [place] [address] SHIRA SILVA CLOSTRIDI 1 [facility] [place] [address] SHIRA SHIRA ROTAVIRUS 1 [facility] INC INC IAADIADOO 86587 FAMILY EVERETTFLEET 1 CARE R H STREPTOCO ASSOCIATE CCUS S GROUP A IAADIADOO 72425 FAMILY LISA Gordon 1 CARE STREPTOCO ASSOCIATE CCUS S GROUP A RADIOLOGI 98411 [facility] C EXAM 0 MEDICAL MARA CHEST 2 IMAGING VIEWS ASS FRONTAL&L ATERAL IAADIADOO 33988 FAMILY MULBERRY 0 CARE NEW STREPTOCO ASSOCIATE CCUS S GROUP A BLOOD 79711 FAMILY MULBERRY COUNT 0 CARE NEW COMPLETE ASSOCIATE AUTO&AUTO S DIFRNTL WBC ARTHROSCO 76173 [place] [facility] PY ANKLE 0 MEDICAL ALLEN SURGICAL SERV DEBRIDEME FOUNDATIO NT LIMITED ANESTHESI 90244 MATEO YADIRA A 0 MEDICAL JOSH ARTHROSCO SERVICES PIC PROCEDURE ANKLE & FOOT OTH LOCAL 5487 UNIVERS UNIVERS 0 Y Y EXCISION/ HOSPITAL HOSPITAL DESTRUCTI ON LESION ANK JOINT IAADIADOO 84111 LISA J 0 CARE STREPTOCO ASSOCIATE CCUS S GROUP A BLOOD 70877 FAMILY FAMILY COUNT 0 CARE CARE COMPLETE ASSOCIATE ASSOCIATE AUTO&AUTO S S DIFRNTL WBC RADEX 40961 [facility] ANKLE 0 Y Y [facility] MINIMUM 3 VIEWS 25 97698 LAB [facility] LAB SHANI HYDROXY 0 AMERIC AMERIC INCLUDES HOLDING HOLDING FRACTIONS IF PERFORMED THERAPEUT 99210 [facility] IC PX 1/> 0 Y Y [facility] EACH 15 MIN EXERCISES PHYSICAL 60645 [facility] 9 Y Y [facility] THER[facility] 77927 SHIRA SILVA IC PX 1/> 9 [facility] AREAS INC INC EACH 15 MIN EXERCISES APPL 63366 [facility] SILVA MODALITY 9 [facility] 1/> AREAS INC INC ELEC STIMJ UNATTENDE D APPL 69966 [facility] SILVA MODALITY 9 [facility] 1/> AREAS INC INC ULTRASOUN D EA 15 MIN APPLICATI 76647 [facility]VA ON 9 [facility] MODALITY INC INC 1/> AREAS HOT/COLD PACKS APPLICATI 09788 [facility] SILVA ON 9 [facility] MODALITY INC INC 1/> AREAS HOT/COLD PACKS APPL 20006 [facility] SILVA MODALITY 9 [facility] 1/> AREAS INC INC ULTRASOUN D EA 15 MIN RADEX 04182 [facility] [place] 9 MEDICAL [place]OL[place] COMPLETE IMAGING MINIMUM 3 ASSOCIATE VIEWS S APPL 74305 [facility] SILVA MODALITY 9 [facility] 1/> AREAS INC INC ELEC STIMJ UNATTENDE D THERAPEUT 16899 SHIRA SILVA IC PX 1/> 9 [facility] AREAS INC INC EACH 15 MIN EXERCISES THERAPEUT 65224 SHIRA SILVA IC PX 1/> 9 [facility] AREAS INC INC EACH 15 MIN EXERCISES APPL 16006 [facility] SILVA MODALITY 9 [facility] 1/> AREAS INC INC ELEC STIMJ UNATTENDE D APPL 96864 [facility] SILVA MODALITY 9 [facility] 1/> AREAS INC INC ULTRASOUN D EA 15 MIN APPLICATI 28608 [facility] SILVA ON 9 [facility] MODALITY INC INC 1/> AREAS HOT/COLD PACKS APPLICATI 04548 [facility] SILVA ON 9 [facility] MODALITY INC INC 1/> AREAS HOT/COLD PACKS APPL 99512 [facility] SILVA MODALITY 9 [facility] 1/> AREAS INC INC ULTRASOUN D EA 15 MIN APPL 97584 [facility] SILVA MODALITY 9 [facility] 1/> AREAS INC INC ELEC STIMJ UNATTENDE D PHYSICAL 87131 SHIRA [facility]Y 9 [facility] EVALUATIO INC INC N APPL 13549 SHIRA [facility]VA MODALITY 9 [facility] 1/> AREAS INC INC IONTOPHOR ESIS EA 15 MIN BLOOD 92014 FAMILY ZEESHANBERRY, COUNT 9 CARE ALEKSANDR Walker COMPLETE ASSOCIATE AUTO&AUTO S DIFRNTL WBC BLOOD 88745 FAMILY YAJAIRA, COUNT 9 CARE Deneen BALES COMPLETE ASSOCIATE AUTO&AUTO S DIFRNTL WBC INITIAL 99431 [facility] OBSERVATI 9 Y Y ON HOSPITAL HOSPITAL CARE/DAY 30 MINUTES INJECTION J2997 [facility] 1 MG UNCLASSIF J3490 [facility] IED DRUGS 9 Y HANS HOSPITAL INJECTION J3010 [facility] FENTANYL [address] [facility] 0.1 MG ANESTHESI 28269 Reid ZIEGLER 9 MEDICAL JULIETTE Desai OPEN/SURG SERVICES ARTHRS RADICAL PROC ELBOW ARTHROSCO 77479 [facility] PY ELBOW 9 Y Y SURGICAL HOSPITAL HOSPITAL SYNOVECTO MY COMPLETE UNLISTED 29667 [facility] PROCEDURE 9 Y Y HOSPITAL HOSPITAL ARTHROSCO PY INJECTION J2270 [facility] MORPHINE 9 Y Y SULFATE [facility] H[facility] UP TO [place] [address] [facility] SURG [address] [facility] GROSS&SONU ROSCOPIC EXAM DECALCIFI 75574 [facility] CATION 9 Y Y PROCEDURE HOSPITAL HOSPITAL INJECTION J2405 [facility] 9 Y Y [facility] ON HCL PER 1 MG INJECTION J2795 [facility] 9 Y Y [facility] HYDROCHLO RIDE 1 MG INJECTION J2175 [facility] 9 Y [facility] 100 MG RAD RESCJ 83020 MATEO CAM CAPSL 9 [facility] TISS&HTRT SERV PC BONE FOUNDATIO ELBW CONTRCT EXCISION 68750 MATEO CAM RADIAL 9 [facility] FOUNDATIO BLOOD 09719 [facility] COUNT 9 Y Y [facility] AUTO&AUTO DIFRNTL WBC RADIOLOGI 94473 Giselle BRICEÑO EXAM 9 [facility] CHEST 2 [facility] FRONTAL&L ATERAL FACTOR 88522 [facility] INHIBITOR 9 Y Y [facility] INS PRPH 62886 [facility] CVC W/O 9 Y Y [facility] HOSPITAL PORT/MANAGER ED AGE 6 YR/> RADEX 55916 [facility] ELBOW 2 9 Y Y [facility] BLOOD 64976 FAMILY LISA, J COUNT 9 CARE G COMPLETE ASSOCIATE AUTO&AUTO S DIFRNTL WBC APPL 19535 [facility] SILVA MODALITY 9 [facility] 1/> AREAS INC INC IONTOPHOR ESIS EA 15 MIN THERAPEUT 20693 SHIRA SILVA IC PX 1/> 9 [facility] AREAS INC INC EACH 15 MIN EXERCISES APPL 08150 SHIRA SILVA MODALITY 9 [facility] 1/> AREAS INC INC ULTRASOUN D EA 15 MIN MANUAL 20322 SHIRA SILVA THERAPY 9 [facility] TQS 1/> INC INC REGIONS EACH 15 MINUTES APPL 01764 SHIRA SILVA MODALITY 9 [facility] 1/> AREAS INC INC ULTRASOUN D EA 15 MIN PHYSICAL 49813 SH[facility]A SILVA THERAPY 9 [facility] EVALUATIO INC INC N THERAPEUT 80203 SHIRA SILVA IC PX 1/> 9 [facility] AREAS INC INC EACH 15 MIN EXERCISES APPL 17816 SHIRA SILVA MODALITY 9 [facility] 1/> AREAS INC INC IONTOPHOR ESIS EA 15 MIN RADIOLOGI 02609 Giselle RILEY 9 MEDICAL SERENITY N EXAMINATI SERV ON KNEE 3 FOUNDATIO VIEWS RADIOLOGI 71089 MATEO TOVAR C 9 MEDICAL SERENITY N EXAMINATI SERV ON KNEE FOUNDATIO 1/2 VIEWS MRI ANY 46185 ROLANDO C SYL, JT LOWER 9 SYL ROLANDO EXTREM W/O CONTRAST MATRL BLOOD 23167 FAMILY MULBERRY, COUNT 9 CARE ALEKSANDR T COMPLETE ASSOCIATE AUTO&AUTO S DIFRNTL WBC COLLECTIO 03515 FAMILY MULBERRY, N 9 CARE ALEKSANDR T CAPILLARY ASSOCIATE BLOOD S SPECIMEN RADIOLOGI 41875 SHIRA SHIRA C 9 [facility] EXAMINATI INC INC ON KNEE 3 VIEWS COLLECTIO 47987 FAMILY MULBERRY, N 9 CARE ALEKSANDR T CAPILLARY ASSOCIATE BLOOD S SPECIMEN BLOOD 53869 FAMILY MULBERRY, COUNT 9 CARE ALEKSANDR T COMPLETE ASSOCIATE AUTO&AUTO S DIFRNTL WBC RADEX 18168 UNIVERSIT DIPTI, ELBOW 2 9 Y OF [facility] APPL 79755 SHIRA SILVA MODALITY 9 [facility] 1/> AREAS INC INC ELEC STIMJ UNATTENDE D THERAPEUT 12879 SHIRA SILVA IC PX /> 9 [facility] AREAS INC INC EACH 15 MIN EXERCISES APPLICATI 61380 SHIRA SILVA ON 9 [facility] MODALITY INC INC 1/> AREAS HOT/COLD PACKS APPLICATI 55438 SHIRA SILVA ON 9 [facility] MODALITY INC INC 1/> AREAS HOT/COLD PACKS THERAPEUT 36559 SHIRA SILVA IC PX 1/> 9 [facility] AREAS INC INC EACH 15 MIN EXERCISES APPL 44971 SHIRA SILVA MODALITY 9 [facility] 1/> AREAS INC INC ELEC STIMJ UNATTENDE D URNLS DIP 48994 FAMILY YAJAIRA, 9 CARE R NII STICK/TAB ASSOCIATE LET RGNT S NON-AUTO W/O MICRSCP CULTURE 07162 COMBINED COMBINED BACTERIAL 9 PHYSICIAN PHYSICIAN S LAB S LAB QUANTTATI VE COLONY COUNT URINE URNLS DIP 65322 FAMILY YAJAIRA, 9 CARE R NII STICK/TAB ASSOCIATE LET RGNT S NON-AUTO W/O MICRSCP APPL 52897 SHIRA SILVA MODALITY 9 [facility] 1/> AREAS INC INC ELEC STIMJ UNATTENDE D THERAPEUT 06745 SHIRA SILVA IC PX 1/> 9 [facility] AREAS INC INC EACH 15 MIN EXERCISES APPLICATI 40038 SHIRA SILVA ON 9 [facility] MODALITY INC INC 1/> AREAS HOT/COLD PACKS MANUAL 80373 SHIRA SILVA THERAPY 9 [facility] TQS 1/> INC INC REGIONS EACH 15 MINUTES THERAPEUT 13710 SHIRA SILVA IC PX /> 9 [facility] AREAS INC INC EACH 15 MIN EXERCISES THERAPEUT 92767 SHIRA HEARDON IC PX /> 9 [facility] AREAS INC INC EACH 15 MIN EXERCISES APPL 70698 SHIRA SILVA MODALITY 9 [facility] 1/> AREAS INC INC ELEC STIMJ UNATTENDE D MANUAL 11539 SHIRA SILVA THERAPY 9 [facility] TQS 1/> INC INC REGIONS EACH 15 MINUTES APPLICATI 66843 SHIRA SILVA ON 9 [facility] MODALITY INC INC 1/> AREAS HOT/COLD PACKS MANUAL 31763 SHIRA SILVA THERAPY 9 [facility] TQS 1/> INC INC REGIONS EACH 15 MINUTES THERAPEUT 75984 SHIRA SILVA IC PX 1/> 9 [facility] AREAS INC INC EACH 15 MIN EXERCISES THERAPEUT 66381 SHIRA HEARDON IC PX /> 9 [facility] AREAS INC INC EACH 15 MIN EXERCISES PHYSICAL 82820 SHIRA SILVA THERAPY 9 [facility] EVALUATIO INC INC N ANKLE L1930 PROSTHETI PROSTHETI FOOT 8 C&ORTHOTI C&ORTHOTI ORTHOTIC C C PLASTIC/O ASSOCIATE ASSOCIATE MATL S,LLC S,LLC PREFAB RADEX 61889 [facility] 8 Y Y COMPLETE HOSPITAL HOSPITAL MINIMUM 3 VIEWS HOSPITAL 20231 MATEO ARNOLD, DISCHARGE 8 MEDICAL ANDRES M DAY SERV MANAGEMEN FOUNDATIO T 30 MIN/< [place] [address] MATEO MCCORMICKS, ABDOMEN 8 MEDICAL MIKEY W/CONTRAS SERV T FOUNDATIO MATERIAL CT PELVIS 10074 [place], 8 MEDICAL MIKEY W/CONTRAS SERV T FOUNDATIO MATERIAL INITIAL 40662 [place] OLY INPATIENT 8 MEDICAL , JANAE CONSULT SERV R NEW/ESTAB FOUNDATIO PT 55 MIN SBSQ 68941 [facility] 8 [facility] CARE/DAY SERV 25 FOUNDATIO MINUTES INITIAL 16996 [facility] 8 MEDICAL BANNER CARE/DAY SERV 70 FOUNDATIO MINUTES INFUSION 0011 [facility] 8 Y [place] [address] SHIRA SHIRA ABDOMEN 8 [facility] W/CONTRAS INC INC T MATERIAL BLOOD 57063 FAMILY YAJAIRA, COUNT 8 CARE R NII COMPLETE ASSOCIATE AUTO&AUTO S DIFRNTL WBC CT PELVIS 66580 SHIRA SILVA 8 [facility] W/CONTRAS INC INC T MATERIAL 3D 81486 SHIRA SILVA RENDERING 8 [facility] INC INC W/INTERP& POSTPROC DIFF WORK STATION BLOOD 04295 FAMILY OCONNOR, COUNT 8 CARE ALEKSANDR T COMPLETE ASSOCIATE AUTO&AUTO S DIFRNTL WBC BLOOD 36670 Heidi REDD COUNT 8 CARE G COMPLETE ASSOCIATE AUTO&AUTO S DIFRNTL WBC PROTHROMB 18475 Heidi REDD IN TIME 8 CARE G ASSOCIATE S THROMBOPL 24727 COMBINED COMBINED ASTIN 8 PHYSICIAN PHYSICIAN TIME S LAB S LAB PARTIAL PLASMA/WH OLE BLOOD Encounters Encounter Start End Date Code Location Performer Type Date OFFICE 33238 FAMILY OCONNOR OUTPATIEN 7 7 CARE T VISIT ASSOCIATE 25 S MINUTES OFFICE 76660 FAMILY ALYSSA OUTPATIEN 7 7 CARE T VISIT ASSOCIATE 15 S MINUTES OFFICE 76995 FAMILY WARE OUTPATIEN 7 7 CARE T VISIT ASSOCIATE 15 S MINUTES HOSPITAL SHIRA - 7 7 [facility] OUTPATIEN INC T EMERGENCY 09630 SHIRA 7 7 [facility] DEPARTMEN INC T VISIT HIGH/URGE NT SEVERITY EMERGENCY 20990 [facility] DEPT 7 7 PHYSICIAN U VISIT S, PLLC HIGH SEVERITY& THREAT FUNCJ OFFICE 58795 FAMILY YAJAIRA OUTPATIEN 7 7 CARE T VISIT ASSOCIATE 15 S MINUTES OFFICE 13396 FAMILY WARE OUTPATIEN 7 7 CARE T VISIT ASSOCIATE 15 S MINUTES OFFICE 78834 FAMILY YAJAIRA OUTPATIEN 7 7 CARE T VISIT ASSOCIATE 15 S MINUTES OFFICE 86647 FAMILY MULBERRY OUTPATIEN 6 6 CARE T VISIT ASSOCIATE 15 S MINUTES OFFICE 83307 FAMILY YAJAIRA OUTPATIEN 6 6 CARE T VISIT ASSOCIATE 15 S MINUTES EMERGENCY 74988 [place] LISA 6 6 MEDICAL DEPARTMEN SERV T VISIT FOUNDATIO LOW/MODER N SEVERITY HOSPITAL - 6 6 [facility] OUTPATI[facility] T HOSPITALS EMERGENCY 54531 6 6 [facility] DEPARTMEN E T VISIT HOSPITALS HIGH/URGE NT SEVERITY OFFICE 22382 [facility] OUTPATIEN 6 6 PHYSICIAN WENDY T NEW 10 S GROUP MINUTES OFFICE 37695 FAMILY ISAMAR OUTPATIEN 6 6 CARE T VISIT ASSOCIATE 15 S MINUTES OFFICE 68613 FAMILY ISAMAR OUTPATIEN 6 6 CARE TAR T VISIT ASSOCIATE 15 S MINUTES OFFICE 37723 FAMILY ISAMAR OUTPATIEN 6 6 CARE TAR T VISIT ASSOCIATE 15 S MINUTES OFFICE 42549 FAMILY CROWDY OUTPATIEN 6 6 CARE CRI T VISIT ASSOCIATE 15 S MINUTES OFFICE 19240 FAMILY MULBERRY OUTPATIEN 6 6 CARE NEW T VISIT ASSOCIATE 15 S MINUTES OFFICE 43688 FAMILY ISAMAR OUTPATIEN 6 6 CARE TAR T VISIT ASSOCIATE 15 S MINUTES OFFICE 56925 FAMILY LISA OUTPATIEN 6 6 CARE PAUL T VISIT ASSOCIATE 15 S MINUTES OFFICE 96171 FAMILY ISAMAR OUTPATIEN 6 6 CARE TAR T VISIT ASSOCIATE 15 S MINUTES OFFICE 67237 FAMILY LISA OUTPATIEN 6 6 CARE PAUL T VISIT ASSOCIATE 15 S MINUTES OFFICE 65614 FAMILY LISA OUTPATIEN 6 6 CARE PAUL T VISIT ASSOCIATE 15 S MINUTES EMERGENCY 27596 [place] ECKERLINE 6 6 [facility] VISIT FOUNDATIO MODERATE N SEVERITY [facility] 84572 FAMILY YAJAIRA OUTPATIEN 6 6 CARE R H T VISIT ASSOCIATE 15 S MINUTES EMERGENCY 71715 YAYA PAZ 6 6 [facility] T VISIT MODERATE SEVERITY OFFICE 79567 FAMILY ISAMAR OUTPATIEN 6 6 CARE TAR T VISIT ASSOCIATE 15 S MINUTES OFFICE 42631 FAMILY LISA OUTPATIEN 6 6 CARE PAUL T VISIT ASSOCIATE 10 S MINUTES HOSPITAL SHIRA - 6 6 [facility]EN [facility] SHIRA - 6 6 [facility]EN [facility] SHIRA - 6 6 [facility] OUTPATIEN [facility] SHIRA - 6 6 [facility] OUTPATIEN [facility] OFFICE 83971 FAMILY LISA OUTPATIEN 6 6 CARE PAUL T VISIT ASSOCIATE 15 S MINUTES HOSPITAL SHIRA - 6 6 [facility] OUTPATIEN INC [facility]PITAL SHIRA - 6 6 [facility] OUTPATIEN [facility] SHIRA - 6 6 [facility] OUTPATIEN INC HOSPITAL SHIRA - 6 6 [facility] OUTPATIEN [facility] SHIRA - 6 6 [facility] OUTPATIEN [facility] OFFICE 26168 FAMILY LISA OUTPATIEN 6 6 CARE PAUL T VISIT ASSOCIATE 15 S MINUTES EMERGENCY 59481 YAYA PAZ 6 6 PHYSICIAN [facility] H[facility]URGE NT SEVERITY HOSPITAL SHIRA - 6 6 [facility] OUTPATIEN [facility] EMERGENCY 52905 SHIRA 6 6 [facility] T VISIT MODERATE SEVERITY OFFICE 25783 FAMILY LISA OUTPATIEN 6 6 CARE PAUL T VISIT ASSOCIATE 15 S MINUTES EMERGENCY 79658 YAYA MARTINEZ 6 6 PHYSICIAN JR TYRONE NO [facility] HIGH/URGE NT SEVERITY OFFICE 63739 FAMILY YAJAIRA OUTPATIEN 6 6 CARE R H T VISIT ASSOCIATE 15 S MINUTES OFFICE 33970 FAMILY CROWDY OUTPATIEN 6 6 CARE CRI T VISIT ASSOCIATE 15 S MINUTES OFFICE 26071 FAMILY CROWDY OUTPATIEN 6 6 CARE CRI T VISIT ASSOCIATE 15 S MINUTES OFFICE 59316 FAMILY YAJAIRA OUTPATIEN 6 6 CARE R H T VISIT ASSOCIATE 15 S MINUTES OFFICE 20173 FAMILY CROWDY OUTPATIEN 6 6 CARE CRI T VISIT ASSOCIATE 15 S MINUTES OFFICE 67636 FAMILY LISA OUTPATIEN 5 5 CARE PAUL T VISIT ASSOCIATE 15 S MINUTES OFFICE 66156 FAMILY CROWDY OUTPATIEN 5 5 CARE CRI T VISIT ASSOCIATE 15 S MINUTES OFFICE 68850 FAMILY YAJAIRA OUTPATIEN 5 5 CARE R H T VISIT ASSOCIATE 15 S MINUTES OFFICE 81743 FAMILY CROWDY OUTPATIEN 5 5 CARE CRI T VISIT ASSOCIATE 15 S MINUTES OFFICE 44178 FAMILY CROWDY OUTPATIEN 5 5 CARE CRI T VISIT ASSOCIATE 15 S MINUTES OFFICE 67584 [facility] OUTPATIEN 5 5 PHYSICIAN MIKA T VISIT S GROUP 15 MINUTES EMERGENCY 63918 YAYA DE LA VEGA 5 5 PHYSICIAN SONU DEPARTMEN S, PLLC T VISIT MODERATE SEVERITY OFFICE 19314 [facility] OUTPATIEN 5 5 PHYSICIAN MIKA Walker NEW 20 S GROUP MINUTES HOSPITAL SHIRA - 5 5 [facility] OUTPATIEN INC T OFFICE 13078 FAMILY LISA OUTPATIEN 5 5 CARE PAUL T VISIT ASSOCIATE 25 S MINUTES OFFICE 14300 FAMILY YAJAIRA OUTPATIEN 5 5 CARE R H T VISIT ASSOCIATE 15 S MINUTES OFFICE 39354 [place] MICHOACANO OUTPATIEN 5 5 MEDICAL ALLEN T VISIT SERV 25 FOUNDATIO MINUTES HOSPITAL UNIVERSIT - 5 5 Y OUTPATIEN HOSPITAL T OFFICE 28038 UNIVERSIT OUTPATIEN 5 5 Y T VISIT HOSPITAL 10 MINUTES OFFICE 39533 FAMILY YAJAIRA OUTPATIEN 5 5 CARE R H T VISIT ASSOCIATE 15 S MINUTES OFFICE 32212 FAMILY CROWDY OUTPATIEN 5 5 CARE CRI T VISIT ASSOCIATE 15 S MINUTES OFFICE 74577 FAMILY LISA J OUTPATIEN 5 5 CARE G T VISIT ASSOCIATE 15 S MINUTES HOSPITAL SHIRA - 5 5 [facility] OUTPATIEN INC T EMERGENCY 69486 SHIRA 5 5 [facility] DEPARTMEN INC T VISIT MODERATE SEVERITY EMERGENCY 91189 SHIRA DE LA VEGA 5 5 [facility] T VISIT P LOW/MODER SEVERITY OFFICE 94723 FAMILY MULBERRY OUTPATIEN 4 4 CARE NEW T VISIT ASSOCIATE 15 S MINUTES OFFICE 25267 FAMILY YAJAIRA OUTPATIEN 4 4 CARE R H T VISIT ASSOCIATE 15 S MINUTES OFFICE 39259 FAMILY MULBERRY OUTPATIEN 4 4 CARE NEW T VISIT ASSOCIATE 15 S MINUTES OFFICE 73808 FAMILY OUTPATIEN 4 4 CARE T VISIT ASSOCIATE 15 S MINUTES OFFICE 98310 FAMILY YAJAIRA OUTPATIEN 4 4 CARE R H T VISIT ASSOCIATE 15 S MINUTES OFFICE 17243 LISA J OUTPATIEN 4 4 G T VISIT 15 MINUTES OFFICE 41656 MULBERRY MULBERRY OUTPATIEN 4 4 NEW NEW T VISIT 15 MINUTES OFFICE 97209 CINTRON CINTRON OUTPATIEN 4 4 ERIC ERIC T VISIT 15 MINUTES OFFICE 26517 MULBERRY MULBERRY OUTPATIEN 4 4 NEW NEW T VISIT 15 MINUTES OFFICE 59639 LISA GONZALEZ J OUTPATIEN 4 4 G G T VISIT 15 MINUTES HOSPITAL SHIRA - 4 4 [facility] OUTPATIEN INC T OFFICE 23667 FAMILY OUTPATIEN 3 3 CARE T VISIT ASSOCIATE 15 S MINUTES OFFICE 53659 MULBERRY MULBERRY OUTPATIEN 3 3 NEW NEW T VISIT 15 MINUTES OFFICE 39436 FAMILY LISA OUTPATIEN 3 3 CARE PAUL T VISIT ASSOCIATE 15 S MINUTES OFFICE 89476 [place] ROMOND OUTPATIEN 3 3 MEDICAL EDW T VISIT SERV 25 FOUNDATIO MINUTES N OFFICE 89159 YAJAIRA YAJAIRA OUTPATIEN 3 3 R H R H T VISIT 15 MINUTES OFFICE 68416 ABDULAZIZ CINTRON OUTPATIEN 3 3 ERIC ERIC T VISIT 15 MINUTES OFFICE 26193 KMSF ABDULAZIZ OUTPATIEN 3 3 NURSE ERIC T VISIT PRACTITIO 15 NER GR MINUTES HOSPITAL UNIVERSIT - 3 3 Y [facility] T OFFICE 12807 LISA Gordon OUTPATIEN 3 3 G G T VISIT 10 MINUTES OFFICE 10835 LISA Gordon OUTPATIEN 3 3 G G T VISIT 15 MINUTES HOSPITAL SHIRA - 3 3 [facility] OUTPATIEN [facility] SHIRA - 3 3 [facility] OUTPATIEN [facility] OFFICE 70066 ABDULAZIZ CINTRON OUTPATIEN 3 3 ERIC ERIC T VISIT 15 MINUTES OFFICE 20239 MULMARSHA OCONNOR OUTPATIEN 3 3 NEW NEW T VISIT 15 MINUTES OFFICE 16219 SHIRA SILVA OUTPATIEN 2 2 [facility] 10 MINUTES [facility] UNIVERSIT - 2 2 Y [facility] SHIRA - 2 2 [facility] OUTPATIEN [facility] EMERGENCY 58026 MATEO CALLOWAY 2 2 MEDICAL NEW DEPARTMEN SERV T VISIT FOUNDATIO MODERATE SEVERITY EMERGENCY 80718 UNIVERSIT DEPT 2 2 Y VISIT HOSPITAL HIGH SEVERITY& THREAT RUST UNIVERSIT - 2 2 Y [facility] SHIRA - 2 2 [facility] OUTPATIEN [facility] OFFICE 64247 ABDULAZIZ CINTRON OUTPATIEN 2 2 ERIC ERIC T VISIT 15 MINUTES HOSPITAL UNIVERSIT - 2 2 Y [facility] T OFFICE 35126 BRENDA FREEMANGH CONSULTAT 2 2 LUCIAN LUCIAN ION NEW/ESTAB PATIENT 40 MIN OFFICE 31496 CAM LEVY OUTPATIEN 2 2 SRI SRI T VISIT 25 MINUTES HOSPITAL UNIVERSIT - 2 2 Y [facility] T OFFICE 23238 FAMILY OUTPATIEN 2 2 CARE T VISIT ASSOCIATE 15 S MINUTES OFFICE 82831 ABDULAZIZ CINTRON OUTPATIEN 2 2 ERIC ERIC T VISIT 15 MINUTES OFFICE 43592 WARE WARE OUTPATIEN 2 2 KATIUSKA KATIUSKA T VISIT 15 MINUTES OFFICE 63399 LISA Gordon OUTPATIEN 2 2 T VISIT 15 MINUTES OFFICE 93359 LISA GONZALEZ J OUTPATIEN 2 2 T VISIT 15 MINUTES HOSPITAL SHIRA - 2 2 [facility] OUTPATIEN INC T OFFICE 35788 WARE WARE OUTPATIEN 2 2 KATIUSKA KATIUSKA T VISIT 15 MINUTES HOSPITAL SHIRA - 2 2 [facility] OUTPATIEN INC T EMERGENCY 97727 SHIRA 2 2 [facility] DEPARTMEN INC T VISIT MODERATE SEVERITY OFFICE 84737 FAMILY WARE OUTPATIEN 2 2 CARE KATIUSKA T VISIT ASSOCIATE 15 S MINUTES HOSPITAL SHIRA - 1 1 [facility] OUTPATIEN INC T OFFICE 25307 ABDULAZIZ CINTRON OUTPATIEN 1 1 ERIC ERIC T VISIT 15 MINUTES OFFICE 49290 KAMNAIF MARINE OUTPATIEN 1 1 YESI YESI T NEW 30 MINUTES OFFICE 91588 FAMILY MULBERRY OUTPATIEN 1 1 CARE NEW T VISIT ASSOCIATE 15 S MINUTES OFFICE 21067 FAMILY MULBERRY OUTPATIEN 1 1 CARE NEW T VISIT ASSOCIATE 15 S MINUTES OFFICE 28070 FAMILY MULBERRY OUTPATIEN 1 1 CARE NEW T VISIT ASSOCIATE 15 S MINUTES HOSPITAL SHIRA - 1 1 [facility] OUTPATIEN INC T OFFICE 78625 FAMILY YAJAIRA OUTPATIEN 1 1 CARE R H T VISIT ASSOCIATE 15 S MINUTES OFFICE 52757 FAMILY YAJAIRA OUTPATIEN 1 1 CARE R H T VISIT ASSOCIATE 15 S MINUTES OFFICE 28581 FAMILY LISA J OUTPATIEN 1 1 CARE T VISIT ASSOCIATE 15 S MINUTES OFFICE 83774 KMSF CINTRON OUTPATIEN 1 1 NURSE ERIC T VISIT PRACTITIO 15 NER GR MINUTES OFFICE 11535 FAMILY MULBERRY OUTPATIEN 1 1 CARE NEW T VISIT ASSOCIATE 25 S MINUTES OFFICE 94598 MATEO RÍOS OUTPATIEN 1 1 MEDICAL ALLEN T VISIT SERV 15 FOUNDATIO MINUTES OFFICE 12764 FAMILY LISA J OUTPATIEN 0 0 CARE T VISIT ASSOCIATE 15 S MINUTES HOSPITAL SHIRA - 0 0 [facility] OUTPATIEN INC T OFFICE 57059 FAMILY YAJAIRA OUTPATIEN 0 0 CARE R H T VISIT ASSOCIATE 15 S MINUTES OFFICE 94653 FAMILY MULBERRY OUTPATIEN 0 0 CARE NEW T VISIT ASSOCIATE 15 S MINUTES HOSPITAL UNIVERSIT - 0 0 Y INPATIENT HOSPITAL OFFICE 60976 FAMILY LISA J OUTPATIEN 0 0 CARE T VISIT ASSOCIATE 15 S MINUTES OFFICE 75828 MATEO RÍOS OUTPATIEN 0 0 MEDICAL ALLEN T VISIT SERV 10 FOUNDATIO MINUTES OFFICE 85865 FAMILY MULBERRY OUTPATIEN 0 0 CARE NEW T VISIT ASSOCIATE 15 S MINUTES HOSPITAL UNIVERSIT - 0 0 Y [facility] T OFFICE 31521 JOHN CINTRON, OUTPATIEN 0 0 NURSE JOSÉ Stephens T VISIT PRACTITIO 15 NER GROUP MINUTES OFFICE 26281 FAMILY GONZALEZ J OUTPATIEN 0 0 CARE G T VISIT ASSOCIATE 15 S MINUTES OFFICE 36166 FAMILY BRENNANEET, OUTPATIEN 0 0 CARE R NII T VISIT ASSOCIATE 15 S MINUTES OFFICE 91890 [facility] ABDULAZIZ, OUTPATIEN 0 0 NURSE JOSÉ Stephens T VISIT PRACTITIO 15 NER GROUP MINUTES OFFICE 41291 FAMILY BRENNANEET, OUTPATIEN 0 0 CARE R NII T VISIT ASSOCIATE 15 S MINUTES OFFICE 67948 FAMILY OCONNOR, OUTPATIEN 0 0 CARE ALEKSANDR T T VISIT ASSOCIATE 15 S MINUTES OFFICE 77614 FAMILY GONZALEZ J OUTPATIEN 0 0 CARE G T VISIT ASSOCIATE 15 S MINUTES OFFICE 01902 MATEO ANNY, OUTPATIEN 0 0 MEDICAL EDWARD T VISIT SERV 15 FOUNDATIO MINUTES OFFICE 78601 FAMILY CARSONT, OUTPATIEN 0 0 CARE R NII T VISIT ASSOCIATE 15 S MINUTES HOSPITAL UNIVERSIT - 0 0 Y [facility] T OFFICE 77643 FAMILY BRENNANEET, OUTPATIEN 9 9 CARE R NII T VISIT ASSOCIATE 15 S MINUTES HOSPITAL UNIVERSIT - 9 9 Y [facility] SHIRA - 9 9 [facility] OUTPATIEN [facility] T [facility] [place] - 9 9 [facility] OUTPATIEN [facility] T OFFICE 02724 FAMILY OCONNOR, OUTPATIEN 9 9 CARE ALEKSANDR T T VISIT ASSOCIATE 15 S MINUTES HOSPITAL SHIRA - 9 9 [facility] OUTPATIEN INC T OFFICE 07889 FAMILY GATES OUTPATIEN 9 9 CARE R NII T VISIT ASSOCIATE 15 S MINUTES OFFICE 71101 JOHN CINTRON OUTPATIEN 9 9 NURSE JOSÉ Stephens T VISIT PRACTITIO 10 NER GROUP MINUTES OFFICE 55383 FAMILY OCONNOR OUTPATIEN 9 9 CARE ALEKSANDR T T VISIT ASSOCIATE 15 S MINUTES OFFICE 70632 [facility] OUTPATIEN 9 9 [facility] T VISIT INC 10 MINUTES [facility]OSP[facility] - 9 9 [facility] T HOME [facility], 9 9 HOME [facility] T [facility]ERS[facility] - 9 9 Y [facility] T HOME [facility] 9 9 HOME [facility] T [facility] - 9 9 Y [facility] T OFFICE 40649 MATEO LEVY OUTPATIEN 9 9 MEDICAL BIMAL T VISIT SERV [facility] - 9 9 Y [facility] T OFFICE 62045 Heidi GONZALEZ OUTPATIEN 9 9 CARE G T VISIT ASSOCIATE 15 S MINUTES OFFICE 36257 FAMILY GATES OUTPATIEN 9 9 CARE R NII T VISIT ASSOCIATE 15 S MINUTES OFFICE 54349 MATEO MCCORMICK OUTPATIEN 9 9 MEDICAL EDWARD T VISIT SERV 15 [facility] - 9 9 [facility] OUTPATIEN INC T OFFICE 94977 [place] KACI CONSULTBELEN 9 9 MEDICAL JULIETTE T ION SERV NEW/ESTAB [facility] PATIENT 40 MIN OFFICE 42438 FAMILY YAJAIRA, OUTPATIEN 9 9 CARE R NII T VISIT ASSOCIATE 15 S MINUTES OFFICE 94792 FAMILY MULBERRY, OUTPATIEN 9 9 CARE ALEKSANDR T T VISIT ASSOCIATE 15 S MINUTES OFFICE 53699 FAMILY YAJAIRA, OUTPATIEN 9 9 CARE R NII T VISIT ASSOCIATE 15 S MINUTES [facility] - 9 9 [facility] T OFFICE 84606 FAMILY MULBERRY, OUTPATIEN 9 9 CARE ALEKSANDR T T VISIT ASSOCIATE 15 S MINUTES OFFICE 38505 FAMILY MULBERRY, OUTPATIEN 9 9 CARE ALEKSANDR T T VISIT ASSOCIATE 15 S MINUTES HOSPITAL [facility]ERSIT - 9 9 Y [facility] T OFFICE 47402 ABEBESMauricio CINTRON, OUTPATIEN 9 9 NURSE JOSÉ Stephens T VISIT PRACTITIO 10 NER GROUP MINUTES [facility]OSPITAL [facility] - 9 9 [facility] OUTPATIEN INC T OFFICE 73493 FAMILY YAJAIRA, OUTPATIEN 9 9 CARE R NII T VISIT ASSOCIATE 15 S MINUTES OFFICE 99219 FAMILY YAJAIRA, OUTPATIEN 9 9 CARE R NII T VISIT ASSOCIATE 15 S MINUTES OFFICE 37580 FAMILY YAJAIRA, OUTPATIEN 9 9 CARE R NII T VISIT ASSOCIATE 15 S MINUTES [facility]OSPITAL [facility] - 9 9 [facility] OUTPATIEN INC T OFFICE 03919 FAMILY YAJAIRA, OUTPATIEN 9 9 CARE R NII T VISIT ASSOCIATE 15 S MINUTES OFFICE 78775 MATEO MCCORMICK, OUTPATIEN 9 9 MEDICAL EDWARD T VISIT SERV 15 FOUNDATIO MINUTES OFFICE 03213 FAMILY YAJAIRA, OUTPATIEN 9 9 CARE R NII T VISIT ASSOCIATE 15 S MINUTES OFFICE 26144 FAMILY YAJAIRA, OUTPATIEN 8 8 CARE R NII T VISIT ASSOCIATE 10 S MINUTES OFFICE 66119 MATEO RÍOS BRIPATIEN 8 8 MEDICAL ELENA J T VISIT SERV 10 FOUNDATIO MINUTES OFFICE 75295 BRI SAEEDPATIEN 8 8 CARE R NII T VISIT ASSOCIATE 15 S MINUTES OFFICE 42028 MATEO MCCORMICK BRIPATIEN 8 8 MEDICAL EDWARD T VISIT SERV 15 FOUNDATIO MINUTES OFFICE 72961 MATEO RÍOS OUTPATIEN 8 8 MEDICAL ELENA Gordon T VISIT SERV 15 FOUNDATIO MINUTES [facility] - 8 [facility] Y [facility] [place] - 8 8 [facility] OFF[facility] 01705 FAMILY GATES BRIPATIEN 8 8 CARE R NII T VISIT ASSOCIATE 15 S MINUTES OFFICE 33029 BRI SELLERSPATIEN 8 8 CARE ALEKSANDR T T VISIT ASSOCIATE 15 S MINUTES OFFICE 03693 FAMILY OCONNOR OUTPATIEN 8 8 CARE ALEKSANDR T T VISIT ASSOCIATE 15 S MINUTES OFFICE 46757 FAMILY GONZALEZ Heidi OUTPATIEN 8 8 CARE G T VISIT ASSOCIATE 15 S MINUTES OFFICE 36946 FAMILY GATES OUTPATIEN 8 8 CARE R NII T VISIT ASSOCIATE 15 S MINUTES OFFICE 14898 MATEO MCCORMICK BRIPATIEN 8 8 MEDICAL EDWARD T VISIT SERV 15 FOUNDATIO MINUTES
--- OUTSIDE RECORDS SUMMARY | 2017-06-22 19:29 | External Medical Summary Rpt | CCD ---
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 INJ AHF/ J7186 BIORX BIORX VWF CMPLX 2 PER FACTOR VIII IU RADEX 51214 [place] CHEPE ELBOW 2 MEDICAL AMBROSIO COMPLETE SERV MINIMUM 3 FOUNDATIO VIEWS N IIV3 97260 SHIRA SILVA VACCINE 2 [facility]NOTE [facility]] CENTER VIRUS 0.5 ML DOSAGE IM USE E-STIM G0283 SHIRA SILVA 1/> AREAS 2 [facility] OTH THAN INC INC WND CARE PART TX PLAN APPL 53628 SHIRA SHIRA MODALITY 2 [facility] 1/> AREAS INC INC ULTRASOUN D EA 15 MIN MANUAL 98252 SHIRAROCKY SILVA THERAPY 2 [facility] TQS 1/> INC INC REGIONS EACH 15 MINUTES APPLICATI 45305 SHIRA SILVA ON 2 [facility] MODALITY INC INC 1/> AREAS HOT/COLD PACKS INJ AHF/ J7186 BIORX BIORX VWF CMPLX 2 PER FACTOR VIII IU E-STIM G0283 SHIRA SHIRA 1/> AREAS 2 [facility]OS[facility] OTH THAN INC INC WND CARE PART TX PLAN APPLICATI 05457 SHIRA SILVA ON 2 [facility] MODALITY INC INC 1/> AREAS HOT/COLD PACKS APPL 24729 SHIRA SILVA MODALITY 2 [facility] 1/> AREAS INC INC ULTRASOUN D EA 15 MIN MANUAL 48273 SHIRA SHIRA THERAPY 2 [facility] TQS 1/> INC INC REGIONS EACH 15 MINUTES INJ AHF/ J7186 BIORX BIORX VWF CMPLX 2 PER FACTOR VIII IU E-STIM G0283 SHIRA HEARDON 1/> AREAS 2 [facility] OTH THAN INC INC WND CARE PART TX PLAN APPL 04670 SHIRA SHIRA MODALITY 2 [facility] 1/> AREAS INC INC ULTRASOUN D EA 15 MIN MANUAL 00184 SHIRA SILVA THERAPY 2 [facility] TQS 1/> INC INC REGIONS EACH 15 MINUTES APPLICATI 91222 SHIRA SILVA ON 2 [facility] MODALITY INC INC 1/> AREAS HOT/COLD PACKS APPLICATI 21301 SHIRA SILVA ON 2 [facility] MODALITY INC INC 1/> AREAS HOT/COLD PACKS MANUAL 85070 SHIRA SILVA THERAPY 2 [facility] TQS 1/> INC INC REGIONS EACH 15 MINUTES E-STIM G0283 SHIRA SILVA 1/> AREAS 2 [facility]OS[facility] OTH THAN INC INC WND CARE PART TX PLAN APPL 87952 SHIRA SILVA MODALITY 2 [facility] 1/> AREAS INC INC ULTRASOUN D EA 15 MIN APPL 11252 SHIRA SILVA MODALITY 2 [facility] 1/> AREAS INC INC ULTRASOUN D EA 15 MIN MANUAL 59590 SHIRA SILVA THERAPY 2 [facility] TQS 1/> INC INC REGIONS EACH 15 MINUTES E-STIM G0283 SHIRA SILVA 1/> AREAS 2 [facility]OS[facility] OTH THAN INC INC WND CARE PART TX PLAN APPLICATI 22342 SHIRA SILVA ON 2 [facility] MODALITY INC INC 1/> AREAS HOT/COLD PACKS APPLICATI 99182 SHIRA SILVA ON 2 [facility] MODALITY INC INC 1/> AREAS HOT/COLD PACKS E-STIM G0283 SHIRA SILVA 1/> AREAS 2 [facility] OTH THAN INC INC WND CARE PART TX PLAN APPL 18571 SHIRA SILVA MODALITY 2 [facility] 1/> AREAS INC INC ULTRASOUN D EA 15 MIN MANUAL 04704 SHIRA SILVA THERAPY 2 [facility] TQS 1/> INC INC REGIONS EACH 15 MINUTES THERAPEUT 95062 SHIRA SILVA IC PX 1/> 2 [facility] AREAS INC INC EACH 15 MIN EXERCISES INJ AHF/ J7186 BIORX BIORX VWF CMPLX 2 PER FACTOR VIII IU PROTHROMB 90154 [facility] IN TIME 2 Y Y [facility] THER 45271 [facility] PROPH/DX 2 Y Y NJX IV [facility] PUSH SINGLE/1S T SBST/DRUG C-REACTIV 30071 [facility] E PROTEIN 2 Y Y [facility] COLLECTIO 88366 [facility] N VENOUS 2 Y Y BLOOD [facility] VENIPUNCT URE INJECTION J2405 [facility] 2 Y Y [facility] ON HCL PER 1 MG BLOOD 81023 [facility] COUNT 2 Y Y COMPLETE [facility]OSPITAL HOSPITAL AUTO&AUTO DIFRNTL WBC THERAPEUT 50505 [facility] IC 2 Y Y INJECTION HOSPITAL HOSPITAL IV PUSH EACH NEW DRUG INJECTION J2270 [facility] MORPHINE 2 Y [facility] UP TO 10 MG THROMBOPL 24324 [facility] ASTIN 2 Y Y TIME HOSPITAL HOSPITAL PARTIAL PLASMA/WH OLE BLOOD SEDIMENTA 36207 [facility] TION RATE 2 Y Y RBC HOSPITAL HOSPITAL AUTOMATED RADEX 81778 [place] MERHAR ELBOW 2 MEDICAL GAR COMPLETE SERV MINIMUM 3 FOUNDATIO VIEWS N MANUAL 20708 SHIRA SILVA THERAPY 2 [facility] TQS 1/> INC INC REGIONS EACH 15 MINUTES APPLICATI 85549 SHIRA SILVA ON 2 [facility] MODALITY INC INC 1/> AREAS HOT/COLD PACKS PHYSICAL 78405 SHIRA SILVA THERAPY 2 [facility] EVALUATIO INC INC N PROTHROMB 76518 [facility] IN TIME 2 Y Y HOSPITAL HOSPITAL INJECTION J1170 [facility] 2 Y Y HYDROMORP [facility] KADY UP TO 4 MG RINGERS J7120 [facility] LACTATE 2 Y [facility] UP TO 1000 CC ARTHRT 50642 [facility] ELBOW 2 [facility] CAPSULAR EXCISION CAPSULAR RLS SPX BLOOD 39762 [facility] COUNT 2 Y Y COMPLETE HOSPITAL HOSPITAL AUTOMATED INJECTION J2270 [facility] MORPHINE 2 Y [facility] UP TO 10 MG INJECTION J2250 [facility] 2 Y Y [facility] HCL PER 1 MG ARTHROSCO 79920 [facility] PY ELBOW 2 [facility] SURGICAL SYNOVECTO MY COMPLETE THROMBOPL 73439 [facility] ASTIN 2 Y Y TIME HOSPITAL HOSPITAL PARTIAL PLASMA/WH OLE BLOOD UNCLASSIF J3490 [facility] IED DRUGS 2 Y Y HOSPITAL HOSPITAL INJECTION J3010 [facility] FENTANYL 2 Y [facility] 0.1 MG INJECTION J2710 [facility] 2 Y Y [facility] NE METHYLSUL FATE UP TO 0.5 MG ANESTHESI 52628 [facility] REILL[facility] A ELBOW 2 [facility] [place] ANESTHESI DIAGNOSTI A PSC C ARTHROSCO PIC INJECTION J2405 [facility] 2 Y Y [facility] ON HCL PER 1 MG PARTIAL 57911 CAM LEVY EXCISION 2 SRI SRI BONE OLECRANON PROCESS ARTHROSCO 87414 CAM LEVY PY ELBOW 2 SRI [place] [address] [facility] SURG 2 Y [facility]OLOG[facility] [place] [facility] GROSS&SONU ROSCOPIC EXAM INJ AHF/ J7186 BIORX BIORX VWF CMPLX 2 PER FACTOR VIII IU INJ AHF/ J7186 BIORX BIORX VWF CMPLX 2 PER FACTOR VIII IU FACTOR J7190 BIORX BIORX VIII 2 ANTIHEMOP HILIC FACTOR HUMAN PER IU RADEX 62180 [place] CHEPE ELBOW 2 MEDICAL AMBROSIO COMPLETE SERV MINIMUM 3 FOUNDATIO VIEWS N INJ F/ J7186 BIORX BIORX VWF CMPLX 2 PER FACTOR VIII IU FACTOR J7190 BIORX BIORX VIII 2 ANTIHEMOP HILIC FACTOR HUMAN PER IU BLOOD 28452 [place]ARE COUNT 2 [place] COMPLETE AUTO&AUTO DIFRNTL WBC INJ F/ J7186 BIORX BIORX VWF CMPLX 2 PER FACTOR VIII IU BLOOD 68306 LISA Gordon COUNT 2 COMPLETE AUTO&AUTO DIFRNTL WBC RADIOLOGI 34267 SHIRA SILVA C EXAM 2 [facility] CHEST 2 INC INC VIEWS FRONTAL&L ATERAL TRANSFERA 20290 LISA CAMARILLO ANT SE 2 ASPARTATE AMINO AST SGOT TRANSFERA 60787 LISA Gordon SE 2 ALANINE AMINO ALT SGPT PROTHROMB 83626 LISA Gordon IN TIME 2 INJ AHF/ [...] ANTIHEMOP HILIC FACTOR HUMAN PER IU BLOOD 78213 [place]ARE COUNT 2 [place] COMPLETE AUTO&AUTO DIFRNTL WBC CULTURE 10589 COMBINED COMBINED BACTERIAL 2 PHYSICIAN PHYSICIAN S LA S LA QUANTTATI VE COLONY COUNT URINE URNLS DIP 88095 WARE WARE 2 [place] STICK/TAB LET RGNT NON-AUTO W/O MICRSCP COMPREHEN 73878 SHIRA SILVA SIVE 2 [facility] METABOLIC INC INC PANEL THROMBOPL 07402 SHIRA SILVA ASTIN 2 [facility] TIME INC INC PARTIAL PLASMA/[place] [address] SYL SYL ABDOMEN & 2 MARA MARA PELVIS W/CONTRAS T MATERIAL LOCM Q9967 SHIRA SILVA [phone] 2 [facility] MG/ML INC INC IODINE CONCENTRA TION PER ML URNLS DIP 96978 SHIRA SILVA 2 [facility] STICK/TAB INC INC LET REAGENT AUTO MICROSCOP Y BLOOD 74945 SHIRA SILVA COUNT 2 [facility] COMPLETE INC INC AUTO&AUTO DIFRNTL WBC PROTHROMB 21916 SHIRA RINALDI IN TIME 2 [facility]OS[facility] JR THO INC FACTOR J7190 BIORX BIORX VIII 2 ANTIHEMOP HILIC FACTOR HUMAN PER IU BLOOD 28094 FAMILY FAMILY COUNT 2 CARE CARE COMPLETE ASSOCIATE ASSOCIATE AUTO&AUTO S S DIFRNTL WBC FACTOR J7190 BIORX BIORX VIII 1 ANTIHEMOP HILIC FACTOR HUMAN PER IU ANK FT L1906 ADVANCED ADVANCED ORTHOS 1 TECHNOLOG TECHNOLOG MX-LIG IES INC IES INC ANK SUPT PREFB OFF SHELF ORTHOTIC 89613 SHIRA SILVA MGMT&DAREN 1 [facility] [place] UXTR INC INC LXTR&/TRN K EA 15 BLOOD 40863 FAMILY FAMILY COUNT 1 CARE CARE COMPLETE ASSOCIATE ASSOCIATE AUTO&AUTO S S DIFRNTL WBC IAADIADOO 38810 FAMILY MULBERRY 1 CARE NEW STREPTOCO ASSOCIATE CCUS S GROUP A BLOOD 55673 FAMILY FAMILY COUNT 1 CARE CARE COMPLETE ASSOCIATE ASSOCIATE AUTO&AUTO S S DIFRNTL WBC BLOOD 89179 FAMILY FAMILY COUNT 1 CARE CARE COMPLETE ASSOCIATE ASSOCIATE AUTO&AUTO S S DIFRNTL WBC IAADIADOO 85292 FAMILY MULBERRY 1 CARE NEW STREPTOCO ASSOCIATE CCUS S GROUP A BLOOD 36825 SHIRA HEARDON OCCULT 1 [facility] PEROXIDAS INC INC E ACTV QUAL FECES 1-3 [place] [address] SHIRA SILVA CLOSTRIDI 1 [facility] [place] [address] SHIRA SHIRA ROTAVIRUS 1 [facility] INC INC IAADIADOO 54116 FAMILY EVERETTFLEET 1 CARE R H STREPTOCO ASSOCIATE CCUS S GROUP A IAADIADOO 21656 FAMILY LISA Gordon 1 CARE STREPTOCO ASSOCIATE CCUS S GROUP A RADIOLOGI 35127 [facility] C EXAM 0 MEDICAL MARA CHEST 2 IMAGING VIEWS ASS FRONTAL&L ATERAL IAADIADOO 69648 FAMILY MULBERRY 0 CARE NEW STREPTOCO ASSOCIATE CCUS S GROUP A BLOOD 31415 FAMILY MULBERRY COUNT 0 CARE NEW COMPLETE ASSOCIATE AUTO&AUTO S DIFRNTL WBC ARTHROSCO 01185 [place] MICHOACANO PY ANKLE 0 MEDICAL ALLEN SURGICAL SERV DEBRIDEME FOUNDATIO NT LIMITED ANESTHESI 83304 MATEO YADIRA A 0 MEDICAL JOSH ARTHROSCO SERVICES PIC PROCEDURE ANKLE & FOOT OTH LOCAL 8487 [facility] 0 Y Y EXCISION/ HOSPITAL HOSPITAL DESTRUCTI ON LESION ANK JOINT IAADIADOO 73077 LISA J 0 CARE STREPTOCO ASSOCIATE CCUS S GROUP A BLOOD 54178 FAMILY FAMILY COUNT 0 CARE CARE COMPLETE ASSOCIATE ASSOCIATE AUTO&AUTO S S DIFRNTL WBC RADEX 64246 [facility] ANKLE 0 Y Y [facility] MINIMUM 3 VIEWS 25 97092 LAB SHANI LAB SHANI HYDROXY 0 AMERIC AMERIC INCLUDES HOLDING HOLDING FRACTIONS IF PERFORMED THERAPEUT 37698 [facility] IC PX 1/> 0 Y Y [facility] EACH 15 MIN EXERCISES PHYSICAL 07037 [facility] 9 Y Y [facility] N THERAPEUT 73278 SHIRA SILVA IC PX 1/> 9 [facility] AREAS INC INC EACH 15 MIN EXERCISES APPL 73520 SHIRA SILVA MODALITY 9 [facility] 1/> AREAS INC INC ELEC STIMJ UNATTENDE D APPL 27830 SHIRA SILVA MODALITY 9 [facility] 1/> AREAS INC INC ULTRASOUN D EA 15 MIN APPLICATI 45078 SHIRA SILVA ON 9 [facility] MODALITY INC INC 1/> AREAS HOT/COLD PACKS APPLICATI 69813 SHIRA SILVA ON 9 [facility] MODALITY INC INC 1/> AREAS HOT/COLD PACKS APPL 07081 SHIRA SILVA MODALITY 9 [facility] 1/> AREAS INC INC ULTRASOUN D EA 15 MIN RADEX 52292 [facility] SYL, ELBOW 9 MEDICAL ROLANDO COMPLETE IMAGING MINIMUM 3 ASSOCIATE VIEWS S APPL 67307 SHIRA SILVA MODALITY 9 [facility] 1/> AREAS INC INC ELEC STIMJ UNATTENDE D THERAPEUT 80504 SHIRA SILVA IC PX 1/> 9 [facility] AREAS INC INC EACH 15 MIN EXERCISES THERAPEUT 51913 SHIRA SILVA IC PX 1/> 9 [facility] AREAS INC INC EACH 15 MIN EXERCISES APPL 23305 SHIRA SILVA MODALITY 9 [facility] 1/> AREAS INC INC ELEC STIMJ UNATTENDE D APPL 29953 SHIRA SILVA MODALITY 9 [facility] 1/> AREAS INC INC ULTRASOUN D EA 15 MIN APPLICATI 74798 SHIRA SILVA ON 9 [facility] MODALITY INC INC 1/> AREAS HOT/COLD PACKS APPLICATI 80286 SHIRA SILVA ON 9 [facility] MODALITY INC INC 1/> AREAS HOT/COLD PACKS APPL 76672 SHIRA SILVA MODALITY 9 [facility] 1/> AREAS INC INC ULTRASOUN D EA 15 MIN APPL 63272 SHIRA SILVA MODALITY 9 [facility] 1/> AREAS INC INC ELEC STIMJ UNATTENDE D PHYSICAL 68359 SHIRA SILVA THERAPY 9 [facility] EVALUATIO INC INC N APPL 33956 SHIRA SILVA MODALITY 9 [facility] 1/> AREAS INC INC IONTOPHOR ESIS EA 15 MIN BLOOD 02864 FAMILY ZEESHANBERRY, COUNT 9 CARE ALEKSANDR Walker COMPLETE ASSOCIATE AUTO&AUTO S DIFRNTL WBC BLOOD 49673 FAMILY YAJAIRA, COUNT 9 CARE Deneen BALES COMPLETE ASSOCIATE AUTO&AUTO S DIFRNTL WBC INITIAL 89800 [facility] OBSERVATI 9 Y Y ON HOSPITAL HOSPITAL CARE/DAY 30 MINUTES INJECTION J2997 [facility] [place] [place] 9 Y [facility] REC[facility] 1 MG UNCLASSIF J3490 [facility] IED DRUGS 9 Y [facility]ANS H[facility]PITAL INJECTION J3010 [facility]ENT[facility]L 9 Y Y [facility] 0.1 MG ANESTHESI 28427 Reid ZIEGLER 9 MEDICAL JULIETTE Desai OPEN/SURG SERVICES ARTHRS RADICAL PROC ELBOW ARTHROSCO 37734 [facility] PY ELBOW 9 Y Y [facility] SYNOVECTO MY COMPLETE UNLISTED 56306 [facility] PROCEDURE 9 Y Y HOSPITAL HOSPITAL ARTHROSCO PY INJECTION J2270 [facility] MORPHINE 9 Y Y [facility] UP TO 10 [place] [address] [facility] SURG 9 Y Y PATHOLOGY [facility] GROSS&SONU ROSCOPIC EXAM DECALCIFI 42901 [facility] CATION 9 Y Y [facility]PITAL INJECTION J2405 [facility] 9 Y Y [facility] ON HCL PER 1 MG INJECTION J2795 [facility] 9 Y Y [facility] HYDROCHLO RIDE 1 MG INJECTION J2175 [facility] 9 Y Y [facility] E HCL PER 100 MG RAD RESCJ 99204 MATEO CAM CAPSL 9 [facility] TISS&HTRT SERV PC BONE FOUNDATIO ELBW CONTRCT EXCISION 27431 MATEO CAM RADIAL 9 MEDICAL [facility] FOUNDATIO BLOOD 74423 [facility] COUNT 9 Y Y [facility] AUTO&AUTO DIFRNTL WBC RADIOLOGI 16303 Giselle BRICEÑO EXAM 9 Y OF [facility] CHEST 2 [facility] FRONTAL&L ATERAL FACTOR 22861 [facility] INHIBITOR 9 Y Y [facility] 70695 [facility] CVC W/O 9 Y Y [facility] PORT/DIRECTOR PHARMACOLOGY AGE 6 YR/> RADEX 84659 [facility] ELBOW [address] [facility] BLOOD 43142 FAMILY LISA, J COUNT 9 CARE G COMPLETE ASSOCIATE AUTO&AUTO S DIFRNTL WBC APPL 94904 SHIRA SILVA MODALITY 9 [facility] 1/> AREAS INC INC IONTOPHOR ESIS EA 15 MIN THERAPEUT 27228 SHIRA SILVA IC PX 1/> 9 [facility] AREAS INC INC EACH 15 MIN EXERCISES APPL 20728 SHIRA SILVA MODALITY 9 [facility] 1/> AREAS INC INC ULTRASOUN D EA 15 MIN MANUAL 03972 SHIRA SILVA THERAPY 9 [facility] TQS 1/> INC INC REGIONS EACH 15 MINUTES APPL 67931 SHIRA SILVA MODALITY 9 [facility] 1/> AREAS INC INC ULTRASOUN D EA 15 MIN PHYSICAL 56325 SHIRA SILVA THERAPY 9 [facility]OS[facility] EVALUATIO INC INC N THERAPEUT 05207 SHIRA SILVA IC PX 1/> 9 [facility] AREAS INC INC EACH 15 MIN EXERCISES APPL 12532 SHIRA SILVA MODALITY 9 [facility] 1/> AREAS INC INC IONTOPHOR ESIS EA 15 MIN RADIOLOGI 90917 Giselle RILEY 9 MEDICAL SERENITY N EXAMINATI SERV ON KNEE 3 FOUNDATIO VIEWS RADIOLOGI 35497 MATEO TOVAR C 9 MEDICAL SERENITY N EXAMINATI SERV ON KNEE FOUNDATIO 1/2 VIEWS MRI ANY 66666 ROLANDO C SYL, JT LOWER 9 SYL ROLANDO EXTREM W/O CONTRAST MATRL BLOOD 88595 FAMILY MULBERRY, COUNT 9 CARE ALEKSANDR T COMPLETE ASSOCIATE AUTO&AUTO S DIFRNTL WBC COLLECTIO 86831 FAMILY MULBERRY, N 9 CARE ALEKSANDR T CAPILLARY ASSOCIATE BLOOD S SPECIMEN RADIOLOGI 82718 SHIRA SHIRA C 9 [facility] EXAMINATI INC INC ON KNEE 3 VIEWS COLLECTIO 76658 FAMILY MULBERRY, N 9 CARE ALEKSANDR T CAPILLARY ASSOCIATE BLOOD S SPECIMEN BLOOD 03329 FAMILY MULBERRY, COUNT 9 CARE ALEKSANDR T COMPLETE ASSOCIATE AUTO&AUTO S DIFRNTL WBC RADEX 12691 UNIVERSIT DIPTI, ELBOW 2 9 Y OF [facility] APPL 34459 SHIRA SILVA MODALITY 9 [facility] 1/> AREAS INC INC ELEC STIMJ UNATTENDE D THERAPEUT 95723 SHIRA SILVA IC PX /> 9 [facility] AREAS INC INC EACH 15 MIN EXERCISES APPLICATI 31339 SHIRA SILVA ON 9 [facility] MODALITY INC INC 1/> AREAS HOT/COLD PACKS APPLICATI 47981 SHIRA SILVA ON 9 [facility] MODALITY INC INC 1/> AREAS HOT/COLD PACKS THERAPEUT 24290 SHIRA SILVA IC PX 1/> 9 [facility] AREAS INC INC EACH 15 MIN EXERCISES APPL 32679 SHIRA SILVA MODALITY 9 [facility] 1/> AREAS INC INC ELEC STIMJ UNATTENDE D URNLS DIP 34096 FAMILY YAJAIRA, 9 CARE R NII STICK/TAB ASSOCIATE LET RGNT S NON-AUTO W/O MICRSCP CULTURE 20069 COMBINED COMBINED BACTERIAL 9 PHYSICIAN PHYSICIAN S LAB S LAB QUANTTATI VE COLONY COUNT URINE URNLS DIP 95789 FAMILY YAJAIRA, 9 CARE R NII STICK/TAB ASSOCIATE LET RGNT S NON-AUTO W/O MICRSCP APPL 70647 SHIRA SILVA MODALITY 9 [facility] 1/> AREAS INC INC ELEC STIMJ UNATTENDE D THERAPEUT 45077 SHIRA SILVA IC PX 1/> 9 [facility] AREAS INC INC EACH 15 MIN EXERCISES APPLICATI 53673 SHIRA SILVA ON 9 [facility] MODALITY INC INC 1/> AREAS HOT/COLD PACKS MANUAL 08780 SHIRA SILVA THERAPY 9 [facility] TQS 1/> INC INC REGIONS EACH 15 MINUTES THERAPEUT 52837 SHIRA SILVA IC PX /> 9 [facility] AREAS INC INC EACH 15 MIN EXERCISES THERAPEUT 56144 SHIRA HEARDON IC PX /> 9 [facility] AREAS INC INC EACH 15 MIN EXERCISES APPL 08417 SHIRA SILVA MODALITY 9 [facility] 1/> AREAS INC INC ELEC STIMJ UNATTENDE D MANUAL 29231 SHIRA SILVA THERAPY 9 [facility] TQS 1/> INC INC REGIONS EACH 15 MINUTES APPLICATI 38740 SH[facility]A SILVA ON 9 [facility] MODALITY INC INC 1/> AREAS HOT/COLD PACKS MANUAL 56833 SHIRA SILVA THERAPY 9 [facility] TQS 1/> INC INC REGIONS EACH 15 MINUTES THERAPEUT 45926 SHIRA SILVA IC PX 1/> 9 [facility] INC EACH 15 MIN EXERCISES THERAPEUT 73273 SHIRA HEARDON IC PX /> 9 [facility] INC EACH 15 MIN EXERCISES PHYSICAL 21185 SHIRA SILVA THERAPY 9 [facility] EVALUATIO INC INC N ANKLE L1930 PROSTHETI PROSTHETI FOOT 8 C&ORTHOTI C&ORTHOTI ORTHOTIC C C PLASTIC/O ASSOCIATE ASSOCIATE MATL S,LLC S,LLC PREFAB RADEX 75017 [facility] 8 Y Y [facility]PLE[facility] MINIMUM 3 VIEWS HOSPITAL 88241 MATEO ARNOLD, DISCHARGE 8 MEDICAL ANDRES M DAY SERV MANAGEMEN FOUNDATIO T 30 MIN/< [place] [address] MATEO MCCORMICKS, ABDOMEN 8 MEDICAL MIKEY W/CONTRAS SERV T FOUNDATIO MATERIAL CT PELVIS [address]159 [place], 8 MEDICAL MIKEY W/CONTRAS SERV T FOUNDATIO MATERIAL INITIAL 41152 [place] INPATIENT 8 MEDICAL , JANAE CONSULT SERV R NEW/ESTAB FOUNDATIO PT 55 MIN SBSQ 17275 [facility] 8 [facility] CARE/DAY SERV 25 FOUNDATIO MINUTES INITIAL 07691 [facility] 8 MEDICAL [facility] CARE/DAY SERV 70 FOUNDATIO MINUTES INFUSION 0011 [facility] 8 Y Y [facility] [place] [address] SHIRA SHIRA ABDOMEN 8 [facility] W/CONTRAS INC INC T MATERIAL BLOOD 08884 FAMILY YAJAIRA, COUNT 8 CARE R NII COMPLETE ASSOCIATE AUTO&AUTO S DIFRNTL WBC CT PELVIS 65427 SHIRA SILVA 8 [facility] W/CONTRAS INC INC T MATERIAL 3D 72705 SHIRA SILVA RENDERING 8 [facility] INC INC W/INTERP& POSTPROC DIFF WORK STATION BLOOD 47844 FAMILY OCONNOR, COUNT 8 CARE ALEKSANDR T COMPLETE ASSOCIATE AUTO&AUTO S DIFRNTL WBC BLOOD 26156 Heidi REDD COUNT 8 CARE G COMPLETE ASSOCIATE AUTO&AUTO S DIFRNTL WBC PROTHROMB 60912 Heidi REDD IN TIME 8 CARE G ASSOCIATE S THROMBOPL 97286 COMBINED COMBINED ASTIN 8 PHYSICIAN PHYSICIAN TIME S LAB S LAB PARTIAL PLASMA/WH OLE BLOOD Encounters Encounter Start End Date Code Location Performer Type Date OFFICE 55270 FAMILY OCONNOR OUTPATIEN 7 7 CARE T VISIT ASSOCIATE 25 S MINUTES OFFICE 46074 FAMILY ALYSSA OUTPATIEN 7 7 CARE T VISIT ASSOCIATE 15 S MINUTES OFFICE 16263 FAMILY WARE OUTPATIEN 7 7 CARE T VISIT ASSOCIATE 15 S MINUTES HOSPITAL SHIRA - 7 7 [facility] OUTPATIEN INC T EMERGENCY 68325 SHIRA 7 7 [facility] DEPARTMEN INC T VISIT HIGH/URGE NT SEVERITY EMERGENCY 96401 YAYA [facility] DEPT 7 7 PHYSICIAN U VISIT S, PLLC HIGH SEVERITY& THREAT FUNCJ OFFICE 63390 FAMILY YAJAIRA OUTPATIEN 7 7 CARE T VISIT ASSOCIATE 15 S MINUTES OFFICE 57944 FAMILY WARE OUTPATIEN 7 7 CARE T VISIT ASSOCIATE 15 S MINUTES OFFICE 90178 FAMILY YAJAIRA OUTPATIEN 7 7 CARE T VISIT ASSOCIATE 15 S MINUTES OFFICE 25297 FAMILY MULBERRY OUTPATIEN 6 6 CARE T VISIT ASSOCIATE 15 S MINUTES OFFICE 36149 FAMILY YAJAIRA OUTPATIEN 6 6 CARE T VISIT ASSOCIATE 15 S MINUTES EMERGENCY 86557 [place] LISA 6 6 MEDICAL DEPARTMEN SERV T VISIT FOUNDATIO LOW/MODER N SEVERITY HOSPITAL - 6 6 [facility] OUTPATIEN E T HOSPITALS EMERGENCY 87520 6 6 [facility] DEPARTMEN E T VISIT HOSPITALS HIGH/URGE NT SEVERITY OFFICE 06857 [facility] HARP OUTPATIEN 6 6 PHYSICIAN WENDY T NEW 10 S GROUP MINUTES OFFICE 20560 FAMILY ISAMAR OUTPATIEN 6 6 CARE T VISIT ASSOCIATE 15 S MINUTES OFFICE 48832 FAMILY ISAMAR OUTPATIEN 6 6 CARE TAR T VISIT ASSOCIATE 15 S MINUTES OFFICE 37851 FAMILY ISAMAR OUTPATIEN 6 6 CARE TAR T VISIT ASSOCIATE 15 S MINUTES OFFICE 02571 FAMILY CROWDY OUTPATIEN 6 6 CARE CRI T VISIT ASSOCIATE 15 S MINUTES OFFICE 06804 FAMILY MULBERRY OUTPATIEN 6 6 CARE NEW T VISIT ASSOCIATE 15 S MINUTES OFFICE 45285 FAMILY ISAMAR OUTPATIEN 6 6 CARE TAR T VISIT ASSOCIATE 15 S MINUTES OFFICE 28357 FAMILY LISA OUTPATIEN 6 6 CARE PAUL T VISIT ASSOCIATE 15 S MINUTES OFFICE 02202 FAMILY ISAMAR OUTPATIEN 6 6 CARE TAR T VISIT ASSOCIATE 15 S MINUTES OFFICE 31758 FAMILY LISA OUTPATIEN 6 6 CARE PAUL T VISIT ASSOCIATE 15 S MINUTES OFFICE 69111 FAMILY LISA OUTPATIEN 6 6 CARE PAUL T VISIT ASSOCIATE 15 S MINUTES EMERGENCY 75434 [place] ECKERLINE 6 6 MEDICAL [facility] SERV T VISIT FOUNDATIO MODERATE N SEVERITY [facility] - 6 6 [facility] 25384 FAMILY YAJAIRA OUTPATIEN 6 6 CARE R H T VISIT ASSOCIATE 15 S MINUTES EMERGENCY 09814 YAYA PAZ 6 6 PHYSICIAN U NAM DEPARTG. V[facility] S, [facility] T VISIT MODERATE SEVERITY OFFICE 05037 FAMILY SIAMAR OUTPATIEN 6 6 CARE TAR T VISIT ASSOCIATE 15 S MINUTES OFFICE 46194 FAMILY LSIA OUTPATIEN 6 6 CARE PAUL T VISIT ASSOCIATE 10 S MINUTES [facility]OSP[facility] - [facility] 6 [facility] - 6 6 [facility] - 6 6 [facility] - 6 6 [facility] OFFICE 73411 FAMILY LISA OUTPATIEN 6 6 CARE PAUL T VISIT ASSOCIATE 15 S MINUTES HOSPITAL [facility] - 6 6 [facility] - 6 6 [facility] 6 6 [facility] - 6 6 [facility] OFFICE 48249 FAMILY LISA OUTPATIEN 6 6 CARE PAUL T VISIT ASSOCIATE 15 S MINUTES EMERGENCY 98078 YAYA PAZ 6 6 PHYSICIAN Julita NO S, [facility] T VISIT HIGH/URGE NT SEVERITY [facility]OSPITAL [facility] - 6 6 [facility] EMERGENCY 32840 [facility] 6 6 [facility] T VISIT MODERATE SEVERITY OFFICE 51066 FAMILY LISA OUTPATIEN 6 6 CARE PAUL T VISIT ASSOCIATE 15 S MINUTES EMERGENCY 37227 YAYA MARTINEZ 6 6 PHYSICIAN JR TYRONE NO S, [facility] T VISIT HIGH/URGE NT SEVERITY OFFICE 79340 FAMILY YAJAIRA OUTPATIEN 6 6 CARE R H T VISIT ASSOCIATE 15 S MINUTES OFFICE 83221 FAMILY CROWDY OUTPATIEN 6 6 CARE CRI T VISIT ASSOCIATE 15 S MINUTES OFFICE 10866 FAMILY CROWDY OUTPATIEN 6 6 CARE CRI T VISIT ASSOCIATE 15 S MINUTES OFFICE 50459 FAMILY YAJAIRA OUTPATIEN 6 6 CARE R H T VISIT ASSOCIATE 15 S MINUTES OFFICE 73137 FAMILY CROWDY OUTPATIEN 6 6 CARE CRI T VISIT ASSOCIATE 15 S MINUTES OFFICE 10643 FAMILY LISA OUTPATIEN 5 5 CARE PAUL T VISIT ASSOCIATE 15 S MINUTES OFFICE 08863 FAMILY CROWDY OUTPATIEN 5 5 CARE CRI T VISIT ASSOCIATE 15 S MINUTES OFFICE 94076 FAMILY YAJAIRA OUTPATIEN 5 5 CARE R H T VISIT ASSOCIATE 15 S MINUTES OFFICE 48174 FAMILY CROWDY OUTPATIEN 5 5 CARE CRI T VISIT ASSOCIATE 15 S MINUTES OFFICE 90323 FAMILY CROWDY OUTPATIEN 5 5 CARE CRI T VISIT ASSOCIATE 15 S MINUTES OFFICE 37049 [facility] PETTEY OUTPATIEN 5 5 PHYSICIAN MIKA T VISIT S GROUP 15 MINUTES EMERGENCY 32207 YAYA DE LA VEGA 5 5 PHYSICIAN [facility] T VISIT MODERATE SEVERITY OFFICE 03527 [facility] PETTEY OUTPATIEN 5 5 PHYSICIAN MIKA Walker NEW 20 S GROUP MINUTES HOSPITAL [facility] - 5 5 [facility] T OFFICE 35856 FAMILY LISA OUTPATIEN 5 5 CARE PAUL T VISIT ASSOCIATE 25 S MINUTES OFFICE 91255 FAMILY YAJAIRA OUTPATIEN 5 5 CARE R H T VISIT ASSOCIATE 15 S MINUTES OFFICE 03202 [place] MICHOACANO OUTPATIEN 5 5 MEDICAL ALLEN T VISIT SERV 25 FOUNDATIO MINUTES HOSPITAL UNIVERSIT - 5 5 Y OUTPATIEN HOSPITAL T OFFICE 97602 UNIVERSIT OUTPATIEN 5 5 Y T VISIT HOSPITAL 10 MINUTES OFFICE 64879 FAMILY YAJAIRA OUTPATIEN 5 5 CARE R H T VISIT ASSOCIATE 15 S MINUTES OFFICE 38430 FAMILY CROWDY OUTPATIEN 5 5 CARE CRI T VISIT ASSOCIATE 15 S MINUTES OFFICE 81140 FAMILY LISA J OUTPATIEN 5 5 CARE G T VISIT ASSOCIATE 15 S MINUTES HOSPITAL [facility] - 5 5 [facility] OUTPATIEN INC T EMERGENCY 98737 [facility] 5 5 [facility] DEPARTMEN INC T VISIT MODERATE SEVERITY EMERGENCY 16677 SHIRA DE LA VEGA 5 5 [facility] T VISIT P LOW/MODER SEVERITY OFFICE 91423 FAMILY MULBERRY OUTPATIEN 4 4 CARE NEW T VISIT ASSOCIATE 15 S MINUTES OFFICE 45049 FAMILY YAJAIRA OUTPATIEN 4 4 CARE R H T VISIT ASSOCIATE 15 S MINUTES OFFICE 07197 FAMILY MULBERRY OUTPATIEN 4 4 CARE NEW T VISIT ASSOCIATE 15 S MINUTES OFFICE 81363 FAMILY OUTPATIEN 4 4 CARE T VISIT ASSOCIATE 15 S MINUTES OFFICE 71700 FAMILY YAJAIRA OUTPATIEN 4 4 CARE R H T VISIT ASSOCIATE 15 S MINUTES OFFICE 51205 LISA J OUTPATIEN 4 4 G T VISIT 15 MINUTES OFFICE 83666 MULBERRY MULBERRY OUTPATIEN 4 4 NEW NEW T VISIT 15 MINUTES OFFICE 36289 CINTRON CINTRON OUTPATIEN 4 4 ERIC ERIC T VISIT 15 MINUTES OFFICE 93524 MULBERRY MULBERRY OUTPATIEN 4 4 NEW NEW T VISIT 15 MINUTES OFFICE 10627 LISA GONZALEZ J OUTPATIEN 4 4 G G T VISIT 15 MINUTES HOSPITAL [facility] - 4 4 [facility] OUTPATIEN INC T OFFICE 99632 FAMILY OUTPATIEN 3 3 CARE T VISIT ASSOCIATE 15 S MINUTES OFFICE 04555 MULBERRY MULBERRY OUTPATIEN 3 3 NEW NEW T VISIT 15 MINUTES OFFICE 56310 FAMILY LISA OUTPATIEN 3 3 CARE PAUL T VISIT ASSOCIATE 15 S MINUTES OFFICE 93887 [place] ROMOND OUTPATIEN 3 3 MEDICAL EDW T VISIT SERV 25 FOUNDATIO MINUTES N OFFICE 61296 YAJAIRA YAJAIRA OUTPATIEN 3 3 R H R H T VISIT 15 MINUTES OFFICE 20280 ABDULAZIZ CINTRON OUTPATIEN 3 3 ERIC ERIC T VISIT 15 MINUTES OFFICE 77061 KMSF ABDULAZIZ OUTPATIEN 3 3 NURSE ERIC T VISIT PRACTITIO 15 NER GR MINUTES HOSPITAL UNIVERSIT - 3 3 Y [facility] T OFFICE 40949 LISA Gordon OUTPATIEN 3 3 G G T VISIT 10 MINUTES OFFICE 70091 LISA Gordon OUTPATIEN 3 3 G G T VISIT 15 MINUTES HOSPITAL [facility] - 3 3 [facility] - 3 3 [facility] OFFICE 79022 ABDULAZIZ CINTRON OUTPATIEN 3 3 ERIC ERIC T VISIT 15 MINUTES OFFICE 68762 MULMARSHA OCONNOR OUTPATIEN 3 3 NEW NEW T VISIT 15 MINUTES OFFICE 19534 SHIRA SILVA OUTPATIEN 2 2 [facility] T VISIT CENTER CENTER 10 MINUTES [facility] UNIVERSIT - 2 2 Y [facility] SHIRA - 2 2 [facility] OUTPATIEN [facility] EMERGENCY 24408 MATEO [place] 2 2 MEDICAL NEW DEPARTMEN SERV T VISIT FOUNDATIO MODERATE SEVERITY EMERGENCY 53697 UNIVERSIT DEPT 2 2 Y VISIT HOSPITAL HIGH SEVERITY& THREAT [facility] UNIVERSIT - 2 2 Y [facility]IR[facility] - 2 2 [facility] OUTPATIEN [facility] OFFICE 40888 ABDULAZIZ CINTRON OUTPATIEN 2 2 ERIC ERIC T VISIT 15 MINUTES HOSPITAL UNIVERSIT - 2 2 Y [facility] T OFFICE 71081 BRENDA FREEMANGH CONSULTAT 2 2 LUCIAN LUCIAN ION NEW/ESTAB PATIENT 40 MIN OFFICE 50362 CAM LEVY OUTPATIEN 2 2 SRI SRI T VISIT 25 MINUTES HOSPITAL UNIVERSIT - 2 2 Y [facility] T OFFICE 04306 FAMILY OUTPATIEN 2 2 CARE T VISIT ASSOCIATE 15 S MINUTES OFFICE 25642 ABDULAZIZ CINTRON OUTPATIEN 2 2 ERIC ERIC T VISIT 15 MINUTES OFFICE 00684 WARE WARE OUTPATIEN 2 2 KATIUSKA KATIUSKA T VISIT 15 MINUTES OFFICE 64520 LISA Gordon OUTPATIEN 2 2 T VISIT 15 MINUTES OFFICE 79541 LISA GONZALEZ J OUTPATIEN 2 2 T VISIT 15 MINUTES HOSPITAL [facility] - 2 2 [facility]IEN INC T OFFICE 99801 WARE WARE OUTPATIEN 2 2 KATIUSKA KATIUSKA T VISIT 15 MINUTES HOSPITAL [facility] - 2 2 [facility] OUTPATIEN INC T EMERGENCY 62377 [facility] 2 2 [facility] DEPARTMEN INC T VISIT MODERATE SEVERITY OFFICE 80342 FAMILY WARE OUTPATIEN 2 2 CARE KATIUSKA T VISIT ASSOCIATE 15 S MINUTES HOSPITAL [facility] - 1 1 [facility] OUTPATIEN INC T OFFICE 01308 ABDULAZIZ CINTRON OUTPATIEN 1 1 ERIC ERIC T VISIT 15 MINUTES OFFICE 47649 KAMNAIF MARINE OUTPATIEN 1 1 YESI YESI T NEW 30 MINUTES OFFICE 99233 FAMILY MULBERRY OUTPATIEN 1 1 CARE NEW T VISIT ASSOCIATE 15 S MINUTES OFFICE 49263 FAMILY MULBERRY OUTPATIEN 1 1 CARE NEW T VISIT ASSOCIATE 15 S MINUTES OFFICE 15601 FAMILY MULBERRY OUTPATIEN 1 1 CARE NEW T VISIT ASSOCIATE 15 S MINUTES HOSPITAL [facility] - 1 1 [facility] OUTPATIEN INC T OFFICE 53320 FAMILY YAJAIRA OUTPATIEN 1 1 CARE R H T VISIT ASSOCIATE 15 S MINUTES OFFICE 96263 FAMILY YAJAIRA OUTPATIEN 1 1 CARE R H T VISIT ASSOCIATE 15 S MINUTES OFFICE 57032 FAMILY LISA J OUTPATIEN 1 1 CARE T VISIT ASSOCIATE 15 S MINUTES OFFICE 72658 KMSF CINTRON OUTPATIEN 1 1 NURSE ERIC T VISIT PRACTITIO 15 NER GR MINUTES OFFICE 98763 FAMILY MULBERRY OUTPATIEN 1 1 CARE NEW T VISIT ASSOCIATE 25 S MINUTES OFFICE 59634 MATEO RÍOS OUTPATIEN 1 1 MEDICAL ALLEN T VISIT SERV 15 FOUNDATIO MINUTES OFFICE 97007 FAMILY LISA J OUTPATIEN 0 0 CARE T VISIT ASSOCIATE 15 S MINUTES HOSPITAL [facility] - 0 0 [facility] OUTPATIEN INC T OFFICE 64452 FAMILY YAJAIRA OUTPATIEN 0 0 CARE R H T VISIT ASSOCIATE 15 S MINUTES OFFICE 98260 FAMILY MULBERRY OUTPATIEN 0 0 CARE NEW T VISIT ASSOCIATE 15 S MINUTES HOSPITAL UNIVERSIT - 0 0 Y INPATIENT HOSPITAL OFFICE 36377 FAMILY LISA J OUTPATIEN 0 0 CARE T VISIT ASSOCIATE 15 S MINUTES OFFICE 08731 MATEO RÍOS OUTPATIEN 0 0 MEDICAL ALLEN T VISIT SERV 10 FOUNDATIO MINUTES OFFICE 23439 FAMILY MULBERRY OUTPATIEN 0 0 CARE NEW T VISIT ASSOCIATE 15 S MINUTES HOSPITAL UNIVERSIT - 0 0 Y [facility] T OFFICE 94197 JOHN CINTRON, OUTPATIEN 0 0 NURSE JOSÉ Stephnes T VISIT PRACTITIO 15 NER GROUP MINUTES OFFICE 32990 FAMILY GONZALEZ J OUTPATIEN 0 0 CARE G T VISIT ASSOCIATE 15 S MINUTES OFFICE 03895 FAMILY BRENNANEET, OUTPATIEN 0 0 CARE R NII T VISIT ASSOCIATE 15 S MINUTES OFFICE 26588 [facility]BDUL[facility], OUTPATIEN 0 0 NURSE JOSÉ Stephens T VISIT PRACTITIO 15 NER GROUP MINUTES OFFICE 25707 FAMILY BRENNANEET, OUTPATIEN 0 0 CARE R NII T VISIT ASSOCIATE 15 S MINUTES OFFICE 36442 FAMILY OCONNOR, OUTPATIEN 0 0 CARE ALEKSANDR T T VISIT ASSOCIATE 15 S MINUTES OFFICE 12661 FAMILY GONZALEZ J OUTPATIEN 0 0 CARE G T VISIT ASSOCIATE 15 S MINUTES OFFICE 71031 MATEO ANNY, OUTPATIEN 0 0 MEDICAL EDWARD T VISIT SERV 15 FOUNDATIO MINUTES OFFICE 68673 FAMILY CARSONT, OUTPATIEN 0 0 CARE R NII T VISIT ASSOCIATE 15 S MINUTES HOSPITAL UNIVERSIT - 0 0 Y [facility] T OFFICE 49196 FAMILY BRENNANEET, OUTPATIEN 9 9 CARE R NII T VISIT ASSOCIATE 15 S MINUTES HOSPITAL UNIVERSIT - 9 9 Y [facility] SHIRA - 9 9 [facility] OUTPATIEN [facility] T [facility] B[facility] - 9 9 [facility] OUTPATIEN [facility] T OFFICE 80099 FAMILY OCONNOR, OUTPATIEN 9 9 CARE ALEKSANDR T T VISIT ASSOCIATE 15 S MINUTES HOSPITAL [facility] - 9 9 [facility] OUTPATIEN INC T OFFICE 26166 FAMILY GATES OUTPATIEN 9 9 CARE R NII T VISIT ASSOCIATE 15 S MINUTES OFFICE 76970 JOHN CINTRON OUTPATIEN 9 9 NURSE JOSÉ Stephens T VISIT PRACTITIO 10 NER GROUP MINUTES OFFICE 35116 FAMILY OCONNOR OUTPATIEN 9 9 CARE ALEKSANDR T T VISIT ASSOCIATE 15 S MINUTES OFFICE 96153 [facility] OUTPATIEN 9 9 [facility] T VISIT INC 10 MINUTES HOSPITAL [facility] - 9 9 [facility] OUTPATIEN INC T HOME [facility], 9 9 HOME [facility] T [facility] UNIVERSIT - 9 9 Y [facility] T HOME [facility], 9 9 HOME [facility] T [facility] UNIVERSIT - 9 9 Y [facility] T OFFICE 20135 MATEO LEVY OUTPATIEN 9 9 MEDICAL BIMAL T VISIT SERV 15 FOUNDATIO [facility] H[facility]PITAL UNIVERSIT - 9 9 Y [facility] T OFFICE 99108 Heidi GONZALEZ OUTPATIEN 9 9 CARE G T VISIT ASSOCIATE 15 S MINUTES OFFICE 98613 FAMILY GATES OUTPATIEN 9 9 CARE R NII T VISIT ASSOCIATE 15 S MINUTES OFFICE 73639 MATEO MCCORMICK OUTPATIEN 9 9 MEDICAL EDWARD T VISIT SERV 15 FOUNDATIO [facility]PITAL SHIRA - 9 9 [facility] OUTPATIEN INC T OFFICE 66753 [place] KACI CONSULTBELEN 9 9 MEDICAL JULIETTE T ION SERV NEW/ESTAB FOUNDATIO PATIENT 40 MIN OFFICE 06366 FAMILY YAJAIRA, OUTPATIEN 9 9 CARE R NII T VISIT ASSOCIATE 15 S MINUTES OFFICE 24339 FAMILY MULBERRY, OUTPATIEN 9 9 CARE ALEKSANDR T T VISIT ASSOCIATE 15 S MINUTES OFFICE 29596 FAMILY YAJAIRA, OUTPATIEN 9 9 CARE R NII T VISIT ASSOCIATE 15 S MINUTES HOSPITAL [facility] - 9 9 [facility] OUTPATIEN INC T OFFICE 86924 FAMILY MULBERRY, OUTPATIEN 9 9 CARE ALEKSANDR T T VISIT ASSOCIATE 15 S MINUTES OFFICE 01837 FAMILY MULBERRY, OUTPATIEN 9 9 CARE ALEKSANDR T T VISIT ASSOCIATE 15 S MINUTES HOSPITAL UNIVERSIT - 9 9 Y [facility] T OFFICE 02089 ABEEBSMauricio CINTRON, OUTPATIEN 9 9 NURSE JOSÉ Stephens T VISIT PRACTITIO 10 NER GROUP MINUTES HOSPITAL [facility] - 9 9 [facility] OUTPAT[facility] INC T OFFICE 31173 FAMILY YAJAIRA, OUTPATIEN 9 9 CARE R NII T VISIT ASSOCIATE 15 S MINUTES OFFICE 48634 FAMILY YAJAIRA, OUTPATIEN 9 9 CARE R NII T VISIT ASSOCIATE 15 S MINUTES OFFICE 92463 FAMILY YAJAIRA, OUTPATIEN 9 9 CARE R NII T VISIT ASSOCIATE 15 S MINUTES HOSPITAL [facility] - 9 9 [facility] OUTPATIEN INC T OFFICE 24874 FAMILY YAJAIRA, OUTPATIEN 9 9 CARE R NII T VISIT ASSOCIATE 15 S MINUTES OFFICE 60490 MATEO MCCORMICK, OUTPATIEN 9 9 MEDICAL EDWARD T VISIT SERV 15 FOUNDATIO MINUTES OFFICE 81211 FAMILY YAJAIRA, OUTPATIEN 9 9 CARE R NII T VISIT ASSOCIATE 15 S MINUTES OFFICE 19578 FAMILY YAJAIRA, OUTPATIEN 8 8 CARE R NII T VISIT ASSOCIATE 10 S MINUTES OFFICE 36489 MATEO RÍOS BRIPATIEN 8 8 MEDICAL LEENA J T VISIT SERV 10 FOUNDATIO MINUTES OFFICE 84742 BRI SAEEDPATIEN 8 8 CARE R NII T VISIT ASSOCIATE 15 S MINUTES OFFICE 03692 MATEO MCCORMICK BRIPATIEN 8 8 MEDICAL EDWARD T VISIT SERV 15 FOUNDATIO MINUTES OFFICE 06638 MATEO RÍOS OUTPATIEN 8 8 MEDICAL ELENA Gordon T VISIT SERV 15 FOUNDATIO MINUTES [facility]ERSIT - 8 8 [facility] 8 Y [facility] - 8 8 [facility] OFF[facility] 14183 FAMILY GATES BRIPATIEN 8 8 CARE R NII T VISIT ASSOCIATE 15 S MINUTES OFFICE 19616 BRI SELLERSPATIEN 8 8 CARE ALEKSANDR T T VISIT ASSOCIATE 15 S MINUTES OFFICE 44100 FAMILY OCONNOR OUTPATIEN 8 8 CARE ALEKSANDR T T VISIT ASSOCIATE 15 S MINUTES OFFICE 65139 FAMILY GONZALEZ Heidi OUTPATIEN 8 8 CARE G T VISIT ASSOCIATE 15 S MINUTES OFFICE 09456 FAMILY GATES OUTPATIEN 8 8 CARE R NII T VISIT ASSOCIATE 15 S MINUTES OFFICE 68111 MATEO MCCORMICK BRIPATIEN 8 8 MEDICAL EDWARD T VISIT SERV 15 FOUNDATIO MINUTES
--- OUTSIDE RECORDS SUMMARY | 2017-06-22 19:50 | External Medical Summary Rpt | CCD ---
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 J7185 [facility] BI[facility]X FACTOR 3 VIII PER IU ELB ORTH L3760 ADVANCED ADVANCED W/ADJ 3 TECHNOLOG TECHNOLOG LOCK JNT IES INC IES INC PRFAB W/FIT&ADJ TYPE ORTHOTIC 53302 SHIRA SILVA MGMT&DAREN 3 [facility] [place] UXTR INC INC LXTR&/TRN K EA 15 SUPPLIES A4221 BI[facility] BIORX FOR MAINT 3 NON-INS RX INFUS CATH PER WK INJ AHF/ J7186 BI[facility] BI[facility]X VWF CMPLX 3 PER FACTOR VIII IU BLOOD 45057 MULBERRY MULBERRY COUNT 3 NEW NEW COMPLETE AUTO&AUTO DIFRNTL WBC INJ AHF/ J7186 BI[facility] BI[facility]X VWF CMPLX 2 PER FACTOR VIII IU SUPPLIES A4221 BIORX BIORX FOR MAINT 2 NON-INS RX INFUS CATH PER WK INJ AHF/ J7186 BI[facility]X BIORX VWF CMPLX 2 PER FACTOR VIII IU RADEX 11796 [place] CHEPE ELBOW 2 MEDICAL AMBROSIO COMPLETE SERV MINIMUM 3 FOUNDATIO VIEWS N IIV3 98575 SHIRA SILVA VACCINE 2 [facility] CENTER VIRUS 0.5 ML DOSAGE IM USE APPLICATI 18061 SHIRA SILVA ON 2 [facility] MODALITY INC INC 1/> AREAS HOT/COLD PACKS APPL 78016 SHIRA SHIRA MODALITY 2 [facility] 1/> AREAS INC INC ULTRASOUN D EA 15 MIN MANUAL 54233 SHIRA SHIRA THERAPY 2 [facility] TQS 1/> INC INC REGIONS EACH 15 MINUTES E-STIM G0283 SHIRA SHIRA 1/> AREAS 2 [facility] OTH THAN INC INC WND CARE PART TX PLAN INJ AHF/ J7186 BIORX BIORX VWF CMPLX 2 PER FACTOR VIII IU E-STIM G0283 SHIRA SHIRA 1/> AREAS 2 [facility] OTH THAN INC INC WND CARE PART TX PLAN APPL 91448 SHIRA SILVA MODALITY 2 [facility] 1/> AREAS INC INC ULTRASOUN D EA 15 MIN MANUAL 41612 SHIRA SILVA THERAPY 2 [facility] TQS 1/> INC INC REGIONS EACH 15 MINUTES APPLICATI 94647 SHIRA SHIRA ON 2 [facility] MODALITY INC INC 1/> AREAS HOT/COLD PACKS INJ AHF/ J7186 BIORX BIORX VWF CMPLX 2 PER FACTOR VIII IU APPLICATI 96394 SHIRA SHIRA ON 2 [facility] MODALITY INC INC 1/> AREAS HOT/COLD PACKS APPL 32207 SHIRA SHIRA MODALITY 2 [facility] 1/> AREAS INC INC ULTRASOUN D EA 15 MIN MANUAL 05244 SHIRA SILVA THERAPY 2 [facility] TQS 1/> INC INC REGIONS EACH 15 MINUTES E-STIM G0283 SHIRA SILVA 1/> AREAS 2 [facility]OS[facility] OTH THAN INC INC WND CARE PART TX PLAN E-STIM G0283 SHIRA SILVA 1/> AREAS 2 [facility]OS[facility] OTH THAN INC INC WND CARE PART TX PLAN MANUAL 72513 SHIRA SILVA THERAPY 2 [facility] TQS 1/> INC INC REGIONS EACH 15 MINUTES APPLICATI 25631 SHIRA SILVA ON 2 [facility] MODALITY INC INC 1/> AREAS HOT/COLD PACKS APPL 34602 SHIRA SILVA MODALITY 2 [facility] 1/> AREAS INC INC ULTRASOUN D EA 15 MIN APPL 97155 SHIRA SILVA MODALITY 2 [facility] 1/> AREAS INC INC ULTRASOUN D EA 15 MIN MANUAL 17148 SHIRA SILVA THERAPY 2 [facility] TQS 1/> INC INC REGIONS EACH 15 MINUTES APPLICATI 40957 SHIRA SILVA ON 2 [facility] MODALITY INC INC 1/> AREAS HOT/COLD PACKS E-STIM G0283 SHIRA SILVA 1/> AREAS 2 [facility]OS[facility] OTH THAN INC INC WND CARE PART TX PLAN E-STIM G0283 SHIRA SILVA 1/> AREAS 2 [facility] OTH THAN INC INC WND CARE PART TX PLAN APPLICATI 59090 SHIRA SILVA ON 2 [facility] MODALITY INC INC 1/> AREAS HOT/COLD PACKS THERAPEUT 33671 SHIRA SILVA IC PX 1/> 2 [facility] AREAS INC INC EACH 15 MIN EXERCISES APPL 56030 SHIRA SILVA MODALITY 2 [facility] 1/> AREAS INC INC ULTRASOUN D EA 15 MIN MANUAL 44739 SHIRA SILVA THERAPY 2 [facility] TQS 1/> INC INC REGIONS EACH 15 MINUTES INJ AHF/ J7186 BIORX BIORX VWF CMPLX 2 PER FACTOR VIII IU PROTHROMB 86864 [facility]IVERS IN TIME 2 Y Y HOSPITAL HOSPITAL THER 81216 UNIVERS UNIVERS PROPH/DX 2 Y Y NJX IV HOSPITAL HOSPITAL PUSH SINGLE/1S T SBST/DRUG BLOOD 49884 [facility] COUNT 2 Y Y COMPLETE [facility] AUTO&AUTO DIFRNTL WBC THERAPEUT 98698 [facility] IC 2 Y Y INJECTION [facility] IV PUSH EACH NEW DRUG INJECTION J2270 [facility] MORPHINE 2 Y [facility] UP TO 10 MG THROMBOPL 32281 [facility] ASTIN 2 Y Y TIME HOSPITAL HOSPITAL PARTIAL PLASMA/WH OLE BLOOD SEDIMENTA 03615 [facility] TION RATE 2 Y Y RBC [facility] AUTOMATED RADEX 15009 MATEO MERHAR ELBOW 2 MEDICAL GAR COMPLETE SERV MINIMUM 3 FOUNDATIO VIEWS N C-REACTIV 57143 [facility] E PROTEIN 2 Y Y HOSPITAL HOSPITAL COLLECTIO 91153 [facility] N VENOUS 2 Y Y BLOOD [facility] VENIPUNCT URE INJECTION J2405 [facility] 2 Y Y [facility] ON HCL PER 1 MG MANUAL 37437 SHIRA SILVA THERAPY [address] [facility] HOSP TQS 1/> INC INC REGIONS EACH 15 MINUTES APPLICATI 41569 SHIRA SILVA ON [facility] HOSP MODALITY INC INC 1/> AREAS HOT/COLD PACKS PHYSICAL 11519 SHIRA SILVA THERAPY [facility] HOSP EVALUATIO INC INC N PROTHROMB 59077 [facility] IN TIME 2 Y Y HOSPITAL HOSPITAL INJECTION J1170 [facility] 2 Y Y HYDROMORP [facility] KADY UP TO 4 MG RINGERS J7120 [facility] LACTATE 2 Y Y INFUSION [facility] UP TO 1000 CC ARTHRT 47597 CAM LEVY ELBOW 2 SRI SRI CAPSULAR EXCISION CAPSULAR RLS SPX THROMBOPL 37657 [facility] ASTIN 2 Y Y TIME HOSPITAL HOSPITAL PARTIAL PLASMA/WH OLE BLOOD UNCLASSIF J3490 [facility] IED DRUGS 2 Y Y HOSPITAL HOSPITAL INJECTION J3010 [facility] FENTANYL 2 Y Y CITRATE [facility] 0.1 MG INJECTION J2710 [facility] 2 Y Y NEOSTIGMI [facility] NE METHYLSUL FATE UP TO 0.5 MG ANESTHESI 29600 COMMON[facility] REILLY A ELBOW 2 LTH KING JOINT ANESTHESI DIAGNOSTI A PSC C ARTHROSCO PIC BLOOD 07933 [facility] COUNT 2 Y Y COMPLETE [facility] AUTOMATED INJECTION J2270 [facility] MORPHINE 2 Y Y SULFATE [facility] UP TO 10 MG INJECTION J2250 [facility] 2 Y Y MIDAZOLAM [facility] HCL PER 1 MG ARTHROSCO 98002 CAM BROOKEKIARRA PY ELBOW 2 SRI SRI SURGICAL SYNOVECTO MY COMPLETE INJECTION J2405 [facility] MG PARTIAL 82679 CAM LEVY EXCISION 2 SRI SRI BONE OLECRANON PROCESS ARTHROSCO 85356 MENDYLEONORMOI BROOKEKIARRA PY ELBOW 2 SRI SRI SURGICAL [place] [address] [facility] CARLOS SURG 2 Y OF [facility] PATHOLOGY [facility] GROSS&SONU ROSCOPIC EXAM INJ AHF/ J7186 BIORX BIORX VWF CMPLX 2 PER FACTOR VIII IU INJ F/ J7186 BI[facility] BI[facility]X VWF CMPLX 2 PER FACTOR VIII IU FACTOR J7190 BI[facility]X BIORX VIII 2 ANTIHEMOP HILIC FACTOR HUMAN PER IU RADEX 17613 [place] CHEPE ELBOW 2 MEDICAL AMBROSIO COMPLETE SERV MINIMUM 3 FOUNDATIO VIEWS N INJ F/ J7186 BI[facility] BIORX VWF CMPLX 2 PER FACTOR VIII IU FACTOR J7190 BI[facility]X BIORX VIII 2 ANTIHEMOP HILIC FACTOR HUMAN PER IU BLOOD 92778 [facility] COUNT 2 [place] COMPLETE AUTO&AUTO DIFRNTL WBC INJ F/ J7186 BIORX BIORX VWF CMPLX 2 PER FACTOR VIII IU BLOOD 70517 LISA Gordon COUNT 2 COMPLETE AUTO&AUTO DIFRNTL WBC RADIOLOGI 07728 SHIRA SILVA C EXAM 2 [facility] CHEST 2 INC INC VIEWS FRONTAL&L ATERAL PROTHROMB 97775 LISA Gordon IN TIME 2 TRANSFERA 25501 LISA CAMARILLO ANT SE 2 ASPARTATE AMINO AST SGOT TRANSFERA 64045 LISA Gordon SE 2 ALANINE AMINO ALT SGPT FACTOR J7190 BIORX BIORX VIII 2 ANTIHEMOP HILIC FACTOR HUMAN PER IU SUPPLIES A4221 BIORX BIORX FOR MAINT 2 NON-INS RX INFUS CATH PER WK INJ F/ J7186 BIORX BIORX VWF CMPLX 2 PER FACTOR VIII IU INJ AHF/ J7186 BIORX BIORX VWF CMPLX 2 PER FACTOR VIII IU FACTOR J7190 BIORX BIORX VIII 2 ANTIHEMOP HILIC FACTOR HUMAN PER IU BLOOD 56991 [place] [place] COUNT 2 [place] COMPLETE AUTO&AUTO DIFRNTL WBC CULTURE 22859 COMBINED COMBINED BACTERIAL 2 PHYSICIAN PHYSICIAN S LA S LA QUANTTATI VE COLONY COUNT URINE URNLS DIP 46492 CHAZ OSORIOOND 2 [place] STICK/TAB LET RGNT NON-AUTO W/O MICRSCP COMPREHEN 07048 SHIRA SILVA SIVE 2 [facility] METABOLIC INC INC PANEL THROMBOPL 77998 SHIRA SILVA ASTIN 2 [facility] TIME INC INC PARTIAL PLASMA/WH OLE BLOOD PROTHROMB 89740 SHIRA RINALDI, IN TIME 2 [facility] JR THO INC URNLS DIP 77268 SHIRA SILVA 2 [facility] STICK/TAB INC INC LET REAGENT AUTO MICROSCOP Y BLOOD 11541 SHIRA SILVA COUNT 2 [facility] COMPLETE INC INC AUTO&AUTO DIFRNTL WBC LOCM Q9967 SHIRA SILVA 300-399 2 [facility] MG/ML INC [place] [address] SYL SYL ABDOMEN & 2 MARA MARA PELVIS W/CONTRAS T MATERIAL FACTOR J7190 BIORX BIORX VIII 2 ANTIHEMOP HILIC FACTOR HUMAN PER IU BLOOD 71896 FAMILY FAMILY COUNT 2 CARE CARE COMPLETE ASSOCIATE ASSOCIATE AUTO&AUTO S S DIFRNTL WBC FACTOR J7190 BI[facility]X BIORX VIII 1 ANTIHEMOP HILIC FACTOR HUMAN PER IU ORTHOTIC 13127 SHIRA SILVA MGMT&DAREN 1 [facility] [place] UXTR INC INC LXTR&/TRN K EA 15 ANK FT L1906 ADVANCED ADVANCED ORTHOS 1 TECHNOLOG TECHNOLOG MX-LIG IES INC IES INC ANK SUPT PREFB OFF SHELF BLOOD 42096 FAMILY FAMILY COUNT 1 CARE CARE COMPLETE ASSOCIATE ASSOCIATE AUTO&AUTO S S DIFRNTL WBC IAADIADOO 69544 FAMILY MULBERRY 1 CARE ENW STREPTOCO ASSOCIATE CCUS S GROUP A BLOOD 81958 FAMILY FAMILY COUNT 1 CARE CARE COMPLETE ASSOCIATE ASSOCIATE AUTO&AUTO S S DIFRNTL WBC BLOOD 00989 SHIRA SILVA OCCULT 1 [facility] PEROXIDAS INC INC E ACTV QUAL FECES 1-3 SPEC BLOOD 65853 FAMILY FAMILY COUNT 1 CARE CARE COMPLETE ASSOCIATE ASSOCIATE AUTO&AUTO S S DIFRNTL WBC IAADIADOO 60324 FAMILY ZEESHANBERRY 1 CARE NEW STREPTOC[place] [address] SHIRA SILVA CLOSTRIDI 1 [facility] [place] [address] SHIRA SILVA ROTAVIRUS 1 [facility] INC INC IAADIADOO 05449 FAMILY YAJAIRA 1 CARE R H STREPTOCO ASSOCIATE CCUS S GROUP A IAADIADOO 45817 FAMILY LISA Gordon 1 CARE STREPTOCO ASSOCIATE CCUS S GROUP A RADIOLOGI 82208 [facility] C EXAM 0 MEDICAL MARA CHEST 2 IMAGING VIEWS ASS FRONTAL&L ATERAL IAADIADOO 17009 FAMILY MULBERRY 0 CARE NEW STREPTOCO ASSOCIATE CCUS S GROUP A BLOOD 68668 FAMILY MULBERRY COUNT 0 CARE NEW COMPLETE ASSOCIATE AUTO&AUTO S DIFRNTL WBC ARTHROSCO 70992 [place] MICHOACANO PY ANKLE 0 MEDICAL ALLEN SURGICAL SERV DEBRIDEME FOUNDATIO NT LIMITED ANESTHESI 91207 [place] YADIRA A 0 MEDICAL JOSH ARTHROSCO SERVICES PIC PROCEDURE ANKLE & FOOT OTH LOCAL 8087 [facility] 0 Y Y EXCISION/ HOSPITAL HOSPITAL DESTRUCTI ON LESION ANK JOINT IAADIADOO 70961 FAMILY LISA J 0 CARE STREPTOCO ASSOCIATE CCUS S GROUP A BLOOD 87457 FAMILY FAMILY COUNT 0 CARE CARE COMPLETE ASSOCIATE ASSOCIATE AUTO&AUTO S S DIFRNTL WBC RADEX 99433 [facility] ANKLE 0 Y Y [facility] MINIMUM 3 VIEWS 25 30310 LAB SHANI LAB SHANI HYDROXY 0 AMERIC AMERIC INCLUDES HOLDING HOLDING FRACTIONS IF PERFORMED THERAPEUT 05136 [facility] IC PX 1/> [address] [facility] EACH 15 MIN EXERCISES PHYSICAL 55466 [facility] 9 [facility] N THERAPEUT 74495 SHIRA SILVA IC PX 1/> 9 [facility] AREAS INC INC EACH 15 MIN EXERCISES APPL 47611 SHIRA SILVA MODALITY 9 [facility] 1/> AREAS INC INC ULTRASOUN D EA 15 MIN APPLICATI 80984 SHIRA SILVA ON 9 [facility] MODALITY INC INC 1/> AREAS HOT/COLD PACKS APPL 60077 SHIRA SILVA MODALITY 9 [facility] 1/> AREAS INC INC ELEC STIMJ UNATTENDE D RADEX 13138 [facility] SYL, ELBOW 9 MEDICAL ROLANDO COMPLETE IMAGING MINIMUM 3 ASSOCIATE VIEWS S APPL 64587 SHIRA SILVA MODALITY 9 [facility] 1/> AREAS INC INC ELEC STIMJ UNATTENDE D APPL 59609 SHIRA SILVA MODALITY 9 [facility] 1/> AREAS INC INC ULTRASOUN D EA 15 MIN APPLICATI 68038 SHIRA SILVA ON 9 [facility] MODALITY INC INC 1/> AREAS HOT/COLD PACKS THERAPEUT 95919 SHIRA SILVA IC PX 1/> 9 [facility] AREAS INC INC EACH 15 MIN EXERCISES THERAPEUT 06660 SHIRA SILVA IC PX 1/> 9 [facility] AREAS INC INC EACH 15 MIN EXERCISES APPL 54767 SHIRA SILVA MODALITY 9 [facility] 1/> AREAS INC INC ULTRASOUN D EA 15 MIN APPLICATI 70460 SHIRA SILVA ON 9 [facility] MODALITY INC INC 1/> AREAS HOT/COLD PACKS APPL 50605 SHIRA SILVA MODALITY 9 [facility] 1/> AREAS INC INC ELEC STIMJ UNATTENDE D APPL 65845 SHIRA SILVA MODALITY 9 [facility] 1/> AREAS INC INC ELEC STIMJ UNATTENDE D APPL 86288 SHIRA SILVA MODALITY 9 [facility] 1/> AREAS INC INC IONTOPHOR ESIS EA 15 MIN PHYSICAL 00133 SHIRA SILVA THERAPY 9 [facility] EVALUATIO INC INC N APPLICATI 86162 SHIRA SILVA ON 9 [facility] MODALITY INC INC 1/> AREAS HOT/COLD PACKS BLOOD 99579 FAMILY MULBERRY, COUNT 9 CARE ALEKSANDR T COMPLETE ASSOCIATE AUTO&AUTO S DIFRNTL WBC APPL 57157 SHIRA SILVA MODALITY 9 [facility] 1/> AREAS INC INC ULTRASOUN D EA 15 MIN BLOOD 56325 FAMILY YAJAIRA, COUNT 9 CARE R NII COMPLETE ASSOCIATE AUTO&AUTO S DIFRNTL WBC INITIAL 58811 [facility] OBSERVATI 9 Y Y ON HOSPITAL HOSPITAL CARE/DAY 30 MINUTES INJECTION J2997 [facility] 9 Y [facility] RECOMBINA NT 1 MG UNCLASSIF J3490 [facility] IED DRUGS 9 Y [facility] INJECTION J3010 [facility] FENTANYL 9 Y Y CITRATE [facility] 0.1 MG ARTHROSCO 23599 [facility] PY ELBOW 9 Y Y SURGICAL [facility] SYNOVECTO MY COMPLETE UNLISTED 30524 [facility] PROCEDURE 9 Y Y HOSPITAL HOSPITAL ARTHROSCO PY INJECTION J2270 [facility] MORPHINE 9 Y Y SULFATE [facility] UP TO 10 MG INJECTION J2795 [facility] HYDR[facility] 1 MG INJECTION J2175 [facility] 9 Y Y MEPERIDIN [facility] E HCL PER 100 MG ANESTHESI 13020 Reid ZIEGLER 9 MEDICAL JULIETTE Desai OPEN/SURG SERVICES ARTHRS RADICAL PROC ELBOW EXCISION 05727 MATEO CAM RADIAL 9 MEDICAL [facility] HEAD SERV FOUNDATIO RAD RESCJ 48250 MATEO LEVY CAPSL 9 [facility]ICAL [facility] TISS&HTRT SERV PC [place] [address] [facility] SURG 9 Y Y PATHOLOGY [facility] GROSS&SONU ROSCOPIC EXAM DECALCIFI 01379 [facility] CATION 9 Y Y [facility]PITAL INJECTION J2405 [facility] 9 [facility] PER 1 MG FACTOR 00165 [facility] INHIBITOR 9 Y Y TEST [facility] INSJ PRPH 84901 [facility] CVC W/O 9 Y Y SUBQ [facility] PORT/BURN OUT TENDER LACE AGE 6 YR/> BLOOD 11006 [facility] COUNT 9 Y Y [facility] AUTO&AUTO DIFRNTL WBC RADIOLOGI 70747 [facility] Giselle MELGOZA EXAM 9 Y OF CHICAN CHEST 2 [facility] FRONTAL&L ATERAL RADEX 70794 [facility] ELBOW [address] [facility] BLOOD 85473 FAMILY LISA, J COUNT 9 CARE G COMPLETE ASSOCIATE AUTO&AUTO S DIFRNTL WBC APPL 83807 SHIRA [facility]ARDON MODALITY 9 [facility] 1/> AREAS INC INC ULTRASOUN D EA 15 MIN THERAPEUT 18106 SHIRA SILVA IC PX > 9 [facility] AREAS INC INC EACH 15 MIN EXERCISES APPL 28337 SHIRA SHIRA MODALITY 9 [facility] 1/> AREAS INC INC IONTOPHOR ESIS EA 15 MIN PHYSICAL 16303 SHIRA [facility]ARDON THERAPY 9 [facility] EVALUATIO INC INC N MANUAL 82843 SHIRA [facility]ARDON THERAPY 9 [facility] TQS 1/> INC INC REGIONS EACH 15 MINUTES APPL 96463 SHIRA [facility]ON MODALITY 9 [facility] 1/> AREAS INC INC ULTRASOUN D EA 15 MIN THERAPEUT 81833 SHIRA HEARDON IC PX 1/> 9 [facility] AREAS INC INC EACH 15 MIN EXERCISES APPL 84501 SHIRA SILVA MODALITY 9 [facility]OS[facility] 1/> AREAS INC INC IONTOPHOR ESIS EA 15 MIN RADIOLOGI 31955 MATEO TOVAR C 9 MEDICAL SERENITY N EXAMINATI SERV ON KNEE 3 FOUNDATIO VIEWS RADIOLOGI 81068 MATEO LA C 9 MEDICAL SERENITY N EXAMINATI SERV ON KNEE FOUNDATIO 1/2 VIEWS MRI ANY 68475 ROL[facility]O C SYL, JT LOWER 9 SYL ROL[place]O EXTREM W/O CONTRAST MATRL BLOOD 61825 FAMILY MULBERRY, COUNT 9 CARE ALEKSANDR T COMPLETE ASSOCIATE AUTO&AUTO S DIFRNTL WBC COLLECTIO 60628 FAMILY MULBERRY, N 9 CARE ALEKSANDR T CAPILLARY ASSOCIATE BLOOD S SPECIMEN RADIOLOGI 60825 SHIRA SHIRA C 9 [facility] EXAMINATI INC INC ON KNEE 3 VIEWS BLOOD 58887 FAMILY MULBERRY, COUNT 9 CARE ALEKSANDR T COMPLETE ASSOCIATE AUTO&AUTO S DIFRNTL WBC COLLECTIO 74334 FAMILY MULBERRY, N 9 CARE ALEKSANDR T CAPILLARY ASSOCIATE BLOOD S SPECIMEN RADEX 74962 UNIVERSIT DIPTI, ELBOW 2 9 Y OF [facility] APPLICATI 78868 SHIRA SILVA ON 9 [facility] MODALITY INC INC 1/> AREAS HOT/COLD PACKS THERAPEUT 99689 SHIRA SILVA IC PX 1/> 9 [facility] AREAS INC INC EACH 15 MIN EXERCISES APPL 14239 SHIRA SILVA MODALITY 9 [facility] 1/> AREAS INC INC ELEC STIMJ UNATTENDE D APPL 51175 SHIRA SILVA MODALITY 9 [facility] 1/> AREAS INC INC ELEC STIMJ UNATTENDE D THERAPEUT 40412 SHIRA SILVA IC PX 1/> 9 [facility] AREAS INC INC EACH 15 MIN EXERCISES APPLICATI 72069 SHIRA SILVA ON 9 [facility] MODALITY INC INC 1/> AREAS HOT/COLD PACKS URNLS DIP 89379 FAMILY YAJAIRA, 9 CARE R NII STICK/TAB ASSOCIATE LET RGNT S NON-AUTO W/O MICRSCP CULTURE 57439 COMBINED COMBINED BACTERIAL 9 PHYSICIAN PHYSICIAN S LAB S LAB QUANTTATI VE COLONY COUNT URINE URNLS DIP 70666 FAMILY YAJAIRA, 9 CARE R NII STICK/TAB ASSOCIATE LET RGNT S NON-AUTO W/O MICRSCP APPL 96335 [facility] S[facility]VA [facility]ALITY 9 [facility] 1/> AREAS INC INC ELEC STIMJ UNATTENDE D APPLICATI 97807 [facility] SILVA ON 9 [facility] 1/> AREAS HOT/COLD PACKS THERAPEUT 33682 SHIRA SILVA IC PX 1/> 9 [facility] AREAS INC INC EACH 15 MIN EXERCISES THERAPEUT 08488 SHIRA SILVA IC PX 1/> 9 [facility] AREAS INC INC EACH 15 MIN EXERCISES MANUAL 92770 SH[facility] SILVA THERAPY 9 [facility] TQS 1/> INC INC REGIONS EACH 15 MINUTES MANUAL 46879 [facility]VA THERAPY 9 [facility] TQS 1/> INC INC REGIONS EACH 15 MINUTES THERAPEUT 40888 SHIRA SILVA IC PX /> 9 [facility] AREAS INC INC EACH 15 MIN EXERCISES APPLICATI 87903 [facility] SILVA ON 9 [facility] 1/> AREAS HOT/COLD PACKS APPL 73601 SH[facility] SILVA [facility]ALITY 9 [facility] 1/> AREAS INC INC ELEC STIMJ UNATTENDE D THERAPEUT 92507 SH[facility]A SILVA IC PX /> 9 [facility] AREAS INC INC EACH 15 MIN EXERCISES MANUAL 91312 [facility] SILVA THERAPY 9 [facility] TQS 1/> INC INC REGIONS EACH 15 MINUTES PHYSICAL 20036 [facility] SILVA THERAPY 9 [facility] EVALUATIO INC INC N THERAPEUT 14708 SHIRA HEARDON IC PX 1/> 9 [facility] AREAS INC INC EACH 15 MIN EXERCISES ANKLE L1930 PROSTHETI PROSTHETI FOOT 8 C&ORTHOTI C&ORTHOTI ORTHOTIC C C PLASTIC/O ASSOCIATE ASSOCIATE MATStef S,LLC S,LLC PREFAB RADEX 68740 [facility] ANKLE 8 Y Y COMPLETE [facility] MINIMUM 3 VIEWS HOSPITAL [address] [facility] 8 MEDICAL ANDRES DAY SERV MANAGEMEN FOUNDATIO T 30 MIN/< [place] [address] MATEO MCCORMICKS, ABDOMEN 8 MEDICAL MIKEY W/CONTRAS SERV T FOUNDATIO MATERIAL SBSQ 34564 [facility] 8 [facility] CARE/DAY SERV 25 FOUNDATIO MINUTES INITIAL 76563 [place] [facility] INPATIENT 8 MEDICAL , JANAE CONSULT SERV R NEW/ESTAB FOUNDATIO PT [address] PELVIS 91486 [facility], 8 MEDICAL MIKEY W/CONTRAS SERV T FOUNDATIO MATERIAL INITIAL 82212 [facility] 8 [facility] CARE/DAY SERV 70 FOUNDATIO MINUTES INFUSION 0011 [facility] 8 Y Y [facility] [place] [address] SHIRA SHIRA ABDOMEN 8 [facility] W/CONTRAS INC INC T MATERIAL 3D 22988 SHIRA SILVA RENDERING 8 [facility] INC INC W/INTERP& POSTPROC DIFF WORK STATION BLOOD 07067 FAMILY GATES, COUNT 8 CARE R NII COMPLETE ASSOCIATE AUTO&AUTO S DIFRNTL WBC CT PELVIS 48208 [facility] SILVA 8 [facility] W/CONTRAS INC INC T MATERIAL BLOOD 32742 FAMILY OCONNOR, COUNT 8 CARE ALEKSANDR T COMPLETE ASSOCIATE AUTO&AUTO S DIFRNTL WBC THROMBOPL 39034 COMBINED COMBINED ASTIN 8 PHYSICIAN PHYSICIAN TIME S LAB S LAB PARTIAL PLASMA/WH OLE BLOOD BLOOD 47488 Heidi REDD COUNT 8 CARE G COMPLETE ASSOCIATE AUTO&AUTO S DIFRNTL WBC PROTHROMB 49487 Heidi REDD IN TIME 8 CARE G ASSOCIATE S Encounters Encounter Start End Date Code Location Performer Type Date OFFICE 65629 FAMILY MULBERRY OUTPATIEN 7 7 CARE T VISIT ASSOCIATE 25 S MINUTES OFFICE 46299 FAMILY ALYSSA OUTPATIEN 7 7 CARE T VISIT ASSOCIATE 15 S MINUTES OFFICE 56725 FAMILY WARE OUTPATIEN 7 7 CARE T VISIT ASSOCIATE 15 S MINUTES EMERGENCY 40109 YAYA PAZ DEPT 7 7 PHYSICIAN U VISIT S, PLLC HIGH SEVERITY& THREAT FUNCJ EMERGENCY 67929 SHIRA 7 7 [facility] DEPARTMEN INC T VISIT HIGH/URGE NT SEVERITY HOSPITAL [facility] - 7 7 [facility] OUTPATIEN INC T OFFICE 50987 FAMILY YAJAIRA OUTPATIEN 7 7 CARE T VISIT ASSOCIATE 15 S MINUTES OFFICE 45686 FAMILY WARE OUTPATIEN 7 7 CARE T VISIT ASSOCIATE 15 S MINUTES OFFICE 27263 FAMILY YAJAIRA OUTPATIEN 7 7 CARE T VISIT ASSOCIATE 15 S MINUTES OFFICE 60972 FAMILY MULBERRY OUTPATIEN 6 6 CARE T VISIT ASSOCIATE 15 S MINUTES OFFICE 13727 FAMILY YAJAIRA OUTPATIEN 6 6 CARE T VISIT ASSOCIATE 15 S MINUTES EMERGENCY 53349 6 6 [facility] DEPARTMEN E T VISIT HOSPITALS HIGH/URGE NT SEVERITY EMERGENCY 66898 [facility] 6 6 MEDICAL DEPARTMEN SERV T VISIT FOUNDATIO LOW/MODER N SEVERITY [facility]OSPITAL [facility] - 6 6 [facility] OUTPATIEN E T HOSPITALS OFFICE 21785 [facility] HARP OUTPATIEN 6 6 PHYSICIAN WENDY T NEW 10 S GROUP MINUTES OFFICE 01715 FAMILY ISAMAR OUTPATIEN 6 6 CARE T VISIT ASSOCIATE 15 S MINUTES OFFICE 19846 FAMILY ISAMAR OUTPATIEN 6 6 CARE TAR T VISIT ASSOCIATE 15 S MINUTES OFFICE 91062 FAMILY ISAMAR OUTPATIEN 6 6 CARE TAR T VISIT ASSOCIATE 15 S MINUTES OFFICE [id number] FAMILY CROWDY OUTPATIEN 6 6 CARE CRI T VISIT ASSOCIATE 15 S MINUTES OFFICE 81764 FAMILY MULBERRY OUTPATIEN 6 6 CARE NEW T VISIT ASSOCIATE 15 S MINUTES OFFICE 90544 FAMILY ISAMAR OUTPATIEN 6 6 CARE TAR T VISIT ASSOCIATE 15 S MINUTES OFFICE 63581 FAMILY LISA OUTPATIEN 6 6 CARE PAUL T VISIT ASSOCIATE 15 S MINUTES OFFICE 35465 FAMILY ISAMAR OUTPATIEN 6 6 CARE TAR T VISIT ASSOCIATE 15 S MINUTES OFFICE 40246 FAMILY LISA OUTPATIEN 6 6 CARE PAUL T VISIT ASSOCIATE 15 S MINUTES OFFICE 65615 FAMILY LISA OUTPATIEN 6 6 CARE PAUL T VISIT ASSOCIATE 15 S MINUTES EMERGENCY 54272 [place] ECKERLINE 6 6 MEDICAL JR [facility] SERV T VISIT FOUNDATIO MODERATE N SEVERITY HOSPITAL UNIVERSIT - 6 6 [facility] T OFFICE 83407 FAMILY YAJAIRA OUTPATIEN 6 6 CARE R H T VISIT ASSOCIATE 15 S MINUTES EMERGENCY 19990 YAYA PAZ 6 6 PHYSICIAN U [facility] S, [facility] V[facility]IT MODERATE SEVERITY OFFICE 47385 FAMILY ISAMAR OUTPATIEN 6 6 CARE TAR T VISIT ASSOCIATE 15 S MINUTES OFFICE 07695 FAMILY LISA OUTPATIEN 6 6 CARE PAUL T VISIT ASSOCIATE 10 S MINUTES HOSPITAL [facility] - 6 6 [facility] 6 6 [facility] SHIRA - 6 6 [facility] OUTPATIEN INC T OFFICE 53306 FAMILY LISA OUTPATIEN 6 6 CARE PAUL T VISIT ASSOCIATE 15 S MINUTES HOSPITAL [facility] - 6 6 [facility] SH[facility] - 6 6 [facility] 6 6 [facility] SH[facility] - 6 6 [facility] OFFICE 25293 FAMILY LISA OUTPATIEN 6 6 CARE PAUL T VISIT ASSOCIATE 15 S MINUTES HOSPITAL SHIRA - 6 6 [facility] OUTPATIEN [facility] EMERGENCY 90128 SHIRA 6 6 [facility] T VISIT MODERATE SEVERITY EMERGENCY 00325 YAYA PAZ 6 6 PHYSICIAN Julita [facility] S, [facility] T VISIT HIGH/URGE NT SEVERITY HOSPITAL SHIRA - 6 6 [facility]PAT[facility]EN [facility] OFFICE 92849 FAMILY LISA OUTPATIEN 6 6 CARE PAUL T VISIT ASSOCIATE 15 S MINUTES EMERGENCY 60791 YAYA MARTINEZ 6 6 PHYSICIAN JR [facility] S, [facility] T VISIT HIGH/URGE NT SEVERITY OFFICE 64172 FAMILY YAJAIRA OUTPATIEN 6 6 CARE R H T VISIT ASSOCIATE 15 S MINUTES OFFICE 94450 FAMILY CROWDY OUTPATIEN 6 6 CARE CRI T VISIT ASSOCIATE 15 S MINUTES OFFICE 32083 FAMILY CROWDY OUTPATIEN 6 6 CARE CRI T VISIT ASSOCIATE 15 S MINUTES OFFICE 31879 FAMILY YAJAIRA OUTPATIEN 6 6 CARE R H T VISIT ASSOCIATE 15 S MINUTES OFFICE 67862 FAMILY CROWDY OUTPATIEN 6 6 CARE CRI T VISIT ASSOCIATE 15 S MINUTES OFFICE 57294 FAMILY LISA OUTPATIEN 5 5 CARE PAUL T VISIT ASSOCIATE 15 S MINUTES OFFICE 22703 FAMILY CROWDY OUTPATIEN 5 5 CARE CRI T VISIT ASSOCIATE 15 S MINUTES OFFICE 22915 FAMILY YAJAIRA OUTPATIEN 5 5 CARE R H T VISIT ASSOCIATE 15 S MINUTES OFFICE 56675 FAMILY CROWDY OUTPATIEN 5 5 CARE CRI T VISIT ASSOCIATE 15 S MINUTES OFFICE 22490 FAMILY CROWDY OUTPATIEN 5 5 CARE CRI T VISIT ASSOCIATE 15 S MINUTES OFFICE 10227 [facility] OUTPATIEN 5 5 PHYSICIAN JAM T VISIT S GROUP 15 MINUTES OFFICE 39492 [facility] OUTPATIEN 5 5 PHYSICIAN JAM T NEW 20 S GROUP MINUTES HOSPITAL SH[facility] - 5 5 [facility] OUTPATIEN INC T EMERGENCY 39255 YAYA DE LA VEGA 5 5 PHYSICIAN [facility] T VISIT MODERATE SEVERITY OFFICE 61750 FAMILY LISA OUTPATIEN 5 5 CARE PAUL T VISIT ASSOCIATE 25 S MINUTES OFFICE 16031 FAMILY YAJAIRA OUTPATIEN 5 5 CARE R H T VISIT ASSOCIATE 15 S MINUTES OFFICE 82157 [place] MICHOACANO OUTPATIEN 5 5 MEDICAL ALLEN T VISIT SERV 25 FOUNDATIO MINUTES HOSPITAL UNIVERSIT - 5 5 Y OUTPATIEN HOSPITAL T OFFICE 80592 UNIVERSIT OUTPATIEN 5 5 Y T VISIT HOSPITAL 10 MINUTES OFFICE 59844 FAMILY YAJAIRA OUTPATIEN 5 5 CARE R H T VISIT ASSOCIATE 15 S MINUTES OFFICE 84415 FAMILY CROWDY OUTPATIEN 5 5 CARE CRI T VISIT ASSOCIATE 15 S MINUTES OFFICE 79141 FAMILY LISA J OUTPATIEN 5 5 CARE G T VISIT ASSOCIATE 15 S MINUTES EMERGENCY 48501 SHIRA 5 5 [facility] DEPARTMEN INC T VISIT MODERATE SEVERITY HOSPITAL SHIRA - 5 5 [facility] OUTPATIEN INC T EMERGENCY 67921 SHIRA DE LA VEGA 5 5 [facility] T VISIT P LOW/MODER SEVERITY OFFICE 72838 FAMILY MULBERRY OUTPATIEN 4 4 CARE NEW T VISIT ASSOCIATE 15 S MINUTES OFFICE 15195 FAMILY YAJAIRA OUTPATIEN 4 4 CARE R H T VISIT ASSOCIATE 15 S MINUTES OFFICE 70807 FAMILY MULBERRY OUTPATIEN 4 4 CARE NEW T VISIT ASSOCIATE 15 S MINUTES OFFICE 26882 FAMILY OUTPATIEN 4 4 CARE T VISIT ASSOCIATE 15 S MINUTES OFFICE 35039 FAMILY YAJAIRA OUTPATIEN 4 4 CARE R H T VISIT ASSOCIATE 15 S MINUTES OFFICE 71958 LISA J OUTPATIEN 4 4 G T VISIT 15 MINUTES OFFICE 01746 MULBERRY MULBERRY OUTPATIEN 4 4 NEW NEW T VISIT 15 MINUTES OFFICE 59642 ABDULAZIZ ESTRADAON OUTPATIEN 4 4 ERIC ERIC T VISIT 15 MINUTES OFFICE 40104 MULBERRY MULBERRY OUTPATIEN 4 4 NEW NEW T VISIT 15 MINUTES OFFICE 95861 LISA GONZALEZ J OUTPATIEN 4 4 G G T VISIT 15 MINUTES HOSPITAL [facility]IRA - 4 4 [facility] OUTPATIEN INC T OFFICE 31440 FAMILY OUTPATIEN 3 3 CARE T VISIT ASSOCIATE 15 S MINUTES OFFICE 62160 MULBERRY MULBERRY OUTPATIEN 3 3 NEW NEW T VISIT 15 MINUTES OFFICE 36694 FAMILY LISA OUTPATIEN 3 3 CARE PAUL T VISIT ASSOCIATE 15 S MINUTES OFFICE 58499 [place] ROMOND OUTPATIEN 3 3 MEDICAL EDW T VISIT SERV 25 FOUNDATIO MINUTES N OFFICE 98153 YAJAIRA YAJAIRA OUTPATIEN 3 3 R H R H T VISIT 15 MINUTES OFFICE 06902 ABDULAZIZ CINTRON OUTPATIEN 3 3 ERIC ERIC T VISIT 15 MINUTES HOSPITAL UNIVERSIT - 3 3 Y [facility] T OFFICE 44185 [facility] ABDULAZIZ OUTPATIEN 3 3 NURSE ERIC T VISIT PRACTITIO 15 NER GR MINUTES OFFICE 24070 LISA Gordon OUTPATIEN 3 3 G G T VISIT 10 MINUTES OFFICE 93112 LISA Gordon OUTPATIEN 3 3 G G T VISIT 15 MINUTES HOSPITAL SH[facility]A - 3 3 [facility] OUTPAT[facility]EN [facility] SHIRA - 3 3 [facility] OUTPATIEN [facility] T OFFICE 30111 ABDULAZIZ CINTRON OUTPATIEN 3 3 ERIC ERIC T VISIT 15 MINUTES OFFICE 84087 MULBERRY MULBERRY OUTPATIEN 3 3 NEW NEW T VISIT 15 MINUTES OFFICE 80145 SHIRA SILVA OUTPATIEN 2 2 [facility] T VISIT CENTER CENTER 10 MINUTES HOSPITAL UNIVERSIT - 2 2 Y [facility] SHIRA - 2 2 [facility] OUTPATIEN [facility] EMERGENCY 78448 MATEO CALLOWAY 2 2 MEDICAL NEW DEPARTMEN SERV T VISIT FOUNDATIO MODERATE SEVERITY HOSPITAL UNIVERSIT - 2 2 Y [facility] EMERGENCY 85916 UNIVERSIT DEPT 2 2 Y VISIT HOSPITAL HIGH SEVERITY& THREAT [facility] - 2 2 [facility] OUTPATIEN [facility] T OFFICE 89728 ABDULAZIZ CINTRON OUTPATIEN 2 2 ERIC ERIC T VISIT 15 MINUTES OFFICE 69845 BRENDA BRENDA CONSULTAT 2 2 LUCIAN LUCIAN ION NEW/ESTAB PATIENT 40 MIN HOSPITAL UNIVERSIT - 2 2 Y [facility] T HOSPITAL UNIVERSIT - 2 2 Y [facility] T OFFICE 97763 CAM LEVY OUTPATIEN 2 2 SRI SRI T VISIT 25 MINUTES OFFICE 09497 FAMILY OUTPATIEN 2 2 CARE T VISIT ASSOCIATE 15 S MINUTES OFFICE 89101 ABDULAZIZ CINTRON OUTPATIEN 2 2 ERIC ERIC T VISIT 15 MINUTES OFFICE 49479 WARE WARE OUTPATIEN 2 2 KATIUSKA KATIUSKA T VISIT 15 MINUTES OFFICE 74345 LISA Godron OUTPATIEN 2 2 T VISIT 15 MINUTES OFFICE 47160 LISA Gordon OUTPATIEN 2 2 T VISIT 15 MINUTES HOSPITAL SHIRA - 2 2 [facility] OUTPATIEN INC T OFFICE 33109 WARE WARE OUTPATIEN 2 2 KATIUSKA KATIUSKA T VISIT 15 MINUTES EMERGENCY 94338 SHIRA 2 2 [facility] DEPARTMEN INC T VISIT MODERATE SEVERITY HOSPITAL SHIRA - 2 2 [facility] OUTPATIEN INC T OFFICE 32802 FAMILY WARE OUTPATIEN 2 2 CARE KATIUSKA T VISIT ASSOCIATE 15 S MINUTES HOSPITAL SHIRA - 1 1 [facility] OUTPATIEN INC T OFFICE 39915 ABDULAZIZ CINTRON OUTPATIEN 1 1 ERIC ERIC T VISIT 15 MINUTES OFFICE 33157 MARINE HUMPHREYNAIF OUTPATIEN 1 1 YESI YESI T NEW 30 MINUTES OFFICE 27289 FAMILY MULBERRY OUTPATIEN 1 1 CARE NEW T VISIT ASSOCIATE 15 S MINUTES OFFICE 08469 FAMILY MULBERRY OUTPATIEN 1 1 CARE NEW T VISIT ASSOCIATE 15 S MINUTES HOSPITAL SHIRA - 1 1 [facility] OUTPATIEN INC T OFFICE 39448 FAMILY MULBERRY OUTPATIEN 1 1 CARE NEW T VISIT ASSOCIATE 15 S MINUTES OFFICE 92718 FAMILY YAJAIRA OUTPATIEN 1 1 CARE R H T VISIT ASSOCIATE 15 S MINUTES OFFICE 52607 FAMILY YAJAIRA OUTPATIEN 1 1 CARE R H T VISIT ASSOCIATE 15 S MINUTES OFFICE 37314 FAMILY LISA J OUTPATIEN 1 1 CARE T VISIT ASSOCIATE 15 S MINUTES OFFICE 17878 ABEBESMauricio CINTRON OUTPATIEN 1 1 NURSE ERIC T VISIT PRACTITIO 15 NER GR MINUTES OFFICE 64211 FAMILY MULBERRY OUTPATIEN 1 1 CARE NEW T VISIT ASSOCIATE 25 S MINUTES OFFICE 13339 MATEO RÍOS OUTPATIEN 1 1 MEDICAL ALLEN T VISIT SERV 15 FOUNDATIO MINUTES OFFICE 37986 FAMILY LISA J OUTPATIEN 0 0 CARE T VISIT ASSOCIATE 15 S MINUTES HOSPITAL [facility]IR[facility] - 0 0 [facility] OUTPATIEN INC T OFFICE 32930 FAMILY YAJAIRA OUTPATIEN 0 0 CARE R H T VISIT ASSOCIATE 15 S MINUTES OFFICE 52305 FAMILY MULBERRY OUTPATIEN 0 0 CARE NEW T VISIT ASSOCIATE 15 S MINUTES HOSPITAL UNIVERSIT - 0 0 Y INPATIENT HOSPITAL OFFICE 77680 FAMILY LISA J OUTPATIEN 0 0 CARE T VISIT ASSOCIATE 15 S MINUTES OFFICE 17368 MATEO RÍOS OUTPATIEN 0 0 MEDICAL ALLEN T VISIT SERV 10 FOUNDATIO MINUTES OFFICE 46634 FAMILY MULBERRY OUTPATIEN 0 0 CARE NEW T VISIT ASSOCIATE 15 S MINUTES HOSPITAL UNIVERSIT - 0 0 Y [facility] T OFFICE 62555 JOHN CINTRON, OUTPATIEN 0 0 NURSE JOSÉ Stephens T VISIT PRACTITIO 15 NER GROUP MINUTES OFFICE 85477 FAMILY GONZALEZ, J OUTPATIEN 0 0 CARE G T VISIT ASSOCIATE 15 S MINUTES OFFICE 93631 FAMILY BRENNANEET, OUTPATIEN 0 0 CARE R NII T VISIT ASSOCIATE 15 S MINUTES OFFICE 34649 [facility] ABDULAZIZ, OUTPATIEN 0 0 NURSE JOSÉ Stephens T VISIT PRACTITIO 15 NER GROUP MINUTES OFFICE 05730 FAMILY BRENNANEET, OUTPATIEN 0 0 CARE R NII T VISIT ASSOCIATE 15 S MINUTES OFFICE 55632 FAMILY OCONNOR, OUTPATIEN 0 0 CARE ALEKSANDR T T VISIT ASSOCIATE 15 S MINUTES OFFICE 86739 FAMILY GONZALEZ, J OUTPATIEN 0 0 CARE G T VISIT ASSOCIATE 15 S MINUTES OFFICE 86967 MATEO ANNY, OUTPATIEN 0 0 MEDICAL EDWARD T VISIT SERV 15 FOUNDATIO MINUTES OFFICE 43820 FAMILY CARSONT, OUTPATIEN 0 0 CARE R NII T VISIT ASSOCIATE 15 S MINUTES HOSPITAL UNIVERSIT - 0 0 Y [facility] T OFFICE 20118 FAMILY BRENNANEET, OUTPATIEN 9 9 CARE R NII T VISIT ASSOCIATE 15 S MINUTES HOSPITAL UNIVERSIT - 9 9 Y [facility]A - 9 9 [facility]EN [facility] 9 9 [facility] - 9 9 [facility] OFFICE 12388 FAMILY MULBERRY, OUTPATIEN 9 9 CARE ALEKSANDR T T VISIT ASSOCIATE 15 S MINUTES OFFICE 91666 FAMILY GATES OUTPATIEN 9 9 CARE R NII T VISIT ASSOCIATE 15 S MINUTES OFFICE 11481 JOHN CINTRON OUTPATIEN 9 9 NURSE JOSÉ Stephens T VISIT PRACTITIO 10 NER GROUP MINUTES OFFICE 43907 FAMILY OCONNOR OUTPATIEN 9 9 CARE ALEKSANDR T T VISIT ASSOCIATE 15 S MINUTES HOSPITAL [facility] - 9 9 [facility] OUTPAT[facility]EN INC T OFFICE 01263 [place] [facility] T VISIT INC 10 MINUTES [facility], 9 9 HOME [facility] T [facility] UNIVERS[facility] - 9 9 Y [facility] T HOME [facility] 9 9 HOME [facility] T [facility] UN[facility]ERS[facility] - 9 9 Y [facility] UNIVERSIT - 9 9 Y [facility] T OFFICE 11251 MATEO CAM OUTPATIEN 9 9 MEDICAL BIMAL T VISIT SERV 15 FOUNDATIO MINUTES OFFICE 88739 Heidi GONZALEZ OUTPATIEN 9 9 CARE G T VISIT ASSOCIATE 15 S MINUTES OFFICE 01197 FAMILY GATES OUTPATIEN 9 9 CARE R NII T VISIT ASSOCIATE 15 S MINUTES OFFICE 03568 MATEO ANNY OUTPATIEN 9 9 MEDICAL EDWARD T VISIT SERV 15 FOUNDATIO MINUTES HOSPITAL [facility] - 9 9 [facility] OUTPATIEN INC T OFFICE 86405 [place] KACI, CONSULTBELEN 9 9 MEDICAL JULIETTE T ION SERV NEW/ESTAB FOUNDATIO PATIENT 40 MIN OFFICE 79332 FAMILY YAJAIRA, OUTPATIEN 9 9 CARE R NII T VISIT ASSOCIATE 15 S MINUTES OFFICE 84264 FAMILY MULBERRY, OUTPATIEN 9 9 CARE ALEKSANDR T T VISIT ASSOCIATE 15 S MINUTES HOSPITAL [facility]A - 9 9 [facility] OUTPATIEN INC T OFFICE 06969 FAMILY YAJAIRA, OUTPATIEN 9 9 CARE R NII T VISIT ASSOCIATE 15 S MINUTES OFFICE 72145 FAMILY MULBERRY, OUTPATIEN 9 9 CARE ALEKSANDR T T VISIT ASSOCIATE 15 S MINUTES OFFICE 93009 FAMILY MULBERRY, OUTPATIEN 9 9 CARE ALEKSANDR T T VISIT ASSOCIATE 15 S MINUTES [facility] 84014 ABEBESMauricio CINTRON, OUTPATIEN 9 9 NURSE JOSÉ Stephens T VISIT PRACTITIO 10 NER GROUP MINUTES HOSPITAL SHIRA - 9 9 [facility] OUTPATIEN INC T OFFICE 62110 FAMILY YAJAIRA, OUTPATIEN 9 9 CARE R NII T VISIT ASSOCIATE 15 S MINUTES OFFICE 56434 FAMILY YAJAIRA, OUTPATIEN 9 9 CARE R NII T VISIT ASSOCIATE 15 S MINUTES OFFICE 64553 FAMILY YAJAIRA, OUTPATIEN 9 9 CARE R NII T VISIT ASSOCIATE 15 S MINUTES HOSPITAL SHIRA - 9 9 [facility] OUTPATIEN INC T OFFICE 37478 FAMILY YAJAIRA, OUTPATIEN 9 9 CARE R NII T VISIT ASSOCIATE 15 S MINUTES OFFICE 48988 MATEO MCCORMICK, OUTPATIEN 9 9 MEDICAL EDWARD T VISIT SERV 15 FOUNDATIO MINUTES OFFICE 73877 FAMILY YAJAIRA, OUTPATIEN 9 9 CARE R NII T VISIT ASSOCIATE 15 S MINUTES OFFICE 79676 FAMILY YAJAIRA, OUTPATIEN 8 8 CARE R NII T VISIT ASSOCIATE 10 S MINUTES OFFICE 12114 MATEO RÍOS BRIPATIPATRICA 8 8 MEDICAL ELENA J T VISIT SERV 10 FOUNDATIO MINUTES OFFICE 31149 BRI SAEEDPATIEN 8 8 CARE R NII T VISIT ASSOCIATE 15 S MINUTES OFFICE 33676 MATEO CASTROKAYLEEN BRIPATIPATRICA 8 8 MEDICAL EDWARD T VISIT SERV 15 FOUNDATIO MINUTES OFFICE 48846 MATEO RÍOS BRIPATIPATRICA 8 8 MEDICAL ELENA J T VISIT SERV 15 FOUNDATIO MINUTES [facility] Y IN[facility]IENT HOSPITAL OFFICE 73748 FAMILY GATES BRIPATIEN 8 8 CARE R NII T VISIT ASSOCIATE 15 S MINUTES [facility] [place] [facility] 60773 BRI SELLERSPATIEN 8 8 CARE ALEKSANDR T T VISIT ASSOCIATE 15 S MINUTES OFFICE 22110 FAMILY OCONNOR BRIPATIPATRICA 8 8 CARE ALEKSANDR T T VISIT ASSOCIATE 15 S MINUTES OFFICE 10342 FAMILY GONZALEZHeidi OUTPATIEN 8 8 CARE G T VISIT ASSOCIATE 15 S MINUTES OFFICE 81643 FAMILY GATES BRIPATIEN 8 8 CARE R NII T VISIT ASSOCIATE 15 S MINUTES OFFICE 01168 MATEO ANNY BRIPATIEN 8 8 MEDICAL EDWARD T VISIT SERV 15 FOUNDATIO MINUTES
--- OUTSIDE RECORDS SUMMARY | 2017-06-22 19:50 | External Medical Summary Rpt | CCD ---
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 INC INC 1/> AREAS HOT/COLD PACKS INJ AHF/ J7186 BIORX BIORX VWF CMPLX 2 PER FACTOR VIII IU APPLICATI 64692 SHIRA SHIRA ON 2 [facility] MODALITY INC INC 1/> AREAS HOT/COLD PACKS APPL 69461 SHIRA SHIRA MODALITY 2 [facility] 1/> AREAS INC INC ULTRASOUN D EA 15 MIN MANUAL 62538 SHIRA SILVA THERAPY 2 [facility] TQS 1/> INC INC REGIONS EACH 15 MINUTES E-STIM G0283 SHIRA SILVA 1/> AREAS 2 [facility] OTH THAN INC INC WND CARE PART TX PLAN E-STIM G0283 SHIRA SILVA 1/> AREAS 2 [facility]OS[facility] OTH THAN INC INC WND CARE PART TX PLAN MANUAL 73442 SHIRA SILVA THERAPY 2 [facility] TQS 1/> INC INC REGIONS EACH 15 MINUTES APPLICATI 47598 SHIRA SILVA ON 2 [facility] MODALITY INC INC 1/> AREAS HOT/COLD PACKS APPL 94489 SHIRA SILVA MODALITY 2 [facility] 1/> AREAS INC INC ULTRASOUN D EA 15 MIN APPL 05781 SHIRA SILVA MODALITY 2 [facility] 1/> AREAS INC INC ULTRASOUN D EA 15 MIN MANUAL 31073 SHIRA SILVA THERAPY 2 [facility] TQS 1/> INC INC REGIONS EACH 15 MINUTES APPLICATI 26899 SHIRA SILVA ON 2 [facility] MODALITY INC INC 1/> AREAS HOT/COLD PACKS E-STIM G0283 SHIRA SILVA 1/> AREAS 2 [facility]OS[facility] OTH THAN INC INC WND CARE PART TX PLAN E-STIM G0283 SHIRA SILVA 1/> AREAS 2 [facility]OS[facility] OTH THAN INC INC WND CARE PART TX PLAN APPLICATI 84986 SHIRA SILVA ON 2 [facility] MODALITY INC INC 1/> AREAS HOT/COLD PACKS THERAPEUT 58514 SHIRA SILVA IC PX 1/> 2 [facility] AREAS INC INC EACH 15 MIN EXERCISES APPL 15260 SHIRA SILVA MODALITY 2 [facility] 1/> AREAS INC INC ULTRASOUN D EA 15 MIN MANUAL 78316 SHIRA SILVA THERAPY 2 [facility] TQS 1/> INC INC REGIONS EACH 15 MINUTES INJ AHF/ J7186 BIORX BIORX VWF CMPLX 2 PER FACTOR VIII IU PROTHROMB 22473 [facility] UNIVERS IN TIME 2 Y Y HOSPITAL HOSPITAL THER 49558 UNIVERS UNIVERS PROPH/DX 2 Y Y NJX IV HOSPITAL HOSPITAL PUSH SINGLE/1S T SBST/DRUG BLOOD 04009 [facility] COUNT 2 Y Y COMPLETE [facility] AUTO&AUTO DIFRNTL WBC THERAPEUT 73485 [facility] IC 2 Y Y INJECTION [facility] IV PUSH EACH NEW DRUG INJECTION J2270 [facility] MORPHINE 2 Y [facility] UP TO 10 MG THROMBOPL 53122 [facility] ASTIN 2 Y Y TIME HOSPITAL HOSPITAL PARTIAL PLASMA/WH OLE BLOOD SEDIMENTA 94519 [facility] TION RATE 2 Y Y RBC [facility] AUTOMATED RADEX 19036 MATEO MERHAR ELBOW 2 MEDICAL GAR COMPLETE SERV MINIMUM 3 FOUNDATIO VIEWS N C-REACTIV 56653 [facility] E PROTEIN 2 Y Y HOSPITAL HOSPITAL COLLECTIO 93138 [facility] N VENOUS 2 Y Y BLOOD [facility] VENIPUNCT URE INJECTION J2405 [facility] 2 Y Y [facility] ON HCL PER 1 MG MANUAL 81463 SHIRA SILVA THERAPY 2 [facility]P TQS 1/> INC INC REGIONS EACH 15 MINUTES APPLICATI 74289 SHIRA SILVA ON 2 [facility] HOSP MODALITY INC INC 1/> AREAS HOT/COLD PACKS PHYSICAL 63042 SHIRA SILVA THERAPY 2 [facility] HOSP EVALUATIO INC INC N PROTHROMB 45641 [facility] IN TIME 2 Y Y HOSPITAL HOSPITAL INJECTION J1170 [facility] 2 Y Y HYDROMORP [facility] KADY UP TO 4 MG RINGERS J7120 [facility] LACTATE 2 Y Y INFUSION [facility] UP TO 1000 CC ARTHRT 40931 CAM LEVY ELBOW 2 SRI SRI CAPSULAR EXCISION CAPSULAR RLS SPX THROMBOPL 25114 [facility] ASTIN 2 Y Y TIME HOSPITAL HOSPITAL PARTIAL PLASMA/WH OLE BLOOD UNCLASSIF J3490 [facility] IED DRUGS 2 Y Y HOSPITAL HOSPITAL INJECTION J3010 [facility] FENTANYL 2 Y Y CITRATE [facility] 0.1 MG INJECTION J2710 [facility] 2 Y Y NEOSTIGMI [facility] NE METHYLSUL FATE UP TO 0.5 MG ANESTHESI 49908 [facility] REILLY A ELBOW 2 LTH [place] JOINT ANESTHESI DIAGNOSTI A PSC C ARTHROSCO PIC BLOOD 53989 [facility] COUNT 2 Y Y COMPLETE [facility] AUTOMATED INJECTION J2270 [facility] MORPHINE 2 Y Y SULFATE [facility] UP TO 10 MG INJECTION J2250 [facility] 2 Y Y MIDAZOLAM [facility] HCL PER 1 MG ARTHROSCO 72915 CAM BROOKEKIARRA PY ELBOW 2 SRI SRI SURGICAL SYNOVECTO MY COMPLETE INJECTION J2405 [facility] 2 Y Y [facility] PER 1 MG PARTIAL 38586 CAM LEVY EXCISION 2 SRI SRI BONE OLECRANON PROCESS ARTHROSCO 01267 MENDYLEONORMOI BROOKEKIARRA PY ELBOW 2 SRI SRI [place] [address] [facility] CARLOS SURG 2 Y OF [facility] PATHOLOGY [facility] GROSS&SONU ROSCOPIC EXAM INJ AHF/ J7186 BIORX BIORX VWF CMPLX 2 PER FACTOR VIII IU INJ F/ J7186 BIORX BIORX VWF CMPLX 2 PER FACTOR VIII IU FACTOR J7190 BIORX BIORX VIII 2 ANTIHEMOP HILIC FACTOR HUMAN PER IU RADEX 42656 [place] CHEPE ELBOW 2 MEDICAL AMBROSIO COMPLETE SERV MINIMUM 3 FOUNDATIO VIEWS N INJ F/ J7186 BIORX BIORX VWF CMPLX 2 PER FACTOR VIII IU FACTOR J7190 BIORX BIORX VIII 2 ANTIHEMOP HILIC FACTOR HUMAN PER IU BLOOD 49226 [facility] COUNT 2 [place] COMPLETE AUTO&AUTO DIFRNTL WBC INJ F/ J7186 BIORX BIORX VWF CMPLX 2 PER FACTOR VIII IU BLOOD 73808 LISA Gordon COUNT 2 COMPLETE AUTO&AUTO DIFRNTL WBC RADIOLOGI 32717 SHIRA SILVA C EXAM 2 [facility] CHEST 2 INC INC VIEWS FRONTAL&L ATERAL PROTHROMB 07460 LISA Gordon IN TIME 2 TRANSFERA 45171 LISA CAMARILLO ANT SE 2 ASPARTATE AMINO AST SGOT TRANSFERA 19752 LISA Gordon SE 2 ALANINE AMINO ALT [...] ANTIHEMOP HILIC FACTOR HUMAN PER IU BLOOD 98479 [facility]ARE COUNT 2 [place] COMPLETE AUTO&AUTO DIFRNTL WBC CULTURE 84987 COMBINED COMBINED BACTERIAL 2 PHYSICIAN PHYSICIAN S LA S LA QUANTTATI VE COLONY COUNT URINE URNLS DIP 20224 CHAZ OSORIOOND 2 [place] STICK/TAB LET RGNT NON-AUTO W/O MICRSCP COMPREHEN 24890 SHIRA SILVA SIVE 2 [facility] METABOLIC INC INC PANEL THROMBOPL 96735 SHIRA SILVA ASTIN 2 [facility] TIME INC INC PARTIAL PLASMA/WH OLE BLOOD PROTHROMB 83862 SHIRA RINALDI, IN TIME 2 MEM [facility] JR THO INC URNLS DIP 72266 SHIRA SILVA 2 [facility] STICK/TAB INC INC LET REAGENT AUTO MICROSCOP Y BLOOD 57505 SHIRA SILVA COUNT 2 [facility] COMPLETE INC INC AUTO&AUTO DIFRNTL WBC LOCM Q9967 SHIRA SILVA 300-399 2 [facility] MG/ML INC [place] [address] SYL SYL ABDOMEN & 2 MARA MARA PELVIS W/CONTRAS T MATERIAL FACTOR J7190 BIORX BIORX VIII 2 ANTIHEMOP HILIC FACTOR HUMAN PER IU BLOOD 18163 FAMILY FAMILY COUNT 2 CARE CARE COMPLETE ASSOCIATE ASSOCIATE AUTO&AUTO S S DIFRNTL WBC FACTOR J7190 BIORX BIORX VIII 1 ANTIHEMOP HILIC FACTOR HUMAN PER IU ORTHOTIC 82174 SHIRA SILVA MGMT&DAREN 1 [facility] [place] UXTR INC INC LXTR&/TRN K EA 15 ANK FT L1906 ADVANCED ADVANCED ORTHOS 1 TECHNOLOG TECHNOLOG MX-LIG IES INC IES INC ANK SUPT PREFB OFF SHELF BLOOD 02544 FAMILY FAMILY COUNT 1 CARE CARE COMPLETE ASSOCIATE ASSOCIATE AUTO&AUTO S S DIFRNTL WBC IAADIADOO 71568 FAMILY MULBERRY 1 CARE NEW STREPTOCO ASSOCIATE CCUS S GROUP A BLOOD 09865 FAMILY FAMILY COUNT 1 CARE CARE COMPLETE ASSOCIATE ASSOCIATE AUTO&AUTO S S DIFRNTL WBC BLOOD 12253 SHIRA SILVA OCCULT 1 [facility] PEROXIDAS INC INC E ACTV QUAL FECES 1-3 SPEC BLOOD 53295 FAMILY FAMILY COUNT 1 CARE CARE COMPLETE ASSOCIATE ASSOCIATE AUTO&AUTO S S DIFRNTL WBC IAADIADOO 46782 FAMILY ZEESHANBERRY 1 CARE NEW STREPTOC[place] [address] SHIRA SILVA CLOSTRIDI 1 [facility] [place] [address] SHIRA SILVA ROTAVIRUS 1 [facility] INC INC IAADIADOO 00806 FAMILY YAJAIRA 1 CARE R H STREPTOCO ASSOCIATE CCUS S GROUP A IAADIADOO 69586 FAMILY LISA Gordon 1 CARE STREPTOCO ASSOCIATE CCUS S GROUP A RADIOLOGI 68331 [facility] C EXAM 0 MEDICAL MARA CHEST 2 IMAGING VIEWS ASS FRONTAL&L ATERAL IAADIADOO 85269 FAMILY MULBERRY 0 CARE NEW STREPTOCO ASSOCIATE CCUS S GROUP A BLOOD 27774 FAMILY MULBERRY COUNT 0 CARE NEW COMPLETE ASSOCIATE AUTO&AUTO S DIFRNTL WBC ARTHROSCO 29641 [place] MICHOACANO PY ANKLE 0 MEDICAL ALLEN SURGICAL SERV DEBRIDEME FOUNDATIO NT LIMITED ANESTHESI 90254 [place] YADIRA A 0 MEDICAL JOSH ARTHROSCO SERVICES PIC PROCEDURE ANKLE & FOOT OTH LOCAL 8087 UNIVERS UNIVERS 0 Y Y EXCISION/ HOSPITAL HOSPITAL DESTRUCTI ON LESION ANK JOINT IAADIADOO 40067 FAMILY LISA J 0 CARE STREPTOCO ASSOCIATE CCUS S GROUP A BLOOD 00940 FAMILY FAMILY COUNT 0 CARE CARE COMPLETE ASSOCIATE ASSOCIATE AUTO&AUTO S S DIFRNTL WBC RADEX 31571 [facility] ANKLE 0 Y Y [facility] MINIMUM 3 VIEWS 25 56745 LAB SHANI LAB SHANI HYDROXY 0 AMERIC AMERIC INCLUDES HOLDING HOLDING FRACTIONS IF PERFORMED THERAPEUT 27364 [facility] IC PX 1/> 0 Y Y [facility] EACH [address] EX[address] 65[address] [facility] 9 Y Y [facility] THERAPEUT 07576 SHIRA SILVA IC PX 1/> 9 [facility] AREAS INC INC EACH 15 MIN EXERCISES APPL 92446 SHIRA SILVA MODALITY 9 [facility] 1/> AREAS INC INC ULTRASOUN D EA 15 MIN APPLICATI 13977 SHIRA SILVA ON 9 [facility] MODALITY INC INC 1/> AREAS HOT/COLD PACKS APPL 83060 SHIRA SILVA MODALITY 9 [facility] 1/> AREAS INC INC ELEC STIMJ UNATTENDE D RADEX 81430 [facility] SYL, ELBOW 9 MEDICAL ROLANDO COMPLETE IMAGING MINIMUM 3 ASSOCIATE VIEWS S APPL 07967 SHIRA SILVA MODALITY 9 [facility] 1/> AREAS INC INC ELEC STIMJ UNATTENDE D APPL 85909 SHIRA SILVA MODALITY 9 [facility] 1/> AREAS INC INC ULTRASOUN D EA 15 MIN APPLICATI 09551 SHIRA SILVA ON 9 [facility] MODALITY INC INC 1/> AREAS HOT/COLD PACKS THERAPEUT 22353 SHIRA SILVA IC PX 1/> 9 [facility] AREAS INC INC EACH 15 MIN EXERCISES THERAPEUT 71599 SHIRA SILVA IC PX 1/> 9 [facility] AREAS INC INC EACH 15 MIN EXERCISES APPL 30176 SHIRA SILVA MODALITY 9 [facility] 1/> AREAS INC INC ULTRASOUN D EA 15 MIN APPLICATI 24861 SHIRA SILVA ON 9 [facility] MODALITY INC INC 1/> AREAS HOT/COLD PACKS APPL 42762 SHIRA SILVA MODALITY 9 [facility] 1/> AREAS INC INC ELEC STIMJ UNATTENDE D APPL 90604 SHIRA SILVA MODALITY 9 [facility] 1/> AREAS INC INC ELEC STIMJ UNATTENDE D APPL 22013 SHRIA SILVA MODALITY 9 [facility] 1/> AREAS INC INC IONTOPHOR ESIS EA 15 MIN PHYSICAL 99879 SHIRA SILVA THERAPY 9 [facility] EVALUATIO INC INC N APPLICATI 18546 SHIRA SILVA ON 9 [facility] MODALITY INC INC 1/> AREAS HOT/COLD PACKS BLOOD 21288 FAMILY MULBERRY, COUNT 9 CARE ALEKSANDR T COMPLETE ASSOCIATE AUTO&AUTO S DIFRNTL WBC APPL 77583 SHIRA SILVA MODALITY 9 [facility] 1/> AREAS INC INC ULTRASOUN D EA 15 MIN BLOOD 64022 FAMILY YAJAIRA, COUNT 9 CARE R NII COMPLETE ASSOCIATE AUTO&AUTO S DIFRNTL WBC INITIAL 46609 [facility] OBSERVATI 9 Y Y ON HOSPITAL HOSPITAL CARE/DAY [address]ES [address] [facility] 9 Y HANS [facility] RECOMBINA NT [address] [facility] IED DRUGS 9 Y HANS HOSPITAL INJECTION J3010 [facility] FENTANYL 9 Y Y CITRATE [facility] 0.1 MG ARTHROSCO 45576 [facility] PY ELBOW 9 Y Y SURGICAL [facility] SYNOVECTO MY COMPLETE UNLISTED 47086 [facility] PROCEDURE 9 Y Y HOSPITAL HOSPITAL ARTHROSCO PY INJECTION J2270 [facility] MORPHINE 9 Y Y SULFATE [facility] UP TO 10 MG INJECTION J2795 [facility] 9 Y [facility] HYDROCHLO RIDE 1 MG INJECTION J2175 [facility] 9 Y Y MEPERIDIN [facility] E HCL PER 100 MG ANESTHESI 63589 Reid ZIEGLER 9 MEDICAL JULIETTE Desai OPEN/SURG SERVICES ARTHRS RADICAL PROC ELBOW EXCISION 20780 MATEO CAM RADIAL 9 [facility] HEAD SERV FOUNDATIO RAD RESCJ 51990 MATEO LEVY CAPSL 9 [facility] TISS&HTRT SERV PC [place] [address] [facility] SURG 9 Y Y PATHOLOGY [facility] GROSS&SONU ROSCOPIC EXAM DECALCIFI 41872 [facility] CATION 9 Y Y PROCEDURE [facility]OSPITAL HOSPITAL INJECTION J2405 [facility] 9 [facility] H[facility] PER 1 MG FACTOR 42045 [facility] INHIBITOR 9 Y Y TEST [facility] INSJ PRPH 85069 [facility] CVC W/O 9 Y Y SUBQ [facility] PORT/STAMP CLASSIFIER AGE 6 YR/> BLOOD 04277 [facility] COUNT 9 Y Y [facility] AUTO&AUTO DIFRNTL WBC RADIOLOGI 44291 [facility] Giselle MELGOZA EXAM 9 Y OF CHICAN CHEST 2 [facility] FRONTAL&L ATERAL RADEX 54728 [facility] ELBOW 2 9 Y [facility] BLOOD 54917 FAMILY LISA, J COUNT 9 CARE G COMPLETE ASSOCIATE AUTO&AUTO S DIFRNTL WBC APPL 97851 SHIRA HEARDON MODALITY 9 [facility] 1/> AREAS INC INC ULTRASOUN D EA 15 MIN THERAPEUT 95172 SHIRA SILVA IC PX > 9 [facility] AREAS INC INC EACH 15 MIN EXERCISES APPL 56858 SHIRA SHIAR MODALITY 9 [facility] 1/> AREAS INC INC IONTOPHOR ESIS EA 15 MIN PHYSICAL 80745 SHIRA HEARDON THERAPY 9 [facility] EVALUATIO INC INC N MANUAL 36130 SHIRA HEARDON THERAPY 9 [facility]OS[facility] TQS 1/> INC INC REGIONS EACH 15 MINUTES APPL 78509 SHIRA HEARDON MODALITY 9 [facility] 1/> AREAS INC INC ULTRASOUN D EA 15 MIN THERAPEUT 84532 SHIRA HEARDON IC PX 1/> 9 [facility] AREAS INC INC EACH 15 MIN EXERCISES APPL 97278 SHIRA SILVA MODALITY 9 [facility]OS[facility] 1/> AREAS INC INC IONTOPHOR ESIS EA 15 MIN RADIOLOGI 35273 MATEO TOVAR C 9 MEDICAL SERENITY N EXAMINATI SERV ON KNEE 3 FOUNDATIO VIEWS RADIOLOGI 46360 MATEO LA C 9 MEDICAL SERENITY N EXAMINATI SERV ON KNEE FOUNDATIO 1/2 VIEWS MRI ANY 61272 ROLANDO C SYL, JT LOWER 9 SYL ROLANDO EXTREM W/O CONTRAST MATRL BLOOD 80734 FAMILY MULBERRY, COUNT 9 CARE ALEKSANDR T COMPLETE ASSOCIATE AUTO&AUTO S DIFRNTL WBC COLLECTIO 09273 FAMILY MULBERRY, N 9 CARE ALEKSANDR T CAPILLARY ASSOCIATE BLOOD S SPECIMEN RADIOLOGI 76991 SHIRA SHIRA C 9 [facility] EXAMINATI INC INC ON KNEE 3 VIEWS BLOOD 85575 FAMILY MULBERRY, COUNT 9 CARE ALEKSANDR T COMPLETE ASSOCIATE AUTO&AUTO S DIFRNTL WBC COLLECTIO 08166 FAMILY MULBERRY, N 9 CARE ALEKSANDR T CAPILLARY ASSOCIATE BLOOD S SPECIMEN RADEX 80111 UN[facility]ERS[facility] DIPTI, ELBOW 2 9 Y OF [facility] APPLICATI 34645 SHIRA SILVA ON 9 [facility] MODALITY INC INC 1/> AREAS HOT/COLD PACKS THERAPEUT 71076 SHIRA SILVA IC PX 1/> 9 [facility] AREAS INC INC EACH 15 MIN EXERCISES APPL 38474 SHIRA SILVA MODALITY 9 [facility] 1/> AREAS INC INC ELEC STIMJ UNATTENDE D APPL 31850 SHIRA SILVA MODALITY 9 [facility] 1/> AREAS INC INC ELEC STIMJ UNATTENDE D THERAPEUT 60143 SHIRA SILVA IC PX 1/> 9 [facility] AREAS INC INC EACH 15 MIN EXERCISES APPLICATI 43333 SHIRA SILVA ON 9 [facility] MODALITY INC INC 1/> AREAS HOT/COLD PACKS URNLS DIP 71753 FAMILY YAJAIRA, 9 CARE R NII STICK/TAB ASSOCIATE LET RGNT S NON-AUTO W/O MICRSCP CULTURE 18419 COMBINED COMBINED BACTERIAL 9 PHYSICIAN PHYSICIAN S LAB S LAB QUANTTATI VE COLONY COUNT URINE URNLS DIP 45265 FAMILY YAJAIRA, 9 CARE R NII STICK/TAB ASSOCIATE LET RGNT S NON-AUTO W/O MICRSCP APPL 87357 SHIRA SILVA MODALITY 9 [facility] 1/> AREAS INC INC ELEC STIMJ UNATTENDE D APPLICATI 46651 SHIRA SILVA ON 9 [facility] MODALITY INC INC 1/> AREAS HOT/COLD PACKS THERAPEUT 40010 SHIRA SILVA IC PX 1/> 9 [facility] AREAS INC INC EACH 15 MIN EXERCISES THERAPEUT 48814 SHIRA SILVA IC PX 1/> 9 [facility] AREAS INC INC EACH 15 MIN EXERCISES MANUAL 22721 SHIRA SILVA THERAPY 9 [facility] TQS 1/> INC INC REGIONS EACH 15 MINUTES MANUAL 68849 SHIRA SILVA THERAPY 9 [facility] TQS 1/> INC INC REGIONS EACH 15 MINUTES THERAPEUT 50175 SHIRA SILVA IC PX /> 9 [facility] AREAS INC INC EACH 15 MIN EXERCISES APPLICATI 09863 SHIRA SILVA ON 9 [facility] MODALITY INC INC 1/> AREAS HOT/COLD PACKS APPL 21239 SHIRA SILVA MODALITY 9 [facility] 1/> AREAS INC INC ELEC STIMJ UNATTENDE D THERAPEUT 96740 SHIRA SILVA IC PX /> 9 [facility] AREAS INC INC EACH 15 MIN EXERCISES MANUAL 27400 SHIRA SILVA THERAPY 9 [facility] TQS 1/> INC INC REGIONS EACH 15 MINUTES PHYSICAL 72074 SHIRA SILVA THERAPY 9 [facility] EVALUATIO INC INC N THERAPEUT 62965 SHIRA HEARDON IC PX 1/> 9 [facility] AREAS INC INC EACH 15 MIN EXERCISES ANKLE L1930 PROSTHETI PROSTHETI FOOT 8 C&ORTHOTI C&ORTHOTI ORTHOTIC C C PLASTIC/O ASSOCIATE ASSOCIATE MATStef S,LLC S,LLC PREFAB RADEX 30845 [facility] ANKLE 8 Y Y COMPLETE [facility] MINIMUM 3 VIEWS H[facility] [address] [facility], DISCHARGE 8 MEDICAL ANDRES DAY SERV MANAGEMEN FOUNDATIO T 30 MIN/< [place] [address] [facility] MCCORMICKS, ABDOMEN 8 MEDICAL MIKEY W/CONTRAS SERV T FOUNDATIO MATERIAL SBSQ 81349 [facility] [place] 8 [facility] CARE/DAY SERV 25 FOUNDATIO MINUTES INITIAL [address] [place] O[place] INPATIENT 8 MEDICAL , JANAE CONSULT SERV R NEW/ESTAB FOUNDATIO PT [address] PELVIS 22512 [facility], 8 MEDICAL MIKEY W/CONTRAS SERV T FOUNDATIO MATERIAL INITIAL 64975 [facility] [place] 8 [facility] CARE/DAY SERV 70 FOUNDATIO MINUTES INFUSION 0011 [facility] 8 Y Y [facility] [place] [address] SHIRA SHIRA ABDOMEN 8 [facility] W/CONTRAS INC INC T MATERIAL 3D 63741 SHIRA SILVA RENDERING 8 [facility] INC INC W/INTERP& POSTPROC DIFF WORK STATION BLOOD 68356 FAMILY GATES, COUNT 8 CARE R NII COMPLETE ASSOCIATE AUTO&AUTO S DIFRNTL WBC CT PELVIS 03823 [facility] SILVA 8 [facility] W/CONTRAS INC INC T MATERIAL BLOOD 32611 FAMILY OCONNOR, COUNT 8 CARE ALEKSANDR T COMPLETE ASSOCIATE AUTO&AUTO S DIFRNTL WBC THROMBOPL 80090 COMBINED COMBINED ASTIN 8 PHYSICIAN PHYSICIAN TIME S LAB S LAB PARTIAL PLASMA/WH OLE BLOOD BLOOD 62244 Heidi REDD COUNT 8 CARE G COMPLETE ASSOCIATE AUTO&AUTO S DIFRNTL WBC PROTHROMB 28657 Heidi REDD IN TIME 8 CARE G ASSOCIATE S Encounters Encounter Start End Date Code Location Performer Type Date OFFICE 83197 FAMILY MULBERRY OUTPATIEN 7 7 CARE T VISIT ASSOCIATE 25 S MINUTES OFFICE 59758 FAMILY ALYSSA OUTPATIEN 7 7 CARE T VISIT ASSOCIATE 15 S MINUTES OFFICE 60232 FAMILY WARE OUTPATIEN 7 7 CARE T VISIT ASSOCIATE 15 S MINUTES EMERGENCY 29410 YAYA PAZ DEPT 7 7 PHYSICIAN U VISIT S, PLLC HIGH SEVERITY& THREAT FUNCJ EMERGENCY 95890 SHIRA 7 7 [facility] DEPARTMEN INC T VISIT HIGH/URGE NT SEVERITY HOSPITAL SH[facility] - 7 7 [facility] OUTPATIEN INC T OFFICE 58835 FAMILY YAJAIRA OUTPATIEN 7 7 CARE T VISIT ASSOCIATE 15 S MINUTES OFFICE 16719 FAMILY WARE OUTPATIEN 7 7 CARE T VISIT ASSOCIATE 15 S MINUTES OFFICE 91167 FAMILY YAJAIRA OUTPATIEN 7 7 CARE T VISIT ASSOCIATE 15 S MINUTES OFFICE 56007 FAMILY MULBERRY OUTPATIEN 6 6 CARE T VISIT ASSOCIATE 15 S MINUTES OFFICE 96243 FAMILY YAJAIRA OUTPATIEN 6 6 CARE T VISIT ASSOCIATE 15 S MINUTES EMERGENCY 48921 6 6 [facility] DEPARTMEN E T VISIT HOSPITALS HIGH/URGE NT SEVERITY EMERGENCY 88040 [facility] 6 6 MEDICAL DEPARTMEN SERV T VISIT FOUNDATIO LOW/MODER N SEVERITY HOSPITAL [facility] - 6 6 [facility] OUTPATIEN E T HOSPITALS OFFICE 92728 [facility] HARP OUTPATIEN 6 6 PHYSICIAN WENDY T NEW 10 S GROUP MINUTES OFFICE 36946 FAMILY ISAMAR OUTPATIEN 6 6 CARE T VISIT ASSOCIATE 15 S MINUTES OFFICE 44850 FAMILY ISAMAR OUTPATIEN 6 6 CARE TAR T VISIT ASSOCIATE 15 S MINUTES OFFICE 10423 FAMILY ISAMAR OUTPATIEN 6 6 CARE TAR T VISIT ASSOCIATE 15 S MINUTES OFFICE 10133 FAMILY CROWDY OUTPATIEN 6 6 CARE CRI T VISIT ASSOCIATE 15 S MINUTES OFFICE 27955 FAMILY MULBERRY OUTPATIEN 6 6 CARE NEW T VISIT ASSOCIATE 15 S MINUTES OFFICE 03859 FAMILY ISAMAR OUTPATIEN 6 6 CARE TAR T VISIT ASSOCIATE 15 S MINUTES OFFICE 39235 FAMILY LISA OUTPATIEN 6 6 CARE PAUL T VISIT ASSOCIATE 15 S MINUTES OFFICE 27409 FAMILY ISAMAR OUTPATIEN 6 6 CARE TAR T VISIT ASSOCIATE 15 S MINUTES OFFICE 66549 FAMILY LISA OUTPATIEN 6 6 CARE PAUL T VISIT ASSOCIATE 15 S MINUTES OFFICE 17281 FAMILY LISA OUTPATIEN 6 6 CARE PAUL T VISIT ASSOCIATE 15 S MINUTES EMERGENCY 17704 [place] [facility] 6 6 [facility] SERV T VISIT FOUNDATIO MODERATE N SEVERITY [facility]OSPITAL UN[facility]ERSIT - 6 6 [facility] T OFFICE 64209 FAMILY YAJAIRA OUTPATIEN 6 6 CARE R H T VISIT ASSOCIATE 15 S MINUTES EMERGENCY 88616 YAYA PAZ 6 6 PHYSICIAN U [facility] MODERATE SEVERITY OFFICE 41965 FAMILY ISAMAR OUTPATIEN 6 6 CARE TAR T VISIT ASSOCIATE 15 S MINUTES OFFICE 09944 FAMILY LISA OUTPATIEN 6 6 CARE PAUL T VISIT ASSOCIATE 10 S MINUTES HOSPITAL SHIRA - 6 6 [facility]IEN [facility] SHIRA - 6 6 [facility] SHIRA - 6 6 [facility] OUTPATIEN [facility] SHIRA - 6 6 [facility] OUTPATIEN INC T OFFICE 34095 FAMILY LISA OUTPATIEN 6 6 CARE PAUL T VISIT ASSOCIATE 15 S MINUTES [facility] - 6 6 [facility]EN [facility] SHIRA - 6 6 [facility] SHIRA - 6 6 [facility]PITAL SHIRA - 6 6 [facility] OUTPATIEN [facility] OFFICE 52600 FAMILY LISA OUTPATIEN 6 6 CARE PAUL T VISIT ASSOCIATE 15 S MINUTES HOSPITAL SHIRA - 6 6 [facility]EN [facility] EMERGENCY 00252 SHIRA 6 6 [facility] T VISIT MODERATE SEVERITY EMERGENCY 42711 YAYA PAZ 6 6 PHYSICIAN Julita BROWNING [facility], [facility] T VISIT HIGH/URGE NT SEVERITY HOSPITAL SHIRA - 6 6 [facility]EN [facility] OFFICE 92684 FAMILY LISA OUTPATIEN 6 6 CARE PAUL T VISIT ASSOCIATE 15 S MINUTES EMERGENCY 15003 YAYA MARTINEZ 6 6 PHYSICIAN JR HANSEN [facility], [facility] T VISIT HIGH/URGE NT SEVERITY OFFICE 30871 FAMILY YAJAIRA OUTPATIEN 6 6 CARE R H T VISIT ASSOCIATE 15 S MINUTES OFFICE 58781 FAMILY CROWDY OUTPATIEN 6 6 CARE CRI T VISIT ASSOCIATE 15 S MINUTES OFFICE 19992 FAMILY CROWDY OUTPATIEN 6 6 CARE CRI T VISIT ASSOCIATE 15 S MINUTES OFFICE 19887 FAMILY YAJAIRA OUTPATIEN 6 6 CARE R H T VISIT ASSOCIATE 15 S MINUTES OFFICE 43650 FAMILY CROWDY OUTPATIEN 6 6 CARE CRI T VISIT ASSOCIATE 15 S MINUTES OFFICE 34783 FAMILY LISA OUTPATIEN 5 5 CARE PAUL T VISIT ASSOCIATE 15 S MINUTES OFFICE 66041 FAMILY CROWDY OUTPATIEN 5 5 CARE CRI T VISIT ASSOCIATE 15 S MINUTES OFFICE 41382 FAMILY YAJAIRA OUTPATIEN 5 5 CARE R H T VISIT ASSOCIATE 15 S MINUTES OFFICE 38539 FAMILY CROWDY OUTPATIEN 5 5 CARE CRI T VISIT ASSOCIATE 15 S MINUTES OFFICE 96044 FAMILY CROWDY OUTPATIEN 5 5 CARE CRI T VISIT ASSOCIATE 15 S MINUTES OFFICE 60392 [facility] PETTEY OUTPATIEN 5 5 PHYSICIAN JAM T VISIT S GROUP 15 MINUTES OFFICE 43182 [facility] PETTEY OUTPATIEN 5 5 PHYSICIAN JAM T NEW 20 S GROUP MINUTES HOSPITAL SHIRA - 5 5 [facility] OUTPATIEN INC T EMERGENCY 65150 YAYA DE LA VEGA 5 5 PHYSICIAN [facility] T VISIT MODERATE SEVERITY OFFICE 50602 FAMILY LISA OUTPATIEN 5 5 CARE PAUL T VISIT ASSOCIATE 25 S MINUTES OFFICE 50188 FAMILY YAJAIRA OUTPATIEN 5 5 CARE R H T VISIT ASSOCIATE 15 S MINUTES OFFICE 43462 [place] MICHOACANO OUTPATIEN 5 5 MEDICAL ALLEN T VISIT SERV 25 FOUNDATIO MINUTES HOSPITAL UNIVERSIT - 5 5 Y OUTPATIEN HOSPITAL T OFFICE 63290 UNIVERSIT OUTPATIEN 5 5 Y T VISIT HOSPITAL 10 MINUTES OFFICE 96145 FAMILY YAJAIRA OUTPATIEN 5 5 CARE R H T VISIT ASSOCIATE 15 S MINUTES OFFICE 54633 FAMILY CROWDY OUTPATIEN 5 5 CARE CRI T VISIT ASSOCIATE 15 S MINUTES OFFICE 62741 FAMILY LISA J OUTPATIEN 5 5 CARE G T VISIT ASSOCIATE 15 S MINUTES EMERGENCY 78306 SHIRA 5 5 [facility] DEPARTMEN INC T VISIT MODERATE SEVERITY HOSPITAL SHIRA - 5 5 [facility] OUTPATIEN INC T EMERGENCY 42947 SHIRA DE LA VEGA 5 5 [facility] T VISIT P LOW/MODER SEVERITY OFFICE 53514 FAMILY MULBERRY OUTPATIEN 4 4 CARE NEW T VISIT ASSOCIATE 15 S MINUTES OFFICE 08906 FAMILY YAJAIRA OUTPATIEN 4 4 CARE R H T VISIT ASSOCIATE 15 S MINUTES OFFICE 19279 FAMILY MULBERRY OUTPATIEN 4 4 CARE NEW T VISIT ASSOCIATE 15 S MINUTES OFFICE 72151 FAMILY OUTPATIEN 4 4 CARE T VISIT ASSOCIATE 15 S MINUTES OFFICE 61902 FAMILY YAJAIRA OUTPATIEN 4 4 CARE R H T VISIT ASSOCIATE 15 S MINUTES OFFICE 84657 LISA J OUTPATIEN 4 4 G T VISIT 15 MINUTES OFFICE 29097 MULBERRY MULBERRY OUTPATIEN 4 4 NEW NEW T VISIT 15 MINUTES OFFICE 76719 ABDULAZIZ ESTRADAON OUTPATIEN 4 4 ERIC ERIC T VISIT 15 MINUTES OFFICE 14059 MULBERRY MULBERRY OUTPATIEN 4 4 NEW NEW T VISIT 15 MINUTES OFFICE 63479 LISA GONZALEZ J OUTPATIEN 4 4 G G T VISIT 15 MINUTES HOSPITAL SHIRA - 4 4 [facility] OUTPATIEN INC T OFFICE 43269 FAMILY OUTPATIEN 3 3 CARE T VISIT ASSOCIATE 15 S MINUTES OFFICE 25054 MULBERRY MULBERRY OUTPATIEN 3 3 NEW NEW T VISIT 15 MINUTES OFFICE 41254 FAMILY LISA OUTPATIEN 3 3 CARE PAUL T VISIT ASSOCIATE 15 S MINUTES OFFICE 11433 [place] ROMOND OUTPATIEN 3 3 MEDICAL EDW T VISIT SERV 25 FOUNDATIO MINUTES N OFFICE 54652 YAJAIRA YAJAIRA OUTPATIEN 3 3 R H R H T VISIT 15 MINUTES OFFICE 12719 ABDULAZIZ CINTRON OUTPATIEN 3 3 ERIC ERIC T VISIT 15 MINUTES HOSPITAL UNIVERSIT - 3 3 Y [facility] T OFFICE 88370 KMSF ABDULAZIZ OUTPATIEN 3 3 NURSE ERIC T VISIT PRACTITIO 15 NER GR MINUTES OFFICE 01689 LISA Gordon OUTPATIEN 3 3 G G T VISIT 10 MINUTES OFFICE 86266 LISA Gordon OUTPATIEN 3 3 G G T VISIT 15 MINUTES HOSPITAL SHIRA - 3 3 [facility] OUTPATIEN [facility] HOSPITAL SHIRA - 3 3 [facility] OUTPATIEN [facility] T OFFICE 89583 ABDULAZIZ CINTRON OUTPATIEN 3 3 ERIC ERIC T VISIT 15 MINUTES OFFICE 39958 MULBERRY MULBERRY OUTPATIEN 3 3 NEW NEW T VISIT 15 MINUTES OFFICE 85968 SHIRA SILVA OUTPATIEN 2 [facility] 10 [facility]UTES [facility]OSPITAL [facility]ERSIT - 2 2 [facility] - 2 2 [facility]EN [facility] EMERGENCY 06336 MATEO [place] 2 2 MEDICAL NEW DEPARTMEN SERV T VISIT FOUNDATIO MODERATE SEVERITY HOSPITAL UNIVERSIT - [address] [facility] EMERGENCY 92684 UNIVERSIT DEPT 2 2 Y VISIT HOSPITAL HIGH SEVERITY& THREAT [facility] SHIRA - 2 2 [facility] OUTPATIEN [facility] T OFFICE 04700 ABDULAZIZ CINTRON OUTPATIEN 2 2 ERIC ERIC T VISIT 15 MINUTES OFFICE 31883 BRENDA BRENDA CONSULTAT 2 2 LUCIAN LUCIAN ION NEW/ESTAB PATIENT 40 MIN HOSPITAL UNIVERSIT - 2 2 Y [facility] T HOSPITAL UNIVERSIT - 2 2 Y [facility] T OFFICE 95793 CAM LEVY OUTPATIEN 2 2 SRI SRI T VISIT 25 MINUTES OFFICE 36534 FAMILY OUTPATIEN 2 2 CARE T VISIT ASSOCIATE 15 S MINUTES OFFICE 10953 ABDULAZIZ CINTRON OUTPATIEN 2 2 ERIC EIRC T VISIT 15 MINUTES OFFICE 39334 WARE WARE OUTPATIEN 2 2 KATIUSKA KATIUSKA T VISIT 15 MINUTES OFFICE 32936 LISA Gordon OUTPATIEN 2 2 T VISIT 15 MINUTES OFFICE 62719 ILSA Gordon OUTPATIEN 2 2 T VISIT 15 MINUTES HOSPITAL SHIRA - 2 2 [facility] OUTPATIEN INC T OFFICE 54225 WARE WARE OUTPATIEN 2 2 KATIUSKA KATIUSKA T VISIT 15 MINUTES EMERGENCY 83523 SHIRA 2 2 [facility] DEPARTMEN INC T VISIT MODERATE SEVERITY HOSPITAL SHIRA - 2 2 [facility] OUTPATIEN INC T OFFICE 29692 FAMILY WARE OUTPATIEN 2 2 CARE KATIUSKA T VISIT ASSOCIATE 15 S MINUTES HOSPITAL SHIRA - 1 1 [facility] OUTPATIEN INC T OFFICE 41951 ABDULAZIZ CINTRON OUTPATIEN 1 1 ERIC ERIC T VISIT 15 MINUTES OFFICE 31892 MARINE HUMPHREYNAIF OUTPATIEN 1 1 YESI YESI T NEW 30 MINUTES OFFICE 59606 FAMILY MULBERRY OUTPATIEN 1 1 CARE NEW T VISIT ASSOCIATE 15 S MINUTES OFFICE 10470 FAMILY MULBERRY OUTPATIEN 1 1 CARE NEW T VISIT ASSOCIATE 15 S MINUTES HOSPITAL SHIRA - 1 1 [facility] OUTPATIEN INC T OFFICE 73629 FAMILY MULBERRY OUTPATIEN 1 1 CARE NEW T VISIT ASSOCIATE 15 S MINUTES OFFICE 11961 FAMILY YAJAIRA OUTPATIEN 1 1 CARE R H T VISIT ASSOCIATE 15 S MINUTES OFFICE 61687 FAMILY YAJAIRA OUTPATIEN 1 1 CARE R H T VISIT ASSOCIATE 15 S MINUTES OFFICE 67829 FAMILY LISA J OUTPATIEN 1 1 CARE T VISIT ASSOCIATE 15 S MINUTES OFFICE 47148 ABEBESMauricio CINTRON OUTPATIEN 1 1 NURSE ERIC T VISIT PRACTITIO 15 NER GR MINUTES OFFICE 54154 FAMILY MULBERRY OUTPATIEN 1 1 CARE NEW T VISIT ASSOCIATE 25 S MINUTES OFFICE 46062 MATEO RÍOS OUTPATIEN 1 1 MEDICAL ALLEN T VISIT SERV 15 FOUNDATIO MINUTES OFFICE 65686 FAMILY LISA J OUTPATIEN 0 0 CARE T VISIT ASSOCIATE 15 S MINUTES HOSPITAL SHIRA - 0 0 [facility] OUTPATIEN INC T OFFICE 67407 FAMILY YAJAIRA OUTPATIEN 0 0 CARE R H T VISIT ASSOCIATE 15 S MINUTES OFFICE 88473 FAMILY MULBERRY OUTPATIEN 0 0 CARE NEW T VISIT ASSOCIATE 15 S MINUTES HOSPITAL UNIVERSIT - 0 0 Y INPATIENT HOSPITAL OFFICE 09701 FAMILY LISA J OUTPATIEN 0 0 CARE T VISIT ASSOCIATE 15 S MINUTES OFFICE 62363 MATEO RÍOS OUTPATIEN 0 0 MEDICAL ALLEN T VISIT SERV 10 FOUNDATIO MINUTES OFFICE 02429 FAMILY MULBERRY OUTPATIEN 0 0 CARE NEW T VISIT ASSOCIATE 15 S MINUTES HOSPITAL UNIVERSIT - 0 0 Y [facility] T OFFICE 59575 JOHN CINTRON, OUTPATIEN 0 0 NURSE JOSÉ Stephens T VISIT PRACTITIO 15 NER GROUP MINUTES OFFICE 41174 FAMILY GONZALEZ, J OUTPATIEN 0 0 CARE G T VISIT ASSOCIATE 15 S MINUTES OFFICE 24473 FAMILY BRENNANEET, OUTPATIEN 0 0 CARE R NII T VISIT ASSOCIATE 15 S MINUTES OFFICE 18633 [facility] ABDULAZIZ, OUTPATIEN 0 0 NURSE JOSÉ Stephens T VISIT PRACTITIO 15 NER GROUP MINUTES OFFICE 98109 FAMILY BRENNANEET, OUTPATIEN 0 0 CARE R NII T VISIT ASSOCIATE 15 S MINUTES OFFICE 39788 FAMILY OCONNOR, OUTPATIEN 0 0 CARE ALEKSANDR T T VISIT ASSOCIATE 15 S MINUTES OFFICE 78445 FAMILY GONZALEZ, J OUTPATIEN 0 0 CARE G T VISIT ASSOCIATE 15 S MINUTES OFFICE 38089 MATEO ANNY, OUTPATIEN 0 0 MEDICAL EDWARD T VISIT SERV 15 FOUNDATIO MINUTES OFFICE 70282 FAMILY CARSONT, OUTPATIEN 0 0 CARE R NII T VISIT ASSOCIATE 15 S MINUTES HOSPITAL UNIVERSIT - 0 0 Y [facility] T OFFICE 08715 FAMILY BRENNANEET, OUTPATIEN 9 9 CARE R NII T VISIT ASSOCIATE 15 S MINUTES HOSPITAL UNIVERSIT - 9 9 Y [facility] SHIRA - 9 9 [facility]PATIEN [facility] - 9 9 [facility] 42775 FAMILY MULBERRY, OUTPATIEN 9 9 CARE ALEKSANDR T T VISIT ASSOCIATE 15 S MINUTES OFFICE 81436 FAMILY GATES OUTPATIEN 9 9 CARE R NII T VISIT ASSOCIATE 15 S MINUTES OFFICE 46786 JOHN CINTRON OUTPATIEN 9 9 NURSE JOSÉ Stephens T VISIT PRACTITIO 10 NER GROUP MINUTES OFFICE 37821 FAMILY OCONNOR OUTPATIEN 9 9 CARE ALEKSANDR T T VISIT ASSOCIATE 15 S MINUTES HOSPITAL SHIRA - 9 9 [facility] OUTPATIEN INC T OFFICE 37645 [facility] T VISIT INC 10 MINUTES HOME [facility], 9 9 HOME [facility] T [facility] UNIVERSIT - 9 9 Y [facility] T HOME [facility], 9 9 HOME [facility] T [facility] UNIVERSIT - [address] [facility] HOSPITAL UNIVERSIT - 9 9 Y [facility] T OFFICE 98396 MATEO CAM OUTPATIEN 9 9 MEDICAL BIMAL T VISIT SERV 15 FOUNDATIO MINUTES OFFICE 47173 Heidi GONZALEZ OUTPATIEN 9 9 CARE G T VISIT ASSOCIATE 15 S MINUTES OFFICE 01531 FAMILY GATES OUTPATIEN 9 9 CARE R NII T VISIT ASSOCIATE 15 S MINUTES OFFICE 34081 MATEO ANNY OUTPATIEN 9 9 MEDICAL EDWARD T VISIT SERV 15 FOUNDATIO MINUTES HOSPITAL SHIRA - 9 9 [facility] OUTPATIEN INC T OFFICE 52127 [place] KACI, CONSULTBELEN 9 9 MEDICAL JULIETTE T ION SERV NEW/ESTAB FOUNDATIO PATIENT 40 MIN OFFICE 54515 FAMILY YAJAIRA, OUTPATIEN 9 9 CARE R NII T VISIT ASSOCIATE 15 S MINUTES OFFICE 33567 FAMILY MULBERRY, OUTPATIEN 9 9 CARE ALEKSANDR T T VISIT ASSOCIATE 15 S MINUTES HOSPITAL SHIRA - 9 9 [facility] INC T OFFICE 51125 FAMILY YAJAIRA, OUTPATIEN 9 9 CARE R NII T VISIT ASSOCIATE 15 S MINUTES OFFICE 42192 FAMILY MULBERRY, OUTPATIEN 9 9 CARE ALEKSANDR T T VISIT ASSOCIATE 15 S MINUTES OFFICE 48677 FAMILY MULBERRY, OUTPATIEN 9 9 CARE ALEKSANDR T T VISIT ASSOCIATE 15 S MINUTES HOSPITAL UNIVERSIT - 9 9 Y [facility] OFFICE 09997 ABEBESMauricio CINTRON, OUTPATIEN 9 9 NURSE JOSÉ Stephens T VISIT PRACTITIO 10 NER GROUP MINUTES HOSPITAL SHIRA - 9 9 [facility] OUTPAT[facility]EN INC T OFFICE 57604 FAMILY YAJAIRA, OUTPATIEN 9 9 CARE R NII T VISIT ASSOCIATE 15 S MINUTES OFFICE 54974 FAMILY YAJAIRA, OUTPATIEN 9 9 CARE R NII T VISIT ASSOCIATE 15 S MINUTES OFFICE 27477 FAMILY YAJAIRA, OUTPATIEN 9 9 CARE R NII T VISIT ASSOCIATE 15 S MINUTES HOSPITAL SHIRA - 9 9 [facility] OUTPATIEN INC T OFFICE 73236 FAMILY YAJAIRA, OUTPATIEN 9 9 CARE R NII T VISIT ASSOCIATE 15 S MINUTES OFFICE 54805 MATEO MCCORMICK, OUTPATIEN 9 9 MEDICAL EDWARD T VISIT SERV 15 FOUNDATIO MINUTES OFFICE 86238 FAMILY YAJAIRA, OUTPATIEN 9 9 CARE R NII T VISIT ASSOCIATE 15 S MINUTES OFFICE 69560 FAMILY YAJAIRA, OUTPATIEN 8 8 CARE R NII T VISIT ASSOCIATE 10 S MINUTES OFFICE 23599 MATEO RÍOS BRIPATIPATRICA 8 8 MEDICAL ELENA J T VISIT SERV 10 FOUNDATIO MINUTES OFFICE 39365 BRI SAEEDPATIEN 8 8 CARE R NII T VISIT ASSOCIATE 15 S MINUTES OFFICE 76500 MATEO CASTROKAYLEEN BRIPATIPATRICA 8 8 MEDICAL EDWARD T VISIT SERV 15 FOUNDATIO MINUTES OFFICE 74898 MATEO RÍOS BRIPATIPATRICA 8 8 MEDICAL ELENA J T VISIT SERV 15 FOUNDATIO MINUTES HOSPITAL UNIVERSIT - 8 8 Y [facility] H[facility]PITAL UNIVERSIT [facility] 8 8 Y INPATIENT HOSPITAL OFFICE 17315 FAMILY GATES BRIPATIEN 8 8 CARE R NII T VISIT ASSOCIATE 15 S MINUTES HOSPITAL MIL[facility] - 8 8 [facility] 65319 BRI SELLERSPATIEN 8 8 CARE ALEKSANDR T T VISIT ASSOCIATE 15 S MINUTES OFFICE 40076 FAMILY OCONNOR BRIPATIPATRICA 8 8 CARE ALEKSANDR T T VISIT ASSOCIATE 15 S MINUTES OFFICE 68493 FAMILY GONZALEZHeidi OUTPATIEN 8 8 CARE G T VISIT ASSOCIATE 15 S MINUTES OFFICE 63649 FAMILY GATES BRIPATIEN 8 8 CARE R NII T VISIT ASSOCIATE 15 S MINUTES OFFICE 73365 MATEO ANNY BRIPATIEN 8 8 MEDICAL EDWARD T VISIT SERV 15 FOUNDATIO MINUTES
--- OUTSIDE RECORDS SUMMARY | 2017-06-22 19:53 | External Medical Summary Rpt | CCD ---
Author Author , LOKI HOUSE Address Unknown Phone [email or web address] Immunization Name Date Rout CVX Reac Dose Comm Prov Is Faci e tion ent ider Refu lity Give sed n Tdap 07- 115 999 Hist H149 No H149 , 4-20 oric Adso 15 al rbed Info rmat ion - Sour ce Unsp ecif ied
--- OUTSIDE RECORDS SUMMARY | 2017-06-22 19:53 | External Medical Summary Rpt ---
Author Author LACY Lovely, LACY [employer] Address Unknown Phone Unavailable Results INR in Blood by Coagulation assay Observa Value Referen Units Interpr Notes Date tion ce etation Range IS PATIENT ON ANTICOAGULANTS? N PTT RESULTS MUST BE CALLED IF PT ON HEPARIN!!! Y INR in 0.9 - 1.1 No Normal INDICATIO Jun 17 Blood by informati N 2017 Coagulati on in 10:10 AM on assay source INR data RANGETHER APY FOR DVT, PE, ATRIAL FIB; 2.0 - 3.0PROPHY LAXIS FOR VTETHERAP Y FOR MECHANICA L HEART 2.5 - 3.5VALVE; PREVENTIO N OF SYSTEMICE MBOLISM SECONDARY TO AMI Prothromb 9.4 - SECONDS Normal No Jun 17 in time 11.8 informati 2017 (PT) in on in 10:10 AM Platelet source poor data plasma by Coagulati on assay Activated partial thrombplastin time (aPTT) in Platelet poor plasma by Coagulation assay Observa Value Referen Units Interpr Notes Date tion ce etation Range IS PATIENT ON ANTICOAGULANTS? N PTT RESULTS MUST BE CALLED IF PT ON HEPARIN!!! Y Activated 23.6 - SECONDS High RESULTS Jun 17 partial 34.0 alert CALLED TO 2016 thrombpla ER: 10:10 AM stin time FERNYIgnacioJOHANNY (aPTT) 06/17/17 in 1159Noel, Platelet Savage poor plasma by Coagulati on assay Amylase [Enzymatic activity/volume] in Serum or Plasma Observa Value Referen Units Interpr Notes Date ti ce etation Range Amylase 25 - 115 U/L High No Jun 17 [Enzymati informati 2016 c on in 10:10 AM activity/ source volume] data in Serum or Plasma Lipase [Enzymatic activity/volume] in Serum or Plasma Observa Value Referen Units Interpr Notes Date tion ce etation Range Lipase 73 - 393 U/L High Jun 17 [Enzymati NOTIFICAT 2016 c ION 10:10 AM activity/ RESULT volume] in Serum or Plasma CBC W Auto Differential panel in Blood Observa Value Referen Units Interpr Notes Date tion ce etation Range Basophils 0 - 0.2 K/MM3 Normal No Jun 172016 [#/volume on in 10:10 AM ] in source Blood by data Automated count Basophils 0.1 - 2.0 % Normal No Jun 172016 leukocyte on in 10:10 AM s in source Blood by data Automated count Eosinophi 0.0 - 0.4 K/mm3 Normal No Jun 17 ls informati 2016 [#/volume on in 10:10 AM ] in source Blood by data Automated count Eosinophi 0.1 - % Normal No Jun 17 ls/100 12.0 informati 2016 leukocyte on in 10:10 AM s in source Blood by data Automated count Granulocy 1.3 - 8.0 K/mm3 Normal No Jun 17 megan inform2016 [#/volume on in 10:10 AM ] in source Blood by data Automated count Granulocy 37.0 - % Normal No Jun 17 megan/100 80.0 inform2016 leukocyte on in 10:10 AM s in source Blood by data Automated count Hematocri 42.0 - % Normal No Jun 17 t [Volume 52.0 ati 2016 on in 10:10 AM Fraction] source of Blood data Hemoglobi 14.1 - g/dL Normal No Jun 17 n 18.0 inform2016 [Mass/vol on in 10:10 AM ume] in source Blood data Lymphocyt 0.7 - 4.5 K/mm3 Normal No Jun 17 es 2016 [#/volume on in 10:10 AM ] in source Unspecifi data ed specimen by Automated count Lymphocyt 10 - 50 % Normal No Jun 17 es 2016 [#/volume on in 10:10 AM ] in source Unspecifi data ed specimen by Automated count Erythrocy 27 - 31.2 pg Normal No Jun 17 te mean 2016 corpuscul on in 10:10 AM ar source hemoglobi data n [Entitic mass] Erythrocy 31.8 - g/dl Normal No Jun 17 te mean 35.4 2016 corpuscul on in 10:10 AM ar source hemoglobi data n concentra tion [Mass/vol ume] by Automated count Erythrocy 82.2 - fl Normal No Jun 17 te mean 97.8 informati 2017 corpuscul on in 10:10 AM ar volume source [Entitic data volume] by Automated count Monocytes 0.1 - 1.0 K/mm3 Normal No Jun 172016 [#/volume on in 10:10 AM ] in source Blood by data Automated count Monocytes 1.7 - 9.3 % Normal No Jun 8 /100 2016 leukocyte on in 10:10 AM s in source Blood by data Automated count Platelet 7.4 - fl Normal No Jun 17 mean 10.4 2016 volume on in 10:10 AM [Entitic source volume] data in Blood by Automated count Platelets 142 - 424 K/mm3 Normal No Jun 17 inform2016 [#/volume on in 10:10 AM ] in source Blood data Erythrocy 4.6 - 6.2 M/mm3 Normal No Jun 17 megan inform2016 [#/volume on in 10:10 AM ] in source Amniotic data fluid Erythrocy 11.5 - % Normal No Jun 17 te 17.5 2016 distribut on in 10:10 AM ion width source [Entitic data volume] by Automated count Leukocyte 4.8 - K/MM3 Normal No Jun 17 s 10.8 2016 [#/volume on in 10:10 AM ] in source Blood data Natriutietic peptide B [Mass/volume] in Serum or Plasma Observa Value Referen Units Interpr Notes Date tion ce etation Range Natriutie 0 - 100 pg/mL Normal No Apr 05 tic 2016 peptide B on in 10:00 AM source [Mass/vol data ume] in Serum or Plasma INR in Blood by Coagulation assay Observa Value Referen Units Interpr Notes Date tion ce etation Range IS PATIENT ON ANTICOAGULANTS? [...] Normal No Apr 05 in time 11.8 2016 (PT) in on in 10:00 AM Platelet source poor data plasma by Coagulati on assay Activated partial thrombplastin time (aPTT) in Platelet poor plasma by Coagulation assay Observa Value Referen Units Interpr Notes Date tion ce etation Range IS PATIENT ON ANTICOAGULANTS? N PTT RESULTS MUST BE CALLED IF PT ON HEPARIN!!! Y Activated 23.6 - SECONDS High No Apr 05 partial 34.0 alert 2016 thrombpla on in 10:00 AM stin time source (aPTT) data in Platelet poor plasma by Coagulati on assay CBC W Auto Differential panel in Blood Observa Value Referen Units Interpr Notes Date tion ce etation Range Basophils 0 - 0.2 K/MM3 Normal No Apr 052016 [#/volume on in 10:00 AM ] in source Blood by data Automated count Basophils 0.1 - 2.0 % Normal No Apr 052016 leukocyte on in 10:00 AM s in source Blood by data Automated count Eosinophi 0.0 - 0.4 K/mm3 Normal No Apr 05 ls 2016 [#/volume on in 10:00 AM ] in source Blood by data Automated count Eosinophi 0.1 - % Normal No Apr 05 ls/100 12.0 2016 leukocyte on in 10:00 AM s in source Blood by data Automated count Granulocy 1.3 - 8.0 K/mm3 Normal No Apr 05 megan 2016 [#/volume on in 10:00 AM ] in source Blood by data Automated count Granulocy 37.0 - % Normal No Apr 05 megan/100 80.0 2016 leukocyte on in 10:00 AM s in source Blood by data Automated count Hematocri 42.0 - % Normal No Apr 05 t [Volume 52.0 2016 on in 10:00 AM Fraction] source of Blood data Hemoglobi 14.1 - g/dL Normal No Apr 05 n 18.0 2016 [Mass/vol on in 10:00 AM ume] in source Blood data Lymphocyt 0.7 - 4.5 K/mm3 Normal No Apr 05 es 2016 [#/volume on in 10:00 AM ] in source Unspecifi data ed specimen by Automated count Lymphocyt 10 - 50 % Normal No Apr 05 es inform2016 [#/volume on in 10:00 AM ] in source Unspecifi data ed specimen by Automated count Erythrocy 27 - 31.2 pg Normal No Apr 05 te mean 2016 corpuscul on in 10:00 AM ar source hemoglobi data n [Entitic mass] Erythrocy 31.8 - g/dl Normal No Apr 05 te mean 35.4 inform2016 corpuscul on in 10:00 AM ar source hemoglobi data n concentra tion [Mass/vol ume] by Automated count Erythrocy 82.2 - fl Normal No Apr 05 te mean 97.8 inform2016 corpuscul on in 10:00 AM ar volume source [Entitic data volume] by Automated count Monocytes 0.1 - 1.0 K/mm3 Normal No Apr 05 informati 2016 [#/volume on in 10:00 AM ] in source Blood by data Automated count Monocytes 1.7 - 9.3 % Normal No Apr 05 /100 inform2016 leukocyte on in 10:00 AM s in source Blood by data Automated count Platelet 7.4 - fl Low No Apr 05 mean 10.4 inform2016 volume on in 10:00 AM [Entitic source volume] data in Blood by Automated count Platelets 142 - 424 K/mm3 Normal No Apr 05 inform2016 [#/volume on in 10:00 AM ] in source Blood data Erythrocy 4.6 - 6.2 M/mm3 Normal No Apr 05 megan inform2016 [#/volume on in 10:00 AM ] [...] 03 TY NON-HIS informa informa informa informa 2011 PANIC tion in tion in tion in [...] tion that must be protect ed in [facility] with the [facility] Ins[facility] ce Portabi lity [...] [facility] that [facility] Portabi lity [...] [Presen patient ce] in Serum informa by tion Immunoa that ssay must be protect ed [...]
--- OUTSIDE RECORDS SUMMARY | 2017-06-22 19:53 | External Medical Summary Rpt | CCD ---
Author Author , LOKI HOUSE Address Unknown Phone [email or web address] Immunization Name Date Rout CVX Reac Dose Comm Prov Is Faci e tion ent ider Refu lity Give sed n Tdap 07- 115 999 Hist H149 No H149 , 4-20 oric Adso 15 al rbed Info rmat ion - Sour ce Unsp ecif ied
--- OUTSIDE RECORDS SUMMARY | 2017-06-22 19:53 | External Medical Summary Rpt ---
Author Author LACY Lovely, LACY [facility] Organization [employer] Address Unknown Phone Unavailable [...] 37.0 - % Normal No Jun 17 mgean/100 80.0 inform2016 leukocyte on in 10:10 AM [...] - 6.2 M/mm3 Normal No Apr 05 megna inform2016 [#/volume on in 10:00 AM ] [...] tion that must be protect ed in [facility] with the Health Insuran ce [...] tion that must be [facility] Ins[facility] ce Portabi lity [...]
== END 2017-06-18 16:32 | disposition home or self-care (01) | DRG 438 ==
LOC: ER 09:57 → 2ND 12:49
PROVIDERS: Emergency Medicine
DX: K85.90 Acute pancreatitis without necrosis or infection, unspecified (principal); D66 Hereditary factor VIII deficiency; Q21.1 Atrial septal defect; M10.9 Gout, unspecified; J45.909 Unspecified asthma, uncomplicated; R07.9 Chest pain, unspecified; T45.8X6A Underdosing of other primarily systemic and hematological agents, initial encounter; Z91.128 Patient's intentional underdosing of medication regimen for other reason; Z88.1 Allergy status to other antibiotic agents; Z88.0 Allergy status to penicillin; Z88.8 Allergy status to other drugs, medicaments and biological substances; Z79.899 Other long term (current) drug therapy; Z83.3 Family history of diabetes mellitus; Z82.49 Family history of ischemic heart disease and other diseases of the circulatory system; Q21.8 Other congenital malformations of cardiac septa; Z80.1 Family history of malignant neoplasm of trachea, bronchus and lung
CPT/HCPCS: J2405; Q2038